=== PATIENT | male | born 1955 | race African-American/Black ===

== ENCOUNTER 2016-07-28 14:04 | Inpatient (IN) | payer OTHER ==
[~2016-07-28] VITALS: Ht 188 cm; Wt 94.0 kg
[~2016-07-28 14:04] MED LIST: APIX5TAB PO; ASPI325T4 PO; ATOR20TA38 PO; ISOS10TA2 PO; LISI10TA2 PO; METO25TA7 PO; MIRT15TA PO; MIRT45TA PO; Nicotine (14 Mg/24 Hr) TRANSDERM; TADA2.5T PO; THO50 PO; TYL650R PR
[2016-07-28 20:00] VITALS: Ht 188 cm; Wt 94.0 kg
[2016-07-28 20:04] VITALS: PULSE 85
[2016-07-28 20:10] VITALS: BP 158/82; RESP 21
[2016-07-28] MEDS ORDERED: METHYLPREDNISOLONE 40 MG INJ IV ONE (23:00)
[2016-07-28] MEDS ORDERED: ONDANSETRON 4 MG INJ IV PRN (23:00)
[2016-07-28] MEDS ORDERED: ACETAMINOPHEN 325 MG TAB PO PRN (23:00)
[2016-07-28] MEDS ORDERED: ALBUTEROL/IPRATROPIUM (NEB) 3 ML AMP HHN PRN (23:00)
[2016-07-28] MEDS: APIXABAN 5 MG TABLET PO SCH (23:39)
[2016-07-29] VITALS (10 sets, daily range): BP systolic 110–140; BP diastolic 59–87; PULSE 65–85; RESP 16–20
[2016-07-29 01:15] LABS: ADD SCAN DIFF NO
[2016-07-29 01:23] LABS: BASOPHILS % 0.3 % (0.0-2.0); EOSINOPHILS % 0.3 % (0.0-7.0); HEMATOCRIT 47.1 % (42.0-52.0); HEMOGLOBIN 16.1 g/dl (14.0-18.0); LYMPHOCYTES # 1.2 10^3/ul (0.8-2.9); LYMPHOCYTES % 10.2 % (15.0-51.0); MEAN CORPUSCULAR HEMOGLOBIN 31.1 pg (29.0-33.0); MEAN CORPUSCULAR HGB CONC 34.2 g/dl (32.0-37.0); MEAN CORPUSCULAR VOLUME 91.1 fl (82.0-101.0); MONOCYTE # 0.5 10^3/ul (0.3-0.9); MONOCYTES % 4.4 % (0.0-11.0); NEUTROPHILS % 84.5 % (39.0-77.0); PLATELET COUNT 216 10^3/UL (140-415); RED BLOOD COUNT 5.17 10^6/ul (4.70-6.10); RED CELL DISTRIBUTION WIDTH 13.8 % (11.5-14.5); WHITE BLOOD COUNT 11.8 10^3/ul (4.8-10.8)
[2016-07-29 01:33] LABS: ALBUMIN 3.9 g/dl (3.3-4.9); ALBUMIN/GLOBULIN RATIO 1.18; BILIRUBIN,INDIRECT 1.1 mg/dl (0-1.1); BILIRUBIN,TOTAL 1.1 mg/dl (0.2-1.3); CALCIUM 9.3 mg/dl (8.4-10.2); CREATININE 1.15 mg/dl (0.61-1.24); MAGNESIUM 1.8 mg/dl (1.7-2.5); POTASSIUM 4.2 mmol/L (3.5-5.1); TOTAL PROTEIN 7.2 g/dl (6.1-8.1)
[2016-07-29 03:24] LABS: INR 1.12; PARTIAL THROMBOPLASTIN TIME 27.2 Sec (25.0-35.0); PROTIME 14.4 Sec (12.2-14.2); PT RATIO 1.1
[2016-07-29] MEDS ORDERED: FUROSEMIDE 20 MG INJ IV SCH (06:00)
[2016-07-29] MEDS: ISOSORBIDE DINITRATE 10 MG TAB PO SCH ×2 (08:20→12:35)
[2016-07-29] MEDS: APIXABAN 5 MG TABLET PO SCH (08:21)
--- NOTE | 2016-07-29 08:48 | HP ---
Date/Time of Note Date/Time of Note DATE: 07/29/16 TIME: 08:25 Assessment/Plan VTE Prophylaxis VTE Prophylaxis Intervention: other (Eliquis) Lines/Catheters IV [facility]from [facility] Saline Lock Urinary Cath still in place: No Assessment/Plan Assessment/Plan IMPRESSION: 1. SOB, likely 2/2 COPD and CHF exacerbation 2. Probable new onset CHF 3. COPD/Asthma Exacerbation 4. History of CAD and myocardial infarction. 5. History of hypertension. 6. History of Dyslipidemia. 7. Hx of Systolic Dysfunction with EF of 40-45% 8. R LE DVT on Eliquis PLAN - Will treat for both COPD and CHF exacerbation. Pt's symptom of SOB has already resolved. Pt had a 2D-echo in 12/2015 which showed EF of 40-45%. No need to repeat during this hospitalization. - Lasix, Duonebs, steroid and continue home meds including Eliquis - Likely discharge in the afternoon. 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 He used his inhalers, but symptom persisted. At outside hospital, CXR showed pulmonary vascular congestion. He was given breathing treatment, lasix and here he received steroid and now his symptoms have resolved and he is feeling really well. Denied chest pain, N/V, f/c. He did however c/o pain in left side of his tongue after he accidentally bit it. . PMH/Family/Social Social History Smoking Status: Former smoker Exam/Review of Systems Vital Signs Vitals Vital Signs Date Time Temp Pulse Resp B/P Pulse Ox O2 Delivery O2 Flow Rate FiO2 07/29/16 08:17 65 07/29/16 07:48 Nasal Cannula 2.0 07/29/16 07:06 97.8 18 140/78 98 Intake and Output 07/28/16 07/28/16 07/29/16 14:59 22:59 06:59 Intake Total 320 ml Output Total 850 ml Balance -530 ml Exam Constitutional: alert, oriented, well developed Psych: nl mood/affect, no complaints Head: atraumatic, normocephalic Eyes: EOMI, PERRL Respiratory: clear to auscultation, normal air movement Cardiovascular: regular rate and rhythm Gastrointestinal: non-tender, soft Extremities: normal pulses Labs Result Diagram: 07/29/164907/29/1649 Medications Medications Current Medications Atorvastatin Calcium (Lipitor) 20 mg HS PO ; Start 07/29/16 at 21:00 Isosorbide Dinitrate (Isordil) 20 mg TID PO Last administered on 07/29/16 08: 20; Admin Dose 20 MG; Start 07/29/16 at 09:00 Lisinopril (Zestril) 10 mg DAILY PO Last administered on 07/29/16 08:20; Admin Dose 10 MG; Start 07/29/16 at 09:00 Metoprolol Succinate (Toprol Xl) 25 mg DAILY PO Last administered on 07/29/16 08:21; Admin Dose 25 MG; Start 07/29/16 at 09:00 Mirtazapine (Remeron) 45 mg HS PO ; Start 07/29/16 at 21:00 Aspirin (Aspirin) 162 mg DAILY PO Last administered on 07/29/16 08:19; Admin Dose 162 MG; Start 07/29/16 at 09:00 Furosemide (Lasix) 20 mg DAILY@06 IV Last administered on 07/29/16 05:44; Admin Dose 20 MG; Start 07/29/16 at 06:00 Ondansetron HCl (Zofran Inj) 4 mg Q6H PRN IV NAUSEA AND/OR VOMITING; Start at 23:00 Acetaminophen (Tylenol Tab) 650 mg Q6H PRN PO PAIN AND OR ELEVATED TEMP; Start 07/28/16 at 23:00 Apixaban (Eliquis) 5 mg BID PO Last administered on 07/29/16 08:21; Admin Dose 5 MG; Start 07/28/16 at 23:30 NERISSA DEMARCO MD Jul 29, 2016 08:37
[2016-07-29] MEDS ORDERED: ASPIRIN 81 MG TAB PO SCH (09:00)
[2016-07-29] MEDS ORDERED: HEPARIN 5,000 UNIT/0.5 ML VIAL SC SCH (09:00)
[2016-07-29] MEDS ORDERED: LISINOPRIL 10 MG TAB PO SCH (09:00)
[2016-07-29] MEDS ORDERED: METOPROLOL (XL) 25 MG TAB PO SCH (09:00)
--- NOTE | 2016-07-29 09:25 | RADRPT ---
PROCEDURE: XR Chest. CLINICAL INDICATION: Shortness of breath. TECHNIQUE: Single frontal view. COMPARISON: 01/20/2016. FINDINGS: The right internal jugular vein catheter has been removed. There is atelectasis at the lung bases, worse than seen previously. The lungs are otherwise clear. Surgical clips overlie the right mid asia g zone. The heart size is normal. There is no pleural effusion. There is no pneumothorax. IMPRESSION: 1. Worse appearance of the lung bases. 2. Right IJ catheter removed. RPTAT: QQ .Sam Henry MD, MD Date Time Electronically viewed and signed by .Sam Henry MD, MD on 07/29/2016 09:25 .R/
[2016-07-29] MEDS ORDERED: LAS20 PO (15:44)
[2016-07-29] MEDS ORDERED: MED4DP PO (15:44)
--- NOTE | 2016-07-29 15:45 | PDOCDIS ---
Discharge Instructions CONDITION Patient Condition: Good HOME CARE INSTRUCTIONS: Special Diet: CARDIAC ACTIVITY: Activity Restrictions: No Restrictions FOLLOW UP/APPOINTMENTS Appointments F/U WITH YOUR PCP IN 1-2 WEEKS BRITTANY LEBLANC Jul 29, 2016 15:45
--- NOTE | 2016-07-29 18:25 | DS ---
DATE OF ADMISSION: 07/28/2016 DATE OF DISCHARGE: 07/29/2016 DISCHARGE DIAGNOSES: 1. Acute respiratory distress likely secondary to congestive heart failure exacerbation. Patient d ischarged with Lasix. 2. Chronic obstructive pulmonary disease, stable. The patient given a Medrol Dosepak and possible chronic obstructive pulmonary disease exacerbation. 3. History of heart failure with an EF of 44 to 45%, acutely decompensated during this hospitalizat ion, now improved with Lasix. 4. History of right lower extremity deep venous thrombosis on Eliquis. 5. History of hypertension, stable. HOSPITAL COURSE: The patient is a 60-year-old male with history of heart failure, hypertension, ast hma, COPD, smoking history. The patient's baseline EF is 45%. The patient does have a history of p eripheral vascular disease as well as a DVT in the past for the right lower extremity. The patient presents with shortness of breath. The patient was given Lasix as well as breathing treatments. X- ray did show a worse appearance of the right lung base and his BNP was elevated. It was felt that h is shortness of breath was more from heart failure exacerbation. He does not have any Lasix at home . The patient did improve after receiving Lasix IV. Although once again he did also receive steroi ds but it is unlikely that this helped him so quickly, hence his presentation of rapid improvement i s more consistent with CHF exacerbation. On the day of discharge, the patient was doing well. He h ad no acute complaints, no longer complaining of shortness of breath. He denied any chest pain. His vitals and labs were stable. His physical exam was stable. His questions were answered. The patie nt was told that he would be given Lasix upon discharge and take it as needed for shortness of breat h. On the day of discharge there was no other acute issues. CONDITION ON DISCHARGE: Stable. DISPOSITION: Home. MEDICATIONS: Patient was given a prescription for Lasix 20 mg daily as needed for shortness of rob th as well as a Medrol Dosepak. The patient is to continue his other home medications. FOLLOWUP: The patient is to follow up with his PCP in 1 to 2 weeks. Greater than 30 minutes was spent coordinating discharge of this patient. Dictated By: BRITTANY GUEVARA/KIM Conf#: [id number] [facility]#: [id number]
[2016-07-29] MEDS ORDERED: MIRTAZAPINE 15 MG TAB PO SCH (21:00)
[2016-07-29] MEDS ORDERED: ATORVASTATIN 20 MG TAB PO SCH (21:00)
== END 2016-07-29 17:35 | disposition home or self-care (01) | DRG 292 ==
LOC: TEL 18:41
PROVIDERS: ADMIT Family Medicine; ATTEND Family Medicine
DX: I11.0 Hypertensive heart disease with heart failure (principal); J44.1 Chronic obstructive pulmonary disease with (acute) exacerbation; I73.9 Peripheral vascular disease, unspecified; Z79.01 Long term (current) use of anticoagulants; J45.909 Unspecified asthma, uncomplicated; I25.10 Atherosclerotic heart disease of native coronary artery without angina pectoris; I25.2 Old myocardial infarction; E78.5 Hyperlipidemia, unspecified; I50.9 Heart failure, unspecified; Z86.718 Personal history of other venous thrombosis and embolism; Z87.891 Personal history of nicotine dependence
CPT/HCPCS: 71010; 80053; 83735; 83880; 84100; 84484; 85025; 85610; 85730; J1940; J2920

== ENCOUNTER 2017-06-27 16:04 | Inpatient (IN) | END 2017-07-14 19:48 | DRG 240 ==

== ENCOUNTER 2018-01-06 13:36 | Inpatient (IN) | END 2018-01-12 15:13 | disposition home health service (06) | DRG 282 ==

== ENCOUNTER 2018-01-23 15:28 | Inpatient (IN) | END 2018-01-29 20:16 | disposition home or self-care (01) | DRG 871 ==

== ENCOUNTER 2018-02-03 04:46 | Inpatient (IN) | END 2018-02-05 14:00 | disposition home or self-care (01) | DRG 291 ==

== ENCOUNTER 2018-03-28 13:35 | Inpatient (IN) | payer OTHER ==
[~2018-03-28] VITALS: Ht 127 cm; Wt 74.0 kg
[~2018-03-28 13:35] MED LIST changes: -APIX5TAB PO; +ASCO500C7 PO; -ASPI325T4 PO; +ATOR-2 PO; -ATOR20TA38 PO; +BUDE0.5A HHN; +CARV12.579 PO; +FERGON PO; +FURO40TA4 PO; +IPRA3AMP29 HHN; -ISOS10TA2 PO; +LEVO500T48 PO; -LISI10TA2 PO; +LISI2.5T59 PO; -METO25TA7 PO; -MIRT15TA PO; -Nicotine (14 Mg/24 Hr) TRANSDERM; +PANT40TA4 PO; +SPIR25TA PO; -TADA2.5T PO; +TAMS-14 PO; +TIOT18CA INH; -TYL650R PR; +Vancomycin Iv Per Pharmacy XX
--- NOTE | 2018-03-28 13:38 | ERD ---
ER Documentation Chief Complaint Chief Complaint rt leg pain, sob HPI The patient is a 62-year-old male, presenting to the ER because of acute bilateral lower extremity stump pain for 5 days, worse on the right than the left. He had right lower extremity above knee amputation last year, left lower extremity above-knee amputation 9 months ago. He denies fever, chills, complains of intermittent cough for 2 weeks, denies neck pain, chest pain with vomiting/radiation/exertion/diaphoresis, complains of dyspnea, worse with urination. He denies diarrhea, constipation. He smokes and drinks and does cocaine and marijuana Medical history: Dyslipidemia, COPD, pulmonary hypertension, CAD, history of CHF, depression, bipolar Past surgical history: Bilateral above-knee amputation, infected vascular graft was removed, detail is uncleared ROS All systems reviewed and are negative except as per history of present illness. Medications Home Meds Active Scripts Spironolactone* (Aldactone*) 25 Mg Tablet, 25 MG PO DAILY for 90 Days, #90 TAB Prov:NIKI MCCARTHY MD 02/04/18 Furosemide* (Furosemide*) 40 Mg Tablet, 40 MG PO BID for 60 Days, #120 TAB 5 Re fills Prov:NIKI MCCARTHY MD 02/04/18 Pantoprazole* (Pantoprazole*) 40 Mg Tablet.dr, 40 MG PO DAILY@06 for 30 Days, #30 TAB 2 Refills Prov:MASTER HOWARD 01/29/18 Budesonide* (Budesonide*) 0.5 Mg/2 Ml Ampul.neb, 0.5 MG HHN BID RESP THERAPY for 30 Days, #30 AMP 2 Refills Prov:MASTER HOWARD 01/29/18 Tiotropium Jber* (Spiriva*) 18 Mcg Cap.w.dev, 1 INH INH DAILY for 30 Days, #30 DOSE 2 Refills Prov:MASTER HOWARD 01/29/18 Tamsulosin Hcl* (Flomax*) 0.4 Mg Cap.er.24h, 0.4 MG PO HS for 30 Days, #30 CAP 2 Refills Prov:MASTER HOWARD 01/29/18 Ipratropium-Albuterol (Ipratropium-Albuterol) 0.5-3 Mg/3 Ml Ampul.neb, 3 ML HHN Q6HWA RESP THERAPY for 30 Days, #30 DOSE Prov:MASTER HOWARD. 01/29/18 Ferrous Gluconate* (Fergon*) 325 Mg Tab, 325 MG PO BID, #60 TAB 2 Refills Prov:MASTER HOWARD. 01/29/18 Reported Medications Metoprolol Succinate* (Toprol XL*) 25 Mg Tab.sr.24h, 12.5 MG PO DAILY, #30 TAB 03/28/18 Montelukast Sodium* (Montelukast Sodium*) 10 Mg Tablet, 10 MG PO QHS, #30 TAB 03/28/18 Apixaban* (Eliquis*) 5 Mg Tablet, 5 MG PO BID, TAB 03/28/18 Cholecalciferol (Vitamin D3) (Vitamin D-3) 2,000 Unit Tablet, 2000 UNIT PO BID, TAB 03/28/18 Atorvastatin* (Atorvastatin*) 80 Mg Tablet, 80 MG PO QHS, #30 TAB 06/27/17 Discontinued Reported Medications Carvedilol* (Carvedilol*) 12.5 Mg Tablet, 12.5 MG PO BID, #60 TAB HOLD FOR SBP LESS THAN <110 OR HR<60 06/27/17 Ascorbic Acid* (Vitamin C*) 500 Mg Capsule.sa, 500 MG PO DAILY, CAP 06/27/17 Discontinued Scripts Lisinopril* (Lisinopril*) 2.5 Mg Tablet, 2.5 MG PO DAILY, #30 TAB Prov:NIKI MCCARTHY MD 02/04/18 Levofloxacin* (Levaquin*) 500 Mg Tablet, 500 MG PO DAILY for 4 Days, #4 TAB Prov:MASTER HOWARDDolores 01/29/18 [Vancomycin Iv Per Pharmacy] 1 EA EACH No Conflict Check, 0 EA XX .PER PROTOCOL per previous orders Prov:MASTER HOWARDDolores 01/29/18 Allergies Allergies: Coded Allergies: tetracycline (Verified Allergy, Intermediate, RASH, 03/28/18) PMhx/Soc History of Surgery: Yes (b/l AKA, heart graft) Anesthesia Reaction: No Hx Neurological Disorder: No Hx Respiratory Disorders: Yes (COPD; Pulmonary HTN) Hx Cardiac Disorders: Yes (CAD, CHF, HTN, s/p heart graft) Hx Psychiatric Problems: Yes (bipolar, depression) Hx Miscellaneous Medical Probl: No Hx Alcohol Use: No Hx Substance Use: Yes (cocaine, marijuana, & ?meth) Hx Tobacco Use: Yes Physical Exam Vitals Vital Signs Date Temp Pulse Resp B/P (MAP) Pulse Ox O2 O2 Flow FiO2 Time Delivery Rate 03/28/18 98.1 79 18 131/79 96 13:42 (96) Physical Exam Const: No acute distress. Head: Atraumatic. Eyes: Normal Conjunctiva. ENT: Normal External Ears, Nose and Mouth. Neck: Full range of motion. No meningismus. Resp: Bibasilar crackle Cardio: Regular rate and rhythm. Abd: Soft, non distended, normal bowel sounds, non tender. Skin: No petechiae or rashes. Back: No midline or flank tenderness. Ext: Bilateral stump edema, no posterior thigh tenderness. Right stump mild edema, not warm to touch. Minimal erythema at the right groin Neur: Awake and alert. No focal deficit Psych: Normal Mood and Affect. Result Diagram: 03/28/18 1409 03/28/18 1409 Results 24 hrs Laboratory Tests Test 03/28/18 14:09 White Blood Count 13.6 10^3/ul Red Blood Count 5.28 10^6/ul Hemoglobin 12.5 g/dl Hematocrit 41.1 % Mean Corpuscular Volume 77.8 fl Mean Corpuscular Hemoglobin 23.7 pg Mean Corpuscular Hemoglobin Concent 30.4 g/dl Red Cell Distribution Width 20.2 % Platelet Count 393 10^3/UL Mean Platelet Volume 11.0 fl Immature Granulocytes % 1.000 % Neutrophils % 79.9 % Lymphocytes % 12.3 % Monocytes % 6.7 % Eosinophils % 0.0 % Basophils % 0.1 % Nucleated Red Blood Cells % 0.0 /100WBC Immature Granulocytes # 0.130 10^3/ul Neutrophils # 10.9 10^3/ul Lymphocytes # 1.7 10^3/ul Monocytes # 0.9 10^3/ul Eosinophils # 0.0 10^3/ul Basophils # 0.0 10^3/ul Nucleated Red Blood Cells # 0.0 10^3/ul Prothrombin Time 20.2 Sec Prothrombin Time Ratio 1.6 INR International Normalized Ratio 1.69 Activated Partial Thromboplast Time 33.4 Sec Sodium Level 133 mmol/L Potassium Level 4.0 mmol/L Chloride Level 90 mmol/L Carbon Dioxide Level 30 mmol/L Anion Gap 13 Blood Urea Nitrogen 25 mg/dl Creatinine 0.95 mg/dl Est Glomerular Filtrat Rate mL/min > 60 mL/min Glucose Level 113 mg/dl Calcium Level 9.4 mg/dl Troponin I 0.015 ng/ml B-Type Natriuretic Peptide 84268 PG/ML Current Medications Medications Dose Sig/Dario Start Time Status Last (Trade) Ordered Route PRN Stop Time Admin Dose Reason Admin Furosemide 40 mg ONCE ONCE 03/28/18 DC (Lasix) IV 15:00 03/28/18 15:01 Ketorolac 30 mg ONCE STAT 03/28/18 DC Tromethamine IV 14:56 (Toradol) 03/28/18 14:57 Procedures/MDM [place] [address] Radiology Main Line: [phone] DIAGNOSTIC IMAGING REPORT Patient: CLINT ZAMORA : 1955 Age: 62 Sex: M MR #: [id number] DOS: 03/28/18 1356 Ordering MD: ESPERANZA HOPPER MD Location: E/R Room/Bed: PROCEDURE: XR Chest. CLINICAL INDICATION: Chest pain TECHNIQUE: Single frontal view of the chest was obtained COMPARISON: CR CHEST 05/25/2017 FINDINGS: The heart is enlarged. The thoracic aorta is calcified. There is right pleural thickening and right lower lobe atelectasis. The left lung base was not completely included. There is no pneumothorax. RPTAT: AA IMPRESSION: Mild cardiomegaly. Calcified aorta consistent with atherosclerotic disease. Right pleural thickening and right lower lobe atelectasis. .Alec Rico MD, Date Time Electronically viewed and signed by .Alec Rico MD, MD on 03/28/2018 14:23 .S/ CC: ESPERANZA HOPPER MD [id number] [place] [address] Radiology Main Line: [phone] DIAGNOSTIC IMAGING REPORT Patient: CLINT ZAMORA : 1955 Age: 62 Sex: M [id number] DOS: 03/28/18 1356 Ordering MD: ESPERANZA HOPPER MD Location: E/R Room/Bed: PROCEDURE: US Lower extremity Venous. CLINICAL INDICATION: Bilateral lower extremity edema TECHNIQUE: Multiple sonographic images of the bilateral lower extremity deep venous system was obtained utilizing grayscale, color-flow, compressive sonography and doppler imaging with augmentation. The images were reviewed on a PACS workstation. COMPARISON: None. FINDINGS: There is normal compressibility and flow within the bilateral common femoral, femoral veins. The patient is status post bilateral AKA. RPTAT: AA IMPRESSION: No sonographic evidence for deep venous thrombosis. .Alec Rico MD, MD Date Time Electronically viewed and signed by .Alec Rico MD, MD on 03/28/2018 14:55 .S/ CC: ESPERANZA HOPPER MD [phone] EKG: Read by emergency physician Rate/Rhythm: Sinus tachycardia 102 beats/min QRS, ST, T-waves: No ST elevation, no T inversion. LAE, RVH, inferior , anterolateral Q's Impression: Abnormal EKG MEDICAL MAKING DECISION: The patient is a 62-year-old male, presenting with acute CHF exacerbation, acute bilateral stump pain of unclear etiology. He was treated with Lasix 40 mg IV for acute CHF exacerbation, Toradol 30 mg IV for bilateral stump pain with good response The differential diagnoses considered include but are not limited to asthma, COPD, pneumonia, pulmonary embolus, pleural effusion, congestive heart failure, stump cellulitis, DVT, phantom pain. Departure Diagnosis: Primary Impression: CHF (congestive heart failure) Additional Impressions: Pain of amputation stump of right lower extremity Anemia Condition: Good Comments I discussed the findings with the patient. I discussed the patient with the hospitalist Dr. Carranza at 3:15 PM who was made aware of the lab, the treatment, the patient condition. The patient is admitted to Tel Obs Disclaimer: Inadvertent spelling and grammatical errors are likely due to EHR/dictation software use and do not reflect on the overall quality of patient care. Also, please note that the electronic time recorded on this note does not necessarily reflect the actual time of the patient encounter. ESPERANZA HOPPER MD Mar 28, 2018 13:38
[2018-03-28] MEDS ORDERED: KETOROLAC 30 MG INJ IV STA (14:56)
[2018-03-28] MEDS ORDERED: FUROSEMIDE 40 MG INJ IV ONE (15:00)
[2018-03-28] MEDS ORDERED: CHOL200056 PO (15:17)
[2018-03-28] MEDS ORDERED: APIX5TAB PO (15:18)
[2018-03-28] MEDS ORDERED: MONT10TA24 PO (15:18)
[2018-03-28] MEDS ORDERED: METO-335 PO (15:19)
--- NOTE | 2018-03-28 16:28 | HP ---
Date/Time of Note Date/Time of Note DATE: 03/28/18 TIME: 16:28 Assessment/Plan VTE Prophylaxis SCD applied (from Nsg): Yes Pharmacological prophylaxis: LMWH Lines/Catheters IV Catheter Type (from Nrsg): Saline Lock Assessment/Plan Assessment/Plan 1. Acute pain in right thigh - No acute trauma to area and patient has been trying to self medicate. Planning to see pain management but has not been successful with appointment yet - LE US negative for DVT. Will check arterial studies - Pain control and if not effective, will ask pain management for assistance - PT/OT 2. Acute on chronic systolic heart failure - due to missed Lasix doses - Cardiology consultation placed. Will start back on Lasix and continue Aldactone as well - Echo results noted from prior admission - BNP noted 3. Wounds on elbows and sacrum - will have wound care consultation evaluate need for surgical intervention - does not appear infected but given elevated WBC with neutrophils, will empirically treat with antibiotics 4. CAD - continue all home medications - stable 5. b/l AKA secondary PVD - PT/OT to assist with teaching how to transfer 6. Diet - Cardiac 7. DVT ppx - LMWH 8. Code status - Full 9. Disposition - Admit to telemetry for treatment of right leg pain and CHF exacerbation HPI/ROS Admit Date/Time Admit Date/Time 03/28/18 1500 Hx of Present Illness 62 yo M with PMH systolic CHF, CAD, COPD, and b/l AKA secondary to PVD presents to ED with worsening pain in right thigh. Patient states he has been experiencing pain in the thigh for the past 5 days. He admits to trying cocaine, marijuana, and alcohol for pain relief but no improvement. He last used substances on Monday. Patient denies any trauma to area and unsure why he is experiencing the pain. Patient also admits to misplacing his Lasix bottle and has not taken his medication in 2 days. He admits to shortness of breath but denies any chest pain, palpations, wheezing, dizziness, LOC, abdominal issues, or urinary issues. He is concerned about noted drainage around his groin area as well. He has been using his elbows to readjust himself due to not being able to use his legs which has been causing skin breakdown. Patient states he lives alone but has good family support. Refusing SNF placement as well. ROS All 12 systems reviewed and pertinent positives as per HPI. All others negative. Constitutional: No chills, No fatigue, No nausea Eyes: No discharge ENT: No congestion Respiratory: shortness of breath; No cough, No sputum, No wheezing Cardiovascular: edema; No chest pain, No lightheadedness, No palpitations Gastrointestinal: No pain, No constipation, No diarrhea, No nausea, No vomiting Genitourinary: no complaints Musculoskeletal: other (right thigh pain) Skin: rash (groin), skin lesions (elbows, buttocks) Neurologic: no complaints Endocrine: no complaints Lymphatic: no complaints Psychological: nl mood/affect Immunologic: no complaints PMH/Family/Social Past Medical History Medical History: congestive heart failure, coronary artery disease, deep vein thrombosis, other (PVD s/p b/l AKA, COPD) Coded Allergies: tetracycline (Verified Allergy, Intermediate, RASH, 03/28/18) Past Surgical History Past Surgical Hx: other (b/l AKA, right graft) Family History Significant Family History: no pertinent family hx Social History Alcohol Use: occasionally Smoking Status: Current every day smoker Drug Use: cocaine, marijuana Exam/Review of Systems Vital Signs Vitals Vital Signs Date Temp Pulse Resp B/P (MAP) Pulse Ox O2 O2 Flow FiO2 Time Delivery Rate 03/28/18 100 18 118/75 100 Room Air 16:08 (89) 03/28/18 98.2 15:25 Exam Exam General: Patient is currently sitting in bed, no acute distress. answering questions appropriately HEENT: Atraumatic, normocephalic. The pupils are equal, round and reactive. Extraocular motor are intact Neck: Supple with full range of motion. No rigidity or meningismus Lungs: Diminished breath rounds bilaterally, crackles at the bases, nonlabored breathing. no wheezing Heart: Normal S1-S2, Regular rhythm and rate. Abdomen: Soft , nontender, nondistended , bowel sounds are present. No guarding no rebound tenderness , No masses or organomegaly. No costovertebral temporal angle mass Extremities: Bilateral AKA. tenderness with palpation right thigh with notable swelling. cool to touch Neurologic: Normal mental status, speech normal, cranial nerves II through XII are intact, motor and sensory are intact, Skin: moisture and erythema groin folds b/l, R>L, abrasions on elbows bilaterally without discharge Medications Medications Home medications reviewed Current Medications Atorvastatin Calcium (Lipitor) 80 mg QHS PO ; Start 03/28/18 at 21:00; Status UNV Budesonide (Pulmicort (Neb)) 0.5 mg BID RESP THERAPY HHN ; Start 03/28/18 at 20:00; Status UNV Ferrous Gluconate (Fergon) 325 mg BID PO ; Start 03/28/18 at 21:00; Status UNV Albuterol/ Ipratropium (Duoneb) 3 ml Q6HWA RESP THERAPY HHN ; Start 03/28/18 a t 20:00; Status UNV Metoprolol Succinate (Toprol Xl) 12.5 mg DAILY PO ; Start 03/29/18 at 09:00; Status UNV Montelukast Sodium (Singulair) 10 mg QHS PO ; Start 03/28/18 at 21:00; Status UNV Pantoprazole (Protonix Tab) 40 mg DAILY@06 PO ; Start 03/29/18 at 06:00; Status UNV Spironolactone (Aldactone) 25 mg DAILY PO ; Start 03/29/18 at 09:00; Status UNV Tamsulosin HCl (Flomax) 0.4 mg HS PO ; Start 03/28/18 at 21:00; Status UNV Tiotropium Rochelle (Spiriva) 1 inh DAILY INH ; Start 03/29/18 at 09:00; Status UNV Miscellaneous Information 2,000 unit BID PO ; Start 03/28/18 at 21:00; Status UNV Albuterol (Proventil 0.083% (Neb)) 2.5 mg Q2H RESP THERAPY PRN HHN SHORTNESS OF BREATH; Start 03/28/18 at 16:30; Status UNV Acetaminophen/ Hydrocodone Bitart (Agency (5/325)) 1 tab Q4H PRN PO MODERATE PAIN LEVEL 4-6; Start 03/28/18 at 16:30; Status UNV Acetaminophen/ Hydrocodone Bitart (Agency (10/325)) 1 tab Q4H PRN PO SEVERE PAIN LEVEL 7-10; Start 03/28/18 at 16:30; Status UNV Morphine Sulfate (morphine) 2 mg Q4H PRN IV SEVERE PAIN LEVEL 7-10; Start 03/28/18 at 16:30; Status UNV Results Result Diagram: 03/28/18 1409 03/28/18 1409 Results 24 hrs Laboratory Tests Test 03/28/18 14:09 White Blood Count 13.6 #H Red Blood Count 5.28 # Hemoglobin 12.5 #L Hematocrit 41.1 #L Mean Corpuscular Volume 77.8 L Mean Corpuscular Hemoglobin 23.7 L Mean Corpuscular Hemoglobin Concent 30.4 L Red Cell Distribution Width 20.2 H Platelet Count 393 # Mean Platelet Volume 11.0 H Immature Granulocytes % 1.000 H Neutrophils % 79.9 H Lymphocytes % 12.3 L Monocytes % 6.7 Eosinophils % 0.0 Basophils % 0.1 Nucleated Red Blood Cells % 0.0 Immature Granulocytes # 0.130 H Neutrophils # 10.9 H Lymphocytes # 1.7 Monocytes # 0.9 Eosinophils # 0.0 Basophils # 0.0 Nucleated Red Blood Cells # 0.0 Prothrombin Time 20.2 H Prothrombin Time Ratio 1.6 INR International Normalized Ratio 1.69 Activated Partial Thromboplast Time 33.4 Sodium Level 133 L Potassium Level 4.0 Chloride Level 90 L Carbon Dioxide Level 30 Anion Gap 13 Blood Urea Nitrogen 25 H Creatinine 0.95 Est Glomerular Filtrat Rate mL/min > 60 Glucose Level 113 Calcium Level 9.4 Troponin I 0.015 B-Type Natriuretic Peptide 61342 H Imaging PROCEDURE: XR Chest. CLINICAL INDICATION: Chest pain TECHNIQUE: Single frontal view of the chest was obtained COMPARISON: CR CHEST 05/25/2017 FINDINGS: The heart is enlarged. The thoracic aorta is calcified. There is right pleural thickening and right lower lobe atelectasis. The left lung base was not completely included. There is no pneumothorax. RPTAT: AA IMPRESSION: Mild cardiomegaly. Calcified aorta consistent with atherosclerotic disease. Right pleural thickening and right lower lobe atelectasis. .Alec Rico MD, Date Time Electronically viewed and signed by .Alec Rico MD, on 03/28/2018 14:23 SUSAN FAULKNER MD Mar 28, 2018 16:28
[2018-03-28] MEDS ORDERED: NITROGLYCERIN (SL) 0.4 MG TAB SL PRN (16:30)
[2018-03-28] MEDS ORDERED: NACL 0.9% 3 ML SYG IV SCH (16:30)
[2018-03-28] MEDS ORDERED: HYDROCODONE/APAP (10/325) TAB PO PRN (16:30)
[2018-03-28] MEDS ORDERED: ONDANSETRON 4 MG INJ IV PRN (16:30)
[2018-03-28] MEDS ORDERED: ALBUTEROL 0.083% (NEB) 2.5 MG/3 ML AMP HHN PRN (16:30)
[2018-03-28] MEDS ORDERED: HYDROCODONE/APAP (5/325) TAB PO PRN (16:30)
[2018-03-28 17:46] VITALS: PULSE 97
[2018-03-28] MEDS: FUROSEMIDE 40 MG INJ IV SCH (18:18)
[2018-03-28 18:35] VITALS: BP 124/69; PULSE 52; RESP 16
[2018-03-28] MEDS ORDERED: PENDING SANTYL ORDER FOR WOUND CARE XX PRN (19:00)
[2018-03-28] MEDS: BUDESONIDE (NEB) 0.5MG/2ML AMP HHN SCH (19:32)
[2018-03-28] MEDS: ALBUTEROL/IPRATROPIUM (NEB) 3 ML AMP HHN SCH (19:32)
[2018-03-28 19:57] VITALS: Ht 127 cm; Wt 74.0 kg
[2018-03-28 20:00] VITALS: BP 130/79; PULSE 101; PULSE 99; RESP 17
[2018-03-28] MEDS: morphine 2 MG INJ IV PRN (20:48)
[2018-03-28] MEDS: CHOLECALCIFEROL 2,000 UNIT CAP PO SCH (20:49)
[2018-03-28] MEDS: MONTELUKAST 10 MG TAB PO SCH (20:49)
[2018-03-28] MEDS: NYSTATIN 30 GM POWDER BTL TOP SCH (20:49)
[2018-03-28] MEDS: FERROUS GLUCONATE (EC) 325 MG TAB PO SCH (20:49)
[2018-03-28] MEDS: CEFTRIAXONE 1 GM/50 ML (PMX) 50 ML IVPB SCH (20:49)
[2018-03-28] MEDS: TAMSULOSIN (SR) 0.4 MG CAP PO SCH (20:49)
[2018-03-28] MEDS: ATORVASTATIN 80 MG TAB PO SCH (20:50)
[2018-03-28] MEDS ORDERED: NON-FORMULARY/PATIENT OWN MED (Cholecalciferol (Vitamin D3) (Vitamin D-3) 2,000 UNIT) PO SCH (21:00)
[2018-03-28] MEDS: SACUBITRIL/VALSARTAN (24mg-26mg) TABLET PO SCH (21:39)
--- NOTE | 2018-03-28 22:21 | CONS ---
DATE OF ADMISSION: 03/28/2018 DATE OF CONSULTATION: 03/28/2018 REASON FOR CONSULTATION: Cardiomyopathy, severely depressed left ventricular ejection fraction, abhishek estive heart failure exacerbation. REQUESTING PHYSICIAN: Dr. Carranza from the hospitalist service. HISTORY OF PRESENT ILLNESS: Mr. Solorio is a very pleasant 62-year-old male well known to myself from multiple prior hospital admissions, a primary office patient, with history of systolic congestive hea rt failure with last known left ventricular ejection fraction of approximately 20%, dyslipidemia, hyp ertension, substance abuse, COPD, prior tobacco intake, anemia, bilateral lower extremity amputation, who presents with right lower extremity stump pain and mild shortness of breath. The patient denied associated chest pain. Upon arrival, temperature 98.1, blood pressure 131/79, pulse 79, respiratory rate 18, satting 96%. The patient's labs are notable for white count of 13.6, hemoglobin 12.5, plat elet count 393; sodium 133, potassium 4.0, creatinine 0.9, BUN 25; troponin negative; BNP of 11,500; INR of 1.69. The patient underwent a venous ultrasound revealing no sonographic evidence of DVT and a chest x-ray revealing mild cardiomegaly, calcified aorta consistent with atherosclerotic disease, r ight pleural thickening, and right lower lobe atelectasis. The patient's electrocardiogram revealed sinus tachycardia, rate of 119, with right superior axis deviation and poor R-wave progression across the anterior precordial leads. The patient subsequently has received a dose of Lasix and Toradol fo r pain and is now admitted to the floor. Since admit to floor, patient continued to have leg pain, s tump pain. PAST MEDICAL HISTORY: As above in HPI. MEDICATIONS CURRENTLY IN HOSPITAL: 1. Toprol-XL 12.5 mg daily. 2. Aldactone 25 mg daily. 3. Spiriva. 4. Lovenox 40 mg subQ daily. 5. Protonix. 6. Lipitor. 7. Ferrous gluconate. 8. Flomax. 9. DuoNeb. 10. Lasix 40 mg IV b.i.d. 11. Albuterol. 12. Morphine. 13. PRN sublingual nitroglycerin. 14. PRN Colace. 15. PRN milk of magnesia. MEDICATIONS PRIOR TO ADMIT: 1. Aspirin. 2. Flomax. 3. Eliquis 5 mg p.o. b.i.d. 4. Ferrous gluconate. 5. Atorvastatin. 6. Toprol. 7. Aldactone. 8. Lasix 9. Singulair. 10. Protonix. ALLERGIES: TETRACYCLINE. SOCIAL HISTORY: No current tobacco. History of substance abuse. No EtOH intake currently. FAMILY HISTORY: No history of sudden cardiac or early CAD. REVIEW OF SYSTEMS: As above in HPI. CONSTITUTIONAL: No fevers or chills. PULMONARY: Shortness of breath. CARDIOVASCULAR: Congestive heart failure. GASTROINTESTINAL: No vomiting. GENITOURINARY: No hematuria. MUSCULOSKELETAL: Degenerative joint disease. PSYCHIATRIC: No documented psych history. NEUROLOGIC: No documented history of CVA. ENDOCRINE: No documented history of diabetes mellitus. PHYSICAL EXAMINATION: VITAL SIGNS: Temperature 98.2, blood pressure 118/75, pulse 100, respiratory rate 18, saturating 100 %. GENERAL: The patient is alert, awake, no acute distress. NECK: JVP approximately 8 to 9 cm of water. CHEST: Fair air movement throughout. HEART: Regular rate and rhythm, normal S1 and S2, laterally displaced PMI. ABDOMEN: Positive bowel sounds, soft. EXTREMITIES: Bilateral lower extremity amputation with stump pain, no noted ulcerations. LABORATORIES: As above in HPI with most recent from today: White count 13.6, hemoglobin 12.5, platel et count 393. Sodium 133, potassium 4.0, creatinine 0.9, BUN 25. Troponin negative. BNP of 11,500. INR 1.69. IMAGING STUDIES: As above in HPI. No further imaging studies for my review at this time. ECG: As above in HPI. No further electrocardiograms for my review at this time. IMPRESSION: 1. Congestive heart failure exacerbation, systolic, acute on chronic. 2. Cardiomyopathy with severely depressed left ventricular ejection fraction with last being approxi mately 20%. 3. Hypertension. 4. Dyslipidemia. 5. History of substance abuse. 6. Chronic obstructive pulmonary disease. 7. Bilateral lower extremity amputation and presenting with right stump pain. 8. Questionable history of intracardiac thrombus not seen by most recent echocardiogram dated 2017, but with severely depressed ejection fraction at that time of 20%. 9. Tobacco intake. RECOMMENDATIONS: 1. At this time, we would maintain patient on telemetry monitoring to follow rhythm and rate control closely. 2. We would continue the patient's baseline Toprol and we will reinitiate patient on afterload reduc tion with Entresto that he was taking as an outpatient, low dose. 3. Continue the patient's Lasix diuresis along with Aldactone for neurohormonal modulation in the se tting of systolic heart failure. 4. Continue the patient's statin therapy. 5. Vascular surgery evaluation of the patient's stump pain. 6. Smoking cessation. 7. Complete rule out for myocardial infarction to ensure the patient has not had any recent acute co ronary syndrome lending to recurrent bouts of congestive heart failure. Thank you for allowing me to take part in the care of this patient. I will continue to follow along very closely with you with further recommendations to be made as the patient progresses through his [facility] clinical course. Dictated By: VIVIAN MONTEMAYOR/KIM Conf#: [id number] DID#: [id number] CC: SUSAN CARRANZA MD;*EndCC*
[2018-03-29] VITALS (15 sets, daily range): BP systolic 111–136; BP diastolic 71–88; PULSE 93–196; RESP 16–18
[2018-03-29] MEDS: FUROSEMIDE 40 MG INJ IV SCH ×2 (05:45→18:29)
[2018-03-29] MEDS: PANTOPRAZOLE (EC) 40 MG TAB PO SCH (05:45)
[2018-03-29] MEDS: morphine 2 MG INJ IV PRN (05:53)
[2018-03-29] MEDS ORDERED: MAGNESIUM SULFATE 1 GM/D5W 100 ML IVPB ONE (06:30)
[2018-03-29] MEDS: POTASSIUM CHLORIDE (SR) 20 MEQ TAB PO SCH (06:42)
[2018-03-29] MEDS: ALBUTEROL/IPRATROPIUM (NEB) 3 ML AMP HHN SCH ×3 (07:55→19:37)
[2018-03-29] MEDS: BUDESONIDE (NEB) 0.5MG/2ML AMP HHN SCH ×2 (08:03→19:37)
--- NOTE | 2018-03-29 08:34 | PN ---
Date/Time of Note Date/Time of Note DATE: 03/29/18 TIME: 08:34 Assessment/Plan VTE Prophylaxis Risk score (from Nsg)>0 risk: 7 SCD applied (from Ns): No SCD contraindicated: bilateral amputee Pharmacological prophylaxis: apixaban Lines/Catheters IV Catheter Type (from Nrsg): Saline Lock Assessment/Plan Assessment/Plan 1. Sustained vtach - improving after given am dose of BB and entreso - Cardiology on board and increased BB and given dose of Digoxin - If reoccurs will give Adenosine 6mg x1 and repeat if needed 2. Acute pain in right thigh - Pain management consultation placed and appreciate recommendations - LE US negative for DVT. 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 Discussed with vascular who said it was chronic and will need to follow up with outpatient clinic at [facility]. Patient had a failed left groin graft. - PT/OT 2. Acute on chronic systolic heart failure - Cardiology consultation placed and appreciate recommendations. continue diuresis - Echo results noted from prior admission with EF 20% - BNP noted 3. Wounds on elbows and sacrum - wound consultation appreciated 4. CAD - continue all home medications - stable 5. b/l AKA secondary PVD - PT/OT consultation appreciated 6. Disposition - Continue monitoring on Telemetry given episode of Vtach this am - pain control per pain management Subjective 24 Hr Interval Summary Free Text/Dictation Patient had episode of sustained vtach this am but was asymptomatic. Given entreso and Toprol and HR improved to 108. Patient states pain is well controlled also. Exam/Review of Systems Vital Signs Vitals Vital Signs Date Temp Pulse Resp B/P (MAP) Pulse Ox O2 O2 Flow FiO2 Time Delivery Rate 03/29/18 95 18 97 21 08:02 03/29/18 98.0 117/81 07:11 (93) 03/28/18 Room Air 18:35 Intake and Output 03/28/18 03/28/18 03/29/18 1414:59 22:59 06:59 IntakeIntake Total 600 ml OutputOutput Total 1400 ml BalanceBalance -800 ml Exam General: Patient is currently sitting in bed, no acute distress Neck: Supple Lungs: Diminished breath rounds bilaterally, nonlabored breathing. no wheezing Heart: Normal S1-S2, Regular rhythm and tachycardia Abdomen: Soft , nontender, nondistended , bowel sounds are present. No guarding no rebound tenderness Extremities: Bilateral AKA. nontender to palpation Skin: no new abrasions Medications Medications Current Medications Atorvastatin Calcium (Lipitor) 80 mg QHS PO Last administered on 03/28/18at 20:50; Admin Dose 80 MG; Start 03/28/18 at 21:00 Budesonide (Pulmicort (Neb)) 0.5 mg BID RESP THERAPY HHN Last administered on 03/28/18at 19:32; Admin Dose 0.5 MG; Start 03/28/18 at 20:00 Ferrous Gluconate (Fergon) 325 mg BID PO Last administered on 03/28/18at 20:49; Admin Dose 325 MG; Start 03/28/18 at 21:00 Albuterol/ Ipratropium (Duoneb) 3 ml Q6HWA RESP THERAPY HHN Last administered on 03/29/18at 07:55; Admin Dose 3 ML; Start 03/28/18 at 20:00 Metoprolol Succinate (Toprol Xl) 12.5 mg DAILY PO ; Start 03/29/18 at 09:00 Montelukast Sodium (Singulair) 10 mg QHS PO Last administered on 03/28/18at 20:49; Admin Dose 10 MG; Start 03/28/18 at 21:00 Pantoprazole (Protonix Tab) 40 mg DAILY@06 PO Last administered on 03/29/18at 05:45; Admin Dose 40 MG; Start 03/29/18 at 06:00 Spironolactone (Aldactone) 25 mg DAILY PO ; Start 03/29/18 at 09:00 Tamsulosin HCl (Flomax) 0.4 mg HS PO Last administered on 03/28/18at 20:49; Admin Dose 0.4 MG; Start 03/28/18 at 21:00 Tiotropium [place] (Spiriva) 1 inh DAILY INH ; Start 03/29/18 at 09:00 Albuterol (Proventil 0.083% (Neb)) 2.5 mg Q2H RESP THERAPY PRN HHN SHORTNESS OF BREATH; Start 03/28/18 at 16:30 Acetaminophen/ Hydrocodone Bitart ([place] (5/325)) 1 tab Q4H PRN PO MODERATE PAIN LEVEL 4-6; Start 03/28/18 at 16:30 Acetaminophen/ Hydrocodone Bitart ([place] (10/325)) 1 tab Q4H PRN PO SEVERE PAIN LEVEL 7-10; Start 03/28/18 at 16:30 Morphine Sulfate (morphine) 2 mg Q4H PRN IV SEVERE PAIN LEVEL 7-10 Last administered on 03/29/18at 05:53; Admin Dose 2 MG; Start 03/28/18 at 16:30 IV Flush (NS 3 ml) 3 ml PER PROTOCOL IV ; Start 03/28/18 at 16:30 Ondansetron HCl (Zofran Inj) 4 mg Q6H PRN IV NAUSEA AND/OR VOMITING; Start 03/28/18 at 16:30 Nitroglycerin (Nitroglycerin (Sl Tab) 0.4 Mg) 1 tab Q5M PRN SL CHEST PAIN; Start 03/28/18 at 16:30 Acetaminophen (Tylenol Tab) 650 mg Q6H PRN PO PAIN LEVEL 1-3 OR FEVER; Start 03/28/18 at 16:30 Docusate Sodium (Colace) 100 mg Q12H PRN PO CONSTIPATION; Start 03/28/18 at 16:30 Magnesium Hydroxide (Milk Of Mag) 30 ml DAILY PRN PO CONSTIPATION; Start 03/28/18 at 16:30 Enoxaparin Sodium (Lovenox) 40 mg DAILY SC ; Start 03/29/18 at 09:00 Furosemide (Lasix) 40 mg BID DIURETICS IV Last administered on 03/29/18at 05:45; Admin Dose 40 MG; Start 03/28/18 at 18:00 Sacubitril/ Valsartan (Entresto 24 Mg-26 Mg) 1 tab BID PO Last administered on 03/28/18at 21:39; Admin Dose 1 TAB; Start 03/28/18 at 21:00 Nystatin (Nystatin Powder) 1 applic BID TOP Last administered on 03/28/18at 20:49; Admin Dose 1 APPLIC; Start 03/28/18 at 21:00 Cholecalciferol (Vitamin D) 2,000 unit BID PO Last administered on 03/28/18at 20:49; Admin Dose 2,000 UNIT; Start 03/28/18 at 21:00 Ceftriaxone Sodium 50 ml @ 100 mls/hr Q24H IVPB Last administered on 03/28/18at 20:49; Admin Dose 100 MLS/HR; Start 03/28/18 at 19:30 Miscellaneous Information (Pending Santyl Order For Wound Care) This patient rivera... PRN PRN XX soiled; Start 03/28/18 at 19:00 Influenza Virus Vaccine Quadrival (Fluzone) 0.5 ml ONCE ONCE IM* ; Start 03/17 08/02 at 10:00; Stop 03/30/18 at 10:01 Potassium Chloride (Klor-Con 20) 40 meq DAILY PO Last administered on 03/29/18at 06:42; Admin Dose 40 MEQ; Start 03/29/18 at 06:30 Results Result Diagram: 03/29/18 0452 03/29/18 0452 Results 24 hrs Laboratory Tests Test 03/28/18 14:09 03/28/18 20:20 03/29/18 00:22 03/29/18 04:52 White Blood 13.6 #H 11.1 H Count Red Blood Count 5.28 # 5.08 Hemoglobin 12.5 #L 12.1 L Hematocrit 41.1 #L 37.5 L Mean Corpuscular 77.8 L 73.8 L Volume Mean Corpuscular 23.7 L 23.8 L Hemoglobin Mean Corpuscular 30.4 L 32.3 Hemoglobin Brianna nt Red Cell 20.2 H 19.9 H Distribution Width Platelet Count 393 # 361 Mean Platelet 11.0 H 11.3 H Volume Immature 1.000 H 0.500 H Granulocytes % Neutrophils % 79.9 H 77.9 H Lymphocytes % 12.3 L 14.6 L Monocytes % 6.7 6.6 Eosinophils % 0.0 0.2 Basophils % 0.1 0.2 Nucleated Red 0.0 0.0 Blood Cells % Immature 0.130 H 0.060 H Granulocytes # Neutrophils # 10.9 H 8.6 H Lymphocytes # 1.7 1.6 Monocytes # 0.9 0.7 Eosinophils # 0.0 0.0 Basophils # 0.0 0.0 Nucleated Red 0.0 0.0 Blood Cells # Prothrombin Time 20.2 H Prothrombin Time 1.6 Ratio INR 1.69 International Normalized Ratio Activated 33.4 Partial Thrombop last Time Sodium Level 133 L 136 Potassium Level 4.0 3.2 L Chloride Level 90 L 94 L Carbon Dioxide 30 31 Level Anion Gap 13 11 Blood Urea 25 H 33 H Nitrogen Creatinine 0.95 1.19 Est Glomerular > 60 > 60 Filtrat Rate mL/min Glucose Level 113 153 Calcium Level 9.4 9.0 Troponin I 0.015 0.025 0.022 B-Type 06599 H Natriuretic Peptide Creatine Kinase 207 H 195 Creatine Kinase 1.5 1.5 Index Creatinine 3.04 H 2.96 H Kinase MB (Mass) Magnesium Level 1.9 SUSNA FAULKNER MD Mar 29, 2018 08:34
[2018-03-29] MEDS: SACUBITRIL/VALSARTAN (24mg-26mg) TABLET PO SCH ×2 (08:56→20:12)
[2018-03-29] MEDS: CHOLECALCIFEROL 2,000 UNIT CAP PO SCH ×2 (08:57→20:11)
[2018-03-29] MEDS: TIOTROPIUM 18 MCG CAPSULE INHA DEV INH SCH (08:57)
[2018-03-29] MEDS: FERROUS GLUCONATE (EC) 325 MG TAB PO SCH ×2 (08:58→20:11)
[2018-03-29] MEDS ORDERED: POTASSIUM CHLORIDE (SR) 20 MEQ TAB PO SCH (09:00)
[2018-03-29] MEDS ORDERED: METOPROLOL (XL) 25 MG TAB PO SCH (09:00)
[2018-03-29] MEDS: SPIRONOLACTONE 25 MG TAB PO SCH (09:01)
[2018-03-29] MEDS ORDERED: ADENOSINE 3 MG/ML SYRINGE IV ONE ×2 (09:20→09:30)
[2018-03-29] MEDS: NYSTATIN 30 GM POWDER BTL TOP SCH ×2 (09:29→20:12)
[2018-03-29] MEDS: ENOXAPARIN 40 MG/0.4 ML SYG SC SCH (09:33)
[2018-03-29] MEDS ORDERED: ADENOSINE 6 MG INJ IV PRN (10:30)
[2018-03-29] MEDS ORDERED: HYDROmorphONE 2 MG/ML SYG IV PRN (11:30)
--- NOTE | 2018-03-29 11:53 | CONS ---
Date/Time of Note Date/Time of Note DATE: 03/29/18 TIME: 11:48 Assessment/Plan Assessment/Plan Chief Complaint/Hosp Course IMPRESSION: 1. Congestive heart failure exacerbation, systolic, acute on chronic. 2. Cardiomyopathy with severely depressed left ventricular ejection fraction with last being approximately 20%. 3. Hypertension. 4. Dyslipidemia. 5. History of substance abuse. 6. Chronic obstructive pulmonary disease. 7. Bilateral lower extremity amputation and presenting with right stump pain. 8. Questionable history of intracardiac thrombus not seen by most recent echocardiogram dated 01/06/2018, but with severely depressed ejection fraction at that time of 20%. 9. Tobacco intake. 10. SVT-regular recurrent to 160-180. Broke with PO BB. Also questionable WCT right before Recc: -Tele -serial ecg's -Continue entresto -Increase BB to improve HR/suppress SVT -dose IV digoxin -Continue aldactone/lasix and follow volume status -Continue bronchodilators/abx's and f/u cx data Consultation Date/Type/Reason Admit Date/Time Mar 29, 2018 at 07:48 Initial Consult Date 03/29/18 Type of Consult cardiology Reason for Consultation CHF Requesting Provider: SUSAN FAULKNER MD Exam/Review of Systems Vital Signs Vitals Vital Signs Date Temp Pulse Resp B/P (MAP) Pulse Ox O2 O2 Flow FiO2 Time Delivery Rate 03/29/18 98.1 102 16 111/72 97 11:09 (85) 03/29/18 21 08:02 03/28/18 Room Air 18:35 Intake and Output 03/28/18 03/28/18 03/29/18 1515:00 23:00 07:00 IntakeIntake Total 600 ml OutputOutput Total 1400 ml BalanceBalance -800 ml Exam Review of Systems: CONSTITUTIONAL: No fevers, chills. PULMONARY: No sob CARDIOVASCULAR: No chest pain/palpitations GASTROINTESTINAL: No nausea/vomiting. GENITOURINARY: No hematuria/dysuria. MUSCULOSKELETAL: No myagias/arthalgias. PSYCHIATRIC: The patient denies depression. NEUROLOGIC: No weakness Constitutional: alert Psych: no complaints Head: normocephalic ENMT: mucosa pink and moist Neck: supple, jvd (8 cm water) Respiratory: clear to auscultation Cardiovascular: regular rate and rhythm Gastrointestinal: soft, non-tender Musculoskeletal: muscle tone (normal) Extremities: edema (none) Neurological: other (Bilateral LE amputtaion) Medications Medications Current Medications Atorvastatin Calcium (Lipitor) 80 mg QHS PO Last administered on 03/28/18at 20:50; Admin Dose 80 MG; Start 03/28/18 at 21:00 Budesonide (Pulmicort (Neb)) 0.5 mg BID RESP THERAPY HHN Last administered on 03/28/18 19:32; Admin Dose 0.5 MG; Start 03/28/18 at 20:00 Ferrous Gluconate (Fergon) 325 mg BID PO Last administered on 03/29/18 08:58; Admin Dose 325 MG; Start 03/28/18 at 21:00 Albuterol/ Ipratropium (Duoneb) 3 ml Q6HWA RESP THERAPY HHN Last administered on 03/29/18 07:55; Admin Dose 3 ML; Start 03/28/18 at 20:00 Metoprolol Succinate (Toprol Xl) 12.5 mg DAILY PO Last administered on 03/29/18 at 08:56; Admin Dose 12.5 MG; Start 03/29/18 at 09:00 Montelukast Sodium (Singulair) 10 mg QHS PO Last administered on 03/28/18 20:49; Admin Dose 10 MG; Start 03/28/18 at 21:00 Pantoprazole (Protonix Tab) 40 mg DAILY@06 PO Last administered on 03/29/18at 05:45; Admin Dose 40 MG; Start 03/29/18 at 06:00 Spironolactone (Aldactone) 25 mg DAILY PO Last administered on 03/29/18at 09:01; Admin Dose 25 MG; Start 03/29/18 at 09:00 Tamsulosin HCl (Flomax) 0.4 mg HS PO Last administered on 03/28/18at 20:49; Admin Dose 0.4 MG; Start 03/28/18 at 21:00 Tiotropium [place] (Spiriva) 1 inh DAILY INH Last administered on 03/29/18 08:57; Admin Dose 1 INH; Start 03/29/18 at 09:00 Albuterol (Proventil 0.083% (Neb)) 2.5 mg Q2H RESP THERAPY PRN N SHORTNESS OF BREATH; Start 03/28/18 at 16:30 IV Flush (NS 3 ml) 3 ml PER PROTOCOL IV ; Start 03/28/18 at 16:30 Ondansetron HCl (Zofran Inj) 4 mg Q6H PRN IV NAUSEA AND/OR VOMITING; Start 03/28/18 at 16:30 Nitroglycerin (Nitroglycerin (Sl Tab) 0.4 Mg) 1 tab Q5M PRN SL CHEST PAIN; Start 03/28/18 at 16:30 Acetaminophen (Tylenol Tab) 650 mg Q6H PRN PO PAIN LEVEL 1-3 OR FEVER; Start 03/28/18 at 16:30 Docusate Sodium (Colace) 100 mg Q12H PRN PO CONSTIPATION; Start 03/28/18 at 16:30 Magnesium Hydroxide (Milk Of Mag) 30 ml DAILY PRN PO CONSTIPATION; Start 03/28/18 at 16:30 Enoxaparin Sodium (Lovenox) 40 mg DAILY SC Last administered on 03/29/18at 09:33; Admin Dose 40 MG; Start 03/29/18 at 09:00 Furosemide (Lasix) 40 mg BID DIURETICS IV Last administered on 03/29/18at 05:45; Admin Dose 40 MG; Start 03/28/18 at 18:00 Sacubitril/ Valsartan (Entresto 24 Mg-26 Mg) 1 tab BID PO Last administered on 03/29/18at 08:56; Admin Dose 1 TAB; Start 03/28/18 at 21:00 Nystatin (Nystatin Powder) 1 applic BID TOP Last administered on 03/29/18at 09:29; Admin Dose 1 APPLIC; Start 03/28/18 at 21:00 Cholecalciferol (Vitamin D) 2,000 unit BID PO Last administered on 03/29/18at 08:57; Admin Dose 2,000 UNIT; Start 03/28/18 at 21:00 Ceftriaxone Sodium 50 ml @ 100 mls/hr Q24H IVPB Last administered on 03/28/18at 20:49; Admin Dose 100 MLS/HR; Start 03/28/18 at 19:30 [facility] This patient rivera... PRN PRN XX soiled; Start 03/28/18 at 19:00 Influenza Virus Vaccine Quadrival (Fluzone) 0.5 ml ONCE ONCE IM* ; Start 03/30/18 at 10:00; Stop 03/30/18 at 10:01 Potassium Chloride (Klor-Con 20) 40 meq DAILY PO Last administered on 03/29/18at 06:42; Admin Dose 40 MEQ; Start 03/29/18 at 06:30 Adenosine (Adenosine) 6 mg ONCE PRN IV HR >180; Start 03/29/18 at 10:30; Stop 03/29/18 at 18:00 Oxycodone HCl (Oxycontin) 30 mg Q6 PO ; Start 03/29/18 at 12:00; Status UNV Hydromorphone HCl (Dilaudid) 2 mg Q6H PRN IV SEVERE PAIN LEVEL 7-10; Start 03/29/18 at 11:30 Senna/Docusate Sodium (Senokot-S) 2 tab DAILY PO ; Start 03/30/18 at 09:00 Results Result Diagram: 03/29/18 0452 03/29/18 0452 Results 24 hrs Laboratory Tests Test 03/28/18 14:09 03/28/18 20:20 03/29/18 00:22 03/29/18 04:52 White Blood 13.6 #H 11.1 H Count Red Blood Count 5.28 # 5.08 Hemoglobin 12.5 #L 12.1 L Hematocrit 41.1 #L 37.5 L Mean Corpuscular 77.8 L 73.8 L Volume Mean Corpuscular 23.7 L 23.8 L Hemoglobin Mean Corpuscular 30.4 L 32.3 Hemoglobin Brianna nt Red Cell 20.2 H 19.9 H Distribution Width Platelet Count 393 # 361 Mean Platelet 11.0 H 11.3 H Volume Immature 1.000 H 0.500 H Granulocytes % Neutrophils % 79.9 H 77.9 H Lymphocytes % 12.3 L 14.6 L Monocytes % 6.7 6.6 Eosinophils % 0.0 0.2 Basophils % 0.1 0.2 Nucleated Red 0.0 0.0 Blood Cells % Immature 0.130 H 0.060 H Granulocytes # Neutrophils # 10.9 H 8.6 H Lymphocytes # 1.7 1.6 Monocytes # 0.9 0.7 Eosinophils # 0.0 0.0 Basophils # 0.0 0.0 Nucleated Red 0.0 0.0 Blood Cells # Prothrombin Time 20.2 H Prothrombin Time 1.6 Ratio INR 1.69 International Normalized Ratio Activated 33.4 Partial Thrombop last Time Sodium Level 133 L 136 Potassium Level 4.0 3.2 L Chloride Level 90 L 94 L Carbon Dioxide 30 31 Level Anion Gap 13 11 Blood Urea 25 H 33 H Nitrogen Creatinine 0.95 1.19 Est Glomerular > 60 > 60 Filtrat Rate mL/min Glucose Level 113 153 Calcium Level 9.4 9.0 Troponin I 0.015 0.025 0.022 B-Type 73846 H Natriuretic Peptide Creatine Kinase 207 H 195 Creatine Kinase 1.5 1.5 Index Creatinine 3.04 H 2.96 H Kinase MB (Mass) Magnesium Level 1.9 VIVIAN PRINCE Mar 29, 2018 11:53
[2018-03-29] MEDS ORDERED: METOPROLOL (XL) 25 MG TAB PO ONE (12:00)
[2018-03-29] MEDS ORDERED: oxyCODONE (CR) 15 MG TAB [oxyCONTIN] PO SCH ×2 (12:00→18:00)
[2018-03-29] MEDS ORDERED: DIGOXIN 500 MCG INJ IV ONE (12:00)
[2018-03-29] MEDS ORDERED: VITAMIN A & D 5 GM OINT PACKET TOP ONE (17:12)
[2018-03-29] MEDS: oxyCODONE (CR) 10 MG TAB [oxyCONTIN] PO SCH ×2 (18:37→23:08)
[2018-03-29] MEDS: CEFTRIAXONE 1 GM/50 ML (PMX) 50 ML IVPB SCH (20:11)
[2018-03-29] MEDS: TAMSULOSIN (SR) 0.4 MG CAP PO SCH (20:11)
[2018-03-29] MEDS: ATORVASTATIN 80 MG TAB PO SCH (20:11)
[2018-03-29] MEDS: MONTELUKAST 10 MG TAB PO SCH (20:12)
[2018-03-29] MEDS: ASCORBIC ACID 500 MG TAB PO SCH (20:12)
[2018-03-29] MEDS: HYDROmorphONE 1 MG/ML SYG IV PRN (23:10)
[2018-03-30] VITALS (14 sets, daily range): BP systolic 108–136; BP diastolic 66–76; PULSE 61–206; RESP 18–20
[2018-03-30] MEDS: oxyCODONE (CR) 10 MG TAB [oxyCONTIN] PO SCH (06:00)
[2018-03-30] MEDS: HYDROmorphONE 1 MG/ML SYG IV PRN ×2 (06:28→14:19)
[2018-03-30] MEDS: PANTOPRAZOLE (EC) 40 MG TAB PO SCH (06:28)
[2018-03-30] MEDS: FUROSEMIDE 40 MG INJ IV SCH ×2 (06:28→17:39)
[2018-03-30] MEDS: ALBUTEROL/IPRATROPIUM (NEB) 3 ML AMP HHN SCH ×3 (08:00→19:47)
[2018-03-30] MEDS: BUDESONIDE (NEB) 0.5MG/2ML AMP HHN SCH ×2 (08:15→19:47)
[2018-03-30] MEDS ORDERED: POTASSIUM CHLORIDE (SR) 20 MEQ TAB PO STA (08:33)
--- NOTE | 2018-03-30 08:34 | PN ---
Date/Time of Note Date/Time of Note DATE: 03/30/18 TIME: 08:34 Assessment/Plan VTE Prophylaxis Risk score (from Nsg)>0 risk: 6 SCD applied (from Nsg): No SCD contraindicated: bilateral amputee Pharmacological prophylaxis: apixaban Lines/Catheters IV Catheter Type (from Nrsg): Saline Lock Urinary Cath still in place: No Assessment/Plan Assessment/Plan 1. Acute pain in right thigh - Pain management consultation placed and appreciate recommendations. Adjusted medications since patient was very groggy this am. Oxycodone increased to 30mg since low dose was not effective but will need to monitor for excess sedation - LE US negative for DVT. 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 Discussed with vascular who said it was chronic and will need to follow up with outpatient clinic at [facility]. Patient had a failed left groin graft. - PT/OT 2. Acute on chronic systolic heart failure - Cardiology consultation placed and appreciate recommendations. continue diuresing - Echo results noted from prior admission with EF 20% - BNP noted 3. Wounds on elbows and sacrum - wound consultation appreciated 4. CAD - continue all home medications - stable 5. b/l AKA secondary PVD - PT/OT consultation appreciated 6. Episode of sustained vtach- resolved - Cardiology increased BB for better HR control 7. Disposition - Continue monitoring on Telemetry - Once pain controlled and patient back to dry weight, will d/c home Subjective 24 Hr Interval Summary Free Text/Dictation Patient states he's still in pain. Hes drowsy this am but admit to not sleeping for 4 days prior to admission and usually takes a morning nap. Encouraged to try and avoid napping during the day so can sleep tonight. Shortness of breath is improving. Exam/Review of Systems Vital Signs Vitals Vital Signs Date Temp Pulse Resp B/P (MAP) Pulse Ox O2 O2 Flow FiO2 Time Delivery Rate 03/30/18 111 08:03 03/30/18 98.5 20 108/66 97 Room Air 07:32 (80) 03/29/18 21 13:34 Intake and Output 03/29/18 03/29/18 03/30/18 1515:00 23:00 07:00 IntakeIntake Total 1300 ml 1100 ml OutputOutput Total 2825 ml 2200 ml BalanceBalance -1525 ml -1100 ml Exam General: Patient is currently sitting in bed, no acute distress Neck: Supple Lungs: Diminished breath rounds bilaterally, nonlabored breathing. no wheezing Heart: Normal S1-S2, Regular rhythm, tachycardia. no murmurs appreciated Abdomen: Soft , nontender, nondistended , bowel sounds are present. No guarding no rebound tenderness Extremities: Bilateral AKA. nontender to palpation Skin: no new abrasions Medications Medications Current Medications Atorvastatin Calcium (Lipitor) 80 mg QHS PO Last administered on 03/29/18 20:11; Admin Dose 80 MG; Start 03/28/18 at 21:00 Budesonide (Pulmicort (Neb)) 0.5 mg BID RESP THERAPY HHN Last administered on 03/28/18 19:32; Admin Dose 0.5 MG; Start 03/28/18 at 20:00 Ferrous Gluconate (Fergon) 325 mg BID PO Last administered on 03/29/18 20:11; Admin Dose 325 MG; Start 03/28/18 at 21:00 Albuterol/ Ipratropium (Duoneb) 3 ml Q6HWA RESP THERAPY HHN Last administered on 03/29/18 13:29; Admin Dose 3 ML; Start 03/28/18 at 20:00 Montelukast Sodium (Singulair) 10 mg QHS PO Last administered on 03/29/18 20:12; Admin Dose 10 MG; Start 03/28/18 at 21:00 Pantoprazole (Protonix Tab) 40 mg DAILY@06 PO Last administered on 03/30/18 06:28; Admin Dose 40 MG; Start 03/29/18 at 06:00 Spironolactone (Aldactone) 25 mg DAILY PO Last administered on 03/29/18 09:01; Admin Dose 25 MG; Start 03/29/18 at 09:00 Tamsulosin HCl (Flomax) 0.4 mg HS PO Last administered on 03/29/18 20:11; Admin Dose 0.4 MG; Start 03/28/18 at 21:00 Tiotropium [place] (Spiriva) 1 inh DAILY INH Last administered on 03/29/18 08:57; Admin Dose 1 INH; Start 03/29/18 at 09:00 Albuterol (Proventil 0.083% (Neb)) 2.5 mg Q2H RESP THERAPY PRN HHN SHORTNESS OF BREATH; Start 03/28/18 at 16:30 IV Flush (NS 3 ml) 3 ml PER PROTOCOL IV ; Start 03/28/18 at 16:30 Ondansetron HCl (Zofran Inj) 4 mg Q6H PRN IV NAUSEA AND/OR VOMITING; Start 03/28/18 at 16:30 Nitroglycerin (Nitroglycerin (Sl Tab) 0.4 Mg) 1 tab Q5M PRN SL CHEST PAIN; Start 03/28/18 at 16:30 Acetaminophen (Tylenol Tab) 650 mg Q6H PRN PO PAIN LEVEL 1-3 OR FEVER; Start 03/28/18 at 16:30 Docusate Sodium (Colace) 100 mg Q12H PRN PO CONSTIPATION; Start 03/28/18 at 16:30 Magnesium Hydroxide (Milk Of Mag) 30 ml DAILY PRN PO CONSTIPATION; Start 03/28/18 at 16:30 Enoxaparin Sodium (Lovenox) 40 mg DAILY SC Last administered on 03/29/18at 09:33; Admin Dose 40 MG; Start 03/29/18 at 09:00 Furosemide (Lasix) 40 mg BID DIURETICS IV Last administered on 03/30/18at 06:28; Admin Dose 40 MG; Start 03/28/18 at 18:00 Sacubitril/ Valsartan (Entresto 24 Mg-26 Mg) 1 tab BID PO Last administered on 03/29/18at 20:12; Admin Dose 1 TAB; Start 03/28/18 at 21:00 Nystatin (Nystatin Powder) 1 applic BID TOP Last administered on 03/29/18at 20:12; Admin Dose 1 APPLIC; Start 03/28/18 at 21:00 Cholecalciferol (Vitamin D) 2,000 unit BID PO Last administered on 03/29/18at 20:11; Admin Dose 2,000 UNIT; Start 03/28/18 at 21:00 Ceftriaxone Sodium 50 ml @ 100 mls/hr Q24H IVPB Last administered on 03/29/18at 20:11; Admin Dose 100 MLS/HR; Start 03/28/18 at 19:30 Miscellaneous Information (Pending [facility] Order For Wound Care) This patient rivera... PRN PRN XX soiled; Start 03/28/18 at 19:00 Influenza Virus Vaccine Quadrival (Fluzone) 0.5 ml ONCE ONCE IM* ; Start 03/30/18 at 10:00; Stop 03/30/18 at 10:01 Potassium Chloride (Klor-Con 20) 40 meq DAILY PO Last administered on 03/29/18at 06:42; Admin Dose 40 MEQ; Start 03/29/18 at 06:30 Senna/Docusate Sodium (Senokot-S) 2 tab DAILY PO ; Start 03/30/18 at 09:00 Metoprolol Succinate (Toprol Xl) 25 mg DAILY PO ; Start 03/30/18 at 09:00 Hydromorphone HCl (Dilaudid) 1 mg Q6H PRN IV SEVERE PAIN LEVEL 7-10 Last administered on 03/30/18at 06:28; Admin Dose 1 MG; Start 03/29/18 at 17:30 Oxycodone HCl (Oxycontin) 10 mg Q6 PO Last administered on 03/29/18at 23:08; Admin Dose 10 MG; Start 03/29/18 at 18:00 Ascorbic Acid (Vitamin C) 500 mg BID PO ; Start 03/29/18 at 21:00; Stop 04/12/18 at 20:59 Zinc Sulfate (Zinc Sulfate) 220 mg DAILY PO ; Start 03/30/18 at 09:00; Stop 04/13/18 at 08:59 Multivitamins Therapeutic (Theragran) 1 tab DAILY PO ; Start 03/30/18 at 09:00 Results Result Diagram: 03/30/18 0504 03/30/18 0504 Results 24 hrs Laboratory Tests Test 03/30/18 05:04 White Blood Count 13.8 #H Red Blood Count 5.19 Hemoglobin 12.2 L Hematocrit 39.2 L Mean Corpuscular Volume 75.5 L Mean Corpuscular Hemoglobin 23.5 L Mean Corpuscular Hemoglobin Concent 31.1 L Red Cell Distribution Width 20.4 H Platelet Count 329 Mean Platelet Volume 11.6 H Immature Granulocytes % 0.600 H Neutrophils % 84.5 H Lymphocytes % 7.9 L Monocytes % 6.8 Eosinophils % 0.1 Basophils % 0.1 Nucleated Red Blood Cells % 0.0 Immature Granulocytes # 0.080 H Neutrophils # 11.7 H Lymphocytes # 1.1 Monocytes # 0.9 Eosinophils # 0.0 Basophils # 0.0 Nucleated Red Blood Cells # 0.0 Sodium Level 137 Potassium Level 3.6 Chloride Level 96 L Carbon Dioxide Level 33 H Anion Gap 8 Blood Urea Nitrogen 21 #H Creatinine 0.89 Glucose Level 119 Calcium Level 8.7 Phosphorus Level 2.5 Magnesium Level 1.9 Albumin 3.2 L SUSAN FAULKNER MD Mar 30, 2018 08:34
[2018-03-30] MEDS: TIOTROPIUM 18 MCG CAPSULE INHA DEV INH SCH (08:39)
[2018-03-30] MEDS: SPIRONOLACTONE 25 MG TAB PO SCH (08:39)
[2018-03-30] MEDS: SACUBITRIL/VALSARTAN (24mg-26mg) TABLET PO SCH ×2 (08:40→20:10)
[2018-03-30] MEDS: FERROUS GLUCONATE (EC) 325 MG TAB PO SCH ×2 (08:40→20:13)
[2018-03-30] MEDS: SENNA/DOCUSATE NA (8.6MG/50MG) TAB PO SCH (08:42)
[2018-03-30] MEDS: ASCORBIC ACID 500 MG TAB PO SCH ×2 (08:42→20:13)
[2018-03-30] MEDS: ZINC SULFATE 220 MG CAP PO SCH (08:42)
[2018-03-30] MEDS: BALSAM PERU/CASTOR OIL 60 GM TUBE TOP SCH (08:43)
[2018-03-30] MEDS: NYSTATIN 30 GM POWDER BTL TOP SCH ×2 (08:43→20:15)
[2018-03-30] MEDS: MULTIVITAMINS THERAPEUTIC TAB PO SCH (08:49)
[2018-03-30] MEDS: CHOLECALCIFEROL 2,000 UNIT CAP PO SCH ×2 (08:49→20:12)
[2018-03-30] MEDS: POTASSIUM CHLORIDE (SR) 20 MEQ TAB PO SCH (08:49)
[2018-03-30] MEDS: ENOXAPARIN 40 MG/0.4 ML SYG SC SCH (08:53)
[2018-03-30] MEDS ORDERED: METOPROLOL (XL) 25 MG TAB PO SCH (09:00)
--- NOTE | 2018-03-30 09:30 | CONS ---
Date/Time of Note Date/Time of Note DATE: 03/30/18 TIME: 09:28 Assessment/Plan Assessment/Plan Additional Assessment/Plan Bilateral lower extremity lancinating neuropathic pain We will begin patient on gabapentin, will try and withhold the use of opioids but patient has been treated with OxyContin as an outpatient will have to re- start his pain control medications as prior written by his primary care physician. Patient is to be followed by a pain management physician at the time of discharge. Acute chronic systolic heart failure Ejection fraction is 20% being followed by cardiology Sacral wounds Wound management following We will follow patient during his hospitalization we will add Neurontin onto his current regimen. At this time is no indication to add on a second neuropathic antiseizure medication for pain management. Consultation Date/Type/Reason Admit Date/Time Mar 29, 2018 at 07:48 Hx of Present Illness This is a very pleasant 62-year-old gentleman who looks older than his stated age. Who has severe peripheral vascular disease. Status post bilateral AKA. Other comorbid medical problems including history of coronary heart disease congestive heart failure I am asked to see for pain management consultation. Reason is a patient ran out of his pain control medications for which she was taking just OxyContin 30 mg every 6 hours and pain was controlled. His primary care physician refused to refill his medications today and he needs to be seen by pain management physician. Patient did not have an opportunity to schedule an appointment and presented to emergency room in pain. He admits as an outpatient he has been drinking using cocaine smoking marijuana to try and alleviate his discomfort in the interim. Reviewing medical records he has 2 sacral decubiti in addition also patient states that he has discontinued taking his Lasix prior to hospitalization. Patient's pain is primarily in his bilateral lower extremities radicular type pains lancinating rated 7/10 alleviated with his outpatient medication. Denies nausea vomiting itching globally disorientation constipation. Patient's home situation is such that he lives by himself he is able to do all of his activities of daily living if his pain is controlled. Other comorbid medical problems include history of chronic congestive heart failure, sacral decubiti, coronary heart disease Constitutional: No no complaints, No improved, No chills, No diaphoresis, No disoriented, No febrile, No poor po, No requiring IVF, No requiring O2, No other Eyes: No no complaints, No pain, No discharge, No redness, No visual change, No other ENT: No no complaints, No bleeding, No pain, No congestion, No discharge, No dysphagia, No sore throat, No other Respiratory: no complaints; No pain, No cough, No pleuritic pain, No shortness of breath, No sputum, No wheezing, No other Cardiovascular: no complaints; No chest pain, No edema, No lightheadedness, No orthopenea, No palpitations, No paroxysmal nocturnal dyspnea, No other Gastrointestinal: no complaints; No pain, No blood, No constipation, No decreased appetite, No diarrhea, No flatus, No nausea, No passing stool, No vomiting, No other Genitourinary: no complaints; No bleeding, No dysuria, No discharge, No flank pain, No hematuria, No other Musculoskeletal: other (As per history of present illness) Skin: other (As per history of present illness bilateral sacral decubiti) Neurologic: no complaints; No confusion, No dizziness, No focal-weakness, No headache, No syncope, No seizure, No other Psychological: no complaints, nl mood/affect; No anxiety, No confusion, No depression, No suicidal, No other Past Medical History Medical History: congestive heart failure, coronary artery disease, deep vein thrombosis, other (PVD s/p b/l AKA, COPD) Past Surgical History Past Surgical Hx: no surgical history (Bilateral AKA amputation), other (b/l AKA, right graft) Family History Significant Family History: heart disease, COPD, hypertension Social History Alcohol Use: heavy Smoking Status: Current every day smoker Drug Use: cocaine, marijuana Exam/Review of Systems Vital Signs Vitals Vital Signs Date Temp Pulse Resp B/P (MAP) Pulse Ox O2 O2 Flow FiO2 Time Delivery Rate 03/30/18 111 08:03 03/30/18 98.5 20 108/66 97 Room Air 07:32 (80) 03/29/18 21 13:34 Intake and Output 03/29/18 03/29/18 03/30/18 1515:00 23:00 07:00 IntakeIntake Total 1300 ml 1100 ml OutputOutput Total 2825 ml 2200 ml BalanceBalance -1525 ml -1100 ml Medications Medications Current Medications Atorvastatin Calcium (Lipitor) 80 mg QHS PO Last administered on 03/29/18at 20:11; Admin Dose 80 MG; Start 03/28/18 at 21:00 Budesonide (Pulmicort (Neb)) 0.5 mg BID RESP THERAPY HHN Last administered on 03/28/18at 19:32; Admin Dose 0.5 MG; Start 03/28/18 at 20:00 Ferrous Gluconate (Fergon) 325 mg BID PO Last administered on 03/30/18at 08:40; Admin Dose 325 MG; Start 03/28/18 at 21:00 Albuterol/ Ipratropium (Duoneb) 3 ml Q6HWA RESP THERAPY HHN Last administered on 03/29/18 13:29; Admin Dose 3 ML; Start 03/28/18 at 20:00 Montelukast Sodium (Singulair) 10 mg QHS PO Last administered on 03/29/18 20:12; Admin Dose 10 MG; Start 03/28/18 at 21:00 Pantoprazole (Protonix Tab) 40 mg DAILY@06 PO Last administered on 03/30/18 06:28; Admin Dose 40 MG; Start 03/29/18 at 06:00 Spironolactone (Aldactone) 25 mg DAILY PO Last administered on 03/30/18 08:39; Admin Dose 25 MG; Start 03/29/18 at 09:00 Tamsulosin HCl (Flomax) 0.4 mg HS PO Last administered on 03/29/18at 20:11; Admin Dose 0.4 MG; Start 03/28/18 at 21:00 Tiotropium [place] (Spiriva) 1 inh DAILY INH Last administered on 03/30/18at 08:39; Admin Dose 1 INH; Start 03/29/18 at 09:00 Albuterol (Proventil 0.083% (Neb)) 2.5 mg Q2H RESP THERAPY PRN HHN SHORTNESS OF BREATH; Start 03/28/18 at 16:30 IV Flush (NS 3 ml) 3 ml PER PROTOCOL IV ; Start 03/28/18 at 16:30 Ondansetron HCl (Zofran Inj) 4 mg Q6H PRN IV NAUSEA AND/OR VOMITING; Start 03/28/18 at 16:30 Nitroglycerin (Nitroglycerin (Sl Tab) 0.4 Mg) 1 tab Q5M PRN SL CHEST PAIN; Start 03/28/18 at 16:30 Acetaminophen (Tylenol Tab) 650 mg Q6H PRN PO PAIN LEVEL 1-3 OR FEVER; Start 03/28/18 at 16:30 Docusate Sodium (Colace) 100 mg Q12H PRN PO CONSTIPATION; Start 03/28/18 at 16:30 Magnesium Hydroxide (Milk Of Mag) 30 ml DAILY PRN PO CONSTIPATION; Start 03/28/18 at 16:30 Enoxaparin Sodium (Lovenox) 40 mg DAILY SC Last administered on 03/30/18 08:53; Admin Dose 40 MG; Start 03/29/18 at 09:00 Furosemide (Lasix) 40 mg BID DIURETICS IV Last administered on 03/30/18 06:28; Admin Dose 40 MG; Start 03/28/18 at 18:00 Sacubitril/ Valsartan (Entresto 24 Mg-26 Mg) 1 tab BID PO Last administered on 03/30/18 08:40; Admin Dose 1 TAB; Start 03/28/18 at 21:00 Nystatin (Nystatin Powder) 1 applic BID TOP Last administered on 03/30/18 08:43; Admin Dose 1 APPLIC; Start 03/28/18 at 21:00 Cholecalciferol (Vitamin D) 2,000 unit BID PO Last administered on 03/30/18 08:49; Admin Dose 2,000 UNIT; Start 03/28/18 at 21:00 Ceftriaxone Sodium 50 ml @ 100 mls/hr Q24H IVPB Last administered on 03/29/18at 20:11; Admin Dose 100 MLS/HR; Start 03/28/18 at 19:30 Miscellaneous Information (Pending [facility] Order For Wound Care) This patient rivera... PRN PRN XX soiled; Start 03/28/18 at 19:00 Influenza Virus Vaccine Quadrival (Fluzone) 0.5 ml ONCE ONCE IM* ; Start 03/30/18 at 10:00; Stop 03/30/18 at 10:01 Potassium Chloride (Klor-Con 20) 40 meq DAILY PO Last administered on 08:49; Admin Dose 40 MEQ; Start 03/29/18 at 06:30 Senna/Docusate Sodium (Senokot-S) 2 tab DAILY PO Last administered on 03/30/18 08:42; Admin Dose 2 TAB; Start 03/30/18 at 09:00 Metoprolol Succinate (Toprol Xl) 25 mg DAILY PO Last administered on 03/30/18at 08:42; Admin Dose 25 MG; Start 03/30/18 at 09:00 Hydromorphone HCl (Dilaudid) 1 mg Q6H PRN IV SEVERE PAIN LEVEL 7-10 Last admi nistered on 03/30/18at 06:28; Admin Dose 1 MG; Start 03/29/18 at 17:30 Ascorbic Acid (Vitamin C) 500 mg BID PO Last administered on 03/30/18at 08:42; Admin Dose 500 MG; Start 03/29/18 at 21:00; Stop 04/12/18 at 20:59 Zinc Sulfate (Zinc Sulfate) 220 mg DAILY PO Last administered on 03/30/18at 08 :42; Admin Dose 220 MG; Start 03/30/18 at 09:00; Stop 04/13/18 at 08:59 Multivitamins Therapeutic (Theragran) 1 tab DAILY PO Last administered on 03/30/18at 08:49; Admin Dose 1 TAB; Start 03/30/18 at 09:00 Oxycodone HCl (Oxycontin) 20 mg Q6 PO ; Start 03/30/18 at 12:00 Results Result Diagram: 03/30/18 0504 03/30/18 0504 Results 24 hrs Laboratory Tests Test 03/30/18 05:00 03/30/18 05:04 Iron Level 39 Total Iron Binding Capacity 336 Percent Iron Saturation 12 L White Blood Count 13.8 #H Red Blood Count 5.19 Hemoglobin 12.2 L Hematocrit 39.2 L Mean Corpuscular Volume 75.5 L Mean Corpuscular Hemoglobin 23.5 L Mean Corpuscular Hemoglobin Concent 31.1 L Red Cell Distribution Width 20.4 H Platelet Count 329 Mean Platelet Volume 11.6 H Immature Granulocytes % 0.600 H Neutrophils % 84.5 H Lymphocytes % 7.9 L Monocytes % 6.8 Eosinophils % 0.1 Basophils % 0.1 Nucleated Red Blood Cells % 0.0 Immature Granulocytes # 0.080 H Neutrophils # 11.7 H Lymphocytes # 1.1 Monocytes # 0.9 Eosinophils # 0.0 Basophils # 0.0 Nucleated Red Blood Cells # 0.0 Sodium Level 137 Potassium Level 3.6 Chloride Level 96 L Carbon Dioxide Level 33 H Anion Gap 8 Blood Urea Nitrogen 21 #H Creatinine 0.89 Glucose Level 119 Calcium Level 8.7 Phosphorus Level 2.5 Magnesium Level 1.9 Albumin 3.2 L LENIN CADENA Mar 30, 2018 09:30
--- NOTE | 2018-03-30 11:41 | CONS ---
Date/Time of Note Date/Time of Note DATE: 03/30/18 TIME: 11:39 Assessment/Plan Assessment/Plan Chief Complaint/Hosp Course IMPRESSION: 1. Congestive heart failure exacerbation, systolic, acute on chronic. 2. Cardiomyopathy with severely depressed left ventricular ejection fraction with last being approximately 20%. 3. Hypertension. 4. Dyslipidemia. 5. History of substance abuse. 6. Chronic obstructive pulmonary disease. 7. Bilateral lower extremity amputation and presenting with right stump pain. 8. Questionable history of intracardiac thrombus not seen by most recent echocardiogram dated 01/06/2018, but with severely depressed ejection fraction at that time of 20%. 9. Tobacco intake. 10. SVT-regular recurrent to 160-180. Broke with PO BB. Also questionable WCT right before Recc: -Tele -serial ecg's -Continue entresto -Increase BB further to improve HR/suppress SVT -additional dose IVP digoxin to aide in contracitility and improve HR -Continue aldactone/lasix and follow volume status -Continue bronchodilators/abx's and f/u cx data Consultation Date/Type/Reason Admit Date/Time Mar 29, 2018 at 07:48 Initial Consult Date 03/29/18 Type of Consult cardiology Reason for Consultation CHF Requesting Provider: SUSAN FAULKNER MD Exam/Review of Systems Vital Signs Vitals Vital Signs Date Temp Pulse Resp B/P (MAP) Pulse Ox O2 O2 Flow FiO2 Time Delivery Rate 03/30/18 97.6 105 20 117/76 97 Room Air 11:20 (90) 03/29/18 21 13:34 Intake and Output 03/29/18 03/29/18 03/30/18 1515:00 23:00 07:00 IntakeIntake Total 1300 ml 1100 ml OutputOutput Total 2825 ml 2200 ml BalanceBalance -1525 ml -1100 ml Exam Review of Systems: CONSTITUTIONAL: No fevers, chills. PULMONARY: No sob CARDIOVASCULAR: No chest pain/palpitations GASTROINTESTINAL: No nausea/vomiting. GENITOURINARY: No hematuria/dysuria. MUSCULOSKELETAL: mild pain in leg PSYCHIATRIC: The patient denies depression. NEUROLOGIC: No weakness Constitutional: alert, oriented Psych: no complaints Head: normocephalic ENMT: mucosa pink and moist Neck: supple, jvd (9 cm water) Respiratory: diminished breath sounds (at bases/B) Cardiovascular: regular rate and rhythm Gastrointestinal: soft, non-tender Musculoskeletal: muscle tone (normal) Extremities: other (bilateral LE amputation) Neurological: other (No focal deficits) Medications Medications Current Medications Atorvastatin Calcium (Lipitor) 80 mg QHS PO Last administered on 03/29/18 20:11; Admin Dose 80 MG; Start 03/28/18 at 21:00 Budesonide (Pulmicort (Neb)) 0.5 mg BID RESP THERAPY HHN Last administered on 03/28/18 19:32; Admin Dose 0.5 MG; Start 03/28/18 at 20:00 Ferrous Gluconate (Fergon) 325 mg BID PO Last administered on 03/30/18 08:40; Admin Dose 325 MG; Start 03/28/18 at 21:00 Albuterol/ Ipratropium (Duoneb) 3 ml Q6HWA RESP THERAPY HHN Last administered on 03/29/18 13:29; Admin Dose 3 ML; Start 03/28/18 at 20:00 Montelukast Sodium (Singulair) 10 mg QHS PO Last administered on 03/29/18 20:12; Admin Dose 10 MG; Start 03/28/18 at 21:00 Pantoprazole (Protonix Tab) 40 mg DAILY@06 PO Last administered on 03/30/18 06:28; Admin Dose 40 MG; Start 03/29/18 at 06:00 Spironolactone (Aldactone) 25 mg DAILY PO Last administered on 03/30/18 08:39; Admin Dose 25 MG; Start 03/29/18 at 09:00 Tamsulosin HCl (Flomax) 0.4 mg HS PO Last administered on 03/29/18at 20:11; Admin Dose 0.4 MG; Start 03/28/18 at 21:00 Tiotropium [place] (Spiriva) 1 inh DAILY INH Last administered on 03/30/18 08:39; Admin Dose 1 INH; Start 03/29/18 at 09:00 Albuterol (Proventil 0.083% (Neb)) 2.5 mg Q2H RESP THERAPY PRN HHN SHORTNESS OF BREATH; Start 03/28/18 at 16:30 IV Flush (NS 3 ml) 3 ml PER PROTOCOL IV ; Start 03/28/18 at 16:30 Ondansetron HCl (Zofran Inj) 4 mg Q6H PRN IV NAUSEA AND/OR VOMITING; Start 03/28/18 at 16:30 Nitroglycerin (Nitroglycerin (Sl Tab) 0.4 Mg) 1 tab Q5M PRN SL CHEST PAIN; Start 03/28/18 at 16:30 Acetaminophen (Tylenol Tab) 650 mg Q6H PRN PO PAIN LEVEL 1-3 OR FEVER; Start 03/28/18 at 16:30 Docusate Sodium (Colace) 100 mg Q12H PRN PO CONSTIPATION; Start 03/28/18 at 16:30 Magnesium Hydroxide (Milk Of Mag) 30 ml DAILY PRN PO CONSTIPATION; Start 03/28/18 at 16:30 Enoxaparin Sodium (Lovenox) 40 mg DAILY SC Last administered on 03/30/18 08:53; Admin Dose 40 MG; Start 03/29/18 at 09:00 Furosemide (Lasix) 40 mg BID DIURETICS IV Last administered on 03/30/18 06:28; Admin Dose 40 MG; Start 03/28/18 at 18:00 Sacubitril/ Valsartan (Entresto 24 Mg-26 Mg) 1 tab BID PO Last administered on 03/30/18 08:40; Admin Dose 1 TAB; Start 03/28/18 at 21:00 Nystatin (Nystatin Powder) 1 applic BID TOP Last administered on 03/30/18at 08:43; Admin Dose 1 APPLIC; Start 03/28/18 at 21:00 Cholecalciferol (Vitamin D) 2,000 unit BID PO Last administered on 03/30/18 08:49; Admin Dose 2,000 UNIT; Start 03/28/18 at 21:00 Ceftriaxone Sodium 50 ml @ 100 mls/hr Q24H IVPB Last administered on 03/29/18at 20:11; Admin Dose 100 MLS/HR; Start 03/28/18 at 19:30 Miscellaneous Information (Pending [facility] Order For Wound Care) This patient rivera... PRN PRN XX soiled; Start 03/28/18 at 19:00 Potassium Chloride (Klor-Con 20) 40 meq DAILY PO Last administered on 03/30/18 08:49; Admin Dose 40 MEQ; Start 03/29/18 at 06:30 Senna/Docusate Sodium (Senokot-S) 2 tab DAILY PO Last administered on 03/30/18at 08:42; Admin Dose 2 TAB; Start 03/30/18 at 09:00 Metoprolol Succinate (Toprol Xl) 25 mg DAILY PO Last administered on 03/30/18at 08:42; Admin Dose 25 MG; Start 03/30/18 at 09:00 Hydromorphone HCl (Dilaudid) 1 mg Q6H PRN IV SEVERE PAIN LEVEL 7-10 Last administered on 03/30/18at 06:28; Admin Dose 1 MG; Start 03/29/18 at 17:30 Ascorbic Acid (Vitamin C) 500 mg BID PO Last administered on 03/30/18at 08:42; Admin Dose 500 MG; Start 03/29/18 at 21:00; Stop 04/12/18 at 20:59 Zinc Sulfate (Zinc Sulfate) 220 mg DAILY PO Last administered on 03/30/18at 08:42; Admin Dose 220 MG; Start 03/30/18 at 09:00; Stop 04/13/18 at 08:59 Multivitamins Therapeutic (Theragran) 1 tab DAILY PO Last administered on 03/30/18at 08:49; Admin Dose 1 TAB; Start 03/30/18 at 09:00 Gabapentin (Neurontin) 200 mg TID PO ; Start 03/30/18 at 13:00 Oxycodone HCl (Oxycontin) 30 mg QID PO ; Start 03/30/18 at 13:00 Results Result Diagram: 03/30/18 0504 03/30/18 0504 Results 24 hrs Laboratory Tests Test 03/30/18 05:00 03/30/18 05:04 Iron Level 39 Total Iron Binding Capacity 336 Percent Iron Saturation 12 L White Blood Count 13.8 #H Red Blood Count 5.19 Hemoglobin 12.2 L Hematocrit 39.2 L Mean Corpuscular Volume 75.5 L Mean Corpuscular Hemoglobin 23.5 L Mean Corpuscular Hemoglobin Concent 31.1 L Red Cell Distribution Width 20.4 H Platelet Count 329 Mean Platelet Volume 11.6 H Immature Granulocytes % 0.600 H Neutrophils % 84.5 H Lymphocytes % 7.9 L Monocytes % 6.8 Eosinophils % 0.1 Basophils % 0.1 Nucleated Red Blood Cells % 0.0 Immature Granulocytes # 0.080 H Neutrophils # 11.7 H Lymphocytes # 1.1 Monocytes # 0.9 Eosinophils # 0.0 Basophils # 0.0 Nucleated Red Blood Cells # 0.0 Sodium Level 137 Potassium Level 3.6 Chloride Level 96 L Carbon Dioxide Level 33 H Anion Gap 8 Blood Urea Nitrogen 21 #H Creatinine 0.89 Glucose Level 119 Calcium Level 8.7 Phosphorus Level 2.5 Magnesium Level 1.9 Albumin 3.2 L VIVIAN PRINCE Mar 30, 2018 11:41
[2018-03-30] MEDS ORDERED: oxyCODONE (CR) 10 MG TAB [oxyCONTIN] PO SCH (12:00)
[2018-03-30] MEDS ORDERED: DIGOXIN 500 MCG INJ IV ONE (12:00)
[2018-03-30] MEDS: GABAPENTIN 100 MG CAP PO SCH ×2 (13:05→20:11)
[2018-03-30] MEDS: oxyCODONE (CR) 15 MG TAB [oxyCONTIN] PO SCH ×3 (13:05→20:10)
[2018-03-30] MEDS: CEFTRIAXONE 1 GM/50 ML (PMX) 50 ML IVPB SCH (18:35)
--- NOTE | 2018-03-30 19:54 | RADRPT ---
Vent Rate: 0 bpm RR Interval: 0 msec KS Interval: 0 msec QRS Duration: 0 msec QT Interval: 0 msec QTC Interval: 0 msec P-R-T [place]: 0 - 0 - 0 degrees Electronically Signed By: Andrea Thurman [id number]
[2018-03-30] MEDS: ATORVASTATIN 80 MG TAB PO SCH (20:11)
[2018-03-30] MEDS: TAMSULOSIN (SR) 0.4 MG CAP PO SCH (20:12)
[2018-03-30] MEDS: DOCUSATE SODIUM 100 MG CAP PO PRN (20:12)
[2018-03-30] MEDS: MONTELUKAST 10 MG TAB PO SCH (20:13)
[2018-03-30] MEDS: METOPROLOL (XL) 25 MG TAB PO SCH (20:14)
[2018-03-31] VITALS (13 sets, daily range): BP systolic 107–135; BP diastolic 64–88; PULSE 90–200; RESP 18–20
[2018-03-31] MEDS: FUROSEMIDE 40 MG INJ IV SCH ×2 (05:00→18:33)
[2018-03-31] MEDS: PANTOPRAZOLE (EC) 40 MG TAB PO SCH (05:00)
[2018-03-31] MEDS: BUDESONIDE (NEB) 0.5MG/2ML AMP HHN SCH ×2 (07:56→20:00)
[2018-03-31] MEDS: ALBUTEROL/IPRATROPIUM (NEB) 3 ML AMP HHN SCH ×3 (07:56→20:00)
--- NOTE | 2018-03-31 08:49 | PN ---
Date/Time of Note Date/Time of Note DATE: 03/31/18 TIME: 08:49 Assessment/Plan VTE Prophylaxis Risk score (from Nsg)>0 risk: 7 SCD applied (from Ns): No SCD contraindicated: bilateral amputee Pharmacological prophylaxis: apixaban Lines/Catheters IV Catheter Type (from Nrsg): Saline Lock Urinary Cath still in place: No Assessment/Plan Assessment/Plan 1. Acute pain in right thigh s/p b/l amputations - Pain management on board and appreciate recommendations. Discussed lowering Oxy dosage given patient very lethargic after given medication. - LE US negative for DVT. 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 Discussed with vascular who said it was chronic and will need to follow up with outpatient clinic at [facility]. Patient had a failed left groin graft. - PT/OT on board 2. Acute on chronic systolic heart failure- improving - Diuresing well and shortness of breath has resolved - Cardiology consultation placed and appreciate recommendations. - Echo results noted from prior admission with EF 20% - BNP noted 3. Wounds on elbows and sacrum - wound consultation appreciated 4. CAD - continue all home medications - stable 5. b/l AKA secondary PVD - PT/OT consultation appreciated 6. Episode of sustained vtach- resolved - Cardiology increased BB for better HR control 7. Disposition - Still with tachycardia and will need better rate control and pain control prior to discharge home. Patient refusing SNF placement and has family check on him but lives alone Subjective 24 Hr Interval Summary Free Text/Dictation Patient sleepy this am after given pain medication but denies any issues. Still with tachycardia but no noted episodes of SVT. Exam/Review of Systems Vital Signs Vitals Vital Signs Date Temp Pulse Resp B/P (MAP) Pulse Ox O2 O2 Flow FiO2 Time Delivery Rate 03/31/18 117 08:01 03/31/18 20 96 21 07:57 03/31/18 98.0 135/73 07:29 (93) 03/30/18 Room Air 15:32 Intake and Output 03/30/18 03/30/18 03/31/18 1515:00 23:00 07:00 IntakeIntake Total 1010 ml OutputOutput Total 2250 ml BalanceBalance -1240 ml Exam General: Patient is currently sitting in bed, no acute distress Neck: Supple Lungs: Diminished breath rounds bilaterally, nonlabored breathing. no wheezing Heart: Normal S1-S2, Regular rhythm, tachycardia. no murmurs appreciated Abdomen: Soft , nontender, nondistended , bowel sounds are present. No guarding no rebound tenderness Extremities: Bilateral AKA. nontender to palpation Skin: no new abrasions, discoloration noted on right stump. no erythema or rashes appreciated. Medications Medications Current Medications Atorvastatin Calcium (Lipitor) 80 mg QHS PO Last administered on 03/30/18 20:11; Admin Dose 80 MG; Start 03/28/18 at 21:00 Budesonide (Pulmicort (Neb)) 0.5 mg BID RESP THERAPY HHN Last administered on 03/31/18 07:56; Admin Dose 0.5 MG; Start 03/28/18 at 20:00 Ferrous Gluconate (Fergon) 325 mg BID PO Last administered on 03/30/18 20:13; Admin Dose 325 MG; Start 03/28/18 at 21:00 Albuterol/ Ipratropium (Duoneb) 3 ml Q6HWA RESP THERAPY HHN Last administered on 03/31/18 07:56; Admin Dose 3 ML; Start 03/28/18 at 20:00 Montelukast Sodium (Singulair) 10 mg QHS PO Last administered on 03/30/18 20:13; Admin Dose 10 MG; Start 03/28/18 at 21:00 Pantoprazole (Protonix Tab) 40 mg DAILY@06 PO Last administered on 03/31/18 05:00; Admin Dose 40 MG; Start 03/29/18 at 06:00 Spironolactone (Aldactone) 25 mg DAILY PO Last administered on 03/30/18 08:39; Admin Dose 25 MG; Start 03/29/18 at 09:00 Tamsulosin HCl (Flomax) 0.4 mg HS PO Last administered on 03/30/18 20:12; Admin Dose 0.4 MG; Start 03/28/18 at 21:00 Tiotropium [place] (Spiriva) 1 inh DAILY INH Last administered on 03/30/18 08:39; Admin Dose 1 INH; Start 03/29/18 at 09:00 Albuterol (Proventil 0.083% (Neb)) 2.5 mg Q2H RESP THERAPY PRN HHN SHORTNESS OF BREATH; Start 03/28/18 at 16:30 IV Flush (NS 3 ml) 3 ml PER PROTOCOL IV ; Start 03/28/18 at 16:30 Ondansetron HCl (Zofran Inj) 4 mg Q6H PRN IV NAUSEA AND/OR VOMITING; Start 03/28/18 at 16:30 Nitroglycerin (Nitroglycerin (Sl Tab) 0.4 Mg) 1 tab Q5M PRN SL CHEST PAIN; Start 03/28/18 at 16:30 Acetaminophen (Tylenol Tab) 650 mg Q6H PRN PO PAIN LEVEL 1-3 OR FEVER; Start 03/28/18 at 16:30 Docusate Sodium (Colace) 100 mg Q12H PRN PO CONSTIPATION Last administered on 03/30/18at 20:12; Admin Dose 100 MG; Start 03/28/18 at 16:30 Magnesium Hydroxide (Milk Of Mag) 30 ml DAILY PRN PO CONSTIPATION; Start 03/28/18 at 16:30 Enoxaparin Sodium (Lovenox) 40 mg DAILY SC Last administered on 03/30/18at 08:5 3; Admin Dose 40 MG; Start 03/29/18 at 09:00 Furosemide (Lasix) 40 mg BID DIURETICS IV Last administered on 03/31/18at 05:00; Admin Dose 40 MG; Start 03/28/18 at 18:00 Sacubitril/ Valsartan (Entresto 24 Mg-26 Mg) 1 tab BID PO Last administered on 03/30/18at 20:10; Admin Dose 1 TAB; Start 03/28/18 at 21:00 Nystatin (Nystatin Powder) 1 applic BID TOP Last administered on 03/30/18at 20:15; Admin Dose 1 APPLIC; Start 03/28/18 at 21:00 Cholecalciferol (Vitamin D) 2,000 unit BID PO Last administered on 03/30/18 20:12; Admin Dose 2,000 UNIT; Start 03/28/18 at 21:00 Ceftriaxone Sodium 50 ml @ 100 mls/hr Q24H IVPB Last administered on 03/30/18at 18:35; Admin Dose 100 MLS/HR; Start 03/28/18 at 19:30 Miscellaneous Information (Pending [facility] Order For Wound Care) This patient rivera... PRN PRN XX soiled; Start 03/28/18 at 19:00 Potassium Chloride (Klor-Con 20) 40 meq DAILY PO Last administered on 03/30/18at 08:49; Admin Dose 40 MEQ; Start 03/29/18 at 06:30 Senna/Docusate Sodium (Senokot-S) 2 tab DAILY PO Last administered on 03/30/18at 08:42; Admin Dose 2 TAB; Start 03/30/18 at 09:00 Hydromorphone HCl (Dilaudid) 1 mg Q6H PRN IV SEVERE PAIN LEVEL 7-10 Last administered on 03/30/18 14:19; Admin Dose 1 MG; Start 03/29/18 at 17:30 Ascorbic Acid (Vitamin C) 500 mg BID PO Last administered on 03/30/18 20:13; Admin Dose 500 MG; Start 03/29/18 at 21:00; Stop 04/12/18 at 20:59 Zinc Sulfate (Zinc Sulfate) 220 mg DAILY PO Last administered on 03/30/18at 08:42; Admin Dose 220 MG; Start 03/30/18 at 09:00; Stop 04/13/18 at 08:59 Multivitamins Therapeutic (Theragran) 1 tab DAILY PO Last administered on 03/30/18at 08:49; Admin Dose 1 TAB; Start 03/30/18 at 09:00 Gabapentin (Neurontin) 200 mg TID PO Last administered on 03/30/18at 20:11; Admin Dose 200 MG; Start 03/30/18 at 13:00 Oxycodone HCl (Oxycontin) 30 mg QID PO Last administered on 03/30/18at 20:10; Admin Dose 30 MG; Start 03/30/18 at 13:00 Metoprolol Succinate (Toprol Xl) 25 mg BID PO Last administered on 03/30/18at 20:14; Admin Dose 25 MG; Start 03/30/18 at 21:00 Results Result Diagram: 03/31/1851203/31/18512 Results 24 hrs Laboratory Tests Test 03/31/18 05:13 White Blood Count 13.4 H Red Blood Count 5.32 Hemoglobin 12.5 L Hematocrit 40.4 L Mean Corpuscular Volume 75.9 L Mean Corpuscular Hemoglobin 23.5 L Mean Corpuscular Hemoglobin Concent 30.9 L Red Cell Distribution Width 21.2 H Platelet Count 350 Mean Platelet Volume 11.7 H Immature Granulocytes % 0.700 H Neutrophils % 84.9 H Lymphocytes % 6.0 L Monocytes % 8.3 Eosinophils % 0.0 Basophils % 0.1 Nucleated Red Blood Cells % 0.0 Immature Granulocytes # 0.100 H Neutrophils # 11.4 H Lymphocytes # 0.8 Monocytes # 1.1 H Eosinophils # 0.0 Basophils # 0.0 Nucleated Red Blood Cells # 0.0 Sodium Level 139 Potassium Level 4.1 Chloride Level 98 Carbon Dioxide Level 33 H Anion Gap 8 Blood Urea Nitrogen 15 Creatinine 0.85 Glucose Level 115 Calcium Level 9.2 Phosphorus Level 3.3 Magnesium Level 1.8 Albumin 3.3 SUSAN FAULKNER MD Mar 31, 2018 08:49
[2018-03-31] MEDS: ASCORBIC ACID 500 MG TAB PO SCH ×2 (09:40→21:23)
[2018-03-31] MEDS: ZINC SULFATE 220 MG CAP PO SCH (09:41)
[2018-03-31] MEDS: MULTIVITAMINS THERAPEUTIC TAB PO SCH (09:41)
[2018-03-31] MEDS: GABAPENTIN 100 MG CAP PO SCH ×3 (09:41→21:22)
[2018-03-31] MEDS: SENNA/DOCUSATE NA (8.6MG/50MG) TAB PO SCH (09:41)
[2018-03-31] MEDS: SPIRONOLACTONE 25 MG TAB PO SCH (09:41)
[2018-03-31] MEDS: SACUBITRIL/VALSARTAN (24mg-26mg) TABLET PO SCH ×2 (09:41→21:22)
[2018-03-31] MEDS: TIOTROPIUM 18 MCG CAPSULE INHA DEV INH SCH (09:41)
[2018-03-31] MEDS: POTASSIUM CHLORIDE (SR) 20 MEQ TAB PO SCH (09:42)
[2018-03-31] MEDS: CHOLECALCIFEROL 2,000 UNIT CAP PO SCH ×2 (09:42→21:23)
[2018-03-31] MEDS: NYSTATIN 30 GM POWDER BTL TOP SCH ×2 (09:43→21:35)
[2018-03-31] MEDS: METOPROLOL (XL) 25 MG TAB PO SCH (09:43)
[2018-03-31] MEDS: oxyCODONE (CR) 15 MG TAB [oxyCONTIN] PO SCH (09:43)
[2018-03-31] MEDS: BALSAM PERU/CASTOR OIL 60 GM TUBE TOP SCH (09:44)
[2018-03-31] MEDS: FERROUS GLUCONATE (EC) 325 MG TAB PO SCH ×2 (09:45→21:23)
[2018-03-31] MEDS: ENOXAPARIN 40 MG/0.4 ML SYG SC SCH (10:16)
[2018-03-31] MEDS ORDERED: oxyCODONE (CR) 20 MG TAB [oxyCONTIN] PO SCH (13:00)
--- NOTE | 2018-03-31 13:35 | CONS ---
Date/Time of Note Date/Time of Note DATE: 03/31/18 TIME: 13:33 Assessment/Plan Assessment/Plan Chief Complaint/Hosp Course IMPRESSION: 1. Congestive heart failure exacerbation, systolic, acute on chronic. 2. Cardiomyopathy with severely depressed left ventricular ejection fraction with last being approximately 20%. 3. Hypertension. 4. Dyslipidemia. 5. History of substance abuse. 6. Chronic obstructive pulmonary disease. 7. Bilateral lower extremity amputation and presenting with right stump pain. 8. Questionable history of intracardiac thrombus not seen by most recent echocardiogram dated 01/06/2018, but with severely depressed ejection fraction at that time of 20%. 9. Tobacco intake. 10. SVT-regular recurrent to 160-180. Broke with PO BB. Also questionable WCT right before Recc: -Tele -serial ecg's -Continue entresto -Increase BB further to improve HR/suppress SVT -s/p additional dose IVP digoxin to aide in contracitility and improve HR -Continue aldactone/lasix and follow volume status -Continue bronchodilators/abx's and f/u cx data -pain control Consultation Date/Type/Reason Admit Date/Time Mar 29, 2018 at 07:48 Initial Consult Date 03/29/18 Type of Consult cardiology Reason for Consultation CHF Requesting Provider: SUSAN FAULKNER MD Exam/Review of Systems Vital Signs Vitals Vital Signs Date Temp Pulse Resp B/P (MAP) Pulse Ox O2 O2 Flow FiO2 Time Delivery Rate 03/31/18 101 12:23 03/31/18 97.9 18 128/78 96 11:58 (95) 03/31/18 21 07:57 03/30/18 Room Air 15:32 Intake and Output 03/30/18 03/30/18 03/31/18 1515:00 23:00 07:00 IntakeIntake Total 1010 ml OutputOutput Total 2250 ml BalanceBalance -1240 ml Exam Review of Systems: CONSTITUTIONAL: No fevers, chills. PULMONARY: No sob CARDIOVASCULAR: No chest pain/palpitations GASTROINTESTINAL: No nausea/vomiting. GENITOURINARY: No hematuria/dysuria. MUSCULOSKELETAL: improved stump pain PSYCHIATRIC: The patient denies depression. NEUROLOGIC: No weakness Constitutional: alert Psych: no complaints Head: normocephalic ENMT: mucosa pink and moist Neck: supple, jvd Respiratory: clear to auscultation Cardiovascular: regular rate and rhythm Gastrointestinal: soft, non-tender Musculoskeletal: muscle tone (normal) Extremities: other (LE amputation) Neurological: other (No focal deficits) Medications Medications Current Medications Atorvastatin Calcium (Lipitor) 80 mg QHS PO Last administered on 03/30/18 20:11; Admin Dose 80 MG; Start 03/28/18 at 21:00 Budesonide (Pulmicort (Neb)) 0.5 mg BID RESP THERAPY HHN Last administered on 03/31/18 07:56; Admin Dose 0.5 MG; Start 03/28/18 at 20:00 Ferrous Gluconate (Fergon) 325 mg BID PO Last administered on 03/31/18 09:45; Admin Dose 325 MG; Start 03/28/18 at 21:00 Albuterol/ Ipratropium (Duoneb) 3 ml Q6HWA RESP THERAPY HHN Last administered on 03/31/18 07:56; Admin Dose 3 ML; Start 03/28/18 at 20:00 Montelukast Sodium (Singulair) 10 mg QHS PO Last administered on 03/30/18 20:13; Admin Dose 10 MG; Start 03/28/18 at 21:00 Pantoprazole (Protonix Tab) 40 mg DAILY@06 PO Last administered on 03/31/18 05:00; Admin Dose 40 MG; Start 03/29/18 at 06:00 Spironolactone (Aldactone) 25 mg DAILY PO Last administered on 03/31/18 09:41; Admin Dose 25 MG; Start 03/29/18 at 09:00 Tamsulosin HCl (Flomax) 0.4 mg HS PO Last administered on 03/30/18 20:12; Admin Dose 0.4 MG; Start 03/28/18 at 21:00 Tiotropium [place] (Spiriva) 1 inh DAILY INH Last administered on 03/31/18 09:41; Admin Dose 1 INH; Start 03/29/18 at 09:00 Albuterol (Proventil 0.083% (Neb)) 2.5 mg Q2H RESP THERAPY PRN HHN SHORTNESS OF BREATH; Start 03/28/18 at 16:30 IV Flush (NS 3 ml) 3 ml PER PROTOCOL IV ; Start 03/28/18 at 16:30 Ondansetron HCl (Zofran Inj) 4 mg Q6H PRN IV NAUSEA AND/OR VOMITING; Start 03/28/18 at 16:30 Nitroglycerin (Nitroglycerin (Sl Tab) 0.4 Mg) 1 tab Q5M PRN SL CHEST PAIN; Start 03/28/18 at 16:30 Acetaminophen (Tylenol Tab) 650 mg Q6H PRN PO PAIN LEVEL 1-3 OR FEVER; Start 03/28/18 at 16:30 Docusate Sodium (Colace) 100 mg Q12H PRN PO CONSTIPATION Last administered on 03/30/18 20:12; Admin Dose 100 MG; Start 03/28/18 at 16:30 Magnesium Hydroxide (Milk Of Mag) 30 ml DAILY PRN PO CONSTIPATION; Start 03/28/18 at 16:30 Enoxaparin Sodium (Lovenox) 40 mg DAILY SC Last administered on 03/31/18 10:16; Admin Dose 40 MG; Start 03/29/18 at 09:00 Furosemide (Lasix) 40 mg BID DIURETICS IV Last administered on 03/31/18 05:00; Admin Dose 40 MG; Start 03/28/18 at 18:00 Sacubitril/ Valsartan (Entresto 24 Mg-26 Mg) 1 tab BID PO Last administered on 03/31/18 09:41; Admin Dose 1 TAB; Start 03/28/18 at 21:00 Nystatin (Nystatin Powder) 1 applic BID TOP Last administered on 03/31/18 09:43; Admin Dose 1 APPLIC; Start 03/28/18 at 21:00 Cholecalciferol (Vitamin D) 2,000 unit BID PO Last administered on 03/31/18 09:42; Admin Dose 2,000 UNIT; Start 03/28/18 at 21:00 Ceftriaxone Sodium 50 ml @ 100 mls/hr Q24H IVPB Last administered on 03/30/18 18:35; Admin Dose 100 MLS/HR; Start 03/28/18 at 19:30 [facility] This patient rivera... PRN PRN XX soiled; Start 03/28/18 at 19:00 Potassium Chloride (Klor-Con 20) 40 meq DAILY PO Last administered on 03/31/18 09:42; Admin Dose 40 MEQ; Start 03/29/18 at 06:30 Senna/Docusate Sodium (Senokot-S) 2 tab DAILY PO Last administered on 03/31/18 09:41; Admin Dose 2 TAB; Start 03/30/18 at 09:00 Hydromorphone HCl (Dilaudid) 1 mg Q6H PRN IV SEVERE PAIN LEVEL 7-10 Last administered on 03/30/18 14:19; Admin Dose 1 MG; Start 03/29/18 at 17:30 Ascorbic Acid (Vitamin C) 500 mg BID PO Last administered on 03/31/18 09:40; Admin Dose 500 MG; Start 03/29/18 at 21:00; Stop 04/12/18 at 20:59 Zinc Sulfate (Zinc Sulfate) 220 mg DAILY PO Last administered on 03/31/18 09:41; Admin Dose 220 MG; Start 03/30/18 at 09:00; Stop 04/13/18 at 08:59 Multivitamins Therapeutic (Theragran) 1 tab DAILY PO Last administered on 03/31/18 09:41; Admin Dose 1 TAB; Start 03/30/18 at 09:00 Gabapentin (Neurontin) 200 mg TID PO Last administered on 03/31/18 09:41; Admin Dose 200 MG; Start 03/30/18 at 13:00 Metoprolol Succinate (Toprol Xl) 25 mg BID PO Last administered on 03/31/18 09:43; Admin Dose 25 MG; Start 03/30/18 at 21:00 Oxycodone HCl (Oxycontin) 20 mg QID PO ; Start 03/31/18 at 13:00 Results Result Diagram: 03/31/18 0513 03/31/18 0513 Results 24 hrs Laboratory Tests Test 03/31/18 05:13 White Blood Count 13.4 H Red Blood Count 5.32 Hemoglobin 12.5 L Hematocrit 40.4 L Mean Corpuscular Volume 75.9 L Mean Corpuscular Hemoglobin 23.5 L Mean Corpuscular Hemoglobin Concent 30.9 L Red Cell Distribution Width 21.2 H Platelet Count 350 Mean Platelet Volume 11.7 H Immature Granulocytes % 0.700 H Neutrophils % 84.9 H Lymphocytes % 6.0 L Monocytes % 8.3 Eosinophils % 0.0 Basophils % 0.1 Nucleated Red Blood Cells % 0.0 Immature Granulocytes # 0.100 H Neutrophils # 11.4 H Lymphocytes # 0.8 Monocytes # 1.1 H Eosinophils # 0.0 Basophils # 0.0 Nucleated Red Blood Cells # 0.0 Sodium Level 139 Potassium Level 4.1 Chloride Level 98 Carbon Dioxide Level 33 H Anion Gap 8 Blood Urea Nitrogen 15 Creatinine 0.85 Glucose Level 115 Calcium Level 9.2 Phosphorus Level 3.3 Magnesium Level 1.8 Albumin 3.3 VIVIAN PRINCE Mar 31, 2018 13:35
[2018-03-31] MEDS: CEFTRIAXONE 1 GM/50 ML (PMX) 50 ML IVPB SCH (18:34)
[2018-03-31] MEDS: oxyCODONE (CR) 20 MG TAB [oxyCONTIN] PO PRN (20:02)
[2018-03-31] MEDS: MONTELUKAST 10 MG TAB PO SCH (21:22)
[2018-03-31] MEDS: TAMSULOSIN (SR) 0.4 MG CAP PO SCH (21:22)
[2018-03-31] MEDS: ATORVASTATIN 80 MG TAB PO SCH (21:22)
[2018-03-31] MEDS: METOPROLOL (XL) 50 MG TAB PO SCH (21:27)
[2018-04-01] VITALS (11 sets, daily range): BP systolic 101–118; BP diastolic 56–89; PULSE 82–109; RESP 18–20
[2018-04-01] MEDS: PANTOPRAZOLE (EC) 40 MG TAB PO SCH (05:06)
[2018-04-01] MEDS: FUROSEMIDE 40 MG INJ IV SCH (05:07)
--- NOTE | 2018-04-01 08:28 | PN ---
Date/Time of Note Date/Time of Note DATE: 04/01/18 TIME: 08:28 Assessment/Plan VTE Prophylaxis Risk score (from Nsg)>0 risk: 6 SCD applied (from Nsg): No SCD contraindicated: bilateral amputee Pharmacological prophylaxis: apixaban Lines/Catheters IV Catheter Type (from Nrsg): Saline Lock Urinary Cath still in place: No Assessment/Plan Assessment/Plan 1. Acute pain in right thigh s/p b/l amputations - Pain management adjusted medications to PRN yesterday. Will monitor for excess sedation and decrease dose if needed - LE US negative for DVT. 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 Discussed with vascular, Dr. Rodríguez, who said it was chronic and will need to follow up with outpatient clinic at [facility] since RLE amputation was performed there. - PT/OT on board 2. Acute on chronic systolic heart failure- improving - Diuresing well and shortness of breath has resolved - Cardiology consultation placed and appreciate recommendations. - Echo results noted from prior admission with EF 20% - BNP noted 3. Wounds on elbows and sacrum - wound consultation appreciated 4. CAD - continue all home medications - stable 5. b/l AKA secondary PVD - PT/OT consultation appreciated 6. Episode of sustained vtach- resolved - BB increased to 50mg BID last night since still with tachycardia. Will need better HR control prior to d/c home 7. Disposition - Continue titrating pain medications for better control and less sedation. still with tachycardia and needs better HR control prior to d/c home. Subjective 24 Hr Interval Summary Free Text/Dictation Patient more awake this am since pain medications not given. Patient still complaining of pain in right thigh. Tachycardia appreciated overnight but no noted episodes of SVT Exam/Review of Systems Vital Signs Vitals Vital Signs Date Temp Pulse Resp B/P (MAP) Pulse Ox O2 O2 Flow FiO2 Time Delivery Rate 04/01/18 98.4 99 18 103/67 98 07:18 (79) 03/31/18 21 20:13 03/30/18 Room Air 15:32 Intake and Output 03/31/18 03/31/18 04/01/18 1414:59 22:59 06:59 IntakeIntake Total 850 ml OutputOutput Total 400 ml 800 ml BalanceBalance -400 ml 50 ml Exam General: Patient is currently sitting in bed, no acute distress Neck: Supple Lungs: Diminished breath rounds bilaterally, nonlabored breathing. no wheezing Heart: Normal S1-S2, Regular rhythm, tachycardia. no murmurs appreciated Abdomen: Soft , nontender, nondistended , bowel sounds are present. No guarding no rebound tenderness Extremities: Bilateral AKA. tenderness to palpation R thigh, no pain L Skin: no new abrasions, skin changes noted on right stump. no erythema or rashes appreciated. Medications Medications Current Medications Atorvastatin Calcium (Lipitor) 80 mg QHS PO Last administered on 03/31/18 21 :22; Admin Dose 80 MG; Start 03/28/18 at 21:00 Budesonide (Pulmicort (Neb)) 0.5 mg BID RESP THERAPY HHN Last administered on 03/31/18 07:56; Admin Dose 0.5 MG; Start 03/28/18 at 20:00 Ferrous Gluconate (Fergon) 325 mg BID PO Last administered on 03/31/18 21:23; Admin Dose 325 MG; Start 03/28/18 at 21:00 Albuterol/ Ipratropium (Duoneb) 3 ml Q6HWA RESP THERAPY HHN Last administered on 03/31/18 07:56; Admin Dose 3 ML; Start 03/28/18 at 20:00 Montelukast Sodium (Singulair) 10 mg QHS PO Last administered on 03/31/18 21:22; Admin Dose 10 MG; Start 03/28/18 at 21:00 Pantoprazole (Protonix Tab) 40 mg DAILY@06 PO Last administered on 04/01/18 05:06; Admin Dose 40 MG; Start 03/29/18 at 06:00 Spironolactone (Aldactone) 25 mg DAILY PO Last administered on 03/31/18 09:41; Admin Dose 25 MG; Start 03/29/18 at 09:00 Tamsulosin HCl (Flomax) 0.4 mg HS PO Last administered on 03/31/18 21:22; Admin Dose 0.4 MG; Start 03/28/18 at 21:00 Tiotropium [place] (Spiriva) 1 inh DAILY INH Last administered on 03/31/18 09:41; Admin Dose 1 INH; Start 03/29/18 at 09:00 Albuterol (Proventil 0.083% (Neb)) 2.5 mg Q2H RESP THERAPY PRN HHN SHORTNESS OF BREATH; Start 03/28/18 at 16:30 IV Flush (NS 3 ml) 3 ml PER PROTOCOL IV ; Start 03/28/18 at 16:30 Ondansetron HCl (Zofran Inj) 4 mg Q6H PRN IV NAUSEA AND/OR VOMITING; Start 03/28/18 at 16:30 Nitroglycerin (Nitroglycerin (Sl Tab) 0.4 Mg) 1 tab Q5M PRN SL CHEST PAIN; Start 03/28/18 at 16:30 Acetaminophen (Tylenol Tab) 650 mg Q6H PRN PO PAIN LEVEL 1-3 OR FEVER; Start 03/28/18 at 16:30 Docusate Sodium (Colace) 100 mg Q12H PRN PO CONSTIPATION Last administered on 03/30/18at 20:12; Admin Dose 100 MG; Start 03/28/18 at 16:30 Magnesium Hydroxide (Milk Of Mag) 30 ml DAILY PRN PO CONSTIPATION; Start 03/28/18 at 16:30 Enoxaparin Sodium (Lovenox) 40 mg DAILY SC Last administered on 03/31/18at 10:16; Admin Dose 40 MG; Start 03/29/18 at 09:00 Furosemide (Lasix) 40 mg BID DIURETICS IV Last administered on 04/01/18at 05 :07; Admin Dose 40 MG; Start 03/28/18 at 18:00 Sacubitril/ Valsartan (Entresto 24 Mg-26 Mg) 1 tab BID PO Last administered on 03/31/18at 21:22; Admin Dose 1 TAB; Start 03/28/18 at 21:00 Nystatin (Nystatin Powder) 1 applic BID TOP Last administered on 03/31/18at 21:35; Admin Dose 1 APPLIC; Start 03/28/18 at 21:00 Cholecalciferol (Vitamin D) 2,000 unit BID PO Last administered on 03/31/18 21:23; Admin Dose 2,000 UNIT; Start 03/28/18 at 21:00 Ceftriaxone Sodium 50 ml @ 100 mls/hr Q24H IVPB Last administered on 03/31/18at 18:34; Admin Dose 100 MLS/HR; Start 03/28/18 at 19:30 Miscellaneous Information (Pending [facility] Order For Wound Care) This patient rivera... PRN PRN XX soiled; Start 03/28/18 at 19:00 Potassium Chloride (Klor-Con 20) 40 meq DAILY PO Last administered on 03/31/18at 09:42; Admin Dose 40 MEQ; Start 03/29/18 at 06:30 Senna/Docusate Sodium (Senokot-S) 2 tab DAILY PO Last administered on 03/31/18 09:41; Admin Dose 2 TAB; Start 03/30/18 at 09:00 Ascorbic Acid (Vitamin C) 500 mg BID PO Last administered on 03/31/18 21:23; Admin Dose 500 MG; Start 03/29/18 at 21:00; Stop 04/12/18 at 20:59 Zinc Sulfate (Zinc Sulfate) 220 mg DAILY PO Last administered on 03/31/18 09:41; Admin Dose 220 MG; Start 03/30/18 at 09:00; Stop 04/13/18 at 08:59 Multivitamins Therapeutic (Theragran) 1 tab DAILY PO Last administered on 03/31/18 09:41; Admin Dose 1 TAB; Start 03/30/18 at 09:00 Gabapentin (Neurontin) 200 mg TID PO Last administered on 03/31/18 21:22; Ad min Dose 200 MG; Start 03/30/18 at 13:00 Metoprolol Succinate (Toprol Xl) 50 mg BID PO Last administered on 03/31/18 21:27; Admin Dose 50 MG; Start 03/31/18 at 21:00 Oxycodone HCl (Oxycontin) 20 mg BID PRN PO PAIN LEVEL 6-10 Last administered on 03/31/18at 20:02; Admin Dose 20 MG; Start 03/31/18 at 15:00 Results Result Diagram: 03/31/18 0513 04/01/18 0453 Results 24 hrs Laboratory Tests Test 04/01/18 04:53 Sodium Level 138 Potassium Level 4.4 Chloride Level 96 L Carbon Dioxide Level 32 H Anion Gap 10 Blood Urea Nitrogen 17 Creatinine 0.94 Glucose Level 137 Calcium Level 9.4 Phosphorus Level 3.9 Magnesium Level 1.9 Albumin 3.5 SUSAN FAULKNER MD Apr 01, 2018 08:28
[2018-04-01] MEDS: ALBUTEROL/IPRATROPIUM (NEB) 3 ML AMP HHN SCH ×3 (08:35→20:00)
[2018-04-01] MEDS: BUDESONIDE (NEB) 0.5MG/2ML AMP HHN SCH ×2 (08:45→20:00)
[2018-04-01] MEDS: BALSAM PERU/CASTOR OIL 60 GM TUBE TOP SCH ×2 (09:00→14:28)
[2018-04-01] MEDS: METOPROLOL (XL) 50 MG TAB PO SCH ×3 (09:00→21:30)
[2018-04-01] MEDS: SACUBITRIL/VALSARTAN (24mg-26mg) TABLET PO SCH ×3 (09:00→21:29)
[2018-04-01] MEDS: CHOLECALCIFEROL 2,000 UNIT CAP PO SCH ×2 (09:07→21:29)
[2018-04-01] MEDS: GABAPENTIN 100 MG CAP PO SCH ×3 (09:07→21:29)
[2018-04-01] MEDS: POTASSIUM CHLORIDE (SR) 20 MEQ TAB PO SCH (09:07)
[2018-04-01] MEDS: ASCORBIC ACID 500 MG TAB PO SCH ×2 (09:07→21:28)
[2018-04-01] MEDS: TIOTROPIUM 18 MCG CAPSULE INHA DEV INH SCH (09:07)
[2018-04-01] MEDS: FERROUS GLUCONATE (EC) 325 MG TAB PO SCH ×2 (09:07→21:29)
[2018-04-01] MEDS: ZINC SULFATE 220 MG CAP PO SCH (09:08)
[2018-04-01] MEDS: SENNA/DOCUSATE NA (8.6MG/50MG) TAB PO SCH (09:08)
[2018-04-01] MEDS: MULTIVITAMINS THERAPEUTIC TAB PO SCH (09:08)
[2018-04-01] MEDS: NYSTATIN 30 GM POWDER BTL TOP SCH ×2 (09:09→21:33)
[2018-04-01] MEDS: SPIRONOLACTONE 25 MG TAB PO SCH (09:10)
[2018-04-01] MEDS: ENOXAPARIN 40 MG/0.4 ML SYG SC SCH (09:24)
--- NOTE | 2018-04-01 13:38 | CONS ---
Date/Time of Note Date/Time of Note DATE: 04/01/18 TIME: 13:34 Assessment/Plan Assessment/Plan Chief Complaint/Hosp Course IMPRESSION: 1. Congestive heart failure exacerbation, systolic, acute on chronic. 2. Cardiomyopathy with severely depressed left ventricular ejection fraction with last being approximately 20%. 3. Hypertension. 4. Dyslipidemia. 5. History of substance abuse. 6. Chronic obstructive pulmonary disease. 7. Bilateral lower extremity amputation and presenting with right stump pain. 8. Questionable history of intracardiac thrombus not seen by most recent echocardiogram dated 01/06/2018, but with severely depressed ejection fraction at that time of 20%. 9. Tobacco intake. 10. SVT-regular recurrent to 160-180. Broke with PO BB. Also questionable WCT right before Recc: -Tele -serial ecg's -Continue entresto -Continue BB -Continue aldactone/lasix and follow volume status and will change lasix to po -Continue bronchodilators/abx's and f/u cx data -start PO digoxin -pain control Consultation Date/Type/Reason Admit Date/Time Mar 29, 2018 at 07:48 Initial Consult Date 03/29/18 Type of Consult cardiology Reason for Consultation CHF Requesting Provider: SUSAN FAULKNER MD Exam/Review of Systems Vital Signs Vitals Vital Signs Date Temp Pulse Resp B/P (MAP) Pulse Ox O2 O2 Flow FiO2 Time Delivery Rate 04/01/18 103 12:28 04/01/18 98.9 18 118/67 99 11:24 (84) 04/01/18 21 08:35 03/30/18 Room Air 15:32 Intake and Output 03/31/18 03/31/18 04/01/18 1515:00 23:00 07:00 IntakeIntake Total 850 ml OutputOutput Total 400 ml 800 ml BalanceBalance -400 ml 50 ml Exam Review of Systems: CONSTITUTIONAL: No fevers, chills. PULMONARY: No sob CARDIOVASCULAR: No chest pain/palpitations GASTROINTESTINAL: No nausea/vomiting. GENITOURINARY: No hematuria/dysuria. MUSCULOSKELETAL: No myagias/arthalgias. PSYCHIATRIC: The patient denies depression. NEUROLOGIC: No weakness Constitutional: alert Psych: no complaints Head: normocephalic ENMT: mucosa pink and moist Neck: supple, jvd (9 cm water) Respiratory: diminished breath sounds Cardiovascular: regular rate and rhythm Gastrointestinal: soft, non-tender Musculoskeletal: muscle tone (normal) Extremities: edema (none) Neurological: other (No focal deficits) Medications Medications Current Medications Atorvastatin Calcium (Lipitor) 80 mg QHS PO Last administered on 03/31/18 21:22; Admin Dose 80 MG; Start 03/28/18 at 21:00 Budesonide (Pulmicort (Neb)) 0.5 mg BID RESP THERAPY HHN Last administered on 03/31/18 07:56; Admin Dose 0.5 MG; Start 03/28/18 at 20:00 Ferrous Gluconate (Fergon) 325 mg BID PO Last administered on 04/01/18 09:07; Admin Dose 325 MG; Start 03/28/18 at 21:00 Albuterol/ Ipratropium (Duoneb) 3 ml Q6HWA RESP THERAPY HHN Last administered on 04/01/18 08:35; Admin Dose 3 ML; Start 03/28/18 at 20:00 Montelukast Sodium (Singulair) 10 mg QHS PO Last administered on 03/31/18 21:22; Admin Dose 10 MG; Start 03/28/18 at 21:00 Pantoprazole (Protonix Tab) 40 mg DAILY@06 PO Last administered on 04/01/18 05:06; Admin Dose 40 MG; Start 03/29/18 at 06:00 Spironolactone (Aldactone) 25 mg DAILY PO Last administered on 04/01/18 09:10; Admin Dose 25 MG; Start 03/29/18 at 09:00 Tamsulosin HCl (Flomax) 0.4 mg HS PO Last administered on 03/31/18 21:22; Admin Dose 0.4 MG; Start 03/28/18 at 21:00 Tiotropium [place] (Spiriva) 1 inh DAILY INH Last administered on 04/01/18 09:07; Admin Dose 1 INH; Start 03/29/18 at 09:00 Albuterol (Proventil 0.083% (Neb)) 2.5 mg Q2H RESP THERAPY PRN HHN SHORTNESS OF BREATH; Start 03/28/18 at 16:30 IV Flush (NS 3 ml) 3 ml PER PROTOCOL IV ; Start 03/28/18 at 16:30 Ondansetron HCl (Zofran Inj) 4 mg Q6H PRN IV NAUSEA AND/OR VOMITING; Start 03/28/18 at 16:30 Nitroglycerin (Nitroglycerin (Sl Tab) 0.4 Mg) 1 tab Q5M PRN SL CHEST PAIN; Start 03/28/18 at 16:30 Acetaminophen (Tylenol Tab) 650 mg Q6H PRN PO PAIN LEVEL 1-3 OR FEVER; Start 03/28/18 at 16:30 Docusate Sodium (Colace) 100 mg Q12H PRN PO CONSTIPATION Last administered on 03/30/18at 20:12; Admin Dose 100 MG; Start 03/28/18 at 16:30 Magnesium Hydroxide (Milk Of Mag) 30 ml DAILY PRN PO CONSTIPATION; Start 03/28/18 at 16:30 Enoxaparin Sodium (Lovenox) 40 mg DAILY SC Last administered on 04/01/18 09:24; Admin Dose 40 MG; Start 03/29/18 at 09:00 Furosemide (Lasix) 40 mg BID DIURETICS IV Last administered on 04/01/18at 05:07; Admin Dose 40 MG; Start 03/28/18 at 18:00 Sacubitril/ Valsartan (Entresto 24 Mg-26 Mg) 1 tab BID PO Last administered on 04/01/18 13:05; Admin Dose 1 TAB; Start 03/28/18 at 21:00 Nystatin (Nystatin Powder) 1 applic BID TOP Last administered on 04/01/18at 09:09; Admin Dose 1 APPLIC; Start 03/28/18 at 21:00 Cholecalciferol (Vitamin D) 2,000 unit BID PO Last administered on 04/01/18at 09:07; Admin Dose 2,000 UNIT; Start 03/28/18 at 21:00 Ceftriaxone Sodium 50 ml @ 100 mls/hr Q24H IVPB Last administered on 03/31/18 18:34; Admin Dose 100 MLS/HR; Start 03/28/18 at 19:30 Miscellaneous Information (Pending [facility] Order For Wound Care) This patient rivera... PRN PRN XX soiled; Start 03/28/18 at 19:00 Potassium Chloride (Klor-Con 20) 40 meq DAILY PO Last administered on 04/01/18at 09:07; Admin Dose 40 MEQ; Start 03/29/18 at 06:30 Senna/Docusate Sodium (Senokot-S) 2 tab DAILY PO Last administered on 04/01/18at 09:08; Admin Dose 2 TAB; Start 03/30/18 at 09:00 Ascorbic Acid (Vitamin C) 500 mg BID PO Last administered on 04/01/18at 09:07; Admin Dose 500 MG; Start 03/29/18 at 21:00; Stop 04/12/18 at 20:59 Zinc Sulfate (Zinc Sulfate) 220 mg DAILY PO Last administered on 04/01/18at 09:08; Admin Dose 220 MG; Start 03/30/18 at 09:00; Stop 04/13/18 at 08:59 Multivitamins Therapeutic (Theragran) 1 tab DAILY PO Last administered on 04/01/18at 09:08; Admin Dose 1 TAB; Start 03/30/18 at 09:00 Gabapentin (Neurontin) 200 mg TID PO Last administered on 04/01/18at 13:03; Admin Dose 200 MG; Start 03/30/18 at 13:00 Metoprolol Succinate (Toprol Xl) 50 mg BID PO Last administered on 04/01/18at 13:04; Admin Dose 50 MG; Start 03/31/18 at 21:00 Oxycodone HCl (Oxycontin) 20 mg BID PRN PO PAIN LEVEL 6-10 Last administered on 03/31/18at 20:02; Admin Dose 20 MG; Start 03/31/18 at 15:00 Results Result Diagram: 03/31/18 0513 04/01/18 0453 Results 24 hrs Laboratory Tests Test 04/01/18 04:53 Sodium Level 138 Potassium Level 4.4 Chloride Level 96 L Carbon Dioxide Level 32 H Anion Gap 10 Blood Urea Nitrogen 17 Creatinine 0.94 Glucose Level 137 Calcium Level 9.4 Phosphorus Level 3.9 Magnesium Level 1.9 Albumin 3.5 VIVIAN PRINCE Apr 01, 2018 13:38
[2018-04-01] MEDS: oxyCODONE (CR) 20 MG TAB [oxyCONTIN] PO PRN (14:11)
[2018-04-01] MEDS: CEFTRIAXONE 1 GM/50 ML (PMX) 50 ML IVPB SCH (18:27)
[2018-04-01] MEDS: FUROSEMIDE 40 MG TAB PO SCH (18:27)
[2018-04-01] MEDS: ATORVASTATIN 80 MG TAB PO SCH (21:28)
[2018-04-01] MEDS: TAMSULOSIN (SR) 0.4 MG CAP PO SCH (21:29)
[2018-04-01] MEDS: MONTELUKAST 10 MG TAB PO SCH (21:29)
[2018-04-02] VITALS (11 sets, daily range): BP systolic 100–142; BP diastolic 61–72; PULSE 79–107; RESP 18–20
[2018-04-02] MEDS: oxyCODONE (CR) 20 MG TAB [oxyCONTIN] PO PRN ×3 (01:29→20:44)
[2018-04-02] MEDS: PANTOPRAZOLE (EC) 40 MG TAB PO SCH (06:17)
[2018-04-02] MEDS: FUROSEMIDE 40 MG TAB PO SCH ×2 (06:18→17:55)
[2018-04-02] MEDS: ALBUTEROL/IPRATROPIUM (NEB) 3 ML AMP HHN SCH ×3 (08:00→20:00)
[2018-04-02] MEDS: BUDESONIDE (NEB) 0.5MG/2ML AMP HHN SCH ×2 (08:06→20:00)
[2018-04-02] MEDS: SACUBITRIL/VALSARTAN (24mg-26mg) TABLET PO SCH ×2 (08:39→20:27)
[2018-04-02] MEDS: SENNA/DOCUSATE NA (8.6MG/50MG) TAB PO SCH (08:39)
[2018-04-02] MEDS: FERROUS GLUCONATE (EC) 325 MG TAB PO SCH ×2 (08:39→20:27)
[2018-04-02] MEDS: ZINC SULFATE 220 MG CAP PO SCH (08:39)
[2018-04-02] MEDS: TIOTROPIUM 18 MCG CAPSULE INHA DEV INH SCH (08:40)
[2018-04-02] MEDS: GABAPENTIN 100 MG CAP PO SCH ×3 (08:40→20:27)
[2018-04-02] MEDS: MULTIVITAMINS THERAPEUTIC TAB PO SCH (08:40)
[2018-04-02] MEDS: CHOLECALCIFEROL 2,000 UNIT CAP PO SCH ×2 (08:40→20:26)
[2018-04-02] MEDS: ASCORBIC ACID 500 MG TAB PO SCH ×2 (08:40→21:00)
[2018-04-02] MEDS: METOPROLOL (XL) 50 MG TAB PO SCH ×2 (08:40→20:28)
[2018-04-02] MEDS: POTASSIUM CHLORIDE (SR) 20 MEQ TAB PO SCH (08:40)
[2018-04-02] MEDS: SPIRONOLACTONE 25 MG TAB PO SCH (08:40)
[2018-04-02] MEDS: BALSAM PERU/CASTOR OIL 60 GM TUBE TOP SCH (08:42)
[2018-04-02] MEDS: NYSTATIN 30 GM POWDER BTL TOP SCH ×2 (08:42→22:24)
[2018-04-02] MEDS: ENOXAPARIN 40 MG/0.4 ML SYG SC SCH (09:47)
--- NOTE | 2018-04-02 10:54 | CONS ---
Date/Time of Note Date/Time of Note DATE: 04/02/18 TIME: 10:51 Assessment/Plan Assessment/Plan Chief Complaint/Hosp Course IMPRESSION: 1. Congestive heart failure exacerbation, systolic, acute on chronic. 2. Cardiomyopathy with severely depressed left ventricular ejection fraction with last being approximately 20%. 3. Hypertension. 4. Dyslipidemia. 5. History of substance abuse. 6. Chronic obstructive pulmonary disease. 7. Bilateral lower extremity amputation and presenting with right stump pain. 8. Questionable history of intracardiac thrombus not seen by most recent echocardiogram dated 01/06/2018, but with severely depressed ejection fraction at that time of 20%. 9. Tobacco intake. 10. SVT-regular recurrent to 160-180. Broke with PO BB. Also questionable WCT right before. Had recurrent SVT o/n 04/01 Recc: -Tele -serial ecg's -Continue entresto -Continue BB -Continue aldactone/lasix and follow volume status and will change lasix to po -Continue bronchodilators/abx's and f/u cx data -start PO digoxin and will give additional IVP digoxin dose -pain control Consultation Date/Type/Reason Admit Date/Time Mar 29, 2018 at 07:48 Initial Consult Date 03/29/18 Type of Consult cardiology Reason for Consultation CHF Requesting Provider: SUSAN FAULKNER MD Exam/Review of Systems Vital Signs Vitals Vital Signs Date Temp Pulse Resp B/P (MAP) Pulse Ox O2 O2 Flow FiO2 Time Delivery Rate 04/02/18 107 08:37 04/02/18 98.0 18 130/72 99 07:38 (91) 04/02/18 21 01:26 03/30/18 Room Air 15:32 Intake and Output 04/01/18 04/01/18 04/02/18 1515:00 23:00 07:00 IntakeIntake Total 1250 ml 8 ml OutputOutput Total 1100 ml 800 ml BalanceBalance 150 ml -792 ml Exam Review of Systems: CONSTITUTIONAL: No fevers, chills. PULMONARY: No sob CARDIOVASCULAR: No chest pain/palpitations GASTROINTESTINAL: No nausea/vomiting. GENITOURINARY: No hematuria/dysuria. MUSCULOSKELETAL: No myagias/arthalgias. PSYCHIATRIC: The patient denies depression. NEUROLOGIC: No weakness Constitutional: alert Psych: no complaints Head: normocephalic ENMT: mucosa pink and moist Neck: supple, jvd (9 cm wter) Respiratory: diminished breath sounds (at bases/B) Cardiovascular: regular rate and rhythm Gastrointestinal: soft, non-tender Musculoskeletal: muscle tone (normal) Extremities: other (bilateral LE amputation) Medications Medications Current Medications Atorvastatin Calcium (Lipitor) 80 mg QHS PO Last administered on 04/01/18 21:28; Admin Dose 80 MG; Start 03/28/18 at 21:00 Budesonide (Pulmicort (Neb)) 0.5 mg BID RESP THERAPY HHN Last administered on 03/31/18at 07:56; Admin Dose 0.5 MG; Start 03/28/18 at 20:00 Ferrous Gluconate (Fergon) 325 mg BID PO Last administered on 04/02/18 08:39; Admin Dose 325 MG; Start 03/28/18 at 21:00 Albuterol/ Ipratropium (Duoneb) 3 ml Q6HWA RESP THERAPY HHN Last administered on 04/01/18 08:35; Admin Dose 3 ML; Start 03/28/18 at 20:00 Montelukast Sodium (Singulair) 10 mg QHS PO Last administered on 04/01/18 21:29; Admin Dose 10 MG; Start 03/28/18 at 21:00 Pantoprazole (Protonix Tab) 40 mg DAILY@06 PO Last administered on 04/02/18 06:17; Admin Dose 40 MG; Start 03/29/18 at 06:00 Spironolactone (Aldactone) 25 mg DAILY PO Last administered on 04/02/18at 08:40; Admin Dose 25 MG; Start 03/29/18 at 09:00 Tamsulosin HCl (Flomax) 0.4 mg HS PO Last administered on 04/01/18 21:29; Admin Dose 0.4 MG; Start 03/28/18 at 21:00 Tiotropium [place] (Spiriva) 1 inh DAILY INH Last administered on 04/02/18at 08:40; Admin Dose 1 INH; Start 03/29/18 at 09:00 Albuterol (Proventil 0.083% (Neb)) 2.5 mg Q2H RESP THERAPY PRN HHN SHORTNESS OF BREATH; Start 03/28/18 at 16:30 IV Flush (NS 3 ml) 3 ml PER PROTOCOL IV ; Start 03/28/18 at 16:30 Ondansetron HCl (Zofran Inj) 4 mg Q6H PRN IV NAUSEA AND/OR VOMITING; Start 03/28/18 at 16:30 Nitroglycerin (Nitroglycerin (Sl Tab) 0.4 Mg) 1 tab Q5M PRN SL CHEST PAIN; S tart 03/28/18 at 16:30 Acetaminophen (Tylenol Tab) 650 mg Q6H PRN PO PAIN LEVEL 1-3 OR FEVER; Start 03/28/18 at 16:30 Docusate Sodium (Colace) 100 mg Q12H PRN PO CONSTIPATION Last administered on 1 05/31/17at 20:12; Admin Dose 100 MG; Start 03/28/18 at 16:30 Magnesium Hydroxide (Milk Of Mag) 30 ml DAILY PRN PO CONSTIPATION; Start 03/28/18 at 16:30 Enoxaparin Sodium (Lovenox) 40 mg DAILY SC Last administered on 04/02/18at 09:47; Admin Dose 40 MG; Start 03/29/18 at 09:00 Sacubitril/ Valsartan (Entresto 24 Mg-26 Mg) 1 tab BID PO Last administered on 04/02/18at 08:39; Admin Dose 1 TAB; Start 03/28/18 at 21:00 Nystatin (Nystatin Powder) 1 applic BID TOP Last administered on 04/02/18at 08 :42; Admin Dose 1 APPLIC; Start 03/28/18 at 21:00 Cholecalciferol (Vitamin D) 2,000 unit BID PO Last administered on 04/02/18at 08:40; Admin Dose 2,000 UNIT; Start 03/28/18 at 21:00 Ceftriaxone Sodium 50 ml @ 100 mls/hr Q24H IVPB Last administered on 04/01/18at 18:27; Admin Dose 100 MLS/HR; Start 03/28/18 at 19:30 Miscellaneous Information (Pending [facility] Order For Wound Care) This patient h a... PRN PRN XX soiled; Start 03/28/18 at 19:00 Potassium Chloride (Klor-Con 20) 40 meq DAILY PO Last administered on 04/02/18at 08:40; Admin Dose 40 MEQ; Start 03/29/18 at 06:30 Senna/Docusate Sodium (Senokot-S) 2 tab DAILY PO Last administered on 04/02/18at 08:39; Admin Dose 2 TAB; Start 03/30/18 at 09:00 Ascorbic Acid (Vitamin C) 500 mg BID PO Last administered on 04/02/18at 08:40; Admin Dose 500 MG; Start 03/29/18 at 21:00; Stop 04/12/18 at 20:59 Zinc Sulfate (Zinc Sulfate) 220 mg DAILY PO Last administered on 04/02/18at 08:39; Admin Dose 220 MG; Start 03/30/18 at 09:00; Stop 04/13/18 at 08:59 Multivitamins Therapeutic (Theragran) 1 tab DAILY PO Last administered on 04/02/18at 08:40; Admin Dose 1 TAB; Start 03/30/18 at 09:00 Gabapentin (Neurontin) 200 mg TID PO Last administered on 04/02/18at 08:40; Admin Dose 200 MG; Start 03/30/18 at 13:00 Metoprolol Succinate (Toprol Xl) 50 mg BID PO Last administered on 04/02/18at 08:40; Admin Dose 50 MG; Start 03/31/18 at 21:00 Oxycodone HCl (Oxycontin) 20 mg BID PRN PO PAIN LEVEL 6-10 Last administered on 04/02/18at 01:29; Admin Dose 20 MG; Start 03/31/18 at 15:00 Furosemide (Lasix) 40 mg BID DIURETICS PO Last administered on 04/02/18at 06:18; Admin Dose 40 MG; Start 04/01/18 at 18:00 Digoxin (Digoxin) 0.125 mg DAILY@13 PO ; Start 04/02/18 at 13:00 Results Result Diagram: 04/02/18 0451 04/02/18 0451 Results 24 hrs Laboratory Tests Test 04/01/18 13:08 04/02/18 04:51 Urine Opiates Screen Positive Urine Barbiturates Negative Urine Amphetamines Screen Negative Urine Benzodiazepines Screen Negative Urine Cocaine Screen Positive Urine Cannabinoids Negative White Blood Count 17.8 #H Red Blood Count 5.05 Hemoglobin 12.1 L Hematocrit 37.9 L Mean Corpuscular Volume 75.0 L Mean Corpuscular Hemoglobin 24.0 L Mean Corpuscular Hemoglobin Concent 31.9 L Red Cell Distribution Width 21.2 H Platelet Count 322 Mean Platelet Volume 11.4 H Immature Granulocytes % 0.600 H Neutrophils % 81.7 H Lymphocytes % 7.6 L Monocytes % 9.8 Eosinophils % 0.1 Basophils % 0.2 Nucleated Red Blood Cells % 0.0 Immature Granulocytes # 0.100 H Neutrophils # 14.6 H Lymphocytes # 1.4 Monocytes # 1.7 H Eosinophils # 0.0 Basophils # 0.0 Nucleated Red Blood Cells # 0.0 Sodium Level 132 L Potassium Level 4.2 Chloride Level 95 L Carbon Dioxide Level 28 Anion Gap 9 Blood Urea Nitrogen 22 H Creatinine 1.10 Glucose Level 157 Calcium Level 8.9 Phosphorus Level 3.2 Magnesium Level 1.8 Albumin 3.3 VIVIAN PRINCE Apr 02, 2018 10:54
[2018-04-02] MEDS ORDERED: DIGOXIN 500 MCG INJ IV ONE (11:00)
[2018-04-02] MEDS ORDERED: CEFTRIAXONE 1 GM/50 ML (PMX) 50 ML IVPB SCH (11:30)
[2018-04-02] MEDS: DIGOXIN 0.125 MG TAB PO SCH (13:21)
--- NOTE | 2018-04-02 13:51 | PN ---
Date/Time of Note Date/Time of Note DATE: 04/02/18 TIME: 13:51 Objective Vitals Vital Signs Date Temp Pulse Resp B/P (MAP) Pulse Ox O2 O2 Flow FiO2 Time Delivery Rate 04/02/18 106 12:25 04/02/18 98.5 18 142/62 92 11:11 (88) 04/02/18 21 01:26 03/30/18 Room Air 15:32 Intake and Output 04/01/18 04/01/18 04/02/18 1515:00 23:00 07:00 IntakeIntake Total 1250 ml 8 ml OutputOutput Total 1100 ml 800 ml BalanceBalance 150 ml -792 ml Results Result Diagram: 04/02/18 0451 04/02/18 0451 Medications Medications Current Medications Atorvastatin Calcium (Lipitor) 80 mg QHS PO Last administered on 04/01/18at 21:28; Admin Dose 80 MG; Start 03/28/18 at 21:00 Budesonide (Pulmicort (Neb)) 0.5 mg BID RESP THERAPY HHN Last administered on 03/31/18at 07:56; Admin Dose 0.5 MG; Start 03/28/18 at 20:00 Ferrous Gluconate (Fergon) 325 mg BID PO Last administered on 04/02/18 08:39; Admin Dose 325 MG; Start 03/28/18 at 21:00 Albuterol/ Ipratropium (Duoneb) 3 ml Q6HWA RESP THERAPY HHN Last administered on 04/01/18at 08:35; Admin Dose 3 ML; Start 03/28/18 at 20:00 Montelukast Sodium (Singulair) 10 mg QHS PO Last administered on 04/01/18 21:29; Admin Dose 10 MG; Start 03/28/18 at 21:00 Pantoprazole (Protonix Tab) 40 mg DAILY@06 PO Last administered on 04/02/18 06:17; Admin Dose 40 MG; Start 03/29/18 at 06:00 Spironolactone (Aldactone) 25 mg DAILY PO Last administered on 04/02/18 08:40; Admin Dose 25 MG; Start 03/29/18 at 09:00 Tamsulosin HCl (Flomax) 0.4 mg HS PO Last administered on 04/01/18 21:29; Admin Dose 0.4 MG; Start 03/28/18 at 21:00 Tiotropium [place] (Spiriva) 1 inh DAILY INH Last administered on 04/02/18at 08:40; Admin Dose 1 INH; Start 03/29/18 at 09:00 Albuterol (Proventil 0.083% (Neb)) 2.5 mg Q2H RESP THERAPY PRN HHN SHORTNESS OF BREATH; Start 03/28/18 at 16:30 IV Flush (NS 3 ml) 3 ml PER PROTOCOL IV ; Start 03/28/18 at 16:30 Ondansetron HCl (Zofran Inj) 4 mg Q6H PRN IV NAUSEA AND/OR VOMITING; Start 03/28/18 at 16:30 Nitroglycerin (Nitroglycerin (Sl Tab) 0.4 Mg) 1 tab Q5M PRN SL CHEST PAIN; Start 03/28/18 at 16:30 Acetaminophen (Tylenol Tab) 650 mg Q6H PRN PO PAIN LEVEL 1-3 OR FEVER; Start 03/28/18 at 16:30 Docusate Sodium (Colace) 100 mg Q12H PRN PO CONSTIPATION Last administered on 03/30/18at 20:12; Admin Dose 100 MG; Start 03/28/18 at 16:30 Magnesium Hydroxide (Milk Of Mag) 30 ml DAILY PRN PO CONSTIPATION; Start 03/28/18 at 16:30 Enoxaparin Sodium (Lovenox) 40 mg DAILY SC Last administered on 04/02/18at 09:47; Admin Dose 40 MG; Start 03/29/18 at 09:00 Sacubitril/ Valsartan (Entresto 24 Mg-26 Mg) 1 tab BID PO Last administered on 04/02/18at 08:39; Admin Dose 1 TAB; Start 03/28/18 at 21:00 Nystatin (Nystatin Powder) 1 applic BID TOP Last administered on 04/02/18at 08:42; Admin Dose 1 APPLIC; Start 03/28/18 at 21:00 Cholecalciferol (Vitamin D) 2,000 unit BID PO Last administered on 04/02/18at 08:40; Admin Dose 2,000 UNIT; Start 03/28/18 at 21:00 Ceftriaxone Sodium 50 ml @ 100 mls/hr Q24H IVPB Last administered on 04/01/18at 18:27; Admin Dose 100 MLS/HR; Start 03/28/18 at 19:30 Miscellaneous Information (Pending [facility] Order For Wound Care) This patient rivera... PRN PRN XX soiled; Start 03/28/18 at 19:00 Potassium Chloride (Klor-Con 20) 40 meq DAILY PO Last administered on 04/02at 08:40; Admin Dose 40 MEQ; Start 03/29/18 at 06:30 Senna/Docusate Sodium (Senokot-S) 2 tab DAILY PO Last administered on 04/02/18at 08:39; Admin Dose 2 TAB; Start 03/30/18 at 09:00 Ascorbic Acid (Vitamin C) 500 mg BID PO Last administered on 04/02/18at 08:40; Admin Dose 500 MG; Start 03/29/18 at 21:00; Stop 04/12/18 at 20:59 Zinc Sulfate (Zinc Sulfate) 220 mg DAILY PO Last administered on 04/02/18at 08:39; Admin Dose 220 MG; Start 03/30/18 at 09:00; Stop 04/13/18 at 08:59 Multivitamins Therapeutic (Theragran) 1 tab DAILY PO Last administered on 04/02/18at 08:40; Admin Dose 1 TAB; Start 03/30/18 at 09:00 Gabapentin (Neurontin) 200 mg TID PO Last administered on 04/02/18at 13:21; Admin Dose 200 MG; Start 03/30/18 at 13:00 Metoprolol Succinate (Toprol Xl) 50 mg BID PO Last administered on 04/02/18at 08:40; Admin Dose 50 MG; Start 03/31/18 at 21:00 Oxycodone HCl (Oxycontin) 20 mg BID PRN PO PAIN LEVEL 6-10 Last administered on 04/02/18at 01:29; Admin Dose 20 MG; Start 03/31/18 at 15:00 Furosemide (Lasix) 40 mg BID DIURETICS PO Last administered on 04/02/18at 06:18; Admin Dose 40 MG; Start 04/01/18 at 18:00 Digoxin (Digoxin) 0.125 mg DAILY@13 PO Last administered on 04/02/18at 13:21; Admin Dose 0.125 MG; Start 04/02/18 at 13:00 Oxycodone/ Acetaminophen (Percocet (5/ 325)) 1 tab Q4H PRN PO MODERATE PAIN LEVEL 4-6; Start 04/02/18 at 14:00 VTE Prophylaxis Risk score (from Nsg)>0 risk: 6 SCD applied (from Ns): No SCD contraindication: other Lines/Catheters IV Catheter Type: Delatorre in Place: No Assessment/Plan Hospital Course Subjective No new acute complaints Objective Physical exam General: Patient is laying in bed and answers questions appropriately Mentation: Patient is alert and oriented 4, Head: Normocephalic atraumatic Eyes: EOMI, pupils reactive to light Neck: Supple, nontender, midline Respiratory: Clear to auscultation bilaterally Cardiovascular: regular rate, no obvious murmurs Gastrointestinal: non-tender to palpation, bowel sounds heard. Neurological: Moves all extremities spontaneously Musculoskeletal: Bilateral AKA Assessment/Plan 1. Acute pain in right thigh s/p b/l amputations - Pain management adjusted medications to PRN yesterday. Will monitor for excess sedation and decrease dose if needed - LE US negative for DVT. 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 Discussed with vascular, Dr. Rodríguez, who said it was chronic and will need to follow up with outpatient clinic at [facility] since RLE amputation was performed there. - PT/OT on board leukocytosis -mild elevation, no true signs of infection -initiate abx, but will order UA and cultures. 2. Acute on chronic systolic heart failure- improving - Diuresing well and shortness of breath has resolved - Cardiology consultation placed and appreciate recommendations. - Echo results noted from prior admission with EF 20% - BNP noted 3. Wounds on elbows and sacrum - wound consultation appreciated 4. CAD - continue all home medications - stable 5. b/l AKA secondary PVD - PT/OT consultation appreciated 6. Episode of sustained vtach- resolved - BB continues to be adjusted. still with tachycardia. Will need better HR control prior to d/c home 7. Disposition - Continue titrating pain medications for better control and less sedation. still with tachycardia and needs better HR control prior to d/c home. ZACH SIMON Apr 02, 2018 13:51
[2018-04-02] MEDS: OXYCODONE/ACETAMINOPHEN (5/325) TAB PO PRN (14:01)
[2018-04-02] MEDS: BISACODYL (EC) 5 MG TAB PO PRN (18:58)
[2018-04-02] MEDS: MONTELUKAST 10 MG TAB PO SCH (20:26)
[2018-04-02] MEDS: TAMSULOSIN (SR) 0.4 MG CAP PO SCH (20:26)
[2018-04-02] MEDS: ATORVASTATIN 80 MG TAB PO SCH (20:27)
[2018-04-02] MEDS: CEFTRIAXONE 1 GM/50 ML (PMX) 50 ML IVPB SCH (20:27)
[2018-04-03] VITALS (11 sets, daily range): BP systolic 93–120; BP diastolic 56–65; PULSE 94–110; RESP 18–20
[2018-04-03] MEDS: PANTOPRAZOLE (EC) 40 MG TAB PO SCH (06:46)
[2018-04-03] MEDS: FUROSEMIDE 40 MG TAB PO SCH ×2 (06:46→17:32)
[2018-04-03] MEDS: ALBUTEROL/IPRATROPIUM (NEB) 3 ML AMP HHN SCH ×3 (07:55→19:56)
[2018-04-03] MEDS: BUDESONIDE (NEB) 0.5MG/2ML AMP HHN SCH ×2 (07:55→19:56)
[2018-04-03] MEDS: SACUBITRIL/VALSARTAN (24mg-26mg) TABLET PO SCH ×2 (08:25→20:38)
[2018-04-03] MEDS: METOPROLOL (XL) 50 MG TAB PO SCH ×2 (08:26→20:40)
[2018-04-03] MEDS: SENNA/DOCUSATE NA (8.6MG/50MG) TAB PO SCH (08:26)
[2018-04-03] MEDS: SPIRONOLACTONE 25 MG TAB PO SCH (08:26)
[2018-04-03] MEDS: ASCORBIC ACID 500 MG TAB PO SCH ×2 (08:26→20:38)
[2018-04-03] MEDS: MULTIVITAMINS THERAPEUTIC TAB PO SCH (08:26)
[2018-04-03] MEDS: CHOLECALCIFEROL 2,000 UNIT CAP PO SCH ×2 (08:26→20:39)
[2018-04-03] MEDS: FERROUS GLUCONATE (EC) 325 MG TAB PO SCH ×2 (08:26→20:39)
[2018-04-03] MEDS: ZINC SULFATE 220 MG CAP PO SCH (08:26)
[2018-04-03] MEDS: POTASSIUM CHLORIDE (SR) 20 MEQ TAB PO SCH (08:26)
[2018-04-03] MEDS: TIOTROPIUM 18 MCG CAPSULE INHA DEV INH SCH (08:27)
[2018-04-03] MEDS: GABAPENTIN 100 MG CAP PO SCH ×3 (08:27→20:39)
[2018-04-03] MEDS: NYSTATIN 30 GM POWDER BTL TOP SCH ×2 (08:27→20:41)
[2018-04-03] MEDS: BALSAM PERU/CASTOR OIL 60 GM TUBE TOP SCH (08:28)
[2018-04-03] MEDS: ENOXAPARIN 40 MG/0.4 ML SYG SC SCH (08:51)
[2018-04-03] MEDS: COLLAGENASE 5 GM (UD JAR) TOP SCH (12:02)
[2018-04-03] MEDS: DIGOXIN 0.125 MG TAB PO SCH (12:02)
--- NOTE | 2018-04-03 12:13 | CONS ---
Date/Time of Note Date/Time of Note DATE: 04/03/18 TIME: 12:11 Assessment/Plan Assessment/Plan Additional Assessment/Plan 1. Congestive heart failure exacerbation, systolic, acute on chronic - better fluid satus now. 2. Cardiomyopathy with severely depressed left ventricular ejection fraction with last being approximately 20% - con't fluid optimization. 3. Hypertension- treated now. 4. Dyslipidemia. 5. History of substance abuse - d/c advised. 6. Chronic obstructive pulmonary disease. 7. Bilateral lower extremity amputation and presenting with right stump pain. 8. Questionable history of intracardiac thrombus not seen by most recent echocardiogram dated 01/06/2018, but with severely depressed ejection fraction at that time of 20%. 9. Tobacco intake. 10. SVT-regular recurrent to 160-180. Broke with PO BB. Also questionable WCT right before. Had recurrent SVT o/n 04/01 - in sinus now. Consultation Date/Type/Reason Admit Date/Time Mar 29, 2018 at 07:48 Initial Consult Date Requesting Provider: SUSAN FAULKNER MD 24 HR Interval Summary Free Text/Dictation NO acute events - pt feels better now. ROS: No fever, no chills, no nausea, no vomiting, no diarrhea/constipation No recent weight changes No chest pain, no PND, no orthopnea - chronic SOB. No dizziness, blurred vision No thirst, no heat or cold intolerance Exam/Review of Systems Vital Signs Vitals Vital Signs Date Temp Pulse Resp B/P (MAP) Pulse Ox O2 O2 Flow FiO2 Time Delivery Rate 04/03/18 99 12:08 04/03/18 98.8 18 93/64 (74) 96 11:43 04/02/18 21 21:21 03/30/18 Room Air 15:32 Intake and Output 04/02/18 04/02/18 04/03/18 1515:00 23:00 07:00 IntakeIntake Total 800 ml 450 ml OutputOutput Total 1350 ml 800 ml BalanceBalance -550 ml -350 ml Exam General: WN/WD/NAD, AOx 3 HEENT: Unicetric/atraumatic/EOMI (follow commands) NECK: JVD elevated, no thyromegaly Lymph: no lymphadenopathy HEART: regular with no S3, II/ systolic murmur at apex, PMI L LUNGS: Coarse sounds ABD: soft, NT, ND, +BS : Intact Neuro: non focal SKIN: chronic changes EXT: amputated Medications Medications Current Medications Atorvastatin Calcium (Lipitor) 80 mg QHS PO Last administered on 04/02/18 20:27; Admin Dose 80 MG; Start 03/28/18 at 21:00 Budesonide (Pulmicort (Neb)) 0.5 mg BID RESP THERAPY HHN Last administered on 03/31/18 07:56; Admin Dose 0.5 MG; Start 03/28/18 at 20:00 Ferrous Gluconate (Fergon) 325 mg BID PO Last administered on 04/03/18 08:26; Admin Dose 325 MG; Start 03/28/18 at 21:00 Albuterol/ Ipratropium (Duoneb) 3 ml Q6HWA RESP THERAPY HHN Last administered on 04/02/18 14:16; Admin Dose 3 ML; Start 03/28/18 at 20:00 Montelukast Sodium (Singulair) 10 mg QHS PO Last administered on 04/02/18 20:26; Admin Dose 10 MG; Start 03/28/18 at 21:00 Pantoprazole (Protonix Tab) 40 mg DAILY@06 PO Last administered on 04/03/18at 06:46; Admin Dose 40 MG; Start 03/29/18 at 06:00 Spironolactone (Aldactone) 25 mg DAILY PO Last administered on 04/03/18 08:26; Admin Dose 25 MG; Start 03/29/18 at 09:00 Tamsulosin HCl (Flomax) 0.4 mg HS PO Last administered on 04/02/18 20:26; Admin Dose 0.4 MG; Start 03/28/18 at 21:00 Tiotropium [place] (Spiriva) 1 inh DAILY INH Last administered on 04/03/18 08:27; Admin Dose 1 INH; Start 03/29/18 at 09:00 Albuterol (Proventil 0.083% (Neb)) 2.5 mg Q2H RESP THERAPY PRN HHN SHORTNESS OF BREATH; Start 03/28/18 at 16:30 IV Flush (NS 3 ml) 3 ml PER PROTOCOL IV ; Start 03/28/18 at 16:30 Ondansetron HCl (Zofran Inj) 4 mg Q6H PRN IV NAUSEA AND/OR VOMITING; Start 03/28/18 at 16:30 Nitroglycerin (Nitroglycerin (Sl Tab) 0.4 Mg) 1 tab Q5M PRN SL CHEST PAIN; Start 03/28/18 at 16:30 Acetaminophen (Tylenol Tab) 650 mg Q6H PRN PO PAIN LEVEL 1-3 OR FEVER; Start 03/28/18 at 16:30 Docusate Sodium (Colace) 100 mg Q12H PRN PO CONSTIPATION Last administered on 03/30/18at 20:12; Admin Dose 100 MG; Start 03/28/18 at 16:30 Magnesium Hydroxide (Milk Of Mag) 30 ml DAILY PRN PO CONSTIPATION; Start 03/28/18 at 16:30 Enoxaparin Sodium (Lovenox) 40 mg DAILY SC Last administered on 04/03/18 08:51; Admin Dose 40 MG; Start 03/29/18 at 09:00 Sacubitril/ Valsartan (Entresto 24 Mg-26 Mg) 1 tab BID PO Last administered on 04/03/18 08:25; Admin Dose 1 TAB; Start 03/28/18 at 21:00 Nystatin (Nystatin Powder) 1 applic BID TOP Last administered on 04/03/18 08:27; Admin Dose 1 APPLIC; Start 03/28/18 at 21:00 Cholecalciferol (Vitamin D) 2,000 unit BID PO Last administered on 04/03/18 08:26; Admin Dose 2,000 UNIT; Start 03/28/18 at 21:00 Ceftriaxone Sodium 50 ml @ 100 mls/hr Q24H IVPB Last administered on 04/02/18at 20:27; Admin Dose 100 MLS/HR; Start 03/28/18 at 19:30 Miscellaneous Information [facility] This patient rivera... PRN PRN XX soiled; Start 03/28/18 at 19:00 Potassium Chloride (Klor-Con 20) 40 meq DAILY PO Last administered on 04/03/18 08:26; Admin Dose 40 MEQ; Start 03/29/18 at 06:30 Senna/Docusate Sodium (Senokot-S) 2 tab DAILY PO Last administered on 1 06/04/17 08:26; Admin Dose 2 TAB; Start 03/30/18 at 09:00 Ascorbic Acid (Vitamin C) 500 mg BID PO Last administered on 04/03/18 08:26; Admin Dose 500 MG; Start 03/29/18 at 21:00; Stop 04/12/18 at 20:59 Zinc Sulfate (Zinc Sulfate) 220 mg DAILY PO Last administered on 04/03/18 08:26; Admin Dose 220 MG; Start 03/30/18 at 09:00; Stop 04/13/18 at 08:59 Multivitamins Therapeutic (Theragran) 1 tab DAILY PO Last administered on 04/03/18 08:26; Admin Dose 1 TAB; Start 03/30/18 at 09:00 Gabapentin (Neurontin) 200 mg TID PO Last administered on 04/03/18 12:02; Admin Dose 200 MG; Start 03/30/18 at 13:00 Metoprolol Succinate (Toprol Xl) 50 mg BID PO Last administered on 04/03/18 08:26; Admin Dose 50 MG; Start 03/31/18 at 21:00 Oxycodone HCl (Oxycontin) 20 mg BID PRN PO PAIN LEVEL 6-10 Last administered on 04/02/18at 20:44; Admin Dose 20 MG; Start 03/31/18 at 15:00 Furosemide (Lasix) 40 mg BID DIURETICS PO Last administered on 04/03/18at 06:46; Admin Dose 40 MG; Start 04/01/18 at 18:00 Digoxin (Digoxin) 0.125 mg DAILY@13 PO Last administered on 04/03/18at 12:02; Admin Dose 0.125 MG; Start 04/02/18 at 13:00 Oxycodone/ Acetaminophen (Percocet (5/ 325)) 1 tab Q4H PRN PO MODERATE PAIN LEVEL 4-6 Last administered on 04/02/18at 14:01; Admin Dose 1 TAB; Start 04/02/18 at 14:00 Bisacodyl (Dulcolax) 5 mg DAILY PRN PO CONSTIPATION Last administered on 04/02/18at 18:58; Admin Dose 5 MG; Start 04/02/18 at 18:30 Collagenase (Santyl) 1 applic DAILY TOP Last administered on 04/03/18at 12:02; Admin Dose 1 APPLIC; Start 04/03/18 at 11:00 Results Result Diagram: 04/03/18 0451 04/03/18 0451 Results 24 hrs Laboratory Tests Test 04/02/18 12:40 04/03/18 04:51 Urine Color YELLOW Urine Clarity CLEAR Urine pH 7.0 Urine Specific [place] 1.009 Urine Ketones NEGATIVE Urine Nitrite NEGATIVE Urine Bilirubin NEGATIVE Urine Urobilinogen 2+ H Urine Leukocyte Esterase NEGATIVE Urine Hemoglobin NEGATIVE Urine Glucose NEGATIVE Urine Total Protein NEGATIVE White Blood Count 16.7 H Red Blood Count 5.12 Hemoglobin 12.1 L Hematocrit 38.5 L Mean Corpuscular Volume 75.2 L Mean Corpuscular Hemoglobin 23.6 L Mean Corpuscular Hemoglobin Concent 31.4 L Red Cell Distribution Width 21.2 H Platelet Count 299 Mean Platelet Volume 11.4 H Immature Granulocytes % 0.500 H Neutrophils % 81.5 H Lymphocytes % 7.1 L Monocytes % 10.6 Eosinophils % 0.1 Basophils % 0.2 Nucleated Red Blood Cells % 0.0 Immature Granulocytes # 0.090 H Neutrophils # 13.6 H Lymphocytes # 1.2 Monocytes # 1.8 H Eosinophils # 0.0 Basophils # 0.0 Nucleated Red Blood Cells # 0.0 Sodium Level 132 L Potassium Level 4.3 Chloride Level 93 L Carbon Dioxide Level 28 Anion Gap 11 Blood Urea Nitrogen 23 H Creatinine 0.94 Est Glomerular Filtrat Rate mL/min > 60 Glucose Level 124 Calcium Level 9.0 Phosphorus Level 3.5 Magnesium Level 1.9 PASTORA CUEVAS MD Apr 03, 2018 12:13
--- NOTE | 2018-04-03 13:20 | PN ---
Date/Time of Note Date/Time of Note DATE: 04/03/18 TIME: :18 Objective Vitals Vital Signs Date Temp Pulse Resp B/P (MAP) Pulse Ox O2 O2 Flow FiO2 Time Delivery Rate 04/03/18 99 12:08 04/03/18 98.8 18 93/64 (74) 96 11:43 04/02/18 21 21:21 03/30/18 Room Air 15:32 Intake and Output 04/02/18 04/02/18 04/03/18 1515:00 23:00 07:00 IntakeIntake Total 800 ml 450 ml OutputOutput Total 1350 ml 800 ml BalanceBalance -550 ml -350 ml Results Result Diagram: 04/03/18 0451 04/03/18 0451 Medications Medications Current Medications Atorvastatin Calcium (Lipitor) 80 mg QHS PO Last administered on 04/02/18at 20:27; Admin Dose 80 MG; Start 03/28/18 at 21:00 Budesonide (Pulmicort (Neb)) 0.5 mg BID RESP THERAPY HHN Last administered on 03/31/18at 07:56; Admin Dose 0.5 MG; Start 03/28/18 at 20:00 Ferrous Gluconate (Fergon) 325 mg BID PO Last administered on 04/03/18 08:26; Admin Dose 325 MG; Start 03/28/18 at 21:00 Albuterol/ Ipratropium (Duoneb) 3 ml Q6HWA RESP THERAPY HHN Last administered on 04/02/18at 14:16; Admin Dose 3 ML; Start 03/28/18 at 20:00 Montelukast Sodium (Singulair) 10 mg QHS PO Last administered on 04/02/18at 20:26; Admin Dose 10 MG; Start 03/28/18 at 21:00 Pantoprazole (Protonix Tab) 40 mg DAILY@06 PO Last administered on 04/03/18at 06:46; Admin Dose 40 MG; Start 03/29/18 at 06:00 Spironolactone (Aldactone) 25 mg DAILY PO Last administered on 04/03/18 08:26; Admin Dose 25 MG; Start 03/29/18 at 09:00 Tamsulosin HCl (Flomax) 0.4 mg HS PO Last administered on 04/02/18 20:26; Admin Dose 0.4 MG; Start 03/28/18 at 21:00 Tiotropium [place] (Spiriva) 1 inh DAILY INH Last administered on 04/03/18 08:27; Admin Dose 1 INH; Start 03/29/18 at 09:00 Albuterol (Proventil 0.083% (Neb)) 2.5 mg Q2H RESP THERAPY PRN HHN SHORTNESS OF BREATH; Start 03/28/18 at 16:30 IV Flush (NS 3 ml) 3 ml PER PROTOCOL IV ; Start 03/28/18 at 16:30 Ondansetron HCl (Zofran Inj) 4 mg Q6H PRN IV NAUSEA AND/OR VOMITING; Start 03/28/18 at 16:30 Nitroglycerin (Nitroglycerin (Sl Tab) 0.4 Mg) 1 tab Q5M PRN SL CHEST PAIN; Start 03/28/18 at 16:30 Acetaminophen (Tylenol Tab) 650 mg Q6H PRN PO PAIN LEVEL 1-3 OR FEVER; Start 03/28/18 at 16:30 Docusate Sodium (Colace) 100 mg Q12H PRN PO CONSTIPATION Last administered on 03/30/18at 20:12; Admin Dose 100 MG; Start 03/28/18 at 16:30 Magnesium Hydroxide (Milk Of Mag) 30 ml DAILY PRN PO CONSTIPATION; Start 03/28/18 at 16:30 Enoxaparin Sodium (Lovenox) 40 mg DAILY SC Last administered on 04/03/18at 08:51; Admin Dose 40 MG; Start 03/29/18 at 09:00 Sacubitril/ Valsartan (Entresto 24 Mg-26 Mg) 1 tab BID PO Last administered on 04/03/18 08:25; Admin Dose 1 TAB; Start 03/28/18 at 21:00 Nystatin (Nystatin Powder) 1 applic BID TOP Last administered on 04/03/18 08:27; Admin Dose 1 APPLIC; Start 03/28/18 at 21:00 Cholecalciferol (Vitamin D) 2,000 unit BID PO Last administered on 04/03/18 08:26; Admin Dose 2,000 UNIT; Start 03/28/18 at 21:00 Ceftriaxone Sodium 50 ml @ 100 mls/hr Q24H IVPB Last administered on 04/02/18 20:27; Admin Dose 100 MLS/HR; Start 03/28/18 at 19:30 Miscellaneous Information (Pending [facility] Order For Wound Care) This patient rivera... PRN PRN XX soiled; Start 03/28/18 at 19:00 Potassium Chloride (Klor-Con 20) 40 meq DAILY PO Last administered on 04/03 08:26; Admin Dose 40 MEQ; Start 03/29/18 at 06:30 Senna/Docusate Sodium (Senokot-S) 2 tab DAILY PO Last administered on 04/03/18 08:26; Admin Dose 2 TAB; Start 03/30/18 at 09:00 Ascorbic Acid (Vitamin C) 500 mg BID PO Last administered on 04/03/18 08:26; Admin Dose 500 MG; Start 03/29/18 at 21:00; Stop 04/12/18 at 20:59 Zinc Sulfate (Zinc Sulfate) 220 mg DAILY PO Last administered on 04/03/18 08:26; Admin Dose 220 MG; Start 03/30/18 at 09:00; Stop 04/13/18 at 08:59 Multivitamins Therapeutic (Theragran) 1 tab DAILY PO Last administered on 04/03/18 08:26; Admin Dose 1 TAB; Start 03/30/18 at 09:00 Gabapentin (Neurontin) 200 mg TID PO Last administered on 04/03/18 12:02; Admin Dose 200 MG; Start 03/30/18 at 13:00 Metoprolol Succinate (Toprol Xl) 50 mg BID PO Last administered on 04/03/18 08:26; Admin Dose 50 MG; Start 03/31/18 at 21:00 Oxycodone HCl (Oxycontin) 20 mg BID PRN PO PAIN LEVEL 6-10 Last administered on 04/02/18at 20:44; Admin Dose 20 MG; Start 03/31/18 at 15:00 Furosemide (Lasix) 40 mg BID DIURETICS PO Last administered on 04/03/18 06:46; Admin Dose 40 MG; Start 04/01/18 at 18:00 Digoxin (Digoxin) 0.125 mg DAILY@13 PO Last administered on 04/03/18 12:02; Admin Dose 0.125 MG; Start 04/02/18 at 13:00 Oxycodone/ Acetaminophen (Percocet (5/ 325)) 1 tab Q4H PRN PO MODERATE PAIN LEVEL 4-6 Last administered on 04/02/18at 14:01; Admin Dose 1 TAB; Start 04/02/18 at 14:00 Bisacodyl (Dulcolax) 5 mg DAILY PRN PO CONSTIPATION Last administered on 04/02/18at 18:58; Admin Dose 5 MG; Start 04/02/18 at 18:30 Collagenase (Santyl) 1 applic DAILY TOP Last administered on 04/03/18at 12:02; Admin Dose 1 APPLIC; Start 04/03/18 at 11:00 VTE Prophylaxis Risk score (from Ns)>0 risk: 6 SCD applied (from [facility]): No SCD contraindication: other Lines/Catheters IV Catheter Type: Delatorre in Place: No Assessment/Plan Hospital Course Subjective No new acute complaints Objective Physical exam General: Patient is laying in bed and answers questions appropriately Mentation: Patient is alert and oriented 4, Head: Normocephalic atraumatic Eyes: EOMI, pupils reactive to light Neck: Supple, nontender, midline Respiratory: Clear to auscultation bilaterally Cardiovascular: regular rate, no obvious murmurs Gastrointestinal: non-tender to palpation, bowel sounds heard. Neurological: Moves all extremities spontaneously Musculoskeletal: Bilateral AKA Assessment/Plan 1. Acute pain in right thigh s/p b/l amputations - Pain management adjusted medications to PRN yesterday. Will monitor for excess sedation and decrease dose if needed - LE US negative for DVT. 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 Discussed with vascular, Dr. Rodríguez, who said it was chronic and will need to follow up with outpatient clinic at [facility] since RLE amputation was performed there. - PT/OT on board leukocytosis -mild elevation, no true signs of infection -abx already on for multiple days, but will order repeat UA and cultures. -ID consulted 2. Acute on chronic systolic heart failure- improving - Diuresing well and shortness of breath has resolved - Cardiology consultation placed and appreciate recommendations. - Echo results noted from prior admission with EF 20% - BNP noted 3. Wounds on elbows and sacrum - wound consultation appreciated 4. CAD - continue all home medications - stable 5. b/l AKA secondary PVD - PT/OT consultation appreciated 6. Episode of sustained vtach- resolved - BB continues to be adjusted. still with tachycardia. Will need better HR control prior to d/c home 7. Disposition - Continue titrating pain medications for better control and less sedation. still with tachycardia and needs better HR control prior to d/c home. -wbc needs to come down ZACH SIMON Apr 03, 2018 13:20
--- NOTE | 2018-04-03 14:13 | CONS ---
DATE OF ADMISSION: 03/29/2018 DATE OF CONSULTATION: 04/03/2018 TYPE OF CONSULTATION: Infectious disease. REASON FOR CONSULTATION: Antibiotic management. HISTORY OF PRESENT ILLNESS: Tyrone Solorio is a 62-year-old male with numerous problems who comes in wi th worsening right thigh pain and is being seen for antibiotic management. Past problems include: 1. Systolic congestive heart failure with coronary artery disease. 2. Chronic obstructive pulmonary disease. 3. Status post bilateral AKAs secondary to peripheral vascular disease. He presents to the Emergenc y Room with worsening pain in the right thigh and has been experiencing pain for 5 days prior to admi ssion on the . He admits to trying cocaine, marijuana and alcohol for pain relief, but no improv ement. He denies trauma to the area, also admits to misplacing his Lasix bottle and not taking his m edication for 2 days. He is short of breath but does not have chest pain, palpitations, wheezing or dizziness. He is concerned about noted damage around his groin as well. He lives alone but has good family support. On admission, his white count was 13.6, H and H of 12.5 and 41.1, platelet count 39 3,000. BUN and creatinine 25/0.95, glucose of 113. PAST MEDICAL HISTORY: Operations as outlined. History of deep vein thrombophlebitis. FAMILY HISTORY: Noncontributory. SOCIAL HISTORY: He uses cocaine and marijuana. He is an everyday smoker. He has occasional alcohol . ALLERGIES: TETRACYCLINE. He develops a rash. MEDICATIONS: Per chart. REVIEW OF SYSTEMS: Noncontributory. HOSPITAL COURSE: The patient had sustained V-tach on the , given an a.m. dose of DB and Entresto . The patient was also given digoxin. His acute thigh pain, pain management consultation was made. Patient has a failed had a failed left groin graft. He has acute on chronic systolic heart failure, wounds on his elbows and sacrum. On the , he was seen by Dr. Haines. The patient has a white coun t of 17.8, H and H of 12.1 and 37.9, platelet count of 322,000. BUN and creatinine 22/1.10. IMPRESSION AND PLAN: Currently the patient is on ceftriaxone. We should repeat a chest x-ray which showed right pleural effusion, right lower lobe atelectasis and continue him on current therapy. I w ill dictate my findings to the hospitalist. Dictated By: JUDAH LOJA MD, JD/KIM Conf#: [id number] DID#: [id number] CC: SUSAN FAULKNER MD;*EndCC*
[2018-04-03] MEDS: oxyCODONE (CR) 20 MG TAB [oxyCONTIN] PO PRN (16:10)
[2018-04-03] MEDS: BISACODYL (EC) 5 MG TAB PO PRN (17:31)
[2018-04-03] MEDS: TAMSULOSIN (SR) 0.4 MG CAP PO SCH (20:38)
[2018-04-03] MEDS: ATORVASTATIN 80 MG TAB PO SCH (20:39)
[2018-04-03] MEDS: MONTELUKAST 10 MG TAB PO SCH (20:39)
[2018-04-03] MEDS: CEFTRIAXONE 1 GM/50 ML (PMX) 50 ML IVPB SCH (20:41)
[2018-04-04] VITALS (11 sets, daily range): BP systolic 96–133; BP diastolic 53–62; PULSE 91–119; RESP 18–20
[2018-04-04] MEDS: FUROSEMIDE 40 MG TAB PO SCH ×2 (05:55→17:03)
[2018-04-04] MEDS: PANTOPRAZOLE (EC) 40 MG TAB PO SCH (05:55)
[2018-04-04] MEDS: ALBUTEROL/IPRATROPIUM (NEB) 3 ML AMP HHN SCH ×3 (07:41→20:00)
[2018-04-04] MEDS: BUDESONIDE (NEB) 0.5MG/2ML AMP HHN SCH ×2 (08:06→20:00)
[2018-04-04] MEDS: oxyCODONE (CR) 20 MG TAB [oxyCONTIN] PO PRN (08:26)
[2018-04-04] MEDS: POTASSIUM CHLORIDE (SR) 20 MEQ TAB PO SCH (08:26)
[2018-04-04] MEDS: MULTIVITAMINS THERAPEUTIC TAB PO SCH (08:26)
[2018-04-04] MEDS: GABAPENTIN 100 MG CAP PO SCH ×3 (08:26→21:57)
[2018-04-04] MEDS: SENNA/DOCUSATE NA (8.6MG/50MG) TAB PO SCH (08:26)
[2018-04-04] MEDS: TIOTROPIUM 18 MCG CAPSULE INHA DEV INH SCH (08:27)
[2018-04-04] MEDS: ZINC SULFATE 220 MG CAP PO SCH (08:27)
[2018-04-04] MEDS: CHOLECALCIFEROL 2,000 UNIT CAP PO SCH ×2 (08:27→21:58)
[2018-04-04] MEDS: ASCORBIC ACID 500 MG TAB PO SCH ×2 (08:27→21:58)
[2018-04-04] MEDS: SACUBITRIL/VALSARTAN (24mg-26mg) TABLET PO SCH ×2 (08:32→21:00)
[2018-04-04] MEDS: SPIRONOLACTONE 25 MG TAB PO SCH (08:32)
[2018-04-04] MEDS: NYSTATIN 30 GM POWDER BTL TOP SCH ×2 (08:33→22:08)
[2018-04-04] MEDS: METOPROLOL (XL) 50 MG TAB PO SCH ×2 (08:33→21:00)
[2018-04-04] MEDS: FERROUS GLUCONATE (EC) 325 MG TAB PO SCH ×2 (08:33→21:57)
[2018-04-04] MEDS: COLLAGENASE 5 GM (UD JAR) TOP SCH (08:33)
[2018-04-04] MEDS: ENOXAPARIN 40 MG/0.4 ML SYG SC SCH (08:41)
--- NOTE | 2018-04-04 12:12 | CONS ---
Date/Time of Note Date/Time of Note DATE: 04/04/18 TIME: 12:10 Assessment/Plan Assessment/Plan Chief Complaint/Hosp Course IMPRESSION: 1. Congestive heart failure exacerbation, systolic, acute on chronic. 2. Cardiomyopathy with severely depressed left ventricular ejection fraction with last being approximately 20%. 3. Hypertension. 4. Dyslipidemia. 5. History of substance abuse. 6. Chronic obstructive pulmonary disease. 7. Bilateral lower extremity amputation and presenting with right stump pain. 8. Questionable history of intracardiac thrombus not seen by most recent echocardiogram dated 01/06/2018, but with severely depressed ejection fraction at that time of 20%. 9. Tobacco intake. 10. SVT-regular recurrent to 160-180. Broke with PO BB. Also questionable WCT right before. Had recurrent SVT o/n 04/01 Recc: -Tele -serial ecg's -Continue entresto -Continue BB -Continue aldactone -decrease lasix to 40 po daily -Continue bronchodilators/abx's and f/u cx data -Continue po digoxin and given additional IVP dose -pain control Consultation Date/Type/Reason Admit Date/Time Mar 29, 2018 at 07:48 Initial Consult Date 03/29/18 Type of Consult cardiology Reason for Consultation CHF Requesting Provider: SUSAN FAULKNER MD Exam/Review of Systems Vital Signs Vitals Vital Signs Date Temp Pulse Resp B/P (MAP) Pulse Ox O2 O2 Flow FiO2 Time Delivery Rate 04/04/18 Room Air 12:06 04/04/18 98.3 110 133/62 99 11:00 (85) 04/04/18 18 21 07:51 Intake and Output 04/03/18 04/03/18 04/04/18 1414:59 22:59 06:59 IntakeIntake Total 640 ml 450 ml OutputOutput Total 1000 ml 1200 ml BalanceBalance -360 ml -750 ml Exam Review of Systems: CONSTITUTIONAL: No fevers, chills. PULMONARY: No sob CARDIOVASCULAR: No chest pain/palpitations GASTROINTESTINAL: No nausea/vomiting. GENITOURINARY: No hematuria/dysuria. MUSCULOSKELETAL: No myagias/arthalgias. PSYCHIATRIC: The patient denies depression. NEUROLOGIC: No weakness Constitutional: alert Psych: no complaints Head: normocephalic ENMT: mucosa pink and moist Neck: supple, jvd (9 cm water) Respiratory: diminished breath sounds (at bases/B) Cardiovascular: other (tachycardic, regular rhythm) Gastrointestinal: soft, non-tender Musculoskeletal: muscle tone (normal) Extremities: edema (none) Neurological: other (No focal deficits) VIVIAN PRINCE Apr 04, 2018 12:12
[2018-04-04] MEDS ORDERED: DIGOXIN 500 MCG INJ IV ONE (12:30)
[2018-04-04] MEDS: DIGOXIN 0.125 MG TAB PO SCH (12:41)
[2018-04-04] MEDS: OXYCODONE/ACETAMINOPHEN (5/325) TAB PO PRN ×3 (12:41→22:00)
--- NOTE | 2018-04-04 14:42 | PN ---
Date/Time of Note Date/Time of Note DATE: 04/04/18 TIME: 14:39 Objective Vitals Vital Signs Date Temp Pulse Resp B/P (MAP) Pulse Ox O2 O2 Flow FiO2 Time Delivery Rate 04/04/18 73 18 98 21 13:48 04/04/18 Room Air 12:06 04/04/18 98.3 133/62 11:00 (85) Intake and Output 04/03/18 04/03/18 04/04/18 1515:00 23:00 07:00 IntakeIntake Total 640 ml 450 ml OutputOutput Total 1000 ml 1200 ml BalanceBalance -360 ml -750 ml Results Result Diagram: 04/04/18 0505 04/04/18 0505 Medications Medications Current Medications Atorvastatin Calcium (Lipitor) 80 mg QHS PO Last administered on 04/03/18at 20:39; Admin Dose 80 MG; Start 03/28/18 at 21:00 Budesonide (Pulmicort (Neb)) 0.5 mg BID RESP THERAPY HHN Last administered on 04/03/18at 19:56; Admin Dose 0.5 MG; Start 03/28/18 at 20:00 Ferrous Gluconate (Fergon) 325 mg BID PO Last administered on 04/04/18at 08:33; Admin Dose 325 MG; Start 03/28/18 at 21:00 Albuterol/ Ipratropium (Duoneb) 3 ml Q6HWA RESP THERAPY HHN Last administered on 04/04/18at 13:39; Admin Dose 3 ML; Start 03/28/18 at 20:00 Montelukast Sodium (Singulair) 10 mg QHS PO Last administered on 04/03/18at 20:39; Admin Dose 10 MG; Start 03/28/18 at 21:00 Pantoprazole (Protonix Tab) 40 mg DAILY@06 PO Last administered on 04/04/18at 05:55; Admin Dose 40 MG; Start 03/29/18 at 06:00 Spironolactone (Aldactone) 25 mg DAILY PO Last administered on 04/04/18at 08 :32; Admin Dose 25 MG; Start 03/29/18 at 09:00 Tamsulosin HCl (Flomax) 0.4 mg HS PO Last administered on 04/03/18at 20:38; Admin Dose 0.4 MG; Start 03/28/18 at 21:00 Tiotropium [place] (Spiriva) 1 inh DAILY INH Last administered on 04/04/18at 08:27; Admin Dose 1 INH; Start 03/29/18 at 09:00 Albuterol (Proventil 0.083% (Neb)) 2.5 mg Q2H RESP THERAPY PRN HHN SHORTNESS OF BREATH; Start 03/28/18 at 16:30 IV Flush (NS 3 ml) 3 ml PER PROTOCOL IV ; Start 03/28/18 at 16:30 Ondansetron HCl (Zofran Inj) 4 mg Q6H PRN IV NAUSEA AND/OR VOMITING; Start 03/28/18 at 16:30 Nitroglycerin (Nitroglycerin (Sl Tab) 0.4 Mg) 1 tab Q5M PRN SL CHEST PAIN; Start 03/28/18 at 16:30 Acetaminophen (Tylenol Tab) 650 mg Q6H PRN PO PAIN LEVEL 1-3 OR FEVER; Start 03/28/18 at 16:30 Docusate Sodium (Colace) 100 mg Q12H PRN PO CONSTIPATION Last administered on 03/30/18at 20:12; Admin Dose 100 MG; Start 03/28/18 at 16:30 Magnesium Hydroxide (Milk Of Mag) 30 ml DAILY PRN PO CONSTIPATION; Start 03/28/18 at 16:30 Enoxaparin Sodium (Lovenox) 40 mg DAILY SC Last administered on 04/04/18at 08:41; Admin Dose 40 MG; Start 03/29/18 at 09:00 Sacubitril/ Valsartan (Entresto 24 Mg-26 Mg) 1 tab BID PO Last administered on 04/04/18at 08:32; Admin Dose 1 TAB; Start 03/28/18 at 21:00 Nystatin (Nystatin Powder) 1 applic BID TOP Last administered on 04/04/18at 08:33; Admin Dose 1 APPLIC; Start 03/28/18 at 21:00 Cholecalciferol (Vitamin D) 2,000 unit BID PO Last administered on 04/04/18at 08:27; Admin Dose 2,000 UNIT; Start 03/28/18 at 21:00 Miscellaneous Information (Pending [facility] Order For Wound Care) This patient rivera... PRN PRN XX soiled; Start 03/28/18 at 19:00 Potassium Chloride (Klor-Con 20) 40 meq DAILY PO Last administered on 04/04/18 08:26; Admin Dose 40 MEQ; Start 03/29/18 at 06:30 Senna/Docusate Sodium (Senokot-S) 2 tab DAILY PO Last administered on 04/04/18 08:26; Admin Dose 2 TAB; Start 03/30/18 at 09:00 Ascorbic Acid (Vitamin C) 500 mg BID PO Last administered on 04/04/18 08:27; Admin Dose 500 MG; Start 03/29/18 at 21:00; Stop 04/12/18 at 20:59 Zinc Sulfate (Zinc Sulfate) 220 mg DAILY PO Last administered on 04/04/18 08:27; Admin Dose 220 MG; Start 03/30/18 at 09:00; Stop 04/13/18 at 08:59 Multivitamins Therapeutic (Theragran) 1 tab DAILY PO Last administered on 04/04/18 08:26; Admin Dose 1 TAB; Start 03/30/18 at 09:00 Gabapentin (Neurontin) 200 mg TID PO Last administered on 04/04/18 12:39; Admin Dose 200 MG; Start 03/30/18 at 13:00 Metoprolol Succinate (Toprol Xl) 50 mg BID PO Last administered on 04/04/18 08:33; Admin Dose 50 MG; Start 03/31/18 at 21:00 Oxycodone HCl (Oxycontin) 20 mg BID PRN PO PAIN LEVEL 6-10 Last administered on 04/04/18 08:26; Admin Dose 20 MG; Start 03/31/18 at 15:00 Furosemide (Lasix) 40 mg BID DIURETICS PO Last administered on 04/04/18 05:55; Admin Dose 40 MG; Start 04/01/18 at 18:00 Digoxin (Digoxin) 0.125 mg DAILY@13 PO Last administered on 04/04/18 12:41; Admin Dose 0.125 MG; Start 04/02/18 at 13:00 Oxycodone/ Acetaminophen (Percocet (5/ 325)) 1 tab Q4H PRN PO MODERATE PAIN LEVEL 4-6 Last administered on 04/04/18 12:41; Admin Dose 1 TAB; Start 04/02/18 at 14:00 Bisacodyl (Dulcolax) 5 mg DAILY PRN PO CONSTIPATION Last administered on 04/03/18at 17:31; Admin Dose 5 MG; Start 04/02/18 at 18:30 Collagenase (Santyl) 1 applic DAILY TOP Last administered on 04/03/18at 12:02; Admin Dose 1 APPLIC; Start 04/03/18 at 11:00 Ceftriaxone Sodium 50 ml @ 100 mls/hr Q24H IVPB ; Start 04/04/18 at 20:00 VTE Prophylaxis Risk score (from Ns)>0 risk: 6 SCD applied (from [facility]): No SCD contraindication: other Lines/Catheters IV Catheter Type: Delatorre in Place: No Assessment/Plan Hospital Course Subjective No new acute complaints, continued arm fatigue Objective Physical exam General: Patient is laying in bed and answers questions appropriately Mentation: Patient is alert and oriented 4, Head: Normocephalic atraumatic Eyes: EOMI, pupils reactive to light Neck: Supple, nontender, midline Respiratory: Clear to auscultation bilaterally Cardiovascular: regular rate, no obvious murmurs Gastrointestinal: non-tender to palpation, bowel sounds heard. Neurological: Moves all extremities spontaneously Musculoskeletal: Bilateral AKA Assessment/Plan 1. Acute pain in right thigh s/p b/l amputations - Pain management adjusted medications to PRN yesterday. Will monitor for excess sedation and decrease dose if needed - LE US negative for DVT. 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 Discussed with vascular, Dr. Rodríguez, who said it was chronic and will need to follow up with outpatient clinic at [facility] since RLE amputation was performed there. - PT/OT on board leukocytosis -mild elevation, no true signs of infection -abx already on for multiple days, but will order repeat UA and cultures. -ID consulted 2. Acute on chronic systolic heart failure- improving - Diuresing well and shortness of breath has resolved - Cardiology consultation placed and appreciate recommendations. - Echo results noted from prior admission with EF 20% - BNP noted 3. Wounds on elbows and sacrum - wound consultation appreciated 4. CAD - continue all home medications - stable 5. b/l AKA secondary PVD - PT/OT consultation appreciated 6. Episode of sustained vtach- resolved - BB continues to be adjusted. still with tachycardia. Will need better HR control prior to d/c home 7. Disposition - Continue titrating pain medications for better control and less sedation. still with tachycardia and needs better HR control prior to d/c home. - wbc is slowly discharging -patient more fatigued, will attempt to look for snf ZACH SIMON Apr 04, 2018 14:42
[2018-04-04] MEDS: DOCUSATE SODIUM 100 MG CAP PO PRN (17:07)
[2018-04-04] MEDS: BISACODYL (EC) 5 MG TAB PO PRN (17:07)
--- NOTE | 2018-04-04 17:16 | CONS ---
Date/Time of Note Date/Time of Note DATE: 04/04/18 TIME: 17:16 Assessment/Plan Assessment/Plan Chief Complaint/Hosp Course Patient is sleeping status post pain medication he is in no distress afebrile. WBC today 16 H&H 12 and 37.5 platelets 289 neutrophils 79.1 BUN 27 creatinine 0.96 Microbiology: Blood culture since admission negative Chest x-ray this morning revealed resolved right lower lobe infiltrate Antimicrobials: Rocephin Physical examination: Well-nourished well-developed elderly -[place] man who is in no distress. Head atraumatic normocephalic neck is supple chest rise symmetrical breath sounds diminished bases. Heart: S1-S2. Abdomen soft bowel sounds present. Extremities without cyanosis patient has bilateral above-knee amputation. Skin: Patient has multiple pressure sores Assessment: 1. Persistent leukocytosis 2. Recurrent CHF 3. COPD 4. Substance abuse 5. Multiple wounds and pressure sores 6. History of methicillin-resistant Staphylococcus aureus infected graft, status post debridement back in 06/2017, per patient, the rest of the graft was removed at [facility], he completed IV vancomycin back in January 7. History of CABG 8. Diabetes 9. History of PA Plan: Patient is clinically stable we will add vancomycin to the regimen, check urine culture, swab nares for MRSA, check pro-calcitonin level Consultation Date/Type/Reason Admit Date/Time Mar 29, 2018 at 07:48 Initial Consult Date Type of Consult ID Requesting Provider: SUSAN FAULKNER MD Exam/Review of Systems Vital Signs Vitals Vital Signs Date Temp Pulse Resp B/P (MAP) Pulse Ox O2 O2 Flow FiO2 Time Delivery Rate 04/04/18 Room Air 16:24 04/04/18 102 16:01 04/04/18 98.3 18 107/56 96 15:25 (73) 04/04/18 21 13:48 Intake and Output 04/03/18 04/03/18 04/04/18 1515:00 23:00 07:00 IntakeIntake Total 640 ml 450 ml OutputOutput Total 1000 ml 1200 ml BalanceBalance -360 ml -750 ml NAYELI MADERA NP Apr 04, 2018 17:16
[2018-04-04] MEDS ORDERED: VANCOMYCIN IV PER PHARMACY XX SCH (17:30)
[2018-04-04] MEDS ORDERED: VANCOMYCIN 1.5 GM in SOD CHLORIDE 0.9% 250 ML IVPB SCH ×2 (18:30→20:00)
[2018-04-04] MEDS: CEFTRIAXONE 1 GM/50 ML (PMX) 50 ML IVPB SCH (21:56)
[2018-04-04] MEDS: TAMSULOSIN (SR) 0.4 MG CAP PO SCH (21:57)
[2018-04-04] MEDS: MONTELUKAST 10 MG TAB PO SCH (21:57)
[2018-04-04] MEDS: ATORVASTATIN 80 MG TAB PO SCH (21:57)
[2018-04-05] VITALS (11 sets, daily range): BP systolic 99–110; BP diastolic 58–69; PULSE 64–115; RESP 19–20
[2018-04-05] MEDS: PANTOPRAZOLE (EC) 40 MG TAB PO SCH (05:04)
[2018-04-05] MEDS: OXYCODONE/ACETAMINOPHEN (5/325) TAB PO PRN ×3 (05:05→14:37)
[2018-04-05] MEDS: MAGNESIUM HYDROXIDE 30ML CUP PO PRN (05:05)
[2018-04-05] MEDS: FUROSEMIDE 40 MG TAB PO SCH (05:05)
[2018-04-05] MEDS: MULTIVITAMINS THERAPEUTIC TAB PO SCH (08:21)
[2018-04-05] MEDS: COLLAGENASE 5 GM (UD JAR) TOP SCH (08:21)
[2018-04-05] MEDS: POTASSIUM CHLORIDE (SR) 20 MEQ TAB PO SCH (08:21)
[2018-04-05] MEDS: ZINC SULFATE 220 MG CAP PO SCH (08:22)
[2018-04-05] MEDS: ASCORBIC ACID 500 MG TAB PO SCH ×2 (08:22→20:25)
[2018-04-05] MEDS: FERROUS GLUCONATE (EC) 325 MG TAB PO SCH ×2 (08:23→20:24)
[2018-04-05] MEDS: SPIRONOLACTONE 25 MG TAB PO SCH (08:23)
[2018-04-05] MEDS: GABAPENTIN 100 MG CAP PO SCH ×3 (08:23→20:24)
[2018-04-05] MEDS: CHOLECALCIFEROL 2,000 UNIT CAP PO SCH ×2 (08:23→20:24)
[2018-04-05] MEDS: METOPROLOL (XL) 50 MG TAB PO SCH ×2 (08:24→20:25)
[2018-04-05] MEDS: TIOTROPIUM 18 MCG CAPSULE INHA DEV INH SCH (08:24)
[2018-04-05] MEDS: SACUBITRIL/VALSARTAN (24mg-26mg) TABLET PO SCH ×2 (08:24→20:24)
[2018-04-05] MEDS: ENOXAPARIN 40 MG/0.4 ML SYG SC SCH (08:31)
[2018-04-05] MEDS: SENNA/DOCUSATE NA (8.6MG/50MG) TAB PO SCH (08:38)
[2018-04-05] MEDS: oxyCODONE (CR) 20 MG TAB [oxyCONTIN] PO PRN ×2 (08:40→20:35)
[2018-04-05] MEDS: NYSTATIN 30 GM POWDER BTL TOP SCH ×2 (08:41→20:26)
[2018-04-05] MEDS: BUDESONIDE (NEB) 0.5MG/2ML AMP HHN SCH ×2 (08:43→19:48)
[2018-04-05] MEDS: ALBUTEROL/IPRATROPIUM (NEB) 3 ML AMP HHN SCH ×3 (08:43→19:48)
--- NOTE | 2018-04-05 12:54 | CONS ---
Date/Time of Note Date/Time of Note DATE: 04/05/18 TIME: 12:51 Assessment/Plan Assessment/Plan Chief Complaint/Hosp Course IMPRESSION: 1. Congestive heart failure exacerbation, systolic, acute on chronic. 2. Cardiomyopathy with severely depressed left ventricular ejection fraction with last being approximately 20%. 3. Hypertension. 4. Dyslipidemia. 5. History of substance abuse. 6. Chronic obstructive pulmonary disease. 7. Bilateral lower extremity amputation and presenting with right stump pain. 8. Questionable history of intracardiac thrombus not seen by most recent echocardiogram dated 01/06/2018, but with severely depressed ejection fraction at that time of 20%. 9. Tobacco intake. 10. SVT-regular recurrent to 160-180. Broke with PO BB. Also questionable WCT right before. Had recurrent SVT o/n 04/01 Recc: -Tele -serial ecg's -Continue entresto -Continue BB -Continue aldactone -decrease lasix to 40 po daily -Continue bronchodilators/abx's and f/u cx data -Continue po digoxin -pain control Consultation Date/Type/Reason Admit Date/Time Mar 29, 2018 at 07:48 Initial Consult Date 03/29/18 Type of Consult cardiology Reason for Consultation CHF Requesting Provider: SUSAN FAULKNER MD Exam/Review of Systems Vital Signs Vitals Vital Signs Date Temp Pulse Resp B/P (MAP) Pulse Ox O2 O2 Flow FiO2 Time Delivery Rate 04/05/18 112 12:02 04/05/18 98.0 19 106/68 100 Room Air 10:56 (81) 04/05/18 21 08:40 Intake and Output 04/04/18 04/04/18 04/05/18 1515:00 23:00 07:00 IntakeIntake Total 600 ml 500 ml OutputOutput Total 1500 ml 1400 ml BalanceBalance -900 ml -900 ml Exam Review of Systems: CONSTITUTIONAL: No fevers, chills. PULMONARY: No sob CARDIOVASCULAR: No chest pain/palpitations GASTROINTESTINAL: No nausea/vomiting. GENITOURINARY: No hematuria/dysuria. MUSCULOSKELETAL: No myagias/arthalgias. PSYCHIATRIC: The patient denies depression. NEUROLOGIC: No weakness Constitutional: alert Psych: no complaints Head: normocephalic ENMT: mucosa pink and moist Neck: supple, jvd (9 cm water) Respiratory: diminished breath sounds Cardiovascular: regular rate and rhythm Gastrointestinal: soft, non-tender Musculoskeletal: muscle tone (normal) Extremities: edema (trace/B) Neurological: other (No focal deficits) VIVIAN PRINCE Apr 05, 2018 12:54
[2018-04-05] MEDS: DIGOXIN 0.125 MG TAB PO SCH (14:41)
--- NOTE | 2018-04-05 16:11 | PN ---
Date/Time of Note Date/Time of Note DATE: 04/05/18 TIME: 16:10 Objective Vitals Vital Signs Date Temp Pulse Resp B/P (MAP) Pulse Ox O2 O2 Flow FiO2 Time Delivery Rate 04/05/18 96 16:05 04/05/18 98.0 20 102/58 97 Room Air 15:35 (73) 04/05/18 21 08:40 Intake and Output 04/04/18 04/04/18 04/05/18 1515:00 23:00 07:00 IntakeIntake Total 600 ml 500 ml OutputOutput Total 1500 ml 1400 ml BalanceBalance -900 ml -900 ml Results Result Diagram: 04/05/18 0455 04/05/18 1102 Medications Medications Current Medications Atorvastatin Calcium (Lipitor) 80 mg QHS PO Last administered on 04/04/18 21:57; Admin Dose 80 MG; Start 03/28/18 at 21:00 Budesonide (Pulmicort (Neb)) 0.5 mg BID RESP THERAPY HHN Last administered on 04/05/18 08:43; Admin Dose 0.5 MG; Start 03/28/18 at 20:00 Ferrous Gluconate (Fergon) 325 mg BID PO Last administered on 04/05/18 08:23; Admin Dose 325 MG; Start 03/28/18 at 21:00 Albuterol/ Ipratropium (Duoneb) 3 ml Q6HWA RESP THERAPY HHN Last administered on 04/05/18 08:43; Admin Dose 3 ML; Start 03/28/18 at 20:00 Montelukast Sodium (Singulair) 10 mg QHS PO Last administered on 04/04/18 21:57; Admin Dose 10 MG; Start 03/28/18 at 21:00 Pantoprazole (Protonix Tab) 40 mg DAILY@06 PO Last administered on 04/05/18 05:04; Admin Dose 40 MG; Start 03/29/18 at 06:00 Spironolactone (Aldactone) 25 mg DAILY PO Last administered on 04/05/18 08 :23; Admin Dose 25 MG; Start 03/29/18 at 09:00 Tamsulosin HCl (Flomax) 0.4 mg HS PO Last administered on 04/04/18 21:57; Admin Dose 0.4 MG; Start 03/28/18 at 21:00 Tiotropium [place] (Spiriva) 1 inh DAILY INH Last administered on 04/05/18at 08:24; Admin Dose 1 INH; Start 03/29/18 at 09:00 Albuterol (Proventil 0.083% (Neb)) 2.5 mg Q2H RESP THERAPY PRN HHN SHORTNESS OF BREATH; Start 03/28/18 at 16:30 IV Flush (NS 3 ml) 3 ml PER PROTOCOL IV ; Start 03/28/18 at 16:30 Ondansetron HCl (Zofran Inj) 4 mg Q6H PRN IV NAUSEA AND/OR VOMITING; Start 03/28/18 at 16:30 Nitroglycerin (Nitroglycerin (Sl Tab) 0.4 Mg) 1 tab Q5M PRN SL CHEST PAIN; Start 03/28/18 at 16:30 Acetaminophen (Tylenol Tab) 650 mg Q6H PRN PO PAIN LEVEL 1-3 OR FEVER; Start 03/28/18 at 16:30 Docusate Sodium (Colace) 100 mg Q12H PRN PO CONSTIPATION Last administered on 04/04/18at 17:07; Admin Dose 100 MG; Start 03/28/18 at 16:30 Magnesium Hydroxide (Milk Of Mag) 30 ml DAILY PRN PO CONSTIPATION Last administered on 04/05/18at 05:05; Admin Dose 30 ML; Start 03/28/18 at 16:30 Enoxaparin Sodium (Lovenox) 40 mg DAILY SC Last administered on 04/05/18at 08:31; Admin Dose 40 MG; Start 03/29/18 at 09:00 Sacubitril/ Valsartan (Entresto 24 Mg-26 Mg) 1 tab BID PO Last administered on 04/05/18at 08:24; Admin Dose 1 TAB; Start 03/28/18 at 21:00 Nystatin (Nystatin Powder) 1 applic BID TOP Last administered on 04/05/18at 08:41; Admin Dose 1 APPLIC; Start 03/28/18 at 21:00 Cholecalciferol (Vitamin D) 2,000 unit BID PO Last administered on 04/05/18at 08:23; Admin Dose 2,000 UNIT; Start 03/28/18 at 21:00 Miscellaneous Information (Pending Santyl Order For Wound Care) This patient rivera... PRN PRN XX soiled; Start 03/28/18 at 19:00 Potassium Chloride (Klor-Con 20) 40 meq DAILY PO Last administered on 04/05/18 t 08:21; Admin Dose 40 MEQ; Start 03/29/18 at 06:30 Senna/Docusate Sodium (Senokot-S) 2 tab DAILY PO Last administered on 04/05/18 08:38; Admin Dose 2 TAB; Start 03/30/18 at 09:00 Ascorbic Acid (Vitamin C) 500 mg BID PO Last administered on 04/05/18 08:22; Admin Dose 500 MG; Start 03/29/18 at 21:00; Stop 04/12/18 at 20:59 Zinc Sulfate (Zinc Sulfate) 220 mg DAILY PO Last administered on 04/05/18 08:22; Admin Dose 220 MG; Start 03/30/18 at 09:00; Stop 04/13/18 at 08:59 Multivitamins Therapeutic (Theragran) 1 tab DAILY PO Last administered on 04/05/18 08:21; Admin Dose 1 TAB; Start 03/30/18 at 09:00 Gabapentin (Neurontin) 200 mg TID PO Last administered on 04/05/18 14:41; Admin Dose 200 MG; Start 03/30/18 at 13:00 Metoprolol Succinate (Toprol Xl) 50 mg BID PO Last administered on 04/05/18 08:24; Admin Dose 50 MG; Start 03/31/18 at 21:00 Oxycodone HCl (Oxycontin) 20 mg BID PRN PO PAIN LEVEL 6-10 Last administered on 04/05/18 08:40; Admin Dose 20 MG; Start 03/31/18 at 15:00 Digoxin (Digoxin) 0.125 mg DAILY@13 PO Last administered on 04/05/18 14:41; Admin Dose 0.125 MG; Start 04/02/18 at 13:00 Oxycodone/ Acetaminophen (Percocet (5/ 325)) 1 tab Q4H PRN PO MODERATE PAIN LEVEL 4-6 Last administered on 04/05/18 14:37; Admin Dose 1 TAB; Start 04/02/18 at 14:00 Bisacodyl (Dulcolax) 5 mg DAILY PRN PO CONSTIPATION Last administered on 12/19/18at 17:07; Admin Dose 5 MG; Start 04/02/18 at 18:30 Collagenase (Santyl) 1 applic DAILY TOP Last administered on 04/05/18at 08:21; Admin Dose 1 APPLIC; Start 04/03/18 at 11:00 Ceftriaxone Sodium 50 ml @ 100 mls/hr Q24H IVPB Last administered on 04/04/18at 21:56; Admin Dose 100 MLS/HR; Start 04/04/18 at 20:00 Vancomycin HCl (Vanco Iv Per Pharmacy) VANCOMYCIN PER PHARMACY PER PROTOCOL XX ; Start 04/04/18 at 17:30 Furosemide (Lasix) 40 mg DAILY PO ; Start 04/06/18 at 09:00 Vancomycin HCl 750 mg/Sodium Chloride 150 ml @ 75 mls/hr Q24H IVPB ; Start 04/05/18 at 23:00 VTE Prophylaxis Risk score (from [facility])>0 risk: 4 SCD applied (from [facility]): No SCD contraindication: other Lines/Catheters IV Catheter Type: Delatorre in Place: No Assessment/Plan Hospital Course Subjective No new acute complaints, continued arm fatigue Objective Physical exam General: Patient is laying in bed and answers questions appropriately Mentation: Patient is alert and oriented 4, Head: Normocephalic atraumatic Eyes: EOMI, pupils reactive to light Neck: Supple, nontender, midline Respiratory: Clear to auscultation bilaterally Cardiovascular: regular rate, no obvious murmurs Gastrointestinal: non-tender to palpation, bowel sounds heard. Neurological: Moves all extremities spontaneously Musculoskeletal: Bilateral AKA Assessment/Plan 1. Acute pain in right thigh s/p b/l amputations - Pain management adjusted medications to PRN yesterday. Will monitor for excess sedation and decrease dose if needed - LE US negative for DVT. 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 Discussed with vascular, Dr. Rodríguez, who said it was chronic and will need to follow up with outpatient clinic at [facility] since RLE amputation was performed there. - PT/OT on board leukocytosis -mild elevation, no true signs of infection -abx already on for multiple days, but will order repeat UA and cultures. -ID consulted, changed abx 2. Acute on chronic systolic heart failure- improving - Diuresing well and shortness of breath has resolved - Cardiology consultation placed and appreciate recommendations. - Echo results noted from prior admission with EF 20% - BNP noted 3. Wounds on elbows and sacrum - wound consultation appreciated 4. CAD - continue all home medications - stable 5. b/l AKA secondary PVD - PT/OT consultation appreciated 6. Episode of sustained vtach- resolved - BB continues to be adjusted. still with tachycardia. Will need better HR control prior to d/c home 7. Disposition - Continue titrating pain medications for better control and less sedation. still with tachycardia and needs better HR control prior to d/c home. - wbc is slowly lowering -patient more fatigued, will attempt to look for snf ZACH SIMON Apr 05, 2018 16:11
[2018-04-05] MEDS ORDERED: VANCOMYCIN 750 MG in SOD CHLORIDE 0.9% 150 ML IVPB SCH (20:00)
[2018-04-05] MEDS ORDERED: VITAMIN A & D 5 GM OINT PACKET TOP ONE (20:22)
[2018-04-05] MEDS: CEFTRIAXONE 1 GM/50 ML (PMX) 50 ML IVPB SCH (20:23)
[2018-04-05] MEDS: MONTELUKAST 10 MG TAB PO SCH (20:24)
[2018-04-05] MEDS: ATORVASTATIN 80 MG TAB PO SCH (20:24)
[2018-04-05] MEDS: TAMSULOSIN (SR) 0.4 MG CAP PO SCH (20:24)
[2018-04-05] MEDS: BISACODYL (EC) 5 MG TAB PO PRN (20:24)
[2018-04-05] MEDS: VANCOMYCIN 750 MG in SOD CHLORIDE 0.9% 150 ML IVPB SCH (23:13)
[2018-04-06] VITALS (14 sets, daily range): BP systolic 88–120; BP diastolic 55–70; PULSE 76–183; RESP 18–20
[2018-04-06] MEDS: OXYCODONE/ACETAMINOPHEN (5/325) TAB PO PRN ×3 (01:14→22:59)
[2018-04-06] MEDS: PANTOPRAZOLE (EC) 40 MG TAB PO SCH (05:52)
[2018-04-06] MEDS: oxyCODONE (CR) 20 MG TAB [oxyCONTIN] PO PRN ×2 (05:52→20:08)
[2018-04-06] MEDS: ALBUTEROL/IPRATROPIUM (NEB) 3 ML AMP HHN SCH ×3 (07:44→19:46)
[2018-04-06] MEDS: NYSTATIN 30 GM POWDER BTL TOP SCH ×2 (09:00→20:07)
[2018-04-06] MEDS: BUDESONIDE (NEB) 0.5MG/2ML AMP HHN SCH ×2 (09:00→19:39)
[2018-04-06] MEDS: ASCORBIC ACID 500 MG TAB PO SCH ×2 (09:26→20:07)
[2018-04-06] MEDS: FERROUS GLUCONATE (EC) 325 MG TAB PO SCH ×2 (09:26→20:07)
[2018-04-06] MEDS: SENNA/DOCUSATE NA (8.6MG/50MG) TAB PO SCH (09:26)
[2018-04-06] MEDS: SPIRONOLACTONE 25 MG TAB PO SCH (09:26)
[2018-04-06] MEDS: POTASSIUM CHLORIDE (SR) 20 MEQ TAB PO SCH (09:27)
[2018-04-06] MEDS: ZINC SULFATE 220 MG CAP PO SCH (09:27)
[2018-04-06] MEDS: SACUBITRIL/VALSARTAN (24mg-26mg) TABLET PO SCH ×2 (09:27→20:08)
[2018-04-06] MEDS: MULTIVITAMINS THERAPEUTIC TAB PO SCH (09:27)
[2018-04-06] MEDS: CHOLECALCIFEROL 2,000 UNIT CAP PO SCH ×2 (09:27→20:07)
[2018-04-06] MEDS: FUROSEMIDE 40 MG TAB PO SCH (09:28)
[2018-04-06] MEDS: METOPROLOL (XL) 50 MG TAB PO SCH ×2 (09:28→20:20)
[2018-04-06] MEDS: GABAPENTIN 100 MG CAP PO SCH ×3 (09:28→20:08)
[2018-04-06] MEDS: TIOTROPIUM 18 MCG CAPSULE INHA DEV INH SCH (09:33)
[2018-04-06] MEDS: COLLAGENASE 5 GM (UD JAR) TOP SCH (09:43)
[2018-04-06] MEDS: ENOXAPARIN 40 MG/0.4 ML SYG SC SCH (09:50)
[2018-04-06] MEDS: MAGNESIUM HYDROXIDE 30ML CUP PO PRN ×2 (10:33→22:50)
[2018-04-06] MEDS: DIGOXIN 0.125 MG TAB PO SCH (12:16)
--- NOTE | 2018-04-06 12:38 | CONS ---
Date/Time of Note Date/Time of Note DATE: 04/06/18 TIME: 12:36 Assessment/Plan Assessment/Plan Chief Complaint/Hosp Course IMPRESSION: 1. Congestive heart failure exacerbation, systolic, acute on chronic. 2. Cardiomyopathy with severely depressed left ventricular ejection fraction with last being approximately 20%. 3. Hypertension. 4. Dyslipidemia. 5. History of substance abuse. 6. Chronic obstructive pulmonary disease. 7. Bilateral lower extremity amputation and presenting with right stump pain. 8. Questionable history of intracardiac thrombus not seen by most recent echocardiogram dated 01/06/2018, but with severely depressed ejection fraction at that time of 20%. 9. Tobacco intake. 10. SVT-regular recurrent to 160-180. Broke with PO BB. Also questionable WCT right before. Had recurrent SVT o/n 04/01 Recc: -Tele -serial ecg's -Continue entresto -Continue BB -Continue aldactone -Continue lasix daily -Continue bronchodilators/abx's and f/u cx data -Continue po digoxin -pain control Consultation Date/Type/Reason Admit Date/Time Mar 29, 2018 at 07:48 Initial Consult Date 03/29/18 Type of Consult cardiology Reason for Consultation tachycardia Requesting Provider: SUSAN FAULKNER MD Exam/Review of Systems Vital Signs Vitals Vital Signs Date Temp Pulse Resp B/P (MAP) Pulse Ox O2 O2 Flow FiO2 Time Delivery Rate 04/06/18 101 12:00 04/06/18 98.0 19 100/60 95 Room Air 11:36 (73) 04/05/18 21 19:48 Intake and Output 04/05/18 04/05/18 04/06/18 1414:59 22:59 06:59 IntakeIntake Total 360 ml 590 ml 800 ml OutputOutput Total 1200 ml 1000 ml BalanceBalance 360 ml -610 ml -200 ml Exam Review of Systems: CONSTITUTIONAL: No fevers, chills. PULMONARY: No sob CARDIOVASCULAR: No chest pain/palpitations GASTROINTESTINAL: No nausea/vomiting. GENITOURINARY: No hematuria/dysuria. MUSCULOSKELETAL: No myagias/arthalgias. PSYCHIATRIC: The patient denies depression. NEUROLOGIC: No weakness Constitutional: alert Psych: no complaints Head: normocephalic ENMT: mucosa pink and moist Neck: supple, jvd (9 cm water) Respiratory: diminished breath sounds Cardiovascular: regular rate and rhythm Gastrointestinal: soft, non-tender Musculoskeletal: muscle tone (normal) Extremities: edema (none) Neurological: other (NO focal deficits) VIVIAN PRINCE Apr 06, 2018 12:38
--- NOTE | 2018-04-06 15:22 | PN ---
Date/Time of Note Date/Time of Note DATE: 04/06/18 TIME: 15:22 Objective Vitals Vital Signs Date Temp Pulse Resp B/P (MAP) Pulse Ox O2 O2 Flow FiO2 Time Delivery Rate 04/06/18 98.0 98 20 88/56 (67) 100 Room Air 15:04 04/06/18 21 13:19 Intake and Output 04/05/18 04/05/18 04/06/18 1515:00 23:00 07:00 IntakeIntake Total 360 ml 590 ml 800 ml OutputOutput Total 1200 ml 1000 ml BalanceBalance 360 ml -610 ml -200 ml Results Result Diagram: 04/06/18 0450 04/06/18 0450 Medications Medications Current Medications Atorvastatin Calcium (Lipitor) 80 mg QHS PO Last administered on 04/05/18at 20:24; Admin Dose 80 MG; Start 03/28/18 at 21:00 Budesonide (Pulmicort (Neb)) 0.5 mg BID RESP THERAPY HHN Last administered on 04/05/18at 19:48; Admin Dose 0.5 MG; Start 03/28/18 at 20:00 Ferrous Gluconate (Fergon) 325 mg BID PO Last administered on 04/06/18 09:26; Admin Dose 325 MG; Start 03/28/18 at 21:00 Albuterol/ Ipratropium (Duoneb) 3 ml Q6HWA RESP THERAPY HHN Last administered on 04/06/18 13:11; Admin Dose 3 ML; Start 03/28/18 at 20:00 Montelukast Sodium (Singulair) 10 mg QHS PO Last administered on 04/05/18 20:24; Admin Dose 10 MG; Start 03/28/18 at 21:00 Pantoprazole (Protonix Tab) 40 mg DAILY@06 PO Last administered on 04/06/18 05:52; Admin Dose 40 MG; Start 03/29/18 at 06:00 Spironolactone (Aldactone) 25 mg DAILY PO Last administered on 04/06/18 09:26; Admin Dose 25 MG; Start 03/29/18 at 09:00 Tamsulosin HCl (Flomax) 0.4 mg HS PO Last administered on 04/05/18at 20:24; Admin Dose 0.4 MG; Start 03/28/18 at 21:00 Tiotropium [place] (Spiriva) 1 inh DAILY INH Last administered on 04/06/18at 09:33; Admin Dose 1 INH; Start 03/29/18 at 09:00 Albuterol (Proventil 0.083% (Neb)) 2.5 mg Q2H RESP THERAPY PRN HHN SHORTNESS OF BREATH; Start 03/28/18 at 16:30 IV Flush (NS 3 ml) 3 ml PER PROTOCOL IV ; Start 03/28/18 at 16:30 Ondansetron HCl (Zofran Inj) 4 mg Q6H PRN IV NAUSEA AND/OR VOMITING; Start 03/28/18 at 16:30 Nitroglycerin (Nitroglycerin (Sl Tab) 0.4 Mg) 1 tab Q5M PRN SL CHEST PAIN; Start 03/28/18 at 16:30 Acetaminophen (Tylenol Tab) 650 mg Q6H PRN PO PAIN LEVEL 1-3 OR FEVER; Start 03/28/18 at 16:30 Docusate Sodium (Colace) 100 mg Q12H PRN PO CONSTIPATION Last administered on 04/04/18at 17:07; Admin Dose 100 MG; Start 03/28/18 at 16:30 Magnesium Hydroxide (Milk Of Mag) 30 ml DAILY PRN PO CONSTIPATION Last administered on 04/06/18at 10:33; Admin Dose 30 ML; Start 03/28/18 at 16:30 Enoxaparin Sodium (Lovenox) 40 mg DAILY SC Last administered on 04/06/18at 09:50; Admin Dose 40 MG; Start 03/29/18 at 09:00 Sacubitril/ Valsartan (Entresto 24 Mg-26 Mg) 1 tab BID PO Last administered on 04/06/18at 09:27; Admin Dose 1 TAB; Start 03/28/18 at 21:00 Nystatin (Nystatin Powder) 1 applic BID TOP Last administered on 04/06/18at 09:00; Admin Dose 1 APPLIC; Start 03/28/18 at 21:00 Cholecalciferol (Vitamin D) 2,000 unit BID PO Last administered on 04/06/18 09:27; Admin Dose 2,000 UNIT; Start 03/28/18 at 21:00 Miscellaneous Information (Pending [facility] Order For Wound Care) This patient rivera... PRN PRN XX soiled; Start 03/28/18 at 19:00 Potassium Chloride (Klor-Con 20) 40 meq DAILY PO Last administered on 04/06/18 09:27; Admin Dose 40 MEQ; Start 03/29/18 at 06:30 Senna/Docusate Sodium (Senokot-S) 2 tab DAILY PO Last administered on 04/06/18 09:26; Admin Dose 2 TAB; Start 03/30/18 at 09:00 Ascorbic Acid (Vitamin C) 500 mg BID PO Last administered on 04/06/18 09:26; Admin Dose 500 MG; Start 03/29/18 at 21:00; Stop 04/12/18 at 20:59 Zinc Sulfate (Zinc Sulfate) 220 mg DAILY PO Last administered on 04/06/18 09 :27; Admin Dose 220 MG; Start 03/30/18 at 09:00; Stop 04/13/18 at 08:59 Multivitamins Therapeutic (Theragran) 1 tab DAILY PO Last administered on 04/06/18 09:27; Admin Dose 1 TAB; Start 03/30/18 at 09:00 Gabapentin (Neurontin) 200 mg TID PO Last administered on 04/06/18 12:15; Admin Dose 200 MG; Start 03/30/18 at 13:00 Metoprolol Succinate (Toprol Xl) 50 mg BID PO Last administered on 04/06/18 09:28; Admin Dose 50 MG; Start 03/31/18 at 21:00 Oxycodone HCl (Oxycontin) 20 mg BID PRN PO PAIN LEVEL 6-10 Last administered on 04/06/18 05:52; Admin Dose 20 MG; Start 03/31/18 at 15:00 Digoxin (Digoxin) 0.125 mg DAILY@13 PO Last administered on 04/06/18 12:16; Admin Dose 0.125 MG; Start 04/02/18 at 13:00 Oxycodone/ Acetaminophen (Percocet (5/ 325)) 1 tab Q4H PRN PO MODERATE PAIN LEVEL 4-6 Last administered on 04/06/18 09:41; Admin Dose 1 TAB; Start 04/02/18 at 14:00 Bisacodyl (Dulcolax) 5 mg DAILY PRN PO CONSTIPATION Last administered on 04/05/18 20:24; Admin Dose 5 MG; Start 04/02/18 at 18:30 Collagenase (Santyl) 1 applic DAILY TOP Last administered on 04/06/18at 09:43; Admin Dose 1 APPLIC; Start 04/03/18 at 11:00 Ceftriaxone Sodium 50 ml @ 100 mls/hr Q24H IVPB Last administered on 04/05/18at 20:23; Admin Dose 100 MLS/HR; Start 04/04/18 at 20:00 Vancomycin HCl (Vanco Iv Per Pharmacy) VANCOMYCIN PER PHARMACY PER PROTOCOL XX ; Start 04/04/18 at 17:30 Furosemide (Lasix) 40 mg DAILY PO Last administered on 04/06/18at 09:28; Admin Dose 40 MG; Start 04/06/18 at 09:00 Vancomycin HCl 750 mg/Sodium Chloride 150 ml @ 75 mls/hr Q24H IVPB Last administered on 04/05/18at 23:13; Admin Dose 75 MLS/HR; Start 04/05/18 at 23:00 VTE Prophylaxis Risk score ([place] [facility] [place] risk: 7 SCD applied (from [facility] [place] No SCD contraindication: other Lines/Catheters IV Catheter Type: Delatorre in Place: No Assessment/Plan Hospital Course Subjective No new acute complaints, continued arm fatigue Objective Physical exam General: Patient is laying in bed and answers questions appropriately Mentation: Patient is alert and oriented 4, Head: Normocephalic atraumatic Eyes: EOMI, pupils reactive to light Neck: Supple, nontender, midline Respiratory: Clear to auscultation bilaterally Cardiovascular: regular rate, no obvious murmurs Gastrointestinal: non-tender to palpation, bowel sounds heard. Neurological: Moves all extremities spontaneously Musculoskeletal: Bilateral AKA Assessment/Plan 1. Acute pain in right thigh s/p b/l amputations - Pain management adjusted medications to PRN yesterday. Will monitor for excess sedation and decrease dose if needed - LE US negative for DVT. 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 Discussed with vascular, Dr. Rodríguez, who said it was chronic and will need to follow up with outpatient clinic at [facility] since RLE amputation was performed there. - PT/OT on board leukocytosis -mild elevation, no true signs of infection -abx already on for multiple days, -ID consulted, changed abx -WBC scan ordered 2. Acute on chronic systolic heart failure- improving - Diuresing well and shortness of breath has resolved - Cardiology consultation placed and appreciate recommendations. - Echo results noted from prior admission with EF 20% - BNP noted 3. Wounds on elbows and sacrum - wound consultation appreciated 4. CAD - continue all home medications - stable 5. b/l AKA secondary PVD - PT/OT consultation appreciated 6. Episode of sustained vtach- resolved - BB continues to be adjusted. still with tachycardia. Will need better HR control prior to d/c home 7. Disposition - Continue titrating pain medications for better control and less sedation. still with tachycardia and needs better HR control prior to d/c home. - wbc is slowly lowering -patient more fatigued, will attempt to look for snf ZACH SIMON Apr 06, 2018 15:22
--- NOTE | 2018-04-06 17:08 | CONS ---
Date/Time of Note Date/Time of Note DATE: 04/06/18 TIME: 17:06 Assessment/Plan Assessment/Plan Chief Complaint/Hosp Course No acute events overnight no fevers patient is awake looks comfortable WBC 16.3 platelets 333 neutrophils 78.1 BUN 26 creatinine 0.87 Microbiology: All cultures negative, MRSA swab positive Allergy: Tetracycline Antimicrobials: Vancomycin Rocephin Physical examination: Well-nourished well-developed elderly -[place]hut[place] man who is in no distress. Head atraumatic normocephalic neck is supple chest rise symmetrical breath sounds diminished bases. Heart: S1-S2. Abdomen soft bowel sounds present. Extremities without cyanosis patient has bilateral above-knee amputation. Skin: Patient has multiple pressure sores Assessment: 1. Persistent leukocytosis of unknown etiology 2. Status post recurrent CHF 3. COPD 4. Substance abuse 5. Multiple wounds and pressure sores 6. History of methicillin-resistant Staphylococcus aureus infected graft, status post debridement back in 06/2017, per patient, the rest of the graft was removed at [facility], he completed IV vancomycin back in January 7. History of CABG and MD 8. Diabetes 9. MRSA nares colonization Plan: Patient is clinically stable were going to discontinue Rocephin, add Bactroban to nares and consider WBC labeled nuclear scan. Await for pro calcitonin level. Discussed with Dr. Haines Consultation Date/Type/Reason Admit Date/Time Mar 29, 2018 at 07:48 Initial Consult Date Type of Consult ID Requesting Provider: SUSAN FAULKNER MD Exam/Review of Systems Vital Signs Vitals Vital Signs Date Temp Pulse Resp B/P (MAP) Pulse Ox O2 O2 Flow FiO2 Time Delivery Rate 04/06/18 99 16:00 04/06/18 96/56 (69) 15:34 04/06/18 98.0 20 100 Room Air 15:04 04/06/18 21 13:19 Intake and Output 04/05/18 04/05/18 04/06/18 1515:00 23:00 07:00 IntakeIntake Total 360 ml 590 ml 800 ml OutputOutput Total 1200 ml 1000 ml BalanceBalance 360 ml -610 ml -200 ml NAYELI MADERA NP Apr 06, 2018 17:08
[2018-04-06] MEDS: ATORVASTATIN 80 MG TAB PO SCH (20:07)
[2018-04-06] MEDS: MUPIROCIN 2% 22 GM OINT TOP SCH (20:07)
[2018-04-06] MEDS: MONTELUKAST 10 MG TAB PO SCH (20:07)
[2018-04-06] MEDS: TAMSULOSIN (SR) 0.4 MG CAP PO SCH (20:08)
[2018-04-06] MEDS: VANCOMYCIN 750 MG in SOD CHLORIDE 0.9% 150 ML IVPB SCH (22:50)
[2018-04-06] MEDS: DOCUSATE SODIUM 100 MG CAP PO PRN (22:50)
[2018-04-07] VITALS (11 sets, daily range): BP systolic 99–118; BP diastolic 55–73; PULSE 48–106; RESP 18–20
[2018-04-07] MEDS: PANTOPRAZOLE (EC) 40 MG TAB PO SCH (05:20)
[2018-04-07] MEDS: ALBUTEROL/IPRATROPIUM (NEB) 3 ML AMP HHN SCH ×3 (08:00→19:39)
[2018-04-07] MEDS: GABAPENTIN 100 MG CAP PO SCH ×3 (08:27→21:02)
[2018-04-07] MEDS: MUPIROCIN 2% 22 GM OINT TOP SCH ×2 (08:27→21:03)
[2018-04-07] MEDS: COLLAGENASE 5 GM (UD JAR) TOP SCH (08:27)
[2018-04-07] MEDS: TIOTROPIUM 18 MCG CAPSULE INHA DEV INH SCH (08:28)
[2018-04-07] MEDS: CHOLECALCIFEROL 2,000 UNIT CAP PO SCH ×2 (08:28→21:02)
[2018-04-07] MEDS: SACUBITRIL/VALSARTAN (24mg-26mg) TABLET PO SCH ×2 (08:28→21:02)
[2018-04-07] MEDS: ZINC SULFATE 220 MG CAP PO SCH (08:28)
[2018-04-07] MEDS: METOPROLOL (XL) 50 MG TAB PO SCH ×2 (08:29→21:02)
[2018-04-07] MEDS: MULTIVITAMINS THERAPEUTIC TAB PO SCH (08:29)
[2018-04-07] MEDS: SPIRONOLACTONE 25 MG TAB PO SCH (08:30)
[2018-04-07] MEDS: FERROUS GLUCONATE (EC) 325 MG TAB PO SCH ×2 (08:30→21:02)
[2018-04-07] MEDS: NYSTATIN 30 GM POWDER BTL TOP SCH ×2 (08:30→21:03)
[2018-04-07] MEDS: FUROSEMIDE 40 MG TAB PO SCH (08:30)
[2018-04-07] MEDS: SENNA/DOCUSATE NA (8.6MG/50MG) TAB PO SCH (08:30)
[2018-04-07] MEDS: ASCORBIC ACID 500 MG TAB PO SCH ×2 (08:31→21:02)
[2018-04-07] MEDS: ENOXAPARIN 40 MG/0.4 ML SYG SC SCH (08:57)
[2018-04-07] MEDS: BUDESONIDE (NEB) 0.5MG/2ML AMP HHN SCH ×2 (09:19→19:39)
--- NOTE | 2018-04-07 12:46 | PN ---
Date/Time of Note Date/Time of Note DATE: 04/07/18 TIME: 12:45 Objective Vitals Vital Signs Date Temp Pulse Resp B/P (MAP) Pulse Ox O2 O2 Flow FiO2 Time Delivery Rate 04/07/18 103 12:00 04/07/18 98.0 20 107/70 100 Room Air 11:13 (82) 04/07/18 21 09:19 04/06/18 2.0 19:34 Intake and Output 04/06/18 04/06/18 04/07/18 1515:00 23:00 07:00 IntakeIntake Total 900 ml 750 ml OutputOutput Total 1200 ml 1100 ml BalanceBalance -300 ml -350 ml Results Result Diagram: 04/07/18 0500 04/07/18 0500 Medications Medications Current Medications Atorvastatin Calcium (Lipitor) 80 mg QHS PO Last administered on 04/06/18at 20:07; Admin Dose 80 MG; Start 03/28/18 at 21:00 Budesonide (Pulmicort (Neb)) 0.5 mg BID RESP THERAPY HHN Last administered on 04/07/18at 09:19; Admin Dose 0.5 MG; Start 03/28/18 at 20:00 Ferrous Gluconate (Fergon) 325 mg BID PO Last administered on 04/07/18 08:30; Admin Dose 325 MG; Start 03/28/18 at 21:00 Albuterol/ Ipratropium (Duoneb) 3 ml Q6HWA RESP THERAPY HHN Last administered on 04/06/18at 13:11; Admin Dose 3 ML; Start 03/28/18 at 20:00 Montelukast Sodium (Singulair) 10 mg QHS PO Last administered on 04/06/18at 20:07; Admin Dose 10 MG; Start 03/28/18 at 21:00 Pantoprazole (Protonix Tab) 40 mg DAILY@06 PO Last administered on 04/07/18 05:20; Admin Dose 40 MG; Start 03/29/18 at 06:00 Spironolactone (Aldactone) 25 mg DAILY PO Last administered on 04/07/18 08:30; Admin Dose 25 MG; Start 03/29/18 at 09:00 Tamsulosin HCl (Flomax) 0.4 mg HS PO Last administered on 12/21/18at 20:08; Admin Dose 0.4 MG; Start 03/28/18 at 21:00 Tiotropium [place] (Spiriva) 1 inh DAILY INH Last administered on 04/07/18at 08:28; Admin Dose 1 INH; Start 03/29/18 at 09:00 Albuterol (Proventil 0.083% (Neb)) 2.5 mg Q2H RESP THERAPY PRN HHN SHORTNESS OF BREATH Last administered on 04/06/18at 19:39; Admin Dose 2.5 MG; Start 03/28/18 at 16:30 IV Flush (NS 3 ml) 3 ml PER PROTOCOL IV ; Start 03/28/18 at 16:30 Ondansetron HCl (Zofran Inj) 4 mg Q6H PRN IV NAUSEA AND/OR VOMITING; Start 03/28/18 at 16:30 Nitroglycerin (Nitroglycerin (Sl Tab) 0.4 Mg) 1 tab Q5M PRN SL CHEST PAIN; Start 03/28/18 at 16:30 Acetaminophen (Tylenol Tab) 650 mg Q6H PRN PO PAIN LEVEL 1-3 OR FEVER; Start 03/28/18 at 16:30 Docusate Sodium (Colace) 100 mg Q12H PRN PO CONSTIPATION Last administered on 04/06/18at 22:50; Admin Dose 100 MG; Start 03/28/18 at 16:30 Magnesium Hydroxide (Milk Of Mag) 30 ml DAILY PRN PO CONSTIPATION Last administered on 04/06/18at 22:50; Admin Dose 30 ML; Start 03/28/18 at 16:30 Enoxaparin Sodium (Lovenox) 40 mg DAILY SC Last administered on 04/07/18at 08:57; Admin Dose 40 MG; Start 03/29/18 at 09:00 Sacubitril/ Valsartan (Entresto 24 Mg-26 Mg) 1 tab BID PO Last administered on 04/06/18at 20:08; Admin Dose 1 TAB; Start 03/28/18 at 21:00 Nystatin (Nystatin Powder) 1 applic BID TOP Last administered on 04/07/18at 08:30; Admin Dose 1 APPLIC; Start 03/28/18 at 21:00 Cholecalciferol (Vitamin D) 2,000 unit BID PO Last administered on 04/07/18at 08:28; Admin Dose 2,000 UNIT; Start 03/28/18 at 21:00 Miscellaneous Information (Pending Santyl Order For Wound Care) This patient rivera... PRN PRN XX soiled; Start 03/28/18 at 19:00 Senna/Docusate Sodium (Senokot-S) 2 tab DAILY PO Last administered on 04/07/18 08:30; Admin Dose 2 TAB; Start 03/30/18 at 09:00 Ascorbic Acid (Vitamin C) 500 mg BID PO Last administered on 04/07/18 08:31; Admin Dose 500 MG; Start 03/29/18 at 21:00; Stop 04/12/18 at 20:59 Zinc Sulfate (Zinc Sulfate) 220 mg DAILY PO Last administered on 04/07/18 08:28; Admin Dose 220 MG; Start 03/30/18 at 09:00; Stop 04/13/18 at 08:59 Multivitamins Therapeutic (Theragran) 1 tab DAILY PO Last administered on 04/07/18 08:29; Admin Dose 1 TAB; Start 03/30/18 at 09:00 Gabapentin (Neurontin) 200 mg TID PO Last administered on 04/07/18 08:27; Admin Dose 200 MG; Start 03/30/18 at 13:00 Metoprolol Succinate (Toprol Xl) 50 mg BID PO Last administered on 04/06/18 20:20; Admin Dose 50 MG; Start 03/31/18 at 21:00 Oxycodone HCl (Oxycontin) 20 mg BID PRN PO PAIN LEVEL 6-10 Last administered on 04/06/18at 20:08; Admin Dose 20 MG; Start 03/31/18 at 15:00 Digoxin (Digoxin) 0.125 mg DAILY@13 PO Last administered on 04/06/18 12:16; Admin Dose 0.125 MG; Start 04/02/18 at 13:00 Oxycodone/ Acetaminophen (Percocet (5/ 325)) 1 tab Q4H PRN PO MODERATE PAIN LEVEL 4-6 Last administered on 04/06/18at 22:59; Admin Dose 1 TAB; Start 04/02/18 at 14:00 Bisacodyl (Dulcolax) 5 mg DAILY PRN PO CONSTIPATION Last administered on 04/05/18 20:24; Admin Dose 5 MG; Start 04/02/18 at 18:30 Collagenase (Santyl) 1 applic DAILY TOP Last administered on 04/07/18at 08:27; Admin Dose 1 APPLIC; Start 04/03/18 at 11:00 Vancomycin HCl (Vanco Iv Per Pharmacy) VANCOMYCIN PER PHARMACY PER PROTOCOL XX ; Start 04/04/18 at 17:30 Furosemide (Lasix) 40 mg DAILY PO Last administered on 04/07/18at 08:30; Admin Dose 40 MG; Start 04/06/18 at 09:00 Vancomycin HCl 750 mg/Sodium Chloride 150 ml @ 75 mls/hr Q24H IVPB Last administered on 04/06/18at 22:50; Admin Dose 75 MLS/HR; Start 04/05/18 at 23:00 Mupirocin (Bactroban) 1 applic BID TOP Last administered on 04/07/18at 08:27; Admin Dose 1 APPLIC; Start 04/06/18 at 21:00 VTE Prophylaxis Risk score (from [facility] [place])>[place] risk: 8 SCD applied (from [facility] [place]): No SCD contraindication: other Lines/Catheters IV Catheter Type: Delatorre in Place: No Assessment/Plan Hospital Course Subjective No new acute complaints, continued arm fatigue and LE stump pain Objective Physical exam General: Patient is laying in bed and answers questions appropriately Mentation: Patient is alert and oriented 4, Head: Normocephalic atraumatic Eyes: EOMI, pupils reactive to light Neck: Supple, nontender, midline Respiratory: Clear to auscultation bilaterally Cardiovascular: regular rate, no obvious murmurs Gastrointestinal: non-tender to palpation, bowel sounds heard. Neurological: Moves all extremities spontaneously Musculoskeletal: Bilateral AKA Assessment/Plan Acute pain in right thigh s/p b/l amputations - Pain management adjusted medications to PRN yesterday. Will monitor for excess sedation and decrease dose if needed - LE US negative for DVT. 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 Discussed with vascular, Dr. Rodríguez, who said it was chronic and will need to follow up with outpatient clinic at [facility] since RLE amputation was performed there. - PT/OT on board leukocytosis -mild elevation, no true signs of infection -abx already on for multiple days, -ID consulted, changed abx -WBC scan ordered as well as MRI of LE to r/o infection/abscess Acute on chronic systolic heart failure- improving - Diuresing well and shortness of breath has resolved - Cardiology consultation placed and appreciate recommendations. - Echo results noted from prior admission with EF 20% - BNP noted Wounds on elbows and sacrum - wound consultation appreciated CAD - continue all home medications - stable b/l AKA secondary PVD - PT/OT consultation appreciated Episode of sustained vtach- resolved - BB continues to be adjusted. still with tachycardia. Will need better HR control prior to d/c home Disposition - Continue titrating pain medications for better control and less sedation. still with tachycardia and needs better HR control prior to d/c home. - wbc is slowly lowering, wbc scan and mri pending -patient more fatigued, will attempt to look for snf ZACH SIMON Apr 07, 2018 12:46
[2018-04-07] MEDS: DIGOXIN 0.125 MG TAB PO SCH (13:07)
[2018-04-07] MEDS: oxyCODONE (CR) 20 MG TAB [oxyCONTIN] PO PRN (13:12)
--- NOTE | 2018-04-07 14:02 | CONS ---
Date/Time of Note Date/Time of Note DATE: 04/07/18 TIME: 14:00 Assessment/Plan Assessment/Plan Additional Assessment/Plan 1. Congestive heart failure exacerbation, systolic, acute on chronic- con't diuresis, better now 2. Cardiomyopathy with severely depressed left ventricular ejection fraction with last being approximately 20%- recent drug use, ICD eval if drug free 6 months 3. Hypertension. 4. Dyslipidemia. 5. History of substance abuse- d/c advised. 6. Chronic obstructive pulmonary disease. 7. Bilateral lower extremity amputation and presenting with right stump pain. 8. Questionable history of intracardiac thrombus not seen by most recent echocardiogram dated 01/06/2018, but with severely depressed ejection fraction at that time of 20%- con't diuresis as tolerated 9. Tobacco intake. 10. SVT-regular recurrent to 160-180. Broke with PO BB. Also questionable WCT right before. Had recurrent SVT o/n 04/01 - in sinus now. Consultation Date/Type/Reason Admit Date/Time Mar 29, 2018 at 07:48 Initial Consult Date Requesting Provider: SUSAN FAULKNER MD 24 HR Interval Summary Free Text/Dictation No acute events - reasonable fluid status - no new WCT noted ROS: No fever, no chills, no nausea, no vomiting, no diarrhea/constipation No recent weight changes No chest pain, no PND, no orthopnea - improved son No dizziness, blurred vision No thirst, no heat or cold intolerance Exam/Review of Systems Vital Signs Vitals Vital Signs Date Temp Pulse Resp B/P (MAP) Pulse Ox O2 O2 Flow FiO2 Time Delivery Rate 04/07/18 103 12:00 04/07/18 98.0 20 107/70 100 Room Air 11:13 (82) 04/07/18 21 09:19 04/06/18 2.0 19:34 Intake and Output 04/06/18 04/06/18 04/07/18 1515:00 23:00 07:00 IntakeIntake Total 900 ml 750 ml OutputOutput Total 1200 ml 1100 ml BalanceBalance -300 ml -350 ml Exam General: WN/WD/NAD, AOx 3 HEENT: Unicetric/atraumatic/EOMI ( follow commands) NECK: JVD elevated, no thyromegaly Lymph: no lymphadenopathy HEART: regular with no S3, II/ systolic murmur at apex, PMI L LUNGS: Coarse sounds ABD: soft, NT, ND, +BS : Intact Neuro: non focal SKIN: chronic changes EXT: amputated PASTORA CUEVAS MD Apr 07, 2018 14:02
--- NOTE | 2018-04-07 14:59 | CONS ---
Date/Time of Note Date/Time of Note DATE: 04/07/18 TIME: 14:56 Consultation Date/Type/Reason Admit Date/Time Mar 29, 2018 at 07:48 Initial Consult Date No acute events overnight no fevers patient is awake looks comfortable WBC 16.3 platelets 333 neutrophils 78.1 BUN 26 creatinine 0.87 Microbiology: All cultures negative, MRSA swab positive Allergy: Tetracycline Antimicrobials: Vancomycin Physical examination: GEN: Well-nourished well-developed elderly -[place] man who is in no distress. HEAD: atraumatic normocephalic Neck: supple CHEST: rise symmetrical breath sounds diminished bases. HEART: S1-S2. ABDOMEN: soft bowel sounds present. EXTREM: patient has bilateral above-knee amputation. Rt stump with edema and fluctuance and mild erythema. Skin: Patient has multiple pressure sores Assessment: 1. Persistent leukocytosis of unknown etiology 2. Status post recurrent CHF 3. COPD 4. Substance abuse 5. Multiple wounds and pressure sores 6. History of methicillin-resistant Staphylococcus aureus infected graft, status post debridement back in 06/2017, per patient, the rest of the graft was removed at [facility], he completed IV vancomycin back in January 7. History of CABG and CT 8. Diabetes 9. MRSA nares colonization Plan: Patient is clinically stable. Continue Bactroban to nares and consider WBC labeled nuclear scan. Continue IV Vanco. Await for pro calcitonin level. MRI of Rt stump ordered. Requesting Provider: SUSAN FAULKNER MD Exam/Review of Systems Vital Signs Vitals Vital Signs Date Temp Pulse Resp B/P (MAP) Pulse Ox O2 O2 Flow FiO2 Time Delivery Rate 04/07/18 103 12:00 04/07/18 98.0 20 107/70 100 Room Air 11:13 (82) 04/07/18 21 09:19 04/06/18 2.0 19:34 Intake and Output 04/06/18 04/06/18 04/07/18 1515:00 23:00 07:00 IntakeIntake Total 900 ml 750 ml OutputOutput Total 1200 ml 1100 ml BalanceBalance -300 ml -350 ml SANTIAGO HENNESSY Apr 07, 2018 14:59
[2018-04-07] MEDS: MONTELUKAST 10 MG TAB PO SCH (21:02)
[2018-04-07] MEDS: OXYCODONE/ACETAMINOPHEN (5/325) TAB PO PRN (21:02)
[2018-04-07] MEDS: TAMSULOSIN (SR) 0.4 MG CAP PO SCH (21:02)
[2018-04-07] MEDS: ATORVASTATIN 80 MG TAB PO SCH (21:02)
[2018-04-07] MEDS: VANCOMYCIN 750 MG in SOD CHLORIDE 0.9% 150 ML IVPB SCH (23:53)
[2018-04-08] VITALS (11 sets, daily range): BP systolic 101–123; BP diastolic 59–70; PULSE 78–113; RESP 18–20
[2018-04-08] MEDS: oxyCODONE (CR) 20 MG TAB [oxyCONTIN] PO PRN ×3 (00:01→23:44)
[2018-04-08] MEDS: OXYCODONE/ACETAMINOPHEN (5/325) TAB PO PRN (05:56)
[2018-04-08] MEDS: PANTOPRAZOLE (EC) 40 MG TAB PO SCH (05:57)
[2018-04-08] MEDS: BUDESONIDE (NEB) 0.5MG/2ML AMP HHN SCH ×2 (08:37→20:08)
[2018-04-08] MEDS: ALBUTEROL/IPRATROPIUM (NEB) 3 ML AMP HHN SCH ×3 (08:37→20:08)
[2018-04-08] MEDS: SENNA/DOCUSATE NA (8.6MG/50MG) TAB PO SCH (08:48)
[2018-04-08] MEDS: COLLAGENASE 5 GM (UD JAR) TOP SCH (08:48)
[2018-04-08] MEDS: MULTIVITAMINS THERAPEUTIC TAB PO SCH (08:48)
[2018-04-08] MEDS: GABAPENTIN 100 MG CAP PO SCH ×3 (08:49→21:42)
[2018-04-08] MEDS: ASCORBIC ACID 500 MG TAB PO SCH ×2 (08:49→21:42)
[2018-04-08] MEDS: CHOLECALCIFEROL 2,000 UNIT CAP PO SCH ×2 (08:49→21:42)
[2018-04-08] MEDS: ZINC SULFATE 220 MG CAP PO SCH (08:49)
[2018-04-08] MEDS: FERROUS GLUCONATE (EC) 325 MG TAB PO SCH ×2 (08:49→21:42)
[2018-04-08] MEDS: METOPROLOL (XL) 50 MG TAB PO SCH ×2 (08:50→21:42)
[2018-04-08] MEDS: SPIRONOLACTONE 25 MG TAB PO SCH (08:50)
[2018-04-08] MEDS: FUROSEMIDE 40 MG TAB PO SCH (08:50)
[2018-04-08] MEDS: NYSTATIN 30 GM POWDER BTL TOP SCH ×2 (08:50→21:42)
[2018-04-08] MEDS: MUPIROCIN 2% 22 GM OINT TOP SCH ×2 (08:51→21:42)
[2018-04-08] MEDS: SACUBITRIL/VALSARTAN (24mg-26mg) TABLET PO SCH ×2 (08:53→21:41)
[2018-04-08] MEDS: ENOXAPARIN 40 MG/0.4 ML SYG SC SCH (08:58)
[2018-04-08] MEDS: TIOTROPIUM 18 MCG CAPSULE INHA DEV INH SCH (09:27)
[2018-04-08] MEDS ORDERED: HYDROmorphONE 0.5 MG/0.5 ML SYG IV PRN (09:30)
[2018-04-08] MEDS: HYDROmorphONE 0.5 MG/0.5 ML SYG IV PRN ×2 (11:07→14:13)
--- NOTE | 2018-04-08 11:33 | PN ---
Date/Time of Note Date/Time of Note DATE: 04/08/18 TIME: 11:33 Objective Vitals Vital Signs Date Temp Pulse Resp B/P (MAP) Pulse Ox O2 O2 Flow FiO2 Time Delivery Rate 04/08/18 98 08:00 04/08/18 98.5 18 101/65 99 07:31 (77) 04/08/18 Room Air 03:50 04/07/18 21 19:39 04/06/18 2.0 19:34 Intake and Output 04/07/18 04/07/18 04/08/18 1515:00 23:00 07:00 IntakeIntake Total 900 ml 850 ml OutputOutput Total 1200 ml 1000 ml BalanceBalance -300 ml -150 ml Results Result Diagram: 04/08/18 0439 04/08/18 0439 Medications Medications Current Medications Atorvastatin Calcium (Lipitor) 80 mg QHS PO Last administered on 04/07/18 21:02; Admin Dose 80 MG; Start 03/28/18 at 21:00 Budesonide (Pulmicort (Neb)) 0.5 mg BID RESP THERAPY HHN Last administered on 04/08/18 08:37; Admin Dose 0.5 MG; Start 03/28/18 at 20:00 Ferrous Gluconate (Fergon) 325 mg BID PO Last administered on 04/08/18 08:49; Admin Dose 325 MG; Start 03/28/18 at 21:00 Albuterol/ Ipratropium (Duoneb) 3 ml Q6HWA RESP THERAPY HHN Last administered on 04/08/18 08:37; Admin Dose 3 ML; Start 03/28/18 at 20:00 Montelukast Sodium (Singulair) 10 mg QHS PO Last administered on 04/07/18 21: 02; Admin Dose 10 MG; Start 03/28/18 at 21:00 Pantoprazole (Protonix Tab) 40 mg DAILY@06 PO Last administered on 04/08/18 05:57; Admin Dose 40 MG; Start 03/29/18 at 06:00 Spironolactone (Aldactone) 25 mg DAILY PO Last administered on 04/08/18 08:50; Admin Dose 25 MG; Start 03/29/18 at 09:00 Tamsulosin HCl (Flomax) 0.4 mg HS PO Last administered on 04/07/18 21:02; Admin Dose 0.4 MG; Start 03/28/18 at 21:00 Tiotropium [place] (Spiriva) 1 inh DAILY INH Last administered on 04/08/18 09:27; Admin Dose 1 INH; Start 03/29/18 at 09:00 Albuterol (Proventil 0.083% (Neb)) 2.5 mg Q2H RESP THERAPY PRN HHN SHORTNESS OF BREATH Last administered on 04/06/18 19:39; Admin Dose 2.5 MG; Start 03/28/18 at 16:30 IV Flush (NS 3 ml) 3 ml PER PROTOCOL IV ; Start 03/28/18 at 16:30 Ondansetron HCl (Zofran Inj) 4 mg Q6H PRN IV NAUSEA AND/OR VOMITING; Start 03/28/18 at 16:30 Nitroglycerin (Nitroglycerin (Sl Tab) 0.4 Mg) 1 tab Q5M PRN SL CHEST PAIN; Start 03/28/18 at 16:30 Acetaminophen (Tylenol Tab) 650 mg Q6H PRN PO PAIN LEVEL 1-3 OR FEVER; Start 03/28/18 at 16:30 Docusate Sodium (Colace) 100 mg Q12H PRN PO CONSTIPATION Last administered on 04/06/18 22:50; Admin Dose 100 MG; Start 03/28/18 at 16:30 Magnesium Hydroxide (Milk Of Mag) 30 ml DAILY PRN PO CONSTIPATION Last admini stered on 04/06/18 22:50; Admin Dose 30 ML; Start 03/28/18 at 16:30 Enoxaparin Sodium (Lovenox) 40 mg DAILY SC Last administered on 04/08/18 08:58; Admin Dose 40 MG; Start 03/29/18 at 09:00 Sacubitril/ Valsartan (Entresto 24 Mg-26 Mg) 1 tab BID PO Last administered on 04/07/18 21:02; Admin Dose 1 TAB; Start 03/28/18 at 21:00 Nystatin (Nystatin Powder) 1 applic BID TOP Last administered on 04/08/18 08:50; Admin Dose 1 APPLIC; Start 03/28/18 at 21:00 Cholecalciferol (Vitamin D) 2,000 unit BID PO Last administered on 04/08/18 08:49; Admin Dose 2,000 UNIT; Start 03/28/18 at 21:00 Miscellaneous Information (Pending Santyl Order For Wound Care) This patient rivera... PRN PRN XX soiled; Start 03/28/18 at 19:00 Senna/Docusate Sodium (Senokot-S) 2 tab DAILY PO Last administered on 04/08/18 08:48; Admin Dose 2 TAB; Start 03/30/18 at 09:00 Ascorbic Acid (Vitamin C) 500 mg BID PO Last administered on 04/08/18 08:49; Admin Dose 500 MG; Start 03/29/18 at 21:00; Stop 04/12/18 at 20:59 Zinc Sulfate (Zinc Sulfate) 220 mg DAILY PO Last administered on 04/08/18 08:49; Admin Dose 220 MG; Start 03/30/18 at 09:00; Stop 04/13/18 at 08:59 Multivitamins Therapeutic (Theragran) 1 tab DAILY PO Last administered on 04/08/18 08:48; Admin Dose 1 TAB; Start 03/30/18 at 09:00 Gabapentin (Neurontin) 200 mg TID PO Last administered on 04/08/18 08:49; Admin Dose 200 MG; Start 03/30/18 at 13:00 Metoprolol Succinate (Toprol Xl) 50 mg BID PO Last administered on 04/07/18 21:02; Admin Dose 50 MG; Start 03/31/18 at 21:00 Oxycodone HCl (Oxycontin) 20 mg BID PRN PO PAIN LEVEL 6-10 Last administered on 04/08/18 09:27; Admin Dose 20 MG; Start 03/31/18 at 15:00 Digoxin (Digoxin) 0.125 mg DAILY@13 PO Last administered on 04/07/18 13:07; Admin Dose 0.125 MG; Start 04/02/18 at 13:00 Oxycodone/ Acetaminophen (Percocet (5/ 325)) 1 tab Q4H PRN PO MODERATE PAIN LEVEL 4-6 Last administered on 04/08/18 05:56; Admin Dose 1 TAB; Start 04/02/18 at 14:00 Bisacodyl (Dulcolax) 5 mg DAILY PRN PO CONSTIPATION Last administered on 12/20/18at 20:24; Admin Dose 5 MG; Start 04/02/18 at 18:30 Collagenase (Santyl) 1 applic DAILY TOP Last administered on 04/08/18at 08:48; Admin Dose 1 APPLIC; Start 04/03/18 at 11:00 Vancomycin HCl (Vanco Iv Per Pharmacy) VANCOMYCIN PER PHARMACY PER PROTOCOL XX ; Start 04/04/18 at 17:30 Furosemide (Lasix) 40 mg DAILY PO Last administered on 04/08/18at 08:50; Admin Dose 40 MG; Start 04/06/18 at 09:00 Vancomycin HCl 750 mg/Sodium Chloride 150 ml @ 75 mls/hr Q24H IVPB Last administered on 04/07/18at 23:53; Admin Dose 75 MLS/HR; Start 04/05/18 at 23:00 Mupirocin (Bactroban) 1 applic BID TOP Last administered on 04/08/18at 08:51; Admin Dose 1 APPLIC; Start 04/06/18 at 21:00 Hydromorphone HCl (Dilaudid) 0.5 mg PRN PRN IV pain when pt going for scan Last administered on 04/08/18at 11:07; Admin Dose 0.5 MG; Start 04/08/18 at 11:00 VTE Prophylaxis Risk score (from Nsg)>0 risk: 6 SCD applied (from Nsg): No SCD contraindication: other Lines/Catheters IV Catheter Type: Delatorre in Place: No Assessment/Plan Hospital Course Subjective No new acute complaints, continued arm fatigue and LE stump pain Objective Physical exam General: Patient is laying in bed and answers questions appropriately Mentation: Patient is alert and oriented 4, Head: Normocephalic atraumatic Eyes: EOMI, pupils reactive to light Neck: Supple, nontender, midline Respiratory: Clear to auscultation bilaterally Cardiovascular: regular rate, no obvious murmurs Gastrointestinal: non-tender to palpation, bowel sounds heard. Neurological: Moves all extremities spontaneously Musculoskeletal: Bilateral AKA Assessment/Plan Acute pain in right thigh s/p b/l amputations - Pain management adjusted medications to PRN yesterday. Will monitor for excess sedation and decrease dose if needed - LE US negative for DVT. 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 Discussed with vascular, Dr. Rodríguez, who said it was chronic and will need to follow up with outpatient clinic at [facility] since RLE amputation was performed there. - PT/OT on board leukocytosis -mild elevation, no true signs of infection -abx already on for multiple days, -ID consulted, changed abx -WBC scan ordered as well as MRI of LE to r/o infection/abscess Acute on chronic systolic heart failure- improving - Diuresing well and shortness of breath has resolved - Cardiology consultation placed and appreciate recommendations. - Echo results noted from prior admission with EF 20% - BNP noted Wounds on elbows and sacrum - wound consultation appreciated CAD - continue all home medications - stable b/l AKA secondary PVD - PT/OT consultation appreciated Episode of sustained vtach- resolved - BB continues to be adjusted. still with tachycardia. Will need better HR control prior to d/c home Disposition - Continue titrating pain medications for better control and less sedation. still with tachycardia and needs better HR control prior to d/c home. - wbc is slowly lowering, wbc scan and mri pending -patient more fatigued, will attempt to look for snf ZACH SIMON Apr 08, 2018 11:33
--- NOTE | 2018-04-08 11:54 | CONS ---
Date/Time of Note Date/Time of Note DATE: 04/08/18 TIME: 11:52 Assessment/Plan Assessment/Plan Additional Assessment/Plan 1. Congestive heart failure exacerbation, systolic, acute on chronic- con't diuresis, better now - better now, con;t to keep euvolemic. 2. Cardiomyopathy with severely depressed left ventricular ejection fraction with last being approximately 20%- recent drug use, ICD eval if drug free 6 months 3. Hypertension- well maintained now. 4. Dyslipidemia. 5. History of substance abuse- d/c advised - JENNI. 6. Chronic obstructive pulmonary disease. 7. Bilateral lower extremity amputation and presenting with right stump pain. 8. Questionable history of intracardiac thrombus not seen by most recent echocardiogram dated 01/06/2018, but with severely depressed ejection fraction at that time of 20%- con't diuresis as tolerated 9. Tobacco intake. 10. SVT-regular recurrent to 160-180. Broke with PO BB. Also questionable WCT right before. Had recurrent SVT o/n 04/01 - in sinus now. Consultation Date/Type/Reason Admit Date/Time Mar 29, 2018 at 07:48 Initial Consult Date Requesting Provider: SUSAN FAULKNER MD 24 HR Interval Summary Free Text/Dictation NO acute events - better fluid status - no CP now. NO new episodes of SVT. ROS: No fever, no chills, no nausea, no vomiting, no diarrhea/constipation No recent weight changes No chest pain, no PND, no orthopnea - mild SOB No dizziness, blurred vision No thirst, no heat or cold intolerance Exam/Review of Systems Vital Signs Vitals Vital Signs Date Temp Pulse Resp B/P (MAP) Pulse Ox O2 O2 Flow FiO2 Time Delivery Rate 04/08/18 98 08:00 04/08/18 98.5 18 101/65 99 07:31 (77) 04/08/18 Room Air 03:50 04/07/18 21 19:39 04/06/18 2.0 19:34 Intake and Output 04/07/18 04/07/18 04/08/18 1515:00 23:00 07:00 IntakeIntake Total 900 ml 850 ml OutputOutput Total 1200 ml 1000 ml BalanceBalance -300 ml -150 ml Exam General: WN/WD/NAD, AOx 3 HEENT: Unicetric/atraumatic/EOMI (follow commands) NECK: JVD elevated, no thyromegaly Lymph: no lymphadenopathy HEART: regular with no S3, II/ systolic murmur at apex, PMI L LUNGS: Coarse sounds ABD: soft, NT, ND, +BS : Intact Neuro: non focal SKIN: chronic changes EXT: amputated PASTORA CUEVAS MD Apr 08, 2018 11:54
--- NOTE | 2018-04-08 13:50 | CONS ---
Date/Time of Note Date/Time of Note DATE: 04/08/18 TIME: 13:48 Assessment/Plan Assessment/Plan Chief Complaint/Hosp Course Alert feels better looks comfortable no fevers overnight. WBC 17.2 platelets 398 neutrophils 77.5 BUN 21 creatinine 0.76, Vanco trough yesterday 14.3 Antimicrobials: Vancomycin, topical Bactroban Microbiology: All cultures negative, MRSA swab positive Allergy: Tetracycline Physical examination: Well-nourished well-developed elderly -[place] man who is in no distress. Head atraumatic normocephalic neck is supple chest rise symmetrical breath sounds diminished bases. Heart: S1-S2. Abdomen soft bowel sounds present. Extremities without cyanosis patient has bilateral above-knee amputation, right stump painful to touch with some fluctuance and swelling. Skin: Patient has multiple pressure sores Assessment: 1. Persistent leukocytosis, possible infected right lower extremity stump 2. Status post recurrent CHF 3. COPD 4. Substance abuse 5. Multiple wounds and pressure sores 6. History of methicillin-resistant Staphylococcus aureus infected graft, status post debridement back in 06/2017, per patient, the rest of the graft was removed at [facility], he completed IV vancomycin back in January 7. History of CABG and RI 8. Diabetes 9. MRSA nares colonization Plan: Patient is clinically stable, pending MRI of right lower extremity, continue antibiotics Consultation Date/Type/Reason Admit Date/Time Mar 29, 2018 at 07:48 Initial Consult Date Type of Consult ID Requesting Provider: SUSAN FAULKNER MD Exam/Review of Systems Vital Signs Vitals Vital Signs Date Temp Pulse Resp B/P (MAP) Pulse Ox O2 O2 Flow FiO2 Time Delivery Rate 04/08/18 103 12:00 04/08/18 97.9 20 121/68 100 11:57 (85) 04/08/18 Room Air 03:50 04/07/18 21 19:39 04/06/18 2.0 19:34 Intake and Output 04/07/18 04/07/18 04/08/18 1515:00 23:00 07:00 IntakeIntake Total 900 ml 850 ml OutputOutput Total 1200 ml 1000 ml BalanceBalance -300 ml -150 ml NAYELI MADERA NP Apr 08, 2018 13:50
[2018-04-08] MEDS: DIGOXIN 0.125 MG TAB PO SCH (14:12)
[2018-04-08] MEDS: MONTELUKAST 10 MG TAB PO SCH (21:41)
[2018-04-08] MEDS: ATORVASTATIN 80 MG TAB PO SCH (21:42)
[2018-04-08] MEDS: TAMSULOSIN (SR) 0.4 MG CAP PO SCH (21:42)
[2018-04-08] MEDS: VANCOMYCIN 750 MG in SOD CHLORIDE 0.9% 150 ML IVPB SCH (23:44)
[2018-04-09] VITALS (12 sets, daily range): BP systolic 97–152; BP diastolic 55–73; PULSE 61–107; RESP 17–20
[2018-04-09] MEDS: PANTOPRAZOLE (EC) 40 MG TAB PO SCH (05:34)
[2018-04-09] MEDS: ALBUTEROL/IPRATROPIUM (NEB) 3 ML AMP HHN SCH ×3 (07:31→19:28)
[2018-04-09] MEDS: BUDESONIDE (NEB) 0.5MG/2ML AMP HHN SCH ×2 (07:41→19:28)
--- NOTE | 2018-04-09 08:42 | PN ---
Date/Time of Note Date/Time of Note DATE: 04/09/18 TIME: 08:42 Assessment/Plan VTE Prophylaxis Risk score (from Nsg)>0 risk: 7 SCD applied (from Nsg): No SCD contraindicated: bilateral amputee Pharmacological prophylaxis: apixaban Lines/Catheters IV Catheter Type (from Nrsg): Saline Lock Urinary Cath still in place: No Assessment/Plan Assessment/Plan 1. Acute infection in right thigh s/p b/l amputations - WBC scan shows infectious process in right stump. Awaiting MRI to assess for abscess as patient has not been able to tolerate keeping leg flat/still. Will give pain medication prior to imaging study - ID on board and added cefepime to regime. Will await MRI results for further recommendations - Pain management on board and appreciate consultation. Will monitor for excess sedation and decrease dose if needed - LE US negative for DVT. 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 Discussed with vascular, Dr. Rodríguez, who said it was chronic and will need to follow up with outpatient clinic at [facility] since RLE amputation was performed there. - PT/OT on board 2. leukocytosis - ID on board and appreciate recommendations - WBC scan results noted and MRI pending 3. Acute on chronic systolic heart failure- resolving - Diuresing well and shortness of breath has resolved - Cardiology consultation appreciated. - Echo results noted from prior admission with EF 20% - BNP at time of admission noted 4. Wounds on elbows and sacrum - wound consultation appreciated 5. CAD - continue all home medications - stable 6. b/l AKA secondary to PVD - PT/OT consultation appreciated 7. Episode of sustained vtach- resolved - Cardiology on board and continues to adjust medications as needed 8. Disposition - MRI ordered to assess right stump for abscess/source of infection - SNF placement when stable Subjective 24 Hr Interval Summary Free Text/Dictation Patient states he feels like there is "pus" in the anterior aspect of his right stump. Unable to keep leg flat during MRI due to pain. Denies any new issues or acute overnight events. Exam/Review of Systems Vital Signs Vitals Vital Signs Date Temp Pulse Resp B/P (MAP) Pulse Ox O2 O2 Flow FiO2 Time Delivery Rate 04/09/18 104 08:08 04/09/18 97.9 18 152/73 97 07:51 (99) 12/24/18 Room Air 03:53 04/08/18 3.0 20:09 04/07/18 21 19:39 Intake and Output 04/08/18 04/08/18 04/09/18 1515:00 23:00 07:00 IntakeIntake Total 500 ml 500 ml OutputOutput Total 700 ml 800 ml BalanceBalance -200 ml -300 ml Exam General: Patient is laying in bed and answers questions appropriately Neck: Supple, nontender, midline Respiratory: Clear to auscultation bilaterally. no wheezing or rhonchi Cardiovascular: regular rate and rhythm, no obvious murmurs Gastrointestinal: soft, non-tender to palpation, nondistended. bowel sounds heard. Neurological: Moves all extremities spontaneously Musculoskeletal: Bilateral AKA Skin: small fluctuant area with erythema anteromedial aspect of right thigh/stump SUSAN FAULKNER MD Apr 09, 2018 08:42
[2018-04-09] MEDS: CHOLECALCIFEROL 2,000 UNIT CAP PO SCH ×2 (08:55→20:47)
[2018-04-09] MEDS: FERROUS GLUCONATE (EC) 325 MG TAB PO SCH ×2 (08:55→20:47)
[2018-04-09] MEDS: SPIRONOLACTONE 25 MG TAB PO SCH (08:55)
[2018-04-09] MEDS: COLLAGENASE 5 GM (UD JAR) TOP SCH (08:56)
[2018-04-09] MEDS: GABAPENTIN 100 MG CAP PO SCH ×3 (08:56→20:48)
[2018-04-09] MEDS: MULTIVITAMINS THERAPEUTIC TAB PO SCH (08:56)
[2018-04-09] MEDS: ASCORBIC ACID 500 MG TAB PO SCH ×2 (08:56→20:47)
[2018-04-09] MEDS: SENNA/DOCUSATE NA (8.6MG/50MG) TAB PO SCH (08:57)
[2018-04-09] MEDS: ZINC SULFATE 220 MG CAP PO SCH (08:57)
[2018-04-09] MEDS: NYSTATIN 30 GM POWDER BTL TOP SCH ×2 (08:57→21:01)
[2018-04-09] MEDS: MUPIROCIN 2% 22 GM OINT TOP SCH ×2 (08:57→21:01)
[2018-04-09] MEDS: FUROSEMIDE 40 MG TAB PO SCH (08:58)
[2018-04-09] MEDS: METOPROLOL (XL) 50 MG TAB PO SCH ×2 (08:59→20:44)
[2018-04-09] MEDS: SACUBITRIL/VALSARTAN (24mg-26mg) TABLET PO SCH ×2 (08:59→20:47)
[2018-04-09] MEDS: TIOTROPIUM 18 MCG CAPSULE INHA DEV INH SCH (08:59)
[2018-04-09] MEDS: ENOXAPARIN 40 MG/0.4 ML SYG SC SCH (10:02)
[2018-04-09] MEDS: OXYCODONE/ACETAMINOPHEN (5/325) TAB PO PRN ×2 (10:12→16:03)
[2018-04-09] MEDS ORDERED: HYDROmorphONE 2 MG/ML SYG IV PRN (11:30)
--- NOTE | 2018-04-09 11:44 | CONS ---
Date/Time of Note Date/Time of Note DATE: 04/09/18 TIME: 11:42 Assessment/Plan Assessment/Plan Additional Assessment/Plan 1. Congestive heart failure exacerbation, systolic, acute on chronic- con't diuresis, better now - better now, con;t to keep euvolemic. Better fluid status now. 2. Cardiomyopathy with severely depressed left ventricular ejection fraction with last being approximately 20%- recent drug use, ICD eval if drug free 6 months - no VT/VF noted. 3. Hypertension- well maintained now. 4. Dyslipidemia. 5. History of substance abuse- d/c advised. 6. Chronic obstructive pulmonary disease. 7. Bilateral lower extremity amputation and presenting with right stump pain. 8. Questionable history of intracardiac thrombus not seen by most recent echocardiogram dated 01/06/2018, but with severely depressed ejection fraction at that time of 20%- con't diuresis as tolerated 9. Tobacco intake. 10. SVT-regular recurrent to 160-180. Broke with PO BB. Also questionable WCT right before. Had recurrent SVT o/n 04/01 - in sinus now. Now in sinus - no new ectopy on tele. Consultation Date/Type/Reason Admit Date/Time Mar 29, 2018 at 07:48 Initial Consult Date Requesting Provider: SUSAN FAULKNER MD 24 HR Interval Summary Free Text/Dictation No acute events - BP stable - no CP now. ROS: No fever, no chills, no nausea, no vomiting, no diarrhea/constipation No recent weight changes No chest pain, no PND, no orthopnea - no SOB. No dizziness, blurred vision No thirst, no heat or cold intolerance Exam/Review of Systems Vital Signs Vitals Vital Signs Date Temp Pulse Resp B/P (MAP) Pulse Ox O2 O2 Flow FiO2 Time Delivery Rate 04/09/18 104 08:08 04/09/18 97.9 18 152/73 97 07:51 (99) 04/09/18 21 07:31 04/09/18 Room Air 03:53 04/08/18 3.0 20:09 Intake and Output 04/08/18 04/08/18 04/09/18 1414:59 22:59 06:59 IntakeIntake Total 500 ml 500 ml OutputOutput Total 700 ml 800 ml BalanceBalance -200 ml -300 ml Exam General: WN/WD/NAD, AOx 3 HEENT: Unicetric/atraumatic/EOMI ( follows commands) NECK: JVD elevated, no thyromegaly Lymph: no lymphadenopathy HEART: regular with no S3, II/ systolic murmur at apex, PMI L LUNGS: Coarse sounds ABD: soft, NT, ND, +BS : Intact Neuro: non focal SKIN: chronic changes EXT: amputated. PASTORA CUEVAS MD Apr 09, 2018 11:44
[2018-04-09] MEDS: oxyCODONE (CR) 20 MG TAB [oxyCONTIN] PO PRN ×2 (11:54→20:51)
[2018-04-09] MEDS: DIGOXIN 0.125 MG TAB PO SCH (12:36)
--- NOTE | 2018-04-09 15:25 | CONS ---
Date/Time of Note Date/Time of Note DATE: 04/09/18 TIME: 15:24 Assessment/Plan Assessment/Plan Chief Complaint/Hosp Course Alert feels better good, looks comfortable Antimicrobials: Vancomycin, topical Bactroban Microbiology: All cultures negative, MRSA swab positive Allergy: Tetracycline Physical examination: Well-nourished well-developed elderly -[place] man who is in no distress. Head atraumatic normocephalic neck is supple chest rise symmetrical breath sounds diminished bases. Heart: S1-S2. Abdomen soft bowel sounds present. Extremities without cyanosis patient has bilateral above-knee amputation, right stump painful to touch with some fluctuance and swelling. Skin: Patient has multiple pressure sores Assessment: 1. Persistent leukocytosis secondary to infected right lower extremity stump 2. Status post recurrent CHF 3. COPD 4. Substance abuse 5. Multiple wounds and pressure sores 6. History of methicillin-resistant Staphylococcus aureus infected graft, status post debridement back in 06/2017, per patient, the rest of the graft was removed at [facility], he completed IV vancomycin back in January 7. History of CABG and CT 8. Diabetes 9. MRSA nares colonization Plan: Patient is clinically stable, WBC labeled nuclear scan confirmed infectious process in his right stump, we will add cefepime to the regimen and await for MRI of right lower extremity Consultation Date/Type/Reason Admit Date/Time Mar 29, 2018 at 07:48 Initial Consult Date Type of Consult ID Requesting Provider: SUSAN FAULKNER MD Exam/Review of Systems Vital Signs Vitals Vital Signs Date Temp Pulse Resp B/P (MAP) Pulse Ox O2 O2 Flow FiO2 Time Delivery Rate 04/09/18 92 20 99 21 13:20 04/09/18 98.9 119/62 11:47 (81) 04/09/18 Room Air 03:53 04/08/18 3.0 20:09 Intake and Output 04/08/18 04/08/18 04/09/18 1515:00 23:00 07:00 IntakeIntake Total 500 ml 500 ml OutputOutput Total 700 ml 800 ml BalanceBalance -200 ml -300 ml Medications Medications Current Medications Atorvastatin Calcium (Lipitor) 80 mg QHS PO Last administered on 04/08/18at 21:42; Admin Dose 80 MG; Start 03/28/18 at 21:00 Budesonide (Pulmicort (Neb)) 0.5 mg BID RESP THERAPY HHN Last administered on 04/08/18 20:08; Admin Dose 0.5 MG; Start 03/28/18 at 20:00 Ferrous Gluconate (Fergon) 325 mg BID PO Last administered on 04/09/18 08:55; Admin Dose 325 MG; Start 03/28/18 at 21:00 Albuterol/ Ipratropium (Duoneb) 3 ml Q6HWA RESP THERAPY HHN Last administered on 04/09/18 13:20; Admin Dose 3 ML; Start 03/28/18 at 20:00 Montelukast Sodium (Singulair) 10 mg QHS PO Last administered on 04/08/18 21:41; Admin Dose 10 MG; Start 03/28/18 at 21:00 Pantoprazole (Protonix Tab) 40 mg DAILY@06 PO Last administered on 04/09/18 05:34; Admin Dose 40 MG; Start 03/29/18 at 06:00 Spironolactone (Aldactone) 25 mg DAILY PO Last administered on 04/09/18 08:55; Admin Dose 25 MG; Start 03/29/18 at 09:00 Tamsulosin HCl (Flomax) 0.4 mg HS PO Last administered on 04/08/18 21:42; Admin Dose 0.4 MG; Start 03/28/18 at 21:00 Tiotropium [place] (Spiriva) 1 inh DAILY INH Last administered on 04/09/18 08:59; Admin Dose 1 INH; Start 03/29/18 at 09:00 Albuterol (Proventil 0.083% (Neb)) 2.5 mg Q2H RESP THERAPY PRN HHN SHORTNESS OF BREATH Last administered on 04/06/18at 19:39; Admin Dose 2.5 MG; Start 03/28/18 at 16:30 IV Flush (NS 3 ml) 3 ml PER PROTOCOL IV ; Start 03/28/18 at 16:30 Ondansetron HCl (Zofran Inj) 4 mg Q6H PRN IV NAUSEA AND/OR VOMITING; Start 03/28/18 at 16:30 Nitroglycerin (Nitroglycerin (Sl Tab) 0.4 Mg) 1 tab Q5M PRN SL CHEST PAIN; Start 03/28/18 at 16:30 Acetaminophen (Tylenol Tab) 650 mg Q6H PRN PO PAIN LEVEL 1-3 OR FEVER; Start 03/28/18 at 16:30 Docusate Sodium (Colace) 100 mg Q12H PRN PO CONSTIPATION Last administered on 04/06/18 22:50; Admin Dose 100 MG; Start 03/28/18 at 16:30 Magnesium Hydroxide (Milk Of Mag) 30 ml DAILY PRN PO CONSTIPATION Last administered on 04/06/18 22:50; Admin Dose 30 ML; Start 03/28/18 at 16:30 Enoxaparin Sodium (Lovenox) 40 mg DAILY SC Last administered on 04/09/18 10:02; Admin Dose 40 MG; Start 03/29/18 at 09:00 Sacubitril/ Valsartan (Entresto 24 Mg-26 Mg) 1 tab BID PO Last administered on 04/09/18 08:59; Admin Dose 1 TAB; Start 03/28/18 at 21:00 Nystatin (Nystatin Powder) 1 applic BID TOP Last administered on 04/09/18 08:57; Admin Dose 1 APPLIC; Start 03/28/18 at 21:00 Cholecalciferol (Vitamin D) 2,000 unit BID PO Last administered on 04/09/18 08:55; Admin Dose 2,000 UNIT; Start 03/28/18 at 21:00 Miscellaneous Information (Pending [facility] Order For Wound Care) This patient rivera... PRN PRN XX soiled; Start 03/28/18 at 19:00 Senna/Docusate Sodium (Senokot-S) 2 tab DAILY PO Last administered on 04/09/18 08:57; Admin Dose 2 TAB; Start 03/30/18 at 09:00 Ascorbic Acid (Vitamin C) 500 mg BID PO Last administered on 04/09/18 08:56; Admin Dose 500 MG; Start 03/29/18 at 21:00; Stop 04/12/18 at 20:59 Zinc Sulfate (Zinc Sulfate) 220 mg DAILY PO Last administered on 04/09/18 08:57; Admin Dose 220 MG; Start 03/30/18 at 09:00; Stop 04/13/18 at 08:59 Multivitamins Therapeutic (Theragran) 1 tab DAILY PO Last administered on 08:56; Admin Dose 1 TAB; Start 03/30/18 at 09:00 Gabapentin (Neurontin) 200 mg TID PO Last administered on 04/09/18 12:35; Admin Dose 200 MG; Start 03/30/18 at 13:00 Metoprolol Succinate (Toprol Xl) 50 mg BID PO Last administered on 04/09/18 08:59; Admin Dose 50 MG; Start 03/31/18 at 21:00 Oxycodone HCl (Oxycontin) 20 mg BID PRN PO PAIN LEVEL 6-10 Last administered on 04/09/18 11:54; Admin Dose 20 MG; Start 03/31/18 at 15:00 Digoxin (Digoxin) 0.125 mg DAILY@13 PO Last administered on 04/09/18 12:36; Admin Dose 0.125 MG; Start 04/02/18 at 13:00 Oxycodone/ Acetaminophen (Percocet (5/ 325)) 1 tab Q4H PRN PO MODERATE PAIN LEVEL 4-6 Last administered on 04/09/18 10:12; Admin Dose 1 TAB; Start 04/02/18 at 14:00 Bisacodyl (Dulcolax) 5 mg DAILY PRN PO CONSTIPATION Last administered on 04/05/18 20:24; Admin Dose 5 MG; Start 04/02/18 at 18:30 Collagenase (Santyl) 1 applic DAILY TOP Last administered on 04/09/18 08:56; Admin Dose 1 APPLIC; Start 04/03/18 at 11:00 Vancomycin HCl (Vanco Iv Per Pharmacy) VANCOMYCIN PER PHARMACY PER PROTOCOL XX ; Start 04/04/18 at 17:30 Furosemide (Lasix) 40 mg DAILY PO Last administered on 04/09/18 08:58; Admin Dose 40 MG; Start 04/06/18 at 09:00 Vancomycin HCl 750 mg/Sodium Chloride 150 ml @ 75 mls/hr Q24H IVPB Last administered on 04/08/18 23:44; Admin Dose 75 MLS/HR; Start 04/05/18 at 23:00 Mupirocin (Bactroban) 1 applic BID TOP Last administered on 04/09/18 08:57; Admin Dose 1 APPLIC; Start 04/06/18 at 21:00 Hydromorphone HCl (Dilaudid) 2 mg PRN PRN IV pain when pt going for scan; Start 04/09/18 at 11:30; Stop 04/09/18 at 19:00 NAYELI MADERA NP Apr 09, 2018 15:25
[2018-04-09] MEDS: CEFEPIME 1GM/50 ML (PMX) 50 ML IVPB SCH ×2 (16:23→20:48)
[2018-04-09] MEDS: TAMSULOSIN (SR) 0.4 MG CAP PO SCH (20:47)
[2018-04-09] MEDS: MONTELUKAST 10 MG TAB PO SCH (20:47)
[2018-04-09] MEDS: ATORVASTATIN 80 MG TAB PO SCH (20:47)
[2018-04-09] MEDS: VANCOMYCIN 750 MG in SOD CHLORIDE 0.9% 150 ML IVPB SCH (22:11)
[2018-04-10] VITALS (11 sets, daily range): BP systolic 101–109; BP diastolic 52–60; PULSE 59–110; RESP 18–20
[2018-04-10] MEDS: OXYCODONE/ACETAMINOPHEN (5/325) TAB PO PRN ×4 (02:55→20:51)
[2018-04-10] MEDS: PANTOPRAZOLE (EC) 40 MG TAB PO SCH (06:14)
[2018-04-10] MEDS: ALBUTEROL/IPRATROPIUM (NEB) 3 ML AMP HHN SCH ×3 (08:00→21:37)
[2018-04-10] MEDS ORDERED: INSULIN REGULAR, HUMAN 100 UNIT/1 ML 3ML VIAL IVP STA (08:04)
[2018-04-10] MEDS: BUDESONIDE (NEB) 0.5MG/2ML AMP HHN SCH ×2 (08:06→21:37)
--- NOTE | 2018-04-10 08:27 | PN ---
Date/Time of Note Date/Time of Note DATE: 04/10/18 TIME: 08:26 Assessment/Plan VTE Prophylaxis Risk score (from Nsg)>0 risk: 6 SCD applied (from Nsg): No SCD contraindicated: bilateral amputee Pharmacological prophylaxis: apixaban Lines/Catheters IV Catheter Type (from Nrsg): Saline Lock Urinary Cath still in place: No Assessment/Plan Assessment/Plan 1. Acute infection in right thigh s/p b/l amputations - WBC scan WBC scan shows infectious process in right stump. MRI results soft tissue infection with concern for seroma vs abscess. Will consult ortho for evaluation - ID on board and added cefepime to regime - Pain management on board and appreciate consultation. Will monitor for excess sedation and decrease dose if needed - LE US negative for DVT. 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 Discussed with vascular, Dr. Rodríguez, who said it was chronic and will need to follow up with outpatient clinic at [facility] since RLE amputation was performed there. - PT/OT on board 2. leukocytosis - ID on board and appreciate recommendations - Will consult ortho to evaluate need for surgical intervention for abscess vs seroma 3. Acute on chronic systolic heart failure- resolved - Diuresing well and shortness of breath has resolved - Cardiology consultation appreciated. - Echo results noted from prior admission with EF 20% - BNP at time of admission noted 4. Wounds on elbows and sacrum - wound consultation appreciated 5. CAD - continue all home medications - stable 6. b/l AKA secondary to PVD - PT/OT consultation appreciated 7. Episode of sustained vtach- resolved - Cardiology on board and continues to adjust medications as needed 8. Disposition - Will consult ortho for evaluation of abscess vs seroma - SNF placement when stable Result Diagram: 04/10/18 0505 04/10/18 0505 Results 24hrs Laboratory Tests Test 04/10/18 05:05 White Blood Count 19.8 H Red Blood Count 4.80 Hemoglobin 11.3 L Hematocrit 35.8 L Mean Corpuscular Volume 74.6 L Mean Corpuscular Hemoglobin 23.5 L Mean Corpuscular Hemoglobin Concent 31.6 L Red Cell Distribution Width 21.1 H Platelet Count 430 H Mean Platelet Volume 10.8 H Immature Granulocytes % 0.800 H Neutrophils % 82.4 H Lymphocytes % 6.7 L Monocytes % 9.5 Eosinophils % 0.3 Basophils % 0.3 Nucleated Red Blood Cells % 0.0 Immature Granulocytes # 0.160 H Neutrophils # 16.3 H Lymphocytes # 1.3 Monocytes # 1.9 H Eosinophils # 0.1 Basophils # 0.1 Nucleated Red Blood Cells # 0.0 Sodium Level 133 L Potassium Level 5.2 H Chloride Level 97 Carbon Dioxide Level 26 Anion Gap 10 Blood Urea Nitrogen 23 H Creatinine 0.86 Glucose Level 130 # Calcium Level 9.1 Phosphorus Level 4.3 Magnesium Level 1.8 Albumin 3.0 L Subjective 24 Hr Interval Summary Free Text/Dictation Patient states he's still experiencing pain in right stump as well as buttocks area. No acute overnight events. Exam/Review of Systems Vital Signs Vitals Vital Signs Date Temp Pulse Resp B/P (MAP) Pulse Ox O2 O2 Flow FiO2 Time Delivery Rate 04/10/18 2.0 08:08 04/10/18 82 18 94 Nasal 08:06 Cannula 04/10/18 97.1 103/60 07:46 (74) 04/09/18 21 19:28 Intake and Output 04/09/18 04/09/18 04/10/18 1515:00 23:00 07:00 IntakeIntake Total 750 ml 1000 ml OutputOutput Total 400 ml 400 ml 1450 ml BalanceBalance -400 ml 350 ml -450 ml Exam General: Patient is laying in bed and answers questions appropriately Neck: Supple Respiratory: Clear to auscultation bilaterally. no wheezing or rhonchi Cardiovascular: regular rate and rhythm, no obvious murmurs Gastrointestinal: soft, non-tender to palpation, nondistended. bowel sounds heard. Neurological: Moves all extremities spontaneously Musculoskeletal: Bilateral AKA Skin: small fluctuant area with erythema anteromedial aspect of right thigh/stump Medications Medications Current Medications Atorvastatin Calcium (Lipitor) 80 mg QHS PO Last administered on 04/09/18at 20:47; Admin Dose 80 MG; Start 03/28/18 at 21:00 Budesonide (Pulmicort (Neb)) 0.5 mg BID RESP THERAPY HHN Last administered on 04/09/18at 19:28; Admin Dose 0.5 MG; Start 03/28/18 at 20:00 Ferrous Gluconate (Fergon) 325 mg BID PO Last administered on 04/09/18at 20:47; Admin Dose 325 MG; Start 03/28/18 at 21:00 Albuterol/ Ipratropium (Duoneb) 3 ml Q6HWA RESP THERAPY HHN Last administered on 04/09/18 19:28; Admin Dose 3 ML; Start 03/28/18 at 20:00 Montelukast Sodium (Singulair) 10 mg QHS PO Last administered on 04/09/18 20:47; Admin Dose 10 MG; Start 03/28/18 at 21:00 Pantoprazole (Protonix Tab) 40 mg DAILY@06 PO Last administered on 04/10/18 06:14; Admin Dose 40 MG; Start 03/29/18 at 06:00 Spironolactone (Aldactone) 25 mg DAILY PO Last administered on 04/09/18 08:55; Admin Dose 25 MG; Start 03/29/18 at 09:00 Tamsulosin HCl (Flomax) 0.4 mg HS PO Last administered on 04/09/18 20:47; Admin Dose 0.4 MG; Start 03/28/18 at 21:00 Tiotropium [place] (Spiriva) 1 inh DAILY INH Last administered on 04/09/18 08:59; Admin Dose 1 INH; Start 03/29/18 at 09:00 Albuterol (Proventil 0.083% (Neb)) 2.5 mg Q2H RESP THERAPY PRN HHN SHORTNESS OF BREATH Last administered on 04/06/18at 19:39; Admin Dose 2.5 MG; Start 03/28/18 at 16:30 IV Flush (NS 3 ml) 3 ml PER PROTOCOL IV ; Start 03/28/18 at 16:30 Ondansetron HCl (Zofran Inj) 4 mg Q6H PRN IV NAUSEA AND/OR VOMITING; Start 03/28/18 at 16:30 Nitroglycerin (Nitroglycerin (Sl Tab) 0.4 Mg) 1 tab Q5M PRN SL CHEST PAIN; Start 03/28/18 at 16:30 Acetaminophen (Tylenol Tab) 650 mg Q6H PRN PO PAIN LEVEL 1-3 OR FEVER; Start 03/28/18 at 16:30 Docusate Sodium (Colace) 100 mg Q12H PRN PO CONSTIPATION Last administered on 04/06/18 22:50; Admin Dose 100 MG; Start 03/28/18 at 16:30 Magnesium Hydroxide (Milk Of Mag) 30 ml DAILY PRN PO CONSTIPATION Last ad ministered on 04/06/18at 22:50; Admin Dose 30 ML; Start 03/28/18 at 16:30 Enoxaparin Sodium (Lovenox) 40 mg DAILY SC Last administered on 04/09/18 10:02; Admin Dose 40 MG; Start 03/29/18 at 09:00 Sacubitril/ Valsartan (Entresto 24 Mg-26 Mg) 1 tab BID PO Last administered on 04/09/18 20:47; Admin Dose 1 TAB; Start 03/28/18 at 21:00 Nystatin (Nystatin Powder) 1 applic BID TOP Last administered on 04/09/18 21:01; Admin Dose 1 APPLIC; Start 03/28/18 at 21:00 Cholecalciferol (Vitamin D) 2,000 unit BID PO Last administered on 04/09/18 20:47; Admin Dose 2,000 UNIT; Start 03/28/18 at 21:00 Miscellaneous Information (Pending [facility] Order For Wound Care) This patient rivera... PRN PRN XX soiled; Start 03/28/18 at 19:00 Senna/Docusate Sodium (Senokot-S) 2 tab DAILY PO Last administered on 04/09/18 08:57; Admin Dose 2 TAB; Start 03/30/18 at 09:00 Ascorbic Acid (Vitamin C) 500 mg BID PO Last administered on 04/09/18 20:47; Admin Dose 500 MG; Start 03/29/18 at 21:00; Stop 04/12/18 at 20:59 Zinc Sulfate (Zinc Sulfate) 220 mg DAILY PO Last administered on 04/09/18 08:57; Admin Dose 220 MG; Start 03/30/18 at 09:00; Stop 04/13/18 at 08:59 Multivitamins Therapeutic (Theragran) 1 tab DAILY PO Last administered on 04/09/18 08:56; Admin Dose 1 TAB; Start 03/30/18 at 09:00 Gabapentin (Neurontin) 200 mg TID PO Last administered on 04/09/18 20:48; Admin Dose 200 MG; Start 03/30/18 at 13:00 Metoprolol Succinate (Toprol Xl) 50 mg BID PO Last administered on 04/09/18 20:44; Admin Dose 50 MG; Start 03/31/18 at 21:00 Oxycodone HCl (Oxycontin) 20 mg BID PRN PO PAIN LEVEL 6-10 Last administered on 04/09/18 20:51; Admin Dose 20 MG; Start 03/31/18 at 15:00 Digoxin (Digoxin) 0.125 mg DAILY@13 PO Last administered on 04/09/18 12:36; Admin Dose 0.125 MG; Start 04/02/18 at 13:00 Oxycodone/ Acetaminophen (Percocet (5/ 325)) 1 tab Q4H PRN PO MODERATE PAIN LE LEONARD 4-6 Last administered on 04/10/18 02:55; Admin Dose 1 TAB; Start 04/02/18 at 14:00 Bisacodyl (Dulcolax) 5 mg DAILY PRN PO CONSTIPATION Last administered on 04/05/18 20:24; Admin Dose 5 MG; Start 04/02/18 at 18:30 Collagenase (Santyl) 1 applic DAILY TOP Last administered on 04/09/18 08:56; Admin Dose 1 APPLIC; Start 04/03/18 at 11:00 Vancomycin HCl (Vanco Iv Per Pharmacy) VANCOMYCIN PER PHARMACY PER PROTOCOL XX ; Start 04/04/18 at 17:30 Furosemide (Lasix) 40 mg DAILY PO Last administered on 04/09/18 08:58; Admin Dose 40 MG; Start 04/06/18 at 09:00 Vancomycin HCl 750 mg/Sodium Chloride 150 ml @ 75 mls/hr Q24H IVPB Last administered on 04/09/18 22:11; Admin Dose 75 MLS/HR; Start 04/05/18 at 23:00 Mupirocin (Bactroban) 1 applic BID TOP Last administered on 04/09/18 21:01; Admin Dose 1 APPLIC; Start 04/06/18 at 21:00 Cefepime HCl 50 ml @ 100 mls/hr Q12 IVPB Last administered on 04/09/18 20:48; Admin Dose 100 MLS/HR; Start 04/09/18 at 15:30 Dextrose (D50w Syringe) ONCE PRN IV DECREASED GLUCOSE; Start 04/10/18 at 08:30; Stop 04/10/18 at 23:00 SUSAN FAULKNER MD Apr 10, 2018 08:26
[2018-04-10] MEDS ORDERED: DEXTROSE 50% 50 ML SYRINGE IV PRN (08:30)
[2018-04-10] MEDS: TIOTROPIUM 18 MCG CAPSULE INHA DEV INH SCH (09:00)
[2018-04-10] MEDS: ENOXAPARIN 40 MG/0.4 ML SYG SC SCH (09:24)
[2018-04-10] MEDS: METOPROLOL (XL) 50 MG TAB PO SCH ×2 (09:27→21:08)
[2018-04-10] MEDS: CHOLECALCIFEROL 2,000 UNIT CAP PO SCH ×2 (09:28→21:07)
[2018-04-10] MEDS: SACUBITRIL/VALSARTAN (24mg-26mg) TABLET PO SCH ×2 (09:28→20:49)
[2018-04-10] MEDS: COLLAGENASE 5 GM (UD JAR) TOP SCH (09:28)
[2018-04-10] MEDS: GABAPENTIN 100 MG CAP PO SCH ×3 (09:28→20:48)
[2018-04-10] MEDS: FERROUS GLUCONATE (EC) 325 MG TAB PO SCH ×2 (09:28→21:07)
[2018-04-10] MEDS: ZINC SULFATE 220 MG CAP PO SCH (09:28)
[2018-04-10] MEDS: SPIRONOLACTONE 25 MG TAB PO SCH (09:29)
[2018-04-10] MEDS: MUPIROCIN 2% 22 GM OINT TOP SCH ×2 (09:29→21:09)
[2018-04-10] MEDS: MULTIVITAMINS THERAPEUTIC TAB PO SCH (09:29)
[2018-04-10] MEDS: SENNA/DOCUSATE NA (8.6MG/50MG) TAB PO SCH (09:29)
[2018-04-10] MEDS: NYSTATIN 30 GM POWDER BTL TOP SCH ×2 (09:29→21:09)
[2018-04-10] MEDS: CEFEPIME 1GM/50 ML (PMX) 50 ML IVPB SCH ×2 (09:29→21:10)
[2018-04-10] MEDS: ASCORBIC ACID 500 MG TAB PO SCH ×2 (09:29→20:49)
[2018-04-10] MEDS: FUROSEMIDE 40 MG TAB PO SCH (09:30)
--- NOTE | 2018-04-10 11:10 | CONS ---
Date/Time of Note Date/Time of Note DATE: 04/10/18 TIME: 11:08 Assessment/Plan Assessment/Plan Chief Complaint/Hosp Course All noted, no fevers, looks comfortable Antimicrobials: Cefepime, Vancomycin, topical Bactroban Microbiology: All cultures negative, MRSA swab positive Allergy: Tetracycline Physical examination: Well-nourished well-developed elderly -[place] Citizen man who is in no distress. Head atraumatic normocephalic neck is supple chest rise symmetrical breath sounds diminished bases. Heart: S1-S2. Abdomen soft bowel sounds present. Extremities without cyanosis patient has bilateral above-knee amputation, right stump painful to touch with some fluctuance and swelling. Skin: Patient has multiple pressure sores Assessment: 1. Persistent leukocytosis secondary to infected right lower extremity stump, possible abscess 2. Status post recurrent CHF 3. COPD 4. Substance abuse 5. Multiple wounds and pressure sores 6. History of methicillin-resistant Staphylococcus aureus infected graft, status post debridement back in 06/2017, per patient, the rest of the graft was removed at [facility], he completed IV vancomycin back in January 7. History of CABG and FL 8. Diabetes 9. MRSA nares colonization Plan: MRI noted, consider CT with IV contrast and surgical evaluation, continue abx Consultation Date/Type/Reason Admit Date/Time Mar 29, 2018 at 07:48 Initial Consult Date Type of Consult ID Requesting Provider: SUSAN FAULKNER MD Exam/Review of Systems Vital Signs Vitals Vital Signs Date Temp Pulse Resp B/P (MAP) Pulse Ox O2 O2 Flow FiO2 Time Delivery Rate 04/10/18 2.0 08:08 04/10/18 82 18 94 Nasal 08:06 Cannula 04/10/18 97.1 103/60 07:46 (74) 04/09/18 21 19:28 Intake and Output 04/09/18 04/09/18 04/10/18 1515:00 23:00 07:00 IntakeIntake Total 750 ml 1000 ml OutputOutput Total 400 ml 400 ml 1450 ml BalanceBalance -400 ml 350 ml -450 ml Medications Medications Current Medications Atorvastatin Calcium (Lipitor) 80 mg QHS PO Last administered on 04/09/18at 20:47; Admin Dose 80 MG; Start 03/28/18 at 21:00 Budesonide (Pulmicort (Neb)) 0.5 mg BID RESP THERAPY HHN Last administered on 04/09/18 19:28; Admin Dose 0.5 MG; Start 03/28/18 at 20:00 Ferrous Gluconate (Fergon) 325 mg BID PO Last administered on 04/10/18 09:28; Admin Dose 325 MG; Start 03/28/18 at 21:00 Albuterol/ Ipratropium (Duoneb) 3 ml Q6HWA RESP THERAPY HHN Last administered on 04/09/18 19:28; Admin Dose 3 ML; Start 03/28/18 at 20:00 Montelukast Sodium (Singulair) 10 mg QHS PO Last administered on 04/09/18 20:47; Admin Dose 10 MG; Start 03/28/18 at 21:00 Pantoprazole (Protonix Tab) 40 mg DAILY@06 PO Last administered on 04/10/18 06:14; Admin Dose 40 MG; Start 03/29/18 at 06:00 Spironolactone (Aldactone) 25 mg DAILY PO Last administered on 04/10/18 09:29; Admin Dose 25 MG; Start 03/29/18 at 09:00 Tamsulosin HCl (Flomax) 0.4 mg HS PO Last administered on 04/09/18 20:47; Admin Dose 0.4 MG; Start 03/28/18 at 21:00 Tiotropium [place] (Spiriva) 1 inh DAILY INH Last administered on 04/09/18 08:59; Admin Dose 1 INH; Start 03/29/18 at 09:00 Albuterol (Proventil 0.083% (Neb)) 2.5 mg Q2H RESP THERAPY PRN HHN SHORTNESS OF BREATH Last administered on 04/06/18at 19:39; Admin Dose 2.5 MG; Start 03/28/18 at 16:30 IV Flush (NS 3 ml) 3 ml PER PROTOCOL IV ; Start 03/28/18 at 16:30 Ondansetron HCl (Zofran Inj) 4 mg Q6H PRN IV NAUSEA AND/OR VOMITING; Start 03/28/18 at 16:30 Nitroglycerin (Nitroglycerin (Sl Tab) 0.4 Mg) 1 tab Q5M PRN SL CHEST PAIN; Start 03/28/18 at 16:30 Acetaminophen (Tylenol Tab) 650 mg Q6H PRN PO PAIN LEVEL 1-3 OR FEVER; Start 03/28/18 at 16:30 Docusate Sodium (Colace) 100 mg Q12H PRN PO CONSTIPATION Last administered on 04/06/18 22:50; Admin Dose 100 MG; Start 03/28/18 at 16:30 Magnesium Hydroxide (Milk Of Mag) 30 ml DAILY PRN PO CONSTIPATION Last administ ered on 04/06/18 22:50; Admin Dose 30 ML; Start 03/28/18 at 16:30 Enoxaparin Sodium (Lovenox) 40 mg DAILY SC Last administered on 04/10/18 09:24; Admin Dose 40 MG; Start 03/29/18 at 09:00 Sacubitril/ Valsartan (Entresto 24 Mg-26 Mg) 1 tab BID PO Last administered on 04/10/18 09:28; Admin Dose 1 TAB; Start 03/28/18 at 21:00 Nystatin (Nystatin Powder) 1 applic BID TOP Last administered on 04/10/18 09:29; Admin Dose 1 APPLIC; Start 03/28/18 at 21:00 Cholecalciferol (Vitamin D) 2,000 unit BID PO Last administered on 04/10/18 09:28; Admin Dose 2,000 UNIT; Start 03/28/18 at 21:00 Miscellaneous Information (Pending [facility] Order For Wound Care) This patient rivera... PRN PRN XX soiled; Start 03/28/18 at 19:00 Senna/Docusate Sodium (Senokot-S) 2 tab DAILY PO Last administered on 04/10/18 09:29; Admin Dose 2 TAB; Start 03/30/18 at 09:00 Ascorbic Acid (Vitamin C) 500 mg BID PO Last administered on 04/10/18 09:29; Admin Dose 500 MG; Start 03/29/18 at 21:00; Stop 04/12/18 at 20:59 Zinc Sulfate (Zinc Sulfate) 220 mg DAILY PO Last administered on 04/10/18 09:28; Admin Dose 220 MG; Start 03/30/18 at 09:00; Stop 04/13/18 at 08:59 Multivitamins Therapeutic (Theragran) 1 tab DAILY PO Last administered on 04/10/18 09:29; Admin Dose 1 TAB; Start 03/30/18 at 09:00 Gabapentin (Neurontin) 200 mg TID PO Last administered on 04/10/18 09:28; Admin Dose 200 MG; Start 03/30/18 at 13:00 Metoprolol Succinate (Toprol Xl) 50 mg BID PO Last administered on 04/10/18 09:27; Admin Dose 50 MG; Start 03/31/18 at 21:00 Oxycodone HCl (Oxycontin) 20 mg BID PRN PO PAIN LEVEL 6-10 Last administered on 04/09/18 20:51; Admin Dose 20 MG; Start 03/31/18 at 15:00 Digoxin (Digoxin) 0.125 mg DAILY@13 PO Last administered on 04/09/18 12:36; Admin Dose 0.125 MG; Start 04/02/18 at 13:00 Oxycodone/ Acetaminophen (Percocet (5/ 325)) 1 tab Q4H PRN PO MODERATE PAIN LEVEL 4-6 Last administered on 04/10/18 09:26; Admin Dose 1 TAB; Start 04/02/18 at 14:00 Bisacodyl (Dulcolax) 5 mg DAILY PRN PO CONSTIPATION Last administered on 04/05/18 20:24; Admin Dose 5 MG; Start 04/02/18 at 18:30 Collagenase (Santyl) 1 applic DAILY TOP Last administered on 04/10/18 09:28; Admin Dose 1 APPLIC; Start 04/03/18 at 11:00 Vancomycin HCl (Vanco Iv Per Pharmacy) VANCOMYCIN PER PHARMACY PER PROTOCOL XX ; Start 04/04/18 at 17:30 Furosemide (Lasix) 40 mg DAILY PO Last administered on 04/10/18 09:30; Admin Dose 40 MG; Start 04/06/18 at 09:00 Vancomycin HCl 750 mg/Sodium Chloride 150 ml @ 75 mls/hr Q24H IVPB Last administered on 04/09/18 22:11; Admin Dose 75 MLS/HR; Start 04/05/18 at 23:00 Mupirocin (Bactroban) 1 applic BID TOP Last administered on 04/10/18 09:29; Admin Dose 1 APPLIC; Start 04/06/18 at 21:00 Cefepime HCl 50 ml @ 100 mls/hr Q12 IVPB Last administered on 12/25/18at 09:29; Admin Dose 100 MLS/HR; Start 04/09/18 at 15:30 Dextrose (D50w Syringe) ONCE PRN IV DECREASED GLUCOSE; Start 04/10/18 at 08:30; Stop 04/10/18 at 23:00 NAYELI MADERA NP Apr 10, 2018 11:10
[2018-04-10] MEDS ORDERED: HYDROmorphONE 0.5 MG/0.5 ML SYG IV PRN (11:30)
[2018-04-10] MEDS: oxyCODONE (CR) 20 MG TAB [oxyCONTIN] PO PRN (12:03)
[2018-04-10] MEDS: DIGOXIN 0.125 MG TAB PO SCH (12:06)
--- NOTE | 2018-04-10 12:38 | CONS ---
Date/Time of Note Date/Time of Note DATE: 04/10/18 TIME: 12:37 Assessment/Plan Assessment/Plan Additional Assessment/Plan 1. Congestive heart failure exacerbation, systolic, acute on chronic- con't diuresis, better now - better now, con;t to keep euvolemic. Better fluid status now. Will keep euvolemic. 2. Cardiomyopathy with severely depressed left ventricular ejection fraction with last being approximately 20%- recent drug use, ICD eval if drug free 6 months - no VT/VF noted. 3. Hypertension- well maintained now. Treated. 4. Dyslipidemia. 5. History of substance abuse- d/c advised. 6. Chronic obstructive pulmonary disease. 7. Bilateral lower extremity amputation and presenting with right stump pain. 8. Questionable history of intracardiac thrombus not seen by most recent echocardiogram dated 01/06/2018, but with severely depressed ejection fraction at that time of 20%- con't diuresis as tolerated - better now. 9. Tobacco intake. 10. SVT-regular recurrent to 160-180. Broke with PO BB. NO recurrence now. Consultation Date/Type/Reason Admit Date/Time Mar 29, 2018 at 07:48 Initial Consult Date Requesting Provider: SUSAN FAULKNER MD 24 HR Interval Summary Free Text/Dictation NO acute events - pt stable - BP in good range - will monitor clinically. ROS: No fever, no chills, no nausea, no vomiting, no diarrhea/constipation No recent weight changes No chest pain, no PND, no orthopnea - improved SOB No dizziness, blurred vision No thirst, no heat or cold intolerance Exam/Review of Systems Vital Signs Vitals Vital Signs Date Temp Pulse Resp B/P (MAP) Pulse Ox O2 O2 Flow FiO2 Time Delivery Rate 04/10/18 103 12:00 04/10/18 97.1 20 101/58 94 Room Air 11:07 (72) 04/10/18 2.0 08:08 04/09/18 21 19:28 Intake and Output 04/09/18 04/09/18 04/10/18 1515:00 23:00 07:00 IntakeIntake Total 750 ml 1000 ml OutputOutput Total 400 ml 400 ml 1450 ml BalanceBalance -400 ml 350 ml -450 ml Exam General: WN/WD/NAD, AOx 2-3 HEENT: Unicetric/atraumatic/EOMI (follow commands) NECK: JVD elevated, no thyromegaly Lymph: no lymphadenopathy HEART: regular with no S3, II/ systolic murmur at apex, PMI L LUNGS: Coarse sounds ABD: soft, NT, ND, +BS : Intact Neuro: non focal SKIN: chronic changes EXT: high amputations Medications Medications Current Medications Atorvastatin Calcium (Lipitor) 80 mg QHS PO Last administered on 04/09/18 20:47; Admin Dose 80 MG; Start 03/28/18 at 21:00 Budesonide (Pulmicort (Neb)) 0.5 mg BID RESP THERAPY HHN Last administered on 04/09/18 19:28; Admin Dose 0.5 MG; Start 03/28/18 at 20:00 Ferrous Gluconate (Fergon) 325 mg BID PO Last administered on 04/10/18 09:28; Admin Dose 325 MG; Start 03/28/18 at 21:00 Albuterol/ Ipratropium (Duoneb) 3 ml Q6HWA RESP THERAPY HHN Last administered on 04/09/18 19:28; Admin Dose 3 ML; Start 03/28/18 at 20:00 Montelukast Sodium (Singulair) 10 mg QHS PO Last administered on 04/09/18 20 :47; Admin Dose 10 MG; Start 03/28/18 at 21:00 Pantoprazole (Protonix Tab) 40 mg DAILY@06 PO Last administered on 04/10/18 0 6:14; Admin Dose 40 MG; Start 03/29/18 at 06:00 Spironolactone (Aldactone) 25 mg DAILY PO Last administered on 04/10/18 09:2 9; Admin Dose 25 MG; Start 03/29/18 at 09:00 Tamsulosin HCl (Flomax) 0.4 mg HS PO Last administered on 04/09/18 20:47; Admin Dose 0.4 MG; Start 03/28/18 at 21:00 Tiotropium [place] (Spiriva) 1 inh DAILY INH Last administered on 04/09/18 08:59; Admin Dose 1 INH; Start 03/29/18 at 09:00 Albuterol (Proventil 0.083% (Neb)) 2.5 mg Q2H RESP THERAPY PRN HHN SHORTNESS OF BREATH Last administered on 04/06/18 19:39; Admin Dose 2.5 MG; Start 03/28/18 at 16:30 IV Flush (NS 3 ml) 3 ml PER PROTOCOL IV ; Start 03/28/18 at 16:30 Ondansetron HCl (Zofran Inj) 4 mg Q6H PRN IV NAUSEA AND/OR VOMITING; Start 03/28/18 at 16:30 Nitroglycerin (Nitroglycerin (Sl Tab) 0.4 Mg) 1 tab Q5M PRN SL CHEST PAIN; Start 03/28/18 at 16:30 Acetaminophen (Tylenol Tab) 650 mg Q6H PRN PO PAIN LEVEL 1-3 OR FEVER; Start 03/28/18 at 16:30 Docusate Sodium (Colace) 100 mg Q12H PRN PO CONSTIPATION Last administered on 04/06/18 22:50; Admin Dose 100 MG; Start 03/28/18 at 16:30 Magnesium Hydroxide (Milk Of Mag) 30 ml DAILY PRN PO CONSTIPATION Last administered on 04/06/18 22:50; Admin Dose 30 ML; Start 03/28/18 at 16:30 Enoxaparin Sodium (Lovenox) 40 mg DAILY SC Last administered on 04/10/18 09:24; Admin Dose 40 MG; Start 03/29/18 at 09:00 Sacubitril/ Valsartan (Entresto 24 Mg-26 Mg) 1 tab BID PO Last administered on 04/10/18 09:28; Admin Dose 1 TAB; Start 03/28/18 at 21:00 Nystatin (Nystatin Powder) 1 applic BID TOP Last administered on 04/10/18 09:29; Admin Dose 1 APPLIC; Start 03/28/18 at 21:00 Cholecalciferol (Vitamin D) 2,000 unit BID PO Last administered on 04/10/18 09:28; Admin Dose 2,000 UNIT; Start 03/28/18 at 21:00 Miscellaneous Information (Pending [facility] Order For Wound Care) This patient rivera... PRN PRN XX soiled; Start 03/28/18 at 19:00 Senna/Docusate Sodium (Senokot-S) 2 tab DAILY PO Last administered on 04/10/18 09:29; Admin Dose 2 TAB; Start 03/30/18 at 09:00 Ascorbic Acid (Vitamin C) 500 mg BID PO Last administered on 04/10/18 09:29; Admin Dose 500 MG; Start 03/29/18 at 21:00; Stop 04/12/18 at 20:59 Zinc Sulfate (Zinc Sulfate) 220 mg DAILY PO Last administered on 04/10/18 09:28; Admin Dose 220 MG; Start 03/30/18 at 09:00; Stop 04/13/18 at 08:59 Multivitamins Therapeutic (Theragran) 1 tab DAILY PO Last administered on 04/10/18 09:29; Admin Dose 1 TAB; Start 03/30/18 at 09:00 Gabapentin (Neurontin) 200 mg TID PO Last administered on 04/10/18 12:06; Admin Dose 200 MG; Start 03/30/18 at 13:00 Metoprolol Succinate (Toprol Xl) 50 mg BID PO Last administered on 04/10/18 09:27; Admin Dose 50 MG; Start 03/31/18 at 21:00 Oxycodone HCl (Oxycontin) 20 mg BID PRN PO PAIN LEVEL 6-10 Last administered on 04/10/18 12:03; Admin Dose 20 MG; Start 03/31/18 at 15:00 Digoxin (Digoxin) 0.125 mg DAILY@13 PO Last administered on 04/10/18 12:06; Admin Dose 0.125 MG; Start 04/02/18 at 13:00 Oxycodone/ Acetaminophen (Percocet (5/ 325)) 1 tab Q4H PRN PO MODERATE PAIN LEVEL 4-6 Last administered on 04/10/18 09:26; Admin Dose 1 TAB; Start 04/02/18 at 14:00 Bisacodyl (Dulcolax) 5 mg DAILY PRN PO CONSTIPATION Last administered on 04/05/18 20:24; Admin Dose 5 MG; Start 04/02/18 at 18:30 Collagenase (Santyl) 1 applic DAILY TOP Last administered on 04/10/18 09:28; Admin Dose 1 APPLIC; Start 04/03/18 at 11:00 Vancomycin HCl (Vanco Iv Per Pharmacy) VANCOMYCIN PER PHARMACY PER PROTOCOL XX ; Start 04/04/18 at 17:30 Furosemide (Lasix) 40 mg DAILY PO Last administered on 04/10/18 09:30; Admin Dose 40 MG; Start 04/06/18 at 09:00 Vancomycin HCl 750 mg/Sodium Chloride 150 ml @ 75 mls/hr Q24H IVPB Last administered on 04/09/18at 22:11; Admin Dose 75 MLS/HR; Start 04/05/18 at 23:00 Mupirocin (Bactroban) 1 applic BID TOP Last administered on 04/10/18at 09:29; Admin Dose 1 APPLIC; Start 04/06/18 at 21:00 Cefepime HCl 50 ml @ 100 mls/hr Q12 IVPB Last administered on 04/10/18at 09:29; Admin Dose 100 MLS/HR; Start 04/09/18 at 15:30 Dextrose (D50w Syringe) ONCE PRN IV DECREASED GLUCOSE; Start 04/10/18 at 08:30; Stop 04/10/18 at 23:00 Hydromorphone HCl (Dilaudid) 0.5 mg ONCE PRN IV prior to CT scan; Start 04/10/18 at 11:30; Stop 04/10/18 at 23:59 PASTORA CUEVAS MD Apr 10, 2018 12:38
[2018-04-10] MEDS: ATORVASTATIN 80 MG TAB PO SCH (20:48)
[2018-04-10] MEDS: TAMSULOSIN (SR) 0.4 MG CAP PO SCH (20:48)
[2018-04-10] MEDS: MONTELUKAST 10 MG TAB PO SCH (20:49)
[2018-04-10] MEDS: VANCOMYCIN 750 MG in SOD CHLORIDE 0.9% 150 ML IVPB SCH (23:26)
[2018-04-11] VITALS (14 sets, daily range): BP systolic 102–117; BP diastolic 55–64; PULSE 66–110; RESP 16–20
[2018-04-11] MEDS: oxyCODONE (CR) 20 MG TAB [oxyCONTIN] PO PRN ×2 (02:59→19:20)
[2018-04-11] MEDS: OXYCODONE/ACETAMINOPHEN (5/325) TAB PO PRN ×3 (05:21→21:14)
[2018-04-11] MEDS: PANTOPRAZOLE (EC) 40 MG TAB PO SCH (05:21)
[2018-04-11] MEDS: BUDESONIDE (NEB) 0.5MG/2ML AMP HHN SCH ×2 (08:15→21:42)
[2018-04-11] MEDS: ALBUTEROL/IPRATROPIUM (NEB) 3 ML AMP HHN SCH ×3 (08:15→21:42)
--- NOTE | 2018-04-11 08:22 | PN ---
Date/Time of Note Date/Time of Note DATE: 04/11/18 TIME: 08:22 Assessment/Plan VTE Prophylaxis Risk score (from Nsg)>0 risk: 8 SCD applied (from Ns): No SCD contraindicated: bilateral amputee Pharmacological prophylaxis: apixaban Lines/Catheters IV Catheter Type (from [facility]): [place] Urinary Cath still in place: No Assessment/Plan Assessment/Plan 1. Acute infection in right thigh s/p b/l amputations - CT scan more suspicious of abscess. Will need drainage and will ask General surgery to assess. - ID on board and appreciate recommendations - Pain management on board and appreciate consultation. - LE US negative for DVT. 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 Discussed with vascular, Dr. Rodríguez, who said it was chronic and will need to follow up with outpatient clinic at [facility] since RLE amputation was performed there. - PT/OT on board 2. leukocytosis - ID on board and appreciate recommendations 3. Acute on chronic systolic heart failure- resolved - Diuresing well and shortness of breath has resolved - Cardiology consultation appreciated. - Echo results noted from prior admission with EF 20% - BNP at time of admission noted 4. Wounds on elbows and sacrum - wound consultation appreciated 5. CAD - continue all home medications - stable 6. b/l AKA secondary to PVD - PT/OT consultation appreciated 7. Episode of sustained vtach- resolved - Cardiology on board and continues to adjust medications as needed 8. Disposition - Will consult gen surgery for evaluation of right abscess Result Diagram: 04/11/18 0525 04/11/18 0525 Results 24hrs Laboratory Tests Test 04/10/18 09:25 04/10/18 10:01 04/11/18 05:25 Bedside Glucose 160 148 White Blood Count 18.5 H Red Blood Count 4.75 Hemoglobin 11.1 L Hematocrit 34.7 L Mean Corpuscular Volume 73.1 L Mean Corpuscular Hemoglobin 23.4 L Mean Corpuscular 32.0 Hemoglobin Concent Red Cell Distribution Width 21.0 H Platelet Count 443 H Mean Platelet Volume 10.8 H Immature Granulocytes % 0.700 H Neutrophils % 84.6 H Lymphocytes % 6.3 L Monocytes % 7.9 Eosinophils % 0.2 Basophils % 0.3 Nucleated Red Blood Cells % 0.0 Immature Granulocytes # 0.130 H Neutrophils # 15.7 H Lymphocytes # 1.2 Monocytes # 1.5 H Eosinophils # 0.0 Basophils # 0.1 Nucleated Red Blood Cells # 0.0 Sodium Level 135 Potassium Level 4.9 Chloride Level 97 Carbon Dioxide Level 25 Anion Gap 13 Blood Urea Nitrogen 20 Creatinine 0.76 Glucose Level 118 Calcium Level 9.2 Phosphorus Level 4.0 Magnesium Level 1.9 Albumin 3.1 L Subjective 24 Hr Interval Summary Free Text/Dictation Patient still with same pain as yesterday. Requesting Dilaudid but discussed only given due to procedures needed yesterday. Exam/Review of Systems Vital Signs Vitals Vital Signs Date Temp Pulse Resp B/P (MAP) Pulse Ox O2 O2 Flow FiO2 Time Delivery Rate 04/11/18 98.5 98 16 102/57 96 Room Air 07:57 (72) 04/10/18 2.0 14:15 04/09/18 21 19:28 Intake and Output 04/10/18 04/10/18 04/11/18 1515:00 23:00 07:00 IntakeIntake Total 50 ml 750 ml OutputOutput Total 150 ml 1375 ml BalanceBalance -100 ml -625 ml Exam General: Patient is laying in bed and answers questions appropriately Neck: Supple Respiratory: Clear to auscultation bilaterally. no wheezing or rhonchi Cardiovascular: regular rate and rhythm, no obvious murmurs Gastrointestinal: soft, non-tender to palpation, nondistended. bowel sounds heard. Neurological: Moves all extremities spontaneously Musculoskeletal: Bilateral AKA Skin: small fluctuant area with erythema anteromedial aspect of right thigh/stump Medications Medications Current Medications Atorvastatin Calcium (Lipitor) 80 mg QHS PO Last administered on 04/10/18at 20:48; Admin Dose 80 MG; Start 03/28/18 at 21:00 Budesonide (Pulmicort (Neb)) 0.5 mg BID RESP THERAPY HHN Last administered on 04/11/18 08:15; Admin Dose 0.5 MG; Start 03/28/18 at 20:00 Ferrous Gluconate (Fergon) 325 mg BID PO Last administered on 04/10/18 21:07; Admin Dose 325 MG; Start 03/28/18 at 21:00 Albuterol/ Ipratropium (Duoneb) 3 ml Q6HWA RESP THERAPY HHN Last administered on 12/26/18at 08:15; Admin Dose 3 ML; Start 03/28/18 at 20:00 Montelukast Sodium (Singulair) 10 mg QHS PO Last administered on 04/10/18at 20:49; Admin Dose 10 MG; Start 03/28/18 at 21:00 Pantoprazole (Protonix Tab) 40 mg DAILY@06 PO Last administered on 04/11/18at 05:21; Admin Dose 40 MG; Start 03/29/18 at 06:00 Spironolactone (Aldactone) 25 mg DAILY PO Last administered on 04/10/18at 09:29; Admin Dose 25 MG; Start 03/29/18 at 09:00 Tamsulosin HCl (Flomax) 0.4 mg HS PO Last administered on 04/10/18at 20:48; Admin Dose 0.4 MG; Start 03/28/18 at 21:00 Tiotropium [place] (Spiriva) 1 inh DAILY INH Last administered on 04/09/18at 08:59; Admin Dose 1 INH; Start 03/29/18 at 09:00 Albuterol (Proventil 0.083% (Neb)) 2.5 mg Q2H RESP THERAPY PRN HHN SHORTNESS OF BREATH Last administered on 04/06/18at 19:39; Admin Dose 2.5 MG; Start 03/28/18 at 16:30 IV Flush (NS 3 ml) 3 ml PER PROTOCOL IV ; Start 03/28/18 at 16:30 Ondansetron HCl (Zofran Inj) 4 mg Q6H PRN IV NAUSEA AND/OR VOMITING; Start 03/28/18 at 16:30 Nitroglycerin (Nitroglycerin (Sl Tab) 0.4 Mg) 1 tab Q5M PRN SL CHEST PAIN; Start 03/28/18 at 16:30 Acetaminophen (Tylenol Tab) 650 mg Q6H PRN PO PAIN LEVEL 1-3 OR FEVER; Start 03/28/18 at 16:30 Docusate Sodium (Colace) 100 mg Q12H PRN PO CONSTIPATION Last administered on 04/06/18at 22:50; Admin Dose 100 MG; Start 03/28/18 at 16:30 Magnesium Hydroxide (Milk Of Mag) 30 ml DAILY PRN PO CONSTIPATION Last administered on 04/06/18at 22:50; Admin Dose 30 ML; Start 03/28/18 at 16:30 Enoxaparin Sodium (Lovenox) 40 mg DAILY SC Last administered on 04/10/18 09:24; Admin Dose 40 MG; Start 03/29/18 at 09:00 Sacubitril/ Valsartan (Entresto 24 Mg-26 Mg) 1 tab BID PO Last administered on 04/10/18 20:49; Admin Dose 1 TAB; Start 03/28/18 at 21:00 Nystatin (Nystatin Powder) 1 applic BID TOP Last administered on 04/10/18 21:09; Admin Dose 1 APPLIC; Start 03/28/18 at 21:00 Cholecalciferol (Vitamin D) 2,000 unit BID PO Last administered on 04/10/18 21:07; Admin Dose 2,000 UNIT; Start 03/28/18 at 21:00 [facility] This patient rivera... PRN PRN XX soiled; Start 03/28/18 at 19:00 Senna/Docusate Sodium (Senokot-S) 2 tab DAILY PO Last administered on 04/10/18 09:29; Admin Dose 2 TAB; Start 03/30/18 at 09:00 Ascorbic Acid (Vitamin C) 500 mg BID PO Last administered on 04/10/18 20:49; Admin Dose 500 MG; Start 03/29/18 at 21:00; Stop 04/12/18 at 20:59 Zinc Sulfate (Zinc Sulfate) 220 mg DAILY PO Last administered on 04/10/18 09:28; Admin Dose 220 MG; Start 03/30/18 at 09:00; Stop 04/13/18 at 08:59 Multivitamins Therapeutic (Theragran) 1 tab DAILY PO Last administered on 04/10/18 09:29; Admin Dose 1 TAB; Start 03/30/18 at 09:00 Gabapentin (Neurontin) 200 mg TID PO Last administered on 04/10/18 20:48; Admin Dose 200 MG; Start 03/30/18 at 13:00 Metoprolol Succinate (Toprol Xl) 50 mg BID PO Last administered on 04/10/18 21:08; Admin Dose 50 MG; Start 03/31/18 at 21:00 Oxycodone HCl (Oxycontin) 20 mg BID PRN PO PAIN LEVEL 6-10 Last administered on 04/11/18 02:59; Admin Dose 20 MG; Start 03/31/18 at 15:00 Digoxin (Digoxin) 0.125 mg DAILY@13 PO Last administered on 04/10/18 12:06; Admin Dose 0.125 MG; Start 04/02/18 at 13:00 Oxycodone/ Acetaminophen (Percocet (5/ 325)) 1 tab Q4H PRN PO MODERATE PAIN LEVEL 4-6 Last administered on 04/11/18 05:21; Admin Dose 1 TAB; Start 04/02/18 at 14:00 Bisacodyl (Dulcolax) 5 mg DAILY PRN PO CONSTIPATION Last administered on 04/05/18 20:24; Admin Dose 5 MG; Start 04/02/18 at 18:30 Collagenase (Santyl) 1 applic DAILY TOP Last administered on 04/10/18 09:28; Admin Dose 1 APPLIC; Start 04/03/18 at 11:00 Vancomycin HCl (Vanco Iv Per Pharmacy) VANCOMYCIN PER PHARMACY PER PROTOCOL XX ; Start 04/04/18 at 17:30 Furosemide (Lasix) 40 mg DAILY PO Last administered on 04/10/18 09:30; Admin Dose 40 MG; Start 04/06/18 at 09:00 Vancomycin HCl 750 mg/Sodium Chloride 150 ml @ 75 mls/hr Q24H IVPB Last administered on 04/10/18 23:26; Admin Dose 75 MLS/HR; Start 04/05/18 at 23:00 Mupirocin (Bactroban) 1 applic BID TOP Last administered on 04/10/18 21:09; Admin Dose 1 APPLIC; Start 04/06/18 at 21:00 Cefepime HCl 50 ml @ 100 mls/hr Q12 IVPB Last administered on 04/10/18 21:10; Admin Dose 100 MLS/HR; Start 04/09/18 at 15:30 SUSAN FAULKNER MD Apr 11, 2018 08:22
[2018-04-11] MEDS: CEFEPIME 1GM/50 ML (PMX) 50 ML IVPB SCH ×2 (08:46→21:15)
[2018-04-11] MEDS: TIOTROPIUM 18 MCG CAPSULE INHA DEV INH SCH (08:47)
[2018-04-11] MEDS: FERROUS GLUCONATE (EC) 325 MG TAB PO SCH ×2 (08:47→21:15)
[2018-04-11] MEDS: SACUBITRIL/VALSARTAN (24mg-26mg) TABLET PO SCH ×2 (08:47→21:15)
[2018-04-11] MEDS: FUROSEMIDE 40 MG TAB PO SCH (08:47)
[2018-04-11] MEDS: ZINC SULFATE 220 MG CAP PO SCH (08:47)
[2018-04-11] MEDS: METOPROLOL (XL) 50 MG TAB PO SCH ×2 (08:47→21:17)
[2018-04-11] MEDS: CHOLECALCIFEROL 2,000 UNIT CAP PO SCH ×2 (08:47→21:15)
[2018-04-11] MEDS: GABAPENTIN 100 MG CAP PO SCH ×3 (08:47→21:14)
[2018-04-11] MEDS: ASCORBIC ACID 500 MG TAB PO SCH ×2 (08:47→21:16)
[2018-04-11] MEDS: SPIRONOLACTONE 25 MG TAB PO SCH (08:47)
[2018-04-11] MEDS: NYSTATIN 30 GM POWDER BTL TOP SCH ×2 (08:48→21:18)
[2018-04-11] MEDS: MULTIVITAMINS THERAPEUTIC TAB PO SCH (08:48)
[2018-04-11] MEDS: SENNA/DOCUSATE NA (8.6MG/50MG) TAB PO SCH (08:48)
[2018-04-11] MEDS: MUPIROCIN 2% 22 GM OINT TOP SCH ×2 (08:48→21:18)
[2018-04-11] MEDS: COLLAGENASE 5 GM (UD JAR) TOP SCH (08:49)
[2018-04-11] MEDS: ENOXAPARIN 40 MG/0.4 ML SYG SC SCH (08:59)
--- NOTE | 2018-04-11 11:46 | CONS ---
Date/Time of Note Date/Time of Note DATE: 04/11/18 TIME: 11:45 Assessment/Plan Assessment/Plan Assessment/Plan 1. Congestive heart failure exacerbation, systolic, acute on chronic- con't diuresis, better now - better now, con;t to keep euvolemic. Better fluid status now. Will keep euvolemic. 2. Cardiomyopathy with severely depressed left ventricular ejection fraction with last being approximately 20%- recent drug use, ICD eval if drug free 6 months - no VT/VF noted. Few PVCs noted - rate controlled. 3. Hypertension- well maintained now. Treated. 4. Dyslipidemia. 5. History of substance abuse- d/c advised. 6. Chronic obstructive pulmonary disease - improved SOB. 7. Bilateral lower extremity amputation and presenting with right stump pain. 8. Questionable history of intracardiac thrombus not seen by most recent echocardiogram dated 01/06/2018, but with severely depressed ejection fraction at that time of 20%- con't diuresis as tolerated - better now. 9. Tobacco intake. 10. SVT-regular recurrent to 160-180. Broke with PO BB. NO recurrence now. Result Diagram: 04/11/18 0525 04/11/18 0525 Results 24hrs Laboratory Tests Test 04/11/18 05:25 White Blood Count 18.5 H Red Blood Count 4.75 Hemoglobin 11.1 L Hematocrit 34.7 L Mean Corpuscular Volume 73.1 L Mean Corpuscular Hemoglobin 23.4 L Mean Corpuscular Hemoglobin Concent 32.0 Red Cell Distribution Width 21.0 H Platelet Count 443 H Mean Platelet Volume 10.8 H Immature Granulocytes % 0.700 H Neutrophils % 84.6 H Lymphocytes % 6.3 L Monocytes % 7.9 Eosinophils % 0.2 Basophils % 0.3 Nucleated Red Blood Cells % 0.0 Immature Granulocytes # 0.130 H Neutrophils # 15.7 H Lymphocytes # 1.2 Monocytes # 1.5 H Eosinophils # 0.0 Basophils # 0.1 Nucleated Red Blood Cells # 0.0 Sodium Level 135 Potassium Level 4.9 Chloride Level 97 Carbon Dioxide Level 25 Anion Gap 13 Blood Urea Nitrogen 20 Creatinine 0.76 Glucose Level 118 Calcium Level 9.2 Phosphorus Level 4.0 Magnesium Level 1.9 Albumin 3.1 L Consultation Date/Type/Reason Admit Date/Time Mar 29, 2018 at 07:48 Initial Consult Date Requesting Provider: SUSAN FAULKNER MD 24 HR Interval Summary Free Text/Dictation NO acute events - pt better overall - stale fluid status - some PVCs noted. ROS: No fever, no chills, no nausea, no vomiting, no diarrhea/constipation No recent weight changes No chest pain, no PND, no orthopnea - improved SOB. No dizziness, blurred vision No thirst, no heat or cold intolerance Exam/Review of Systems Vital Signs Vitals Vital Signs Date Temp Pulse Resp B/P (MAP) Pulse Ox O2 O2 Flow FiO2 Time Delivery Rate 04/11/18 102 08:25 04/11/18 17 96 21 08:17 04/11/18 98.5 102/57 Room Air 07:57 (72) 04/10/18 2.0 14:15 Intake and Output 04/10/18 04/10/18 04/11/18 1515:00 23:00 07:00 IntakeIntake Total 50 ml 750 ml OutputOutput Total 150 ml 1375 ml BalanceBalance -100 ml -625 ml Exam General: WN/WD/NAD, AOx 3 HEENT: Unicetric/atraumatic/EOMI (follow commands) NECK: JVD elevated, no thyromegaly Lymph: no lymphadenopathy HEART: regular with no S3, II/ systolic murmur at apex, PMI L LUNGS: Coarse sounds ABD: soft, NT, ND, +BS : Intact Neuro: non focal SKIN: chronic changes EXT: amputated Medications Medications Current Medications Atorvastatin Calcium (Lipitor) 80 mg QHS PO Last administered on 04/10/18at 20:48; Admin Dose 80 MG; Start 03/28/18 at 21:00 Budesonide (Pulmicort (Neb)) 0.5 mg BID RESP THERAPY HHN Last administered on 04/11/18at 08:15; Admin Dose 0.5 MG; Start 03/28/18 at 20:00 Ferrous Gluconate (Fergon) 325 mg BID PO Last administered on 04/11/18at 08:47; Admin Dose 325 MG; Start 03/28/18 at 21:00 Albuterol/ Ipratropium (Duoneb) 3 ml Q6HWA RESP THERAPY HHN Last administered on 04/11/18at 08:15; Admin Dose 3 ML; Start 03/28/18 at 20:00 Montelukast Sodium (Singulair) 10 mg QHS PO Last administered on 04/10/18at 20:49; Admin Dose 10 MG; Start 03/28/18 at 21:00 Pantoprazole (Protonix Tab) 40 mg DAILY@06 PO Last administered on 04/11/18 05:21; Admin Dose 40 MG; Start 03/29/18 at 06:00 Spironolactone (Aldactone) 25 mg DAILY PO Last administered on 04/11/18at 08:47; Admin Dose 25 MG; Start 03/29/18 at 09:00 Tamsulosin HCl (Flomax) 0.4 mg HS PO Last administered on 04/10/18 20:48; Admin Dose 0.4 MG; Start 03/28/18 at 21:00 Tiotropium [place] (Spiriva) 1 inh DAILY INH Last administered on 04/11/18 08:47; Admin Dose 1 INH; Start 03/29/18 at 09:00 Albuterol (Proventil 0.083% (Neb)) 2.5 mg Q2H RESP THERAPY PRN HHN SHORTNESS OF BREATH Last administered on 04/06/18at 19:39; Admin Dose 2.5 MG; Start 03/28/18 at 16:30 IV Flush (NS 3 ml) 3 ml PER PROTOCOL IV ; Start 03/28/18 at 16:30 Ondansetron HCl (Zofran Inj) 4 mg Q6H PRN IV NAUSEA AND/OR VOMITING; Start 03/28/18 at 16:30 Nitroglycerin (Nitroglycerin (Sl Tab) 0.4 Mg) 1 tab Q5M PRN SL CHEST PAIN; Start 03/28/18 at 16:30 Acetaminophen (Tylenol Tab) 650 mg Q6H PRN PO PAIN LEVEL 1-3 OR FEVER; Start 03/28/18 at 16:30 Docusate Sodium (Colace) 100 mg Q12H PRN PO CONSTIPATION Last administered on 04/06/18at 22:50; Admin Dose 100 MG; Start 03/28/18 at 16:30 Magnesium Hydroxide (Milk Of Mag) 30 ml DAILY PRN PO CONSTIPATION Last administered on 04/06/18at 22:50; Admin Dose 30 ML; Start 03/28/18 at 16:30 Enoxaparin Sodium (Lovenox) 40 mg DAILY SC Last administered on 04/11/18 08:59; Admin Dose 40 MG; Start 03/29/18 at 09:00 Sacubitril/ Valsartan (Entresto 24 Mg-26 Mg) 1 tab BID PO Last administered on 04/11/18 08:47; Admin Dose 1 TAB; Start 03/28/18 at 21:00 Nystatin (Nystatin Powder) 1 applic BID TOP Last administered on 04/11/18 08:48; Admin Dose 1 APPLIC; Start 03/28/18 at 21:00 Cholecalciferol (Vitamin D) 2,000 unit BID PO Last administered on 04/11/18 08:47; Admin Dose 2,000 UNIT; Start 03/28/18 at 21:00 Miscellaneous Information (Pending Santyl Order For Wound Care) This patient rivera... PRN PRN XX soiled; Start 03/28/18 at 19:00 Senna/Docusate Sodium (Senokot-S) 2 tab DAILY PO Last administered on 04/11/18 08:48; Admin Dose 2 TAB; Start 03/30/18 at 09:00 Ascorbic Acid (Vitamin C) 500 mg BID PO Last administered on 04/11/18 08:47; Admin Dose 500 MG; Start 03/29/18 at 21:00; Stop 04/12/18 at 20:59 Zinc Sulfate (Zinc Sulfate) 220 mg DAILY PO Last administered on 04/11/18 08:47; Admin Dose 220 MG; Start 03/30/18 at 09:00; Stop 04/13/18 at 08:59 Multivitamins Therapeutic (Theragran) 1 tab DAILY PO Last administered on 04/11/18 08:48; Admin Dose 1 TAB; Start 03/30/18 at 09:00 Gabapentin (Neurontin) 200 mg TID PO Last administered on 04/11/18 08:47; Admin Dose 200 MG; Start 03/30/18 at 13:00 Metoprolol Succinate (Toprol Xl) 50 mg BID PO Last administered on 04/10/18 21:08; Admin Dose 50 MG; Start 03/31/18 at 21:00 Oxycodone HCl (Oxycontin) 20 mg BID PRN PO PAIN LEVEL 6-10 Last administered on 04/11/18 02:59; Admin Dose 20 MG; Start 03/31/18 at 15:00 Digoxin (Digoxin) 0.125 mg DAILY@13 PO Last administered on 04/10/18 12:06; A dmin Dose 0.125 MG; Start 04/02/18 at 13:00 Oxycodone/ Acetaminophen (Percocet (5/ 325)) 1 tab Q4H PRN PO MODERATE PAIN LEVEL 4-6 Last administered on 04/11/18 05:21; Admin Dose 1 TAB; Start 03/17 11/01 at 14:00 Bisacodyl (Dulcolax) 5 mg DAILY PRN PO CONSTIPATION Last administered on 04/05/18 20:24; Admin Dose 5 MG; Start 04/02/18 at 18:30 Collagenase (Santyl) 1 applic DAILY TOP Last administered on 04/11/18 08:49; Admin Dose 1 APPLIC; Start 04/03/18 at 11:00 Vancomycin HCl (Vanco Iv Per Pharmacy) VANCOMYCIN PER PHARMACY PER PROTOCOL XX ; Start 04/04/18 at 17:30 Furosemide (Lasix) 40 mg DAILY PO Last administered on 04/11/18 08:47; Admin Dose 40 MG; Start 04/06/18 at 09:00 Vancomycin HCl 750 mg/Sodium Chloride 150 ml @ 75 mls/hr Q24H IVPB Last administered on 04/10/18 23:26; Admin Dose 75 MLS/HR; Start 04/05/18 at 23:00 Mupirocin (Bactroban) 1 applic BID TOP Last administered on 04/11/18 08:48; Admin Dose 1 APPLIC; Start 04/06/18 at 21:00 Cefepime HCl 50 ml @ 100 mls/hr Q12 IVPB Last administered on 04/11/18 08:46; Admin Dose 100 MLS/HR; Start 04/09/18 at 15:30 PASTORA CUEVAS MD Apr 11, 2018 11:46
[2018-04-11] MEDS: DIGOXIN 0.125 MG TAB PO SCH (12:05)
--- NOTE | 2018-04-11 13:14 | CONS ---
Date/Time of Note Date/Time of Note DATE: 04/11/18 TIME: 13:13 Assessment/Plan Assessment/Plan Hospital Course Alert, looks comfortable, no fevers Antimicrobials: Cefepime, Vancomycin, topical Bactroban Microbiology: All cultures negative, MRSA swab positive Allergy: Tetracycline Physical examination: Well-nourished well-developed elderly -[place] man who is in no distress. Head atraumatic normocephalic neck is supple chest rise symmetrical breath sounds diminished bases. Heart: S1-S2. Abdomen soft bowel sounds present. Extremities without cyanosis patient has bilateral above-knee amputation, right stump painful to touch with some fluctuance and swelling. Skin: Patient has multiple pressure sores Assessment: 1. Persistent leukocytosis secondary to right lower extremity stump abscess 2. Status post recurrent CHF 3. COPD 4. Substance abuse 5. Multiple wounds and pressure sores 6. History of methicillin-resistant Staphylococcus aureus infected graft, status post debridement back in 06/2017, per patient, the rest of the graft was removed at [facility], he completed IV vancomycin back in January 7. History of CABG and FL 8. Diabetes 9. MRSA nares colonization Plan: Stable, consider IR guided abscess drainage vs surgically, continue abx DW pt Result Diagram: 04/11/18 0525 04/11/18 0525 Results 24hrs Laboratory Tests Test 04/11/18 05:25 White Blood Count 18.5 H Red Blood Count 4.75 Hemoglobin 11.1 L Hematocrit 34.7 L Mean Corpuscular Volume 73.1 L Mean Corpuscular Hemoglobin 23.4 L Mean Corpuscular Hemoglobin Concent 32.0 Red Cell Distribution Width 21.0 H Platelet Count 443 H Mean Platelet Volume 10.8 H Immature Granulocytes % 0.700 H Neutrophils % 84.6 H Lymphocytes % 6.3 L Monocytes % 7.9 Eosinophils % 0.2 Basophils % 0.3 Nucleated Red Blood Cells % 0.0 Immature Granulocytes # 0.130 H Neutrophils # 15.7 H Lymphocytes # 1.2 Monocytes # 1.5 H Eosinophils # 0.0 Basophils # 0.1 Nucleated Red Blood Cells # 0.0 Sodium Level 135 Potassium Level 4.9 Chloride Level 97 Carbon Dioxide Level 25 Anion Gap 13 Blood Urea Nitrogen 20 Creatinine 0.76 Glucose Level 118 Calcium Level 9.2 Phosphorus Level 4.0 Magnesium Level 1.9 Albumin 3.1 L Consultation Date/Type/Reason Admit Date/Time Mar 29, 2018 at 07:48 Initial Consult Date Type of Consult ID Requesting Provider: SUSAN FAULKNER MD Exam/Review of Systems Vital Signs Vitals Vital Signs Date Temp Pulse Resp B/P (MAP) Pulse Ox O2 O2 Flow FiO2 Time Delivery Rate 04/11/18 108 12:01 04/11/18 98.6 114/59 100 Room Air 11:53 (77) 04/11/18 17 21 08:17 04/10/18 2.0 14:15 Intake and Output 04/10/18 04/10/18 04/11/18 1515:00 23:00 07:00 IntakeIntake Total 50 ml 750 ml OutputOutput Total 150 ml 1375 ml BalanceBalance -100 ml -625 ml Medications Medications Current Medications Atorvastatin Calcium (Lipitor) 80 mg QHS PO Last administered on 04/10/18 20:48; Admin Dose 80 MG; Start 03/28/18 at 21:00 Budesonide (Pulmicort (Neb)) 0.5 mg BID RESP THERAPY HHN Last administered on 04/11/18 08:15; Admin Dose 0.5 MG; Start 03/28/18 at 20:00 Ferrous Gluconate (Fergon) 325 mg BID PO Last administered on 04/11/18 08:47; Admin Dose 325 MG; Start 03/28/18 at 21:00 Albuterol/ Ipratropium (Duoneb) 3 ml Q6HWA RESP THERAPY HHN Last administered on 04/11/18 08:15; Admin Dose 3 ML; Start 03/28/18 at 20:00 Montelukast Sodium (Singulair) 10 mg QHS PO Last administered on 04/10/18 20:49; Admin Dose 10 MG; Start 03/28/18 at 21:00 Pantoprazole (Protonix Tab) 40 mg DAILY@06 PO Last administered on 04/11/18 05:21; Admin Dose 40 MG; Start 03/29/18 at 06:00 Spironolactone (Aldactone) 25 mg DAILY PO Last administered on 04/11/18 08:47; Admin Dose 25 MG; Start 03/29/18 at 09:00 Tamsulosin HCl (Flomax) 0.4 mg HS PO Last administered on 04/10/18 20:48; Admin Dose 0.4 MG; Start 03/28/18 at 21:00 Tiotropium [place] (Spiriva) 1 inh DAILY INH Last administered on 04/11/18at 08:47; Admin Dose 1 INH; Start 03/29/18 at 09:00 Albuterol (Proventil 0.083% (Neb)) 2.5 mg Q2H RESP THERAPY PRN HHN SHORTNESS OF BREATH Last administered on 04/06/18at 19:39; Admin Dose 2.5 MG; Start 03/28/18 at 16:30 IV Flush (NS 3 ml) 3 ml PER PROTOCOL IV ; Start 03/28/18 at 16:30 Ondansetron HCl (Zofran Inj) 4 mg Q6H PRN IV NAUSEA AND/OR VOMITING; Start 03/28/18 at 16:30 Nitroglycerin (Nitroglycerin (Sl Tab) 0.4 Mg) 1 tab Q5M PRN SL CHEST PAIN; Start 03/28/18 at 16:30 Acetaminophen (Tylenol Tab) 650 mg Q6H PRN PO PAIN LEVEL 1-3 OR FEVER; Start 03/28/18 at 16:30 Docusate Sodium (Colace) 100 mg Q12H PRN PO CONSTIPATION Last administered on 04/06/18at 22:50; Admin Dose 100 MG; Start 03/28/18 at 16:30 Magnesium Hydroxide (Milk Of Mag) 30 ml DAILY PRN PO CONSTIPATION Last administered on 04/06/18at 22:50; Admin Dose 30 ML; Start 03/28/18 at 16:30 Enoxaparin Sodium (Lovenox) 40 mg DAILY SC Last administered on 04/11/18at 0 8:59; Admin Dose 40 MG; Start 03/29/18 at 09:00 Sacubitril/ Valsartan (Entresto 24 Mg-26 Mg) 1 tab BID PO Last administered on 04/11/18 08:47; Admin Dose 1 TAB; Start 03/28/18 at 21:00 Nystatin (Nystatin Powder) 1 applic BID TOP Last administered on 04/11/18at 08:48; Admin Dose 1 APPLIC; Start 03/28/18 at 21:00 Cholecalciferol (Vitamin D) 2,000 unit BID PO Last administered on 04/11/18at 0 8:47; Admin Dose 2,000 UNIT; Start 03/28/18 at 21:00 Miscellaneous Information (Pending Santyl Order For Wound Care) This patient rivera... PRN PRN XX soiled; Start 03/28/18 at 19:00 Senna/Docusate Sodium (Senokot-S) 2 tab DAILY PO Last administered on 04/11/18 08:48; Admin Dose 2 TAB; Start 03/30/18 at 09:00 Ascorbic Acid (Vitamin C) 500 mg BID PO Last administered on 04/11/18 08:47; Admin Dose 500 MG; Start 03/29/18 at 21:00; Stop 04/12/18 at 20:59 Zinc Sulfate (Zinc Sulfate) 220 mg DAILY PO Last administered on 04/11/18 08:47; Admin Dose 220 MG; Start 03/30/18 at 09:00; Stop 04/13/18 at 08:59 Multivitamins Therapeutic (Theragran) 1 tab DAILY PO Last administered on 04/11/18 08:48; Admin Dose 1 TAB; Start 03/30/18 at 09:00 Gabapentin (Neurontin) 200 mg TID PO Last administered on 04/11/18 12:05; Admin Dose 200 MG; Start 03/30/18 at 13:00 Metoprolol Succinate (Toprol Xl) 50 mg BID PO Last administered on 04/10/18 21:08; Admin Dose 50 MG; Start 03/31/18 at 21:00 Oxycodone HCl (Oxycontin) 20 mg BID PRN PO PAIN LEVEL 6-10 Last administered on 04/11/18at 02:59; Admin Dose 20 MG; Start 03/31/18 at 15:00 Digoxin (Digoxin) 0.125 mg DAILY@13 PO Last administered on 04/11/18 12:05; Admin Dose 0.125 MG; Start 04/02/18 at 13:00 Oxycodone/ Acetaminophen (Percocet (5/ 325)) 1 tab Q4H PRN PO MODERATE PAIN LEVEL 4-6 Last administered on 04/11/18 12:05; Admin Dose 1 TAB; Start 04/02/18 at 14:00 Bisacodyl (Dulcolax) 5 mg DAILY PRN PO CONSTIPATION Last administered on 04/05/18at 20:24; Admin Dose 5 MG; Start 04/02/18 at 18:30 Collagenase (Santyl) 1 applic DAILY TOP Last administered on 04/11/18at 08:49; Admin Dose 1 APPLIC; Start 04/03/18 at 11:00 Vancomycin HCl (Vanco Iv Per Pharmacy) VANCOMYCIN PER PHARMACY PER PROTOCOL XX ; Start 04/04/18 at 17:30 Furosemide (Lasix) 40 mg DAILY PO Last administered on 04/11/18at 08:47; Admin Dose 40 MG; Start 04/06/18 at 09:00 Vancomycin HCl 750 mg/Sodium Chloride 150 ml @ 75 mls/hr Q24H IVPB Last admin istered on 04/10/18at 23:26; Admin Dose 75 MLS/HR; Start 04/05/18 at 23:00 Mupirocin (Bactroban) 1 applic BID TOP Last administered on 04/11/18at 08:48; Admin Dose 1 APPLIC; Start 04/06/18 at 21:00 Cefepime HCl 50 ml @ 100 mls/hr Q12 IVPB Last administered on 04/11/18at 08:46; Admin Dose 100 MLS/HR; Start 04/09/18 at 15:30 NAYELI MADERA NP Apr 11, 2018 13:14
[2018-04-11] MEDS: MONTELUKAST 10 MG TAB PO SCH (21:15)
[2018-04-11] MEDS: ATORVASTATIN 80 MG TAB PO SCH (21:16)
[2018-04-11] MEDS: TAMSULOSIN (SR) 0.4 MG CAP PO SCH (21:16)
[2018-04-11] MEDS ORDERED: morphine 4 MG/ML VIAL IV ONE (23:24)
[2018-04-11] MEDS: VANCOMYCIN 750 MG in SOD CHLORIDE 0.9% 150 ML IVPB SCH (23:50)
[2018-04-12] VITALS (11 sets, daily range): BP systolic 100–133; BP diastolic 56–67; PULSE 59–112; RESP 18–22
[2018-04-12] MEDS ORDERED: VITAMIN A & D 5 GM OINT PACKET TOP ONE (02:07)
[2018-04-12] MEDS: OXYCODONE/ACETAMINOPHEN (5/325) TAB PO PRN ×4 (02:10→19:26)
[2018-04-12] MEDS: PANTOPRAZOLE (EC) 40 MG TAB PO SCH (07:02)
[2018-04-12] MEDS: ALBUTEROL/IPRATROPIUM (NEB) 3 ML AMP HHN SCH ×3 (08:00→20:40)
[2018-04-12] MEDS: FERROUS GLUCONATE (EC) 325 MG TAB PO SCH ×2 (08:17→21:54)
[2018-04-12] MEDS: GABAPENTIN 100 MG CAP PO SCH ×3 (08:17→21:52)
[2018-04-12] MEDS: SPIRONOLACTONE 25 MG TAB PO SCH (08:18)
[2018-04-12] MEDS: MULTIVITAMINS THERAPEUTIC TAB PO SCH (08:18)
[2018-04-12] MEDS: ZINC SULFATE 220 MG CAP PO SCH (08:18)
[2018-04-12] MEDS: SACUBITRIL/VALSARTAN (24mg-26mg) TABLET PO SCH ×2 (08:18→21:54)
[2018-04-12] MEDS: TIOTROPIUM 18 MCG CAPSULE INHA DEV INH SCH (08:18)
[2018-04-12] MEDS: METOPROLOL (XL) 50 MG TAB PO SCH (08:18)
[2018-04-12] MEDS: FUROSEMIDE 40 MG TAB PO SCH (08:18)
[2018-04-12] MEDS: CHOLECALCIFEROL 2,000 UNIT CAP PO SCH ×2 (08:18→21:54)
[2018-04-12] MEDS: SENNA/DOCUSATE NA (8.6MG/50MG) TAB PO SCH (08:18)
[2018-04-12] MEDS: COLLAGENASE 5 GM (UD JAR) TOP SCH (08:19)
[2018-04-12] MEDS: CEFEPIME 1GM/50 ML (PMX) 50 ML IVPB SCH ×2 (08:19→21:54)
[2018-04-12] MEDS: MUPIROCIN 2% 22 GM OINT TOP SCH ×2 (08:20→21:54)
[2018-04-12] MEDS: NYSTATIN 30 GM POWDER BTL TOP SCH ×2 (08:20→21:54)
[2018-04-12] MEDS: ENOXAPARIN 40 MG/0.4 ML SYG SC SCH (08:29)
--- NOTE | 2018-04-12 08:29 | PN ---
Date/Time of Note Date/Time of Note DATE: 04/12/18 TIME: 08:29 Assessment/Plan VTE Prophylaxis Risk score (from Ns)>0 risk: 7 SCD applied (from Ns): No SCD contraindicated: bilateral amputee Pharmacological prophylaxis: apixaban Lines/Catheters IV Catheter Type (from [facility]): Saline Lock Urinary Cath still in place: No Assessment/Plan Assessment/Plan 1. Acute infection in right thigh s/p b/l amputations - Discussed with IR and will do a diagnostic drainage of fluid collection to determine if abscess vs seroma. Recommending surgical intervention if in fact is an abscess. - ID on board and appreciate recommendations - Pain management on board and appreciate consultation. - LE US negative for DVT. 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 Discussed with vascular, Dr. Rodríguez, who said it was chronic and will need to follow up with outpatient clinic at [facility] since RLE amputation was performed there. - PT/OT on board 2. leukocytosis - ID on board and appreciate recommendations 3. Acute on chronic systolic heart failure- resolved - Cardiology consultation appreciated. - Echo results noted from prior admission with EF 20% 4. Wounds on elbows and sacrum - wound consultation appreciated 5. CAD - continue all home medications - stable 6. b/l AKA secondary to PVD 7. Episode of sustained vtach- resolved - Cardiology on board and continues to adjust medications as needed 8. Disposition - Plans for IR drainage of collection in right stump. Will send for culture to determine if infectious vs seroma Result Diagram: 04/12/18 0450 04/12/18 0450 Results 24hrs Laboratory Tests Test 04/12/18 04:50 White Blood Count 17.8 H Red Blood Count 4.72 Hemoglobin 11.1 L Hematocrit 34.8 L Mean Corpuscular Volume 73.7 L Mean Corpuscular Hemoglobin 23.5 L Mean Corpuscular Hemoglobin Concent 31.9 L Red Cell Distribution Width 20.6 H Platelet Count 496 H Mean Platelet Volume 10.5 H Immature Granulocytes % 1.000 H Neutrophils % 83.9 H Lymphocytes % 6.6 L Monocytes % 8.0 Eosinophils % 0.2 Basophils % 0.3 Nucleated Red Blood Cells % 0.0 Immature Granulocytes # 0.170 H Neutrophils # 15.0 H Lymphocytes # 1.2 Monocytes # 1.4 H Eosinophils # 0.0 Basophils # 0.1 Nucleated Red Blood Cells # 0.0 Sodium Level 134 L Potassium Level 4.9 Chloride Level 98 Carbon Dioxide Level 26 Anion Gap 10 Blood Urea Nitrogen 15 Creatinine 0.67 Glucose Level 120 Calcium Level 9.3 Phosphorus Level 3.9 Albumin 3.1 L Subjective 24 Hr Interval Summary Free Text/Dictation Patient still with same pain in right leg and buttock area. Denies any new complaints. No acute overnight events. Exam/Review of Systems Vital Signs Vitals Vital Signs Date Temp Pulse Resp B/P (MAP) Pulse Ox O2 O2 Flow FiO2 Time Delivery Rate 04/12/18 111 08:03 04/12/18 98.5 22 126/60 96 Room Air 07:21 (82) 04/11/18 21 21:43 04/10/18 2.0 14:15 Intake and Output 04/11/18 04/11/18 04/12/18 1515:00 23:00 07:00 IntakeIntake Total 1460 ml 600 ml OutputOutput Total 2400 ml 700 ml BalanceBalance -940 ml -100 ml Exam General: Patient is laying in bed and answers questions appropriately Neck: Supple Respiratory: Clear to auscultation bilaterally. no wheezing or rhonchi Cardiovascular: regular rate and rhythm, no obvious murmurs Gastrointestinal: soft, non-tender to palpation, nondistended. bowel sounds heard. Neurological: Moves all extremities spontaneously Musculoskeletal: Bilateral AKA Skin: small fluctuant area with erythema anteromedial aspect of right thigh/stump. no discharge appreciated. Medications Medications Current Medications Atorvastatin Calcium (Lipitor) 80 mg QHS PO Last administered on 04/11/18 21:16; Admin Dose 80 MG; Start 03/28/18 at 21:00 Budesonide (Pulmicort (Neb)) 0.5 mg BID RESP THERAPY HHN Last administered on 04/11/18 21:42; Admin Dose 0.5 MG; Start 03/28/18 at 20:00 Ferrous Gluconate (Fergon) 325 mg BID PO Last administered on 04/11/18 21:15; Admin Dose 325 MG; Start 03/28/18 at 21:00 Albuterol/ Ipratropium (Duoneb) 3 ml Q6HWA RESP THERAPY HHN Last administered on 04/11/18 21:42; Admin Dose 3 ML; Start 03/28/18 at 20:00 Montelukast Sodium (Singulair) 10 mg QHS PO Last administered on 04/11/18at 21:15; Admin Dose 10 MG; Start 03/28/18 at 21:00 Pantoprazole (Protonix Tab) 40 mg DAILY@06 PO Last administered on 04/12/18 07:02; Admin Dose 40 MG; Start 03/29/18 at 06:00 Spironolactone (Aldactone) 25 mg DAILY PO Last administered on 04/11/18at 08:47; Admin Dose 25 MG; Start 03/29/18 at 09:00 Tamsulosin HCl (Flomax) 0.4 mg HS PO Last administered on 04/11/18 21:16; Admin Dose 0.4 MG; Start 03/28/18 at 21:00 Tiotropium [place] (Spiriva) 1 inh DAILY INH Last administered on 04/11/18 08:47; Admin Dose 1 INH; Start 03/29/18 at 09:00 Albuterol (Proventil 0.083% (Neb)) 2.5 mg Q2H RESP THERAPY PRN HHN SHORTNESS OF BREATH Last administered on 04/06/18at 19:39; Admin Dose 2.5 MG; Start 03/28/18 at 16:30 IV Flush (NS 3 ml) 3 ml PER PROTOCOL IV ; Start 03/28/18 at 16:30 Ondansetron HCl (Zofran Inj) 4 mg Q6H PRN IV NAUSEA AND/OR VOMITING; Start 03/28/18 at 16:30 Nitroglycerin (Nitroglycerin (Sl Tab) 0.4 Mg) 1 tab Q5M PRN SL CHEST PAIN; Start 03/28/18 at 16:30 Acetaminophen (Tylenol Tab) 650 mg Q6H PRN PO PAIN LEVEL 1-3 OR FEVER; Start 03/28/18 at 16:30 Docusate Sodium (Colace) 100 mg Q12H PRN PO CONSTIPATION Last administered on 04/06/18at 22:50; Admin Dose 100 MG; Start 03/28/18 at 16:30 Magnesium Hydroxide (Milk Of Mag) 30 ml DAILY PRN PO CONSTIPATION Last administered on 04/06/18at 22:50; Admin Dose 30 ML; Start 03/28/18 at 16:30 Enoxaparin Sodium (Lovenox) 40 mg DAILY SC Last administered on 04/11/18 08:59; Admin Dose 40 MG; Start 03/29/18 at 09:00 Sacubitril/ Valsartan (Entresto 24 Mg-26 Mg) 1 tab BID PO Last administered on 04/11/18 21:15; Admin Dose 1 TAB; Start 03/28/18 at 21:00 Nystatin (Nystatin Powder) 1 applic BID TOP Last administered on 04/11/18 21:18; Admin Dose 1 APPLIC; Start 03/28/18 at 21:00 Cholecalciferol (Vitamin D) 2,000 unit BID PO Last administered on 04/11/18 21:15; Admin Dose 2,000 UNIT; Start 03/28/18 at 21:00 Miscellaneous Information (Pending [facility] Order For Wound Care) This patient rivera... PRN PRN XX soiled; Start 03/28/18 at 19:00 Senna/Docusate Sodium (Senokot-S) 2 tab DAILY PO Last administered on 04/11/18 08:48; Admin Dose 2 TAB; Start 03/30/18 at 09:00 Ascorbic Acid (Vitamin C) 500 mg BID PO Last administered on 04/11/18 21:16; Admin Dose 500 MG; Start 03/29/18 at 21:00; Stop 04/12/18 at 20:59 Zinc Sulfate (Zinc Sulfate) 220 mg DAILY PO Last administered on 04/11/18 08:47; Admin Dose 220 MG; Start 03/30/18 at 09:00; Stop 04/13/18 at 08:59 Multivitamins Therapeutic (Theragran) 1 tab DAILY PO Last administered on 1 06/12/17 08:48; Admin Dose 1 TAB; Start 03/30/18 at 09:00 Gabapentin (Neurontin) 200 mg TID PO Last administered on 04/11/18 21:14; Admin Dose 200 MG; Start 03/30/18 at 13:00 Metoprolol Succinate (Toprol Xl) 50 mg BID PO Last administered on 04/11/18 21:17; Admin Dose 50 MG; Start 03/31/18 at 21:00 Oxycodone HCl (Oxycontin) 20 mg BID PRN PO PAIN LEVEL 6-10 Last administered on 04/11/18 19:20; Admin Dose 20 MG; Start 03/31/18 at 15:00 Digoxin (Digoxin) 0.125 mg DAILY@13 PO Last administered on 04/11/18 12:05; Admin Dose 0.125 MG; Start 04/02/18 at 13:00 Oxycodone/ Acetaminophen (Percocet (5/ 325)) 1 tab Q4H PRN PO MODERATE PAIN LEVEL 4-6 Last administered on 04/12/18 02:10; Admin Dose 1 TAB; Start 04/02/18 at 14:00 Bisacodyl (Dulcolax) 5 mg DAILY PRN PO CONSTIPATION Last administered on 04/05/18 20:24; Admin Dose 5 MG; Start 04/02/18 at 18:30 Collagenase (Santyl) 1 applic DAILY TOP Last administered on 04/11/18 08:49; Admin Dose 1 APPLIC; Start 04/03/18 at 11:00 Vancomycin HCl (Vanco Iv Per Pharmacy) VANCOMYCIN PER PHARMACY PER PROTOCOL XX ; Start 04/04/18 at 17:30 Furosemide (Lasix) 40 mg DAILY PO Last administered on 04/11/18 08:47; Admin Dose 40 MG; Start 04/06/18 at 09:00 Vancomycin HCl 750 mg/Sodium Chloride 150 ml @ 75 mls/hr Q24H IVPB Last administered on 04/11/18 23:50; Admin Dose 75 MLS/HR; Start 04/05/18 at 23:00 Mupirocin (Bactroban) 1 applic BID TOP Last administered on 04/11/18 21:18; Admin Dose 1 APPLIC; Start 04/06/18 at 21:00 Cefepime HCl 50 ml @ 100 mls/hr Q12 IVPB Last administered on 04/11/18 21:15; Admin Dose 100 MLS/HR; Start 04/09/18 at 15:30 SUSAN FAULKNER MD Apr 12, 2018 08:29
[2018-04-12] MEDS: ASCORBIC ACID 500 MG TAB PO SCH (08:33)
[2018-04-12] MEDS: oxyCODONE (CR) 20 MG TAB [oxyCONTIN] PO PRN ×2 (08:33→21:55)
[2018-04-12] MEDS: BUDESONIDE (NEB) 0.5MG/2ML AMP HHN SCH ×2 (09:00→20:40)
--- NOTE | 2018-04-12 11:49 | CONS ---
Date/Time of Note Date/Time of Note DATE: 04/12/18 TIME: 11:45 Assessment/Plan Assessment/Plan Hospital Course IMPRESSION: 1. Congestive heart failure exacerbation, systolic, acute on chronic. 2. Cardiomyopathy with severely depressed left ventricular ejection fraction with last being approximately 20%. 3. Hypertension. 4. Dyslipidemia. 5. History of substance abuse. 6. Chronic obstructive pulmonary disease. 7. Bilateral lower extremity amputation and presenting with right stump pain. 8. Questionable history of intracardiac thrombus not seen by most recent echocardiogram dated 01/06/2018, but with severely depressed ejection fraction at that time of 20%. 9. Tobacco intake. 10. SVT-regular recurrent to 160-180. Broke with PO BB. Also questionable WCT right before. Had recurrent SVT o/n 04/01. has ongoiong tachycardia Recc: -Tele -serial ecg's -Continue entresto -Continue BB with slight increase and give additional IVP dose of digoxin to improve HR control -Continue aldactone -Continue lasix daily -Continue bronchodilators/abx's and f/u cx data -Continue po digoxin -pain control Result Diagram: 04/12/18 0450 04/12/18 0450 Results 24hrs Laboratory Tests Test 04/12/18 04:50 White Blood Count 17.8 H Red Blood Count 4.72 Hemoglobin 11.1 L Hematocrit 34.8 L Mean Corpuscular Volume 73.7 L Mean Corpuscular Hemoglobin 23.5 L Mean Corpuscular Hemoglobin Concent 31.9 L Red Cell Distribution Width 20.6 H Platelet Count 496 H Mean Platelet Volume 10.5 H Immature Granulocytes % 1.000 H Neutrophils % 83.9 H Lymphocytes % 6.6 L Monocytes % 8.0 Eosinophils % 0.2 Basophils % 0.3 Nucleated Red Blood Cells % 0.0 Immature Granulocytes # 0.170 H Neutrophils # 15.0 H Lymphocytes # 1.2 Monocytes # 1.4 H Eosinophils # 0.0 Basophils # 0.1 Nucleated Red Blood Cells # 0.0 Sodium Level 134 L Potassium Level 4.9 Chloride Level 98 Carbon Dioxide Level 26 Anion Gap 10 Blood Urea Nitrogen 15 Creatinine 0.67 Glucose Level 120 Calcium Level 9.3 Phosphorus Level 3.9 Albumin 3.1 L Consultation Date/Type/Reason Admit Date/Time Mar 29, 2018 at 07:48 Initial Consult Date 03/29/18 Type of Consult cardiology Reason for Consultation CHF Requesting Provider: SUSAN FAULKNER MD Exam/Review of Systems Vital Signs Vitals Vital Signs Date Temp Pulse Resp B/P (MAP) Pulse Ox O2 O2 Flow FiO2 Time Delivery Rate 04/12/18 97.8 108 22 133/62 96 Room Air 11:24 (85) 04/11/18 21 21:43 04/10/18 2.0 14:15 Intake and Output 04/11/18 04/11/18 04/12/18 1515:00 23:00 07:00 IntakeIntake Total 1460 ml 600 ml OutputOutput Total 2400 ml 700 ml BalanceBalance -940 ml -100 ml Exam Review of Systems: CONSTITUTIONAL: No fevers, chills. PULMONARY: No sob CARDIOVASCULAR: No chest pain/palpitations GASTROINTESTINAL: No nausea/vomiting. GENITOURINARY: No hematuria/dysuria. MUSCULOSKELETAL: No myagias/arthalgias. PSYCHIATRIC: The patient denies depression. NEUROLOGIC: No weakness Psych: no complaints Head: normocephalic ENMT: mucosa pink and moist Neck: supple, jvd Respiratory: diminished breath sounds Cardiovascular: regular rate and rhythm Gastrointestinal: soft, non-tender Musculoskeletal: muscle tone (normal) Extremities: other (BIlateral LE amputation) Neurological: other (No focal deficits) Medications Medications Current Medications Atorvastatin Calcium (Lipitor) 80 mg QHS PO Last administered on 04/11/18at 21:16; Admin Dose 80 MG; Start 03/28/18 at 21:00 Budesonide (Pulmicort (Neb)) 0.5 mg BID RESP THERAPY HHN Last administered on 04/11/18at 21:42; Admin Dose 0.5 MG; Start 03/28/18 at 20:00 Ferrous Gluconate (Fergon) 325 mg BID PO Last administered on 04/12/18at 08:17; Admin Dose 325 MG; Start 03/28/18 at 21:00 Albuterol/ Ipratropium (Duoneb) 3 ml Q6HWA RESP THERAPY HHN Last administered on 04/11/18at 21:42; Admin Dose 3 ML; Start 03/28/18 at 20:00 Montelukast Sodium (Singulair) 10 mg QHS PO Last administered on 04/11/18at 21:15; Admin Dose 10 MG; Start 03/28/18 at 21:00 Pantoprazole (Protonix Tab) 40 mg DAILY@06 PO Last administered on 04/12/18at 07:02; Admin Dose 40 MG; Start 03/29/18 at 06:00 Spironolactone (Aldactone) 25 mg DAILY PO Last administered on 04/12/18at 08:18; Admin Dose 25 MG; Start 03/29/18 at 09:00 Tamsulosin HCl (Flomax) 0.4 mg HS PO Last administered on 04/11/18at 21:16; Admin Dose 0.4 MG; Start 03/28/18 at 21:00 Tiotropium [place] (Spiriva) 1 inh DAILY INH Last administered on 04/12/18at 08:18; Admin Dose 1 INH; Start 03/29/18 at 09:00 Albuterol (Proventil 0.083% (Neb)) 2.5 mg Q2H RESP THERAPY PRN HHN SHORTNESS OF BREATH Last administered on 04/06/18at 19:39; Admin Dose 2.5 MG; Start 03/28/18 at 16:30 IV Flush (NS 3 ml) 3 ml PER PROTOCOL IV ; Start 03/28/18 at 16:30 Ondansetron HCl (Zofran Inj) 4 mg Q6H PRN IV NAUSEA AND/OR VOMITING; Start 03/28/18 at 16:30 Nitroglycerin (Nitroglycerin (Sl Tab) 0.4 Mg) 1 tab Q5M PRN SL CHEST PAIN; Start 03/28/18 at 16:30 Acetaminophen (Tylenol Tab) 650 mg Q6H PRN PO PAIN LEVEL 1-3 OR FEVER; Start 03/28/18 at 16:30 Docusate Sodium (Colace) 100 mg Q12H PRN PO CONSTIPATION Last administered on 04/06/18at 22:50; Admin Dose 100 MG; Start 03/28/18 at 16:30 Magnesium Hydroxide (Milk Of Mag) 30 ml DAILY PRN PO CONSTIPATION Last administered on 04/06/18at 22:50; Admin Dose 30 ML; Start 03/28/18 at 16:30 Enoxaparin Sodium (Lovenox) 40 mg DAILY SC Last administered on 04/12/18at 08: 29; Admin Dose 40 MG; Start 03/29/18 at 09:00 Sacubitril/ Valsartan (Entresto 24 Mg-26 Mg) 1 tab BID PO Last administered on 04/12/18 08:18; Admin Dose 1 TAB; Start 03/28/18 at 21:00 Nystatin (Nystatin Powder) 1 applic BID TOP Last administered on 04/12/18 08:20; Admin Dose 1 APPLIC; Start 03/28/18 at 21:00 Cholecalciferol (Vitamin D) 2,000 unit BID PO Last administered on 04/12/18 08:18; Admin Dose 2,000 UNIT; Start 03/28/18 at 21:00 Miscellaneous Information (Pending Santyl Order For Wound Care) This patient rivera... PRN PRN XX soiled; Start 03/28/18 at 19:00 Senna/Docusate Sodium (Senokot-S) 2 tab DAILY PO Last administered on 04/12/18 08:18; Admin Dose 2 TAB; Start 03/30/18 at 09:00 Ascorbic Acid (Vitamin C) 500 mg BID PO Last administered on 04/12/18 08:33; Admin Dose 500 MG; Start 03/29/18 at 21:00; Stop 04/12/18 at 20:59 Zinc Sulfate (Zinc Sulfate) 220 mg DAILY PO Last administered on 04/12/18 08:18; Admin Dose 220 MG; Start 03/30/18 at 09:00; Stop 04/13/18 at 08:59 Multivitamins Therapeutic (Theragran) 1 tab DAILY PO Last administered on 04/12/18 08:18; Admin Dose 1 TAB; Start 03/30/18 at 09:00 Gabapentin (Neurontin) 200 mg TID PO Last administered on 04/12/18 08:17; Admin Dose 200 MG; Start 03/30/18 at 13:00 Metoprolol Succinate (Toprol Xl) 50 mg BID PO Last administered on 04/12/18 08:18; Admin Dose 50 MG; Start 03/31/18 at 21:00 Oxycodone HCl (Oxycontin) 20 mg BID PRN PO PAIN LEVEL 6-10 Last administered on 04/12/18 08:33; Admin Dose 20 MG; Start 03/31/18 at 15:00 Digoxin (Digoxin) 0.125 mg DAILY@13 PO Last administered on 04/11/18at 12:05; Admin Dose 0.125 MG; Start 04/02/18 at 13:00 Oxycodone/ Acetaminophen (Percocet (5/ 325)) 1 tab Q4H PRN PO MODERATE PAIN LEVEL 4-6 Last administered on 04/12/18 02:10; Admin Dose 1 TAB; Start 04/02/18 at 14:00 Bisacodyl (Dulcolax) 5 mg DAILY PRN PO CONSTIPATION Last administered on 04/05/18 20:24; Admin Dose 5 MG; Start 04/02/18 at 18:30 Collagenase (Santyl) 1 applic DAILY TOP Last administered on 04/12/18 08:19; Admin Dose 1 APPLIC; Start 04/03/18 at 11:00 Vancomycin HCl (Vanco Iv Per Pharmacy) VANCOMYCIN PER PHARMACY PER PROTOCOL XX ; Start 04/04/18 at 17:30 Furosemide (Lasix) 40 mg DAILY PO Last administered on 04/12/18 08:18; Admin Dose 40 MG; Start 04/06/18 at 09:00 Vancomycin HCl 750 mg/Sodium Chloride 150 ml @ 75 mls/hr Q24H IVPB Last administered on 04/11/18 23:50; Admin Dose 75 MLS/HR; Start 04/05/18 at 23:00 Mupirocin (Bactroban) 1 applic BID TOP Last administered on 04/12/18 08:20; Admin Dose 1 APPLIC; Start 04/06/18 at 21:00 Cefepime HCl 50 ml @ 100 mls/hr Q12 IVPB Last administered on 04/12/18 08:19; Admin Dose 100 MLS/HR; Start 04/09/18 at 15:30 VIVIAN PRINCE Apr 12, 2018 11:48
[2018-04-12] MEDS ORDERED: DIGOXIN 500 MCG INJ IV ONE (12:00)
[2018-04-12] MEDS: DIGOXIN 0.125 MG TAB PO SCH (12:43)
[2018-04-12] MEDS ORDERED: LIDOCAINE 1% (MPF) 5 ML VIAL ONE (14:12)
--- NOTE | 2018-04-12 14:24 | CONS ---
Date/Time of Note Date/Time of Note DATE: 04/12/18 TIME: 14:23 Assessment/Plan Assessment/Plan Hospital Course Alert, looks comfortable, no fevers Antimicrobials: Cefepime, Vancomycin, topical Bactroban Microbiology: All cultures negative, MRSA swab positive Allergy: Tetracycline Physical examination: Well-nourished well-developed elderly -[place]izen [place] man who is in no distress. Head atraumatic normocephalic neck is supple chest rise symmetrical breath sounds diminished bases. Heart: S1-S2. Abdomen soft bowel sounds present. Extremities without cyanosis patient has bilateral above-knee amputation, right stump painful to touch with some fluctuance and swelling. Skin: Patient has multiple pressure sores Assessment: 1. Persistent leukocytosis secondary to right lower extremity stump abscess 2. Status post recurrent CHF 3. COPD 4. Substance abuse 5. Multiple wounds and pressure sores 6. History of methicillin-resistant Staphylococcus aureus infected graft, status post debridement back in 06/2017, per patient, the rest of the graft was removed at [facility], he completed IV vancomycin back in January 7. History of CABG and [place] 8. Diabetes 9. MRSA nares colonization Plan: Stable, pending IR guided abscess drainage, continue abx DW pt Result Diagram: 04/12/18 0450 04/12/18 0450 Results 24hrs Laboratory Tests Test 04/12/18 04:50 White Blood Count 17.8 H Red Blood Count 4.72 Hemoglobin 11.1 L Hematocrit 34.8 L Mean Corpuscular Volume 73.7 L Mean Corpuscular Hemoglobin 23.5 L Mean Corpuscular Hemoglobin Concent 31.9 L Red Cell Distribution Width 20.6 H Platelet Count 496 H Mean Platelet Volume 10.5 H Immature Granulocytes % 1.000 H Neutrophils % 83.9 H Lymphocytes % 6.6 L Monocytes % 8.0 Eosinophils % 0.2 Basophils % 0.3 Nucleated Red Blood Cells % 0.0 Immature Granulocytes # 0.170 H Neutrophils # 15.0 H Lymphocytes # 1.2 Monocytes # 1.4 H Eosinophils # 0.0 Basophils # 0.1 Nucleated Red Blood Cells # 0.0 Sodium Level 134 L Potassium Level 4.9 Chloride Level 98 Carbon Dioxide Level 26 Anion Gap 10 Blood Urea Nitrogen 15 Creatinine 0.67 Glucose Level 120 Calcium Level 9.3 Phosphorus Level 3.9 Albumin 3.1 L Consultation Date/Type/Reason Admit Date/Time Mar 29, 2018 at 07:48 Initial Consult Date Type of Consult ID Requesting Provider: SUSAN FAULKNER MD Exam/Review of Systems Vital Signs Vitals Vital Signs Date Temp Pulse Resp B/P (MAP) Pulse Ox O2 O2 Flow FiO2 Time Delivery Rate 04/12/18 98 22 95 21 13:02 04/12/18 97.8 133/62 Room Air 11:24 (85) 04/10/18 2.0 14:15 Intake and Output 04/11/18 04/11/18 04/12/18 1515:00 23:00 07:00 IntakeIntake Total 1460 ml 600 ml OutputOutput Total 2400 ml 700 ml BalanceBalance -940 ml -100 ml Medications Medications Current Medications Atorvastatin Calcium (Lipitor) 80 mg QHS PO Last administered on 04/11/18 21:16; Admin Dose 80 MG; Start 03/28/18 at 21:00 Budesonide (Pulmicort (Neb)) 0.5 mg BID RESP THERAPY HHN Last administered on 04/11/18at 21:42; Admin Dose 0.5 MG; Start 03/28/18 at 20:00 Ferrous Gluconate (Fergon) 325 mg BID PO Last administered on 04/12/18 08:17; Admin Dose 325 MG; Start 03/28/18 at 21:00 Albuterol/ Ipratropium (Duoneb) 3 ml Q6HWA RESP THERAPY HHN Last administered on 04/12/18 13:02; Admin Dose 3 ML; Start 03/28/18 at 20:00 Montelukast Sodium (Singulair) 10 mg QHS PO Last administered on 04/11/18 21:15; Admin Dose 10 MG; Start 03/28/18 at 21:00 Pantoprazole (Protonix Tab) 40 mg DAILY@06 PO Last administered on 04/12/18 07:02; Admin Dose 40 MG; Start 03/29/18 at 06:00 Spironolactone (Aldactone) 25 mg DAILY PO Last administered on 04/12/18 08:18; Admin Dose 25 MG; Start 03/29/18 at 09:00 Tamsulosin HCl (Flomax) 0.4 mg HS PO Last administered on 04/11/18 21:16; Admin Dose 0.4 MG; Start 03/28/18 at 21:00 Tiotropium [place] (Spiriva) 1 inh DAILY INH Last administered on 04/12/18at 08:18; Admin Dose 1 INH; Start 03/29/18 at 09:00 Albuterol (Proventil 0.083% (Neb)) 2.5 mg Q2H RESP THERAPY PRN HHN SHORTNESS OF BREATH Last administered on 04/06/18at 19:39; Admin Dose 2.5 MG; Start 03/28/18 at 16:30 IV Flush (NS 3 ml) 3 ml PER PROTOCOL IV ; Start 03/28/18 at 16:30 Ondansetron HCl (Zofran Inj) 4 mg Q6H PRN IV NAUSEA AND/OR VOMITING; Start 03/28/18 at 16:30 Nitroglycerin (Nitroglycerin (Sl Tab) 0.4 Mg) 1 tab Q5M PRN SL CHEST PAIN; Start 03/28/18 at 16:30 Acetaminophen (Tylenol Tab) 650 mg Q6H PRN PO PAIN LEVEL 1-3 OR FEVER; Start 03/28/18 at 16:30 Docusate Sodium (Colace) 100 mg Q12H PRN PO CONSTIPATION Last administered on 04/06/18at 22:50; Admin Dose 100 MG; Start 03/28/18 at 16:30 Magnesium Hydroxide (Milk Of Mag) 30 ml DAILY PRN PO CONSTIPATION Last administered on 04/06/18at 22:50; Admin Dose 30 ML; Start 03/28/18 at 16:30 Enoxaparin Sodium (Lovenox) 40 mg DAILY SC Last administered on 04/12/18at 08:29; Admin Dose 40 MG; Start 03/29/18 at 09:00 Sacubitril/ Valsartan (Entresto 24 Mg-26 Mg) 1 tab BID PO Last administered on 04/12/18at 08:18; Admin Dose 1 TAB; Start 03/28/18 at 21:00 Nystatin (Nystatin Powder) 1 applic BID TOP Last administered on 04/12/18at 08:20; Admin Dose 1 APPLIC; Start 03/28/18 at 21:00 Cholecalciferol (Vitamin D) 2,000 unit BID PO Last administered on 04/12/18at 08:18; Admin Dose 2,000 UNIT; Start 03/28/18 at 21:00 Miscellaneous Information (Pending Santyl Order For Wound Care) This patient rivera... PRN PRN XX soiled; Start 03/28/18 at 19:00 Senna/Docusate Sodium (Senokot-S) 2 tab DAILY PO Last administered on 04/12/18a t 08:18; Admin Dose 2 TAB; Start 03/30/18 at 09:00 Ascorbic Acid (Vitamin C) 500 mg BID PO Last administered on 04/12/18 08:33; Admin Dose 500 MG; Start 03/29/18 at 21:00; Stop 04/12/18 at 20:59 Zinc Sulfate (Zinc Sulfate) 220 mg DAILY PO Last administered on 04/12/18 08:18; Admin Dose 220 MG; Start 03/30/18 at 09:00; Stop 04/13/18 at 08:59 Multivitamins Therapeutic (Theragran) 1 tab DAILY PO Last administered on 04/12/18 08:18; Admin Dose 1 TAB; Start 03/30/18 at 09:00 Gabapentin (Neurontin) 200 mg TID PO Last administered on 04/12/18 12:43; Admin Dose 200 MG; Start 03/30/18 at 13:00 Oxycodone HCl (Oxycontin) 20 mg BID PRN PO PAIN LEVEL 6-10 Last administered on 04/12/18 08:33; Admin Dose 20 MG; Start 03/31/18 at 15:00 Digoxin (Digoxin) 0.125 mg DAILY@13 PO Last administered on 04/12/18 12:43; Admin Dose 0.125 MG; Start 04/02/18 at 13:00 Oxycodone/ Acetaminophen (Percocet (5/ 325)) 1 tab Q4H PRN PO MODERATE PAIN LEVEL 4-6 Last administered on 04/12/18 12:45; Admin Dose 1 TAB; Start 04/02/18 at 14:00 Bisacodyl (Dulcolax) 5 mg DAILY PRN PO CONSTIPATION Last administered on 04/05/18at 20:24; Admin Dose 5 MG; Start 04/02/18 at 18:30 Collagenase (Santyl) 1 applic DAILY TOP Last administered on 04/12/18 08:19; Admin Dose 1 APPLIC; Start 04/03/18 at 11:00 Vancomycin HCl (Vanco Iv Per Pharmacy) VANCOMYCIN PER PHARMACY PER PROTOCOL XX ; Start 04/04/18 at 17:30 Furosemide (Lasix) 40 mg DAILY PO Last administered on 04/12/18at 08:18; Admin Dose 40 MG; Start 04/06/18 at 09:00 Vancomycin HCl 750 mg/Sodium Chloride 150 ml @ 75 mls/hr Q24H IVPB Last administered on 04/11/18at 23:50; Admin Dose 75 MLS/HR; Start 04/05/18 at 23:00 Mupirocin (Bactroban) 1 applic BID TOP Last administered on 04/12/18at 08:20; Admin Dose 1 APPLIC; Start 04/06/18 at 21:00 Cefepime HCl 50 ml @ 100 mls/hr Q12 IVPB Last administered on 04/12/18at 08:19; Admin Dose 100 MLS/HR; Start 04/09/18 at 15:30 Metoprolol Succinate (Toprol Xl) 75 mg BID PO ; Start 04/12/18 at 21:00 Miscellaneous Information (*Rx Drug Level Order Reminder*) JUSTINE TR AT 2,200 ONCE ONCE XX ; Start 04/12/18 at 22:00; Stop 04/12/18 at 22:01 NAYELI MADERA NP Apr 12, 2018 14:24
[2018-04-12] MEDS: MONTELUKAST 10 MG TAB PO SCH (21:52)
[2018-04-12] MEDS: ATORVASTATIN 80 MG TAB PO SCH (21:52)
[2018-04-12] MEDS: ACETAMINOPHEN 325 MG TAB PO PRN (21:52)
[2018-04-12] MEDS: METOPROLOL (XL) 25 MG TAB PO SCH (21:53)
[2018-04-12] MEDS: TAMSULOSIN (SR) 0.4 MG CAP PO SCH (21:54)
[2018-04-12] MEDS: VANCOMYCIN 750 MG in SOD CHLORIDE 0.9% 150 ML IVPB SCH (23:00)
[2018-04-13] VITALS (12 sets, daily range): BP systolic 97–116; BP diastolic 57–61; PULSE 95–106; RESP 17–20
[2018-04-13] MEDS: PANTOPRAZOLE (EC) 40 MG TAB PO SCH (06:30)
[2018-04-13] MEDS: ALBUTEROL/IPRATROPIUM (NEB) 3 ML AMP HHN SCH ×3 (08:07→20:07)
[2018-04-13] MEDS: BUDESONIDE (NEB) 0.5MG/2ML AMP HHN SCH ×2 (08:07→20:08)
[2018-04-13] MEDS: SPIRONOLACTONE 25 MG TAB PO SCH (08:19)
[2018-04-13] MEDS: CHOLECALCIFEROL 2,000 UNIT CAP PO SCH ×2 (08:19→21:11)
[2018-04-13] MEDS: COLLAGENASE 5 GM (UD JAR) TOP SCH (08:19)
[2018-04-13] MEDS: GABAPENTIN 100 MG CAP PO SCH ×3 (08:19→21:10)
[2018-04-13] MEDS: CEFEPIME 1GM/50 ML (PMX) 50 ML IVPB SCH ×2 (08:19→21:12)
[2018-04-13] MEDS: MULTIVITAMINS THERAPEUTIC TAB PO SCH (08:19)
[2018-04-13] MEDS: FERROUS GLUCONATE (EC) 325 MG TAB PO SCH ×2 (08:20→21:11)
[2018-04-13] MEDS: SENNA/DOCUSATE NA (8.6MG/50MG) TAB PO SCH (08:20)
[2018-04-13] MEDS: SACUBITRIL/VALSARTAN (24mg-26mg) TABLET PO SCH ×2 (08:20→21:11)
[2018-04-13] MEDS: METOPROLOL (XL) 25 MG TAB PO SCH (08:21)
[2018-04-13] MEDS: MUPIROCIN 2% 22 GM OINT TOP SCH ×2 (08:21→21:12)
[2018-04-13] MEDS: NYSTATIN 30 GM POWDER BTL TOP SCH ×2 (08:21→21:12)
[2018-04-13] MEDS: ENOXAPARIN 40 MG/0.4 ML SYG SC SCH (08:36)
[2018-04-13] MEDS: FUROSEMIDE 40 MG TAB PO SCH (08:37)
--- NOTE | 2018-04-13 08:54 | PN ---
Date/Time of Note Date/Time of Note DATE: 04/13/18 TIME: 08:54 Assessment/Plan VTE Prophylaxis Risk score (from Nsg)>0 risk: 5 SCD applied (from Ns): No SCD contraindicated: bilateral amputee Pharmacological prophylaxis: apixaban Lines/Catheters IV Catheter Type (from Nrs): Saline Lock Urinary Cath still in place: No Assessment/Plan Assessment/Plan 1. Acute infection in right thigh s/p amputation at [facility] - IR drained large amount of pus from right stump and sent for cultures. Due to location, ortho, vascular, and surgery not comfortable with performing any intervention at this time. Will ask general surgery for official evaluation and recommendations - ID on board and appreciate recommendations. Will continue current antibiotics and await cultures from abscess - Pain management on board and appreciate consultation. Discussed with patient will increase to Oxy to 30 mg but if experiencing increase in grogginess, will go back to 20mg - LE US negative for DVT. 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 Discussed with vascular, Dr. Rodríguez, who said it was chronic and will need to follow up with outpatient clinic at [facility] since RLE amputation was performed there. - PT/OT on board 2. leukocytosis - ID on board and appreciate recommendations 3. Acute on chronic systolic heart failure- resolved - Cardiology consultation appreciated. - Echo results noted from prior admission with EF 20% 4. Wounds on elbows and sacrum - wound consultation appreciated 5. CAD - continue all home medications - stable 6. b/l AKA secondary to PVD 7. Episode of sustained vtach- resolved - Cardiology on board and continues to adjust medications as needed 8. Disposition - Continue current antibiotics and await culture results. Will ask gen surgery to evaluate for possible I&D Result Diagram: 04/13/18 0509 04/12/18 0450 Results 24hrs Laboratory Tests Test 04/12/18 22:12 04/13/18 05:09 Vancomycin Level Trough 13.7 White Blood Count 18.1 H Red Blood Count 4.86 Hemoglobin 11.5 L Hematocrit 36.2 L Mean Corpuscular Volume 74.5 L Mean Corpuscular Hemoglobin 23.7 L Mean Corpuscular Hemoglobin Concent 31.8 L Red Cell Distribution Width 20.6 H Platelet Count 532 H Mean Platelet Volume 11.1 H Immature Granulocytes % 0.800 H Neutrophils % 81.7 H Lymphocytes % 8.3 L Monocytes % 8.8 Eosinophils % 0.2 Basophils % 0.2 Nucleated Red Blood Cells % 0.0 Immature Granulocytes # 0.140 H Neutrophils # 14.8 H Lymphocytes # 1.5 Monocytes # 1.6 H Eosinophils # 0.0 Basophils # 0.0 Nucleated Red Blood Cells # 0.0 Subjective 24 Hr Interval Summary Free Text/Dictation Patient states he's experiencing a new type of pain following IR drainage of abscess. Denies any chest pain or shortness of breath. Exam/Review of Systems Vital Signs Vitals Vital Signs Date Temp Pulse Resp B/P (MAP) Pulse Ox O2 O2 Flow FiO2 Time Delivery Rate 04/13/18 102 22 95 21 08:07 04/13/18 98.0 99/59 (72) Nasal 07:32 Cannula 04/10/18 2.0 14:15 Intake and Output 04/12/18 04/12/18 04/13/18 1515:00 23:00 07:00 IntakeIntake Total 200 ml 620 ml 500 ml OutputOutput Total 300 ml 1200 ml 450 ml BalanceBalance -100 ml -580 ml 50 ml Exam General: Patient is laying in bed and answers questions appropriately Neck: Supple Respiratory: Clear to auscultation bilaterally. no wheezing or rhonchi Cardiovascular: regular rate and rhythm, no obvious murmurs Gastrointestinal: soft, non-tender to palpation, nondistended. bowel sounds heard. Neurological: Moves all extremities spontaneously Musculoskeletal: Bilateral AKA Skin: small fluctuant area posterior aspect right stump, no warmth or discharge appreciated. Medications Medications Current Medications Atorvastatin Calcium (Lipitor) 80 mg QHS PO Last administered on 04/12/18at 21:52; Admin Dose 80 MG; Start 03/28/18 at 21:00 Budesonide (Pulmicort (Neb)) 0.5 mg BID RESP THERAPY HHN Last administered on 04/13/18 08:07; Admin Dose 0.5 MG; Start 03/28/18 at 20:00 Ferrous Gluconate (Fergon) 325 mg BID PO Last administered on 04/13/18 08:20; Admin Dose 325 MG; Start 03/28/18 at 21:00 Albuterol/ Ipratropium (Duoneb) 3 ml Q6HWA RESP THERAPY HHN Last administered on 12/28/18at 08:07; Admin Dose 3 ML; Start 03/28/18 at 20:00 Montelukast Sodium (Singulair) 10 mg QHS PO Last administered on 04/12/18 21:52; Admin Dose 10 MG; Start 03/28/18 at 21:00 Pantoprazole (Protonix Tab) 40 mg DAILY@06 PO Last administered on 04/13/18 06:30; Admin Dose 40 MG; Start 03/29/18 at 06:00 Spironolactone (Aldactone) 25 mg DAILY PO Last administered on 04/13/18 08:19; Admin Dose 25 MG; Start 03/29/18 at 09:00 Tamsulosin HCl (Flomax) 0.4 mg HS PO Last administered on 04/12/18 21:54; Admin Dose 0.4 MG; Start 03/28/18 at 21:00 Tiotropium [place] (Spiriva) 1 inh DAILY INH Last administered on 04/12/18 08:18; Admin Dose 1 INH; Start 03/29/18 at 09:00 Albuterol (Proventil 0.083% (Neb)) 2.5 mg Q2H RESP THERAPY PRN HHN SHORTNESS OF BREATH Last administered on 04/06/18at 19:39; Admin Dose 2.5 MG; Start 03/28/18 at 16:30 IV Flush (NS 3 ml) 3 ml PER PROTOCOL IV ; Start 03/28/18 at 16:30 Ondansetron HCl (Zofran Inj) 4 mg Q6H PRN IV NAUSEA AND/OR VOMITING; Start 03/28/18 at 16:30 Nitroglycerin (Nitroglycerin (Sl Tab) 0.4 Mg) 1 tab Q5M PRN SL CHEST PAIN; Start 03/28/18 at 16:30 Acetaminophen (Tylenol Tab) 650 mg Q6H PRN PO PAIN LEVEL 1-3 OR FEVER Last administered on 04/12/18 21:52; Admin Dose 650 MG; Start 03/28/18 at 16:30 Docusate Sodium (Colace) 100 mg Q12H PRN PO CONSTIPATION Last administered on 04/06/18 22:50; Admin Dose 100 MG; Start 03/28/18 at 16:30 Magnesium Hydroxide (Milk Of Mag) 30 ml DAILY PRN PO CONSTIPATION Last administered on 04/06/18at 22:50; Admin Dose 30 ML; Start 03/28/18 at 16:30 Enoxaparin Sodium (Lovenox) 40 mg DAILY SC Last administered on 04/13/18 08:36; Admin Dose 40 MG; Start 03/29/18 at 09:00 Sacubitril/ Valsartan (Entresto 24 Mg-26 Mg) 1 tab BID PO Last administered on 04/12/18 21:54; Admin Dose 1 TAB; Start 03/28/18 at 21:00 Nystatin (Nystatin Powder) 1 applic BID TOP Last administered on 04/13/18 08:21; Admin Dose 1 APPLIC; Start 03/28/18 at 21:00 Cholecalciferol (Vitamin D) 2,000 unit BID PO Last administered on 04/13/18 08:19; Admin Dose 2,000 UNIT; Start 03/28/18 at 21:00 Miscellaneous Information (Pending [facility] Order For Wound Care) This patient rivera... PRN PRN XX soiled; Start 03/28/18 at 19:00 Senna/Docusate Sodium (Senokot-S) 2 tab DAILY PO Last administered on 04/13/18 08:20; Admin Dose 2 TAB; Start 03/30/18 at 09:00 Zinc Sulfate (Zinc Sulfate) 220 mg DAILY PO Last administered on 04/12/18 08:18; Admin Dose 220 MG; Start 03/30/18 at 09:00; Stop 04/13/18 at 08:59 Multivitamins Therapeutic (Theragran) 1 tab DAILY PO Last administered on 04/13/18 08:19; Admin Dose 1 TAB; Start 03/30/18 at 09:00 Gabapentin (Neurontin) 200 mg TID PO Last administered on 04/13/18 08:19; Admin Dose 200 MG; Start 03/30/18 at 13:00 Oxycodone HCl (Oxycontin) 20 mg BID PRN PO PAIN LEVEL 6-10 Last administered on 04/12/18 21:55; Admin Dose 20 MG; Start 03/31/18 at 15:00 Digoxin (Digoxin) 0.125 mg DAILY@13 PO Last administered on 04/12/18 12:43; Admin Dose 0.125 MG; Start 04/02/18 at 13:00 Oxycodone/ Acetaminophen (Percocet (5/ 325)) 1 tab Q4H PRN PO MODERATE PAIN LEVEL 4-6 Last administered on 04/12/18 19:26; Admin Dose 1 TAB; Start 04/02/18 at 14:00 Bisacodyl (Dulcolax) 5 mg DAILY PRN PO CONSTIPATION Last administered on 20:24; Admin Dose 5 MG; Start 04/02/18 at 18:30 Collagenase (Santyl) 1 applic DAILY TOP Last administered on 04/13/18 08:19; Admin Dose 1 APPLIC; Start 04/03/18 at 11:00 Vancomycin HCl (Vanco Iv Per Pharmacy) VANCOMYCIN PER PHARMACY PER PROTOCOL XX ; Start 04/04/18 at 17:30 Furosemide (Lasix) 40 mg DAILY PO Last administered on 04/13/18 08:37; Admin Dose 40 MG; Start 04/06/18 at 09:00 Vancomycin HCl 750 mg/Sodium Chloride 150 ml @ 75 mls/hr Q24H IVPB Last administered on 04/12/18 23:00; Admin Dose 75 MLS/HR; Start 04/05/18 at 23:00 Mupirocin (Bactroban) 1 applic BID TOP Last administered on 04/13/18 08:21; Admin Dose 1 APPLIC; Start 04/06/18 at 21:00 Cefepime HCl 50 ml @ 100 mls/hr Q12 IVPB Last administered on 04/13/18 08:19; Admin Dose 100 MLS/HR; Start 04/09/18 at 15:30 Metoprolol Succinate (Toprol Xl) 75 mg BID PO Last administered on 04/12/18 21:53; Admin Dose 75 MG; Start 04/12/18 at 21:00 SUSAN FAULKNER MD Apr 13, 2018 08:54
[2018-04-13] MEDS: TIOTROPIUM 18 MCG CAPSULE INHA DEV INH SCH (09:46)
[2018-04-13] MEDS: oxyCODONE (CR) 20 MG TAB [oxyCONTIN] PO PRN (10:35)
--- NOTE | 2018-04-13 11:25 | CONS ---
Date/Time of Note Date/Time of Note DATE: 04/13/18 TIME: 11:24 Assessment/Plan Assessment/Plan Hospital Course Alert, looks comfortable, no fevers Antimicrobials: Cefepime, Vancomycin, topical Bactroban Microbiology: Blood cultures negative, MRSA swab positive Allergy: Tetracycline Physical examination: Well-nourished well-developed elderly -[place]ese man who is in no distress. Head atraumatic normocephalic neck is supple chest rise symmetrical breath sounds diminished bases. Heart: S1-S2. Abdomen soft bowel sounds present. Extremities without cyanosis patient has bilateral above-knee amputation, right stump painful to touch with some fluctuance and swelling. Skin: Patient has multiple pressure sores Assessment: 1. Persistent leukocytosis secondary to right lower extremity stump abscess 2. Status post recurrent CHF 3. COPD 4. Substance abuse 5. Multiple wounds and pressure sores 6. History of methicillin-resistant Staphylococcus aureus infected graft, status post debridement back in 06/2017, per patient, the rest of the graft was removed at [facility], he completed IV vancomycin back in January 7. History of CABG and TN 8. Diabetes 9. MRSA nares colonization Plan: Stable, status post ultrasoundguided fluid drainage, continue abx, follow fluid culture, surgical eval Result Diagram: 04/13/18 0509 04/12/18 0450 Results 24hrs Laboratory Tests Test 04/12/18 22:12 04/13/18 05:09 Vancomycin Level Trough 13.7 White Blood Count 18.1 H Red Blood Count 4.86 Hemoglobin 11.5 L Hematocrit 36.2 L Mean Corpuscular Volume 74.5 L Mean Corpuscular Hemoglobin 23.7 L Mean Corpuscular Hemoglobin Concent 31.8 L Red Cell Distribution Width 20.6 H Platelet Count 532 H Mean Platelet Volume 11.1 H Immature Granulocytes % 0.800 H Neutrophils % 81.7 H Lymphocytes % 8.3 L Monocytes % 8.8 Eosinophils % 0.2 Basophils % 0.2 Nucleated Red Blood Cells % 0.0 Immature Granulocytes # 0.140 H Neutrophils # 14.8 H Lymphocytes # 1.5 Monocytes # 1.6 H Eosinophils # 0.0 Basophils # 0.0 Nucleated Red Blood Cells # 0.0 Consultation Date/Type/Reason Admit Date/Time Mar 29, 2018 at 07:48 Initial Consult Date Type of Consult ID Requesting Provider: SUSAN FAULKNER MD Exam/Review of Systems Vital Signs Vitals Vital Signs Date Temp Pulse Resp B/P (MAP) Pulse Ox O2 O2 Flow FiO2 Time Delivery Rate 04/13/18 102 22 95 21 08:07 04/13/18 98.0 99/59 (72) Nasal 07:32 Cannula 04/10/18 2.0 14:15 Intake and Output 04/12/18 04/12/18 04/13/18 1515:00 23:00 07:00 IntakeIntake Total 200 ml 620 ml 500 ml OutputOutput Total 300 ml 1200 ml 450 ml BalanceBalance -100 ml -580 ml 50 ml Medications Medications Current Medications Atorvastatin Calcium (Lipitor) 80 mg QHS PO Last administered on 04/12/18 21:52; Admin Dose 80 MG; Start 03/28/18 at 21:00 Budesonide (Pulmicort (Neb)) 0.5 mg BID RESP THERAPY HHN Last administered on 04/13/18 08:07; Admin Dose 0.5 MG; Start 03/28/18 at 20:00 Ferrous Gluconate (Fergon) 325 mg BID PO Last administered on 04/13/18 08:20; Admin Dose 325 MG; Start 03/28/18 at 21:00 Albuterol/ Ipratropium (Duoneb) 3 ml Q6HWA RESP THERAPY HHN Last administered on 04/13/18 08:07; Admin Dose 3 ML; Start 03/28/18 at 20:00 Montelukast Sodium (Singulair) 10 mg QHS PO Last administered on 04/12/18 21:52; Admin Dose 10 MG; Start 03/28/18 at 21:00 Pantoprazole (Protonix Tab) 40 mg DAILY@06 PO Last administered on 04/13/18 06:30; Admin Dose 40 MG; Start 03/29/18 at 06:00 Spironolactone (Aldactone) 25 mg DAILY PO Last administered on 04/13/18 08:19; Admin Dose 25 MG; Start 03/29/18 at 09:00 Tamsulosin HCl (Flomax) 0.4 mg HS PO Last administered on 04/12/18 21:54; Admin Dose 0.4 MG; Start 03/28/18 at 21:00 Tiotropium [place] (Spiriva) 1 inh DAILY INH Last administered on 04/13/18 09:46; Admin Dose 1 INH; Start 03/29/18 at 09:00 Albuterol (Proventil 0.083% (Neb)) 2.5 mg Q2H RESP THERAPY PRN HHN SHORTNESS OF BREATH Last administered on 04/06/18 19:39; Admin Dose 2.5 MG; Start 03/28/18 at 16:30 IV Flush (NS 3 ml) 3 ml PER PROTOCOL IV ; Start 03/28/18 at 16:30 Ondansetron HCl (Zofran Inj) 4 mg Q6H PRN IV NAUSEA AND/OR VOMITING; Start 03/28/18 at 16:30 Nitroglycerin (Nitroglycerin (Sl Tab) 0.4 Mg) 1 tab Q5M PRN SL CHEST PAIN; Start 03/28/18 at 16:30 Acetaminophen (Tylenol Tab) 650 mg Q6H PRN PO PAIN LEVEL 1-3 OR FEVER Last administered on 04/12/18 21:52; Admin Dose 650 MG; Start 03/28/18 at 16:30 Docusate Sodium (Colace) 100 mg Q12H PRN PO CONSTIPATION Last administered on 04/06/18 22:50; Admin Dose 100 MG; Start 03/28/18 at 16:30 Magnesium Hydroxide (Milk Of Mag) 30 ml DAILY PRN PO CONSTIPATION Last administered on 04/06/18 22:50; Admin Dose 30 ML; Start 03/28/18 at 16:30 Enoxaparin Sodium (Lovenox) 40 mg DAILY SC Last administered on 04/13/18 08:36; Admin Dose 40 MG; Start 03/29/18 at 09:00 Sacubitril/ Valsartan (Entresto 24 Mg-26 Mg) 1 tab BID PO Last administered on 04/12/18 21:54; Admin Dose 1 TAB; Start 03/28/18 at 21:00 Nystatin (Nystatin Powder) 1 applic BID TOP Last administered on 04/13/18 08:21; Admin Dose 1 APPLIC; Start 03/28/18 at 21:00 Cholecalciferol (Vitamin D) 2,000 unit BID PO Last administered on 04/13/18 08:19; Admin Dose 2,000 UNIT; Start 03/28/18 at 21:00 Miscellaneous Information (Pending Santyl Order For Wound Care) This patient rivera... PRN PRN XX soiled; Start 03/28/18 at 19:00 Senna/Docusate Sodium (Senokot-S) 2 tab DAILY PO Last administered on 04/13/18 08:20; Admin Dose 2 TAB; Start 03/30/18 at 09:00 Multivitamins Therapeutic (Theragran) 1 tab DAILY PO Last administered on 04/13/18 08:19; Admin Dose 1 TAB; Start 03/30/18 at 09:00 Gabapentin (Neurontin) 200 mg TID PO Last administered on 04/13/18 08:19; Admin Dose 200 MG; Start 03/30/18 at 13:00 Oxycodone HCl (Oxycontin) 20 mg BID PRN PO PAIN LEVEL 6-10 Last administered on 04/13/18 10:35; Admin Dose 20 MG; Start 03/31/18 at 15:00 Digoxin (Digoxin) 0.125 mg DAILY@13 PO Last administered on 04/12/18 12:43; Admin Dose 0.125 MG; Start 04/02/18 at 13:00 Oxycodone/ Acetaminophen (Percocet (5/ 325)) 1 tab Q4H PRN PO MODERATE PAIN LEVEL 4-6 Last administered on 04/12/18 19:26; Admin Dose 1 TAB; Start 04/02/18 at 14:00 Bisacodyl (Dulcolax) 5 mg DAILY PRN PO CONSTIPATION Last administered on 04/05/18 20:24; Admin Dose 5 MG; Start 04/02/18 at 18:30 Collagenase (Santyl) 1 applic DAILY TOP Last administered on 04/13/18 08:19; Admin Dose 1 APPLIC; Start 04/03/18 at 11:00 Vancomycin HCl (Vanco Iv Per Pharmacy) VANCOMYCIN PER PHARMACY PER PROTOCOL XX ; Start 04/04/18 at 17:30 Furosemide (Lasix) 40 mg DAILY PO Last administered on 04/13/18 08:37; Admin Dose 40 MG; Start 04/06/18 at 09:00 Vancomycin HCl 750 mg/Sodium Chloride 150 ml @ 75 mls/hr Q24H IVPB Last administered on 04/12/18 23:00; Admin Dose 75 MLS/HR; Start 04/05/18 at 23:00 Mupirocin (Bactroban) 1 applic BID TOP Last administered on 04/13/18at 08:21; Admin Dose 1 APPLIC; Start 04/06/18 at 21:00 Cefepime HCl 50 ml @ 100 mls/hr Q12 IVPB Last administered on 04/13/18at 08:19; Admin Dose 100 MLS/HR; Start 04/09/18 at 15:30 Metoprolol Succinate (Toprol Xl) 75 mg BID PO Last administered on 04/12/18at 21:53; Admin Dose 75 MG; Start 04/12/18 at 21:00 NAYELI MADERA NP Apr 13, 2018 11:25
[2018-04-13] MEDS: DIGOXIN 0.125 MG TAB PO SCH (12:23)
[2018-04-13] MEDS ORDERED: oxyCODONE 5 MG TAB PO ONE (13:00)
[2018-04-13] MEDS ORDERED: oxyCODONE 15 MG TAB PO PRN (13:00)
--- NOTE | 2018-04-13 13:19 | CONS ---
Date/Time of Note Date/Time of Note DATE: 04/13/18 TIME: 13:16 Assessment/Plan Assessment/Plan Hospital Course IMPRESSION: 1. Congestive heart failure exacerbation, systolic, acute on chronic. 2. Cardiomyopathy with severely depressed left ventricular ejection fraction with last being approximately 20%. 3. Hypertension. 4. Dyslipidemia. 5. History of substance abuse. 6. Chronic obstructive pulmonary disease. 7. Bilateral lower extremity amputation and presenting with right stump pain. 8. Questionable history of intracardiac thrombus not seen by most recent echocardiogram dated 01/06/2018, but with severely depressed ejection fraction at that time of 20%. 9. Tobacco intake. 10. SVT-regular recurrent to 160-180. Broke with PO BB. Also questionable WCT right before. Had recurrent SVT o/n 04/01. has ongoiong S tachycardia Recc: -Tele -serial ecg's -Continue entresto -Continue BB as tolerated -Continue aldactone -Continue lasix daily -Continue bronchodilators/abx's and f/u cx data -Continue po digoxin -pain control -possible need for surgical intervention on stump? Result Diagram: 04/13/18 0509 04/12/18 0450 Results 24hrs Laboratory Tests Test 04/12/18 22:12 04/13/18 05:09 Vancomycin Level Trough 13.7 White Blood Count 18.1 H Red Blood Count 4.86 Hemoglobin 11.5 L Hematocrit 36.2 L Mean Corpuscular Volume 74.5 L Mean Corpuscular Hemoglobin 23.7 L Mean Corpuscular Hemoglobin Concent 31.8 L Red Cell Distribution Width 20.6 H Platelet Count 532 H Mean Platelet Volume 11.1 H Immature Granulocytes % 0.800 H Neutrophils % 81.7 H Lymphocytes % 8.3 L Monocytes % 8.8 Eosinophils % 0.2 Basophils % 0.2 Nucleated Red Blood Cells % 0.0 Immature Granulocytes # 0.140 H Neutrophils # 14.8 H Lymphocytes # 1.5 Monocytes # 1.6 H Eosinophils # 0.0 Basophils # 0.0 Nucleated Red Blood Cells # 0.0 Consultation Date/Type/Reason Admit Date/Time Mar 29, 2018 at 07:48 Initial Consult Date 03/29/18 Type of Consult cardiology Reason for Consultation CHF Requesting Provider: SUSAN FAULKNER MD Exam/Review of Systems Vital Signs Vitals Vital Signs Date Temp Pulse Resp B/P (MAP) Pulse Ox O2 O2 Flow FiO2 Time Delivery Rate 04/13/18 101 12:00 04/13/18 98.1 19 100/61 98 11:29 (74) 04/13/18 21 08:07 04/13/18 Nasal 07:32 Cannula 04/10/18 2.0 14:15 Intake and Output 04/12/18 04/12/18 04/13/18 1515:00 23:00 07:00 IntakeIntake Total 200 ml 620 ml 500 ml OutputOutput Total 300 ml 1200 ml 450 ml BalanceBalance -100 ml -580 ml 50 ml Exam Review of Systems: CONSTITUTIONAL: No fevers, chills. PULMONARY: No sob CARDIOVASCULAR: No chest pain/palpitations GASTROINTESTINAL: No nausea/vomiting. GENITOURINARY: No hematuria/dysuria. MUSCULOSKELETAL: pain in leg PSYCHIATRIC: The patient denies depression. NEUROLOGIC: No weakness Constitutional: alert Psych: no complaints Head: normocephalic ENMT: mucosa pink and moist Neck: supple, jvd (9 cm water) Respiratory: diminished breath sounds Cardiovascular: regular rate and rhythm Gastrointestinal: soft, non-tender Musculoskeletal: muscle tone (normal) Extremities: edema (none) Neurological: other (No focal deficits) Medications Medications Current Medications Atorvastatin Calcium (Lipitor) 80 mg QHS PO Last administered on 04/12/18at 21:52; Admin Dose 80 MG; Start 03/28/18 at 21:00 Budesonide (Pulmicort (Neb)) 0.5 mg BID RESP THERAPY HHN Last administered on 04/13/18 08:07; Admin Dose 0.5 MG; Start 03/28/18 at 20:00 Ferrous Gluconate (Fergon) 325 mg BID PO Last administered on 04/13/18 08:20; Admin Dose 325 MG; Start 03/28/18 at 21:00 Albuterol/ Ipratropium (Duoneb) 3 ml Q6HWA RESP THERAPY HHN Last administered on 04/13/18 08:07; Admin Dose 3 ML; Start 03/28/18 at 20:00 Montelukast Sodium (Singulair) 10 mg QHS PO Last administered on 04/12/18 21:52; Admin Dose 10 MG; Start 03/28/18 at 21:00 Pantoprazole (Protonix Tab) 40 mg DAILY@06 PO Last administered on 04/13/18 06:30; Admin Dose 40 MG; Start 03/29/18 at 06:00 Spironolactone (Aldactone) 25 mg DAILY PO Last administered on 04/13/18 08:19; Admin Dose 25 MG; Start 03/29/18 at 09:00 Tamsulosin HCl (Flomax) 0.4 mg HS PO Last administered on 04/12/18 21:54; Admin Dose 0.4 MG; Start 03/28/18 at 21:00 Tiotropium [place] (Spiriva) 1 inh DAILY INH Last administered on 04/13/18 09:46; Admin Dose 1 INH; Start 03/29/18 at 09:00 Albuterol (Proventil 0.083% (Neb)) 2.5 mg Q2H RESP THERAPY PRN HHN SHORTNESS OF BREATH Last administered on 04/06/18 19:39; Admin Dose 2.5 MG; Start 03/28/18 at 16:30 IV Flush (NS 3 ml) 3 ml PER PROTOCOL IV ; Start 03/28/18 at 16:30 Ondansetron HCl (Zofran Inj) 4 mg Q6H PRN IV NAUSEA AND/OR VOMITING; Start 03/28/18 at 16:30 Nitroglycerin (Nitroglycerin (Sl Tab) 0.4 Mg) 1 tab Q5M PRN SL CHEST PAIN; Start 03/28/18 at 16:30 Acetaminophen (Tylenol Tab) 650 mg Q6H PRN PO PAIN LEVEL 1-3 OR FEVER Last administered on 04/12/18 21:52; Admin Dose 650 MG; Start 03/28/18 at 16:30 Docusate Sodium (Colace) 100 mg Q12H PRN PO CONSTIPATION Last administered on 04/06/18 22:50; Admin Dose 100 MG; Start 03/28/18 at 16:30 Magnesium Hydroxide (Milk Of Mag) 30 ml DAILY PRN PO CONSTIPATION Last administered on 04/06/18 22:50; Admin Dose 30 ML; Start 03/28/18 at 16:30 Enoxaparin Sodium (Lovenox) 40 mg DAILY SC Last administered on 04/13/18 08:36; Admin Dose 40 MG; Start 03/29/18 at 09:00 Sacubitril/ Valsartan (Entresto 24 Mg-26 Mg) 1 tab BID PO Last administered on 04/12/18 21:54; Admin Dose 1 TAB; Start 03/28/18 at 21:00 Nystatin (Nystatin Powder) 1 applic BID TOP Last administered on 04/13/18 08:21; Admin Dose 1 APPLIC; Start 03/28/18 at 21:00 Cholecalciferol (Vitamin D) 2,000 unit BID PO Last administered on 04/13/18 08:19; Admin Dose 2,000 UNIT; Start 03/28/18 at 21:00 Miscellaneous Information (Pending Santyl Order For Wound Care) This patient rivera... PRN PRN XX soiled; Start 03/28/18 at 19:00 Senna/Docusate Sodium (Senokot-S) 2 tab DAILY PO Last administered on 04/13/18 08:20; Admin Dose 2 TAB; Start 03/30/18 at 09:00 Multivitamins Therapeutic (Theragran) 1 tab DAILY PO Last administered on 04/13/18 08:19; Admin Dose 1 TAB; Start 03/30/18 at 09:00 Gabapentin (Neurontin) 200 mg TID PO Last administered on 04/13/18 12:23; Admin Dose 200 MG; Start 03/30/18 at 13:00 Digoxin (Digoxin) 0.125 mg DAILY@13 PO Last administered on 04/13/18 12:23; Admin Dose 0.125 MG; Start 04/02/18 at 13:00 Oxycodone/ Acetaminophen (Percocet (5/ 325)) 1 tab Q4H PRN PO MODERATE PAIN LEVEL 4-6 Last administered on 04/12/18 19:26; Admin Dose 1 TAB; Start 04/02/18 at 14:00 Bisacodyl (Dulcolax) 5 mg DAILY PRN PO CONSTIPATION Last administered on 04/05/18 20:24; Admin Dose 5 MG; Start 04/02/18 at 18:30 Collagenase (Santyl) 1 applic DAILY TOP Last administered on 04/13/18 08:19; Admin Dose 1 APPLIC; Start 04/03/18 at 11:00 Vancomycin HCl (Vanco Iv Per Pharmacy) VANCOMYCIN PER PHARMACY PER PROTOCOL XX ; Start 04/04/18 at 17:30 Furosemide (Lasix) 40 mg DAILY PO Last administered on 04/13/18at 08:37; Admin Dose 40 MG; Start 04/06/18 at 09:00 Vancomycin HCl 750 mg/Sodium Chloride 150 ml @ 75 mls/hr Q24H IVPB Last administered on 04/12/18at 23:00; Admin Dose 75 MLS/HR; Start 04/05/18 at 23:00 Mupirocin (Bactroban) 1 applic BID TOP Last administered on 04/13/18at 08:21; Admin Dose 1 APPLIC; Start 04/06/18 at 21:00 Cefepime HCl 50 ml @ 100 mls/hr Q12 IVPB Last administered on 04/13/18 08:19; Admin Dose 100 MLS/HR; Start 04/09/18 at 15:30 Metoprolol Succinate (Toprol Xl) 75 mg BID PO Last administered on 04/12/18at 21:53; Admin Dose 75 MG; Start 04/12/18 at 21:00 Oxycodone HCl (Oxycontin) 30 mg BID PRN PO PAIN LEVEL 6-10; Start 04/13/18 at 13:00; Status VIVIAN SWANSON Apr 13, 2018 13:19
[2018-04-13] MEDS: OXYCODONE/ACETAMINOPHEN (5/325) TAB PO PRN ×2 (15:34→23:45)
--- NOTE | 2018-04-13 19:06 | CONS ---
DATE OF ADMISSION: 03/29/2018 DATE OF CONSULTATION: 04/13/2018 TYPE OF CONSULTATION: General surgical. REQUESTING PHYSICIAN: Nurse practitioner, Nayeli Franklin. REASON FOR CONSULTATION: To evaluate this patient in regard to his stump of the right above-knee amputation and possible fluid collection over there, possible abscess and recommend any recommendation. Thank you Ms. Ortiz. I reviewed the patient's chart as much as possible, including from the admission on 06/28/2017 and also I examined the patient. HISTORY OF PRESENT ILLNESS: Basically, this is a gentleman, 62-year-old male, who has had many admissions in this hospital for cardiac problems including congestive heart failure and also peripheral vascular disease, which the last one probably for the peripheral vascular disease was on 06/28/2017. At that time, the patient underwent above-knee amputation of the left lower extremity. The patient also has had an above-knee amputation of the right lower extremity before that in [facility]. PAST MEDICAL HISTORY/REVIEW OF SYSTEM: Please refer to the dictated review of systems and past medical history dictated by the medical service. PHYSICAL EXAMINATION: From a general surgical point of view, I did a mostly focused examination of bilateral lower extremities, but anyway: GENERAL: The patient is alert, awake, oriented, does not look in acute distress, except that complaining of some pain, mainly in the right above-knee amputation stump. Lips are cyanotic. The patient prefers to be in sitting position. HEART: Tachycardia. I cannot hear a murmur. LUNGS: Appears to be clear, except harsh breathing sound bilaterally, lower part. Chest symmetrical expansion. ABDOMEN: Not distended. Bowel sounds present. There are multiple scars of previous multiple operations including the above below the left side on the umbilicus for placement of some grafts according to the patient and also in the groins, multiple scars from previous operation for bypassing different parts of the vascular system peripherally. EXTREMITIES: Lower extremity only: Bilateral above-knee amputation is present. There is no obvious ulcer. Appears that the volume of the muscle and subcutaneous tissue on the right thigh is more than the left side. The skin on both sides is warm. Left side above-knee amputation stump is healed. The patient does not have any specific complaint from that side. On the right side, the patient states that he has been experiencing too much pain on this side, especially since a couple of months before admission and that is actually the reason that he thinks he was admitted. While on admission, he has mentioned above about the congestive heart failure. In any case, as was mentioned, the skin is warm. The patient can move the stump of those remaining lower extremities from the hips voluntarily. There is fluctuation under the skin on the right amputation stump area, especially posteriorly and medially. Apparently in radiology, they have aspirated fluid, but the site of the needle puncture is actually anterior aspect of the thigh and apparently, they have sent it for culture and many other tests, but in the computer I cannot find any report of any culture, stain or any other tests done on that fluid. In the images, a copious amount of fluid has been aspirated. The patient states that the color of the stuff that they aspirated was brownish. IMPRESSION: This is a 62-year-old gentleman, who is currently a smoker at least 40 years' pack cigarette with severe peripheral vascular disease for which eventually he has undergone bilateral amputation above-knee. 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 There are multiple areas of superficial femoral artery occlusion on the right side, probably the profunda femoral artery is open, but it is reconstructed and gets perfusion from the collaterals mainly from the inferior epigastric on the right side. Also, on the left side, it is getting perfusion from the inferior epigastrics on the left side. At that time, Dr. Gil, the vascular surgeon, has seen this patient for the problem of vascular and according to the patient, he did the above-knee amputation on the left side. At that time, noteworthy is that there is a statement about the fluid accumulation in the distal part of the stump on the right thigh, which apparently at that time also was present. It states thickening with fluid about the distal femoral stump, which could represent adventitial bursitis. Therefore, this patient actually has had fluid collection for several months at least and appears at night has increased in amount and this is the color of((recent fluid aspiration)),what they have reported to me was brownish or maybe reddish and this could be due to oozing of blood and MYOGLUBIN from ischemic musculature. Therefore, the patient can have an ischemic myositis of the thigh muscles, which has caused pain and tenderness and also oozing of some fluid with hemoglobin and myoglubin causing reddish discoloration of the fluid. What I recommend is to kindly get another consultation from vascular surgeon, probably Dr. Gil, who is familiar with this patient's situation and condition and also get a consultation from orthopedic surgeon, maybe Dr. Mccoy or any other orthopedic surgeon to evaluate the patient. From a general surgical point of view, we do not have that much to offer for this patient. Draining the fluid is not that difficult, but we have to find out why he is accumulating the fluid, especially reddish-colored fluid and if that is ischemic myositis, then, may be the patient needs to have the level of amputation advanced more proximally. This can be assessed, judged and evaluated by vascular surgeons and orthopedic surgeon. Dictated By: ROC PEREZ MD PS/NTS Conf#: [id number] DID#: [id number] CC: NAYELI FRANKLIN NP; SUSAN FAULKNER MD;*EndCC* MTDD
[2018-04-13] MEDS: oxyCODONE 15 MG TAB PO PRN (19:10)
[2018-04-13] MEDS ORDERED: VITAMIN A & D 5 GM OINT PACKET TOP ONE (19:19)
[2018-04-13] MEDS: METOPROLOL (XL) 50 MG TAB PO SCH (21:11)
[2018-04-13] MEDS: MONTELUKAST 10 MG TAB PO SCH (21:11)
[2018-04-13] MEDS: ACETAMINOPHEN 325 MG TAB PO PRN (21:11)
[2018-04-13] MEDS: TAMSULOSIN (SR) 0.4 MG CAP PO SCH (21:12)
[2018-04-13] MEDS: ATORVASTATIN 80 MG TAB PO SCH (21:12)
[2018-04-13] MEDS: VANCOMYCIN 750 MG in SOD CHLORIDE 0.9% 150 ML IVPB SCH (23:44)
[2018-04-14] VITALS (14 sets, daily range): BP systolic 106–124; BP diastolic 56–77; PULSE 72–222; RESP 17–20
[2018-04-14] MEDS: oxyCODONE 15 MG TAB PO PRN ×3 (06:24→20:20)
[2018-04-14] MEDS: PANTOPRAZOLE (EC) 40 MG TAB PO SCH ×2 (06:24→08:29)
--- NOTE | 2018-04-14 07:45 | PN ---
Date/Time of Note Date/Time of Note DATE: 04/14/18 TIME: 07:45 Assessment/Plan VTE Prophylaxis Risk score (from Nsg)>0 risk: 5 SCD applied (from Ns): No SCD contraindicated: bilateral amputee Pharmacological prophylaxis: apixaban Lines/Catheters IV [facility]from [facility] [place] Urinary Cath still in place: No Assessment/Plan Assessment/Plan 1. Acute infection in right thigh s/p amputation at [facility] - IR drained large amount of pus from right stump and sent for cultures. - Discussed case with vascular who is recommending patient return to [facility] for intervention on right stump given operation was performed there. - Spoke with Ortho about drainage of abscess and stated if not in bone or joint, would defer to General surgery. - General surgery consulted and requesting CTA. Would like to assess cause of abscess prior to any intervention - ID on board and appreciate recommendations. Will continue current antibiotics and await cultures from abscess - Pain management on board and appreciate consultation. - LE US negative for DVT. 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 Discussed with vascular, Dr. Rodríguez, who said it was chronic and will need to follow up with outpatient clinic at [facility] since RLE amputation was performed there. - PT/OT on board 2. leukocytosis- trending down - ID on board and appreciate recommendations 3. Acute on chronic systolic heart failure- resolved - Cardiology consultation appreciated. - Echo results noted from prior admission with EF 20% 4. Wounds on elbows and sacrum - wound consultation appreciated 5. CAD - continue all home medications - stable 6. b/l AKA secondary to PVD 7. Episode of sustained vtach- resolved - Cardiology on board and continues to adjust medications as needed 8. Disposition - Awaiting culture results from right stump abscess and CTA performed today Result Diagram: 04/14/18 0459 04/14/18 0459 Results 24hrs Laboratory Tests Test 04/14/18 04:59 White Blood Count 16.7 H Red Blood Count 4.70 Hemoglobin 11.1 L Hematocrit 34.0 L Mean Corpuscular Volume 72.3 L Mean Corpuscular Hemoglobin 23.6 L Mean Corpuscular Hemoglobin Concent 32.6 Red Cell Distribution Width 20.5 H Platelet Count 544 H Mean Platelet Volume 10.4 Immature Granulocytes % 1.000 H Neutrophils % 80.7 H Lymphocytes % 10.2 L Monocytes % 7.6 Eosinophils % 0.2 Basophils % 0.3 Nucleated Red Blood Cells % 0.0 Immature Granulocytes # 0.170 H Neutrophils # 13.4 H Lymphocytes # 1.7 Monocytes # 1.3 H Eosinophils # 0.0 Basophils # 0.1 Nucleated Red Blood Cells # 0.0 Sodium Level 137 Potassium Level 4.7 Chloride Level 98 Carbon Dioxide Level 27 Anion Gap 12 Blood Urea Nitrogen 18 Creatinine 0.81 Glucose Level 113 Calcium Level 9.5 Phosphorus Level 4.3 Magnesium Level 1.9 Albumin 3.5 Subjective 24 Hr Interval Summary Free Text/Dictation Patient states he's feeling better and pain more controlled on new dose of pain medication. Discussed need to await CT results to proceed with further plan of care. Exam/Review of Systems Vital Signs Vitals Vital Signs Date Temp Pulse Resp B/P (MAP) Pulse Ox O2 O2 Flow FiO2 Time Delivery Rate 04/14/18 105 04:00 04/14/18 98.9 17 107/59 97 03:25 (75) 04/13/18 21 20:08 04/13/18 Nasal 07:32 Cannula 04/10/18 2.0 14:15 Intake and Output 04/13/18 04/13/18 04/14/18 1515:00 23:00 07:00 IntakeIntake Total 50 ml 850 ml 700 ml OutputOutput Total 650 ml 2000 ml BalanceBalance 50 ml 200 ml -1300 ml Exam General: Patient is laying in bed and answers questions appropriately Neck: Supple Respiratory: Clear to auscultation bilaterally. no wheezing or rhonchi Cardiovascular: regular rate and rhythm, no obvious murmurs Gastrointestinal: soft, non-tender to palpation, nondistended. bowel sounds hear d. Neurological: Moves all extremities spontaneously Musculoskeletal: Bilateral AKA. nontender right stump with area of erythema posterior aspect, no discharge, drainage, or warmth appreciated. Medications Medications Current Medications Atorvastatin Calcium (Lipitor) 80 mg QHS PO Last administered on 04/13/18at 21:12; Admin Dose 80 MG; Start 03/28/18 at 21:00 Budesonide (Pulmicort (Neb)) 0.5 mg BID RESP THERAPY HHN Last administered on 04/13/18at 20:08; Admin Dose 0.5 MG; Start 03/28/18 at 20:00 Ferrous Gluconate (Fergon) 325 mg BID PO Last administered on 04/13/18 21:11; Admin Dose 325 MG; Start 03/28/18 at 21:00 Albuterol/ Ipratropium (Duoneb) 3 ml Q6HWA RESP THERAPY HHN Last administered on 04/13/18 20:07; Admin Dose 3 ML; Start 03/28/18 at 20:00 Montelukast Sodium (Singulair) 10 mg QHS PO Last administered on 04/13/18 21:11; Admin Dose 10 MG; Start 03/28/18 at 21:00 Pantoprazole (Protonix Tab) 40 mg DAILY@06 PO Last administered on 04/14/18 06:24; Admin Dose 40 MG; Start 03/29/18 at 06:00 Spironolactone (Aldactone) 25 mg DAILY PO Last administered on 04/13/18 08:19; Admin Dose 25 MG; Start 03/29/18 at 09:00 Tamsulosin HCl (Flomax) 0.4 mg HS PO Last administered on 04/13/18 21:12; Admin Dose 0.4 MG; Start 03/28/18 at 21:00 Tiotropium [place]ma (Spiriva) 1 inh DAILY INH Last administered on 04/13/18 09:46; Admin Dose 1 INH; Start 03/29/18 at 09:00 Albuterol (Proventil 0.083% (Neb)) 2.5 mg Q2H RESP THERAPY PRN HHN SHORTNESS OF BREATH Last administered on 04/06/18 19:39; Admin Dose 2.5 MG; Start 03/28/18 at 16:30 IV Flush (NS 3 ml) 3 ml PER PROTOCOL IV ; Start 03/28/18 at 16:30 Ondansetron HCl (Zofran Inj) 4 mg Q6H PRN IV NAUSEA AND/OR VOMITING; Start 03/28/18 at 16:30 Nitroglycerin (Nitroglycerin (Sl Tab) 0.4 Mg) 1 tab Q5M PRN SL CHEST PAIN; Start 03/28/18 at 16:30 Acetaminophen (Tylenol Tab) 650 mg Q6H PRN PO PAIN LEVEL 1-3 OR FEVER Last administered on 04/13/18 21:11; Admin Dose 650 MG; Start 03/28/18 at 16:30 Docusate Sodium (Colace) 100 mg Q12H PRN PO CONSTIPATION Last administered on 04/06/18 22:50; Admin Dose 100 MG; Start 03/28/18 at 16:30 Magnesium Hydroxide (Milk Of Mag) 30 ml DAILY PRN PO CONSTIPATION Last administered on 04/06/18 22:50; Admin Dose 30 ML; Start 03/28/18 at 16:30 Enoxaparin Sodium (Lovenox) 40 mg DAILY SC Last administered on 04/13/18 08:36; Admin Dose 40 MG; Start 03/29/18 at 09:00 Sacubitril/ Valsartan (Entresto 24 Mg-26 Mg) 1 tab BID PO Last administered on 04/13/18 21:11; Admin Dose 1 TAB; Start 03/28/18 at 21:00 Nystatin (Nystatin Powder) 1 applic BID TOP Last administered on 04/13/18 21:12; Admin Dose 1 APPLIC; Start 03/28/18 at 21:00 Cholecalciferol (Vitamin D) 2,000 unit BID PO Last administered on 04/13/18 21:11; Admin Dose 2,000 UNIT; Start 03/28/18 at 21:00 Miscellaneous Information (Pending [facility] Order For Wound Care) This patient rivera... PRN PRN XX soiled; Start 03/28/18 at 19:00 Senna/Docusate Sodium (Senokot-S) 2 tab DAILY PO Last administered on 04/13/18 08:20; Admin Dose 2 TAB; Start 03/30/18 at 09:00 Multivitamins Therapeutic (Theragran) 1 tab DAILY PO Last administered on 04/13/18 08:19; Admin Dose 1 TAB; Start 03/30/18 at 09:00 Gabapentin (Neurontin) 200 mg TID PO Last administered on 04/13/18 21:10; Admin Dose 200 MG; Start 03/30/18 at 13:00 Digoxin (Digoxin) 0.125 mg DAILY@13 PO Last administered on 04/13/18 12:23; Admin Dose 0.125 MG; Start 04/02/18 at 13:00 Oxycodone/ Acetaminophen (Percocet (5/ 325)) 1 tab Q4H PRN PO MODERATE PAIN LEVEL 4-6 Last administered on 04/13/18 23:45; Admin Dose 1 TAB; Start 04/02/18 at 14:00 Bisacodyl (Dulcolax) 5 mg DAILY PRN PO CONSTIPATION Last administered on 04/05/18 20:24; Admin Dose 5 MG; Start 04/02/18 at 18:30 Collagenase (Santyl) 1 applic DAILY TOP Last administered on 04/13/18 08:19; Admin Dose 1 APPLIC; Start 04/03/18 at 11:00 Vancomycin HCl (Vanco Iv Per Pharmacy) VANCOMYCIN PER PHARMACY PER PROTOCOL XX ; Start 04/04/18 at 17:30 Furosemide (Lasix) 40 mg DAILY PO Last administered on 04/13/18 08:37; Admin Dose 40 MG; Start 04/06/18 at 09:00 Vancomycin HCl 750 mg/Sodium Chloride 150 ml @ 75 mls/hr Q24H IVPB Last administered on 04/13/18 23:44; Admin Dose 75 MLS/HR; Start 04/05/18 at 23:00 Mupirocin (Bactroban) 1 applic BID TOP Last administered on 04/13/18 21:12; Admin Dose 1 APPLIC; Start 04/06/18 at 21:00 Cefepime HCl 50 ml @ 100 mls/hr Q12 IVPB Last administered on 04/13/18 21:12; Admin Dose 100 MLS/HR; Start 04/09/18 at 15:30 Metoprolol Succinate (Toprol Xl) 50 mg BID PO Last administered on 04/13/18 21:11; Admin Dose 50 MG; Start 04/13/18 at 21:00 Oxycodone HCl (Roxicodone) 30 mg Q6H PRN PO PAIN LEVEL 6-10 Last administered on 04/14/18 06:24; Admin Dose 30 MG; Start 04/13/18 at 16:00 SUSAN FAULKNER MD Apr 14, 2018 07:45
[2018-04-14] MEDS: BUDESONIDE (NEB) 0.5MG/2ML AMP HHN SCH ×2 (08:00→19:22)
[2018-04-14] MEDS ORDERED: MAGNESIUM SULFATE 2 GM/50 ML 50 ML IVPB ONE (08:00)
[2018-04-14] MEDS: ALBUTEROL/IPRATROPIUM (NEB) 3 ML AMP HHN SCH ×3 (08:00→19:22)
[2018-04-14] MEDS: SENNA/DOCUSATE NA (8.6MG/50MG) TAB PO SCH (08:28)
[2018-04-14] MEDS: CEFEPIME 1GM/50 ML (PMX) 50 ML IVPB SCH ×2 (08:28→20:28)
[2018-04-14] MEDS: COLLAGENASE 5 GM (UD JAR) TOP SCH (08:28)
[2018-04-14] MEDS: METOPROLOL (XL) 50 MG TAB PO SCH ×2 (08:29→20:30)
[2018-04-14] MEDS: TIOTROPIUM 18 MCG CAPSULE INHA DEV INH SCH (08:30)
[2018-04-14] MEDS: GABAPENTIN 100 MG CAP PO SCH ×3 (08:30→20:29)
[2018-04-14] MEDS: CHOLECALCIFEROL 2,000 UNIT CAP PO SCH ×2 (08:30→20:28)
[2018-04-14] MEDS: MULTIVITAMINS THERAPEUTIC TAB PO SCH (08:30)
[2018-04-14] MEDS: FUROSEMIDE 40 MG TAB PO SCH (08:30)
[2018-04-14] MEDS: SACUBITRIL/VALSARTAN (24mg-26mg) TABLET PO SCH ×2 (08:31→20:29)
[2018-04-14] MEDS: SPIRONOLACTONE 25 MG TAB PO SCH (08:31)
[2018-04-14] MEDS: FERROUS GLUCONATE (EC) 325 MG TAB PO SCH ×2 (08:31→20:28)
[2018-04-14] MEDS: NYSTATIN 30 GM POWDER BTL TOP SCH ×2 (08:34→20:31)
[2018-04-14] MEDS: MUPIROCIN 2% 22 GM OINT TOP SCH ×2 (08:34→20:30)
[2018-04-14] MEDS: ENOXAPARIN 40 MG/0.4 ML SYG SC SCH (08:36)
[2018-04-14] MEDS ORDERED: IOHEXOL 100 ML ONE (09:43)
[2018-04-14] MEDS ORDERED: SOD CHLORIDE 0.9% 100 ML ONE (09:43)
[2018-04-14] MEDS: OXYCODONE/ACETAMINOPHEN (5/325) TAB PO PRN ×2 (09:58→22:45)
--- NOTE | 2018-04-14 11:17 | CONS ---
Date/Time of Note Date/Time of Note DATE: 04/14/18 TIME: 11:16 Assessment/Plan Assessment/Plan Hospital Course ID PROGRESS NOTE CURRENT ABX: DAY # => Vanco IV + Cefepime 04/14/1845804/14/18458 24H INTERVAL SUMMARY * a/a/o VSS, NAD, no complaints * POD #1 --> s/p Satisfactory ultrasound-guided aspiration of right lower extremity fluid collection (STUMP). * 04/10/18 MRI RIGHT STUMP: Allowing for these limitations there appears to be soft tissue edema surrounding the femur from the mid thigh to the amputation site concerning for soft tissue infection.Question more focal appearing fluid collection at the amputation site which could represent an abscess versus seroma. MICRO * (+)MRSA * Urine Cx (+)CoNS * 04/12/18 Right Stump Needle Aspiration --> not received by [facility] I called them they are looking for the specimen? PHYSICAL EXAMINATION: GENERAL: Afebrile, VSS, HEENT: AT, NC, anicteric NECK: Supple, trach CHEST: Equal chest rise bilaterally, without dyspnea on observation HEART: Pulse RRR ABDOMEN: Soft / NT EXTREMITIES: BLEXT AKA Stumps -- see photos SKIN: No rash, no diaphoresis ID ASSESSMENT 62 yo M admit with: 1. s/p Sepsis on admission w/Fevers, tachycardia, leukocytosis due to #2 2. Persistent leukocytosis secondary to right lower extremity stump abscess 3. COPD 4. Substance abuse=> Urine tox (+)Opioids/(+)Cocaine 5. Multiple wounds and pressure sores 6. 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 CV DX: CAD, H/O CABG, H/O ME, s/p acute CHF decompensation 8. Diabetes w/ complication of peripheral neuropathy (+)MRSA Nares -> Bactroban ABX ALLERGIES: NKDA INVASIVES: PI CURRENT ABX: DAY ==Vanco IV + Cefepime s/p ID RECOMMENDATIONS/PLAN: Continue current ABX 04/12/18 Right Stump Needle Aspiration --> not received by [facility] I called them they are looking for the specimen? . . Result Diagram: 04/14/1845804/14/189 Results 24hrs Laboratory Tests Test 04/14/18 04:59 White Blood Count 16.7 H Red Blood Count 4.70 Hemoglobin 11.1 L Hematocrit 34.0 L Mean Corpuscular Volume 72.3 L Mean Corpuscular Hemoglobin 23.6 L Mean Corpuscular Hemoglobin Concent 32.6 Red Cell Distribution Width 20.5 H Platelet Count 544 H Mean Platelet Volume 10.4 Immature Granulocytes % 1.000 H Neutrophils % 80.7 H Lymphocytes % 10.2 L Monocytes % 7.6 Eosinophils % 0.2 Basophils % 0.3 Nucleated Red Blood Cells % 0.0 Immature Granulocytes # 0.170 H Neutrophils # 13.4 H Lymphocytes # 1.7 Monocytes # 1.3 H Eosinophils # 0.0 Basophils # 0.1 Nucleated Red Blood Cells # 0.0 Sodium Level 137 Potassium Level 4.7 Chloride Level 98 Carbon Dioxide Level 27 Anion Gap 12 Blood Urea Nitrogen 18 Creatinine 0.81 Glucose Level 113 Calcium Level 9.5 Phosphorus Level 4.3 Magnesium Level 1.9 Albumin 3.5 Consultation Date/Type/Reason Admit Date/Time Mar 29, 2018 at 07:48 Initial Consult Date Requesting Provider: SUSAN FAULKNER MD Exam/Review of Systems Vital Signs Vitals Vital Signs Date Temp Pulse Resp B/P (MAP) Pulse Ox O2 O2 Flow FiO2 Time Delivery Rate 04/14/18 105 08:52 04/14/18 20 98 21 08:10 04/14/18 98.0 122/61 Room Air 07:48 (81) 04/10/18 2.0 14:15 Intake and Output 04/13/18 04/13/18 04/14/18 1515:00 23:00 07:00 IntakeIntake Total 50 ml 850 ml 700 ml OutputOutput Total 650 ml 2000 ml BalanceBalance 50 ml 200 ml -1300 ml Medications Medications Current Medications Atorvastatin Calcium (Lipitor) 80 mg QHS PO Last administered on 04/13/18at 21:12; Admin Dose 80 MG; Start 03/28/18 at 21:00 Budesonide (Pulmicort (Neb)) 0.5 mg BID RESP THERAPY HHN Last administered on 04/14/18at 08:00; Admin Dose 0.5 MG; Start 03/28/18 at 20:00 Ferrous Gluconate (Fergon) 325 mg BID PO Last administered on 04/14/18 08:31; Admin Dose 325 MG; Start 03/28/18 at 21:00 Albuterol/ Ipratropium (Duoneb) 3 ml Q6HWA RESP THERAPY HHN Last administered on 04/14/18 08:00; Admin Dose 3 ML; Start 03/28/18 at 20:00 Montelukast Sodium (Singulair) 10 mg QHS PO Last administered on 04/13/18 21:11; Admin Dose 10 MG; Start 03/28/18 at 21:00 Pantoprazole (Protonix Tab) 40 mg DAILY@06 PO Last administered on 04/14/18 08:29; Admin Dose 40 MG; Start 03/29/18 at 06:00 Spironolactone (Aldactone) 25 mg DAILY PO Last administered on 04/14/18 08:31; Admin Dose 25 MG; Start 03/29/18 at 09:00 Tamsulosin HCl (Flomax) 0.4 mg HS PO Last administered on 04/13/18 21:12; Admin Dose 0.4 MG; Start 03/28/18 at 21:00 Tiotropium [place] (Spiriva) 1 inh DAILY INH Last administered on 04/14/18 08:30; Admin Dose 1 INH; Start 03/29/18 at 09:00 Albuterol (Proventil 0.083% (Neb)) 2.5 mg Q2H RESP THERAPY PRN HHN SHORTNESS OF BREATH Last administered on 04/06/18at 19:39; Admin Dose 2.5 MG; Start 03/28/18 at 16:30 IV Flush (NS 3 ml) 3 ml PER PROTOCOL IV ; Start 03/28/18 at 16:30 Ondansetron HCl (Zofran Inj) 4 mg Q6H PRN IV NAUSEA AND/OR VOMITING; Start 03/28/18 at 16:30 Nitroglycerin (Nitroglycerin (Sl Tab) 0.4 Mg) 1 tab Q5M PRN SL CHEST PAIN; Start 03/28/18 at 16:30 Acetaminophen (Tylenol Tab) 650 mg Q6H PRN PO PAIN LEVEL 1-3 OR FEVER Last administered on 04/13/18 21:11; Admin Dose 650 MG; Start 03/28/18 at 16:30 Docusate Sodium (Colace) 100 mg Q12H PRN PO CONSTIPATION Last administered on 04/06/18 22:50; Admin Dose 100 MG; Start 03/28/18 at 16:30 Magnesium Hydroxide (Milk Of Mag) 30 ml DAILY PRN PO CONSTIPATION Last administered on 04/06/18 22:50; Admin Dose 30 ML; Start 03/28/18 at 16:30 Enoxaparin Sodium (Lovenox) 40 mg DAILY SC Last administered on 04/14/18 08:36; Admin Dose 40 MG; Start 03/29/18 at 09:00 Sacubitril/ Valsartan (Entresto 24 Mg-26 Mg) 1 tab BID PO Last administered on 04/14/18 08:31; Admin Dose 1 TAB; Start 03/28/18 at 21:00 Nystatin (Nystatin Powder) 1 applic BID TOP Last administered on 04/14/18 08:34; Admin Dose 1 APPLIC; Start 03/28/18 at 21:00 Cholecalciferol (Vitamin D) 2,000 unit BID PO Last administered on 04/14/18 08:30; Admin Dose 2,000 UNIT; Start 03/28/18 at 21:00 Miscellaneous Information (Pending [facility] Order For Wound Care) This patient rivera... PRN PRN XX soiled; Start 03/28/18 at 19:00 Senna/Docusate Sodium (Senokot-S) 2 tab DAILY PO Last administered on 04/14/18 08:28; Admin Dose 2 TAB; Start 03/30/18 at 09:00 Multivitamins Therapeutic (Theragran) 1 tab DAILY PO Last administered on 04/14/18 08:30; Admin Dose 1 TAB; Start 03/30/18 at 09:00 Gabapentin (Neurontin) 200 mg TID PO Last administered on 04/14/18 08:30; Admin Dose 200 MG; Start 03/30/18 at 13:00 Digoxin (Digoxin) 0.125 mg DAILY@13 PO Last administered on 04/13/18 12:23; Admin Dose 0.125 MG; Start 04/02/18 at 13:00 Oxycodone/ Acetaminophen (Percocet (5/ 325)) 1 tab Q4H PRN PO MODERATE PAIN LEVEL 4-6 Last administered on 04/14/18 09:58; Admin Dose 1 TAB; Start 04/02/18 at 14:00 Bisacodyl (Dulcolax) 5 mg DAILY PRN PO CONSTIPATION Last administered on 04/05/18 20:24; Admin Dose 5 MG; Start 04/02/18 at 18:30 Collagenase (Santyl) 1 applic DAILY TOP Last administered on 04/14/18 08:28; Admin Dose 1 APPLIC; Start 04/03/18 at 11:00 Vancomycin HCl (Vanco Iv Per Pharmacy) VANCOMYCIN PER PHARMACY PER PROTOCOL XX ; Start 04/04/18 at 17:30 Furosemide (Lasix) 40 mg DAILY PO Last administered on 04/14/18 08:30; Admin Dose 40 MG; Start 04/06/18 at 09:00 Vancomycin HCl 750 mg/Sodium Chloride 150 ml @ 75 mls/hr Q24H IVPB Last administered on 04/13/18 23:44; Admin Dose 75 MLS/HR; Start 04/05/18 at 23:00 Mupirocin (Bactroban) 1 applic BID TOP Last administered on 04/14/18 08:34; Admin Dose 1 APPLIC; Start 04/06/18 at 21:00 Cefepime HCl 50 ml @ 100 mls/hr Q12 IVPB Last administered on 04/14/18 08:28 ; Admin Dose 100 MLS/HR; Start 04/09/18 at 15:30 Metoprolol Succinate (Toprol Xl) 50 mg BID PO Last administered on 04/14/18 08:29; Admin Dose 50 MG; Start 04/13/18 at 21:00 Oxycodone HCl (Roxicodone) 30 mg Q6H PRN PO PAIN LEVEL 6-10 Last administered on 04/14/18 06:24; Admin Dose 30 MG; Start 04/13/18 at 16:00 MERCEDES KEARNEY NP Apr 14, 2018 11:17
[2018-04-14] MEDS: DIGOXIN 0.125 MG TAB PO SCH (13:35)
--- NOTE | 2018-04-14 14:52 | CONS ---
Date/Time of Note Date/Time of Note DATE: 04/14/18 TIME: 14:49 Assessment/Plan Assessment/Plan Hospital Course IMPRESSION: 1. Congestive heart failure exacerbation, systolic, acute on chronic. 2. Cardiomyopathy with severely depressed left ventricular ejection fraction with last being approximately 20%. 3. Hypertension. 4. Dyslipidemia. 5. History of substance abuse. 6. Chronic obstructive pulmonary disease. 7. Bilateral lower extremity amputation and presenting with right stump pain.- s/p IR guidede drainage of collection seen by LE CT 8. Questionable history of intracardiac thrombus not seen by most recent echocardiogram dated 01/06/2018, but with severely depressed ejection fraction at that time of 20%. 9. Tobacco intake. 10. SVT-regular recurrent to 160-180. Broke with PO BB. Also questionable WCT right before. Had recurrent SVT o/n 04/01.Slowly improving S tach Recc: -Tele -Continue entresto/BB -Continue aldactone -Continue lasix daily -Continue bronchodilators/abx's and f/u cx data -Continue po digoxin -pain control Result Diagram: 04/14/18 0459 04/14/18 0459 Results 24hrs Laboratory Tests Test 04/14/18 04:59 White Blood Count 16.7 H Red Blood Count 4.70 Hemoglobin 11.1 L Hematocrit 34.0 L Mean Corpuscular Volume 72.3 L Mean Corpuscular Hemoglobin 23.6 L Mean Corpuscular Hemoglobin Concent 32.6 Red Cell Distribution Width 20.5 H Platelet Count 544 H Mean Platelet Volume 10.4 Immature Granulocytes % 1.000 H Neutrophils % 80.7 H Lymphocytes % 10.2 L Monocytes % 7.6 Eosinophils % 0.2 Basophils % 0.3 Nucleated Red Blood Cells % 0.0 Immature Granulocytes # 0.170 H Neutrophils # 13.4 H Lymphocytes # 1.7 Monocytes # 1.3 H Eosinophils # 0.0 Basophils # 0.1 Nucleated Red Blood Cells # 0.0 Sodium Level 137 Potassium Level 4.7 Chloride Level 98 Carbon Dioxide Level 27 Anion Gap 12 Blood Urea Nitrogen 18 Creatinine 0.81 Glucose Level 113 Calcium Level 9.5 Phosphorus Level 4.3 Magnesium Level 1.9 Albumin 3.5 Consultation Date/Type/Reason Admit Date/Time Mar 29, 2018 at 07:48 Initial Consult Date 03/29/18 Type of Consult cardiology Reason for Consultation CHF Requesting Provider: SUSAN FAULKNER MD Exam/Review of Systems Vital Signs Vitals Vital Signs Date Temp Pulse Resp B/P (MAP) Pulse Ox O2 O2 Flow FiO2 Time Delivery Rate 04/14/18 94 12:51 04/14/18 98.0 20 124/77 93 Room Air 11:39 (93) 04/14/18 21 08:10 04/10/18 2.0 14:15 Intake and Output 04/13/18 04/13/18 04/14/18 1515:00 23:00 07:00 IntakeIntake Total 50 ml 850 ml 700 ml OutputOutput Total 650 ml 2000 ml BalanceBalance 50 ml 200 ml -1300 ml Exam Review of Systems: CONSTITUTIONAL: No fevers, chills. PULMONARY: No sob CARDIOVASCULAR: No chest pain/palpitations GASTROINTESTINAL: No nausea/vomiting. GENITOURINARY: No hematuria/dysuria. MUSCULOSKELETAL: No myagias/arthalgias. PSYCHIATRIC: The patient denies depression. NEUROLOGIC: No weakness Constitutional: alert Psych: no complaints Head: normocephalic ENMT: mucosa pink and moist Neck: supple, jvd (9 cm water) Respiratory: diminished breath sounds (at bases/B) Cardiovascular: regular rate and rhythm Gastrointestinal: soft, non-tender Musculoskeletal: muscle tone (normal) Extremities: other (bilateral LE amputtaion) Neurological: other (No focal deficits) Medications Medications Current Medications Atorvastatin Calcium (Lipitor) 80 mg QHS PO Last administered on 04/13/18at 21:12; Admin Dose 80 MG; Start 03/28/18 at 21:00 Budesonide (Pulmicort (Neb)) 0.5 mg BID RESP THERAPY HHN Last administered on 04/14/18at 08:00; Admin Dose 0.5 MG; Start 03/28/18 at 20:00 Ferrous Gluconate (Fergon) 325 mg BID PO Last administered on 04/14/18at 08:31; Admin Dose 325 MG; Start 03/28/18 at 21:00 Albuterol/ Ipratropium (Duoneb) 3 ml Q6HWA RESP THERAPY HHN Last administered on 04/14/18at 08:00; Admin Dose 3 ML; Start 03/28/18 at 20:00 Montelukast Sodium (Singulair) 10 mg QHS PO Last administered on 04/13/18 21:11; Admin Dose 10 MG; Start 03/28/18 at 21:00 Pantoprazole (Protonix Tab) 40 mg DAILY@06 PO Last administered on 04/14/18 08:29; Admin Dose 40 MG; Start 03/29/18 at 06:00 Spironolactone (Aldactone) 25 mg DAILY PO Last administered on 04/14/18 08:31; Admin Dose 25 MG; Start 03/29/18 at 09:00 Tamsulosin HCl (Flomax) 0.4 mg HS PO Last administered on 04/13/18 21:12; Admin Dose 0.4 MG; Start 03/28/18 at 21:00 Tiotropium [place] (Spiriva) 1 inh DAILY INH Last administered on 04/14/18 08:30; Admin Dose 1 INH; Start 03/29/18 at 09:00 Albuterol (Proventil 0.083% (Neb)) 2.5 mg Q2H RESP THERAPY PRN HHN SHORTNESS OF BREATH Last administered on 04/06/18at 19:39; Admin Dose 2.5 MG; Start 03/28/18 at 16:30 IV Flush (NS 3 ml) 3 ml PER PROTOCOL IV ; Start 03/28/18 at 16:30 Ondansetron HCl (Zofran Inj) 4 mg Q6H PRN IV NAUSEA AND/OR VOMITING; Start 03/28/18 at 16:30 Nitroglycerin (Nitroglycerin (Sl Tab) 0.4 Mg) 1 tab Q5M PRN SL CHEST PAIN; Start 03/28/18 at 16:30 Acetaminophen (Tylenol Tab) 650 mg Q6H PRN PO PAIN LEVEL 1-3 OR FEVER Last administered on 04/13/18 21:11; Admin Dose 650 MG; Start 03/28/18 at 16:30 Docusate Sodium (Colace) 100 mg Q12H PRN PO CONSTIPATION Last administered on 04/06/18 22:50; Admin Dose 100 MG; Start 03/28/18 at 16:30 Magnesium Hydroxide (Milk Of Mag) 30 ml DAILY PRN PO CONSTIPATION Last administered on 04/06/18 22:50; Admin Dose 30 ML; Start 03/28/18 at 16:30 Enoxaparin Sodium (Lovenox) 40 mg DAILY SC Last administered on 04/14/18 08:36; Admin Dose 40 MG; Start 03/29/18 at 09:00 Sacubitril/ Valsartan (Entresto 24 Mg-26 Mg) 1 tab BID PO Last administered on 04/14/18 08:31; Admin Dose 1 TAB; Start 03/28/18 at 21:00 Nystatin (Nystatin Powder) 1 applic BID TOP Last administered on 04/14/18 08:34; Admin Dose 1 APPLIC; Start 03/28/18 at 21:00 Cholecalciferol (Vitamin D) 2,000 unit BID PO Last administered on 04/14/18 08:30; Admin Dose 2,000 UNIT; Start 03/28/18 at 21:00 Miscellaneous Information (Pending Santyl Order For Wound Care) This patient rivera... PRN PRN XX soiled; Start 03/28/18 at 19:00 Senna/Docusate Sodium (Senokot-S) 2 tab DAILY PO Last administered on 04/14/18 08:28; Admin Dose 2 TAB; Start 03/30/18 at 09:00 Multivitamins Therapeutic (Theragran) 1 tab DAILY PO Last administered on 04/14/18 08:30; Admin Dose 1 TAB; Start 03/30/18 at 09:00 Gabapentin (Neurontin) 200 mg TID PO Last administered on 04/14/18 13:33; Admin Dose 200 MG; Start 03/30/18 at 13:00 Digoxin (Digoxin) 0.125 mg DAILY@13 PO Last administered on 04/14/18 13:35; Admin Dose 0.125 MG; Start 04/02/18 at 13:00 Oxycodone/ Acetaminophen (Percocet (5/ 325)) 1 tab Q4H PRN PO MODERATE PAIN LEVEL 4-6 Last administered on 04/14/18 09:58; Admin Dose 1 TAB; Start 04/02/18 at 14:00 Bisacodyl (Dulcolax) 5 mg DAILY PRN PO CONSTIPATION Last administered on 04/05/18 20:24; Admin Dose 5 MG; Start 04/02/18 at 18:30 Collagenase (Santyl) 1 applic DAILY TOP Last administered on 04/14/18 08:28; Admin Dose 1 APPLIC; Start 04/03/18 at 11:00 Vancomycin HCl (Vanco Iv Per Pharmacy) VANCOMYCIN PER PHARMACY PER PROTOCOL XX ; Start 04/04/18 at 17:30 Furosemide (Lasix) 40 mg DAILY PO Last administered on 04/14/18 08:30; Admin Dose 40 MG; Start 04/06/18 at 09:00 Vancomycin HCl 750 mg/Sodium Chloride 150 ml @ 75 mls/hr Q24H IVPB Last administered on 04/13/18at 23:44; Admin Dose 75 MLS/HR; Start 04/05/18 at 23:00 Mupirocin (Bactroban) 1 applic BID TOP Last administered on 04/14/18 08:34; Admin Dose 1 APPLIC; Start 04/06/18 at 21:00 Cefepime HCl 50 ml @ 100 mls/hr Q12 IVPB Last administered on 04/14/18 08:28; Admin Dose 100 MLS/HR; Start 04/09/18 at 15:30 Metoprolol Succinate (Toprol Xl) 50 mg BID PO Last administered on 04/14/18 08:29; Admin Dose 50 MG; Start 04/13/18 at 21:00 Oxycodone HCl (Roxicodone) 30 mg Q6H PRN PO PAIN LEVEL 6-10 Last administered on 04/14/18 13:34; Admin Dose 30 MG; Start 04/13/18 at 16:00 VIVIAN PRINCE Apr 14, 2018 14:52
[2018-04-14] MEDS: ATORVASTATIN 80 MG TAB PO SCH (20:28)
[2018-04-14] MEDS: MONTELUKAST 10 MG TAB PO SCH (20:28)
[2018-04-14] MEDS: TAMSULOSIN (SR) 0.4 MG CAP PO SCH (20:29)
[2018-04-14] MEDS: VANCOMYCIN 750 MG in SOD CHLORIDE 0.9% 150 ML IVPB SCH (22:46)
[2018-04-15] VITALS (15 sets, daily range): BP systolic 104–193; BP diastolic 55–80; PULSE 71–192; RESP 16–19
[2018-04-15] MEDS: oxyCODONE 15 MG TAB PO PRN ×2 (07:28→15:26)
[2018-04-15] MEDS: ALBUTEROL/IPRATROPIUM (NEB) 3 ML AMP HHN SCH ×3 (08:04→19:45)
[2018-04-15] MEDS: BUDESONIDE (NEB) 0.5MG/2ML AMP HHN SCH ×2 (08:04→19:45)
--- NOTE | 2018-04-15 08:23 | PN ---
Date/Time of Note Date/Time of Note DATE: 04/15/18 TIME: 08:23 Assessment/Plan VTE Prophylaxis Risk score (from Nsg)>0 risk: 9 SCD applied (from Ns): No SCD contraindicated: bilateral amputee Pharmacological prophylaxis: apixaban Lines/Catheters IV Catheter Type (from [facility] Saline Lock Urinary Cath still in place: No Assessment/Plan Assessment/Plan 1. Acute infection in right thigh s/p amputation at [facility] - IR drained large amount of pus from right stump and sent for cultures. Awaiting results - Discussed case with vascular who is recommending patient return to [facility] for intervention on right stump given operation was performed there. - Spoke with Ortho about drainage of abscess and stated if not in bone or joint, would defer to General surgery. - General surgery consulted and requested CTA. CTA resulted with no findings that differ from previous imaging studies - ID on board and appreciate recommendations. Will continue current antibiotics and await cultures from abscess - Pain management on board and appreciate consultation. - LE US negative for DVT. 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 Discussed with vascular, Dr. Rodríguez, who said it was chronic and will need to follow up with outpatient clinic at [facility] since RLE amputation was performed there. - PT/OT on board 2. leukocytosis- trending down - ID on board and appreciate recommendations 3. Acute on chronic systolic heart failure- resolved - Cardiology consultation appreciated. - Echo results noted from prior admission with EF 20% 4. Wounds on elbows and sacrum - wound consultation appreciated 5. CAD - continue all home medications - stable 6. b/l AKA secondary to PVD 7. Episode of sustained vtach - patient has recurrence this am of vtach for 4 and 7 sec. - Cardiology on board and continues to adjust medications as needed 8. Disposition - Awaiting cultures from right stump aspiration - Cardiology on board for management of patients recurrence of Vtach - No SNF accepting and will need HHPT when ready for d/c Result Diagram: 04/15/18 0456 04/15/18 0456 Results 24hrs Laboratory Tests Test 04/15/18 04:56 White Blood Count 16.7 H Red Blood Count 4.82 Hemoglobin 11.3 L Hematocrit 35.4 L Mean Corpuscular Volume 73.4 L Mean Corpuscular Hemoglobin 23.4 L Mean Corpuscular Hemoglobin Concent 31.9 L Red Cell Distribution Width 20.9 H Platelet Count 527 H Mean Platelet Volume 10.4 Immature Granulocytes % 0.900 H Neutrophils % 79.1 H Lymphocytes % 10.1 L Monocytes % 9.1 Eosinophils % 0.5 Basophils % 0.3 Nucleated Red Blood Cells % 0.0 Immature Granulocytes # 0.150 H Neutrophils # 13.2 H Lymphocytes # 1.7 Monocytes # 1.5 H Eosinophils # 0.1 Basophils # 0.1 Nucleated Red Blood Cells # 0.0 Sodium Level 136 Potassium Level 4.9 Chloride Level 99 Carbon Dioxide Level 31 Anion Gap 6 Blood Urea Nitrogen 19 Creatinine 0.85 Glucose Level 102 Calcium Level 9.4 Phosphorus Level 4.4 Magnesium Level 2.2 Albumin 3.5 Subjective 24 Hr Interval Summary Free Text/Dictation Patient states he's feeling better and pain is better controlled. Patient had episode of Vtach this am, 7 sec and 4 sec. Patient was asymptomatic. Exam/Review of Systems Vital Signs Vitals Vital Signs Date Temp Pulse Resp B/P (MAP) Pulse Ox O2 O2 Flow FiO2 Time Delivery Rate 04/15/18 98.2 74 16 104/58 93 07:59 (73) 04/15/18 21 07:56 04/14/18 Room Air 16:02 Intake and Output 04/14/18 04/14/18 04/15/18 1515:00 23:00 07:00 IntakeIntake Total 750 ml 650 ml OutputOutput Total 1100 ml 1200 ml BalanceBalance -350 ml -550 ml Exam General: Patient is laying in bed and answers questions appropriately Neck: Supple Respiratory: Clear to auscultation bilaterally. no wheezing or rhonchi Cardiovascular: regular rate and rhythm, no obvious murmurs Gastrointestinal: soft, non-tender to palpation, nondistended. bowel sounds heard. Neurological: Moves all extremities spontaneously Musculoskeletal: Bilateral AKA. nontender right stump. no discharge, drainage, or warmth appreciated. Medications Medications Current Medications Atorvastatin Calcium (Lipitor) 80 mg QHS PO Last administered on 04/14/18at 20:28; Admin Dose 80 MG; Start 03/28/18 at 21:00 Budesonide (Pulmicort (Neb)) 0.5 mg BID RESP THERAPY HHN Last administered on 04/15/18at 08:04; Admin Dose 0.5 MG; Start 03/28/18 at 20:00 Ferrous Gluconate (Fergon) 325 mg BID PO Last administered on 04/14/18 20:28; Admin Dose 325 MG; Start 03/28/18 at 21:00 Albuterol/ Ipratropium (Duoneb) 3 ml Q6HWA RESP THERAPY HHN Last administered on 04/15/18 08:04; Admin Dose 3 ML; Start 03/28/18 at 20:00 Montelukast Sodium (Singulair) 10 mg QHS PO Last administered on 04/14/18 20:28; Admin Dose 10 MG; Start 03/28/18 at 21:00 Pantoprazole (Protonix Tab) 40 mg DAILY@06 PO Last administered on 04/14/18 08:29; Admin Dose 40 MG; Start 03/29/18 at 06:00 Spironolactone (Aldactone) 25 mg DAILY PO Last administered on 04/14/18 08:31; Admin Dose 25 MG; Start 03/29/18 at 09:00 Tamsulosin HCl (Flomax) 0.4 mg HS PO Last administered on 04/14/18 20:29; Admin Dose 0.4 MG; Start 03/28/18 at 21:00 Tiotropium [place] (Spiriva) 1 inh DAILY INH Last administered on 04/14/18 08:30; Admin Dose 1 INH; Start 03/29/18 at 09:00 Albuterol (Proventil 0.083% (Neb)) 2.5 mg Q2H RESP THERAPY PRN HHN SHORTNESS OF BREATH Last administered on 04/06/18 19:39; Admin Dose 2.5 MG; Start 03/28/18 at 16:30 IV Flush (NS 3 ml) 3 ml PER PROTOCOL IV ; Start 03/28/18 at 16:30 Ondansetron HCl (Zofran Inj) 4 mg Q6H PRN IV NAUSEA AND/OR VOMITING; Start 03/28/18 at 16:30 Nitroglycerin (Nitroglycerin (Sl Tab) 0.4 Mg) 1 tab Q5M PRN SL CHEST PAIN; Start 03/28/18 at 16:30 Acetaminophen (Tylenol Tab) 650 mg Q6H PRN PO PAIN LEVEL 1-3 OR FEVER Last administered on 04/13/18 21:11; Admin Dose 650 MG; Start 03/28/18 at 16:30 Docusate Sodium (Colace) 100 mg Q12H PRN PO CONSTIPATION Last administered on 04/06/18 22:50; Admin Dose 100 MG; Start 03/28/18 at 16:30 Magnesium Hydroxide (Milk Of Mag) 30 ml DAILY PRN PO CONSTIPATION Last administered on 04/06/18 22:50; Admin Dose 30 ML; Start 03/28/18 at 16:30 Enoxaparin Sodium (Lovenox) 40 mg DAILY SC Last administered on 04/14/18 08:36; Admin Dose 40 MG; Start 03/29/18 at 09:00 Sacubitril/ Valsartan (Entresto 24 Mg-26 Mg) 1 tab BID PO Last administered on 04/14/18 20:29; Admin Dose 1 TAB; Start 03/28/18 at 21:00 Nystatin (Nystatin Powder) 1 applic BID TOP Last administered on 04/14/18 20:31; Admin Dose 1 APPLIC; Start 03/28/18 at 21:00 Cholecalciferol (Vitamin D) 2,000 unit BID PO Last administered on 04/14/18 20:28; Admin Dose 2,000 UNIT; Start 03/28/18 at 21:00 Miscellaneous Information (Pending [facility] Order For Wound Care) This patient rivera... PRN PRN XX soiled; Start 03/28/18 at 19:00 Senna/Docusate Sodium (Senokot-S) 2 tab DAILY PO Last administered on 04/14/18 08:28; Admin Dose 2 TAB; Start 03/30/18 at 09:00 Multivitamins Therapeutic (Theragran) 1 tab DAILY PO Last administered on 04/14/18 08:30; Admin Dose 1 TAB; Start 03/30/18 at 09:00 Gabapentin (Neurontin) 200 mg TID PO Last administered on 04/14/18 20:29; Admin Dose 200 MG; Start 03/30/18 at 13:00 Digoxin (Digoxin) 0.125 mg DAILY@13 PO Last administered on 04/14/18 13:35; Admin Dose 0.125 MG; Start 04/02/18 at 13:00 Oxycodone/ Acetaminophen (Percocet (5/ 325)) 1 tab Q4H PRN PO MODERATE PAIN LEVEL 4-6 Last administered on 04/14/18 22:45; Admin Dose 1 TAB; Start 04/02/18 at 14:00 Bisacodyl (Dulcolax) 5 mg DAILY PRN PO CONSTIPATION Last administered on 04/05/18 20:24; Admin Dose 5 MG; Start 04/02/18 at 18:30 Collagenase (Santyl) 1 applic DAILY TOP Last administered on 04/14/18 08:28; Admin Dose 1 APPLIC; Start 04/03/18 at 11:00 Vancomycin HCl (Vanco Iv Per Pharmacy) VANCOMYCIN PER PHARMACY PER PROTOCOL XX ; Start 04/04/18 at 17:30 Furosemide (Lasix) 40 mg DAILY PO Last administered on 04/14/18 08:30; Admin Dose 40 MG; Start 04/06/18 at 09:00 Vancomycin HCl 750 mg/Sodium Chloride 150 ml @ 75 mls/hr Q24H IVPB Last administered on 04/14/18 22:46; Admin Dose 75 MLS/HR; Start 04/05/18 at 23:00 Mupirocin (Bactroban) 1 applic BID TOP Last administered on 04/14/18 20:30; Admin Dose 1 APPLIC; Start 04/06/18 at 21:00 Cefepime HCl 50 ml @ 100 mls/hr Q12 IVPB Last administered on 04/14/18 20:28; Admin Dose 100 MLS/HR; Start 04/09/18 at 15:30 Metoprolol Succinate (Toprol Xl) 50 mg BID PO Last administered on 04/14/18 20:30; Admin Dose 50 MG; Start 04/13/18 at 21:00 Oxycodone HCl (Roxicodone) 30 mg Q6H PRN PO PAIN LEVEL 6-10 Last administered on 04/15/18 07:28; Admin Dose 30 MG; Start 04/13/18 at 16:00 SUSAN FAULKNER MD Apr 15, 2018 08:23
[2018-04-15] MEDS: CHOLECALCIFEROL 2,000 UNIT CAP PO SCH ×2 (08:48→21:37)
[2018-04-15] MEDS: SACUBITRIL/VALSARTAN (24mg-26mg) TABLET PO SCH ×2 (08:49→21:37)
[2018-04-15] MEDS: SENNA/DOCUSATE NA (8.6MG/50MG) TAB PO SCH (08:49)
[2018-04-15] MEDS: SPIRONOLACTONE 25 MG TAB PO SCH (08:50)
[2018-04-15] MEDS: FERROUS GLUCONATE (EC) 325 MG TAB PO SCH ×2 (08:51→21:35)
[2018-04-15] MEDS: FUROSEMIDE 40 MG TAB PO SCH (08:52)
[2018-04-15] MEDS: TIOTROPIUM 18 MCG CAPSULE INHA DEV INH SCH (08:52)
[2018-04-15] MEDS: COLLAGENASE 5 GM (UD JAR) TOP SCH (08:53)
[2018-04-15] MEDS: MUPIROCIN 2% 22 GM OINT TOP SCH ×2 (08:53→21:38)
[2018-04-15] MEDS: NYSTATIN 30 GM POWDER BTL TOP SCH ×2 (08:53→21:38)
[2018-04-15] MEDS: ENOXAPARIN 40 MG/0.4 ML SYG SC SCH (09:00)
[2018-04-15] MEDS: GABAPENTIN 100 MG CAP PO SCH ×3 (09:04→21:34)
[2018-04-15] MEDS: MULTIVITAMINS THERAPEUTIC TAB PO SCH (09:04)
[2018-04-15] MEDS: CEFEPIME 1GM/50 ML (PMX) 50 ML IVPB SCH ×2 (10:46→21:34)
[2018-04-15] MEDS: OXYCODONE/ACETAMINOPHEN (5/325) TAB PO PRN (10:49)
[2018-04-15] MEDS: METOPROLOL (XL) 50 MG TAB PO SCH ×2 (11:55→21:37)
--- NOTE | 2018-04-15 13:20 | CONS ---
Date/Time of Note Date/Time of Note DATE: 04/15/18 TIME: :18 Assessment/Plan Assessment/Plan Hospital Course IMPRESSION: 1. Congestive heart failure exacerbation, systolic, acute on chronic. 2. Cardiomyopathy with severely depressed left ventricular ejection fraction with last being approximately 20%. 3. Hypertension. 4. Dyslipidemia. 5. History of substance abuse. 6. Chronic obstructive pulmonary disease. 7. Bilateral lower extremity amputation and presenting with right stump pain.- s/p IR guidede drainage of collection seen by LE CT 8. Questionable history of intracardiac thrombus not seen by most recent echocardiogram dated 01/06/2018, but with severely depressed ejection fraction at that time of 20%. 9. Tobacco intake. 10. SVT-regular recurrent to 160-180. Broke with PO BB. Also questionable WCT right before. Had recurrent SVT o/n 04/01.Slowly improving S tach Recc: -Tele -Continue entresto/BB -Continue aldactone -Continue lasix daily -Continue bronchodilators/abx's and f/u cx data -Continue po digoxin -pain control Result Diagram: 04/15/18 0456 04/15/18 0456 Results 24hrs Laboratory Tests Test 04/15/18 04:56 White Blood Count 16.7 H Red Blood Count 4.82 Hemoglobin 11.3 L Hematocrit 35.4 L Mean Corpuscular Volume 73.4 L Mean Corpuscular Hemoglobin 23.4 L Mean Corpuscular Hemoglobin Concent 31.9 L Red Cell Distribution Width 20.9 H Platelet Count 527 H Mean Platelet Volume 10.4 Immature Granulocytes % 0.900 H Neutrophils % 79.1 H Lymphocytes % 10.1 L Monocytes % 9.1 Eosinophils % 0.5 Basophils % 0.3 Nucleated Red Blood Cells % 0.0 Immature Granulocytes # 0.150 H Neutrophils # 13.2 H Lymphocytes # 1.7 Monocytes # 1.5 H Eosinophils # 0.1 Basophils # 0.1 Nucleated Red Blood Cells # 0.0 Sodium Level 136 Potassium Level 4.9 Chloride Level 99 Carbon Dioxide Level 31 Anion Gap 6 Blood Urea Nitrogen 19 Creatinine 0.85 Glucose Level 102 Calcium Level 9.4 Phosphorus Level 4.4 Magnesium Level 2.2 Albumin 3.5 Consultation Date/Type/Reason Admit Date/Time Mar 29, 2018 at 07:48 Initial Consult Date 03/29/18 Type of Consult cardiology Reason for Consultation CHF Requesting Provider: SUSAN FAULKNER MD Exam/Review of Systems Vital Signs Vitals Vital Signs Date Temp Pulse Resp B/P (MAP) Pulse Ox O2 O2 Flow FiO2 Time Delivery Rate 04/15/18 94 16 97 21 13:14 04/15/18 98.9 111/79 11:03 (90) 04/14/18 Room Air 16:02 Intake and Output 04/14/18 04/14/18 04/15/18 1515:00 23:00 07:00 IntakeIntake Total 750 ml 650 ml OutputOutput Total 1100 ml 1200 ml BalanceBalance -350 ml -550 ml Exam Review of Systems: CONSTITUTIONAL: No fevers, chills. PULMONARY: No sob CARDIOVASCULAR: No chest pain/palpitations GASTROINTESTINAL: No nausea/vomiting. GENITOURINARY: No hematuria/dysuria. MUSCULOSKELETAL: No myagias/arthalgias. PSYCHIATRIC: The patient denies depression. NEUROLOGIC: No weakness Constitutional: alert Head: normocephalic ENMT: mucosa pink and moist Neck: supple, jvd (9 cm water) Respiratory: diminished breath sounds Cardiovascular: regular rate and rhythm Gastrointestinal: soft, non-tender Musculoskeletal: muscle tone (normal) Extremities: other (bilateral LE amputtaion) Neurological: other (No focal deficits) Medications Medications Current Medications Atorvastatin Calcium (Lipitor) 80 mg QHS PO Last administered on 04/14/18at 20:28; Admin Dose 80 MG; Start 03/28/18 at 21:00 Budesonide (Pulmicort (Neb)) 0.5 mg BID RESP THERAPY HHN Last administered on 04/15/18at 08:04; Admin Dose 0.5 MG; Start 03/28/18 at 20:00 Ferrous Gluconate (Fergon) 325 mg BID PO Last administered on 04/15/18at 08:51; Admin Dose 325 MG; Start 03/28/18 at 21:00 Albuterol/ Ipratropium (Duoneb) 3 ml Q6HWA RESP THERAPY HHN Last administered on 04/15/18at 13:14; Admin Dose 3 ML; Start 03/28/18 at 20:00 Montelukast Sodium (Singulair) 10 mg QHS PO Last administered on 04/14/18at 20:28; Admin Dose 10 MG; Start 03/28/18 at 21:00 Pantoprazole (Protonix Tab) 40 mg DAILY@06 PO Last administered on 04/14/18 08:29; Admin Dose 40 MG; Start 03/29/18 at 06:00 Spironolactone (Aldactone) 25 mg DAILY PO Last administered on 04/15/18 08:50; Admin Dose 25 MG; Start 03/29/18 at 09:00 Tamsulosin HCl (Flomax) 0.4 mg HS PO Last administered on 04/14/18 20:29; Admin Dose 0.4 MG; Start 03/28/18 at 21:00 Tiotropium [place] (Spiriva) 1 inh DAILY INH Last administered on 04/15/18 08:52; Admin Dose 1 INH; Start 03/29/18 at 09:00 Albuterol (Proventil 0.083% (Neb)) 2.5 mg Q2H RESP THERAPY PRN HHN SHORTNESS OF BREATH Last administered on 04/06/18at 19:39; Admin Dose 2.5 MG; Start 03/28/18 at 16:30 IV Flush (NS 3 ml) 3 ml PER PROTOCOL IV ; Start 03/28/18 at 16:30 Ondansetron HCl (Zofran Inj) 4 mg Q6H PRN IV NAUSEA AND/OR VOMITING; Start 03/28/18 at 16:30 Nitroglycerin (Nitroglycerin (Sl Tab) 0.4 Mg) 1 tab Q5M PRN SL CHEST PAIN; Start 03/28/18 at 16:30 Acetaminophen (Tylenol Tab) 650 mg Q6H PRN PO PAIN LEVEL 1-3 OR FEVER Last administered on 04/13/18at 21:11; Admin Dose 650 MG; Start 03/28/18 at 16:30 Docusate Sodium (Colace) 100 mg Q12H PRN PO CONSTIPATION Last administered on 04/06/18 22:50; Admin Dose 100 MG; Start 03/28/18 at 16:30 Magnesium Hydroxide (Milk Of Mag) 30 ml DAILY PRN PO CONSTIPATION Last administered on 04/06/18 22:50; Admin Dose 30 ML; Start 03/28/18 at 16:30 Enoxaparin Sodium (Lovenox) 40 mg DAILY SC Last administered on 04/15/18 09:00; Admin Dose 40 MG; Start 03/29/18 at 09:00 Sacubitril/ Valsartan (Entresto 24 Mg-26 Mg) 1 tab BID PO Last administered on 04/15/18 08:49; Admin Dose 1 TAB; Start 03/28/18 at 21:00 Nystatin (Nystatin Powder) 1 applic BID TOP Last administered on 04/15/18 08:53; Admin Dose 1 APPLIC; Start 03/28/18 at 21:00 Cholecalciferol (Vitamin D) 2,000 unit BID PO Last administered on 04/15/18 08:48; Admin Dose 2,000 UNIT; Start 03/28/18 at 21:00 Miscellaneous Information (Pending Santyl Order For Wound Care) This patient rivera... PRN PRN XX soiled; Start 03/28/18 at 19:00 Senna/Docusate Sodium (Senokot-S) 2 tab DAILY PO Last administered on 04/15/18 08:49; Admin Dose 2 TAB; Start 03/30/18 at 09:00 Multivitamins Therapeutic (Theragran) 1 tab DAILY PO Last administered on 04/15/18 09:04; Admin Dose 1 TAB; Start 03/30/18 at 09:00 Gabapentin (Neurontin) 200 mg TID PO Last administered on 04/15/18 09:04; Admin Dose 200 MG; Start 03/30/18 at 13:00 Digoxin (Digoxin) 0.125 mg DAILY@13 PO Last administered on 04/14/18 13:35; Admin Dose 0.125 MG; Start 04/02/18 at 13:00 Oxycodone/ Acetaminophen (Percocet (5/ 325)) 1 tab Q4H PRN PO MODERATE PAIN LEVEL 4-6 Last administered on 04/15/18 10:49; Admin Dose 1 TAB; Start 04/02/18 at 14:00 Bisacodyl (Dulcolax) 5 mg DAILY PRN PO CONSTIPATION Last administered on 04/05/18 20:24; Admin Dose 5 MG; Start 04/02/18 at 18:30 Collagenase (Santyl) 1 applic DAILY TOP Last administered on 04/15/18 08:53; Admin Dose 1 APPLIC; Start 04/03/18 at 11:00 Vancomycin HCl (Vanco Iv Per Pharmacy) VANCOMYCIN PER PHARMACY PER PROTOCOL XX ; Start 04/04/18 at 17:30 Furosemide (Lasix) 40 mg DAILY PO Last administered on 04/15/18 08:52; Admin Dose 40 MG; Start 04/06/18 at 09:00 Vancomycin HCl 750 mg/Sodium Chloride 150 ml @ 75 mls/hr Q24H IVPB Last administered on 04/14/18 22:46; Admin Dose 75 MLS/HR; Start 04/05/18 at 23:00 Mupirocin (Bactroban) 1 applic BID TOP Last administered on 04/15/18 08:53; Admin Dose 1 APPLIC; Start 04/06/18 at 21:00 Cefepime HCl 50 ml @ 100 mls/hr Q12 IVPB Last administered on 04/15/18at 10:46; Admin Dose 100 MLS/HR; Start 04/09/18 at 15:30 Metoprolol Succinate (Toprol Xl) 50 mg BID PO Last administered on 04/15/18at 11:55; Admin Dose 50 MG; Start 04/13/18 at 21:00 Oxycodone HCl (Roxicodone) 30 mg Q6H PRN PO PAIN LEVEL 6-10 Last administered on 04/15/18 07:28; Admin Dose 30 MG; Start 04/13/18 at 16:00 VIVIAN PRINCE Apr 15, 2018 13:20
[2018-04-15] MEDS: DIGOXIN 0.125 MG TAB PO SCH (13:46)
--- NOTE | 2018-04-15 20:04 | CONS ---
Date/Time of Note Date/Time of Note DATE: 04/15/18 TIME: 20:01 Assessment/Plan Assessment/Plan Hospital Course ID PROGRESS NOTE CURRENT ABX: DAY # => Vanco IV + Cefepime 24H INTERVAL SUMMARY * No new issues, resting in bed watching TV, a/a/o VSS, NAD, no complaints * POD #3 --> s/p Satisfactory ultrasound-guided aspiration of right lower e xtremity fluid collection (STUMP). * 04/12/18 GRAM STAIN Final POLYMORPH. LEUKOCYTE NONE SEEN GRAM POS COCCI IN PAIRS RARE WOUND CULTURE Preliminary Culture too young to evaluate * 04/10/18 MRI RIGHT STUMP: Allowing for these limitations there appears to be soft tissue edema surrounding the femur from the mid thigh to the amputation site concerning for soft tissue infection.Question more focal appearing fluid collection at the amputation site which could represent an abscess versus seroma. MICRO * (+)MRSA * Urine Cx (+)CoNS * 04/12/18 GRAM STAIN Final POLYMORPH. LEUKOCYTE NONE SEEN GRAM POS COCCI IN PAIRS RARE WOUND CULTURE Preliminary Culture too young to evaluate PHYSICAL EXAMINATION: GENERAL: Afebrile, VSS, HEENT: AT, NC, anicteric NECK: Supple, trach CHEST: Equal chest rise bilaterally, without dyspnea on observation HEART: Pulse RRR ABDOMEN: Soft / NT EXTREMITIES: BLEXT AKA Stumps -- see photos SKIN: No rash, no diaphoresis ID ASSESSMENT 62 yo M admit with: 1. s/p Sepsis on admission w/Fevers, tachycardia, leukocytosis due to #2 2. Persistent leukocytosis secondary to right lower extremity stump abscess * 04/12/18 GRAM STAIN Final POLYMORPH. LEUKOCYTE NONE SEEN GRAM POS COCCI IN PAIRS RARE WOUND CULTURE Preliminary Culture too young to evaluate 3. COPD 4. Substance abuse=> Urine tox (+)Opioids/(+)Cocaine 5. Multiple wounds and pressure sores 6. 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 CV DX: CAD, H/O CABG, H/O GA, s/p acute CHF decompensation 8. Diabetes w/ complication of peripheral neuropathy (+)MRSA Nares -> Bactroban ABX ALLERGIES: NKDA INVASIVES: PI CURRENT ABX: DAY ==Vanco IV + Cefepime s/p ID RECOMMENDATIONS/PLAN: Continue current ABX Awaiting final micro pending . . Result Diagram: 04/15/18 0456 04/15/18 0456 Results 24hrs Laboratory Tests Test 04/15/18 04:56 White Blood Count 16.7 H Red Blood Count 4.82 Hemoglobin 11.3 L Hematocrit 35.4 L Mean Corpuscular Volume 73.4 L Mean Corpuscular Hemoglobin 23.4 L Mean Corpuscular Hemoglobin Concent 31.9 L Red Cell Distribution Width 20.9 H Platelet Count 527 H Mean Platelet Volume 10.4 Immature Granulocytes % 0.900 H Neutrophils % 79.1 H Lymphocytes % 10.1 L Monocytes % 9.1 Eosinophils % 0.5 Basophils % 0.3 Nucleated Red Blood Cells % 0.0 Immature Granulocytes # 0.150 H Neutrophils # 13.2 H Lymphocytes # 1.7 Monocytes # 1.5 H Eosinophils # 0.1 Basophils # 0.1 Nucleated Red Blood Cells # 0.0 Sodium Level 136 Potassium Level 4.9 Chloride Level 99 Carbon Dioxide Level 31 Anion Gap 6 Blood Urea Nitrogen 19 Creatinine 0.85 Glucose Level 102 Calcium Level 9.4 Phosphorus Level 4.4 Magnesium Level 2.2 Albumin 3.5 Consultation Date/Type/Reason Admit Date/Time Mar 29, 2018 at 07:48 Initial Consult Date Requesting Provider: SUSAN FAULKNER MD Exam/Review of Systems Vital Signs Vitals Vital Signs Date Temp Pulse Resp B/P (MAP) Pulse Ox O2 O2 Flow FiO2 Time Delivery Rate 04/15/18 109 20 99 21 19:45 04/15/18 98.2 113/60 15:57 (77) 04/14/18 Room Air 16:02 Intake and Output 04/14/18 04/14/18 04/15/18 1414:59 22:59 06:59 IntakeIntake Total 750 ml 650 ml OutputOutput Total 1100 ml 1200 ml BalanceBalance -350 ml -550 ml Medications Medications Current Medications Atorvastatin Calcium (Lipitor) 80 mg QHS PO Last administered on 04/14/18at 20:28; Admin Dose 80 MG; Start 03/28/18 at 21:00 Budesonide (Pulmicort (Neb)) 0.5 mg BID RESP THERAPY HHN Last administered on 04/15/18at 19:45; Admin Dose 0.5 MG; Start 03/28/18 at 20:00 Ferrous Gluconate (Fergon) 325 mg BID PO Last administered on 04/15/18 08:51; Admin Dose 325 MG; Start 03/28/18 at 21:00 Albuterol/ Ipratropium (Duoneb) 3 ml Q6HWA RESP THERAPY HHN Last administered on 04/15/18 19:45; Admin Dose 3 ML; Start 03/28/18 at 20:00 Montelukast Sodium (Singulair) 10 mg QHS PO Last administered on 04/14/18 20:28; Admin Dose 10 MG; Start 03/28/18 at 21:00 Pantoprazole (Protonix Tab) 40 mg DAILY@06 PO Last administered on 04/14/18 08:29; Admin Dose 40 MG; Start 03/29/18 at 06:00 Spironolactone (Aldactone) 25 mg DAILY PO Last administered on 04/15/18 08:50; Admin Dose 25 MG; Start 03/29/18 at 09:00 Tamsulosin HCl (Flomax) 0.4 mg HS PO Last administered on 04/14/18 20:29; Admin Dose 0.4 MG; Start 03/28/18 at 21:00 Tiotropium [place] (Spiriva) 1 inh DAILY INH Last administered on 04/15/18 08:52; Admin Dose 1 INH; Start 03/29/18 at 09:00 Albuterol (Proventil 0.083% (Neb)) 2.5 mg Q2H RESP THERAPY PRN HHN SHORTNESS OF BREATH Last administered on 04/06/18 19:39; Admin Dose 2.5 MG; Start 03/28/18 at 16:30 IV Flush (NS 3 ml) 3 ml PER PROTOCOL IV ; Start 03/28/18 at 16:30 Ondansetron HCl (Zofran Inj) 4 mg Q6H PRN IV NAUSEA AND/OR VOMITING; Start 03/28/18 at 16:30 Nitroglycerin (Nitroglycerin (Sl Tab) 0.4 Mg) 1 tab Q5M PRN SL CHEST PAIN; Start 03/28/18 at 16:30 Acetaminophen (Tylenol Tab) 650 mg Q6H PRN PO PAIN LEVEL 1-3 OR FEVER Last administered on 04/13/18 21:11; Admin Dose 650 MG; Start 03/28/18 at 16:30 Docusate Sodium (Colace) 100 mg Q12H PRN PO CONSTIPATION Last administered on 04/06/18 22:50; Admin Dose 100 MG; Start 03/28/18 at 16:30 Magnesium Hydroxide (Milk Of Mag) 30 ml DAILY PRN PO CONSTIPATION Last admini stered on 04/06/18 22:50; Admin Dose 30 ML; Start 03/28/18 at 16:30 Enoxaparin Sodium (Lovenox) 40 mg DAILY SC Last administered on 04/15/18 09:00; Admin Dose 40 MG; Start 03/29/18 at 09:00 Sacubitril/ Valsartan (Entresto 24 Mg-26 Mg) 1 tab BID PO Last administered on 04/15/18 08:49; Admin Dose 1 TAB; Start 03/28/18 at 21:00 Nystatin (Nystatin Powder) 1 applic BID TOP Last administered on 04/15/18 08:53; Admin Dose 1 APPLIC; Start 03/28/18 at 21:00 Cholecalciferol (Vitamin D) 2,000 unit BID PO Last administered on 04/15/18 08:48; Admin Dose 2,000 UNIT; Start 03/28/18 at 21:00 Miscellaneous Information (Pending [facility] Order For Wound Care) This patient rivera... PRN PRN XX soiled; Start 03/28/18 at 19:00 Senna/Docusate Sodium (Senokot-S) 2 tab DAILY PO Last administered on 04/15/18 08:49; Admin Dose 2 TAB; Start 03/30/18 at 09:00 Multivitamins Therapeutic (Theragran) 1 tab DAILY PO Last administered on 04/15/18 09:04; Admin Dose 1 TAB; Start 03/30/18 at 09:00 Gabapentin (Neurontin) 200 mg TID PO Last administered on 04/15/18 13:46; Admin Dose 200 MG; Start 03/30/18 at 13:00 Digoxin (Digoxin) 0.125 mg DAILY@13 PO Last administered on 04/15/18 13:46; Admin Dose 0.125 MG; Start 04/02/18 at 13:00 Oxycodone/ Acetaminophen (Percocet (5/ 325)) 1 tab Q4H PRN PO MODERATE PAIN LEVEL 4-6 Last administered on 04/15/18 10:49; Admin Dose 1 TAB; Start 04/02 at 14:00 Bisacodyl (Dulcolax) 5 mg DAILY PRN PO CONSTIPATION Last administered on 04/05/18 20:24; Admin Dose 5 MG; Start 04/02/18 at 18:30 Collagenase (Santyl) 1 applic DAILY TOP Last administered on 04/15/18 08:53; Admin Dose 1 APPLIC; Start 04/03/18 at 11:00 Vancomycin HCl (Vanco Iv Per Pharmacy) VANCOMYCIN PER PHARMACY PER PROTOCOL XX ; Start 04/04/18 at 17:30 Furosemide (Lasix) 40 mg DAILY PO Last administered on 04/15/18 08:52; Admin Dose 40 MG; Start 04/06/18 at 09:00 Vancomycin HCl 750 mg/Sodium Chloride 150 ml @ 75 mls/hr Q24H IVPB Last administered on 04/14/18 22:46; Admin Dose 75 MLS/HR; Start 04/05/18 at 23:00 Mupirocin (Bactroban) 1 applic BID TOP Last administered on 04/15/18 08:53; Admin Dose 1 APPLIC; Start 04/06/18 at 21:00 Cefepime HCl 50 ml @ 100 mls/hr Q12 IVPB Last administered on 04/15/18 10:46; Admin Dose 100 MLS/HR; Start 04/09/18 at 15:30 Metoprolol Succinate (Toprol Xl) 50 mg BID PO Last administered on 04/15/18 11:55; Admin Dose 50 MG; Start 04/13/18 at 21:00 Oxycodone HCl (Roxicodone) 30 mg Q6H PRN PO PAIN LEVEL 6-10 Last administered on 04/15/18 15:26; Admin Dose 30 MG; Start 04/13/18 at 16:00 MERCEDES KEARNEY NP Apr 15, 2018 20:04
[2018-04-15] MEDS: MONTELUKAST 10 MG TAB PO SCH (21:36)
[2018-04-15] MEDS: TAMSULOSIN (SR) 0.4 MG CAP PO SCH (21:36)
[2018-04-15] MEDS: ATORVASTATIN 80 MG TAB PO SCH (21:36)
[2018-04-15] MEDS ORDERED: morphine SULFATE/PF (2 MG/2 ML) SYG IV SCH (21:52)
[2018-04-15] MEDS: VANCOMYCIN 750 MG in SOD CHLORIDE 0.9% 150 ML IVPB SCH (23:43)
[2018-04-16] VITALS (12 sets, daily range): BP systolic 92–122; BP diastolic 55–62; PULSE 79–163; RESP 16–18
[2018-04-16] MEDS: oxyCODONE 15 MG TAB PO PRN ×3 (00:38→12:44)
[2018-04-16] MEDS: PANTOPRAZOLE (EC) 40 MG TAB PO SCH (06:30)
[2018-04-16] MEDS: ALBUTEROL/IPRATROPIUM (NEB) 3 ML AMP HHN SCH ×3 (08:35→20:07)
[2018-04-16] MEDS: BUDESONIDE (NEB) 0.5MG/2ML AMP HHN SCH ×2 (08:35→20:07)
[2018-04-16] MEDS: FERROUS GLUCONATE (EC) 325 MG TAB PO SCH ×2 (09:00→21:18)
[2018-04-16] MEDS: MULTIVITAMINS THERAPEUTIC TAB PO SCH (09:00)
[2018-04-16] MEDS: METOPROLOL (XL) 50 MG TAB PO SCH ×2 (09:00→21:19)
[2018-04-16] MEDS: SACUBITRIL/VALSARTAN (24mg-26mg) TABLET PO SCH ×2 (09:00→21:18)
[2018-04-16] MEDS: CHOLECALCIFEROL 2,000 UNIT CAP PO SCH ×2 (09:12→21:19)
[2018-04-16] MEDS: FUROSEMIDE 40 MG TAB PO SCH (09:12)
[2018-04-16] MEDS: SPIRONOLACTONE 25 MG TAB PO SCH (09:12)
[2018-04-16] MEDS: GABAPENTIN 100 MG CAP PO SCH ×3 (09:12→21:18)
[2018-04-16] MEDS: SENNA/DOCUSATE NA (8.6MG/50MG) TAB PO SCH (09:13)
[2018-04-16] MEDS: MUPIROCIN 2% 22 GM OINT TOP SCH ×2 (09:13→21:19)
[2018-04-16] MEDS: NYSTATIN 30 GM POWDER BTL TOP SCH ×2 (09:14→21:19)
[2018-04-16] MEDS: COLLAGENASE 5 GM (UD JAR) TOP SCH (09:14)
[2018-04-16] MEDS: CEFEPIME 1GM/50 ML (PMX) 50 ML IVPB SCH (09:15)
[2018-04-16] MEDS: ENOXAPARIN 40 MG/0.4 ML SYG SC SCH (09:36)
--- NOTE | 2018-04-16 11:10 | CONS ---
Date/Time of Note Date/Time of Note DATE: 04/16/18 TIME: 11:07 Assessment/Plan Assessment/Plan Hospital Course ID PROGRESS NOTE CURRENT ABX: DAY # => Vanco IV + Cefepime 24H INTERVAL SUMMARY * No new issues, resting in bed watching TV, a/a/o VSS, NAD, no complaints * POD #4--> s/p Satisfactory ultrasound-guided aspiration of right lower ex tremity fluid collection (STUMP). * 04/12/18 WOUND CULTURE Preliminary Organism 1 STAPHYLOCOCCUS AUREUS QUANTITY 1+ * 04/10/18 MRI RIGHT STUMP: Allowing for these limitations there appears to be soft tissue edema surrounding the femur from the mid thigh to the amputation site concerning for soft tissue infection.Question more focal appearing fluid collection at the amputation site which could represent an abscess versus seroma. MICRO * (+)MRSA * Urine Cx (+)CoNS * 04/12/18 WOUND CULTURE Preliminary Organism 1 STAPHYLOCOCCUS AUREUS QUANTITY 1+ PHYSICAL EXAMINATION: GENERAL: Afebrile, VSS, HEENT: AT, NC, anicteric NECK: Supple, trach CHEST: Equal chest rise bilaterally, without dyspnea on observation HEART: Pulse RRR ABDOMEN: Soft / NT EXTREMITIES: BLEXT AKA Stumps -- see photos SKIN: No rash, no diaphoresis ID ASSESSMENT 62 yo M admit with: 1. s/p Sepsis on admission w/Fevers, tachycardia, leukocytosis due to #2 2. Persistent leukocytosis secondary to right lower extremity stump abscess * 04/12/18 WOUND CULTURE Preliminary Organism 1 STAPHYLOCOCCUS AUREUS QUANTITY 1+ 3. COPD 4. Substance abuse=> Urine tox (+)Opioids/(+)Cocaine 5. Multiple wounds and pressure sores 6. 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 CV DX: CAD, H/O CABG, H/O [place], s/p acute CHF decompensation 8. Diabetes w/ complication of peripheral neuropathy (+)MRSA Nares -> Bactroban ABX ALLERGIES: NKDA INVASIVES: PI CURRENT ABX: DAY ==Vanco IV + Cefepime s/p ID RECOMMENDATIONS/PLAN: Continue Vanco IV -- DC Cefepime Awaiting final micro pending The patient needs another 6-8 week course of Vanco IV followed by lifelong ABX suppressive Tx w/Doxycycline PO BID . . Result Diagram: 04/16/187 04/16/187 Results 24hrs Laboratory Tests Test 04/16/18 04:37 White Blood Count 17.5 H Red Blood Count 4.67 L Hemoglobin 10.9 L Hematocrit 33.9 L Mean Corpuscular Volume 72.6 L Mean Corpuscular Hemoglobin 23.3 L Mean Corpuscular Hemoglobin Concent 32.2 Red Cell Distribution Width 20.6 H Platelet Count 498 H Mean Platelet Volume 10.9 H Immature Granulocytes % 0.800 H Neutrophils % 78.4 H Lymphocytes % 11.3 L Monocytes % 9.0 Eosinophils % 0.2 Basophils % 0.3 Nucleated Red Blood Cells % 0.0 Immature Granulocytes # 0.140 H Neutrophils # 13.7 H Lymphocytes # 2.0 Monocytes # 1.6 H Eosinophils # 0.0 Basophils # 0.1 Nucleated Red Blood Cells # 0.0 Sodium Level 134 L Potassium Level 4.9 Chloride Level 99 Carbon Dioxide Level 27 Anion Gap 8 Blood Urea Nitrogen 20 Creatinine 0.78 Glucose Level 96 Calcium Level 9.5 Phosphorus Level 4.1 Magnesium Level 2.1 Albumin 3.6 Consultation Date/Type/Reason Admit Date/Time Mar 29, 2018 at 07:48 Initial Consult Date Requesting Provider: SUSAN FAULKNER MD Exam/Review of Systems Vital Signs Vitals Vital Signs Date Temp Pulse Resp B/P (MAP) Pulse Ox O2 O2 Flow FiO2 Time Delivery Rate 04/16/18 106 16 96 21 08:35 04/16/18 98.7 92/55 (67) 07:23 04/14/18 Room Air 16:02 Intake and Output 04/15/18 04/15/18 04/16/18 1515:00 23:00 07:00 IntakeIntake Total 50 ml 1050 ml 750 ml OutputOutput Total 1400 ml 975 ml BalanceBalance 50 ml -350 ml -225 ml Medications Medications Current Medications Atorvastatin Calcium (Lipitor) 80 mg QHS PO Last administered on 04/15/18at 21:36; Admin Dose 80 MG; Start 03/28/18 at 21:00 Budesonide (Pulmicort (Neb)) 0.5 mg BID RESP THERAPY HHN Last administered on 04/16/18at 08:35; Admin Dose 0.5 MG; Start 03/28/18 at 20:00 Ferrous Gluconate (Fergon) 325 mg BID PO Last administered on 04/15/18 21:35; Admin Dose 325 MG; Start 03/28/18 at 21:00 Albuterol/ Ipratropium (Duoneb) 3 ml Q6HWA RESP THERAPY HHN Last administered on 04/16/18 08:35; Admin Dose 3 ML; Start 03/28/18 at 20:00 Montelukast Sodium (Singulair) 10 mg QHS PO Last administered on 04/15/18 21:36; Admin Dose 10 MG; Start 03/28/18 at 21:00 Pantoprazole (Protonix Tab) 40 mg DAILY@06 PO Last administered on 04/16/18 06:30; Admin Dose 40 MG; Start 03/29/18 at 06:00 Spironolactone (Aldactone) 25 mg DAILY PO Last administered on 04/16/18 09: 12; Admin Dose 25 MG; Start 03/29/18 at 09:00 Tamsulosin HCl (Flomax) 0.4 mg HS PO Last administered on 04/15/18 21:36; Admin Dose 0.4 MG; Start 03/28/18 at 21:00 Tiotropium [place] (Spiriva) 1 inh DAILY INH Last administered on 04/15/18 08:52; Admin Dose 1 INH; Start 03/29/18 at 09:00 Albuterol (Proventil 0.083% (Neb)) 2.5 mg Q2H RESP THERAPY PRN HHN SHORTNESS OF BREATH Last administered on 04/06/18 19:39; Admin Dose 2.5 MG; Start 03/28/18 at 16:30 IV Flush (NS 3 ml) 3 ml PER PROTOCOL IV ; Start 03/28/18 at 16:30 Ondansetron HCl (Zofran Inj) 4 mg Q6H PRN IV NAUSEA AND/OR VOMITING; Start 03/28/18 at 16:30 Nitroglycerin (Nitroglycerin (Sl Tab) 0.4 Mg) 1 tab Q5M PRN SL CHEST PAIN; Start 03/28/18 at 16:30 Acetaminophen (Tylenol Tab) 650 mg Q6H PRN PO PAIN LEVEL 1-3 OR FEVER Last administered on 04/13/18 21:11; Admin Dose 650 MG; Start 03/28/18 at 16:30 Docusate Sodium (Colace) 100 mg Q12H PRN PO CONSTIPATION Last administered on 04/06/18 22:50; Admin Dose 100 MG; Start 03/28/18 at 16:30 Magnesium Hydroxide (Milk Of Mag) 30 ml DAILY PRN PO CONSTIPATION Last adm inistered on 04/06/18 22:50; Admin Dose 30 ML; Start 03/28/18 at 16:30 Enoxaparin Sodium (Lovenox) 40 mg DAILY SC Last administered on 04/16/18 09:36; Admin Dose 40 MG; Start 03/29/18 at 09:00 Sacubitril/ Valsartan (Entresto 24 Mg-26 Mg) 1 tab BID PO Last administered on 04/15/18 21:37; Admin Dose 1 TAB; Start 03/28/18 at 21:00 Nystatin (Nystatin Powder) 1 applic BID TOP Last administered on 04/16/18 09:14; Admin Dose 1 APPLIC; Start 03/28/18 at 21:00 Cholecalciferol (Vitamin D) 2,000 unit BID PO Last administered on 04/16/18 09:12; Admin Dose 2,000 UNIT; Start 03/28/18 at 21:00 Miscellaneous Information (Pending [facility] Order For Wound Care) This patient rivera... PRN PRN XX soiled; Start 03/28/18 at 19:00 Senna/Docusate Sodium (Senokot-S) 2 tab DAILY PO Last administered on 04/16/18 09:13; Admin Dose 2 TAB; Start 03/30/18 at 09:00 Multivitamins Therapeutic (Theragran) 1 tab DAILY PO Last administered on 04/15/18 09:04; Admin Dose 1 TAB; Start 03/30/18 at 09:00 Gabapentin (Neurontin) 200 mg TID PO Last administered on 04/16/18 09:12; Admin Dose 200 MG; Start 03/30/18 at 13:00 Digoxin (Digoxin) 0.125 mg DAILY@13 PO Last administered on 04/15/18 13:46; Admin Dose 0.125 MG; Start 04/02/18 at 13:00 Oxycodone/ Acetaminophen (Percocet (5/ 325)) 1 tab Q4H PRN PO MODERATE PAIN LEVEL 4-6 Last administered on 04/15/18 10:49; Admin Dose 1 TAB; Start at 14:00 Bisacodyl (Dulcolax) 5 mg DAILY PRN PO CONSTIPATION Last administered on 04/05/18 20:24; Admin Dose 5 MG; Start 04/02/18 at 18:30 Collagenase (Santyl) 1 applic DAILY TOP Last administered on 04/16/18 09:14; Admin Dose 1 APPLIC; Start 04/03/18 at 11:00 Vancomycin HCl (Vanco Iv Per Pharmacy) VANCOMYCIN PER PHARMACY PER PROTOCOL XX ; Start 04/04/18 at 17:30 Furosemide (Lasix) 40 mg DAILY PO Last administered on 04/16/18 09:12; Admin Dose 40 MG; Start 04/06/18 at 09:00 Vancomycin HCl 750 mg/Sodium Chloride 150 ml @ 75 mls/hr Q24H IVPB Last administered on 04/15/18 23:43; Admin Dose 75 MLS/HR; Start 04/05/18 at 23:00 Mupirocin (Bactroban) 1 applic BID TOP Last administered on 04/16/18 09:13; Admin Dose 1 APPLIC; Start 04/06/18 at 21:00 Cefepime HCl 50 ml @ 100 mls/hr Q12 IVPB Last administered on 04/16/18 09:15; Admin Dose 100 MLS/HR; Start 04/09/18 at 15:30 Metoprolol Succinate (Toprol Xl) 50 mg BID PO Last administered on 04/15/18 21:37; Admin Dose 50 MG; Start 04/13/18 at 21:00 Oxycodone HCl (Roxicodone) 30 mg Q6H PRN PO PAIN LEVEL 6-10 Last administered on 04/16/18 06:30; Admin Dose 30 MG; Start 04/13/18 at 16:00 MERCEDES KEARNEY NP Apr 16, 2018 11:10
[2018-04-16] MEDS: TIOTROPIUM 18 MCG CAPSULE INHA DEV INH SCH (11:28)
[2018-04-16] MEDS: DIGOXIN 0.125 MG TAB PO SCH (12:44)
--- NOTE | 2018-04-16 13:53 | CONS ---
Date/Time of Note Date/Time of Note DATE: 04/16/18 TIME: 13:52 Assessment/Plan Assessment/Plan Hospital Course IMPRESSION: 1. Congestive heart failure exacerbation, systolic, acute on chronic. 2. Cardiomyopathy with severely depressed left ventricular ejection fraction with last being approximately 20%. 3. Hypertension. 4. Dyslipidemia. 5. History of substance abuse. 6. Chronic obstructive pulmonary disease. 7. Bilateral lower extremity amputation and presenting with right stump pain.- s/p IR guidede drainage of collection seen by LE CT 8. Questionable history of intracardiac thrombus not seen by most recent echocardiogram dated 01/06/2018, but with severely depressed ejection fraction at that time of 20%. 9. Tobacco intake. 10. SVT-regular recurrent to 160-180. Broke with PO BB. Also questionable WCT right before. Had recurrent SVT o/n 04/01.Slowly improving S tach Recc: -Tele -Continue entresto/BB as tolerated -Continue aldactone -Continue lasix daily -Continue bronchodilators/abx's and f/u cx data -Continue po digoxin -pain control Result Diagram: 04/16/18 0437 04/16/18 0437 Results 24hrs Laboratory Tests Test 04/16/18 04:37 White Blood Count 17.5 H Red Blood Count 4.67 L Hemoglobin 10.9 L Hematocrit 33.9 L Mean Corpuscular Volume 72.6 L Mean Corpuscular Hemoglobin 23.3 L Mean Corpuscular Hemoglobin Concent 32.2 Red Cell Distribution Width 20.6 H Platelet Count 498 H Mean Platelet Volume 10.9 H Immature Granulocytes % 0.800 H Neutrophils % 78.4 H Lymphocytes % 11.3 L Monocytes % 9.0 Eosinophils % 0.2 Basophils % 0.3 Nucleated Red Blood Cells % 0.0 Immature Granulocytes # 0.140 H Neutrophils # 13.7 H Lymphocytes # 2.0 Monocytes # 1.6 H Eosinophils # 0.0 Basophils # 0.1 Nucleated Red Blood Cells # 0.0 Sodium Level 134 L Potassium Level 4.9 Chloride Level 99 Carbon Dioxide Level 27 Anion Gap 8 Blood Urea Nitrogen 20 Creatinine 0.78 Glucose Level 96 Calcium Level 9.5 Phosphorus Level 4.1 Magnesium Level 2.1 Albumin 3.6 Consultation Date/Type/Reason Admit Date/Time Mar 29, 2018 at 07:48 Initial Consult Date 03/29/18 Type of Consult cardiology Reason for Consultation CHF Requesting Provider: SUSAN FAULKNER MD Exam/Review of Systems Vital Signs Vitals Vital Signs Date Temp Pulse Resp B/P (MAP) Pulse Ox O2 O2 Flow FiO2 Time Delivery Rate 04/16/18 92 12:00 04/16/18 97.6 16 109/62 100 11:31 (78) 04/16/18 21 08:35 04/14/18 Room Air 16:02 Intake and Output 04/15/18 04/15/18 04/16/18 1515:00 23:00 07:00 IntakeIntake Total 50 ml 1050 ml 750 ml OutputOutput Total 1400 ml 975 ml BalanceBalance 50 ml -350 ml -225 ml Exam Review of Systems: CONSTITUTIONAL: No fevers, chills. PULMONARY: No sob CARDIOVASCULAR: No chest pain/palpitations GASTROINTESTINAL: No nausea/vomiting. GENITOURINARY: No hematuria/dysuria. MUSCULOSKELETAL: No myagias/arthalgias. PSYCHIATRIC: The patient denies depression. NEUROLOGIC: No weakness Constitutional: alert Psych: no complaints Head: normocephalic ENMT: mucosa pink and moist Neck: supple, jvd (9 cm water) Respiratory: clear to auscultation Cardiovascular: regular rate and rhythm Gastrointestinal: soft, non-tender Musculoskeletal: muscle tone (normal) Extremities: edema (none) Neurological: other (No focal deficits) Medications Medications Current Medications Atorvastatin Calcium (Lipitor) 80 mg QHS PO Last administered on 04/15/18at 21:36; Admin Dose 80 MG; Start 03/28/18 at 21:00 Budesonide (Pulmicort (Neb)) 0.5 mg BID RESP THERAPY HHN Last administered on 04/16/18at 08:35; Admin Dose 0.5 MG; Start 03/28/18 at 20:00 Ferrous Gluconate (Fergon) 325 mg BID PO Last administered on 04/15/18 21:35; Admin Dose 325 MG; Start 03/28/18 at 21:00 Albuterol/ Ipratropium (Duoneb) 3 ml Q6HWA RESP THERAPY HHN Last administered on 04/16/18at 08:35; Admin Dose 3 ML; Start 03/28/18 at 20:00 Montelukast Sodium (Singulair) 10 mg QHS PO Last administered on 04/15/18 21:36; Admin Dose 10 MG; Start 03/28/18 at 21:00 Pantoprazole (Protonix Tab) 40 mg DAILY@06 PO Last administered on 04/16/18 06:30; Admin Dose 40 MG; Start 03/29/18 at 06:00 Spironolactone (Aldactone) 25 mg DAILY PO Last administered on 04/16/18 09:12; Admin Dose 25 MG; Start 03/29/18 at 09:00 Tamsulosin HCl (Flomax) 0.4 mg HS PO Last administered on 04/15/18 21:36; Admin Dose 0.4 MG; Start 03/28/18 at 21:00 Tiotropium [place] (Spiriva) 1 inh DAILY INH Last administered on 04/16/18 11:28; Admin Dose 1 INH; Start 03/29/18 at 09:00 Albuterol (Proventil 0.083% (Neb)) 2.5 mg Q2H RESP THERAPY PRN HHN SHORTNESS OF BREATH Last administered on 04/06/18 19:39; Admin Dose 2.5 MG; Start 03/28/18 at 16:30 IV Flush (NS 3 ml) 3 ml PER PROTOCOL IV ; Start 03/28/18 at 16:30 Ondansetron HCl (Zofran Inj) 4 mg Q6H PRN IV NAUSEA AND/OR VOMITING; Start 03/28/18 at 16:30 Nitroglycerin (Nitroglycerin (Sl Tab) 0.4 Mg) 1 tab Q5M PRN SL CHEST PAIN; Start 03/28/18 at 16:30 Acetaminophen (Tylenol Tab) 650 mg Q6H PRN PO PAIN LEVEL 1-3 OR FEVER Last administered on 04/13/18 21:11; Admin Dose 650 MG; Start 03/28/18 at 16:30 Docusate Sodium (Colace) 100 mg Q12H PRN PO CONSTIPATION Last administered on 04/06/18 22:50; Admin Dose 100 MG; Start 03/28/18 at 16:30 Magnesium Hydroxide (Milk Of Mag) 30 ml DAILY PRN PO CONSTIPATION Last administered on 04/06/18 22:50; Admin Dose 30 ML; Start 03/28/18 at 16:30 Enoxaparin Sodium (Lovenox) 40 mg DAILY SC Last administered on 04/16/18 0 9:36; Admin Dose 40 MG; Start 03/29/18 at 09:00 Sacubitril/ Valsartan (Entresto 24 Mg-26 Mg) 1 tab BID PO Last administered on 04/15/18 21:37; Admin Dose 1 TAB; Start 03/28/18 at 21:00 Nystatin (Nystatin Powder) 1 applic BID TOP Last administered on 04/16/18 09:14; Admin Dose 1 APPLIC; Start 03/28/18 at 21:00 Cholecalciferol (Vitamin D) 2,000 unit BID PO Last administered on 04/16/18 0 9:12; Admin Dose 2,000 UNIT; Start 03/28/18 at 21:00 Miscellaneous Information (Pending Santyl Order For Wound Care) This patient rivera... PRN PRN XX soiled; Start 03/28/18 at 19:00 Senna/Docusate Sodium (Senokot-S) 2 tab DAILY PO Last administered on 04/16/18 09:13; Admin Dose 2 TAB; Start 03/30/18 at 09:00 Multivitamins Therapeutic (Theragran) 1 tab DAILY PO Last administered on 04/15/18 09:04; Admin Dose 1 TAB; Start 03/30/18 at 09:00 Gabapentin (Neurontin) 200 mg TID PO Last administered on 04/16/18 12:43; Admin Dose 200 MG; Start 03/30/18 at 13:00 Digoxin (Digoxin) 0.125 mg DAILY@13 PO Last administered on 04/16/18 12:44; Admin Dose 0.125 MG; Start 04/02/18 at 13:00 Oxycodone/ Acetaminophen (Percocet (5/ 325)) 1 tab Q4H PRN PO MODERATE PAIN LEVEL 4-6 Last administered on 04/15/18 10:49; Admin Dose 1 TAB; Start 04/02/18 at 14:00 Bisacodyl (Dulcolax) 5 mg DAILY PRN PO CONSTIPATION Last administered on 04/05/18 20:24; Admin Dose 5 MG; Start 04/02/18 at 18:30 Collagenase (Santyl) 1 applic DAILY TOP Last administered on 04/16/18 09:14; Admin Dose 1 APPLIC; Start 04/03/18 at 11:00 Vancomycin HCl (Vanco Iv Per Pharmacy) VANCOMYCIN PER PHARMACY PER PROTOCOL XX ; Start 04/04/18 at 17:30 Furosemide (Lasix) 40 mg DAILY PO Last administered on 04/16/18at 09:12; Admin Dose 40 MG; Start 04/06/18 at 09:00 Vancomycin HCl 750 mg/Sodium Chloride 150 ml @ 75 mls/hr Q24H IVPB Last administered on 04/15/18at 23:43; Admin Dose 75 MLS/HR; Start 04/05/18 at 23:00 Mupirocin (Bactroban) 1 applic BID TOP Last administered on 04/16/18at 09:13; Admin Dose 1 APPLIC; Start 04/06/18 at 21:00 Metoprolol Succinate (Toprol Xl) 50 mg BID PO Last administered on 04/15/18at 21:37; Admin Dose 50 MG; Start 04/13/18 at 21:00 Oxycodone HCl (Roxicodone) 30 mg Q6H PRN PO PAIN LEVEL 6-10 Last administered on 04/16/18at 12:44; Admin Dose 30 MG; Start 04/13/18 at 16:00 VIVIAN PRINCE Apr 16, 2018 13:53
--- NOTE | 2018-04-16 14:07 | PN ---
Date/Time of Note Date/Time of Note DATE: 04/16/18 TIME: 13:59 Objective Vitals Vital Signs Date Temp Pulse Resp B/P (MAP) Pulse Ox O2 O2 Flow FiO2 Time Delivery Rate 04/16/18 92 12:00 04/16/18 97.6 16 109/62 100 11:31 (78) 04/16/18 21 08:35 04/14/18 Room Air 16:02 Intake and Output 04/15/18 04/15/18 04/16/18 1515:00 23:00 07:00 IntakeIntake Total 50 ml 1050 ml 750 ml OutputOutput Total 1400 ml 975 ml BalanceBalance 50 ml -350 ml -225 ml Results Result Diagram: 04/16/18 0437 04/16/18 0437 Medications Medications Current Medications Atorvastatin Calcium (Lipitor) 80 mg QHS PO Last administered on 04/15/18 21:36; Admin Dose 80 MG; Start 03/28/18 at 21:00 Budesonide (Pulmicort (Neb)) 0.5 mg BID RESP THERAPY HHN Last administered on 04/16/18 08:35; Admin Dose 0.5 MG; Start 03/28/18 at 20:00 Ferrous Gluconate (Fergon) 325 mg BID PO Last administered on 04/15/18 21:35; Admin Dose 325 MG; Start 03/28/18 at 21:00 Albuterol/ Ipratropium (Duoneb) 3 ml Q6HWA RESP THERAPY HHN Last administered on 04/16/18 13:56; Admin Dose 3 ML; Start 03/28/18 at 20:00 Montelukast Sodium (Singulair) 10 mg QHS PO Last administered on 04/15/18 21:36; Admin Dose 10 MG; Start 03/28/18 at 21:00 Pantoprazole (Protonix Tab) 40 mg DAILY@06 PO Last administered on 04/16/18 06:30; Admin Dose 40 MG; Start 03/29/18 at 06:00 Spironolactone (Aldactone) 25 mg DAILY PO Last administered on 04/16/18 09:12; Admin Dose 25 MG; Start 03/29/18 at 09:00 Tamsulosin HCl (Flomax) 0.4 mg HS PO Last administered on 04/15/18 21:36; Admin Dose 0.4 MG; Start 03/28/18 at 21:00 Tiotropium [place] (Spiriva) 1 inh DAILY INH Last administered on 04/16/18 11:28; Admin Dose 1 INH; Start 03/29/18 at 09:00 Albuterol (Proventil 0.083% (Neb)) 2.5 mg Q2H RESP THERAPY PRN HHN SHORTNESS OF BREATH Last administered on 04/06/18 19:39; Admin Dose 2.5 MG; Start 03/28/18 at 16:30 IV Flush (NS 3 ml) 3 ml PER PROTOCOL IV ; Start 03/28/18 at 16:30 Ondansetron HCl (Zofran Inj) 4 mg Q6H PRN IV NAUSEA AND/OR VOMITING; Start 03/28/18 at 16:30 Nitroglycerin (Nitroglycerin (Sl Tab) 0.4 Mg) 1 tab Q5M PRN SL CHEST PAIN; Start 03/28/18 at 16:30 Acetaminophen (Tylenol Tab) 650 mg Q6H PRN PO PAIN LEVEL 1-3 OR FEVER Last administered on 04/13/18 21:11; Admin Dose 650 MG; Start 03/28/18 at 16:30 Docusate Sodium (Colace) 100 mg Q12H PRN PO CONSTIPATION Last administered on 04/06/18 22:50; Admin Dose 100 MG; Start 03/28/18 at 16:30 Magnesium Hydroxide (Milk Of Mag) 30 ml DAILY PRN PO CONSTIPATION Last administered on 04/06/18 22:50; Admin Dose 30 ML; Start 03/28/18 at 16:30 Enoxaparin Sodium (Lovenox) 40 mg DAILY SC Last administered on 04/16/18 09:36; Admin Dose 40 MG; Start 03/29/18 at 09:00 Sacubitril/ Valsartan (Entresto 24 Mg-26 Mg) 1 tab BID PO Last administered on 04/15/18 21:37; Admin Dose 1 TAB; Start 03/28/18 at 21:00 Nystatin (Nystatin Powder) 1 applic BID TOP Last administered on 04/16/18 09:14; Admin Dose 1 APPLIC; Start 03/28/18 at 21:00 Cholecalciferol (Vitamin D) 2,000 unit BID PO Last administered on 04/16/18 09:12; Admin Dose 2,000 UNIT; Start 03/28/18 at 21:00 Miscellaneous Information (Pending Santyl Order For Wound Care) This patient rivera... PRN PRN XX soiled; Start 03/28/18 at 19:00 Senna/Docusate Sodium (Senokot-S) 2 tab DAILY PO Last administered on 04/16/18 09:13; Admin Dose 2 TAB; Start 03/30/18 at 09:00 Multivitamins Therapeutic (Theragran) 1 tab DAILY PO Last administered on 04/15/18 09:04; Admin Dose 1 TAB; Start 03/30/18 at 09:00 Gabapentin (Neurontin) 200 mg TID PO Last administered on 04/16/18 12:43; Admin Dose 200 MG; Start 03/30/18 at 13:00 Digoxin (Digoxin) 0.125 mg DAILY@13 PO Last administered on 04/16/18 12:44; Admin Dose 0.125 MG; Start 04/02/18 at 13:00 Oxycodone/ Acetaminophen (Percocet (5/ 325)) 1 tab Q4H PRN PO MODERATE PAIN LEVEL 4-6 Last administered on 04/15/18 10:49; Admin Dose 1 TAB; Start 04/02/18 at 14:00 Bisacodyl (Dulcolax) 5 mg DAILY PRN PO CONSTIPATION Last administered on 04/05/18 20:24; Admin Dose 5 MG; Start 04/02/18 at 18:30 Collagenase (Santyl) 1 applic DAILY TOP Last administered on 04/16/18 09:14; Admin Dose 1 APPLIC; Start 04/03/18 at 11:00 Vancomycin HCl (Vanco Iv Per Pharmacy) VANCOMYCIN PER PHARMACY PER PROTOCOL XX ; Start 04/04/18 at 17:30 Furosemide (Lasix) 40 mg DAILY PO Last administered on 04/16/18 09:12; Admin Dose 40 MG; Start 04/06/18 at 09:00 Vancomycin HCl 750 mg/Sodium Chloride 150 ml @ 75 mls/hr Q24H IVPB Last administered on 04/15/18 23:43; Admin Dose 75 MLS/HR; Start 04/05/18 at 23:00 Mupirocin (Bactroban) 1 applic BID TOP Last administered on 04/16/18at 09:13; Admin Dose 1 APPLIC; Start 04/06/18 at 21:00 Metoprolol Succinate (Toprol Xl) 50 mg BID PO Last administered on 04/15/18at 21:37; Admin Dose 50 MG; Start 04/13/18 at 21:00 Oxycodone HCl (Roxicodone) 30 mg Q6H PRN PO PAIN LEVEL 6-10 Last administered on 04/16/18at 12:44; Admin Dose 30 MG; Start 04/13/18 at 16:00 VTE Prophylaxis Risk score (from Ns)>0 risk: 6 [place]CD applied [place]from [facility] [place] SCD contraindication: other Lines/Catheters IV Catheter Type: Delatorre in Place: No Assessment/Plan Hospital Course Subjective No new acute complaints, leg pain has improved since last week, more pus came out yesterday Objective Physical exam General: Patient is laying in bed and answers questions appropriately Mentation: Patient is alert and oriented 4, Head: Normocephalic atraumatic Eyes: EOMI, pupils reactive to light Neck: Supple, nontender, midline Respiratory: Clear to auscultation bilaterally Cardiovascular: regular rate, no obvious murmurs Gastrointestinal: non-tender to palpation, bowel sounds heard. Neurological: Moves all extremities spontaneously Musculoskeletal: Bilateral AKA Assessment/Plan 1. Acute infection in right thigh s/p amputation at [facility] - IR drained large amount of pus from right stump and sent for cultures. Awaiting results - Discussed case with vascular who is recommending patient return to [facility] for intervention on right stump given operation was performed there. - Spoke with Ortho about drainage of abscess and stated if not in bone or joint, would defer to General surgery. - General surgery consulted and requested CTA. CTA resulted with no findings that differ from previous imaging studies - ID on board and appreciate recommendations. Will continue current antibiotics and await cultures from abscess - Pain management on board and appreciate consultation. - LE US negative for DVT. 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 Discussed with vascular, Dr. Rodríguez, who said it was chronic and will need to follow up with outpatient clinic at [facility] since RL E amputation was performed there. - PT/OT on board 2. leukocytosis- trending down - ID on board and appreciate recommendations 3. Acute on chronic systolic heart failure- resolved - Cardiology consultation appreciated. - Echo results noted from prior admission with EF 20% 4. Wounds on elbows and sacrum - wound consultation appreciated 5. CAD - continue all home medications - stable 6. b/l AKA secondary to PVD 7. Episode of sustained vtach - patient has recurrence this am of vtach for 4 and 7 sec. - Cardiology on board and continues to adjust medications as needed 8. Disposition - Awaiting cultures from right stump aspiration - Cardiology on board for management of patients recurrence of Vtach - No SNF accepting and will need HHPT when ready for d/c ZACH SIMON Apr 16, 2018 14:07
[2018-04-16] MEDS: MONTELUKAST 10 MG TAB PO SCH (21:18)
[2018-04-16] MEDS: ATORVASTATIN 80 MG TAB PO SCH (21:18)
[2018-04-16] MEDS: TAMSULOSIN (SR) 0.4 MG CAP PO SCH (21:18)
[2018-04-16] MEDS: VANCOMYCIN 750 MG in SOD CHLORIDE 0.9% 150 ML IVPB SCH (21:20)
[2018-04-17] VITALS (12 sets, daily range): BP systolic 94–125; BP diastolic 51–63; PULSE 87–104; RESP 18–20
[2018-04-17] MEDS: PANTOPRAZOLE (EC) 40 MG TAB PO SCH (06:22)
[2018-04-17] MEDS: ALBUTEROL/IPRATROPIUM (NEB) 3 ML AMP HHN SCH ×3 (08:00→19:31)
[2018-04-17] MEDS: MUPIROCIN 2% 22 GM OINT TOP SCH ×2 (08:05→21:08)
[2018-04-17] MEDS: NYSTATIN 30 GM POWDER BTL TOP SCH ×2 (08:05→21:08)
[2018-04-17] MEDS: FERROUS GLUCONATE (EC) 325 MG TAB PO SCH ×2 (08:06→21:04)
[2018-04-17] MEDS: GABAPENTIN 100 MG CAP PO SCH ×3 (08:06→21:05)
[2018-04-17] MEDS: SPIRONOLACTONE 25 MG TAB PO SCH (08:06)
[2018-04-17] MEDS: MULTIVITAMINS THERAPEUTIC TAB PO SCH (08:06)
[2018-04-17] MEDS: METOPROLOL (XL) 50 MG TAB PO SCH ×2 (08:06→21:05)
[2018-04-17] MEDS: TIOTROPIUM 18 MCG CAPSULE INHA DEV INH SCH (08:06)
[2018-04-17] MEDS: COLLAGENASE 5 GM (UD JAR) TOP SCH (08:07)
[2018-04-17] MEDS: oxyCODONE 15 MG TAB PO PRN ×2 (08:07→21:06)
[2018-04-17] MEDS: FUROSEMIDE 40 MG TAB PO SCH (08:07)
[2018-04-17] MEDS: SACUBITRIL/VALSARTAN (24mg-26mg) TABLET PO SCH ×2 (08:07→21:04)
[2018-04-17] MEDS: SENNA/DOCUSATE NA (8.6MG/50MG) TAB PO SCH (08:07)
[2018-04-17] MEDS: CHOLECALCIFEROL 2,000 UNIT CAP PO SCH ×2 (08:08→21:00)
[2018-04-17] MEDS: ENOXAPARIN 40 MG/0.4 ML SYG SC SCH (08:14)
[2018-04-17] MEDS: BUDESONIDE (NEB) 0.5MG/2ML AMP HHN SCH ×2 (08:58→19:31)
[2018-04-17] MEDS: DIGOXIN 0.125 MG TAB PO SCH (12:21)
[2018-04-17] MEDS ORDERED: VITAMIN A & D 5 GM OINT PACKET TOP ONE (12:23)
--- NOTE | 2018-04-17 13:15 | CONS ---
Date/Time of Note Date/Time of Note DATE: 04/17/18 TIME: 13:14 Assessment/Plan Assessment/Plan Hospital Course IMPRESSION: 1. Congestive heart failure exacerbation, systolic, acute on chronic. 2. Cardiomyopathy with severely depressed left ventricular ejection fraction with last being approximately 20%. 3. Hypertension. 4. Dyslipidemia. 5. History of substance abuse. 6. Chronic obstructive pulmonary disease. 7. Bilateral lower extremity amputation and presenting with right stump pain.- s/p IR guidede drainage of collection seen by LE CT 8. Questionable history of intracardiac thrombus not seen by most recent echocardiogram dated 01/06/2018, but with severely depressed ejection fraction at that time of 20%. 9. Tobacco intake. 10. SVT-regular recurrent to 160-180. Broke with PO BB. Also questionable WCT right before. Had recurrent SVT o/n 04/01.Slowly improving S tach 11.Fluid collection at stump site by CTA Recc: -Tele -Continue entresto/BB as tolerated -Continue aldactone -Continue lasix daily -Continue bronchodilators/abx's and f/u cx data -Continue po digoxin -pain control -ongoing surgical eval of limb paini/fluid collection Result Diagram: 04/17/18 0426 04/17/18 0426 Results 24hrs Laboratory Tests Test 04/17/18 04:26 White Blood Count 12.2 #H Red Blood Count 4.34 L Hemoglobin 10.1 L Hematocrit 31.8 L Mean Corpuscular Volume 73.3 L Mean Corpuscular Hemoglobin 23.3 L Mean Corpuscular Hemoglobin Concent 31.8 L Red Cell Distribution Width 20.5 H Platelet Count 516 H Mean Platelet Volume 10.9 H Immature Granulocytes % 0.700 H Neutrophils % 75.6 Lymphocytes % 13.7 L Monocytes % 9.1 Eosinophils % 0.7 Basophils % 0.2 Nucleated Red Blood Cells % 0.0 Immature Granulocytes # 0.090 H Neutrophils # 9.2 H Lymphocytes # 1.7 Monocytes # 1.1 H Eosinophils # 0.1 Basophils # 0.0 Nucleated Red Blood Cells # 0.0 Sodium Level 134 L Potassium Level 4.4 Chloride Level 100 Carbon Dioxide Level 26 Anion Gap 8 Blood Urea Nitrogen 22 H Creatinine 0.71 Est Glomerular Filtrat Rate mL/min > 60 Glucose Level 152 Calcium Level 9.1 Phosphorus Level 4.2 Magnesium Level 2.0 Consultation Date/Type/Reason Admit Date/Time Mar 29, 2018 at 07:48 Initial Consult Date 03/29/18 Type of Consult cardiology Reason for Consultation CHF Requesting Provider: SUSAN FAULKNER MD Exam/Review of Systems Vital Signs Vitals Vital Signs Date Temp Pulse Resp B/P (MAP) Pulse Ox O2 O2 Flow FiO2 Time Delivery Rate 04/17/18 102 12:00 04/17/18 98.3 20 94/51 (65) 96 11:02 04/16/18 21 20:08 04/14/18 Room Air 16:02 Intake and Output 04/16/18 04/16/18 04/17/18 1515:00 23:00 07:00 IntakeIntake Total 50 ml 900 ml 550 ml OutputOutput Total 1400 ml BalanceBalance 50 ml -500 ml 550 ml Exam Review of Systems: CONSTITUTIONAL: No fevers, chills. PULMONARY: No sob CARDIOVASCULAR: No chest pain/palpitations GASTROINTESTINAL: No nausea/vomiting. GENITOURINARY: No hematuria/dysuria. MUSCULOSKELETAL: No myagias/arthalgias. PSYCHIATRIC: The patient denies depression. NEUROLOGIC: No weakness Constitutional: alert, oriented Psych: no complaints Head: normocephalic ENMT: mucosa pink and moist Neck: supple, jvd (9 cm water) Respiratory: clear to auscultation Cardiovascular: regular rate and rhythm Gastrointestinal: soft, non-tender Musculoskeletal: muscle weakness (generalized) Extremities: other (bilateral LE amputation) Medications Medications Current Medications Atorvastatin Calcium (Lipitor) 80 mg QHS PO Last administered on 04/16/18at 21:18; Admin Dose 80 MG; Start 03/28/18 at 21:00 Budesonide (Pulmicort (Neb)) 0.5 mg BID RESP THERAPY HHN Last administered on 04/16/18at 20:07; Admin Dose 0.5 MG; Start 03/28/18 at 20:00 Ferrous Gluconate (Fergon) 325 mg BID PO Last administered on 04/17/18at 08:06; Admin Dose 325 MG; Start 03/28/18 at 21:00 Albuterol/ Ipratropium (Duoneb) 3 ml Q6HWA RESP THERAPY HHN Last administered on 04/16/18at 20:07; Admin Dose 3 ML; Start 03/28/18 at 20:00 Montelukast Sodium (Singulair) 10 mg QHS PO Last administered on 04/16/18 21:18; Admin Dose 10 MG; Start 03/28/18 at 21:00 Pantoprazole (Protonix Tab) 40 mg DAILY@06 PO Last administered on 04/17/18 06: 22; Admin Dose 40 MG; Start 03/29/18 at 06:00 Spironolactone (Aldactone) 25 mg DAILY PO Last administered on 04/17/18 08:06; Admin Dose 25 MG; Start 03/29/18 at 09:00 Tamsulosin HCl (Flomax) 0.4 mg HS PO Last administered on 04/16/18 21:18; Admin Dose 0.4 MG; Start 03/28/18 at 21:00 Tiotropium [place] (Spiriva) 1 inh DAILY INH Last administered on 04/17/18 08:06; Admin Dose 1 INH; Start 03/29/18 at 09:00 Albuterol (Proventil 0.083% (Neb)) 2.5 mg Q2H RESP THERAPY PRN HHN SHORTNESS OF BREATH Last administered on 04/06/18at 19:39; Admin Dose 2.5 MG; Start 03/28/18 at 16:30 IV Flush (NS 3 ml) 3 ml PER PROTOCOL IV ; Start 03/28/18 at 16:30 Ondansetron HCl (Zofran Inj) 4 mg Q6H PRN IV NAUSEA AND/OR VOMITING; Start 03/28/18 at 16:30 Nitroglycerin (Nitroglycerin (Sl Tab) 0.4 Mg) 1 tab Q5M PRN SL CHEST PAIN; Start 03/28/18 at 16:30 Acetaminophen (Tylenol Tab) 650 mg Q6H PRN PO PAIN LEVEL 1-3 OR FEVER Last administered on 04/13/18at 21:11; Admin Dose 650 MG; Start 03/28/18 at 16:30 Docusate Sodium (Colace) 100 mg Q12H PRN PO CONSTIPATION Last administered on 04/06/18at 22:50; Admin Dose 100 MG; Start 03/28/18 at 16:30 Magnesium Hydroxide (Milk Of Mag) 30 ml DAILY PRN PO CONSTIPATION Last administered on 04/06/18at 22:50; Admin Dose 30 ML; Start 03/28/18 at 16:30 Enoxaparin Sodium (Lovenox) 40 mg DAILY SC Last administered on 04/17/18 08:14; Admin Dose 40 MG; Start 03/29/18 at 09:00 Sacubitril/ Valsartan (Entresto 24 Mg-26 Mg) 1 tab BID PO Last administered on 04/17/18 08:07; Admin Dose 1 TAB; Start 03/28/18 at 21:00 Nystatin (Nystatin Powder) 1 applic BID TOP Last administered on 04/17/18 08:05; Admin Dose 1 APPLIC; Start 03/28/18 at 21:00 Cholecalciferol (Vitamin D) 2,000 unit BID PO Last administered on 04/17/18 08:08; Admin Dose 2,000 UNIT; Start 03/28/18 at 21:00 Miscellaneous Information (Pending Santyl Order For Wound Care) This patient rivera... PRN PRN XX soiled; Start 03/28/18 at 19:00 Senna/Docusate Sodium (Senokot-S) 2 tab DAILY PO Last administered on 04/17/18 08:07; Admin Dose 2 TAB; Start 03/30/18 at 09:00 Multivitamins Therapeutic (Theragran) 1 tab DAILY PO Last administered on 04/17/18 08:06; Admin Dose 1 TAB; Start 03/30/18 at 09:00 Gabapentin (Neurontin) 200 mg TID PO Last administered on 04/17/18 12:20; Admin Dose 200 MG; Start 03/30/18 at 13:00 Digoxin (Digoxin) 0.125 mg DAILY@13 PO Last administered on 04/17/18 12:21; Admin Dose 0.125 MG; Start 04/02/18 at 13:00 Oxycodone/ Acetaminophen (Percocet (5/ 325)) 1 tab Q4H PRN PO MODERATE PAIN LEVEL 4-6 Last administered on 04/15/18 10:49; Admin Dose 1 TAB; Start 04/02/18 at 14:00 Bisacodyl (Dulcolax) 5 mg DAILY PRN PO CONSTIPATION Last administered on 04/05at 20:24; Admin Dose 5 MG; Start 04/02/18 at 18:30 Collagenase (Santyl) 1 applic DAILY TOP Last administered on 04/17/18 08:07; Admin Dose 1 APPLIC; Start 04/03/18 at 11:00 Vancomycin HCl (Vanco Iv Per Pharmacy) VANCOMYCIN PER PHARMACY PER PROTOCOL XX ; Start 04/04/18 at 17:30 Furosemide (Lasix) 40 mg DAILY PO Last administered on 04/17/18 08:07; Admin Dose 40 MG; Start 04/06/18 at 09:00 Vancomycin HCl 750 mg/Sodium Chloride 150 ml @ 75 mls/hr Q24H IVPB Last administered on 04/16/18at 21:20; Admin Dose 75 MLS/HR; Start 04/05/18 at 23:00 Mupirocin (Bactroban) 1 applic BID TOP Last administered on 04/17/18 08:05; Admin Dose 1 APPLIC; Start 04/06/18 at 21:00 Metoprolol Succinate (Toprol Xl) 50 mg BID PO Last administered on 04/17/18 08:06; Admin Dose 50 MG; Start 04/13/18 at 21:00 Oxycodone HCl (Roxicodone) 30 mg Q6H PRN PO PAIN LEVEL 6-10 Last administered on 04/17/18 08:07; Admin Dose 30 MG; Start 04/13/18 at 16:00 Miscellaneous Information (*Rx Drug Level Order Reminder*) VANCOMYCIN TROUGH 04/17 AT 2200 ONCE ONCE XX ; Start 04/17/18 at 22:00; Stop 04/17/18 at 22:01 VIVIAN PRINCE Apr 17, 2018 13:15
--- NOTE | 2018-04-17 13:24 | PN ---
Date/Time of Note Date/Time of Note DATE: 04/17/18 TIME: 13:23 Objective Vitals Vital Signs Date Temp Pulse Resp B/P (MAP) Pulse Ox O2 O2 Flow FiO2 Time Delivery Rate 04/17/18 102 12:00 04/17/18 98.3 20 94/51 (65) 96 11:02 04/16/18 21 20:08 04/14/18 Room Air 16:02 Intake and Output 04/16/18 04/16/18 04/17/18 1515:00 23:00 07:00 IntakeIntake Total 50 ml 900 ml 550 ml OutputOutput Total 1400 ml BalanceBalance 50 ml -500 ml 550 ml Results Result Diagram: 04/17/18 0426 04/17/18 0426 Medications Medications Current Medications Atorvastatin Calcium (Lipitor) 80 mg QHS PO Last administered on 04/16/18at 21:18; Admin Dose 80 MG; Start 03/28/18 at 21:00 Budesonide (Pulmicort (Neb)) 0.5 mg BID RESP THERAPY HHN Last administered on 04/16/18at 20:07; Admin Dose 0.5 MG; Start 03/28/18 at 20:00 Ferrous Gluconate (Fergon) 325 mg BID PO Last administered on 04/17/18 08:06; Admin Dose 325 MG; Start 03/28/18 at 21:00 Albuterol/ Ipratropium (Duoneb) 3 ml Q6HWA RESP THERAPY HHN Last administered on 04/16/18 20:07; Admin Dose 3 ML; Start 03/28/18 at 20:00 Montelukast Sodium (Singulair) 10 mg QHS PO Last administered on 04/16/18 21:18; Admin Dose 10 MG; Start 03/28/18 at 21:00 Pantoprazole (Protonix Tab) 40 mg DAILY@06 PO Last administered on 04/17/18 06:22; Admin Dose 40 MG; Start 03/29/18 at 06:00 Spironolactone (Aldactone) 25 mg DAILY PO Last administered on 04/17/18 08:06; Admin Dose 25 MG; Start 03/29/18 at 09:00 Tamsulosin HCl (Flomax) 0.4 mg HS PO Last administered on 04/16/18 21:18; Admin Dose 0.4 MG; Start 03/28/18 at 21:00 Tiotropium [place] (Spiriva) 1 inh DAILY INH Last administered on 04/17/18 08:06; Admin Dose 1 INH; Start 03/29/18 at 09:00 Albuterol (Proventil 0.083% (Neb)) 2.5 mg Q2H RESP THERAPY PRN HHN SHORTNESS OF BREATH Last administered on 04/06/18at 19:39; Admin Dose 2.5 MG; Start 03/28/18 at 16:30 IV Flush (NS 3 ml) 3 ml PER PROTOCOL IV ; Start 03/28/18 at 16:30 Ondansetron HCl (Zofran Inj) 4 mg Q6H PRN IV NAUSEA AND/OR VOMITING; Start 03/28/18 at 16:30 Nitroglycerin (Nitroglycerin (Sl Tab) 0.4 Mg) 1 tab Q5M PRN SL CHEST PAIN; Start 03/28/18 at 16:30 Acetaminophen (Tylenol Tab) 650 mg Q6H PRN PO PAIN LEVEL 1-3 OR FEVER Last administered on 04/13/18at 21:11; Admin Dose 650 MG; Start 03/28/18 at 16:30 Docusate Sodium (Colace) 100 mg Q12H PRN PO CONSTIPATION Last administered on 04/06/18at 22:50; Admin Dose 100 MG; Start 03/28/18 at 16:30 Magnesium Hydroxide (Milk Of Mag) 30 ml DAILY PRN PO CONSTIPATION Last administered on 04/06/18at 22:50; Admin Dose 30 ML; Start 03/28/18 at 16:30 Enoxaparin Sodium (Lovenox) 40 mg DAILY SC Last administered on 04/17/18 08:14; Admin Dose 40 MG; Start 03/29/18 at 09:00 Sacubitril/ Valsartan (Entresto 24 Mg-26 Mg) 1 tab BID PO Last administered on 04/17/18 08:07; Admin Dose 1 TAB; Start 03/28/18 at 21:00 Nystatin (Nystatin Powder) 1 applic BID TOP Last administered on 04/17/18 08:05; Admin Dose 1 APPLIC; Start 03/28/18 at 21:00 Cholecalciferol (Vitamin D) 2,000 unit BID PO Last administered on 04/17/18 08:08; Admin Dose 2,000 UNIT; Start 03/28/18 at 21:00 Miscellaneous Information (Pending Santyl Order For Wound Care) This patient rivera... PRN PRN XX soiled; Start 03/28/18 at 19:00 Senna/Docusate Sodium (Senokot-S) 2 tab DAILY PO Last administered on 04/17/18 08:07; Admin Dose 2 TAB; Start 03/30/18 at 09:00 Multivitamins Therapeutic (Theragran) 1 tab DAILY PO Last administered on 04/17/18 08:06; Admin Dose 1 TAB; Start 03/30/18 at 09:00 Gabapentin (Neurontin) 200 mg TID PO Last administered on 04/17/18 12:20; Admin Dose 200 MG; Start 03/30/18 at 13:00 Digoxin (Digoxin) 0.125 mg DAILY@13 PO Last administered on 04/17/18 12:21; Admin Dose 0.125 MG; Start 04/02/18 at 13:00 Oxycodone/ Acetaminophen (Percocet (5/ 325)) 1 tab Q4H PRN PO MODERATE PAIN LEVEL 4-6 Last administered on 04/15/18 10:49; Admin Dose 1 TAB; Start 04/02/18 at 14:00 Bisacodyl (Dulcolax) 5 mg DAILY PRN PO CONSTIPATION Last administered on 04/05/18 20:24; Admin Dose 5 MG; Start 04/02/18 at 18:30 Collagenase (Santyl) 1 applic DAILY TOP Last administered on 04/17/18 08:07; Admin Dose 1 APPLIC; Start 04/03/18 at 11:00 Vancomycin HCl (Vanco Iv Per Pharmacy) VANCOMYCIN PER PHARMACY PER PROTOCOL XX ; Start 04/04/18 at 17:30 Furosemide (Lasix) 40 mg DAILY PO Last administered on 04/17/18 08:07; Admin Dose 40 MG; Start 04/06/18 at 09:00 Vancomycin HCl 750 mg/Sodium Chloride 150 ml @ 75 mls/hr Q24H IVPB Last administered on 04/16/18 21:20; Admin Dose 75 MLS/HR; Start 04/05/18 at 23:00 Mupirocin (Bactroban) 1 applic BID TOP Last administered on 1/1/19at 08:05; Admin Dose 1 APPLIC; Start 04/06/18 at 21:00 Metoprolol Succinate (Toprol Xl) 50 mg BID PO Last administered on 04/17/18at 08:06; Admin Dose 50 MG; Start 04/13/18 at 21:00 Oxycodone HCl (Roxicodone) 30 mg Q6H PRN PO PAIN LEVEL 6-10 Last administered on 04/17/18at 08:07; Admin Dose 30 MG; Start 04/13/18 at 16:00 Miscellaneous Information (*Rx Drug Level Order Reminder*) VANCOMYCIN TROUGH 04/17 AT 2200 ONCE ONCE XX ; Start 04/17/18 at 22:00; Stop 04/17/18 at 22:01 VTE Prophylaxis Risk score (from Ns)>0 risk: 9 SCD applied (from [facility] [place]): No SCD contraindication: bilateral amputee, other Lines/Catheters IV Catheter Type: Delatorre in Place: No Assessment/Plan Hospital Course Subjective No new acute complaints, wound continues to drain Objective Physical exam General: Patient is laying in bed and answers questions appropriately Mentation: Patient is alert and oriented 4, Head: Normocephalic atraumatic Eyes: EOMI, pupils reactive to light Neck: Supple, nontender, midline Respiratory: Clear to auscultation bilaterally Cardiovascular: regular rate, no obvious murmurs Gastrointestinal: non-tender to palpation, bowel sounds heard. Neurological: Moves all extremities spontaneously Musculoskeletal: Bilateral AKA Assessment/Plan 1. Acute infection in right thigh s/p amputation at [facility] - IR drained large amount of pus from right stump and sent for cultures. Awaiting results - Discussed case with vascular who is recommending patient return to [facility] for intervention on right stump given operation was performed there. - Spoke with Ortho about drainage of abscess and stated if not in bone or joint, would defer to General surgery. - General surgery consulted and requested CTA. CTA resulted with no findings that differ from previous imaging studies - ID on board and appreciate recommendations. Will continue current antibiotics and await cultures from abscess - Pain management on board and appreciate consultation. - LE US negative for DVT. 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 Discussed with vascular, Dr. Rodríguez, who said it was chronic and will need to follow up with outpatient clinic at [facility] since RLE amputation was performed there. - Dr. Sloan, CT surgery asked to eval patient's need for acute inpatient intervention at tertiary care center vs outpatient follow up, pending consult. - PT/OT on board 2. leukocytosis- trending down - ID on board and appreciate recommendations 3. Acute on chronic systolic heart failure- resolved - Cardiology consultation appreciated. - Echo results noted from prior admission with EF 20% 4. Wounds on elbows and sacrum - wound consultation appreciated 5. CAD - continue all home medications - stable 6. b/l AKA secondary to PVD 7. Episode of sustained vtach - monitor - Cardiology on board and continues to adjust medications as needed 8. Disposition - Awaiting cultures from right stump aspiration - Dr. Sloan, CT surgery asked to eval patient's need for acute inpatient intervention at tertiary care center vs outpatient follow up, pending consult. ZACH SIMON Apr 17, 2018 13:24
--- NOTE | 2018-04-17 16:20 | CONS ---
Date/Time of Note Date/Time of Note DATE: 04/17/18 TIME: 16:16 Assessment/Plan Assessment/Plan Hospital Course ID PROGRESS NOTE CURRENT ABX: DAY # => Vanco IV s/p Cefepime 04/17/18 0426 04/17/18 0426 24H INTERVAL SUMMARY * Sleeping today -- no new issues, VSS, NAD, no complaints * POD #5-> s/p Satisfactory ultrasound-guided aspiration of right lower extremity fluid collection (STUMP). * 04/12/18 Organism 1 METHICILLIN RESISTANT S.AUREUS QUANTITY 1+ . MULTI DRUG RESISTANT ORGANISM MRSA M.I.C. RX --------- --- CEFAZOLIN R CIPROFLOXACIN >=8 R CLINDAMYCIN <=0.25 S DOXYCYCLINE S ERYTHROMYCIN >=8 R LEVOFLOXACIN >=8 R OXACILLIN >=4 R PENICILLIN-G >=0.5 R RIFAMPIN <=0.5 S VANCOMYCIN <=0.5 S TRIMETHOPRIM/SULFAMETHOXAZOLE <=10 S * 04/10/18 MRI RIGHT STUMP: Allowing for these limitations there appears to be soft tissue edema surrounding the femur from the mid thigh to the amputation site concerning for soft tissue infection.Question more focal appearing fluid collection at the amputation site which could represent an abscess versus seroma. MICRO * (+)MRSA * Urine Cx (+)CoNS * 04/12/18 WOUND CULTURE Preliminary Organism 1 STAPHYLOCOCCUS AUREUS QUANTITY 1+ PHYSICAL EXAMINATION: GENERAL: Afebrile, VSS, HEENT: AT, NC, anicteric NECK: Supple, trach CHEST: Equal chest rise bilaterally, without dyspnea on observation HEART: Pulse RRR ABDOMEN: Soft / NT EXTREMITIES: BLEXT AKA Stumps -- see photos SKIN: No rash, no diaphoresis ID ASSESSMENT 62 yo M admit with: 1. s/p Sepsis on admission w/Fevers, tachycardia, leukocytosis due to #2 2. Persistent leukocytosis secondary to right lower extremity stump abscess * 04/12/18 Organism 1 METHICILLIN RESISTANT S.AUREUS QUANTITY 1+ 3. COPD 4. Substance abuse=> Urine tox (+)Opioids/(+)Cocaine 5. Multiple wounds and pressure sores 6. 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 CV DX: CAD, H/O CABG, H/O FL, s/p acute CHF decompensation 8. Diabetes w/ complication of peripheral neuropathy (+)MRSA Nares -> Bactroban ABX ALLERGIES: NKDA INVASIVES: PI CURRENT ABX: DAY ==Vanco IV s/p + Cefepime ID RECOMMENDATIONS/PLAN: Continue Vanco IV x 8 weeks followed by lifelong ABX suppressive Tx with Doxycycline 50-100mg po BID Is he a candidate for STUMP REVISION? . . Result Diagram: 04/17/1842504/17/186 Results 24hrs Laboratory Tests Test 04/17/18 04:26 White Blood Count 12.2 #H Red Blood Count 4.34 L Hemoglobin 10.1 L Hematocrit 31.8 L Mean Corpuscular Volume 73.3 L Mean Corpuscular Hemoglobin 23.3 L Mean Corpuscular Hemoglobin Concent 31.8 L Red Cell Distribution Width 20.5 H Platelet Count 516 H Mean Platelet Volume 10.9 H Immature Granulocytes % 0.700 H Neutrophils % 75.6 Lymphocytes % 13.7 L Monocytes % 9.1 Eosinophils % 0.7 Basophils % 0.2 Nucleated Red Blood Cells % 0.0 Immature Granulocytes # 0.090 H Neutrophils # 9.2 H Lymphocytes # 1.7 Monocytes # 1.1 H Eosinophils # 0.1 Basophils # 0.0 Nucleated Red Blood Cells # 0.0 Sodium Level 134 L Potassium Level 4.4 Chloride Level 100 Carbon Dioxide Level 26 Anion Gap 8 Blood Urea Nitrogen 22 H Creatinine 0.71 Est Glomerular Filtrat Rate mL/min > 60 Glucose Level 152 Calcium Level 9.1 Phosphorus Level 4.2 Magnesium Level 2.0 Consultation Date/Type/Reason Admit Date/Time Mar 29, 2018 at 07:48 Initial Consult Date Requesting Provider: SUSAN FAULKNER MD Exam/Review of Systems Vital Signs Vitals Vital Signs Date Temp Pulse Resp B/P (MAP) Pulse Ox O2 O2 Flow FiO2 Time Delivery Rate 04/17/18 95 16:00 04/17/18 98.3 20 96/63 (74) 99 15:10 04/16/18 21 20:08 04/14/18 Room Air 16:02 Intake and Output 04/16/18 04/16/18 04/17/18 1515:00 23:00 07:00 IntakeIntake Total 50 ml 900 ml 550 ml OutputOutput Total 1400 ml BalanceBalance 50 ml -500 ml 550 ml Medications Medications Current Medications Atorvastatin Calcium (Lipitor) 80 mg QHS PO Last administered on 04/16/18 21:18; Admin Dose 80 MG; Start 03/28/18 at 21:00 Budesonide (Pulmicort (Neb)) 0.5 mg BID RESP THERAPY HHN Last administered on 04/16/18 20:07; Admin Dose 0.5 MG; Start 03/28/18 at 20:00 Ferrous Gluconate (Fergon) 325 mg BID PO Last administered on 04/17/18 08:06; Admin Dose 325 MG; Start 03/28/18 at 21:00 Albuterol/ Ipratropium (Duoneb) 3 ml Q6HWA RESP THERAPY HHN Last administered on 04/16/18 20:07; Admin Dose 3 ML; Start 03/28/18 at 20:00 Montelukast Sodium (Singulair) 10 mg QHS PO Last administered on 04/16/18 21:18; Admin Dose 10 MG; Start 03/28/18 at 21:00 Pantoprazole (Protonix Tab) 40 mg DAILY@06 PO Last administered on 04/17/18 06:22; Admin Dose 40 MG; Start 03/29/18 at 06:00 Spironolactone (Aldactone) 25 mg DAILY PO Last administered on 04/17/18 08:06; Admin Dose 25 MG; Start 03/29/18 at 09:00 Tamsulosin HCl (Flomax) 0.4 mg HS PO Last administered on 04/16/18 21:18; Admin Dose 0.4 MG; Start 03/28/18 at 21:00 Tiotropium [place] (Spiriva) 1 inh DAILY INH Last administered on 04/17/18 08:06; Admin Dose 1 INH; Start 03/29/18 at 09:00 Albuterol (Proventil 0.083% (Neb)) 2.5 mg Q2H RESP THERAPY PRN HHN SHORTNESS OF BREATH Last administered on 04/06/18at 19:39; Admin Dose 2.5 MG; Start 03/28/18 at 16:30 IV Flush (NS 3 ml) 3 ml PER PROTOCOL IV ; Start 03/28/18 at 16:30 Ondansetron HCl (Zofran Inj) 4 mg Q6H PRN IV NAUSEA AND/OR VOMITING; Start 03/28/18 at 16:30 Nitroglycerin (Nitroglycerin (Sl Tab) 0.4 Mg) 1 tab Q5M PRN SL CHEST PAIN; Start 03/28/18 at 16:30 Acetaminophen (Tylenol Tab) 650 mg Q6H PRN PO PAIN LEVEL 1-3 OR FEVER Last administered on 04/13/18at 21:11; Admin Dose 650 MG; Start 03/28/18 at 16:30 Docusate Sodium (Colace) 100 mg Q12H PRN PO CONSTIPATION Last administered on 04/06/18at 22:50; Admin Dose 100 MG; Start 03/28/18 at 16:30 Magnesium Hydroxide (Milk Of Mag) 30 ml DAILY PRN PO CONSTIPATION Last administered on 04/06/18at 22:50; Admin Dose 30 ML; Start 03/28/18 at 16:30 Enoxaparin Sodium (Lovenox) 40 mg DAILY SC Last administered on 04/17/18 08:14; Admin Dose 40 MG; Start 03/29/18 at 09:00 Sacubitril/ Valsartan (Entresto 24 Mg-26 Mg) 1 tab BID PO Last administered on 04/17/18 08:07; Admin Dose 1 TAB; Start 03/28/18 at 21:00 Nystatin (Nystatin Powder) 1 applic BID TOP Last administered on 04/17/18 08:05; Admin Dose 1 APPLIC; Start 03/28/18 at 21:00 Cholecalciferol (Vitamin D) 2,000 unit BID PO Last administered on 04/17/18 08:08; Admin Dose 2,000 UNIT; Start 03/28/18 at 21:00 [facility] This patient rivera... PRN PRN XX soiled; Start 03/28/18 at 19:00 Senna/Docusate Sodium (Senokot-S) 2 tab DAILY PO Last administered on 04/17/18 08:07; Admin Dose 2 TAB; Start 03/30/18 at 09:00 Multivitamins Therapeutic (Theragran) 1 tab DAILY PO Last administered on 04/17/18 08:06; Admin Dose 1 TAB; Start 03/30/18 at 09:00 Gabapentin (Neurontin) 200 mg TID PO Last administered on 04/17/18 12:20; Admin Dose 200 MG; Start 03/30/18 at 13:00 Digoxin (Digoxin) 0.125 mg DAILY@13 PO Last administered on 04/17/18 12:21; Admin Dose 0.125 MG; Start 04/02/18 at 13:00 Oxycodone/ Acetaminophen (Percocet (5/ 325)) 1 tab Q4H PRN PO MODERATE PAIN LEVEL 4-6 Last administered on 04/15/18 10:49; Admin Dose 1 TAB; Start 04/02/18 at 14:00 Bisacodyl (Dulcolax) 5 mg DAILY PRN PO CONSTIPATION Last administered on 04/05/18at 20:24; Admin Dose 5 MG; Start 04/02/18 at 18:30 Collagenase (Santyl) 1 applic DAILY TOP Last administered on 04/17/18 08:07; Admin Dose 1 APPLIC; Start 04/03/18 at 11:00 Vancomycin HCl (Vanco Iv Per Pharmacy) VANCOMYCIN PER PHARMACY PER PROTOCOL XX ; Start 04/04/18 at 17:30 Furosemide (Lasix) 40 mg DAILY PO Last administered on 04/17/18 08:07; Admin Dose 40 MG; Start 04/06/18 at 09:00 Mupirocin (Bactroban) 1 applic BID TOP Last administered on 04/17/18 08:05; Admin Dose 1 APPLIC; Start 04/06/18 at 21:00 Metoprolol Succinate (Toprol Xl) 50 mg BID PO Last administered on 04/17/18 08:06; Admin Dose 50 MG; Start 04/13/18 at 21:00 Oxycodone HCl (Roxicodone) 30 mg Q6H PRN PO PAIN LEVEL 6-10 Last administered on 04/17/18 08:07; Admin Dose 30 MG; Start 04/13/18 at 16:00 Miscellaneous Information (*Rx Drug Level Order Reminder*) VANCOMYCIN TROUGH 04/17 AT 2200 ONCE ONCE XX ; Start 04/17/18 at 22:00; Stop 04/17/18 at 22:01 Vancomycin/Sodium Chloride 250 ml @ 125 mls/hr Q24H IVPB ; Start 04/17/18 at 23:00 MERCEDES KEARNEY NP Apr 17, 2018 16:20
[2018-04-17] MEDS: TAMSULOSIN (SR) 0.4 MG CAP PO SCH (21:04)
[2018-04-17] MEDS: ATORVASTATIN 80 MG TAB PO SCH (21:05)
[2018-04-17] MEDS: MONTELUKAST 10 MG TAB PO SCH (21:06)
[2018-04-17] MEDS: VANCOMYCIN 750 MG (PMX) 250 ML IVPB SCH (22:14)
[2018-04-18] VITALS (15 sets, daily range): BP systolic 91–126; BP diastolic 52–66; PULSE 86–99; RESP 18–20
[2018-04-18] MEDS: OXYCODONE/ACETAMINOPHEN (5/325) TAB PO PRN (00:52)
[2018-04-18] MEDS: PANTOPRAZOLE (EC) 40 MG TAB PO SCH (06:57)
[2018-04-18] MEDS: ALBUTEROL/IPRATROPIUM (NEB) 3 ML AMP HHN SCH ×3 (07:24→22:04)
[2018-04-18] MEDS: BUDESONIDE (NEB) 0.5MG/2ML AMP HHN SCH ×2 (07:25→22:04)
--- NOTE | 2018-04-18 08:27 | CONS ---
Date/Time of Note Date/Time of Note DATE: 04/18/18 TIME: 08:24 Assessment/Plan Assessment/Plan Hospital Course This is a very pleasant 62-year-old gentleman who looks older than his stated age. Who has severe peripheral vascular disease. Status post bilateral AKA. Other comorbid medical problems including history of coronary heart disease congestive heart failure I am asked to see for pain management consultation. Reason is a patient ran out of his pain control medications for which she was taking just OxyContin 30 mg every 6 hours and pain was controlled. His primary care physician refused to refill his medications today and he needs to be seen by pain management physician. Patient did not have an opportunity to schedule an appointment and presented to emergency room in pain. He admits as an outpatient he has been drinking using cocaine smoking marijuana to try and alleviate his discomfort in the interim. Reviewing medical records he has 2 sacral decubiti in addition also patient states that he has discontinued taking his Lasix prior to hospitalization. Patient's pain is primarily in his bila teral lower extremities radicular type pains lancinating rated 7/10 alleviated with his outpatient medication. Denies nausea vomiting itching globally disorientation constipation. Patient's home situation is such that he lives by himself he is able to do all of his activities of daily living if his pain is controlled. Other comorbid medical problems include history of chronic congestive heart failure, sacral decubiti, coronary heart disease Assessment/Plan Bilateral lower extremity lancinating neuropathic pain We will begin patient on gabapentin, will try and withhold the use of opioids but patient has been treated with OxyContin as an outpatient will have to re-sta rt his pain control medications as prior written by his primary care physician. Patient is to be followed by a pain management physician at the time of discharge. Acute chronic systolic heart failure Ejection fraction is 20% being followed by cardiology Sacral wounds Wound management following We will follow patient during his hospitalization we will add Neurontin onto his current regimen. At this time is no indication to add on a second neuropathic antiseizure medication for pain management. Continues to complain of bilateral pain both stumps right greater than left. High risk of opioid side effects including sedation. Patient became very somnolent on the Contin during the initial first week of hospitalization. We will continue to be as conservative as possible in spite of the fact that this patient has GingiMed acute pain Result Diagram: 04/18/18 0439 04/18/18 0439 Results 24hrs Laboratory Tests Test 04/17/18 22:10 04/18/18 04:39 Vancomycin Level Trough 15.0 White Blood Count 12.4 H Red Blood Count 4.51 L Hemoglobin 10.7 L Hematocrit 33.1 L Mean Corpuscular Volume 73.4 L Mean Corpuscular Hemoglobin 23.7 L Mean Corpuscular Hemoglobin Concent 32.3 Red Cell Distribution Width 20.8 H Platelet Count 502 H Mean Platelet Volume 10.3 Immature Granulocytes % 0.900 H Neutrophils % 69.2 Lymphocytes % 17.2 Monocytes % 11.6 H Eosinophils % 0.7 Basophils % 0.4 Nucleated Red Blood Cells % 0.0 Immature Granulocytes # 0.110 H Neutrophils # 8.6 H Lymphocytes # 2.1 Monocytes # 1.4 H Eosinophils # 0.1 Basophils # 0.1 Nucleated Red Blood Cells # 0.0 Sodium Level 138 Potassium Level 4.8 Chloride Level 97 Carbon Dioxide Level 31 Anion Gap 10 Blood Urea Nitrogen 24 H Creatinine 0.86 Est Glomerular Filtrat Rate mL/min > 60 Glucose Level 107 # Calcium Level 9.3 Phosphorus Level 4.5 Magnesium Level 2.0 Consultation Date/Type/Reason Admit Date/Time Mar 29, 2018 at 07:48 Hx of Present Illness Postdated note for visit 04/16/2018 Pain is still rated 5/10 with current opioid administration. Low-dose Dilaudid orally and OxyIR. Awaiting final decision so far is ongoing treatment for his right stump abscess. Past Medical History Medical History: congestive heart failure, coronary artery disease, deep vein thrombosis, other (PVD s/p b/l AKA, COPD) Medications Current Medications Atorvastatin Calcium (Lipitor) 80 mg QHS PO Last administered on 04/17/18at 21:05; Admin Dose 80 MG; Start 03/28/18 at 21:00 Budesonide (Pulmicort (Neb)) 0.5 mg BID RESP THERAPY HHN Last administered on 04/18/18 07:25; Admin Dose 0.5 MG; Start 03/28/18 at 20:00 Ferrous Gluconate (Fergon) 325 mg BID PO Last administered on 04/17/18at 21:04; Admin Dose 325 MG; Start 03/28/18 at 21:00 Albuterol/ Ipratropium (Duoneb) 3 ml Q6HWA RESP THERAPY HHN Last administered on 04/18/18 07:24; Admin Dose 3 ML; Start 03/28/18 at 20:00 Montelukast Sodium (Singulair) 10 mg QHS PO Last administered on 04/17/18 21:06; Admin Dose 10 MG; Start 03/28/18 at 21:00 Pantoprazole (Protonix Tab) 40 mg DAILY@06 PO Last administered on 04/18/18 06:57; Admin Dose 40 MG; Start 03/29/18 at 06:00 Spironolactone (Aldactone) 25 mg DAILY PO Last administered on 04/17/18 08:06; Admin Dose 25 MG; Start 03/29/18 at 09:00 Tamsulosin HCl (Flomax) 0.4 mg HS PO Last administered on 04/17/18 21:04; Admin Dose 0.4 MG; Start 03/28/18 at 21:00 Tiotropium [place] (Spiriva) 1 inh DAILY INH Last administered on 04/17/18 08:06; Admin Dose 1 INH; Start 03/29/18 at 09:00 Albuterol (Proventil 0.083% (Neb)) 2.5 mg Q2H RESP THERAPY PRN HHN SHORTNESS OF BREATH Last administered on 04/06/18at 19:39; Admin Dose 2.5 MG; Start 03/28/18 at 16:30 IV Flush (NS 3 ml) 3 ml PER PROTOCOL IV ; Start 03/28/18 at 16:30 Ondansetron HCl (Zofran Inj) 4 mg Q6H PRN IV NAUSEA AND/OR VOMITING; Start 03/28/18 at 16:30 Nitroglycerin (Nitroglycerin (Sl Tab) 0.4 Mg) 1 tab Q5M PRN SL CHEST PAIN; Start 03/28/18 at 16:30 Acetaminophen (Tylenol Tab) 650 mg Q6H PRN PO PAIN LEVEL 1-3 OR FEVER Last administered on 04/13/18at 21:11; Admin Dose 650 MG; Start 03/28/18 at 16:30 Docusate Sodium (Colace) 100 mg Q12H PRN PO CONSTIPATION Last administered on 04/06/18at 22:50; Admin Dose 100 MG; Start 12/12/18 at 16:30 Magnesium Hydroxide (Milk Of Mag) 30 ml DAILY PRN PO CONSTIPATION Last ad ministered on 04/06/18at 22:50; Admin Dose 30 ML; Start 03/28/18 at 16:30 Enoxaparin Sodium (Lovenox) 40 mg DAILY SC Last administered on 04/17/18 08:14; Admin Dose 40 MG; Start 03/29/18 at 09:00 Sacubitril/ Valsartan (Entresto 24 Mg-26 Mg) 1 tab BID PO Last administered on 04/17/18 21:04; Admin Dose 1 TAB; Start 03/28/18 at 21:00 Nystatin (Nystatin Powder) 1 applic BID TOP Last administered on 04/17/18 21:08; Admin Dose 1 APPLIC; Start 03/28/18 at 21:00 Cholecalciferol (Vitamin D) 2,000 unit BID PO Last administered on 04/17/18 21:00; Admin Dose 2,000 UNIT; Start 03/28/18 at 21:00 Miscellaneous Information (Pending [facility] Order For Wound Care) This patient rivera... PRN PRN XX soiled; Start 03/28/18 at 19:00 Senna/Docusate Sodium (Senokot-S) 2 tab DAILY PO Last administered on 04/17/18 08:07; Admin Dose 2 TAB; Start 03/30/18 at 09:00 Multivitamins Therapeutic (Theragran) 1 tab DAILY PO Last administered on 04/17/18 08:06; Admin Dose 1 TAB; Start 03/30/18 at 09:00 Gabapentin (Neurontin) 200 mg TID PO Last administered on 04/17/18 21:05; Admin Dose 200 MG; Start 03/30/18 at 13:00 Digoxin (Digoxin) 0.125 mg DAILY@13 PO Last administered on 04/17/18 12:21; Admin Dose 0.125 MG; Start 04/02/18 at 13:00 Oxycodone/ Acetaminophen (Percocet (5/ 325)) 1 tab Q4H PRN PO MODERATE PAIN LEVEL 4-6 Last administered on 04/18/18 00:52; Admin Dose 1 TAB; Start 04/02/18 at 14:00 Bisacodyl (Dulcolax) 5 mg DAILY PRN PO CONSTIPATION Last administered on 04/05/18at 20:24; Admin Dose 5 MG; Start 04/02/18 at 18:30 Collagenase (Santyl) 1 applic DAILY TOP Last administered on 04/17/18at 08:07; Admin Dose 1 APPLIC; Start 04/03/18 at 11:00 Vancomycin HCl (Vanco Iv Per Pharmacy) VANCOMYCIN PER PHARMACY PER PROTOCOL XX ; Start 04/04/18 at 17:30 Furosemide (Lasix) 40 mg DAILY PO Last administered on 04/17/18at 08:07; Admin Dose 40 MG; Start 04/06/18 at 09:00 Mupirocin (Bactroban) 1 applic BID TOP Last administered on 04/17/18 21:08; Admin Dose 1 APPLIC; Start 04/06/18 at 21:00 Metoprolol Succinate (Toprol Xl) 50 mg BID PO Last administered on 04/17/18 21:05; Admin Dose 50 MG; Start 04/13/18 at 21:00 Oxycodone HCl (Roxicodone) 30 mg Q6H PRN PO PAIN LEVEL 6-10 Last administered on 04/17/18 21:06; Admin Dose 30 MG; Start 04/13/18 at 16:00 Vancomycin/Sodium Chloride 250 ml @ 125 mls/hr Q24H IVPB Last administered on 04/17/18 22:14; Admin Dose 125 MLS/HR; Start 04/17/18 at 23:00 Allergies: Coded Allergies: tetracycline (Verified Allergy, Intermediate, RASH, 03/28/18) Past Surgical History Past Surgical Hx: no surgical history (Bilateral AKA amputation), other (b/l AKA, right graft) Social History Alcohol Use: heavy Smoking Status: Current every day smoker Drug Use: cocaine, marijuana Exam/Review of Systems Vital Signs Vitals Vital Signs Date Temp Pulse Resp B/P (MAP) Pulse Ox O2 O2 Flow FiO2 Time Delivery Rate 04/18/18 99 08:00 04/18/18 18 99 21 07:25 04/18/18 98.4 126/65 Nasal 07:22 (85) Cannula Intake and Output 04/17/18 04/17/18 04/18/18 1515:00 23:00 07:00 IntakeIntake Total 750 ml OutputOutput Total 2900 ml BalanceBalance -2150 ml Exam Psych: anxiety Respiratory: clear to auscultation, normal air movement Gastrointestinal: soft, nl liver, spleen, non-tender Medications Medications Current Medications Atorvastatin Calcium (Lipitor) 80 mg QHS PO Last administered on 04/17/18 21:05; Admin Dose 80 MG; Start 03/28/18 at 21:00 Budesonide (Pulmicort (Neb)) 0.5 mg BID RESP THERAPY HHN Last administered on 04/18/18 07:25; Admin Dose 0.5 MG; Start 03/28/18 at 20:00 Ferrous Gluconate (Fergon) 325 mg BID PO Last administered on 04/17/18 21:04; Admin Dose 325 MG; Start 03/28/18 at 21:00 Albuterol/ Ipratropium (Duoneb) 3 ml Q6HWA RESP THERAPY HHN Last administered on 04/18/18 07:24; Admin Dose 3 ML; Start 03/28/18 at 20:00 Montelukast Sodium (Singulair) 10 mg QHS PO Last administered on 04/17/18 21:06; Admin Dose 10 MG; Start 03/28/18 at 21:00 Pantoprazole (Protonix Tab) 40 mg DAILY@06 PO Last administered on 04/18/18 06:57; Admin Dose 40 MG; Start 03/29/18 at 06:00 Spironolactone (Aldactone) 25 mg DAILY PO Last administered on 04/17/18 08:06; Admin Dose 25 MG; Start 03/29/18 at 09:00 Tamsulosin HCl (Flomax) 0.4 mg HS PO Last administered on 04/17/18 21:04; Admin Dose 0.4 MG; Start 03/28/18 at 21:00 Tiotropium [place] (Spiriva) 1 inh DAILY INH Last administered on 04/17/18 08:06; Admin Dose 1 INH; Start 03/29/18 at 09:00 Albuterol (Proventil 0.083% (Neb)) 2.5 mg Q2H RESP THERAPY PRN HHN SHORTNESS OF BREATH Last administered on 04/06/18at 19:39; Admin Dose 2.5 MG; Start 03/28/18 at 16:30 IV Flush (NS 3 ml) 3 ml PER PROTOCOL IV ; Start 03/28/18 at 16:30 Ondansetron HCl (Zofran Inj) 4 mg Q6H PRN IV NAUSEA AND/OR VOMITING; Start 03/28/18 at 16:30 Nitroglycerin (Nitroglycerin (Sl Tab) 0.4 Mg) 1 tab Q5M PRN SL CHEST PAIN; Start 03/28/18 at 16:30 Acetaminophen (Tylenol Tab) 650 mg Q6H PRN PO PAIN LEVEL 1-3 OR FEVER Last administered on 04/13/18at 21:11; Admin Dose 650 MG; Start 03/28/18 at 16:30 Docusate Sodium (Colace) 100 mg Q12H PRN PO CONSTIPATION Last administered on 04/06/18 22:50; Admin Dose 100 MG; Start 03/28/18 at 16:30 Magnesium Hydroxide (Milk Of Mag) 30 ml DAILY PRN PO CONSTIPATION Last adm inistered on 04/06/18at 22:50; Admin Dose 30 ML; Start 03/28/18 at 16:30 Enoxaparin Sodium (Lovenox) 40 mg DAILY SC Last administered on 04/17/18 08:14; Admin Dose 40 MG; Start 03/29/18 at 09:00 Sacubitril/ Valsartan (Entresto 24 Mg-26 Mg) 1 tab BID PO Last administered on 04/17/18 21:04; Admin Dose 1 TAB; Start 03/28/18 at 21:00 Nystatin (Nystatin Powder) 1 applic BID TOP Last administered on 04/17/18 21:08; Admin Dose 1 APPLIC; Start 03/28/18 at 21:00 Cholecalciferol (Vitamin D) 2,000 unit BID PO Last administered on 04/17/18 21:00; Admin Dose 2,000 UNIT; Start 03/28/18 at 21:00 Miscellaneous Information (Pending Santyl Order For Wound Care) This patient rivera... PRN PRN XX soiled; Start 03/28/18 at 19:00 Senna/Docusate Sodium (Senokot-S) 2 tab DAILY PO Last administered on 04/17/18 08:07; Admin Dose 2 TAB; Start 03/30/18 at 09:00 Multivitamins Therapeutic (Theragran) 1 tab DAILY PO Last administered on 04/17/18 08:06; Admin Dose 1 TAB; Start 03/30/18 at 09:00 Gabapentin (Neurontin) 200 mg TID PO Last administered on 04/17/18 21:05; Admin Dose 200 MG; Start 03/30/18 at 13:00 Digoxin (Digoxin) 0.125 mg DAILY@13 PO Last administered on 04/17/18 12:21; Admin Dose 0.125 MG; Start 04/02/18 at 13:00 Oxycodone/ Acetaminophen (Percocet (5/ 325)) 1 tab Q4H PRN PO MODERATE PAIN LEVEL 4-6 Last administered on 04/18/18 00:52; Admin Dose 1 TAB; Start 04/02/18 at 14:00 Bisacodyl (Dulcolax) 5 mg DAILY PRN PO CONSTIPATION Last administered on 04/05/18 20:24; Admin Dose 5 MG; Start 04/02/18 at 18:30 Collagenase (Santyl) 1 applic DAILY TOP Last administered on 04/17/18 08:07; Admin Dose 1 APPLIC; Start 04/03/18 at 11:00 Vancomycin HCl (Vanco Iv Per Pharmacy) VANCOMYCIN PER PHARMACY PER PROTOCOL XX ; Start 04/04/18 at 17:30 Furosemide (Lasix) 40 mg DAILY PO Last administered on 04/17/18 08:07; Admin Dose 40 MG; Start 04/06/18 at 09:00 Mupirocin (Bactroban) 1 applic BID TOP Last administered on 04/17/18 21:08; Admin Dose 1 APPLIC; Start 04/06/18 at 21:00 Metoprolol Succinate (Toprol Xl) 50 mg BID PO Last administered on 04/17/18 21:05; Admin Dose 50 MG; Start 04/13/18 at 21:00 Oxycodone HCl (Roxicodone) 30 mg Q6H PRN PO PAIN LEVEL 6-10 Last administered on 04/17/18 21:06; Admin Dose 30 MG; Start 04/13/18 at 16:00 Vancomycin/Sodium Chloride 250 ml @ 125 mls/hr Q24H IVPB Last administered on 04/17/18 22:14; Admin Dose 125 MLS/HR; Start 04/17/18 at 23:00 LENIN CADENA Apr 18, 2018 08:27
[2018-04-18] MEDS: NYSTATIN 30 GM POWDER BTL TOP SCH ×2 (08:33→21:09)
[2018-04-18] MEDS: GABAPENTIN 100 MG CAP PO SCH ×3 (08:33→21:05)
[2018-04-18] MEDS: SPIRONOLACTONE 25 MG TAB PO SCH (08:33)
[2018-04-18] MEDS: FUROSEMIDE 40 MG TAB PO SCH (08:34)
[2018-04-18] MEDS: MULTIVITAMINS THERAPEUTIC TAB PO SCH (08:34)
[2018-04-18] MEDS: CHOLECALCIFEROL 2,000 UNIT CAP PO SCH ×2 (08:34→21:04)
[2018-04-18] MEDS: SACUBITRIL/VALSARTAN (24mg-26mg) TABLET PO SCH ×2 (08:34→21:04)
[2018-04-18] MEDS: FERROUS GLUCONATE (EC) 325 MG TAB PO SCH ×2 (08:34→21:04)
[2018-04-18] MEDS: SENNA/DOCUSATE NA (8.6MG/50MG) TAB PO SCH (08:34)
[2018-04-18] MEDS: METOPROLOL (XL) 50 MG TAB PO SCH ×2 (08:35→21:06)
[2018-04-18] MEDS: MUPIROCIN 2% 22 GM OINT TOP SCH ×2 (08:36→21:08)
[2018-04-18] MEDS: COLLAGENASE 5 GM (UD JAR) TOP SCH (08:36)
[2018-04-18] MEDS: TIOTROPIUM 18 MCG CAPSULE INHA DEV INH SCH (08:36)
[2018-04-18] MEDS: ENOXAPARIN 40 MG/0.4 ML SYG SC SCH (08:44)
[2018-04-18] MEDS: oxyCODONE 15 MG TAB PO PRN ×3 (08:51→21:08)
--- NOTE | 2018-04-18 11:04 | CONS ---
Date/Time of Note Date/Time of Note DATE: 04/18/18 TIME: 11:02 Assessment/Plan Assessment/Plan Hospital Course IMPRESSION: 1. Congestive heart failure exacerbation, systolic, acute on chronic. 2. Cardiomyopathy with severely depressed left ventricular ejection fraction with last being approximately 20%. 3. Hypertension. 4. Dyslipidemia. 5. History of substance abuse. 6. Chronic obstructive pulmonary disease. 7. Bilateral lower extremity amputation and presenting with right stump pain.- s/p IR guidede drainage of collection seen by LE CT 8. Questionable history of intracardiac thrombus not seen by most recent echocardiogram dated 01/06/2018, but with severely depressed ejection fraction at that time of 20%. 9. Tobacco intake. 10. SVT-regular recurrent to 160-180. Broke with PO BB. Also questionable WCT right before. Had recurrent SVT o/n 04/01.Slowly improving S tach 11.Fluid collection at stump site by CTA Recc: -Tele -Continue entresto/BB as tolerated -Continue aldactone -Continue lasix daily -Continue bronchodilators/abx's and f/u cx data -Continue po digoxin -pain control -ongoing surgical eval of limb paini/fluid collection Result Diagram: 04/18/18 0439 04/18/18 0439 Results 24hrs Laboratory Tests Test 04/17/18 22:10 04/18/18 04:39 Vancomycin Level Trough 15.0 White Blood Count 12.4 H Red Blood Count 4.51 L Hemoglobin 10.7 L Hematocrit 33.1 L Mean Corpuscular Volume 73.4 L Mean Corpuscular Hemoglobin 23.7 L Mean Corpuscular Hemoglobin Concent 32.3 Red Cell Distribution Width 20.8 H Platelet Count 502 H Mean Platelet Volume 10.3 Immature Granulocytes % 0.900 H Neutrophils % 69.2 Lymphocytes % 17.2 Monocytes % 11.6 H Eosinophils % 0.7 Basophils % 0.4 Nucleated Red Blood Cells % 0.0 Immature Granulocytes # 0.110 H Neutrophils # 8.6 H Lymphocytes # 2.1 Monocytes # 1.4 H Eosinophils # 0.1 Basophils # 0.1 Nucleated Red Blood Cells # 0.0 Sodium Level 138 Potassium Level 4.8 Chloride Level 97 Carbon Dioxide Level 31 Anion Gap 10 Blood Urea Nitrogen 24 H Creatinine 0.86 Est Glomerular Filtrat Rate mL/min > 60 Glucose Level 107 # Calcium Level 9.3 Phosphorus Level 4.5 Magnesium Level 2.0 Consultation Date/Type/Reason Admit Date/Time Mar 29, 2018 at 07:48 Initial Consult Date 03/29/18 Type of Consult cardiology Reason for Consultation CHF Requesting Provider: SUSAN FAULKNER MD Exam/Review of Systems Vital Signs Vitals Vital Signs Date Temp Pulse Resp B/P (MAP) Pulse Ox O2 O2 Flow FiO2 Time Delivery Rate 04/18/18 95 09:35 04/18/18 18 99 21 07:25 04/18/18 98.4 126/65 Nasal 07:22 (85) Cannula Intake and Output 04/17/18 04/17/18 04/18/18 1515:00 23:00 07:00 IntakeIntake Total 750 ml OutputOutput Total 2900 ml BalanceBalance -2150 ml Exam Review of Systems: CONSTITUTIONAL: No fevers, chills. PULMONARY: No sob CARDIOVASCULAR: No chest pain/palpitations GASTROINTESTINAL: No nausea/vomiting. GENITOURINARY: No hematuria/dysuria. MUSCULOSKELETAL: No myagias/arthalgias. PSYCHIATRIC: The patient denies depression. NEUROLOGIC: No weakness Constitutional: alert, oriented Psych: no complaints Head: normocephalic ENMT: mucosa pink and moist Neck: supple, jvd (9 cm water) Respiratory: diminished breath sounds Cardiovascular: regular rate and rhythm Gastrointestinal: soft, non-tender Musculoskeletal: muscle tone Extremities: edema (none) Neurological: other (No focal deficits) Medications Medications Current Medications Atorvastatin Calcium (Lipitor) 80 mg QHS PO Last administered on 04/17/18 21: 05; Admin Dose 80 MG; Start 03/28/18 at 21:00 Budesonide (Pulmicort (Neb)) 0.5 mg BID RESP THERAPY HHN Last administered on 04/18/18 07:25; Admin Dose 0.5 MG; Start 03/28/18 at 20:00 Ferrous Gluconate (Fergon) 325 mg BID PO Last administered on 04/18/18 08:34; Admin Dose 325 MG; Start 03/28/18 at 21:00 Albuterol/ Ipratropium (Duoneb) 3 ml Q6HWA RESP THERAPY HHN Last administered on 04/18/18 07:24; Admin Dose 3 ML; Start 03/28/18 at 20:00 Montelukast Sodium (Singulair) 10 mg QHS PO Last administered on 04/17/18 21:06; Admin Dose 10 MG; Start 03/28/18 at 21:00 Pantoprazole (Protonix Tab) 40 mg DAILY@06 PO Last administered on 04/18/18 06:57; Admin Dose 40 MG; Start 03/29/18 at 06:00 Spironolactone (Aldactone) 25 mg DAILY PO Last administered on 04/18/18 08:33; Admin Dose 25 MG; Start 03/29/18 at 09:00 Tamsulosin HCl (Flomax) 0.4 mg HS PO Last administered on 04/17/18 21:04; Admin Dose 0.4 MG; Start 03/28/18 at 21:00 Tiotropium [place] (Spiriva) 1 inh DAILY INH Last administered on 04/18/18 08:36; Admin Dose 1 INH; Start 03/29/18 at 09:00 Albuterol (Proventil 0.083% (Neb)) 2.5 mg Q2H RESP THERAPY PRN HHN SHORTNESS OF BREATH Last administered on 04/06/18at 19:39; Admin Dose 2.5 MG; Start 03/28/18 at 16:30 IV Flush (NS 3 ml) 3 ml PER PROTOCOL IV ; Start 03/28/18 at 16:30 Ondansetron HCl (Zofran Inj) 4 mg Q6H PRN IV NAUSEA AND/OR VOMITING; Start 03/28/18 at 16:30 Nitroglycerin (Nitroglycerin (Sl Tab) 0.4 Mg) 1 tab Q5M PRN SL CHEST PAIN; Start 03/28/18 at 16:30 Acetaminophen (Tylenol Tab) 650 mg Q6H PRN PO PAIN LEVEL 1-3 OR FEVER Last administered on 04/13/18at 21:11; Admin Dose 650 MG; Start 03/28/18 at 16:30 Docusate Sodium (Colace) 100 mg Q12H PRN PO CONSTIPATION Last administered on 04/06/18 22:50; Admin Dose 100 MG; Start 03/28/18 at 16:30 Magnesium Hydroxide (Milk Of Mag) 30 ml DAILY PRN PO CONSTIPATION Last administered on 04/06/18 22:50; Admin Dose 30 ML; Start 03/28/18 at 16:30 Enoxaparin Sodium (Lovenox) 40 mg DAILY SC Last administered on 04/18/18 08:44; Admin Dose 40 MG; Start 03/29/18 at 09:00 Sacubitril/ Valsartan (Entresto 24 Mg-26 Mg) 1 tab BID PO Last administered on 04/18/18 08:34; Admin Dose 1 TAB; Start 03/28/18 at 21:00 Nystatin (Nystatin Powder) 1 applic BID TOP Last administered on 04/18/18 08:33; Admin Dose 1 APPLIC; Start 03/28/18 at 21:00 Cholecalciferol (Vitamin D) 2,000 unit BID PO Last administered on 04/18/18 08:34; Admin Dose 2,000 UNIT; Start 03/28/18 at 21:00 Miscellaneous Information (Pending Santyl Order For Wound Care) This patient rivera... PRN PRN XX soiled; Start 03/28/18 at 19:00 Senna/Docusate Sodium (Senokot-S) 2 tab DAILY PO Last administered on 04/18/18 08:34; Admin Dose 2 TAB; Start 03/30/18 at 09:00 Multivitamins Therapeutic (Theragran) 1 tab DAILY PO Last administered on 04/18/18 08:34; Admin Dose 1 TAB; Start 03/30/18 at 09:00 Gabapentin (Neurontin) 200 mg TID PO Last administered on 04/18/18 08:33; Admin Dose 200 MG; Start 03/30/18 at 13:00 Digoxin (Digoxin) 0.125 mg DAILY@13 PO Last administered on 04/17/18 12:21; Admin Dose 0.125 MG; Start 04/02/18 at 13:00 Bisacodyl (Dulcolax) 5 mg DAILY PRN PO CONSTIPATION Last administered on 04/05/18at 20:24; Admin Dose 5 MG; Start 04/02/18 at 18:30 Collagenase (Santyl) 1 applic DAILY TOP Last administered on 04/18/18 08:36; Admin Dose 1 APPLIC; Start 04/03/18 at 11:00 Vancomycin HCl (Vanco Iv Per Pharmacy) VANCOMYCIN PER PHARMACY PER PROTOCOL XX ; Start 04/04/18 at 17:30 Furosemide (Lasix) 40 mg DAILY PO Last administered on 04/18/18 08:34; Admin Dose 40 MG; Start 04/06/18 at 09:00 Mupirocin (Bactroban) 1 applic BID TOP Last administered on 04/18/18 08:36; Admin Dose 1 APPLIC; Start 04/06/18 at 21:00 Metoprolol Succinate (Toprol Xl) 50 mg BID PO Last administered on 04/18/18 08:35; Admin Dose 50 MG; Start 04/13/18 at 21:00 Oxycodone HCl (Roxicodone) 30 mg Q6H PRN PO PAIN LEVEL 6-10 Last administered on 04/18/18 08:51; Admin Dose 30 MG; Start 04/13/18 at 16:00 Vancomycin/Sodium Chloride 250 ml @ 125 mls/hr Q24H IVPB Last administered on 04/17/18 22:14; Admin Dose 125 MLS/HR; Start 04/17/18 at 23:00 VIVIAN PRINCE Apr 18, 2018 11:04
[2018-04-18] MEDS: DIGOXIN 0.125 MG TAB PO SCH (13:08)
--- NOTE | 2018-04-18 14:06 | PN ---
Date/Time of Note Date/Time of Note DATE: 04/18/18 TIME: 14:04 Objective Vitals Vital Signs Date Temp Pulse Resp B/P (MAP) Pulse Ox O2 O2 Flow FiO2 Time Delivery Rate 04/18/18 82 18 99 21 13:21 04/18/18 98.3 109/64 Room Air 12:01 (79) Intake and Output 04/17/18 04/17/18 04/18/18 1515:00 23:00 07:00 IntakeIntake Total 750 ml OutputOutput Total 2900 ml BalanceBalance -2150 ml Results Result Diagram: 04/18/189 04/18/189 Medications Medications Current Medications Atorvastatin Calcium (Lipitor) 80 mg QHS PO Last administered on 04/17/18 21:05; Admin Dose 80 MG; Start 03/28/18 at 21:00 Budesonide (Pulmicort (Neb)) 0.5 mg BID RESP THERAPY HHN Last administered on 04/18/18 07:25; Admin Dose 0.5 MG; Start 03/28/18 at 20:00 Ferrous Gluconate (Fergon) 325 mg BID PO Last administered on 04/18/18 08:34; Admin Dose 325 MG; Start 03/28/18 at 21:00 Albuterol/ Ipratropium (Duoneb) 3 ml Q6HWA RESP THERAPY HHN Last administered on 04/18/18 13:21; Admin Dose 3 ML; Start 03/28/18 at 20:00 Montelukast Sodium (Singulair) 10 mg QHS PO Last administered on 04/17/18 21:06; Admin Dose 10 MG; Start 03/28/18 at 21:00 Pantoprazole (Protonix Tab) 40 mg DAILY@06 PO Last administered on 04/18/18 06:57; Admin Dose 40 MG; Start 03/29/18 at 06:00 Spironolactone (Aldactone) 25 mg DAILY PO Last administered on 04/18/18 08:33; Admin Dose 25 MG; Start 03/29/18 at 09:00 Tamsulosin HCl (Flomax) 0.4 mg HS PO Last administered on 04/17/18 21:04; Admin Dose 0.4 MG; Start 03/28/18 at 21:00 Tiotropium [place] (Spiriva) 1 inh DAILY INH Last administered on 04/18/18 08:36; Admin Dose 1 INH; Start 03/29/18 at 09:00 Albuterol (Proventil 0.083% (Neb)) 2.5 mg Q2H RESP THERAPY PRN HHN SHORTNESS OF BREATH Last administered on 04/06/18 19:39; Admin Dose 2.5 MG; Start 03/28/18 at 16:30 IV Flush (NS 3 ml) 3 ml PER PROTOCOL IV ; Start 03/28/18 at 16:30 Ondansetron HCl (Zofran Inj) 4 mg Q6H PRN IV NAUSEA AND/OR VOMITING; Start 03/28/18 at 16:30 Nitroglycerin (Nitroglycerin (Sl Tab) 0.4 Mg) 1 tab Q5M PRN SL CHEST PAIN; Start 03/28/18 at 16:30 Acetaminophen (Tylenol Tab) 650 mg Q6H PRN PO PAIN LEVEL 1-3 OR FEVER Last administered on 04/13/18at 21:11; Admin Dose 650 MG; Start 03/28/18 at 16:30 Docusate Sodium (Colace) 100 mg Q12H PRN PO CONSTIPATION Last administered on 04/06/18 22:50; Admin Dose 100 MG; Start 03/28/18 at 16:30 Magnesium Hydroxide (Milk Of Mag) 30 ml DAILY PRN PO CONSTIPATION Last administered on 04/06/18 22:50; Admin Dose 30 ML; Start 03/28/18 at 16:30 Enoxaparin Sodium (Lovenox) 40 mg DAILY SC Last administered on 04/18/18 08:44; Admin Dose 40 MG; Start 03/29/18 at 09:00 Sacubitril/ Valsartan (Entresto 24 Mg-26 Mg) 1 tab BID PO Last administered on 04/18/18 08:34; Admin Dose 1 TAB; Start 03/28/18 at 21:00 Nystatin (Nystatin Powder) 1 applic BID TOP Last administered on 04/18/18 08:33; Admin Dose 1 APPLIC; Start 03/28/18 at 21:00 Cholecalciferol (Vitamin D) 2,000 unit BID PO Last administered on 04/18/18 08:34; Admin Dose 2,000 UNIT; Start 03/28/18 at 21:00 Miscellaneous Information (Pending Santyl Order For Wound Care) This patient rivera. .. PRN PRN XX soiled; Start 03/28/18 at 19:00 Senna/Docusate Sodium (Senokot-S) 2 tab DAILY PO Last administered on 04/18/18 08:34; Admin Dose 2 TAB; Start 03/30/18 at 09:00 Multivitamins Therapeutic (Theragran) 1 tab DAILY PO Last administered on 04/18/18 08:34; Admin Dose 1 TAB; Start 03/30/18 at 09:00 Gabapentin (Neurontin) 200 mg TID PO Last administered on 04/18/18 13:08; Admin Dose 200 MG; Start 03/30/18 at 13:00 Digoxin (Digoxin) 0.125 mg DAILY@13 PO Last administered on 04/18/18 13:08; Admin Dose 0.125 MG; Start 04/02/18 at 13:00 Bisacodyl (Dulcolax) 5 mg DAILY PRN PO CONSTIPATION Last administered on 04/05/18at 20:24; Admin Dose 5 MG; Start 04/02/18 at 18:30 Collagenase (Santyl) 1 applic DAILY TOP Last administered on 04/18/18 08:36; Admin Dose 1 APPLIC; Start 04/03/18 at 11:00 Vancomycin HCl (Vanco Iv Per Pharmacy) VANCOMYCIN PER PHARMACY PER PROTOCOL XX ; Start 04/04/18 at 17:30 Furosemide (Lasix) 40 mg DAILY PO Last administered on 04/18/18 08:34; Admin Dose 40 MG; Start 04/06/18 at 09:00 Mupirocin (Bactroban) 1 applic BID TOP Last administered on 04/18/18 08:36; Admin Dose 1 APPLIC; Start 04/06/18 at 21:00 Metoprolol Succinate (Toprol Xl) 50 mg BID PO Last administered on 04/18/18 08:35; Admin Dose 50 MG; Start 04/13/18 at 21:00 Oxycodone HCl (Roxicodone) 30 mg Q6H PRN PO PAIN LEVEL 6-10 Last administered on 04/18/18 08:51; Admin Dose 30 MG; Start 04/13/18 at 16:00 Vancomycin/Sodium Chloride 250 ml @ 125 mls/hr Q24H IVPB Last administered on 04/17/18at 22:14; Admin Dose 125 MLS/HR; Start 04/17/18 at 23:00 VTE Prophylaxis Risk score (from Ns)>0 risk: 5 SCD applied (from Ns): No SCD contraindication: other Lines/Catheters IV Catheter Type: Delatorre in Place: No Assessment/Plan Hospital Course Subjective No new acute complaints, Objective Physical exam General: Patient is laying in bed and answers questions appropriately Mentation: Patient is alert and oriented 4, Head: Normocephalic atraumatic Eyes: EOMI, pupils reactive to light Neck: Supple, nontender, midline Respiratory: Clear to auscultation bilaterally Cardiovascular: regular rate, no obvious murmurs Gastrointestinal: non-tender to palpation, bowel sounds heard. Neurological: Moves all extremities spontaneously Musculoskeletal: Bilateral AKA Assessment/Plan 1. Acute infection in right thigh s/p amputation at [facility] - IR drained large amount of pus from right stump and sent for cultures. Rubina iting results - Discussed case with vascular who is recommending patient return to [facility] for intervention on right stump given operation was performed there. - Spoke with Ortho about drainage of abscess and stated if not in bone or joint, would defer to General surgery. - General surgery consulted and requested CTA. CTA resulted with no findings that differ from previous imaging studies - ID on board and appreciate recommendations. Will continue current antibiotics and await cultures from abscess - Pain management on board and appreciate consultation. - LE US negative for DVT. 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 Discussed with vascular, Dr. Rodríguez, who said it was chronic and will need to follow up with outpatient clinic at [facility] since RLE amputation was performed there. - Dr. Sloan, CT surgery asked to eval patient's need for acute inpatient intervention at tertiary care center vs outpatient follow up, pending consult. - PT/OT on board 2. leukocytosis- trending down - ID on board and appreciate recommendations 3. Acute on chronic systolic heart failure- resolved - Cardiology consultation appreciated. - Echo results noted from prior admission with EF 20% 4. Wounds on elbows and sacrum - wound consultation appreciated 5. CAD - continue all home medications - stable 6. b/l AKA secondary to PVD 7. Episode of sustained vtach - monitor - Cardiology on board and continues to adjust medications as needed 8. Disposition - Awaiting cultures from right stump aspiration - Dr. Sloan, CT surgery asked to eval patient's need for acute inpatient intervention at tertiary care center vs outpatient follow up, pending consult. -Dr. Rodriguez, general surgery believes this is muscle necrosis and the only treatment for patient may be a higher up amputation. will await Dr. Sloan eval before making a decision ZACH SIMON Apr 18, 2018 14:06
--- NOTE | 2018-04-18 14:15 | CONS ---
Date/Time of Note Date/Time of Note DATE: 04/18/18 TIME: 14:13 Assessment/Plan Assessment/Plan Hospital Course Clinically unchanged, alert looks comfortable no fevers overnight WBC 12.4 H&H 10.7 and 33.1 platelets 502 BUN 24 creatinine 0.86 Microbiology: Right thigh aspirated fluid culture grew MRSA Antimicrobials: Patient is on IV vancomycin he is also getting topical Bactroban to nares Allergy: Tetracycline Physical examination: Well-nourished well-developed elderly -[place] man who is in no distress. Head atraumatic normocephalic neck is supple chest rise symmetrical breath sounds diminished bases. Heart: S1-S2. Abdomen soft bowel sounds present. Extremities without cyanosis patient has bilateral above-knee amputation, right stump painful to touch with some fluctuance and swelling. Skin: Patient has multiple pressure sores Assessment: 1. Persistent leukocytosis secondary to right lower extremity stump abscess 2. Status post recurrent CHF/COPD exacerbation 3. Severe PAD 4. Substance abuse 5. Multiple wounds and pressure sores 6. History of methicillin-resistant Staphylococcus aureus infected graft, status post debridement back in 06/2017, per patient, the rest of the graft was removed at [facility], he completed IV vancomycin back in January 7. History of CABG and NC 8. Diabetes 9. MRSA nares colonization 10. Medical noncompliance with chronic tobacco use Plan: Clinically unchanged, stable, surgical recommendations noted, pending vascular evaluation, continue antibiotics, anticipate treating with oral doxycycline lifelong DW pt Result Diagram: 04/18/18 0439 04/18/18 0439 Results 24hrs Laboratory Tests Test 04/17/18 22:10 04/18/18 04:39 04/18/18 12:50 Vancomycin Level Trough 15.0 White Blood Count 12.4 H Red Blood Count 4.51 L Hemoglobin 10.7 L Hematocrit 33.1 L Mean Corpuscular Volume 73.4 L Mean Corpuscular Hemoglobin 23.7 L Mean Corpuscular Hemoglobin Concent 32.3 Red Cell Distribution Width 20.8 H Platelet Count 502 H Mean Platelet Volume 10.3 Immature Granulocytes % 0.900 H Neutrophils % 69.2 Lymphocytes % 17.2 Monocytes % 11.6 H Eosinophils % 0.7 Basophils % 0.4 Nucleated Red Blood Cells % 0.0 Immature Granulocytes # 0.110 H Neutrophils # 8.6 H Lymphocytes # 2.1 Monocytes # 1.4 H Eosinophils # 0.1 Basophils # 0.1 Nucleated Red Blood Cells # 0.0 Sodium Level 138 Potassium Level 4.8 Chloride Level 97 Carbon Dioxide Level 31 Anion Gap 10 Blood Urea Nitrogen 24 H Creatinine 0.86 Est Glomerular Filtrat Rate mL/min > 60 Glucose Level 107 # Calcium Level 9.3 Phosphorus Level 4.5 Magnesium Level 2.0 Urine Color YELLOW Urine Clarity CLEAR Urine pH 6.0 Urine Specific [place] 1.013 Urine Ketones NEGATIVE Urine Nitrite NEGATIVE Urine Bilirubin NEGATIVE Urine Urobilinogen 2+ H Urine Leukocyte Esterase NEGATIVE Urine Hemoglobin NEGATIVE Urine Glucose NEGATIVE Urine Total Protein NEGATIVE Consultation Date/Type/Reason Admit Date/Time Mar 29, 2018 at 07:48 Initial Consult Date Type of Consult ID Requesting Provider: SUSAN FAULKNER MD Exam/Review of Systems Vital Signs Vitals Vital Signs Date Temp Pulse Resp B/P (MAP) Pulse Ox O2 O2 Flow FiO2 Time Delivery Rate 04/18/18 82 18 99 21 13:21 04/18/18 98.3 109/64 Room Air 12:01 (79) Intake and Output 04/17/18 04/17/18 04/18/18 1515:00 23:00 07:00 IntakeIntake Total 750 ml OutputOutput Total 2900 ml BalanceBalance -2150 ml Medications Medications Current Medications Atorvastatin Calcium (Lipitor) 80 mg QHS PO Last administered on 04/17/18 21:05; Admin Dose 80 MG; Start 03/28/18 at 21:00 Budesonide (Pulmicort (Neb)) 0.5 mg BID RESP THERAPY HHN Last administered on 04/18/18 07:25; Admin Dose 0.5 MG; Start 03/28/18 at 20:00 Ferrous Gluconate (Fergon) 325 mg BID PO Last administered on 04/18/18 08:34; Admin Dose 325 MG; Start 03/28/18 at 21:00 Albuterol/ Ipratropium (Duoneb) 3 ml Q6HWA RESP THERAPY HHN Last administered on 04/18/18 13:21; Admin Dose 3 ML; Start 03/28/18 at 20:00 Montelukast Sodium (Singulair) 10 mg QHS PO Last administered on 04/17/18 21:06; Admin Dose 10 MG; Start 03/28/18 at 21:00 Pantoprazole (Protonix Tab) 40 mg DAILY@06 PO Last administered on 04/18/18 06:57; Admin Dose 40 MG; Start 03/29/18 at 06:00 Spironolactone (Aldactone) 25 mg DAILY PO Last administered on 04/18/18 08:33; Admin Dose 25 MG; Start 03/29/18 at 09:00 Tamsulosin HCl (Flomax) 0.4 mg HS PO Last administered on 04/17/18 21:04; Admin Dose 0.4 MG; Start 03/28/18 at 21:00 Tiotropium [place] (Spiriva) 1 inh DAILY INH Last administered on 04/18/18 08:36; Admin Dose 1 INH; Start 03/29/18 at 09:00 Albuterol (Proventil 0.083% (Neb)) 2.5 mg Q2H RESP THERAPY PRN HHN SHORTNESS OF BREATH Last administered on 04/06/18at 19:39; Admin Dose 2.5 MG; Start 03/28/18 at 16:30 IV Flush (NS 3 ml) 3 ml PER PROTOCOL IV ; Start 03/28/18 at 16:30 Ondansetron HCl (Zofran Inj) 4 mg Q6H PRN IV NAUSEA AND/OR VOMITING; Start 03/28/18 at 16:30 Nitroglycerin (Nitroglycerin (Sl Tab) 0.4 Mg) 1 tab Q5M PRN SL CHEST PAIN; Start 03/28/18 at 16:30 Acetaminophen (Tylenol Tab) 650 mg Q6H PRN PO PAIN LEVEL 1-3 OR FEVER Last administered on 04/13/18at 21:11; Admin Dose 650 MG; Start 03/28/18 at 16:30 Docusate Sodium (Colace) 100 mg Q12H PRN PO CONSTIPATION Last administered on 04/06/18at 22:50; Admin Dose 100 MG; Start 03/28/18 at 16:30 Magnesium Hydroxide (Milk Of Mag) 30 ml DAILY PRN PO CONSTIPATION Last administered on 04/06/18at 22:50; Admin Dose 30 ML; Start 03/28/18 at 16:30 Enoxaparin Sodium (Lovenox) 40 mg DAILY SC Last administered on 04/18/18 08:44; Admin Dose 40 MG; Start 03/29/18 at 09:00 Sacubitril/ Valsartan (Entresto 24 Mg-26 Mg) 1 tab BID PO Last administered on 04/18/18 08:34; Admin Dose 1 TAB; Start 03/28/18 at 21:00 Nystatin (Nystatin Powder) 1 applic BID TOP Last administered on 04/18/18 08:33; Admin Dose 1 APPLIC; Start 03/28/18 at 21:00 Cholecalciferol (Vitamin D) 2,000 unit BID PO Last administered on 04/18/18 08:34; Admin Dose 2,000 UNIT; Start 03/28/18 at 21:00 Miscellaneous Information (Pending Santyl Order For Wound Care) This patient rivera ... PRN PRN XX soiled; Start 03/28/18 at 19:00 Senna/Docusate Sodium (Senokot-S) 2 tab DAILY PO Last administered on 04/18/18 08:34; Admin Dose 2 TAB; Start 03/30/18 at 09:00 Multivitamins Therapeutic (Theragran) 1 tab DAILY PO Last administered on 04/18/18 08:34; Admin Dose 1 TAB; Start 03/30/18 at 09:00 Gabapentin (Neurontin) 200 mg TID PO Last administered on 04/18/18 13:08; Admin Dose 200 MG; Start 03/30/18 at 13:00 Digoxin (Digoxin) 0.125 mg DAILY@13 PO Last administered on 04/18/18 13:08; Admin Dose 0.125 MG; Start 04/02/18 at 13:00 Bisacodyl (Dulcolax) 5 mg DAILY PRN PO CONSTIPATION Last administered on 04/05/18at 20:24; Admin Dose 5 MG; Start 04/02/18 at 18:30 Collagenase (Santyl) 1 applic DAILY TOP Last administered on 04/18/18 08:36; Admin Dose 1 APPLIC; Start 04/03/18 at 11:00 Vancomycin HCl (Vanco Iv Per Pharmacy) VANCOMYCIN PER PHARMACY PER PROTOCOL XX ; Start 04/04/18 at 17:30 Furosemide (Lasix) 40 mg DAILY PO Last administered on 04/18/18 08:34; Admin Dose 40 MG; Start 04/06/18 at 09:00 Mupirocin (Bactroban) 1 applic BID TOP Last administered on 04/18/18 08:36; Admin Dose 1 APPLIC; Start 04/06/18 at 21:00 Metoprolol Succinate (Toprol Xl) 50 mg BID PO Last administered on 04/18/18 08:35; Admin Dose 50 MG; Start 04/13/18 at 21:00 Oxycodone HCl (Roxicodone) 30 mg Q6H PRN PO PAIN LEVEL 6-10 Last administered on 04/18/18 08:51; Admin Dose 30 MG; Start 04/13/18 at 16:00 Vancomycin/Sodium Chloride 250 ml @ 125 mls/hr Q24H IVPB Last administered on 04/17/18 22:14; Admin Dose 125 MLS/HR; Start 04/17/18 at 23:00 NAYELI MADERA NP Apr 18, 2018 14:15
--- NOTE | 2018-04-18 15:30 | CONS ---
Date/Time of Note Date/Time of Note DATE: 04/18/18 TIME: 14:39 Consult Date/Type/Reason Admit Date/Time Mar 29, 2018 at 07:48 Initial Consult Date Requesting Provider: SUSAN FAULKNER MD Subjective No new complaint. No new clinical event. culture of aspirate from fluid collection at level of AKA stump, that was performed by Dr. Henry in Radiology on 04/12/18, has grown MRSA. pt, under tr. with antibiotics per I.D. Objective Vital Signs Date Temp Pulse Resp B/P (MAP) Pulse Ox O2 O2 Flow FiO2 Time Delivery Rate 04/18/18 82 18 99 21 13:21 04/18/18 98.3 109/64 Room Air 12:01 (79) Intake and Output 04/17/18 04/17/18 04/18/18 1515:00 23:00 07:00 IntakeIntake Total 750 ml OutputOutput Total 2900 ml BalanceBalance -2150 ml Exam Pt. is A.A. Oriented, no acute distress VS. stable,today Afebrile, H.R. fluctuating 80--100 Results/Medications Result Diagram: 04/18/18 0439 04/18/18 0439 Results 24 hrs Laboratory Tests Test 04/17/18 22:10 04/18/18 04:39 04/18/18 12:50 Vancomycin Level Trough 15.0 White Blood Count 12.4 H Red Blood Count 4.51 L Hemoglobin 10.7 L Hematocrit 33.1 L Mean Corpuscular Volume 73.4 L Mean Corpuscular Hemoglobin 23.7 L Mean Corpuscular Hemoglobin Concent 32.3 Red Cell Distribution Width 20.8 H Platelet Count 502 H Mean Platelet Volume 10.3 Immature Granulocytes % 0.900 H Neutrophils % 69.2 Lymphocytes % 17.2 Monocytes % 11.6 H Eosinophils % 0.7 Basophils % 0.4 Nucleated Red Blood Cells % 0.0 Immature Granulocytes # 0.110 H Neutrophils # 8.6 H Lymphocytes # 2.1 Monocytes # 1.4 H Eosinophils # 0.1 Basophils # 0.1 Nucleated Red Blood Cells # 0.0 Sodium Level 138 Potassium Level 4.8 Chloride Level 97 Carbon Dioxide Level 31 Anion Gap 10 Blood Urea Nitrogen 24 H Creatinine 0.86 Est Glomerular Filtrat Rate mL/min > 60 Glucose Level 107 # Calcium Level 9.3 Phosphorus Level 4.5 Magnesium Level 2.0 Urine Color YELLOW Urine Clarity CLEAR Urine pH 6.0 Urine Specific [place] 1.013 Urine Ketones NEGATIVE Urine Nitrite NEGATIVE Urine Bilirubin NEGATIVE Urine Urobilinogen 2+ H Urine Leukocyte Esterase NEGATIVE Urine Hemoglobin NEGATIVE Urine Glucose NEGATIVE Urine Total Protein NEGATIVE Medications Current Medications Atorvastatin Calcium (Lipitor) 80 mg QHS PO Last administered on 04/17/18 21:05; Admin Dose 80 MG; Start 03/28/18 at 21:00 Budesonide (Pulmicort (Neb)) 0.5 mg BID RESP THERAPY HHN Last administered on 04/18/18 07:25; Admin Dose 0.5 MG; Start 03/28/18 at 20:00 Ferrous Gluconate (Fergon) 325 mg BID PO Last administered on 04/18/18 08:34; Admin Dose 325 MG; Start 03/28/18 at 21:00 Albuterol/ Ipratropium (Duoneb) 3 ml Q6HWA RESP THERAPY HHN Last administered on 04/18/18 13:21; Admin Dose 3 ML; Start 03/28/18 at 20:00 Montelukast Sodium (Singulair) 10 mg QHS PO Last administered on 04/17/18 21:06; Admin Dose 10 MG; Start 03/28/18 at 21:00 Pantoprazole (Protonix Tab) 40 mg DAILY@06 PO Last administered on 04/18/18 06:57; Admin Dose 40 MG; Start 03/29/18 at 06:00 Spironolactone (Aldactone) 25 mg DAILY PO Last administered on 04/18/18 08:33; Admin Dose 25 MG; Start 03/29/18 at 09:00 Tamsulosin HCl (Flomax) 0.4 mg HS PO Last administered on 04/17/18 21:04; Admin Dose 0.4 MG; Start 03/28/18 at 21:00 Tiotropium [place] (Spiriva) 1 inh DAILY INH Last administered on 04/18/18 08:36; Admin Dose 1 INH; Start 03/29/18 at 09:00 Albuterol (Proventil 0.083% (Neb)) 2.5 mg Q2H RESP THERAPY PRN HHN SHORTNESS OF BREATH Last administered on 04/06/18at 19:39; Admin Dose 2.5 MG; Start 03/28/18 at 16:30 IV Flush (NS 3 ml) 3 ml PER PROTOCOL IV ; Start 03/28/18 at 16:30 Ondansetron HCl (Zofran Inj) 4 mg Q6H PRN IV NAUSEA AND/OR VOMITING; Start 03/28/18 at 16:30 Nitroglycerin (Nitroglycerin (Sl Tab) 0.4 Mg) 1 tab Q5M PRN SL CHEST PAIN; Start 03/28/18 at 16:30 Acetaminophen (Tylenol Tab) 650 mg Q6H PRN PO PAIN LEVEL 1-3 OR FEVER Last administered on 04/13/18at 21:11; Admin Dose 650 MG; Start 03/28/18 at 16:30 Docusate Sodium (Colace) 100 mg Q12H PRN PO CONSTIPATION Last administered on 04/06/18at 22:50; Admin Dose 100 MG; Start 03/28/18 at 16:30 Magnesium Hydroxide (Milk Of Mag) 30 ml DAILY PRN PO CONSTIPATION Last administered on 04/06/18at 22:50; Admin Dose 30 ML; Start 03/28/18 at 16:30 Enoxaparin Sodium (Lovenox) 40 mg DAILY SC Last administered on 04/18/18 08:44; Admin Dose 40 MG; Start 03/29/18 at 09:00 Sacubitril/ Valsartan (Entresto 24 Mg-26 Mg) 1 tab BID PO Last administered on 04/18/18 08:34; Admin Dose 1 TAB; Start 03/28/18 at 21:00 Nystatin (Nystatin Powder) 1 applic BID TOP Last administered on 04/18/18 08:33; Admin Dose 1 APPLIC; Start 03/28/18 at 21:00 Cholecalciferol (Vitamin D) 2,000 unit BID PO Last administered on 04/18/18 08:34; Admin Dose 2,000 UNIT; Start 03/28/18 at 21:00 Miscellaneous Information (Pending Santyl Order For Wound Care) This patient rivera... PRN PRN XX soiled; Start 03/28/18 at 19:00 Senna/Docusate Sodium (Senokot-S) 2 tab DAILY PO Last administered on 04/18/18 08:34; Admin Dose 2 TAB; Start 03/30/18 at 09:00 Multivitamins Therapeutic (Theragran) 1 tab DAILY PO Last administered on 04/18/18 08:34; Admin Dose 1 TAB; Start 03/30/18 at 09:00 Gabapentin (Neurontin) 200 mg TID PO Last administered on 04/18/18 13:08; Admin Dose 200 MG; Start 03/30/18 at 13:00 Digoxin (Digoxin) 0.125 mg DAILY@13 PO Last administered on 04/18/18 13:08; Admin Dose 0.125 MG; Start 04/02/18 at 13:00 Bisacodyl (Dulcolax) 5 mg DAILY PRN PO CONSTIPATION Last administered on 04/05/18at 20:24; Admin Dose 5 MG; Start 04/02/18 at 18:30 Collagenase (Santyl) 1 applic DAILY TOP Last administered on 04/18/18 08:36; Admin Dose 1 APPLIC; Start 04/03/18 at 11:00 Vancomycin HCl (Vanco Iv Per Pharmacy) VANCOMYCIN PER PHARMACY PER PROTOCOL XX ; Start 04/04/18 at 17:30 Furosemide (Lasix) 40 mg DAILY PO Last administered on 04/18/18 08:34; Admin Dose 40 MG; Start 04/06/18 at 09:00 Mupirocin (Bactroban) 1 applic BID TOP Last administered on 04/18/18 08:36; Admin Dose 1 APPLIC; Start 04/06/18 at 21:00 Metoprolol Succinate (Toprol Xl) 50 mg BID PO Last administered on 04/18/18 08:35; Admin Dose 50 MG; Start 04/13/18 at 21:00 Oxycodone HCl (Roxicodone) 30 mg Q6H PRN PO PAIN LEVEL 6-10 Last administered on 04/18/18 08:51; Admin Dose 30 MG; Start 04/13/18 at 16:00 Vancomycin/Sodium Chloride 250 ml @ 125 mls/hr Q24H IVPB Last administered on 04/17/18 22:14; Admin Dose 125 MLS/HR; Start 04/17/18 at 23:00 Assessment/Plan Chief Complaint/Hosp Course I saw this pt. in consultation on 04/13/2018, for evaluation of (fluid) collection in distal part of rt. AKAmputation area and stump and leukocytosis. apparantly this amputation was done at [facility] more than One year ago, most probably for Arterial vascular problems.on last admision here in June 2017, the ct or MRI, of right AKA stump has showed some fluid collection though not a lot. On 04/10/18 theMRI of Rt. thigh has showed:Soft tissue edema surrounding the Femurefrom the mid thigh to the amputation site concerning for soft tissue infection. on 04/12/18 DR Henry radiologist under [place] aspirated fluid from the stump area which was reported Brownish in color and culture from this grew MRSA CTA: on this admission has showed occlusion of common Iliac and common femoral down to bifurcation,only opacification of Rt. prof.femoris with severe calcific plaque .Also there is occlusion of vessel in distal thigh ( this means ischemia of distal tissues at amputation level?) Therefore here is a gentleman with bilat AKA, for arterial circulation insufficiency, and also he continues to smoke and has a deep soft tissue infection with fluid accumulation at RT. stump site,that per MRI has soft tissue edema surrounding the femur from MID THIGH to the amputation site. this could mean that muscles around distal part of RT. femur also are part of MRSA infection . I belive simple I.&D is not going to solve his problem BUT there is need fore extensive debridment of infected muscles, whereby distal part of bone will be exposed uncovered. Therefore to my opinion, orthopedic intervention for changing the level of Amputation to more proximal healthy tissues may be indicated. ROC PEREZ MD Apr 18, 2018 14:49
[2018-04-18] MEDS: TAMSULOSIN (SR) 0.4 MG CAP PO SCH (21:03)
[2018-04-18] MEDS: MONTELUKAST 10 MG TAB PO SCH (21:03)
[2018-04-18] MEDS: ATORVASTATIN 80 MG TAB PO SCH (21:07)
--- NOTE | 2018-04-18 22:21 | CONS ---
DATE OF ADMISSION: 03/29/2018 DATE OF CONSULTATION: REASON FOR CONSULTATION: Right amputation dehiscence. HISTORY OF PRESENT ILLNESS: This is a 62-year-old male who has bilateral above knee amputations. Th e patient is being admitted because of a small wound in the right above amputation site. PAST MEDICAL HISTORY: Hypertension, hyperlipidemia, peripheral vascular disease, diabetes. PAST SURGICAL HISTORY: Bilateral above knee amputations. ALLERGIES: NONE. SOCIAL HISTORY: No smoking, drinking or drug use. MEDICATIONS: List reviewed. PHYSICAL EXAMINATION: VITAL SIGNS: Blood pressure is 110/60, pulse is 80, respirations 18. CARDIOVASCULAR: Regular rate and rhythm. LUNGS: Clear. ABDOMEN: Soft. EXTREMITIES: Warm. Left above amputation. He has healed well. Right above knee amputation inspect ed, 1 x 1 cm incision dehiscence has been noted. No drainage, no signs of infection. There are palp able femoral pulses bilaterally. LABORATORY VALUES: Significant for hemoglobin of 10.7, white count 12.4, platelet count 502. IMPRESSION: Right above knee amputation wound. RECOMMENDATIONS: There is no evidence of any infection. Would continue local wound care, dressing c hanges. Follow up in my office in 1 month. Dictated By: BRI TROY MD FM/NTS Conf#: [id number] DID#: [id number] CC: SUSAN FAULKNER MD;*EndCC*
[2018-04-19] VITALS (11 sets, daily range): BP systolic 102–122; BP diastolic 58–69; PULSE 65–101; RESP 18–20
[2018-04-19] MEDS: VANCOMYCIN 750 MG (PMX) 250 ML IVPB SCH (00:33)
[2018-04-19] MEDS: oxyCODONE 15 MG TAB PO PRN ×2 (03:51→21:58)
[2018-04-19] MEDS: PANTOPRAZOLE (EC) 40 MG TAB PO SCH (05:29)
[2018-04-19] MEDS: ALBUTEROL/IPRATROPIUM (NEB) 3 ML AMP HHN SCH ×3 (07:40→19:37)
[2018-04-19] MEDS: BUDESONIDE (NEB) 0.5MG/2ML AMP HHN SCH ×3 (08:00→19:45)
[2018-04-19] MEDS: GABAPENTIN 100 MG CAP PO SCH ×3 (09:05→21:59)
[2018-04-19] MEDS: SENNA/DOCUSATE NA (8.6MG/50MG) TAB PO SCH (09:05)
[2018-04-19] MEDS: TIOTROPIUM 18 MCG CAPSULE INHA DEV INH SCH (09:06)
[2018-04-19] MEDS: FUROSEMIDE 40 MG TAB PO SCH (09:06)
[2018-04-19] MEDS: SPIRONOLACTONE 25 MG TAB PO SCH (09:06)
[2018-04-19] MEDS: MULTIVITAMINS THERAPEUTIC TAB PO SCH (09:06)
[2018-04-19] MEDS: CHOLECALCIFEROL 2,000 UNIT CAP PO SCH ×2 (09:06→21:58)
[2018-04-19] MEDS: FERROUS GLUCONATE (EC) 325 MG TAB PO SCH ×2 (09:06→21:58)
[2018-04-19] MEDS: SACUBITRIL/VALSARTAN (24mg-26mg) TABLET PO SCH ×2 (09:06→21:00)
[2018-04-19] MEDS: COLLAGENASE 5 GM (UD JAR) TOP SCH (09:07)
[2018-04-19] MEDS: METOPROLOL (XL) 50 MG TAB PO SCH ×2 (09:07→21:00)
[2018-04-19] MEDS: MUPIROCIN 2% 22 GM OINT TOP SCH ×2 (09:07→21:00)
[2018-04-19] MEDS: NYSTATIN 30 GM POWDER BTL TOP SCH ×2 (09:07→21:00)
[2018-04-19] MEDS: ENOXAPARIN 40 MG/0.4 ML SYG SC SCH (09:18)
--- NOTE | 2018-04-19 12:15 | CONS ---
Date/Time of Note Date/Time of Note DATE: 04/19/18 TIME: 12:11 Assessment/Plan Assessment/Plan Hospital Course IMPRESSION: 1. Congestive heart failure exacerbation, systolic, acute on chronic. 2. Cardiomyopathy with severely depressed left ventricular ejection fraction with last being approximately 20%. 3. Hypertension. 4. Dyslipidemia. 5. History of substance abuse. 6. Chronic obstructive pulmonary disease. 7. Bilateral lower extremity amputation and presenting with right stump pain.- s/p IR guidede drainage of collection seen by LE CT 8. Questionable history of intracardiac thrombus not seen by most recent echocardiogram dated 01/06/2018, but with severely depressed ejection fraction at that time of 20%. 9. Tobacco intake. 10. SVT-regular recurrent to 160-180. Broke with PO BB. Also questionable WCT right before. Had recurrent SVT o/n 04/01.Slowly improving S tach 11.Fluid collection at stump site by CTA Recc: -Tele -Continue entresto/BB as tolerated -Continue aldactone -Continue lasix daily -Continue bronchodilators/abx's and f/u cx data -Continue po digoxin -pain control -ongoing surgical eval of limb paini/fluid collection Result Diagram: 04/18/18 0439 04/18/18 0439 Results 24hrs Laboratory Tests Test 04/18/18 12:50 Urine Color YELLOW Urine Clarity CLEAR Urine pH 6.0 Urine Specific [place] 1.013 Urine Ketones NEGATIVE Urine Nitrite NEGATIVE Urine Bilirubin NEGATIVE Urine Urobilinogen 2+ H Urine Leukocyte Esterase NEGATIVE Urine Hemoglobin NEGATIVE Urine Glucose NEGATIVE Urine Total Protein NEGATIVE Consultation Date/Type/Reason Admit Date/Time Mar 29, 2018 at 07:48 Initial Consult Date 03/29/18 Type of Consult cardiology Reason for Consultation CHF Requesting Provider: SUSAN FAULKNER MD Exam/Review of Systems Vital Signs Vitals Vital Signs Date Temp Pulse Resp B/P (MAP) Pulse Ox O2 O2 Flow FiO2 Time Delivery Rate 04/19/18 97 12:01 04/19/18 98.2 20 105/62 100 Room Air 11:50 (76) 04/19/18 21 07:40 Intake and Output 04/18/18 04/18/18 04/19/18 1515:00 23:00 07:00 IntakeIntake Total 750 ml 1600 ml OutputOutput Total 500 ml 1200 ml BalanceBalance 250 ml 400 ml Exam Review of Systems: CONSTITUTIONAL: No fevers, chills. PULMONARY: No sob CARDIOVASCULAR: No chest pain/palpitations GASTROINTESTINAL: No nausea/vomiting. GENITOURINARY: No hematuria/dysuria. MUSCULOSKELETAL: No myagias/arthalgias. PSYCHIATRIC: The patient denies depression. NEUROLOGIC: No weakness Constitutional: alert Psych: no complaints Head: normocephalic ENMT: mucosa pink and moist Neck: supple, jvd (9 cm water) Respiratory: diminished breath sounds Cardiovascular: regular rate and rhythm Gastrointestinal: soft, non-tender Musculoskeletal: muscle tone (normal) Extremities: other (bilateral LE amputation) Neurological: other (No focal deficits) Medications Medications Current Medications Atorvastatin Calcium (Lipitor) 80 mg QHS PO Last administered on 04/18/18 21:07; Admin Dose 80 MG; Start 03/28/18 at 21:00 Budesonide (Pulmicort (Neb)) 0.5 mg BID RESP THERAPY HHN Last administered on 04/19/18 08:00; Admin Dose 0.5 MG; Start 03/28/18 at 20:00 Ferrous Gluconate (Fergon) 325 mg BID PO Last administered on 04/19/18 09:06; Admin Dose 325 MG; Start 03/28/18 at 21:00 Albuterol/ Ipratropium (Duoneb) 3 ml Q6HWA RESP THERAPY HHN Last administered on 04/19/18 07:40; Admin Dose 3 ML; Start 03/28/18 at 20:00 Montelukast Sodium (Singulair) 10 mg QHS PO Last administered on 04/18/18 21:03; Admin Dose 10 MG; Start 03/28/18 at 21:00 Pantoprazole (Protonix Tab) 40 mg DAILY@06 PO Last administered on 04/19/18 05:29; Admin Dose 40 MG; Start 03/29/18 at 06:00 Spironolactone (Aldactone) 25 mg DAILY PO Last administered on 04/19/18 09:06; Admin Dose 25 MG; Start 03/29/18 at 09:00 Tamsulosin HCl (Flomax) 0.4 mg HS PO Last administered on 04/18/18 21:03; Admin Dose 0.4 MG; Start 03/28/18 at 21:00 Tiotropium [place] (Spiriva) 1 inh DAILY INH Last administered on 04/19/18 09:06; Admin Dose 1 INH; Start 03/29/18 at 09:00 Albuterol (Proventil 0.083% (Neb)) 2.5 mg Q2H RESP THERAPY PRN HHN SHORTNESS OF BREATH Last administered on 04/06/18 19:39; Admin Dose 2.5 MG; Start 03/28/18 at 16:30 IV Flush (NS 3 ml) 3 ml PER PROTOCOL IV ; Start 03/28/18 at 16:30 Ondansetron HCl (Zofran Inj) 4 mg Q6H PRN IV NAUSEA AND/OR VOMITING; Start 03/28/18 at 16:30 Nitroglycerin (Nitroglycerin (Sl Tab) 0.4 Mg) 1 tab Q5M PRN SL CHEST PAIN; Sta rt 03/28/18 at 16:30 Acetaminophen (Tylenol Tab) 650 mg Q6H PRN PO PAIN LEVEL 1-3 OR FEVER Last adm inistered on 04/13/18at 21:11; Admin Dose 650 MG; Start 03/28/18 at 16:30 Docusate Sodium (Colace) 100 mg Q12H PRN PO CONSTIPATION Last administered on 04/06/18 22:50; Admin Dose 100 MG; Start 03/28/18 at 16:30 Magnesium Hydroxide (Milk Of Mag) 30 ml DAILY PRN PO CONSTIPATION Last administered on 04/06/18at 22:50; Admin Dose 30 ML; Start 03/28/18 at 16:30 Enoxaparin Sodium (Lovenox) 40 mg DAILY SC Last administered on 04/19/18 09:18; Admin Dose 40 MG; Start 03/29/18 at 09:00 Sacubitril/ Valsartan (Entresto 24 Mg-26 Mg) 1 tab BID PO Last administered on 04/19/18 09:06; Admin Dose 1 TAB; Start 03/28/18 at 21:00 Nystatin (Nystatin Powder) 1 applic BID TOP Last administered on 04/19/18 09:07; Admin Dose 1 APPLIC; Start 03/28/18 at 21:00 Cholecalciferol (Vitamin D) 2,000 unit BID PO Last administered on 04/19/18 09:06; Admin Dose 2,000 UNIT; Start 03/28/18 at 21:00 Miscellaneous Information (Pending Santyl Order For Wound Care) This patient rivera... PRN PRN XX soiled; Start 03/28/18 at 19:00 Senna/Docusate Sodium (Senokot-S) 2 tab DAILY PO Last administered on 04/19/18 09:05; Admin Dose 2 TAB; Start 03/30/18 at 09:00 Multivitamins Therapeutic (Theragran) 1 tab DAILY PO Last administered on 04/19/18 09:06; Admin Dose 1 TAB; Start 03/30/18 at 09:00 Gabapentin (Neurontin) 200 mg TID PO Last administered on 04/19/18 09:05; Admin Dose 200 MG; Start 03/30/18 at 13:00 Digoxin (Digoxin) 0.125 mg DAILY@13 PO Last administered on 04/18/18 13:08; Admin Dose 0.125 MG; Start 04/02/18 at 13:00 Bisacodyl (Dulcolax) 5 mg DAILY PRN PO CONSTIPATION Last administered on 03/18 20:24; Admin Dose 5 MG; Start 04/02/18 at 18:30 Collagenase (Santyl) 1 applic DAILY TOP Last administered on 04/19/18 09:07; Admin Dose 1 APPLIC; Start 04/03/18 at 11:00 Vancomycin HCl (Vanco Iv Per Pharmacy) VANCOMYCIN PER PHARMACY PER PROTOCOL XX ; Start 04/04/18 at 17:30 Furosemide (Lasix) 40 mg DAILY PO Last administered on 04/19/18 09:06; Admin Dose 40 MG; Start 04/06/18 at 09:00 Mupirocin (Bactroban) 1 applic BID TOP Last administered on 04/19/18 09:07; Admin Dose 1 APPLIC; Start 04/06/18 at 21:00 Metoprolol Succinate (Toprol Xl) 50 mg BID PO Last administered on 04/19/18 09:07; Admin Dose 50 MG; Start 04/13/18 at 21:00 Oxycodone HCl (Roxicodone) 30 mg Q6H PRN PO PAIN LEVEL 6-10 Last administered on 04/19/18 03:51; Admin Dose 30 MG; Start 04/13/18 at 16:00 Vancomycin/Sodium Chloride 250 ml @ 125 mls/hr Q24H IVPB Last administered on 04/19/18at 00:33; Admin Dose 125 MLS/HR; Start 04/17/18 at 23:00 VIVIAN PRINCE Apr 19, 2018 12:15
[2018-04-19] MEDS: DIGOXIN 0.125 MG TAB PO SCH (12:45)
--- NOTE | 2018-04-19 16:16 | CONS ---
Date/Time of Note Date/Time of Note DATE: 04/19/18 TIME: 16:14 Assessment/Plan Assessment/Plan Hospital Course Patient is in no distress looks comfortable no fevers. Microbiology: Aspirated fluid culture from right lower extremity growing MRSA X-ray of right lower extremity revealed possible osteomyelitis of the distal femur. Antimicrobials: Vancomycin Allergy: Tetracycline Physical examination: Well-nourished well-developed elderly -[place] man who is in no distress. Head atraumatic normocephalic neck is supple chest rise symmetrical breath sounds diminished bases. Heart: S1-S2. Abdomen soft bowel sounds present. Extremities without cyanosis patient has bilateral above-knee amputation, right stump painful to touch Assessment: 1. Leukocytosis secondary to right lower extremity stump MRSA abscess that was drained and probable osteomyelitis 2. Status post recurrent CHF/COPD exacerbation 3. Severe PAD 4. Substance abuse 5. Multiple wounds and pressure sores 6. History of methicillin-resistant Staphylococcus aureus infected graft, status post debridement back in 06/2017, per patient, the rest of the graft was removed at [facility], he completed IV vancomycin back in January 7. History of CABG and MA 8. Diabetes 9. MRSA nares colonization 10. Medical noncompliance with chronic tobacco use Plan: Clinically unchanged, continue IV vancomycin and consider PICC line placement for long-term IV antibiotics. Pending Ortho evaluation. Vascular recommendations noted==> ok to f/u outpatient DW staff Result Diagram: 04/18/18 0439 04/18/18 0439 Consultation Date/Type/Reason Admit Date/Time Mar 29, 2018 at 07:48 Initial Consult Date Type of Consult ID Requesting Provider: SUSAN FAULKNER MD Exam/Review of Systems Vital Signs Vitals Vital Signs Date Temp Pulse Resp B/P (MAP) Pulse Ox O2 O2 Flow FiO2 Time Delivery Rate 04/19/18 89 16:01 04/19/18 98.3 20 106/60 98 Room Air 15:28 (75) 04/19/18 21 13:05 Intake and Output 04/18/18 04/18/18 04/19/18 1515:00 23:00 07:00 IntakeIntake Total 750 ml 1600 ml OutputOutput Total 500 ml 1200 ml BalanceBalance 250 ml 400 ml Medications Medications Current Medications Atorvastatin Calcium (Lipitor) 80 mg QHS PO Last administered on 04/18/18at 21:07; Admin Dose 80 MG; Start 03/28/18 at 21:00 Budesonide (Pulmicort (Neb)) 0.5 mg BID RESP THERAPY HHN Last administered on 04/19/18 08:00; Admin Dose 0.5 MG; Start 03/28/18 at 20:00 Ferrous Gluconate (Fergon) 325 mg BID PO Last administered on 04/19/18 09:06; Admin Dose 325 MG; Start 03/28/18 at 21:00 Albuterol/ Ipratropium (Duoneb) 3 ml Q6HWA RESP THERAPY HHN Last administered on 04/19/18 13:05; Admin Dose 3 ML; Start 03/28/18 at 20:00 Montelukast Sodium (Singulair) 10 mg QHS PO Last administered on 04/18/18 21:03; Admin Dose 10 MG; Start 03/28/18 at 21:00 Pantoprazole (Protonix Tab) 40 mg DAILY@06 PO Last administered on 04/19/18 05:29; Admin Dose 40 MG; Start 03/29/18 at 06:00 Spironolactone (Aldactone) 25 mg DAILY PO Last administered on 04/19/18 09:06; Admin Dose 25 MG; Start 03/29/18 at 09:00 Tamsulosin HCl (Flomax) 0.4 mg HS PO Last administered on 04/18/18 21:03; Admin Dose 0.4 MG; Start 03/28/18 at 21:00 Tiotropium [place] (Spiriva) 1 inh DAILY INH Last administered on 04/19/18 09:06; Admin Dose 1 INH; Start 03/29/18 at 09:00 Albuterol (Proventil 0.083% (Neb)) 2.5 mg Q2H RESP THERAPY PRN HHN SHORTNESS OF BREATH Last administered on 04/06/18at 19:39; Admin Dose 2.5 MG; Start 03/28/18 at 16:30 IV Flush (NS 3 ml) 3 ml PER PROTOCOL IV ; Start 03/28/18 at 16:30 Ondansetron HCl (Zofran Inj) 4 mg Q6H PRN IV NAUSEA AND/OR VOMITING; Start 03/28/18 at 16:30 Nitroglycerin (Nitroglycerin (Sl Tab) 0.4 Mg) 1 tab Q5M PRN SL CHEST PAIN; Start 03/28/18 at 16:30 Acetaminophen (Tylenol Tab) 650 mg Q6H PRN PO PAIN LEVEL 1-3 OR FEVER Last administered on 04/13/18at 21:11; Admin Dose 650 MG; Start 03/28/18 at 16:30 Docusate Sodium (Colace) 100 mg Q12H PRN PO CONSTIPATION Last administered on 04/06/18at 22:50; Admin Dose 100 MG; Start 03/28/18 at 16:30 Magnesium Hydroxide (Milk Of Mag) 30 ml DAILY PRN PO CONSTIPATION Last administered on 04/06/18at 22:50; Admin Dose 30 ML; Start 03/28/18 at 16:30 Enoxaparin Sodium (Lovenox) 40 mg DAILY SC Last administered on 04/19/18 09:18; Admin Dose 40 MG; Start 03/29/18 at 09:00 Sacubitril/ Valsartan (Entresto 24 Mg-26 Mg) 1 tab BID PO Last administered on 04/19/18 09:06; Admin Dose 1 TAB; Start 03/28/18 at 21:00 Nystatin (Nystatin Powder) 1 applic BID TOP Last administered on 04/19/18 09:07; Admin Dose 1 APPLIC; Start 03/28/18 at 21:00 Cholecalciferol (Vitamin D) 2,000 unit BID PO Last administered on 04/19/18 09:06; Admin Dose 2,000 UNIT; Start 03/28/18 at 21:00 Miscellaneous Information (Pending [facility] Order For Wound Care) This patient rivera... PRN PRN XX soiled; Start 03/28/18 at 19:00 Senna/Docusate Sodium (Senokot-S) 2 tab DAILY PO Last administered on 04/19/18 09:05; Admin Dose 2 TAB; Start 03/30/18 at 09:00 Multivitamins Therapeutic (Theragran) 1 tab DAILY PO Last administered on 04/19/18 09:06; Admin Dose 1 TAB; Start 03/30/18 at 09:00 Gabapentin (Neurontin) 200 mg TID PO Last administered on 04/19/18 12:45; Admin Dose 200 MG; Start 03/30/18 at 13:00 Digoxin (Digoxin) 0.125 mg DAILY@13 PO Last administered on 04/19/18 12:45; Admin Dose 0.125 MG; Start 04/02/18 at 13:00 Bisacodyl (Dulcolax) 5 mg DAILY PRN PO CONSTIPATION Last administered on 04/05/18at 20:24; Admin Dose 5 MG; Start 04/02/18 at 18:30 Collagenase (Santyl) 1 applic DAILY TOP Last administered on 04/19/18 09:07; Admin Dose 1 APPLIC; Start 04/03/18 at 11:00 Vancomycin HCl (Vanco Iv Per Pharmacy) VANCOMYCIN PER PHARMACY PER PROTOCOL XX ; Start 04/04/18 at 17:30 Furosemide (Lasix) 40 mg DAILY PO Last administered on 04/19/18 09:06; Admin Dose 40 MG; Start 04/06/18 at 09:00 Mupirocin (Bactroban) 1 applic BID TOP Last administered on 04/19/18 09:07; Admin Dose 1 APPLIC; Start 04/06/18 at 21:00 Metoprolol Succinate (Toprol Xl) 50 mg BID PO Last administered on 04/19/18 09:07; Admin Dose 50 MG; Start 04/13/18 at 21:00 Oxycodone HCl (Roxicodone) 30 mg Q6H PRN PO PAIN LEVEL 6-10 Last administered on 04/19/18 03:51; Admin Dose 30 MG; Start 04/13/18 at 16:00 Vancomycin/Sodium Chloride 250 ml @ 125 mls/hr Q24H IVPB Last administered on 04/19/18 00:33; Admin Dose 125 MLS/HR; Start 04/17/18 at 23:00 NAYELI MADERA NP Apr 19, 2018 16:16
--- NOTE | 2018-04-19 17:02 | PN ---
Date/Time of Note Date/Time of Note DATE: 04/19/18 TIME: 16:59 Objective Vitals Vital Signs Date Temp Pulse Resp B/P (MAP) Pulse Ox O2 O2 Flow FiO2 Time Delivery Rate 04/19/18 89 16:01 04/19/18 98.3 20 106/60 98 Room Air 15:28 (75) 04/19/18 21 13:05 Intake and Output 04/18/18 04/18/18 04/19/18 1515:00 23:00 07:00 IntakeIntake Total 750 ml 1600 ml OutputOutput Total 500 ml 1200 ml BalanceBalance 250 ml 400 ml Results Result Diagram: 04/18/18 0439 04/18/18 0439 Medications Medications Current Medications Atorvastatin Calcium (Lipitor) 80 mg QHS PO Last administered on 04/18/18 21:07; Admin Dose 80 MG; Start 03/28/18 at 21:00 Budesonide (Pulmicort (Neb)) 0.5 mg BID RESP THERAPY HHN Last administered on 04/19/18 08:00; Admin Dose 0.5 MG; Start 03/28/18 at 20:00 Ferrous Gluconate (Fergon) 325 mg BID PO Last administered on 04/19/18 09:06; Admin Dose 325 MG; Start 03/28/18 at 21:00 Albuterol/ Ipratropium (Duoneb) 3 ml Q6HWA RESP THERAPY HHN Last administered on 04/19/18 13:05; Admin Dose 3 ML; Start 03/28/18 at 20:00 Montelukast Sodium (Singulair) 10 mg QHS PO Last administered on 04/18/18 21:03; Admin Dose 10 MG; Start 03/28/18 at 21:00 Pantoprazole (Protonix Tab) 40 mg DAILY@06 PO Last administered on 04/19/18 05:29; Admin Dose 40 MG; Start 03/29/18 at 06:00 Spironolactone (Aldactone) 25 mg DAILY PO Last administered on 04/19/18 09:06; Admin Dose 25 MG; Start 03/29/18 at 09:00 Tamsulosin HCl (Flomax) 0.4 mg HS PO Last administered on 04/18/18 21:03; Admin Dose 0.4 MG; Start 03/28/18 at 21:00 Tiotropium [place] (Spiriva) 1 inh DAILY INH Last administered on 04/19/18 09:06; Admin Dose 1 INH; Start 03/29/18 at 09:00 Albuterol (Proventil 0.083% (Neb)) 2.5 mg Q2H RESP THERAPY PRN HHN SHORTNESS OF BREATH Last administered on 04/06/18at 19:39; Admin Dose 2.5 MG; Start 03/28/18 at 16:30 IV Flush (NS 3 ml) 3 ml PER PROTOCOL IV ; Start 03/28/18 at 16:30 Ondansetron HCl (Zofran Inj) 4 mg Q6H PRN IV NAUSEA AND/OR VOMITING; Start 03/28/18 at 16:30 Nitroglycerin (Nitroglycerin (Sl Tab) 0.4 Mg) 1 tab Q5M PRN SL CHEST PAIN; Start 03/28/18 at 16:30 Acetaminophen (Tylenol Tab) 650 mg Q6H PRN PO PAIN LEVEL 1-3 OR FEVER Last administered on 04/13/18at 21:11; Admin Dose 650 MG; Start 03/28/18 at 16:30 Docusate Sodium (Colace) 100 mg Q12H PRN PO CONSTIPATION Last administered on 04/06/18at 22:50; Admin Dose 100 MG; Start 03/28/18 at 16:30 Magnesium Hydroxide (Milk Of Mag) 30 ml DAILY PRN PO CONSTIPATION Last administered on 04/06/18at 22:50; Admin Dose 30 ML; Start 03/28/18 at 16:30 Enoxaparin Sodium (Lovenox) 40 mg DAILY SC Last administered on 04/19/18 09:18; Admin Dose 40 MG; Start 03/29/18 at 09:00 Sacubitril/ Valsartan (Entresto 24 Mg-26 Mg) 1 tab BID PO Last administered on 04/19/18 09:06; Admin Dose 1 TAB; Start 03/28/18 at 21:00 Nystatin (Nystatin Powder) 1 applic BID TOP Last administered on 04/19/18 09:07; Admin Dose 1 APPLIC; Start 03/28/18 at 21:00 Cholecalciferol (Vitamin D) 2,000 unit BID PO Last administered on 04/19/18 09:06; Admin Dose 2,000 UNIT; Start 03/28/18 at 21:00 Miscellaneous Information (Pending Santyl Order For Wound Care) This patient rivera... PRN PRN XX soiled; Start 03/28/18 at 19:00 Senna/Docusate Sodium (Senokot-S) 2 tab DAILY PO Last administered on 04/19/18 09:05; Admin Dose 2 TAB; Start 03/30/18 at 09:00 Multivitamins Therapeutic (Theragran) 1 tab DAILY PO Last administered on 04/19/18 09:06; Admin Dose 1 TAB; Start 03/30/18 at 09:00 Gabapentin (Neurontin) 200 mg TID PO Last administered on 04/19/18 12:45; Admin Dose 200 MG; Start 03/30/18 at 13:00 Digoxin (Digoxin) 0.125 mg DAILY@13 PO Last administered on 04/19/18 12:45; Admin Dose 0.125 MG; Start 04/02/18 at 13:00 Bisacodyl (Dulcolax) 5 mg DAILY PRN PO CONSTIPATION Last administered on 04/05/18at 20:24; Admin Dose 5 MG; Start 04/02/18 at 18:30 Collagenase (Santyl) 1 applic DAILY TOP Last administered on 04/19/18 09:07; Admin Dose 1 APPLIC; Start 04/03/18 at 11:00 Vancomycin HCl (Vanco Iv Per Pharmacy) VANCOMYCIN PER PHARMACY PER PROTOCOL XX ; Start 04/04/18 at 17:30 Furosemide (Lasix) 40 mg DAILY PO Last administered on 04/19/18 09:06; Admin Dose 40 MG; Start 04/06/18 at 09:00 Mupirocin (Bactroban) 1 applic BID TOP Last administered on 04/19/18 09:07; Admin Dose 1 APPLIC; Start 04/06/18 at 21:00 Metoprolol Succinate (Toprol Xl) 50 mg BID PO Last administered on 04/19/18 09:07; Admin Dose 50 MG; Start 04/13/18 at 21:00 Oxycodone HCl (Roxicodone) 30 mg Q6H PRN PO PAIN LEVEL 6-10 Last administered on 04/19/18 03:51; Admin Dose 30 MG; Start 04/13/18 at 16:00 Vancomycin/Sodium Chloride 250 ml @ 125 mls/hr Q24H IVPB Last administered on 04/19/18at 00:33; Admin Dose 125 MLS/HR; Start 04/17/18 at 23:00 VTE Prophylaxis Risk score (from Ns)>0 risk: 7 SCD applied (from Ns): No SCD contraindication: other Lines/Catheters IV Catheter Type: Delatorre in Place: No Assessment/Plan Hospital Course Subjective No new acute complaints, Objective Physical exam General: Patient is laying in bed and answers questions appropriately Mentation: Patient is alert and oriented 4, Head: Normocephalic atraumatic Eyes: EOMI, pupils reactive to light Neck: Supple, nontender, midline Respiratory: Clear to auscultation bilaterally Cardiovascular: regular rate, no obvious murmurs Gastrointestinal: non-tender to palpation, bowel sounds heard. Neurological: Moves all extremities spontaneously Musculoskeletal: Bilateral AKA Assessment/Plan 1. Acute infection in right thigh s/p amputation at [facility] - IR drained large amount of pus from right stump and sent for cultures. Awaiting results - Discussed case with vascular who is recommending patient return to [facility] for intervention on right stump given operation was performed there. - Spoke with Ortho about drainage of abscess and stated if not in bone or joint, would defer to General surgery. - General surgery consulted and requested CTA. CTA resulted with no findings that differ from previous imaging studies - ID on board and appreciate recommendations. Will continue current antibiotics and await cultures from abscess - Pain management on board and appreciate consultation. - LE US negative for DVT. 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 Discussed with vascular, Dr. Rodríguez, who said it was chronic and will need to follow up with outpatient clinic at [facility] since RLE amputation was performed there. - Dr. Sloan, CT surgery asked to eval patient's need for acute inpatient intervention at tertiary care center vs outpatient follow up, states can follow up outpatient - PT/OT on board R LE stump wound -MRSA -gen surg believes this will cause continued necrosis and needs amputation further up, Vascular/CT surgery believes this will heal well on its own -MRI was unclear due to movement 2/2 patient having pain when on MRI machine -xray femur can not rule out osteo -may need jail antibiotics 2. leukocytosis- trending down - ID on board and appreciate recommendations 3. Acute on chronic systolic heart failure- resolved - Cardiology consultation appreciated. - Echo results noted from prior admission with EF 20% 4. Wounds on elbows and sacrum - wound consultation appreciated 5. CAD - continue all home medications - stable 6. b/l AKA secondary to PVD 7. Episode of sustained vtach - monitor - Cardiology on board and continues to adjust medications as needed 8. Disposition -Dr. Rodriguez, general surgery believes this is muscle necrosis and the only treatment for patient may be a higher up amputation. Dr. Sloan, CT/Vascular surgery believes this wound will heal well on its own and outpatient followup can be made. Will now await call back from orthopedic surgeon regarding if f urther above knee amputation in a possibility ZACH SIMON Apr 19, 2018 17:02
[2018-04-19] MEDS: TAMSULOSIN (SR) 0.4 MG CAP PO SCH (21:58)
[2018-04-19] MEDS: MONTELUKAST 10 MG TAB PO SCH (21:58)
[2018-04-19] MEDS: ATORVASTATIN 80 MG TAB PO SCH (21:59)
[2018-04-20] VITALS (13 sets, daily range): BP systolic 100–120; BP diastolic 58–69; PULSE 96–158; RESP 18–20
[2018-04-20] MEDS: VANCOMYCIN 750 MG (PMX) 250 ML IVPB SCH (02:34)
[2018-04-20] MEDS: PANTOPRAZOLE (EC) 40 MG TAB PO SCH (06:22)
[2018-04-20] MEDS: ALBUTEROL/IPRATROPIUM (NEB) 3 ML AMP HHN SCH ×3 (07:48→20:38)
[2018-04-20] MEDS: BUDESONIDE (NEB) 0.5MG/2ML AMP HHN SCH ×2 (07:48→20:38)
[2018-04-20] MEDS: SENNA/DOCUSATE NA (8.6MG/50MG) TAB PO SCH (09:00)
[2018-04-20] MEDS: SACUBITRIL/VALSARTAN (24mg-26mg) TABLET PO SCH ×2 (09:29→20:17)
[2018-04-20] MEDS: MULTIVITAMINS THERAPEUTIC TAB PO SCH (09:29)
[2018-04-20] MEDS: SPIRONOLACTONE 25 MG TAB PO SCH (09:30)
[2018-04-20] MEDS: FUROSEMIDE 40 MG TAB PO SCH (09:31)
[2018-04-20] MEDS: METOPROLOL (XL) 50 MG TAB PO SCH ×2 (09:31→20:13)
[2018-04-20] MEDS: GABAPENTIN 100 MG CAP PO SCH ×3 (09:31→20:12)
[2018-04-20] MEDS: NYSTATIN 30 GM POWDER BTL TOP SCH ×2 (09:32→20:14)
[2018-04-20] MEDS: MUPIROCIN 2% 22 GM OINT TOP SCH ×2 (09:32→20:13)
[2018-04-20] MEDS: COLLAGENASE 5 GM (UD JAR) TOP SCH (09:32)
[2018-04-20] MEDS: TIOTROPIUM 18 MCG CAPSULE INHA DEV INH SCH (09:32)
[2018-04-20] MEDS: ENOXAPARIN 40 MG/0.4 ML SYG SC SCH (09:38)
[2018-04-20] MEDS: oxyCODONE 15 MG TAB PO PRN ×2 (09:42→18:56)
[2018-04-20] MEDS: FERROUS GLUCONATE (EC) 325 MG TAB PO SCH ×2 (09:43→20:13)
[2018-04-20] MEDS: DIGOXIN 0.125 MG TAB PO SCH (12:24)
[2018-04-20] MEDS: CHOLECALCIFEROL 2,000 UNIT CAP PO SCH ×2 (12:24→20:12)
--- NOTE | 2018-04-20 15:22 | CONS ---
Date/Time of Note Date/Time of Note DATE: 04/20/18 TIME: 15:21 Assessment/Plan Assessment/Plan Hospital Course Patient is alert, in no distress, looks comfortable no fevers. Microbiology: Aspirated fluid culture from right lower extremity growing MRSA X-ray of right lower extremity revealed possible osteomyelitis of the distal femur. Antimicrobials: Vancomycin Allergy: Tetracycline Physical examination: Well-nourished well-developed elderly -[place] man who is in no distress. Head atraumatic normocephalic neck is supple chest rise symmetrical breath sounds diminished bases. Heart: S1-S2. Abdomen soft bowel sounds present. Extremities without cyanosis patient has bilateral above-knee amputation, right stump painful to touch Assessment: 1. Leukocytosis secondary to right lower extremity stump MRSA abscess that was drained and probable osteomyelitis 2. Status post recurrent CHF/COPD exacerbation 3. Severe PAD 4. Substance abuse 5. Multiple wounds and pressure sores 6. History of methicillin-resistant Staphylococcus aureus infected graft, status post debridement back in 06/2017, per patient, the rest of the graft was removed at [facility], he completed IV vancomycin back in January 7. History of CABG and [place] 8. Diabetes 9. MRSA nares colonization 10. Medical noncompliance with chronic tobacco use Plan: Clinically unchanged, continue IV vancomycin and consider PICC line placement for long-term IV antibiotics. Consider pain management. DW staff Result Diagram: 04/20/18 0535 04/20/18 0535 Results 24hrs Laboratory Tests Test 04/20/18 05:35 White Blood Count 11.9 H Red Blood Count 4.49 L Hemoglobin 10.6 L Hematocrit 32.7 L Mean Corpuscular Volume 72.8 L Mean Corpuscular Hemoglobin 23.6 L Mean Corpuscular Hemoglobin Concent 32.4 Red Cell Distribution Width 20.5 H Platelet Count 475 H Mean Platelet Volume 10.5 H Immature Granulocytes % 0.700 H Neutrophils % 71.5 Lymphocytes % 15.0 Monocytes % 11.7 H Eosinophils % 0.6 Basophils % 0.5 Nucleated Red Blood Cells % 0.0 Immature Granulocytes # 0.080 H Neutrophils # 8.5 H Lymphocytes # 1.8 Monocytes # 1.4 H Eosinophils # 0.1 Basophils # 0.1 Nucleated Red Blood Cells # 0.0 Erythrocyte Sedimentation Rate 103 H Sodium Level 137 Potassium Level 4.7 Chloride Level 99 Carbon Dioxide Level 28 Anion Gap 10 Blood Urea Nitrogen 24 H Creatinine 1.00 Est Glomerular Filtrat Rate mL/min > 60 Glucose Level 116 Calcium Level 9.5 Phosphorus Level 4.3 Magnesium Level 2.0 C-Reactive Protein 0.9 Consultation Date/Type/Reason Admit Date/Time Mar 29, 2018 at 07:48 Initial Consult Date Type of Consult ID Requesting Provider: SUSAN FAULKNER MD Exam/Review of Systems Vital Signs Vitals Vital Signs Date Temp Pulse Resp B/P (MAP) Pulse Ox O2 O2 Flow FiO2 Time Delivery Rate 04/20/18 98.3 96 20 120/64 100 Room Air 15:08 (82) 04/20/18 21 14:44 Intake and Output 04/19/18 04/19/18 04/20/18 1515:00 23:00 07:00 IntakeIntake Total 320 ml 920 ml 345 ml OutputOutput Total 1350 ml 1800 ml 900 ml BalanceBalance -1030 ml -880 ml -555 ml Medications Medications Current Medications Atorvastatin Calcium (Lipitor) 80 mg QHS PO Last administered on 04/19/18 21:59; Admin Dose 80 MG; Start 03/28/18 at 21:00 Budesonide (Pulmicort (Neb)) 0.5 mg BID RESP THERAPY HHN Last administered on 04/20/18 07:48; Admin Dose 0.5 MG; Start 03/28/18 at 20:00 Ferrous Gluconate (Fergon) 325 mg BID PO Last administered on 04/20/18 09:43; Admin Dose 325 MG; Start 03/28/18 at 21:00 Albuterol/ Ipratropium (Duoneb) 3 ml Q6HWA RESP THERAPY HHN Last administered on 04/20/18 14:44; Admin Dose 3 ML; Start 03/28/18 at 20:00 Montelukast Sodium (Singulair) 10 mg QHS PO Last administered on 04/19/18 21:58; Admin Dose 10 MG; Start 03/28/18 at 21:00 Pantoprazole (Protonix Tab) 40 mg DAILY@06 PO Last administered on 04/20/18 06:22; Admin Dose 40 MG; Start 03/29/18 at 06:00 Spironolactone (Aldactone) 25 mg DAILY PO Last administered on 04/20/18 09:30; Admin Dose 25 MG; Start 03/29/18 at 09:00 Tamsulosin HCl (Flomax) 0.4 mg HS PO Last administered on 04/19/18 21:58; Admin Dose 0.4 MG; Start 03/28/18 at 21:00 Tiotropium [place] (Spiriva) 1 inh DAILY INH Last administered on 04/20/18 09:32; Admin Dose 1 INH; Start 03/29/18 at 09:00 Albuterol (Proventil 0.083% (Neb)) 2.5 mg Q2H RESP THERAPY PRN HHN SHORTNESS OF BREATH Last administered on 04/06/18 19:39; Admin Dose 2.5 MG; Start 03/28/18 at 16:30 IV Flush (NS 3 ml) 3 ml PER PROTOCOL IV ; Start 03/28/18 at 16:30 Ondansetron HCl (Zofran Inj) 4 mg Q6H PRN IV NAUSEA AND/OR VOMITING; Start 04/03 at 16:30 Nitroglycerin (Nitroglycerin (Sl Tab) 0.4 Mg) 1 tab Q5M PRN SL CHEST PAIN; Start 03/28/18 at 16:30 Acetaminophen (Tylenol Tab) 650 mg Q6H PRN PO PAIN LEVEL 1-3 OR FEVER Last administered on 04/13/18 21:11; Admin Dose 650 MG; Start 03/28/18 at 16:30 Docusate Sodium (Colace) 100 mg Q12H PRN PO CONSTIPATION Last administered on 04/06/18 22:50; Admin Dose 100 MG; Start 03/28/18 at 16:30 Magnesium Hydroxide (Milk Of Mag) 30 ml DAILY PRN PO CONSTIPATION Last administered on 04/06/18 22:50; Admin Dose 30 ML; Start 03/28/18 at 16:30 Enoxaparin Sodium (Lovenox) 40 mg DAILY SC Last administered on 04/20/18 09:38; Admin Dose 40 MG; Start 03/29/18 at 09:00 Sacubitril/ Valsartan (Entresto 24 Mg-26 Mg) 1 tab BID PO Last administered on 04/20/18 09:29; Admin Dose 1 TAB; Start 03/28/18 at 21:00 Nystatin (Nystatin Powder) 1 applic BID TOP Last administered on 04/20/18 09 :32; Admin Dose 1 APPLIC; Start 03/28/18 at 21:00 Cholecalciferol (Vitamin D) 2,000 unit BID PO Last administered on 04/20/18 12:24; Admin Dose 2,000 UNIT; Start 03/28/18 at 21:00 Miscellaneous Information (Pending Santyl Order For Wound Care) This patient rivera... PRN PRN XX soiled; Start 03/28/18 at 19:00 Senna/Docusate Sodium (Senokot-S) 2 tab DAILY PO Last administered on 04/19/18 09:05; Admin Dose 2 TAB; Start 03/30/18 at 09:00 Multivitamins Therapeutic (Theragran) 1 tab DAILY PO Last administered on 04/20/18 09:29; Admin Dose 1 TAB; Start 03/30/18 at 09:00 Gabapentin (Neurontin) 200 mg TID PO Last administered on 04/20/18 12:37; Admin Dose 200 MG; Start 03/30/18 at 13:00 Digoxin (Digoxin) 0.125 mg DAILY@13 PO Last administered on 04/20/18 12:24; Admin Dose 0.125 MG; Start 04/02/18 at 13:00 Bisacodyl (Dulcolax) 5 mg DAILY PRN PO CONSTIPATION Last administered on 04/05/18 20:24; Admin Dose 5 MG; Start 04/02/18 at 18:30 Collagenase (Santyl) 1 applic DAILY TOP Last administered on 04/20/18 09:32; Admin Dose 1 APPLIC; Start 04/03/18 at 11:00 Vancomycin HCl (Vanco Iv Per Pharmacy) VANCOMYCIN PER PHARMACY PER PROTOCOL XX ; Start 04/04/18 at 17:30 Furosemide (Lasix) 40 mg DAILY PO Last administered on 04/20/18 09:31; Admin Dose 40 MG; Start 04/06/18 at 09:00 Mupirocin (Bactroban) 1 applic BID TOP Last administered on 04/20/18 09:32; Admin Dose 1 APPLIC; Start 04/06/18 at 21:00 Metoprolol Succinate (Toprol Xl) 50 mg BID PO Last administered on 04/20/18 09:31; Admin Dose 50 MG; Start 04/13/18 at 21:00 Oxycodone HCl (Roxicodone) 30 mg Q6H PRN PO PAIN LEVEL 6-10 Last administered on 04/20/18at 09:42; Admin Dose 30 MG; Start 04/13/18 at 16:00 Vancomycin/Sodium Chloride 250 ml @ 125 mls/hr Q24H IVPB Last administered on 04/20/18at 02:34; Admin Dose 125 MLS/HR; Start 04/17/18 at 23:00 Miscellaneous Information (*Rx Drug Level Order Reminder*) VANCO TR 04/20 AT 2200 ONCE ONCE XX ; Start 04/20/18 at 22:00; Stop 04/20/18 at 22:01 NAYELI MADERA NP Apr 20, 2018 15:22
--- NOTE | 2018-04-20 16:18 | PN ---
Date/Time of Note Date/Time of Note DATE: 04/20/18 TIME: 16:10 Objective Vitals Vital Signs Date Temp Pulse Resp B/P (MAP) Pulse Ox O2 O2 Flow FiO2 Time Delivery Rate 04/20/18 99 16:02 04/20/18 98.3 20 120/64 100 Room Air 15:08 (82) 04/20/18 21 14:44 Intake and Output 04/19/18 04/19/18 04/20/18 1515:00 23:00 07:00 IntakeIntake Total 320 ml 920 ml 345 ml OutputOutput Total 1350 ml 1800 ml 900 ml BalanceBalance -1030 ml -880 ml -555 ml Results Result Diagram: 04/20/18 0535 04/20/18 0535 Medications Medications Current Medications Atorvastatin Calcium (Lipitor) 80 mg QHS PO Last administered on 04/19/18 21:59; Admin Dose 80 MG; Start 03/28/18 at 21:00 Budesonide (Pulmicort (Neb)) 0.5 mg BID RESP THERAPY HHN Last administered on 04/20/18 07:48; Admin Dose 0.5 MG; Start 03/28/18 at 20:00 Ferrous Gluconate (Fergon) 325 mg BID PO Last administered on 04/20/18 09:43; Admin Dose 325 MG; Start 03/28/18 at 21:00 Albuterol/ Ipratropium (Duoneb) 3 ml Q6HWA RESP THERAPY HHN Last administered on 04/20/18 14:44; Admin Dose 3 ML; Start 03/28/18 at 20:00 Montelukast Sodium (Singulair) 10 mg QHS PO Last administered on 04/19/18 21:58; Admin Dose 10 MG; Start 03/28/18 at 21:00 Pantoprazole (Protonix Tab) 40 mg DAILY@06 PO Last administered on 04/20/18 06:22; Admin Dose 40 MG; Start 03/29/18 at 06:00 Spironolactone (Aldactone) 25 mg DAILY PO Last administered on 04/20/18 09:30; Admin Dose 25 MG; Start 03/29/18 at 09:00 Tamsulosin HCl (Flomax) 0.4 mg HS PO Last administered on 1/3/19at 21:58; Admin Dose 0.4 MG; Start 03/28/18 at 21:00 Tiotropium [place] (Spiriva) 1 inh DAILY INH Last administered on 04/20/18 09:32; Admin Dose 1 INH; Start 03/29/18 at 09:00 Albuterol (Proventil 0.083% (Neb)) 2.5 mg Q2H RESP THERAPY PRN HHN SHORTNESS OF BREATH Last administered on 04/06/18 19:39; Admin Dose 2.5 MG; Start 03/28/18 at 16:30 IV Flush (NS 3 ml) 3 ml PER PROTOCOL IV ; Start 03/28/18 at 16:30 Ondansetron HCl (Zofran Inj) 4 mg Q6H PRN IV NAUSEA AND/OR VOMITING; Start 04/03 at 16:30 Nitroglycerin (Nitroglycerin (Sl Tab) 0.4 Mg) 1 tab Q5M PRN SL CHEST PAIN; Start 03/28/18 at 16:30 Acetaminophen (Tylenol Tab) 650 mg Q6H PRN PO PAIN LEVEL 1-3 OR FEVER Last administered on 04/13/18at 21:11; Admin Dose 650 MG; Start 03/28/18 at 16:30 Docusate Sodium (Colace) 100 mg Q12H PRN PO CONSTIPATION Last administered on 04/06/18 22:50; Admin Dose 100 MG; Start 03/28/18 at 16:30 Magnesium Hydroxide (Milk Of Mag) 30 ml DAILY PRN PO CONSTIPATION Last administered on 04/06/18at 22:50; Admin Dose 30 ML; Start 03/28/18 at 16:30 Enoxaparin Sodium (Lovenox) 40 mg DAILY SC Last administered on 04/20/18 09:38; Admin Dose 40 MG; Start 03/29/18 at 09:00 Sacubitril/ Valsartan (Entresto 24 Mg-26 Mg) 1 tab BID PO Last administered on 04/20/18 09:29; Admin Dose 1 TAB; Start 03/28/18 at 21:00 Nystatin (Nystatin Powder) 1 applic BID TOP Last administered on 04/20/18 09 :32; Admin Dose 1 APPLIC; Start 03/28/18 at 21:00 Cholecalciferol (Vitamin D) 2,000 unit BID PO Last administered on 04/20/18 12:24; Admin Dose 2,000 UNIT; Start 03/28/18 at 21:00 Miscellaneous Information (Pending Santyl Order For Wound Care) This patient rivera... PRN PRN XX soiled; Start 03/28/18 at 19:00 Senna/Docusate Sodium (Senokot-S) 2 tab DAILY PO Last administered on 04/19/18 09:05; Admin Dose 2 TAB; Start 03/30/18 at 09:00 Multivitamins Therapeutic (Theragran) 1 tab DAILY PO Last administered on 04/20/18 09:29; Admin Dose 1 TAB; Start 03/30/18 at 09:00 Gabapentin (Neurontin) 200 mg TID PO Last administered on 04/20/18 12:37; Admin Dose 200 MG; Start 03/30/18 at 13:00 Digoxin (Digoxin) 0.125 mg DAILY@13 PO Last administered on 04/20/18 12:24; Admin Dose 0.125 MG; Start 04/02/18 at 13:00 Bisacodyl (Dulcolax) 5 mg DAILY PRN PO CONSTIPATION Last administered on 04/05/18at 20:24; Admin Dose 5 MG; Start 04/02/18 at 18:30 Collagenase (Santyl) 1 applic DAILY TOP Last administered on 04/20/18 09:32; Admin Dose 1 APPLIC; Start 04/03/18 at 11:00 Vancomycin HCl (Vanco Iv Per Pharmacy) VANCOMYCIN PER PHARMACY PER PROTOCOL XX ; Start 04/04/18 at 17:30 Furosemide (Lasix) 40 mg DAILY PO Last administered on 04/20/18 09:31; Admin Dose 40 MG; Start 04/06/18 at 09:00 Mupirocin (Bactroban) 1 applic BID TOP Last administered on 04/20/18 09:32; Admin Dose 1 APPLIC; Start 04/06/18 at 21:00 Metoprolol Succinate (Toprol Xl) 50 mg BID PO Last administered on 04/20/18 09:31; Admin Dose 50 MG; Start 04/13/18 at 21:00 Oxycodone HCl (Roxicodone) 30 mg Q6H PRN PO PAIN LEVEL 6-10 Last administered on 04/20/18 09:42; Admin Dose 30 MG; Start 04/13/18 at 16:00 Vancomycin/Sodium Chloride 250 ml @ 125 mls/hr Q24H IVPB Last administered on 04/20/18at 02:34; Admin Dose 125 MLS/HR; Start 04/17/18 at 23:00 Miscellaneous Information (*Rx Drug Level Order Reminder*) VANCO TR 04/20 AT 2200 ONCE ONCE XX ; Start 04/20/18 at 22:00; Stop 04/20/18 at 22:01 VTE Prophylaxis Risk score (from Ns)>0 risk: 5 SCD applied (from [facility]): No SCD contraindication: other Lines/Catheters IV Catheter Type: Delatorre in Place: No Assessment/Plan Hospital Course Subjective No new acute complaints, Objective Physical exam General: Patient is laying in bed and answers questions appropriately Mentation: Patient is alert and oriented 4, Head: Normocephalic atraumatic Eyes: EOMI, pupils reactive to light Neck: Supple, nontender, midline Respiratory: Clear to auscultation bilaterally Cardiovascular: regular rate, no obvious murmurs Gastrointestinal: non-tender to palpation, bowel sounds heard. Neurological: Moves all extremities spontaneously Musculoskeletal: Bilateral AKA Assessment/Plan 1. Acute infection in right thigh s/p amputation at [facility] - IR drained large amount of pus from right stump and sent for cultures. Awaiting results - Discussed case with vascular who is recommending patient return to [facility] for intervention on right stump given operation was performed there. - ID on board and appreciate recommendations. Will continue current antibiotics - Pain management on board and appreciate consultation. - LE US negative for DVT. 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 Discussed with vascular, Dr. Rodríguez, who said it was chronic and will need to follow up with outpatient clinic at [facility] since RLE amputation was performed there. - Dr. 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 Spoke with orthopedic surgeon who states that due to the severity of patient's vascular issues impeding healing, as well as possible extent of debridement and possibility of hindquarter amputation, he is recommending transfer to a tertiary care center where they could accommodate such complicated issues. -PT/OT on board -MRSA -MRI was unclear due to movement 2/2 patient having pain when on MRI machine -xray femur can not rule out osteo -may need custodial antibiotics leukocytosis- trending down - ID on board and appreciate recommendations Acute on chronic systolic heart failure- resolved - Cardiology consultation appreciated. - Echo results noted from prior admission with EF 20% Wounds on elbows and sacrum - wound consultation appreciated CAD - continue all home medications - stable b/l AKA secondary to PVD Episodes of sustained vtach-stable - monitor - Cardiology on board and continues to adjust medications as needed Disposition -Informed patient of the intent to transfer to tertiary care center for possible extensive debridement and possible amputation including possible hindquarter amputation and patient vehemently refused any further surgical amputation or surgeries that may lead to amputation at all on his right lower extremity, patient states that his quality of life is already so poor with this level of amputation that he would have no life at all if there was additional amputation. At this time patient was introduced to the the possibility of hospice and patient will think about it and patient will inform me tomorrow if hospice is an appropriate choice versus outpatient management with antibiotics which we informed and will only be a Band-Aid as once antibiotics are stopped the infection will continue to rapidly grow. ZACH SIMON Apr 20, 2018 16:18
--- NOTE | 2018-04-20 17:57 | CONS ---
Date/Time of Note Date/Time of Note DATE: 04/20/18 TIME: 17:53 Assessment/Plan Assessment/Plan Hospital Course IMPRESSION: 1. Congestive heart failure exacerbation, systolic, acute on chronic. 2. Cardiomyopathy with severely depressed left ventricular ejection fraction with last being approximately 20%. 3. Hypertension. 4. Dyslipidemia. 5. History of substance abuse. 6. Chronic obstructive pulmonary disease. 7. Bilateral lower extremity amputation and presenting with right stump pain.- s/p IR guidede drainage of collection seen by LE CT 8. Questionable history of intracardiac thrombus not seen by most recent echocardiogram dated 01/06/2018, but with severely depressed ejection fraction at that time of 20%. 9. Tobacco intake. 10. SVT-regular recurrent to 160-180. Broke with PO BB. Also questionable WCT right before. Had recurrent SVT o/n 04/01.Slowly improving S tach 11. Fluid collection at stump site by CTA Recc: -Tele -Continue entresto/BB as tolerated -Continue aldactone -Continue lasix daily -Continue bronchodilators/abx's and f/u cx data -Continue po digoxin -pain control -ongoing surgical eval of limb pain/fluid collection with imaging study today Result Diagram: 04/20/18 0535 04/20/18 0535 Results 24hrs Laboratory Tests Test 04/20/18 05:35 White Blood Count 11.9 H Red Blood Count 4.49 L Hemoglobin 10.6 L Hematocrit 32.7 L Mean Corpuscular Volume 72.8 L Mean Corpuscular Hemoglobin 23.6 L Mean Corpuscular Hemoglobin Concent 32.4 Red Cell Distribution Width 20.5 H Platelet Count 475 H Mean Platelet Volume 10.5 H Immature Granulocytes % 0.700 H Neutrophils % 71.5 Lymphocytes % 15.0 Monocytes % 11.7 H Eosinophils % 0.6 Basophils % 0.5 Nucleated Red Blood Cells % 0.0 Immature Granulocytes # 0.080 H Neutrophils # 8.5 H Lymphocytes # 1.8 Monocytes # 1.4 H Eosinophils # 0.1 Basophils # 0.1 Nucleated Red Blood Cells # 0.0 Erythrocyte Sedimentation Rate 103 H Sodium Level 137 Potassium Level 4.7 Chloride Level 99 Carbon Dioxide Level 28 Anion Gap 10 Blood Urea Nitrogen 24 H Creatinine 1.00 Est Glomerular Filtrat Rate mL/min > 60 Glucose Level 116 Calcium Level 9.5 Phosphorus Level 4.3 Magnesium Level 2.0 C-Reactive Protein 0.9 Consultation Date/Type/Reason Admit Date/Time Mar 29, 2018 at 07:48 Initial Consult Date 03/29/18 Type of Consult cardiology Reason for Consultation CHF Requesting Provider: SUSAN FAULKNER MD Exam/Review of Systems Vital Signs Vitals Vital Signs Date Temp Pulse Resp B/P (MAP) Pulse Ox O2 O2 Flow FiO2 Time Delivery Rate 04/20/18 99 16:02 04/20/18 98.3 20 120/64 100 Room Air 15:08 (82) 04/20/18 21 14:44 Intake and Output 04/19/18 04/19/18 04/20/18 1515:00 23:00 07:00 IntakeIntake Total 320 ml 920 ml 345 ml OutputOutput Total 1350 ml 1800 ml 900 ml BalanceBalance -1030 ml -880 ml -555 ml Exam Review of Systems: CONSTITUTIONAL: No fevers, chills. PULMONARY: No sob CARDIOVASCULAR: No chest pain/palpitations GASTROINTESTINAL: No nausea/vomiting. GENITOURINARY: No hematuria/dysuria. MUSCULOSKELETAL: pain in stump PSYCHIATRIC: The patient denies depression. NEUROLOGIC: No weakness Constitutional: alert Psych: no complaints Head: normocephalic ENMT: mucosa pink and moist Neck: supple, jvd Respiratory: diminished breath sounds (at bases/B) Cardiovascular: regular rate and rhythm Gastrointestinal: soft, non-tender Musculoskeletal: muscle weakness (mild generalized) Extremities: other (bilateral LE amputation) Neurological: other (No focal deficits) Medications Medications Current Medications Atorvastatin Calcium (Lipitor) 80 mg QHS PO Last administered on 04/19/18 21:59; Admin Dose 80 MG; Start 03/28/18 at 21:00 Budesonide (Pulmicort (Neb)) 0.5 mg BID RESP THERAPY HHN Last administered on 04/20/18 07:48; Admin Dose 0.5 MG; Start 03/28/18 at 20:00 Ferrous Gluconate (Fergon) 325 mg BID PO Last administered on 04/20/18 09:43; Admin Dose 325 MG; Start 03/28/18 at 21:00 Albuterol/ Ipratropium (Duoneb) 3 ml Q6HWA RESP THERAPY HHN Last administered on 04/20/18 14:44; Admin Dose 3 ML; Start 03/28/18 at 20:00 Montelukast Sodium (Singulair) 10 mg QHS PO Last administered on 04/19/18 21:58; Admin Dose 10 MG; Start 03/28/18 at 21:00 Pantoprazole (Protonix Tab) 40 mg DAILY@06 PO Last administered on 04/20/18 06:22; Admin Dose 40 MG; Start 03/29/18 at 06:00 Spironolactone (Aldactone) 25 mg DAILY PO Last administered on 04/20/18 09:30; Admin Dose 25 MG; Start 03/29/18 at 09:00 Tamsulosin HCl (Flomax) 0.4 mg HS PO Last administered on 04/19/18 21:58; Admin Dose 0.4 MG; Start 03/28/18 at 21:00 Tiotropium [place] (Spiriva) 1 inh DAILY INH Last administered on 04/20/18 09:32; Admin Dose 1 INH; Start 03/29/18 at 09:00 Albuterol (Proventil 0.083% (Neb)) 2.5 mg Q2H RESP THERAPY PRN HHN SHORTNESS OF BREATH Last administered on 04/06/18at 19:39; Admin Dose 2.5 MG; Start 03/28/18 at 16:30 IV Flush (NS 3 ml) 3 ml PER PROTOCOL IV ; Start 03/28/18 at 16:30 Ondansetron HCl (Zofran Inj) 4 mg Q6H PRN IV NAUSEA AND/OR VOMITING; Start 03/28/18 at 16:30 Nitroglycerin (Nitroglycerin (Sl Tab) 0.4 Mg) 1 tab Q5M PRN SL CHEST PAIN; Start 03/28/18 at 16:30 Acetaminophen (Tylenol Tab) 650 mg Q6H PRN PO PAIN LEVEL 1-3 OR FEVER Last administered on 04/13/18 21:11; Admin Dose 650 MG; Start 03/28/18 at 16:30 Docusate Sodium (Colace) 100 mg Q12H PRN PO CONSTIPATION Last administered on 04/06/18 22:50; Admin Dose 100 MG; Start 03/28/18 at 16:30 Magnesium Hydroxide (Milk Of Mag) 30 ml DAILY PRN PO CONSTIPATION Last administered on 12/21/18at 22:50; Admin Dose 30 ML; Start 03/28/18 at 16:30 Enoxaparin Sodium (Lovenox) 40 mg DAILY SC Last administered on 04/20/18 09:38; Admin Dose 40 MG; Start 03/29/18 at 09:00 Sacubitril/ Valsartan (Entresto 24 Mg-26 Mg) 1 tab BID PO Last administered on 04/20/18 09:29; Admin Dose 1 TAB; Start 03/28/18 at 21:00 Nystatin (Nystatin Powder) 1 applic BID TOP Last administered on 04/20/18 09:32; Admin Dose 1 APPLIC; Start 03/28/18 at 21:00 Cholecalciferol (Vitamin D) 2,000 unit BID PO Last administered on 04/20/18 12:24; Admin Dose 2,000 UNIT; Start 03/28/18 at 21:00 Miscellaneous Information (Pending Santyl Order For Wound Care) This patient rivera... PRN PRN XX soiled; Start 03/28/18 at 19:00 Senna/Docusate Sodium (Senokot-S) 2 tab DAILY PO Last administered on 04/19/18 09:05; Admin Dose 2 TAB; Start 03/30/18 at 09:00 Multivitamins Therapeutic (Theragran) 1 tab DAILY PO Last administered on 04/20/18 09:29; Admin Dose 1 TAB; Start 03/30/18 at 09:00 Gabapentin (Neurontin) 200 mg TID PO Last administered on 04/20/18 12:37; Admin Dose 200 MG; Start 03/30/18 at 13:00 Digoxin (Digoxin) 0.125 mg DAILY@13 PO Last administered on 04/20/18 12:24; Admin Dose 0.125 MG; Start 04/02/18 at 13:00 Bisacodyl (Dulcolax) 5 mg DAILY PRN PO CONSTIPATION Last administered on 04/05/18 20:24; Admin Dose 5 MG; Start 04/02/18 at 18:30 Collagenase (Santyl) 1 applic DAILY TOP Last administered on 04/20/18 09:32; Admin Dose 1 APPLIC; Start 04/03/18 at 11:00 Vancomycin HCl (Vanco Iv Per Pharmacy) VANCOMYCIN PER PHARMACY PER PROTOCOL XX ; Start 04/04/18 at 17:30 Furosemide (Lasix) 40 mg DAILY PO Last administered on 04/20/18 09:31; Admin Dose 40 MG; Start 04/06/18 at 09:00 Mupirocin (Bactroban) 1 applic BID TOP Last administered on 04/20/18 09:32; Admin Dose 1 APPLIC; Start 04/06/18 at 21:00 Metoprolol Succinate (Toprol Xl) 50 mg BID PO Last administered on 04/20/18 09:31; Admin Dose 50 MG; Start 04/13/18 at 21:00 Oxycodone HCl (Roxicodone) 30 mg Q6H PRN PO PAIN LEVEL 6-10 Last administered on 04/20/18 09:42; Admin Dose 30 MG; Start 04/13/18 at 16:00 Vancomycin/Sodium Chloride 250 ml @ 125 mls/hr Q24H IVPB Last administered on 04/20/18 02:34; Admin Dose 125 MLS/HR; Start 04/17/18 at 23:00 Miscellaneous Information (*Rx Drug Level Order Reminder*) JUSTINE TR 04/20 AT 2200 ONCE ONCE XX ; Start 04/20/18 at 22:00; Stop 04/20/18 at 22:01 VIVIAN PRINCE Apr 20, 2018 17:57
[2018-04-20] MEDS: ATORVASTATIN 80 MG TAB PO SCH (20:12)
[2018-04-20] MEDS: TAMSULOSIN (SR) 0.4 MG CAP PO SCH (20:12)
[2018-04-20] MEDS: MONTELUKAST 10 MG TAB PO SCH (20:13)
[2018-04-21] VITALS (10 sets, daily range): BP systolic 11–125; BP diastolic 59–73; PULSE 86–103; RESP 18–22
[2018-04-21] MEDS: VANCOMYCIN 750 MG (PMX) 250 ML IVPB SCH (00:37)
[2018-04-21] MEDS: PANTOPRAZOLE (EC) 40 MG TAB PO SCH (06:39)
[2018-04-21] MEDS: oxyCODONE 15 MG TAB PO PRN ×2 (06:44→12:33)
[2018-04-21] MEDS: ALBUTEROL/IPRATROPIUM (NEB) 3 ML AMP HHN SCH ×3 (08:26→20:55)
[2018-04-21] MEDS: MULTIVITAMINS THERAPEUTIC TAB PO SCH (09:00)
[2018-04-21] MEDS: SACUBITRIL/VALSARTAN (24mg-26mg) TABLET PO SCH ×2 (09:00→21:13)
[2018-04-21] MEDS: TIOTROPIUM 18 MCG CAPSULE INHA DEV INH SCH (09:00)
[2018-04-21] MEDS: METOPROLOL (XL) 50 MG TAB PO SCH ×2 (09:00→21:14)
[2018-04-21] MEDS: FERROUS GLUCONATE (EC) 325 MG TAB PO SCH ×2 (09:46→21:13)
[2018-04-21] MEDS: SPIRONOLACTONE 25 MG TAB PO SCH (09:46)
[2018-04-21] MEDS: GABAPENTIN 100 MG CAP PO SCH ×3 (09:47→21:13)
[2018-04-21] MEDS: SENNA/DOCUSATE NA (8.6MG/50MG) TAB PO SCH (09:47)
[2018-04-21] MEDS: FUROSEMIDE 40 MG TAB PO SCH (09:49)
[2018-04-21] MEDS: COLLAGENASE 5 GM (UD JAR) TOP SCH (09:49)
[2018-04-21] MEDS: MUPIROCIN 2% 22 GM OINT TOP SCH ×2 (09:49→21:14)
[2018-04-21] MEDS: NYSTATIN 30 GM POWDER BTL TOP SCH ×2 (09:49→21:14)
[2018-04-21] MEDS: CHOLECALCIFEROL 2,000 UNIT CAP PO SCH ×2 (09:49→21:14)
[2018-04-21] MEDS: BUDESONIDE (NEB) 0.5MG/2ML AMP HHN SCH ×2 (10:09→20:55)
[2018-04-21] MEDS: ENOXAPARIN 40 MG/0.4 ML SYG SC SCH (10:37)
--- NOTE | 2018-04-21 12:43 | CONS ---
Date/Time of Note Date/Time of Note DATE: 04/21/18 TIME: 12:41 Assessment/Plan Assessment/Plan Assessment/Plan 1. Congestive heart failure exacerbation, systolic, acute on chronic.- with low EF, will keep euvolemic. 2. Cardiomyopathy with severely depressed left ventricular ejection fraction with last being approximately 20%- con't CHf Rx. 3. Hypertension - treated - on meds now. 4. Dyslipidemia. 5. History of substance abuse- d/c advised. 6. Chronic obstructive pulmonary disease. 7. Bilateral lower extremity amputation and presenting with right stump pain.- s/p IR guidede drainage of collection seen by LE CT 8. Questionable history of intracardiac thrombus not seen by most recent echocardiogram dated 01/06/2018, but with severely depressed ejection fraction at that time of 20%. 9. Tobacco intake. 10. SVT-regular recurrent to 160-180. Broke with PO BB. Also questionable WCT right before. Had recurrent SVT o/n 04/01.Slowly improving S tach - sinus now. 11. Fluid collection at stump site by CTA Result Diagram: 04/21/18 0446 04/21/18 0446 Results 24hrs Laboratory Tests Test 04/20/18 22:00 04/21/18 04:46 Vancomycin Level Trough 14.0 White Blood Count 11.7 H Red Blood Count 4.56 L Hemoglobin 10.8 L Hematocrit 33.5 L Mean Corpuscular Volume 73.5 L Mean Corpuscular Hemoglobin 23.7 L Mean Corpuscular Hemoglobin Concent 32.2 Red Cell Distribution Width 20.9 H Platelet Count 441 H Mean Platelet Volume 10.6 H Immature Granulocytes % 0.600 H Neutrophils % 68.4 Lymphocytes % 17.2 Monocytes % 12.8 H Eosinophils % 0.6 Basophils % 0.4 Nucleated Red Blood Cells % 0.0 Immature Granulocytes # 0.070 H Neutrophils # 8.0 H Lymphocytes # 2.0 Monocytes # 1.5 H Eosinophils # 0.1 Basophils # 0.1 Nucleated Red Blood Cells # 0.0 Sodium Level 136 Potassium Level 4.3 Chloride Level 99 Carbon Dioxide Level 26 Anion Gap 11 Blood Urea Nitrogen 22 H Creatinine 0.74 Est Glomerular Filtrat Rate mL/min > 60 Glucose Level 138 Calcium Level 9.4 Phosphorus Level 4.5 Magnesium Level 1.8 Consultation Date/Type/Reason Admit Date/Time Mar 29, 2018 at 07:48 Initial Consult Date Requesting Provider: SUSAN FAULKNER MD 24 HR Interval Summary Free Text/Dictation NO acute events - BP satble - awaiting dispo. ROS: No fever, no chills, no nausea, no vomiting, no diarrhea/constipation No recent weight changes No chest pain, no PND, no orthopnea - chronic SOB No dizziness, blurred vision No thirst, no heat or cold intolerance Exam/Review of Systems Vital Signs Vitals Vital Signs Date Temp Pulse Resp B/P (MAP) Pulse Ox O2 O2 Flow FiO2 Time Delivery Rate 04/21/18 97 12:00 04/21/18 97.6 22 105/68 96 Room Air 11:58 (80) 04/21/18 21 10:13 Intake and Output 04/20/18 04/20/18 04/21/18 1414:59 22:59 06:59 IntakeIntake Total 1000 ml 250 ml OutputOutput Total 1200 ml BalanceBalance -200 ml 250 ml Exam General: WN/WD/NAD, AOx 3 HEENT: Unicetric/atraumatic/EOMI ( follow commands) NECK: JVD elevated, no thyromegaly Lymph: no lymphadenopathy HEART: regular with no S3, II/ systolic murmur at apex, PMI L LUNGS: Coarse sounds ABD: soft, NT, ND, +BS : Intact Neuro: non focal SKIN: chronic changes EXT: amputated Medications Medications Current Medications Atorvastatin Calcium (Lipitor) 80 mg QHS PO Last administered on 04/20/18 20:12; Admin Dose 80 MG; Start 03/28/18 at 21:00 Budesonide (Pulmicort (Neb)) 0.5 mg BID RESP THERAPY HHN Last administered on 04/21/18 10:09; Admin Dose 0.5 MG; Start 03/28/18 at 20:00 Ferrous Gluconate (Fergon) 325 mg BID PO Last administered on 04/21/18 09:46; Admin Dose 325 MG; Start 03/28/18 at 21:00 Albuterol/ Ipratropium (Duoneb) 3 ml Q6HWA RESP THERAPY HHN Last administered on 04/21/18 08:26; Admin Dose 3 ML; Start 03/28/18 at 20:00 Montelukast Sodium (Singulair) 10 mg QHS PO Last administered on 04/20/18 20:13; Admin Dose 10 MG; Start 03/28/18 at 21:00 Pantoprazole (Protonix Tab) 40 mg DAILY@06 PO Last administered on 04/21/18 06:39; Admin Dose 40 MG; Start 03/29/18 at 06:00 Spironolactone (Aldactone) 25 mg DAILY PO Last administered on 04/21/18 09:46; Admin Dose 25 MG; Start 03/29/18 at 09:00 Tamsulosin HCl (Flomax) 0.4 mg HS PO Last administered on 04/20/18 20:12; Admin Dose 0.4 MG; Start 03/28/18 at 21:00 Tiotropium [place] (Spiriva) 1 inh DAILY INH Last administered on 04/20/18 09:32; Admin Dose 1 INH; Start 03/29/18 at 09:00 Albuterol (Proventil 0.083% (Neb)) 2.5 mg Q2H RESP THERAPY PRN HHN SHORTNESS OF BREATH Last administered on 04/06/18 19:39; Admin Dose 2.5 MG; Start 03/28/18 at 16:30 IV Flush (NS 3 ml) 3 ml PER PROTOCOL IV ; Start 03/28/18 at 16:30 Ondansetron HCl (Zofran Inj) 4 mg Q6H PRN IV NAUSEA AND/OR VOMITING; Start 03/28/18 at 16:30 Nitroglycerin (Nitroglycerin (Sl Tab) 0.4 Mg) 1 tab Q5M PRN SL CHEST PAIN; Start 03/28/18 at 16:30 Acetaminophen (Tylenol Tab) 650 mg Q6H PRN PO PAIN LEVEL 1-3 OR FEVER Last administered on 04/13/18at 21:11; Admin Dose 650 MG; Start 03/28/18 at 16:30 Docusate Sodium (Colace) 100 mg Q12H PRN PO CONSTIPATION Last administered on 04/06/18 22:50; Admin Dose 100 MG; Start 03/28/18 at 16:30 Magnesium Hydroxide (Milk Of Mag) 30 ml DAILY PRN PO CONSTIPATION Last administered on 04/06/18at 22:50; Admin Dose 30 ML; Start 03/28/18 at 16:30 Enoxaparin Sodium (Lovenox) 40 mg DAILY SC Last administered on 04/21/18 10:37; Admin Dose 40 MG; Start 03/29/18 at 09:00 Sacubitril/ Valsartan (Entresto 24 Mg-26 Mg) 1 tab BID PO Last administered on 04/20/18 20:17; Admin Dose 1 TAB; Start 03/28/18 at 21:00 Nystatin (Nystatin Powder) 1 applic BID TOP Last administered on 04/21/18 09:49; Admin Dose 1 APPLIC; Start 03/28/18 at 21:00 Cholecalciferol (Vitamin D) 2,000 unit BID PO Last administered on 04/21/18 09:49; Admin Dose 2,000 UNIT; Start 03/28/18 at 21:00 Miscellaneous Information (Pending Santyl Order For Wound Care) This patient rivera... PRN PRN XX soiled; Start 03/28/18 at 19:00 Senna/Docusate Sodium (Senokot-S) 2 tab DAILY PO Last administered on 04/21/18 09:47; Admin Dose 2 TAB; Start 03/30/18 at 09:00 Multivitamins Therapeutic (Theragran) 1 tab DAILY PO Last administered on 04/21/18 09:00; Admin Dose 1 TAB; Start 03/30/18 at 09:00 Gabapentin (Neurontin) 200 mg TID PO Last administered on 04/21/18 09:47; Admin Dose 200 MG; Start 03/30/18 at 13:00 Digoxin (Digoxin) 0.125 mg DAILY@13 PO Last administered on 04/20/18 12:24; Admin Dose 0.125 MG; Start 04/02/18 at 13:00 Bisacodyl (Dulcolax) 5 mg DAILY PRN PO CONSTIPATION Last administered on 04/05/18 20:24; Admin Dose 5 MG; Start 04/02/18 at 18:30 Collagenase (Santyl) 1 applic DAILY TOP Last administered on 04/21/18 09:49; Admin Dose 1 APPLIC; Start 04/03/18 at 11:00 Vancomycin HCl (Vanco Iv Per Pharmacy) VANCOMYCIN PER PHARMACY PER PROTOCOL XX ; Start 04/04/18 at 17:30 Furosemide (Lasix) 40 mg DAILY PO Last administered on 04/21/18 09:49; Admin Dose 40 MG; Start 04/06/18 at 09:00 Mupirocin (Bactroban) 1 applic BID TOP Last administered on 04/21/18 09:49; Admin Dose 1 APPLIC; Start 04/06/18 at 21:00 Metoprolol Succinate (Toprol Xl) 50 mg BID PO Last administered on 04/20/18 20:13; Admin Dose 50 MG; Start 04/13/18 at 21:00 Oxycodone HCl (Roxicodone) 30 mg Q6H PRN PO PAIN LEVEL 6-10 Last administered on 04/21/18 12:33; Admin Dose 30 MG; Start 04/13/18 at 16:00 Vancomycin/Sodium Chloride 250 ml @ 125 mls/hr Q24H IVPB Last administered on 04/21/18 00:37; Admin Dose 125 MLS/HR; Start 04/17/18 at 23:00 PASTORA CUEVAS MD Apr 21, 2018 12:43
--- NOTE | 2018-04-21 13:17 | PN ---
Date/Time of Note Date/Time of Note DATE: 04/21/18 TIME: 13:14 Objective Vitals Vital Signs Date Temp Pulse Resp B/P (MAP) Pulse Ox O2 O2 Flow FiO2 Time Delivery Rate 04/21/18 97 12:00 04/21/18 97.6 22 105/68 96 Room Air 11:58 (80) 04/21/18 21 10:13 Intake and Output 04/20/18 04/20/18 04/21/18 1515:00 23:00 07:00 IntakeIntake Total 1000 ml 250 ml OutputOutput Total 1200 ml BalanceBalance -200 ml 250 ml Results Result Diagram: 04/21/18 0446 04/21/18 0446 Medications Medications Current Medications Atorvastatin Calcium (Lipitor) 80 mg QHS PO Last administered on 04/20/18 20:12; Admin Dose 80 MG; Start 03/28/18 at 21:00 Budesonide (Pulmicort (Neb)) 0.5 mg BID RESP THERAPY HHN Last administered on 04/21/18 10:09; Admin Dose 0.5 MG; Start 03/28/18 at 20:00 Ferrous Gluconate (Fergon) 325 mg BID PO Last administered on 04/21/18 09:46; Admin Dose 325 MG; Start 03/28/18 at 21:00 Albuterol/ Ipratropium (Duoneb) 3 ml Q6HWA RESP THERAPY HHN Last administered on 04/21/18 08:26; Admin Dose 3 ML; Start 03/28/18 at 20:00 Montelukast Sodium (Singulair) 10 mg QHS PO Last administered on 04/20/18 20:13; Admin Dose 10 MG; Start 03/28/18 at 21:00 Pantoprazole (Protonix Tab) 40 mg DAILY@06 PO Last administered on 04/21/18 06:39; Admin Dose 40 MG; Start 03/29/18 at 06:00 Spironolactone (Aldactone) 25 mg DAILY PO Last administered on 04/21/18 09:46; Admin Dose 25 MG; Start 03/29/18 at 09:00 Tamsulosin HCl (Flomax) 0.4 mg HS PO Last administered on 04/20/18 20:12; Admin Dose 0.4 MG; Start 03/28/18 at 21:00 Tiotropium [place] (Spiriva) 1 inh DAILY INH Last administered on 04/20/18 09:32; Admin Dose 1 INH; Start 03/29/18 at 09:00 Albuterol (Proventil 0.083% (Neb)) 2.5 mg Q2H RESP THERAPY PRN HHN SHORTNESS OF BREATH Last administered on 04/06/18 19:39; Admin Dose 2.5 MG; Start 03/28/18 at 16:30 IV Flush (NS 3 ml) 3 ml PER PROTOCOL IV ; Start 03/28/18 at 16:30 Ondansetron HCl (Zofran Inj) 4 mg Q6H PRN IV NAUSEA AND/OR VOMITING; Start 03/28/18 at 16:30 Nitroglycerin (Nitroglycerin (Sl Tab) 0.4 Mg) 1 tab Q5M PRN SL CHEST PAIN; Start 03/28/18 at 16:30 Acetaminophen (Tylenol Tab) 650 mg Q6H PRN PO PAIN LEVEL 1-3 OR FEVER Last administered on 04/13/18at 21:11; Admin Dose 650 MG; Start 03/28/18 at 16:30 Docusate Sodium (Colace) 100 mg Q12H PRN PO CONSTIPATION Last administered on 04/06/18 22:50; Admin Dose 100 MG; Start 03/28/18 at 16:30 Magnesium Hydroxide (Milk Of Mag) 30 ml DAILY PRN PO CONSTIPATION Last administered on 04/06/18 22:50; Admin Dose 30 ML; Start 03/28/18 at 16:30 Enoxaparin Sodium (Lovenox) 40 mg DAILY SC Last administered on 04/21/18 10:37; Admin Dose 40 MG; Start 03/29/18 at 09:00 Sacubitril/ Valsartan (Entresto 24 Mg-26 Mg) 1 tab BID PO Last administered on 04/20/18 20:17; Admin Dose 1 TAB; Start 03/28/18 at 21:00 Nystatin (Nystatin Powder) 1 applic BID TOP Last administered on 04/21/18 09:49; Admin Dose 1 APPLIC; Start 03/28/18 at 21:00 Cholecalciferol (Vitamin D) 2,000 unit BID PO Last administered on 04/21/18 09:49; Admin Dose 2,000 UNIT; Start 03/28/18 at 21:00 Miscellaneous Information (Pending Santyl Order For Wound Care) This patient rivera... PRN PRN XX soiled; Start 03/28/18 at 19:00 Senna/Docusate Sodium (Senokot-S) 2 tab DAILY PO Last administered on 04/21/18 09:47; Admin Dose 2 TAB; Start 03/30/18 at 09:00 Multivitamins Therapeutic (Theragran) 1 tab DAILY PO Last administered on 04/21/18 09:00; Admin Dose 1 TAB; Start 03/30/18 at 09:00 Gabapentin (Neurontin) 200 mg TID PO Last administered on 04/21/18 09:47; Admin Dose 200 MG; Start 03/30/18 at 13:00 Digoxin (Digoxin) 0.125 mg DAILY@13 PO Last administered on 04/20/18 12:24; Admin Dose 0.125 MG; Start 04/02/18 at 13:00 Bisacodyl (Dulcolax) 5 mg DAILY PRN PO CONSTIPATION Last administered on 04/05/18 20:24; Admin Dose 5 MG; Start 04/02/18 at 18:30 Collagenase (Santyl) 1 applic DAILY TOP Last administered on 04/21/18 09:49; Admin Dose 1 APPLIC; Start 04/03/18 at 11:00 Vancomycin HCl (Vanco Iv Per Pharmacy) VANCOMYCIN PER PHARMACY PER PROTOCOL XX ; Start 04/04/18 at 17:30 Furosemide (Lasix) 40 mg DAILY PO Last administered on 04/21/18 09:49; Admin Dose 40 MG; Start 04/06/18 at 09:00 Mupirocin (Bactroban) 1 applic BID TOP Last administered on 04/21/18 09:49; Admin Dose 1 APPLIC; Start 04/06/18 at 21:00 Metoprolol Succinate (Toprol Xl) 50 mg BID PO Last administered on 04/20/18 20:13; Admin Dose 50 MG; Start 04/13/18 at 21:00 Oxycodone HCl (Roxicodone) 30 mg Q6H PRN PO PAIN LEVEL 6-10 Last administered on 04/21/18 12:33; Admin Dose 30 MG; Start 04/13/18 at 16:00 Vancomycin/Sodium Chloride 250 ml @ 125 mls/hr Q24H IVPB Last administered on 04/21/18at 00:37; Admin Dose 125 MLS/HR; Start 04/17/18 at 23:00 Hydromorphone HCl (Dilaudid) 1 mg Q4H PRN IV SEVERE PAIN LEVEL 7-10; Start 04/21/18 at 13:30 VTE Prophylaxis Risk score (from Ns)>0 risk: 9 SCD applied (from Ns): No SCD contraindication: other Lines/Catheters IV Catheter Type: Delatorre in Place: No Assessment/Plan Hospital Course Subjective No new acute complaints, Objective Physical exam General: Patient is laying in bed and answers questions appropriately Mentation: Patient is alert and oriented 4, Head: Normocephalic atraumatic Eyes: EOMI, pupils reactive to light Neck: Supple, nontender, midline Respiratory: Clear to auscultation bilaterally Cardiovascular: regular rate, no obvious murmurs Gastrointestinal: non-tender to palpation, bowel sounds heard. Neurological: Moves all extremities spontaneously Musculoskeletal: Bilateral AKA Assessment/Plan 1. Acute infection in right thigh s/p amputation at [facility] - IR drained large amount of pus from right stump and sent for cultures. Awaiting results - Discussed case with vascular who is recommending patient return to [facility] for intervention on right stump given operation was performed there. - ID on board and appreciate recommendations. Will continue current antibiotics - Pain management on board and appreciate consultation. - LE US negative for DVT. 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 Discussed with vascular, Dr. Rodríguez, who said it was chronic and will need to follow up with outpatient clinic at [facility] since RLE amputation was performed there. - Dr. 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 Spoke with orthopedic surgeon who states that due to the severity of patient's vascular issues impeding healing, as well as possible extent of debridement and possibility of hindquarter amputation, he is recommending transfer to a tertiary care center where they could accommodate such complicated issues. Patient however currently is refusing transfer for possible further workup including debridement and possible amputation. Patient states that he does not want any further workup done on his leg and states that he will try just antibiotics as he does not want any debridement surgery or amputation on his leg. The importance of further workup including consequences including and debility were explained to patient and patient states that he chooses to just do antibiotics will follow up with the vascular surgeon in the outpatient setting. The patient is alert and oriented x4 -PT/OT on board -MRSA -MRI was unclear due to movement 2/2 patient having pain when on MRI machine -xray femur can not rule out osteo -may need longterm antibiotics leukocytosis- trending down - ID on board and appreciate recommendations Acute on chronic systolic heart failure- resolved - Cardiology consultation appreciated. - Echo results noted from prior admission with EF 20% Wounds on elbows and sacrum - wound consultation appreciated CAD - continue all home medications - stable b/l AKA secondary to PVD Episodes of sustained vtach-stable - monitor - Cardiology on board and continues to adjust medications as needed Disposition -Informed patient of the intent to transfer to tertiary care [place] for possible extensive debridement and possible amputation including possible hindquarter amputation and patient vehemently refused any further surgical amputation or surgeries that may lead to amputation at all on his right lower extremity, patient states that his quality of life is already so poor with this level of amputation that he would have no life at all if there was additional amputation. Patient stated that he also did not want to do further debridement. Patient at this time did not want to undergo hospice however stated that he would like to try IV antibiotics in the outpatient setting to follow-up with vascular. Given patient's multiple instances of not following up with vascular surgery, will need to ensure vascular appointment before discharge with IV antibiotics. ZACH SIMON Apr 21, 2018 13:17
[2018-04-21] MEDS ORDERED: HYDROmorphONE 1 MG/ML SYG IV PRN (13:30)
[2018-04-21] MEDS: DIGOXIN 0.125 MG TAB PO SCH (14:34)
[2018-04-21] MEDS: HYDROmorphONE 2 MG/ML SYG IV PRN (18:43)
--- NOTE | 2018-04-21 19:30 | CONS ---
Date/Time of Note Date/Time of Note DATE: 04/21/18 TIME: 19:28 Assessment/Plan Assessment/Plan Hospital Course 1315 Patient is alert, in no distress, looks comfortable no fevers. Microbiology: Aspirated fluid culture from right lower extremity growing MRSA X-ray of right lower extremity revealed possible osteomyelitis of the distal femur. Antimicrobials: Vancomycin Allergy: Tetracycline Physical examination: Well-nourished well-developed elderly -[place] man who is in no distress. Head atraumatic normocephalic neck is supple chest rise symmetrical breath sounds diminished bases. Heart: S1-S2. Abdomen soft bowel sounds present. Extremities without cyanosis patient has bilateral above-knee amputation, right stump painful to touch Assessment: 1. Leukocytosis secondary to right lower extremity stump MRSA abscess that was drained and probable osteomyelitis 2. Status post recurrent CHF/COPD exacerbation 3. Severe PAD 4. Substance abuse 5. Multiple wounds and pressure sores 6. History of methicillin-resistant Staphylococcus aureus infected graft, status post debridement back in 06/2017, per patient, the rest of the graft was removed at [facility], he completed IV vancomycin back in January 7. History of CABG and [place] 8. Diabetes 9. MRSA nares colonization 10. Medical noncompliance with chronic tobacco use Plan: Clinically unchanged, continue IV vancomycin and consider PICC line placement for long-term IV antibiotics. Pt refusing another surgical intervention/higher level of amputation. Needs to be on abx life long, PO Doxycycline after 8 wks IV Vanco [facility] staff Result Diagram: 04/21/18 0446 04/21/18 0446 Results 24hrs Laboratory Tests Test 04/20/18 22:00 04/21/18 04:46 Vancomycin Level Trough 14.0 White Blood Count 11.7 H Red Blood Count 4.56 L Hemoglobin 10.8 L Hematocrit 33.5 L Mean Corpuscular Volume 73.5 L Mean Corpuscular Hemoglobin 23.7 L Mean Corpuscular Hemoglobin Concent 32.2 Red Cell Distribution Width 20.9 H Platelet Count 441 H Mean Platelet Volume 10.6 H Immature Granulocytes % 0.600 H Neutrophils % 68.4 Lymphocytes % 17.2 Monocytes % 12.8 H Eosinophils % 0.6 Basophils % 0.4 Nucleated Red Blood Cells % 0.0 Immature Granulocytes # 0.070 H Neutrophils # 8.0 H Lymphocytes # 2.0 Monocytes # 1.5 H Eosinophils # 0.1 Basophils # 0.1 Nucleated Red Blood Cells # 0.0 Sodium Level 136 Potassium Level 4.3 Chloride Level 99 Carbon Dioxide Level 26 Anion Gap 11 Blood Urea Nitrogen 22 H Creatinine 0.74 Est Glomerular Filtrat Rate mL/min > 60 Glucose Level 138 Calcium Level 9.4 Phosphorus Level 4.5 Magnesium Level 1.8 Consultation Date/Type/Reason Admit Date/Time Mar 29, 2018 at 07:48 Initial Consult Date Type of Consult ID Requesting Provider: SUSAN FAULKNER MD Exam/Review of Systems Vital Signs Vitals Vital Signs Date Temp Pulse Resp B/P (MAP) Pulse Ox O2 O2 Flow FiO2 Time Delivery Rate 04/21/18 100 16:00 04/21/18 97.6 22 106/59 96 Room Air 15:19 (75) 04/21/18 21 15:06 Intake and Output 04/20/18 04/20/18 04/21/18 1515:00 23:00 07:00 IntakeIntake Total 1000 ml 250 ml OutputOutput Total 1200 ml BalanceBalance -200 ml 250 ml Medications Medications Current Medications Atorvastatin Calcium (Lipitor) 80 mg QHS PO Last administered on 04/20/18 20:12; Admin Dose 80 MG; Start 03/28/18 at 21:00 Budesonide (Pulmicort (Neb)) 0.5 mg BID RESP THERAPY HHN Last administered on 04/21/18 10:09; Admin Dose 0.5 MG; Start 03/28/18 at 20:00 Ferrous Gluconate (Fergon) 325 mg BID PO Last administered on 04/21/18 09:46; Admin Dose 325 MG; Start 03/28/18 at 21:00 Albuterol/ Ipratropium (Duoneb) 3 ml Q6HWA RESP THERAPY HHN Last administered on 04/21/18 15:05; Admin Dose 3 ML; Start 03/28/18 at 20:00 Montelukast Sodium (Singulair) 10 mg QHS PO Last administered on 04/20/18 20:13; Admin Dose 10 MG; Start 03/28/18 at 21:00 Pantoprazole (Protonix Tab) 40 mg DAILY@06 PO Last administered on 04/21/18 06:39; Admin Dose 40 MG; Start 03/29/18 at 06:00 Spironolactone (Aldactone) 25 mg DAILY PO Last administered on 04/21/18 09:46; Admin Dose 25 MG; Start 03/29/18 at 09:00 Tamsulosin HCl (Flomax) 0.4 mg HS PO Last administered on 04/20/18 20:12; Admin Dose 0.4 MG; Start 03/28/18 at 21:00 Tiotropium [place] (Spiriva) 1 inh DAILY INH Last administered on 04/20/18 09:32; Admin Dose 1 INH; Start 03/29/18 at 09:00 Albuterol (Proventil 0.083% (Neb)) 2.5 mg Q2H RESP THERAPY PRN HHN SHORTNESS OF BREATH Last administered on 04/06/18 19:39; Admin Dose 2.5 MG; Start 03/28/18 at 16:30 IV Flush (NS 3 ml) 3 ml PER PROTOCOL IV ; Start 03/28/18 at 16:30 Ondansetron HCl (Zofran Inj) 4 mg Q6H PRN IV NAUSEA AND/OR VOMITING; Start 03/28/18 at 16:30 Nitroglycerin (Nitroglycerin (Sl Tab) 0.4 Mg) 1 tab Q5M PRN SL CHEST PAIN; Start 03/28/18 at 16:30 Acetaminophen (Tylenol Tab) 650 mg Q6H PRN PO PAIN LEVEL 1-3 OR FEVER Last administered on 04/13/18at 21:11; Admin Dose 650 MG; Start 03/28/18 at 16:30 Docusate Sodium (Colace) 100 mg Q12H PRN PO CONSTIPATION Last administered on 04/06/18at 22:50; Admin Dose 100 MG; Start 03/28/18 at 16:30 Magnesium Hydroxide (Milk Of Mag) 30 ml DAILY PRN PO CONSTIPATION Last administered on 04/06/18 22:50; Admin Dose 30 ML; Start 03/28/18 at 16:30 Enoxaparin Sodium (Lovenox) 40 mg DAILY SC Last administered on 04/21/18 10:37; Admin Dose 40 MG; Start 03/29/18 at 09:00 Sacubitril/ Valsartan (Entresto 24 Mg-26 Mg) 1 tab BID PO Last administered on 04/20/18 20:17; Admin Dose 1 TAB; Start 03/28/18 at 21:00 Nystatin (Nystatin Powder) 1 applic BID TOP Last administered on 04/21/18 09:49; Admin Dose 1 APPLIC; Start 03/28/18 at 21:00 Cholecalciferol (Vitamin D) 2,000 unit BID PO Last administered on 04/21/18 09:49; Admin Dose 2,000 UNIT; Start 03/28/18 at 21:00 Miscellaneous Information (Pending Santyl Order For Wound Care) This patient rivera... PRN PRN XX soiled; Start 03/28/18 at 19:00 Senna/Docusate Sodium (Senokot-S) 2 tab DAILY PO Last administered on 04/21/18 09:47; Admin Dose 2 TAB; Start 03/30/18 at 09:00 Multivitamins Therapeutic (Theragran) 1 tab DAILY PO Last administered on 04/21/18 09:00; Admin Dose 1 TAB; Start 03/30/18 at 09:00 Gabapentin (Neurontin) 200 mg TID PO Last administered on 04/21/18 14:34; Admin Dose 200 MG; Start 03/30/18 at 13:00 Digoxin (Digoxin) 0.125 mg DAILY@13 PO Last administered on 04/21/18 14:34; A dmin Dose 0.125 MG; Start 04/02/18 at 13:00 Bisacodyl (Dulcolax) 5 mg DAILY PRN PO CONSTIPATION Last administered on 04/05/18 20:24; Admin Dose 5 MG; Start 04/02/18 at 18:30 Collagenase (Santyl) 1 applic DAILY TOP Last administered on 04/21/18 09:49; Admin Dose 1 APPLIC; Start 04/03/18 at 11:00 Vancomycin HCl (Vanco Iv Per Pharmacy) VANCOMYCIN PER PHARMACY PER PROTOCOL XX ; Start 04/04/18 at 17:30 Furosemide (Lasix) 40 mg DAILY PO Last administered on 04/21/18 09:49; Admin Dose 40 MG; Start 04/06/18 at 09:00 Mupirocin (Bactroban) 1 applic BID TOP Last administered on 04/21/18 09:49; Admin Dose 1 APPLIC; Start 04/06/18 at 21:00 Metoprolol Succinate (Toprol Xl) 50 mg BID PO Last administered on 04/20/18 20:13; Admin Dose 50 MG; Start 04/13/18 at 21:00 Oxycodone HCl (Roxicodone) 30 mg Q6H PRN PO PAIN LEVEL 6-10 Last administered on 04/21/18 12:33; Admin Dose 30 MG; Start 04/13/18 at 16:00 Vancomycin/Sodium Chloride 250 ml @ 125 mls/hr Q24H IVPB Last administered on 04/21/18 00:37; Admin Dose 125 MLS/HR; Start 04/17/18 at 23:00 Hydromorphone HCl (Dilaudid) 2 mg Q4H PRN IV SEVERE PAIN LEVEL 7-10 Last administered on 04/21/18 18:43; Admin Dose 2 MG; Start 04/21/18 at 16:00 NAYELI MADERA NP Apr 21, 2018 19:30
[2018-04-21] MEDS: ATORVASTATIN 80 MG TAB PO SCH (21:13)
[2018-04-21] MEDS: MONTELUKAST 10 MG TAB PO SCH (21:14)
[2018-04-21] MEDS: TAMSULOSIN (SR) 0.4 MG CAP PO SCH (21:17)
[2018-04-22] VITALS (9 sets, daily range): BP systolic 98–133; BP diastolic 59–71; PULSE 92–104; RESP 18–22
[2018-04-22] MEDS: VANCOMYCIN 750 MG (PMX) 250 ML IVPB SCH (00:03)
[2018-04-22] MEDS: HYDROmorphONE 2 MG/ML SYG IV PRN ×5 (00:12→23:02)
[2018-04-22] MEDS: PANTOPRAZOLE (EC) 40 MG TAB PO SCH (05:24)
[2018-04-22] MEDS: ALBUTEROL/IPRATROPIUM (NEB) 3 ML AMP HHN SCH ×3 (08:37→21:42)
[2018-04-22] MEDS: GABAPENTIN 100 MG CAP PO SCH ×3 (08:49→20:36)
[2018-04-22] MEDS: SPIRONOLACTONE 25 MG TAB PO SCH (08:49)
[2018-04-22] MEDS: COLLAGENASE 5 GM (UD JAR) TOP SCH (08:49)
[2018-04-22] MEDS: MUPIROCIN 2% 22 GM OINT TOP SCH ×2 (08:49→20:37)
[2018-04-22] MEDS: NYSTATIN 30 GM POWDER BTL TOP SCH ×2 (08:49→20:37)
[2018-04-22] MEDS: FUROSEMIDE 40 MG TAB PO SCH (08:50)
[2018-04-22] MEDS: FERROUS GLUCONATE (EC) 325 MG TAB PO SCH ×2 (08:50→20:35)
[2018-04-22] MEDS: SENNA/DOCUSATE NA (8.6MG/50MG) TAB PO SCH (08:50)
[2018-04-22] MEDS: CHOLECALCIFEROL 2,000 UNIT CAP PO SCH ×2 (08:50→20:37)
[2018-04-22] MEDS: MULTIVITAMINS THERAPEUTIC TAB PO SCH (08:51)
[2018-04-22] MEDS: ENOXAPARIN 40 MG/0.4 ML SYG SC SCH (08:57)
[2018-04-22] MEDS: METOPROLOL (XL) 50 MG TAB PO SCH ×2 (09:00→20:36)
[2018-04-22] MEDS: SACUBITRIL/VALSARTAN (24mg-26mg) TABLET PO SCH ×2 (09:00→20:35)
[2018-04-22] MEDS: TIOTROPIUM 18 MCG CAPSULE INHA DEV INH SCH (09:00)
[2018-04-22] MEDS: BUDESONIDE (NEB) 0.5MG/2ML AMP HHN SCH ×2 (10:36→21:42)
[2018-04-22] MEDS ORDERED: LIDOCAINE 1% (MPF) 5 ML VIAL SC ONE (11:30)
[2018-04-22] MEDS: DIGOXIN 0.125 MG TAB PO SCH (12:47)
--- NOTE | 2018-04-22 12:49 | PN ---
Date/Time of Note Date/Time of Note DATE: 04/22/18 TIME: 12:48 Objective Vitals Vital Signs Date Temp Pulse Resp B/P (MAP) Pulse Ox O2 O2 Flow FiO2 Time Delivery Rate 04/22/18 103 12:00 04/22/18 98.6 22 112/71 96 Room Air 11:31 (85) 04/22/18 21 10:38 Intake and Output 04/21/18 04/21/18 04/22/18 1515:00 23:00 07:00 IntakeIntake Total 500 ml 720 ml 600 ml OutputOutput Total 1000 ml 1800 ml 1200 ml BalanceBalance -500 ml -1080 ml -600 ml Results Result Diagram: 04/22/18 0449 04/22/189 Medications Medications Current Medications Atorvastatin Calcium (Lipitor) 80 mg QHS PO Last administered on 04/21/18 21:13; Admin Dose 80 MG; Start 03/28/18 at 21:00 Budesonide (Pulmicort (Neb)) 0.5 mg BID RESP THERAPY HHN Last administered on 04/22/18 10:36; Admin Dose 0.5 MG; Start 03/28/18 at 20:00 Ferrous Gluconate (Fergon) 325 mg BID PO Last administered on 04/22/18 08:50; Admin Dose 325 MG; Start 03/28/18 at 21:00 Albuterol/ Ipratropium (Duoneb) 3 ml Q6HWA RESP THERAPY HHN Last administered on 04/22/18 08:37; Admin Dose 3 ML; Start 03/28/18 at 20:00 Montelukast Sodium (Singulair) 10 mg QHS PO Last administered on 04/21/18 21:14; Admin Dose 10 MG; Start 03/28/18 at 21:00 Pantoprazole (Protonix Tab) 40 mg DAILY@06 PO Last administered on 04/22/18 05:24; Admin Dose 40 MG; Start 03/29/18 at 06:00 Spironolactone (Aldactone) 25 mg DAILY PO Last administered on 04/22/18 08:49; Admin Dose 25 MG; Start 03/29/18 at 09:00 Tamsulosin HCl (Flomax) 0.4 mg HS PO Last administered on 04/21/18 21:17; Admin Dose 0.4 MG; Start 03/28/18 at 21:00 Tiotropium [place] (Spiriva) 1 inh DAILY INH Last administered on 04/22/18 09:00; Admin Dose 1 INH; Start 03/29/18 at 09:00 Albuterol (Proventil 0.083% (Neb)) 2.5 mg Q2H RESP THERAPY PRN HHN SHORTNESS OF BREATH Last administered on 04/06/18 19:39; Admin Dose 2.5 MG; Start 03/28/18 at 16:30 IV Flush (NS 3 ml) 3 ml PER PROTOCOL IV ; Start 03/28/18 at 16:30 Ondansetron HCl (Zofran Inj) 4 mg Q6H PRN IV NAUSEA AND/OR VOMITING; Start at 16:30 Nitroglycerin (Nitroglycerin (Sl Tab) 0.4 Mg) 1 tab Q5M PRN SL CHEST PAIN; Start 03/28/18 at 16:30 Acetaminophen (Tylenol Tab) 650 mg Q6H PRN PO PAIN LEVEL 1-3 OR FEVER Last administered on 04/13/18at 21:11; Admin Dose 650 MG; Start 03/28/18 at 16:30 Docusate Sodium (Colace) 100 mg Q12H PRN PO CONSTIPATION Last administered on 04/06/18 22:50; Admin Dose 100 MG; Start 03/28/18 at 16:30 Magnesium Hydroxide (Milk Of Mag) 30 ml DAILY PRN PO CONSTIPATION Last administered on 04/06/18 22:50; Admin Dose 30 ML; Start 03/28/18 at 16:30 Enoxaparin Sodium (Lovenox) 40 mg DAILY SC Last administered on 04/22/18 08:57; Admin Dose 40 MG; Start 03/29/18 at 09:00 Sacubitril/ Valsartan (Entresto 24 Mg-26 Mg) 1 tab BID PO Last administered on 04/21/18 21:13; Admin Dose 1 TAB; Start 03/28/18 at 21:00 Nystatin (Nystatin Powder) 1 applic BID TOP Last administered on 04/22/18 0 8:49; Admin Dose 1 APPLIC; Start 03/28/18 at 21:00 Cholecalciferol (Vitamin D) 2,000 unit BID PO Last administered on 04/22/18 08:50; Admin Dose 2,000 UNIT; Start 03/28/18 at 21:00 Miscellaneous Information (Pending Santyl Order For Wound Care) This patient rivera... PRN PRN XX soiled; Start 03/28/18 at 19:00 Senna/Docusate Sodium (Senokot-S) 2 tab DAILY PO Last administered on 04/22/18 08:50; Admin Dose 2 TAB; Start 03/30/18 at 09:00 Multivitamins Therapeutic (Theragran) 1 tab DAILY PO Last administered on 04/22/18 08:51; Admin Dose 1 TAB; Start 03/30/18 at 09:00 Gabapentin (Neurontin) 200 mg TID PO Last administered on 04/22/18 12:47; Admin Dose 200 MG; Start 03/30/18 at 13:00 Digoxin (Digoxin) 0.125 mg DAILY@13 PO Last administered on 04/22/18 12:47; Admin Dose 0.125 MG; Start 04/02/18 at 13:00 Bisacodyl (Dulcolax) 5 mg DAILY PRN PO CONSTIPATION Last administered on 04/05/18at 20:24; Admin Dose 5 MG; Start 04/02/18 at 18:30 Collagenase (Santyl) 1 applic DAILY TOP Last administered on 04/22/18 08:49; Admin Dose 1 APPLIC; Start 04/03/18 at 11:00 Vancomycin HCl (Vanco Iv Per Pharmacy) VANCOMYCIN PER PHARMACY PER PROTOCOL XX ; Start 04/04/18 at 17:30 Furosemide (Lasix) 40 mg DAILY PO Last administered on 04/22/18 08:50; Admin Dose 40 MG; Start 04/06/18 at 09:00 Mupirocin (Bactroban) 1 applic BID TOP Last administered on 04/22/18 08:49; Admin Dose 1 APPLIC; Start 04/06/18 at 21:00 Metoprolol Succinate (Toprol Xl) 50 mg BID PO Last administered on 04/21/18 21: 14; Admin Dose 50 MG; Start 04/13/18 at 21:00 Oxycodone HCl (Roxicodone) 30 mg Q6H PRN PO PAIN LEVEL 6-10 Last administered on 04/21/18 12:33; Admin Dose 30 MG; Start 04/13/18 at 16:00 Vancomycin/Sodium Chloride 250 ml @ 125 mls/hr Q24H IVPB Last administered on 04/22/18at 00:03; Admin Dose 125 MLS/HR; Start 04/17/18 at 23:00 Hydromorphone HCl (Dilaudid) 2 mg Q4H PRN IV SEVERE PAIN LEVEL 7-10 Last administered on 04/22/18at 10:51; Admin Dose 2 MG; Start 04/21/18 at 16:00 VTE Prophylaxis Risk score (from Ns)>0 risk: 3 SCD applied (from [facility]): No SCD contraindication: other Lines/Catheters IV Catheter Type: Delatorre in Place: No Assessment/Plan Hospital Course Subjective No new acute complaints, Objective Physical exam General: Patient is laying in bed and answers questions appropriately Mentation: Patient is alert and oriented 4, Head: Normocephalic atraumatic Eyes: EOMI, pupils reactive to light Neck: Supple, nontender, midline Respiratory: Clear to auscultation bilaterally Cardiovascular: regular rate, no obvious murmurs Gastrointestinal: non-tender to palpation, bowel sounds heard. Neurological: Moves all extremities spontaneously Musculoskeletal: Bilateral AKA Assessment/Plan 1. Acute infection in right thigh s/p amputation at [facility] - IR drained large amount of pus from right stump and sent for cultures. Awaiting results - Discussed case with vascular who is recommending patient return to [facility] for intervention on right stump given operation was performed there. - ID on board and appreciate recommendations. Will continue current antibiotics - Pain management on board and appreciate consultation. - LE US negative for DVT. 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 Discussed with vascular, Dr. Rodríguez, who said it was chronic and will need to follow up with outpatient clinic at [facility] since RLE amputation was performed there. - Dr. 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 Spoke with orthopedic surgeon who states that due to the severity of patient's vascular issues impeding healing, as well as possible extent of debridement and possibility of hindquarter amputation, he is recommending transfer to a tertiary care center where they could accommodate such complicated issues. Patient however currently is refusing transfer for possible further workup including debridement and possible amputation. Patient states that he does not want any further workup done on his leg and states that he will try just antibiotics as he does not want any debridement surgery or amputation on his leg. The importance of further workup including consequences including and debility were explained to patient and patient states that he chooses to just do antibiotics will follow up with the vascular surgeon in the outpatient setting. The patient is alert and oriented x4 -PT/OT on board -MRSA -MRI was unclear due to movement 2/2 patient having pain when on MRI machine -xray femur can not rule out osteo -may need [facility]cc antibiotics leukocytosis- trending down - ID on board and appreciate recommendations Acute on chronic systolic heart failure- resolved - Cardiology consultation appreciated. - Echo results noted from prior admission with EF 20% Wounds on elbows and sacrum - wound consultation appreciated CAD - continue all home medications - stable b/l AKA secondary to PVD Episodes of sustained vtach-stable - monitor - Cardiology on board and continues to adjust medications as needed Disposition -Informed patient of the intent to transfer to tertiary care center for possible extensive debridement and possible amputation including possible hindquarter amputation and patient vehemently refused any further surgical amputation or surgeries that may lead to amputation at all on his right lower extremity, patient states that his quality of life is already so poor with this level of amputation that he would have no life at all if there was additional amputation. Patient stated that he also did not want to do further debridement. Patient at this time did not want to undergo hospice however stated that he would like to try IV antibiotics in the outpatient setting to follow-up with sai garcia. Given patient's multiple instances of not following up with vascular surgery, will need to ensure vascular appointment before discharge with IV antibiotics. ZACH SIMON Apr 22, 2018 12:49
--- NOTE | 2018-04-22 13:12 | CONS ---
Date/Time of Note Date/Time of Note DATE: 04/22/18 TIME: 13:11 Assessment/Plan Assessment/Plan Assessment/Plan 1. Congestive heart failure exacerbation, systolic, acute on chronic.- with low EF, will keep euvolemic - reasonable fluid satus. 2. Cardiomyopathy with severely depressed left ventricular ejection fraction with last being approximately 20%- con't CHF Rx. 3. Hypertension - treated - on meds now. 4. Dyslipidemia. 5. History of substance abuse- d/c advised. 6. Chronic obstructive pulmonary disease - no active wheezing now. 7. Bilateral lower extremity amputation and presenting with right stump pain.- s/p IR guidede drainage of collection seen by LE CT - vasculr follows - on anti- bx 8. Questionable history of intracardiac thrombus not seen by most recent echocardiogram dated 01/06/2018, but with severely depressed ejection fraction at that time of 20%. 9. Tobacco intake. 10. SVT-regular recurrent to 160-180. Broke with PO BB. Also questionable WCT right before. Had recurrent SVT o/n 04/01.Slowly improving S tach - sinus now. 11. Fluid collection at stump site by CTA Result Diagram: 04/22/18 0449 04/22/18 0449 Results 24hrs Laboratory Tests Test 04/22/18 04:49 White Blood Count 12.1 H Red Blood Count 4.42 L Hemoglobin 10.4 L Hematocrit 32.3 L Mean Corpuscular Volume 73.1 L Mean Corpuscular Hemoglobin 23.5 L Mean Corpuscular Hemoglobin Concent 32.2 Red Cell Distribution Width 21.1 H Platelet Count 420 H Mean Platelet Volume 10.7 H Immature Granulocytes % 0.700 H Neutrophils % 71.7 Lymphocytes % 14.9 L Monocytes % 11.6 H Eosinophils % 0.6 Basophils % 0.5 Nucleated Red Blood Cells % 0.0 Immature Granulocytes # 0.080 H Neutrophils # 8.7 H Lymphocytes # 1.8 Monocytes # 1.4 H Eosinophils # 0.1 Basophils # 0.1 Nucleated Red Blood Cells # 0.0 Sodium Level 134 L Potassium Level 4.4 Chloride Level 101 Carbon Dioxide Level 25 Anion Gap 8 Blood Urea Nitrogen 20 Creatinine 0.71 Est Glomerular Filtrat Rate mL/min > 60 Glucose Level 118 Calcium Level 9.4 Phosphorus Level 4.6 Magnesium Level 1.9 Consultation Date/Type/Reason Admit Date/Time Mar 29, 2018 at 07:48 Initial Consult Date Requesting Provider: SUSAN FAULKNER MD 24 HR Interval Summary Free Text/Dictation NO acute events - pt on [id number], vascular team follows ROS: No fever, no chills, no nausea, no vomiting, no diarrhea/constipation No recent weight changes No chest pain, no PND, no orthopnea - mild chronic SOB No dizziness, blurred vision No thirst, no heat or cold intolerance Exam/Review of Systems Vital Signs Vitals Vital Signs Date Temp Pulse Resp B/P (MAP) Pulse Ox O2 O2 Flow FiO2 Time Delivery Rate 04/22/18 103 12:00 04/22/18 98.6 22 112/71 96 Room Air 11:31 (85) 04/22/18 21 10:38 Intake and Output 04/21/18 04/21/18 04/22/18 1515:00 23:00 07:00 IntakeIntake Total 500 ml 720 ml 600 ml OutputOutput Total 1000 ml 1800 ml 1200 ml BalanceBalance -500 ml -1080 ml -600 ml Exam General: WN/WD/NAD, AOx 3 HEENT: Unicetric/atraumatic/EOMI (follow commands) NECK: JVD elevated, no thyromegaly Lymph: no lymphadenopathy HEART: regular with no S3, II/ systolic murmur at apex, PMIL LUNGS: Coarse sounds ABD: soft, NT, ND, +BS : Intact Neuro: non focal SKIN: chronic changes EXT: amputee, drainage Medications Medications Current Medications Atorvastatin Calcium (Lipitor) 80 mg QHS PO Last administered on 04/21/18 21:13; Admin Dose 80 MG; Start 03/28/18 at 21:00 Budesonide (Pulmicort (Neb)) 0.5 mg BID RESP THERAPY HHN Last administered on 04/22/18 10:36; Admin Dose 0.5 MG; Start 03/28/18 at 20:00 Ferrous Gluconate (Fergon) 325 mg BID PO Last administered on 04/22/18 08:50; Admin Dose 325 MG; Start 03/28/18 at 21:00 Albuterol/ Ipratropium (Duoneb) 3 ml Q6HWA RESP THERAPY HHN Last administered on 04/22/18 08:37; Admin Dose 3 ML; Start 03/28/18 at 20:00 Montelukast Sodium (Singulair) 10 mg QHS PO Last administered on 04/21/18 21:14; Admin Dose 10 MG; Start 03/28/18 at 21:00 Pantoprazole (Protonix Tab) 40 mg DAILY@06 PO Last administered on 04/22/18 05:24; Admin Dose 40 MG; Start 03/29/18 at 06:00 Spironolactone (Aldactone) 25 mg DAILY PO Last administered on 04/22/18 08:49; Admin Dose 25 MG; Start 03/29/18 at 09:00 Tamsulosin HCl (Flomax) 0.4 mg HS PO Last administered on 04/21/18 21:17; Admin Dose 0.4 MG; Start 03/28/18 at 21:00 Tiotropium [place] (Spiriva) 1 inh DAILY INH Last administered on 04/22/18 09:00; Admin Dose 1 INH; Start 03/29/18 at 09:00 Albuterol (Proventil 0.083% (Neb)) 2.5 mg Q2H RESP THERAPY PRN HHN SHORTNESS OF BREATH Last administered on 04/06/18 19:39; Admin Dose 2.5 MG; Start 03/28/18 at 16:30 IV Flush (NS 3 ml) 3 ml PER PROTOCOL IV ; Start 03/28/18 at 16:30 Ondansetron HCl (Zofran Inj) 4 mg Q6H PRN IV NAUSEA AND/OR VOMITING; Start 03/28/18 at 16:30 Nitroglycerin (Nitroglycerin (Sl Tab) 0.4 Mg) 1 tab Q5M PRN SL CHEST PAIN; Start 03/28/18 at 16:30 Acetaminophen (Tylenol Tab) 650 mg Q6H PRN PO PAIN LEVEL 1-3 OR FEVER Last admi nistered on 04/13/18 21:11; Admin Dose 650 MG; Start 03/28/18 at 16:30 Docusate Sodium (Colace) 100 mg Q12H PRN PO CONSTIPATION Last administered on 04/06/18 22:50; Admin Dose 100 MG; Start 03/28/18 at 16:30 Magnesium Hydroxide (Milk Of Mag) 30 ml DAILY PRN PO CONSTIPATION Last administered on 04/06/18 22:50; Admin Dose 30 ML; Start 03/28/18 at 16:30 Enoxaparin Sodium (Lovenox) 40 mg DAILY SC Last administered on 04/22/18 08:57; Admin Dose 40 MG; Start 03/29/18 at 09:00 Sacubitril/ Valsartan (Entresto 24 Mg-26 Mg) 1 tab BID PO Last administered on 04/21/18 21:13; Admin Dose 1 TAB; Start 03/28/18 at 21:00 Nystatin (Nystatin Powder) 1 applic BID TOP Last administered on 04/22/18 08:49; Admin Dose 1 APPLIC; Start 03/28/18 at 21:00 Cholecalciferol (Vitamin D) 2,000 unit BID PO Last administered on 04/22/18 08:50; Admin Dose 2,000 UNIT; Start 03/28/18 at 21:00 Miscellaneous Information (Pending Santyl Order For Wound Care) This patient rivera... PRN PRN XX soiled; Start 03/28/18 at 19:00 Senna/Docusate Sodium (Senokot-S) 2 tab DAILY PO Last administered on 04/22/18 08:50; Admin Dose 2 TAB; Start 03/30/18 at 09:00 Multivitamins Therapeutic (Theragran) 1 tab DAILY PO Last administered on 04/22/18 08:51; Admin Dose 1 TAB; Start 03/30/18 at 09:00 Gabapentin (Neurontin) 200 mg TID PO Last administered on 04/22/18 12:47; Admin Dose 200 MG; Start 03/30/18 at 13:00 Digoxin (Digoxin) 0.125 mg DAILY@13 PO Last administered on 04/22/18 12:47; Admin Dose 0.125 MG; Start 04/02/18 at 13:00 Bisacodyl (Dulcolax) 5 mg DAILY PRN PO CONSTIPATION Last administered on 04/05 20:24; Admin Dose 5 MG; Start 04/02/18 at 18:30 Collagenase (Santyl) 1 applic DAILY TOP Last administered on 04/22/18 08:49; Admin Dose 1 APPLIC; Start 04/03/18 at 11:00 Vancomycin HCl (Vanco Iv Per Pharmacy) VANCOMYCIN PER PHARMACY PER PROTOCOL XX ; Start 04/04/18 at 17:30 Furosemide (Lasix) 40 mg DAILY PO Last administered on 04/22/18 08:50; Admin Dose 40 MG; Start 04/06/18 at 09:00 Mupirocin (Bactroban) 1 applic BID TOP Last administered on 04/22/18 08:49; Admin Dose 1 APPLIC; Start 04/06/18 at 21:00 Metoprolol Succinate (Toprol Xl) 50 mg BID PO Last administered on 04/21/18 21:14; Admin Dose 50 MG; Start 04/13/18 at 21:00 Oxycodone HCl (Roxicodone) 30 mg Q6H PRN PO PAIN LEVEL 6-10 Last administered on 04/21/18 12:33; Admin Dose 30 MG; Start 04/13/18 at 16:00 Vancomycin/Sodium Chloride 250 ml @ 125 mls/hr Q24H IVPB Last administered on 04/22/18 00:03; Admin Dose 125 MLS/HR; Start 04/17/18 at 23:00 Hydromorphone HCl (Dilaudid) 2 mg Q4H PRN IV SEVERE PAIN LEVEL 7-10 Last administered on 04/22/18 10:51; Admin Dose 2 MG; Start 04/21/18 at 16:00 PASTORA CUEVAS MD Apr 22, 2018 13:12
--- NOTE | 2018-04-22 13:29 | CONS ---
Date/Time of Note Date/Time of Note DATE: 04/22/18 TIME: 13:27 Assessment/Plan Assessment/Plan Result Diagram: 04/22/18 0449 04/22/189 Results 24hrs Laboratory Tests Test 04/22/18 04:49 White Blood Count 12.1 H Red Blood Count 4.42 L Hemoglobin 10.4 L Hematocrit 32.3 L Mean Corpuscular Volume 73.1 L Mean Corpuscular Hemoglobin 23.5 L Mean Corpuscular Hemoglobin Concent 32.2 Red Cell Distribution Width 21.1 H Platelet Count 420 H Mean Platelet Volume 10.7 H Immature Granulocytes % 0.700 H Neutrophils % 71.7 Lymphocytes % 14.9 L Monocytes % 11.6 H Eosinophils % 0.6 Basophils % 0.5 Nucleated Red Blood Cells % 0.0 Immature Granulocytes # 0.080 H Neutrophils # 8.7 H Lymphocytes # 1.8 Monocytes # 1.4 H Eosinophils # 0.1 Basophils # 0.1 Nucleated Red Blood Cells # 0.0 Sodium Level 134 L Potassium Level 4.4 Chloride Level 101 Carbon Dioxide Level 25 Anion Gap 8 Blood Urea Nitrogen 20 Creatinine 0.71 Est Glomerular Filtrat Rate mL/min > 60 Glucose Level 118 Calcium Level 9.4 Phosphorus Level 4.6 Magnesium Level 1.9 Consultation Date/Type/Reason Admit Date/Time Mar 29, 2018 at 07:48 Initial Consult Date SUBJECTIVE: Patient is awake, alert, afebrile. l VS: stable T: 98.6 LABS; WBC- 12.1 Microbiology: All cultures negative, MRSA swab positive Allergy: Tetracycline Antimicrobials: Vancomycin Physical examination: GEN: Well-nourished well-developed elderly -[place] man who is in no distress. HEAD: atraumatic normocephalic Neck: supple CHEST: rise symmetrical breath sounds diminished bases. HEART: S1-S2. ABDOMEN: soft bowel sounds present. EXTREM: patient has bilateral above-knee amputation. Rt stump with edema and fluctuance and mild erythema. Skin: Patient has multiple pressure sores Assessment: 1. Persistent leukocytosis of unknown etiology 2. Status post recurrent CHF 3. COPD 4. Substance abuse 5. Multiple wounds and pressure sores 6. History of methicillin-resistant Staphylococcus aureus infected graft, status post debridement back in 06/2017, per patient, the rest of the graft was removed at [facility], he completed IV vancomycin back in October 7. History of CABG and NM 8. Diabetes 9. MRSA nares colonization Plan: Patient is clinically stable. Continue Bactroban to nares and consider WBC labeled nuclear scan. Continue IV Vanco. Await for pro calcitonin level. MRI of Rt stump ordered. Requesting Provider: SUSAN FAULKNER MD Exam/Review of Systems Vital Signs Vitals Vital Signs Date Temp Pulse Resp B/P (MAP) Pulse Ox O2 O2 Flow FiO2 Time Delivery Rate 04/22/18 103 12:00 04/22/18 98.6 22 112/71 96 Room Air 11:31 (85) 04/22/18 21 10:38 Intake and Output 04/21/18 04/21/18 04/22/18 1515:00 23:00 07:00 IntakeIntake Total 500 ml 720 ml 600 ml OutputOutput Total 1000 ml 1800 ml 1200 ml BalanceBalance -500 ml -1080 ml -600 ml Medications Medications Current Medications Atorvastatin Calcium (Lipitor) 80 mg QHS PO Last administered on 04/21/18 21:13; Admin Dose 80 MG; Start 03/28/18 at 21:00 Budesonide (Pulmicort (Neb)) 0.5 mg BID RESP THERAPY HHN Last administered on 04/22/18 10:36; Admin Dose 0.5 MG; Start 03/28/18 at 20:00 Ferrous Gluconate (Fergon) 325 mg BID PO Last administered on 04/22/18 08:50; Admin Dose 325 MG; Start 03/28/18 at 21:00 Albuterol/ Ipratropium (Duoneb) 3 ml Q6HWA RESP THERAPY HHN Last administered on 04/22/18 08:37; Admin Dose 3 ML; Start 03/28/18 at 20:00 Montelukast Sodium (Singulair) 10 mg QHS PO Last administered on 04/21/18 21:14; Admin Dose 10 MG; Start 03/28/18 at 21:00 Pantoprazole (Protonix Tab) 40 mg DAILY@06 PO Last administered on 04/22/18 05:24; Admin Dose 40 MG; Start 03/29/18 at 06:00 Spironolactone (Aldactone) 25 mg DAILY PO Last administered on 04/22/18 08:49; Admin Dose 25 MG; Start 03/29/18 at 09:00 Tamsulosin HCl (Flomax) 0.4 mg HS PO Last administered on 04/21/18 21:17; Admin Dose 0.4 MG; Start 03/28/18 at 21:00 Tiotropium [place] (Spiriva) 1 inh DAILY INH Last administered on 04/22/18 09:00; Admin Dose 1 INH; Start 03/29/18 at 09:00 Albuterol (Proventil 0.083% (Neb)) 2.5 mg Q2H RESP THERAPY PRN HHN SHORTNESS OF BREATH Last administered on 04/06/18 19:39; Admin Dose 2.5 MG; Start 03/28/18 at 16:30 IV Flush (NS 3 ml) 3 ml PER PROTOCOL IV ; Start 03/28/18 at 16:30 Ondansetron HCl (Zofran Inj) 4 mg Q6H PRN IV NAUSEA AND/OR VOMITING; Start at 16:30 Nitroglycerin (Nitroglycerin (Sl Tab) 0.4 Mg) 1 tab Q5M PRN SL CHEST PAIN; Start 03/28/18 at 16:30 Acetaminophen (Tylenol Tab) 650 mg Q6H PRN PO PAIN LEVEL 1-3 OR FEVER Last administered on 04/13/18 21:11; Admin Dose 650 MG; Start 03/28/18 at 16:30 Docusate Sodium (Colace) 100 mg Q12H PRN PO CONSTIPATION Last administered on 04/06/18 22:50; Admin Dose 100 MG; Start 03/28/18 at 16:30 Magnesium Hydroxide (Milk Of Mag) 30 ml DAILY PRN PO CONSTIPATION Last administered on 04/06/18at 22:50; Admin Dose 30 ML; Start 03/28/18 at 16:30 Enoxaparin Sodium (Lovenox) 40 mg DAILY SC Last administered on 04/22/18 08:57; Admin Dose 40 MG; Start 03/29/18 at 09:00 Sacubitril/ Valsartan (Entresto 24 Mg-26 Mg) 1 tab BID PO Last administered on 04/21/18 21:13; Admin Dose 1 TAB; Start 03/28/18 at 21:00 Nystatin (Nystatin Powder) 1 applic BID TOP Last administered on 04/22/18 0 8:49; Admin Dose 1 APPLIC; Start 03/28/18 at 21:00 Cholecalciferol (Vitamin D) 2,000 unit BID PO Last administered on 04/22/18 08:50; Admin Dose 2,000 UNIT; Start 03/28/18 at 21:00 Miscellaneous Information (Pending Santyl Order For Wound Care) This patient rivera... PRN PRN XX soiled; Start 03/28/18 at 19:00 Senna/Docusate Sodium (Senokot-S) 2 tab DAILY PO Last administered on 04/22/18 08:50; Admin Dose 2 TAB; Start 03/30/18 at 09:00 Multivitamins Therapeutic (Theragran) 1 tab DAILY PO Last administered on 04/22/18 08:51; Admin Dose 1 TAB; Start 03/30/18 at 09:00 Gabapentin (Neurontin) 200 mg TID PO Last administered on 04/22/18 12:47; Admin Dose 200 MG; Start 03/30/18 at 13:00 Digoxin (Digoxin) 0.125 mg DAILY@13 PO Last administered on 04/22/18 12:47; Admin Dose 0.125 MG; Start 04/02/18 at 13:00 Bisacodyl (Dulcolax) 5 mg DAILY PRN PO CONSTIPATION Last administered on 04/05/18at 20:24; Admin Dose 5 MG; Start 04/02/18 at 18:30 Collagenase (Santyl) 1 applic DAILY TOP Last administered on 04/22/18 08:49; Admin Dose 1 APPLIC; Start 04/03/18 at 11:00 Vancomycin HCl (Vanco Iv Per Pharmacy) VANCOMYCIN PER PHARMACY PER PROTOCOL XX ; Start 04/04/18 at 17:30 Furosemide (Lasix) 40 mg DAILY PO Last administered on 04/22/18 08:50; Admin Dose 40 MG; Start 04/06/18 at 09:00 Mupirocin (Bactroban) 1 applic BID TOP Last administered on 04/22/18 08:49; Admin Dose 1 APPLIC; Start 04/06/18 at 21:00 Metoprolol Succinate (Toprol Xl) 50 mg BID PO Last administered on 04/21/18 21: 14; Admin Dose 50 MG; Start 04/13/18 at 21:00 Oxycodone HCl (Roxicodone) 30 mg Q6H PRN PO PAIN LEVEL 6-10 Last administered on 04/21/18 12:33; Admin Dose 30 MG; Start 04/13/18 at 16:00 Vancomycin/Sodium Chloride 250 ml @ 125 mls/hr Q24H IVPB Last administered on 04/22/18 00:03; Admin Dose 125 MLS/HR; Start 04/17/18 at 23:00 Hydromorphone HCl (Dilaudid) 2 mg Q4H PRN IV SEVERE PAIN LEVEL 7-10 Last administered on 04/22/18at 10:51; Admin Dose 2 MG; Start 04/21/18 at 16:00 SANTIAGO HENENSSY Apr 22, 2018 13:28
[2018-04-22] MEDS: ATORVASTATIN 80 MG TAB PO SCH (20:35)
[2018-04-22] MEDS: TAMSULOSIN (SR) 0.4 MG CAP PO SCH (20:35)
[2018-04-22] MEDS: MONTELUKAST 10 MG TAB PO SCH (20:36)
[2018-04-22] MEDS: oxyCODONE 15 MG TAB PO PRN (20:38)
[2018-04-22] MEDS: VANCOMYCIN 1 GM 250 ML IVPB SCH (23:34)
[2018-04-23] VITALS (11 sets, daily range): BP systolic 98–136; BP diastolic 59–71; PULSE 68–98; RESP 16–18
[2018-04-23] MEDS: HYDROmorphONE 2 MG/ML SYG IV PRN ×3 (03:32→20:06)
[2018-04-23] MEDS: PANTOPRAZOLE (EC) 40 MG TAB PO SCH (06:08)
[2018-04-23] MEDS: oxyCODONE 15 MG TAB PO PRN ×3 (07:13→23:24)
[2018-04-23] MEDS: BUDESONIDE (NEB) 0.5MG/2ML AMP HHN SCH ×2 (07:46→19:38)
[2018-04-23] MEDS: ALBUTEROL/IPRATROPIUM (NEB) 3 ML AMP HHN SCH ×3 (07:46→19:38)
[2018-04-23] MEDS: MULTIVITAMINS THERAPEUTIC TAB PO SCH (08:46)
[2018-04-23] MEDS: SACUBITRIL/VALSARTAN (24mg-26mg) TABLET PO SCH ×2 (08:46→20:50)
[2018-04-23] MEDS: FERROUS GLUCONATE (EC) 325 MG TAB PO SCH ×2 (08:46→20:50)
[2018-04-23] MEDS: GABAPENTIN 100 MG CAP PO SCH ×3 (08:47→20:50)
[2018-04-23] MEDS: METOPROLOL (XL) 50 MG TAB PO SCH ×2 (08:47→20:51)
[2018-04-23] MEDS: CHOLECALCIFEROL 2,000 UNIT CAP PO SCH ×2 (08:48→20:50)
[2018-04-23] MEDS: FUROSEMIDE 40 MG TAB PO SCH (08:48)
[2018-04-23] MEDS: COLLAGENASE 5 GM (UD JAR) TOP SCH (08:48)
[2018-04-23] MEDS: SPIRONOLACTONE 25 MG TAB PO SCH (08:48)
[2018-04-23] MEDS: SENNA/DOCUSATE NA (8.6MG/50MG) TAB PO SCH (08:49)
[2018-04-23] MEDS: NYSTATIN 30 GM POWDER BTL TOP SCH ×2 (08:49→20:51)
[2018-04-23] MEDS: MUPIROCIN 2% 22 GM OINT TOP SCH ×2 (08:50→20:51)
[2018-04-23] MEDS: ENOXAPARIN 40 MG/0.4 ML SYG SC SCH (08:54)
--- NOTE | 2018-04-23 09:08 | PN ---
Date/Time of Note Date/Time of Note DATE: 04/23/18 TIME: 09:08 Assessment/Plan VTE Prophylaxis Risk score (from Nsg)>0 risk: 8 SCD applied (from Nsg): No SCD contraindicated: bilateral amputee Pharmacological prophylaxis: apixaban Lines/Catheters IV Catheter Type (from Nrsg): Peripheral IV Urinary Cath still in place: No Assessment/Plan Assessment/Plan 1. Acute infection in right thigh s/p amputation at [facility] - Discussed plan of care with patient and still refusing transfer to tertiary center or further amputation given quality of life. Would like to try IV antibiotics and lifelong antibiotics. Discussed importance of obtaining an appointment with Vasc Surgery at [facility] prior to discharge to avoid getting lost to follow up with infection in leg - IR drainage appreciated and culture results noted - After discussion with multiple specialists, best for patient to return to original vascular surgeon who performed right amputation if he is refusing tertiary center for extensive debridement and possible further amputation of bone. - ID on board and recommending Vancomycin IV for 8 weeks followed by Doxycycline lifelong - Pain management on board and appreciate consultation. Requested referral to outpatient pain management office for continued care - LE US negative for DVT. 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 Discussed with vascular, Dr. Rodríguez, who said it was chronic and will need to follow up with outpatient clinic at [facility] since RLE amputation was performed there. - Dr. 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 Spoke with orthopedic surgeon who states that due to the severity of patient's vascular issues impeding healing, as well as possible extent of debridement and possibility of hindquarter amputation, he is recommending transfer to a tertiary care center where they could accommodate such complicated issues. Patient however currently is refusing transfer for possible further workup including debridement and possible amputation. Patient states that he does not want any further workup done on his leg and states that he will try just antibiotics as he does not want any debridement surgery or amputation on his leg. The importance of further workup including consequences including and debility were explained to patient and patient states that he chooses to just do antibiotics will follow up with the vascular surgeon in the outpatient setting. The patient is alert and oriented x4 - MRI was unclear due to movement 2/2 patient having pain when on MRI machine - xray femur can not rule out osteo 2. Acute on chronic systolic heart failure- resolved - Cardiology consultation appreciated. Continue on current diuretics and stressed importance of continuing after discharge - Echo results noted from prior admission with EF 20% 3. Wounds on elbows and sacrum - wound consultation appreciated 4. CAD - continue all home medications - stable 5. b/l AKA secondary to PVD - Left performed by Dr. Rodríguez - Right performed at [facility] 6. Episodes of sustained vtach-stable - monitor - Cardiology on board and continues to adjust medications as needed 7. Disposition - After discussion with patient regarding transfer to tertiary care for continued treatment of abscess/?osteo of right stump. patient would like to pu rsue antibiotics and outpatient follow up. - PICC line ordered and on board for assistance with arranging Vasc Surgery follow up and IV antibiotics with for IV administration and PICC line care Result Diagram: 04/23/18 0459 04/23/18 0459 Results 24hrs Laboratory Tests Test 04/23/18 04:59 White Blood Count 12.2 H Red Blood Count 4.40 L Hemoglobin 10.5 L Hematocrit 32.8 L Mean Corpuscular Volume 74.5 L Mean Corpuscular Hemoglobin 23.9 L Mean Corpuscular Hemoglobin Concent 32.0 Red Cell Distribution Width 21.2 H Platelet Count 408 Mean Platelet Volume 11.2 H Immature Granulocytes % 0.500 H Neutrophils % 71.0 Lymphocytes % 16.2 Monocytes % 11.1 H Eosinophils % 0.7 Basophils % 0.5 Nucleated Red Blood Cells % 0.0 Immature Granulocytes # 0.060 H Neutrophils # 8.6 H Lymphocytes # 2.0 Monocytes # 1.4 H Eosinophils # 0.1 Basophils # 0.1 Nucleated Red Blood Cells # 0.0 Sodium Level 138 Potassium Level 4.6 Chloride Level 99 Carbon Dioxide Level 26 Anion Gap 13 Blood Urea Nitrogen 21 H Creatinine 0.88 Est Glomerular Filtrat Rate mL/min > 60 Glucose Level 138 Calcium Level 9.2 Phosphorus Level 4.6 Magnesium Level 1.9 Subjective 24 Hr Interval Summary Free Text/Dictation Patient doing well and denies any new issues. Discussed plan of care and still refusing further surgical intervention or transfer to higher level of care. PICC line placement today and agreeable to d/c on IV antibiotics and followup with vasc as outpt. Exam/Review of Systems Vital Signs Vitals Vital Signs Date Temp Pulse Resp B/P (MAP) Pulse Ox O2 O2 Flow FiO2 Time Delivery Rate 04/23/18 94 08:59 04/23/18 98.3 16 98/59 (72) 99 Room Air 07:57 04/23/18 21 07:50 Intake and Output 04/22/18 04/22/18 04/23/18 1515:00 23:00 07:00 IntakeIntake Total 780 ml 1300 ml OutputOutput Total 1600 ml 1600 ml BalanceBalance -820 ml -300 ml Exam General: Patient is laying in bed and answers questions appropriately Mentation: Patient is alert and oriented 4, Neck: Supple, nontender, midline Respiratory: Clear to auscultation bilaterally. no wheezing or rhonchi Cardiovascular: regular rate, no obvious murmurs Gastrointestinal: soft, non-tender to palpation, nondistended, bowel sounds heard. Musculoskeletal: Bilateral AKA, dressing on right stump. moving without any issues. Medications Medications Current Medications Atorvastatin Calcium (Lipitor) 80 mg QHS PO Last administered on 04/22/18 20:35; Admin Dose 80 MG; Start 03/28/18 at 21:00 Budesonide (Pulmicort (Neb)) 0.5 mg BID RESP THERAPY HHN Last administered on 04/23/18 07:46; Admin Dose 0.5 MG; Start 03/28/18 at 20:00 Ferrous Gluconate (Fergon) 325 mg BID PO Last administered on 04/23/18 08:46; Admin Dose 325 MG; Start 03/28/18 at 21:00 Albuterol/ Ipratropium (Duoneb) 3 ml Q6HWA RESP THERAPY HHN Last administered on 04/23/18 07:46; Admin Dose 3 ML; Start 03/28/18 at 20:00 Montelukast Sodium (Singulair) 10 mg QHS PO Last administered on 04/22/18 20:36; Admin Dose 10 MG; Start 03/28/18 at 21:00 Pantoprazole (Protonix Tab) 40 mg DAILY@06 PO Last administered on 04/23/18 06:08; Admin Dose 40 MG; Start 03/29/18 at 06:00 Spironolactone (Aldactone) 25 mg DAILY PO Last administered on 04/23/18 08:48; Admin Dose 25 MG; Start 03/29/18 at 09:00 Tamsulosin HCl (Flomax) 0.4 mg HS PO Last administered on 04/22/18 20:35; Admin Dose 0.4 MG; Start 03/28/18 at 21:00 Tiotropium [place] (Spiriva) 1 inh DAILY INH Last administered on 04/22/18 09:00; Admin Dose 1 INH; Start 03/29/18 at 09:00 Albuterol (Proventil 0.083% (Neb)) 2.5 mg Q2H RESP THERAPY PRN HHN SHORTNESS OF BREATH Last administered on 04/06/18 19:39; Admin Dose 2.5 MG; Start 03/28/18 at 16:30 IV Flush (NS 3 ml) 3 ml PER PROTOCOL IV ; Start 03/28/18 at 16:30 Ondansetron HCl (Zofran Inj) 4 mg Q6H PRN IV NAUSEA AND/OR VOMITING; Start 03/28/18 at 16:30 Nitroglycerin (Nitroglycerin (Sl Tab) 0.4 Mg) 1 tab Q5M PRN SL CHEST PAIN; Start 03/28/18 at 16:30 Acetaminophen (Tylenol Tab) 650 mg Q6H PRN PO PAIN LEVEL 1-3 OR FEVER Last administered on 04/13/18at 21:11; Admin Dose 650 MG; Start 03/28/18 at 16:30 Docusate Sodium (Colace) 100 mg Q12H PRN PO CONSTIPATION Last administered on 04/06/18 22:50; Admin Dose 100 MG; Start 03/28/18 at 16:30 Magnesium Hydroxide (Milk Of Mag) 30 ml DAILY PRN PO CONSTIPATION Last administered on 04/06/18at 22:50; Admin Dose 30 ML; Start 03/28/18 at 16:30 Enoxaparin Sodium (Lovenox) 40 mg DAILY SC Last administered on 04/23/18 08:54; Admin Dose 40 MG; Start 03/29/18 at 09:00 Sacubitril/ Valsartan (Entresto 24 Mg-26 Mg) 1 tab BID PO Last administered on 04/23/18 08:46; Admin Dose 1 TAB; Start 03/28/18 at 21:00 Nystatin (Nystatin Powder) 1 applic BID TOP Last administered on 04/23/18 08:49; Admin Dose 1 APPLIC; Start 03/28/18 at 21:00 Cholecalciferol (Vitamin D) 2,000 unit BID PO Last administered on 04/23/18 08:48; Admin Dose 2,000 UNIT; Start 03/28/18 at 21:00 Miscellaneous Information (Pending Santyl Order For Wound Care) This patient rivera... PRN PRN XX soiled; Start 03/28/18 at 19:00 Senna/Docusate Sodium (Senokot-S) 2 tab DAILY PO Last administered on 04/23/18 08:49; Admin Dose 1 TAB; Start 03/30/18 at 09:00 Multivitamins Therapeutic (Theragran) 1 tab DAILY PO Last administered on 04/23/18 08:46; Admin Dose 1 TAB; Start 03/30/18 at 09:00 Gabapentin (Neurontin) 200 mg TID PO Last administered on 04/23/18 08:47; Admin Dose 200 MG; Start 03/30/18 at 13:00 Digoxin (Digoxin) 0.125 mg DAILY@13 PO Last administered on 04/22/18 12:47; Admin Dose 0.125 MG; Start 04/02/18 at 13:00 Bisacodyl (Dulcolax) 5 mg DAILY PRN PO CONSTIPATION Last administered on 04/05/18at 20:24; Admin Dose 5 MG; Start 04/02/18 at 18:30 Collagenase (Santyl) 1 applic DAILY TOP Last administered on 04/23/18 08:48; Admin Dose 1 APPLIC; Start 04/03/18 at 11:00 Vancomycin HCl (Vanco Iv Per Pharmacy) VANCOMYCIN PER PHARMACY PER PROTOCOL XX ; Start 04/04/18 at 17:30 Furosemide (Lasix) 40 mg DAILY PO Last administered on 04/23/18 08:48; Admin Dose 40 MG; Start 04/06/18 at 09:00 Mupirocin (Bactroban) 1 applic BID TOP Last administered on 04/23/18 08:50; Admin Dose 1 APPLIC; Start 04/06/18 at 21:00 Metoprolol Succinate (Toprol Xl) 50 mg BID PO Last administered on 04/23/18 08:47; Admin Dose 50 MG; Start 04/13/18 at 21:00 Oxycodone HCl (Roxicodone) 30 mg Q6H PRN PO PAIN LEVEL 6-10 Last administered on 04/23/18 07:13; Admin Dose 30 MG; Start 04/13/18 at 16:00 Hydromorphone HCl (Dilaudid) 2 mg Q4H PRN IV SEVERE PAIN LEVEL 7-10 Last administered on 04/23/18 03:32; Admin Dose 2 MG; Start 04/21/18 at 16:00 Vancomycin HCl 250 ml @ 125 mls/hr Q24H IVPB Last administered on 04/22/18 23:34; Admin Dose 125 MLS/HR; Start 04/22/18 at 23:00 SUSAN FAULKNER MD Apr 23, 2018 09:08
[2018-04-23] MEDS: TIOTROPIUM 18 MCG CAPSULE INHA DEV INH SCH (10:49)
--- NOTE | 2018-04-23 11:52 | CONS ---
Date/Time of Note Date/Time of Note DATE: 04/23/18 TIME: 11:49 Assessment/Plan Assessment/Plan Hospital Course IMPRESSION: 1. Congestive heart failure exacerbation, systolic, acute on chronic. 2. Cardiomyopathy with severely depressed left ventricular ejection fraction with last being approximately 20%. 3. Hypertension. 4. Dyslipidemia. 5. History of substance abuse. 6. Chronic obstructive pulmonary disease. 7. Bilateral lower extremity amputation and presenting with right stump pain.- s/p IR guidede drainage of collection seen by LE CT 8. Questionable history of intracardiac thrombus not seen by most recent echocardiogram dated 01/06/2018, but with severely depressed ejection fraction at that time of 20%. 9. Tobacco intake. 10. SVT-regular recurrent to 160-180. Broke with PO BB. Also questionable WCT right before. Had recurrent SVT o/n 04/01.Slowly improving S tach 11. Fluid collection at stump site by CTA Recc: -Tele -Continue entresto/BB as tolerated -Continue aldactone -Continue lasix daily -Continue bronchodilators/abx's and f/u cx data -Continue po digoxin -pain control -ongoing surgical eval of limb pain/fluid collection Result Diagram: 04/23/18 0459 04/23/18 0459 Results 24hrs Laboratory Tests Test 04/23/18 04:59 White Blood Count 12.2 H Red Blood Count 4.40 L Hemoglobin 10.5 L Hematocrit 32.8 L Mean Corpuscular Volume 74.5 L Mean Corpuscular Hemoglobin 23.9 L Mean Corpuscular Hemoglobin Concent 32.0 Red Cell Distribution Width 21.2 H Platelet Count 408 Mean Platelet Volume 11.2 H Immature Granulocytes % 0.500 H Neutrophils % 71.0 Lymphocytes % 16.2 Monocytes % 11.1 H Eosinophils % 0.7 Basophils % 0.5 Nucleated Red Blood Cells % 0.0 Immature Granulocytes # 0.060 H Neutrophils # 8.6 H Lymphocytes # 2.0 Monocytes # 1.4 H Eosinophils # 0.1 Basophils # 0.1 Nucleated Red Blood Cells # 0.0 Sodium Level 138 Potassium Level 4.6 Chloride Level 99 Carbon Dioxide Level 26 Anion Gap 13 Blood Urea Nitrogen 21 H Creatinine 0.88 Est Glomerular Filtrat Rate mL/min > 60 Glucose Level 138 Calcium Level 9.2 Phosphorus Level 4.6 Magnesium Level 1.9 Consultation Date/Type/Reason Admit Date/Time Mar 29, 2018 at 07:48 Initial Consult Date 03/29/18 Type of Consult cardiology Reason for Consultation CHF Requesting Provider: SUSAN FAULKNER MD Exam/Review of Systems Vital Signs Vitals Vital Signs Date Temp Pulse Resp B/P (MAP) Pulse Ox O2 O2 Flow FiO2 Time Delivery Rate 04/23/18 98.4 68 17 112/65 98 Room Air 11:16 (81) 04/23/18 21 07:50 Intake and Output 04/22/18 04/22/18 04/23/18 1515:00 23:00 07:00 IntakeIntake Total 780 ml 1300 ml OutputOutput Total 1600 ml 1600 ml BalanceBalance -820 ml -300 ml Exam Review of Systems: CONSTITUTIONAL: No fevers, chills. PULMONARY: No sob CARDIOVASCULAR: No chest pain/palpitations GASTROINTESTINAL: No nausea/vomiting. GENITOURINARY: No hematuria/dysuria. MUSCULOSKELETAL: No myagias/arthalgias. PSYCHIATRIC: The patient denies depression. NEUROLOGIC: No weakness Constitutional: alert Psych: no complaints Head: normocephalic ENMT: mucosa pink and moist Neck: supple, jvd (9 cm water) Respiratory: diminished breath sounds Cardiovascular: regular rate and rhythm Gastrointestinal: soft, non-tender Musculoskeletal: muscle weakness (generalized) Extremities: edema (none) Neurological: other (No focal deficits) Medications Medications Current Medications Atorvastatin Calcium (Lipitor) 80 mg QHS PO Last administered on 04/22/18 20:35; Admin Dose 80 MG; Start 03/28/18 at 21:00 Budesonide (Pulmicort (Neb)) 0.5 mg BID RESP THERAPY HHN Last administered on 04/23/18 07:46; Admin Dose 0.5 MG; Start 03/28/18 at 20:00 Ferrous Gluconate (Fergon) 325 mg BID PO Last administered on 04/23/18 08:46; Admin Dose 325 MG; Start 03/28/18 at 21:00 Albuterol/ Ipratropium (Duoneb) 3 ml Q6HWA RESP THERAPY HHN Last administered on 04/23/18 07:46; Admin Dose 3 ML; Start 03/28/18 at 20:00 Montelukast Sodium (Singulair) 10 mg QHS PO Last administered on 04/22/18 20:36; Admin Dose 10 MG; Start 03/28/18 at 21:00 Pantoprazole (Protonix Tab) 40 mg DAILY@06 PO Last administered on 04/23/18 06:08; Admin Dose 40 MG; Start 03/29/18 at 06:00 Spironolactone (Aldactone) 25 mg DAILY PO Last administered on 04/23/18 08:48; Admin Dose 25 MG; Start 03/29/18 at 09:00 Tamsulosin HCl (Flomax) 0.4 mg HS PO Last administered on 04/22/18 20:35; Admin Dose 0.4 MG; Start 03/28/18 at 21:00 Tiotropium [place] (Spiriva) 1 inh DAILY INH Last administered on 04/23/18 10:49; Admin Dose 1 INH; Start 03/29/18 at 09:00 Albuterol (Proventil 0.083% (Neb)) 2.5 mg Q2H RESP THERAPY PRN HHN SHORTNESS OF BREATH Last administered on 04/06/18at 19:39; Admin Dose 2.5 MG; Start 03/28/18 at 16:30 IV Flush (NS 3 ml) 3 ml PER PROTOCOL IV ; Start 03/28/18 at 16:30 Ondansetron HCl (Zofran Inj) 4 mg Q6H PRN IV NAUSEA AND/OR VOMITING; Start 03/28/18 at 16:30 Nitroglycerin (Nitroglycerin (Sl Tab) 0.4 Mg) 1 tab Q5M PRN SL CHEST PAIN; Start 03/28/18 at 16:30 Acetaminophen (Tylenol Tab) 650 mg Q6H PRN PO PAIN LEVEL 1-3 OR FEVER Last administered on 04/13/18at 21:11; Admin Dose 650 MG; Start 03/28/18 at 16:30 Docusate Sodium (Colace) 100 mg Q12H PRN PO CONSTIPATION Last administered on 04/06/18 22:50; Admin Dose 100 MG; Start 03/28/18 at 16:30 Magnesium Hydroxide (Milk Of Mag) 30 ml DAILY PRN PO CONSTIPATION Last administered on 04/06/18at 22:50; Admin Dose 30 ML; Start 03/28/18 at 16:30 Enoxaparin Sodium (Lovenox) 40 mg DAILY SC Last administered on 04/23/18 08:54; Admin Dose 40 MG; Start 03/29/18 at 09:00 Sacubitril/ Valsartan (Entresto 24 Mg-26 Mg) 1 tab BID PO Last administered on 04/23/18 08:46; Admin Dose 1 TAB; Start 03/28/18 at 21:00 Nystatin (Nystatin Powder) 1 applic BID TOP Last administered on 04/23/18 08:49; Admin Dose 1 APPLIC; Start 03/28/18 at 21:00 Cholecalciferol (Vitamin D) 2,000 unit BID PO Last administered on 04/23/18 08:48; Admin Dose 2,000 UNIT; Start 03/28/18 at 21:00 Miscellaneous Information (Pending Santyl Order For Wound Care) This patient rivera... PRN PRN XX soiled; Start 03/28/18 at 19:00 Senna/Docusate Sodium (Senokot-S) 2 tab DAILY PO Last administered on 04/23/18 08:49; Admin Dose 1 TAB; Start 03/30/18 at 09:00 Multivitamins Therapeutic (Theragran) 1 tab DAILY PO Last administered on 04/23/18 08:46; Admin Dose 1 TAB; Start 03/30/18 at 09:00 Gabapentin (Neurontin) 200 mg TID PO Last administered on 04/23/18 08:47; Admin Dose 200 MG; Start 03/30/18 at 13:00 Digoxin (Digoxin) 0.125 mg DAILY@13 PO Last administered on 04/22/18 12:47; Admin Dose 0.125 MG; Start 04/02/18 at 13:00 Bisacodyl (Dulcolax) 5 mg DAILY PRN PO CONSTIPATION Last administered on at 20:24; Admin Dose 5 MG; Start 04/02/18 at 18:30 Collagenase (Santyl) 1 applic DAILY TOP Last administered on 04/23/18 08:48; Admin Dose 1 APPLIC; Start 04/03/18 at 11:00 Vancomycin HCl (Vanco Iv Per Pharmacy) VANCOMYCIN PER PHARMACY PER PROTOCOL XX ; Start 04/04/18 at 17:30 Furosemide (Lasix) 40 mg DAILY PO Last administered on 04/23/18 08:48; Admin Dose 40 MG; Start 04/06/18 at 09:00 Mupirocin (Bactroban) 1 applic BID TOP Last administered on 04/23/18 08:50; Admin Dose 1 APPLIC; Start 04/06/18 at 21:00 Metoprolol Succinate (Toprol Xl) 50 mg BID PO Last administered on 04/23/18 0 8:47; Admin Dose 50 MG; Start 04/13/18 at 21:00 Oxycodone HCl (Roxicodone) 30 mg Q6H PRN PO PAIN LEVEL 6-10 Last administered on 04/23/18 07:13; Admin Dose 30 MG; Start 04/13/18 at 16:00 Hydromorphone HCl (Dilaudid) 2 mg Q4H PRN IV SEVERE PAIN LEVEL 7-10 Last administered on 04/23/18 03:32; Admin Dose 2 MG; Start 04/21/18 at 16:00 Vancomycin HCl 250 ml @ 125 mls/hr Q24H IVPB Last administered on 04/22/18 23:34; Admin Dose 125 MLS/HR; Start 04/22/18 at 23:00 VIVIAN PRINCE Apr 23, 2018 11:52
[2018-04-23] MEDS: DIGOXIN 0.125 MG TAB PO SCH (12:23)
--- NOTE | 2018-04-23 14:35 | CONS ---
Date/Time of Note Date/Time of Note DATE: 04/23/18 TIME: 14:35 Assessment/Plan Assessment/Plan Hospital Course Sleeping, looks comfortable no fevers. Microbiology: Aspirated fluid culture from right lower extremity growing MRSA X-ray of right lower extremity revealed possible osteomyelitis of the distal fe mur. Antimicrobials: Vancomycin Allergy: Tetracycline Physical examination: Well-nourished well-developed elderly -[place] man who is in no distress. Head atraumatic normocephalic neck is supple chest rise symmetrical breath sounds diminished bases. Heart: S1-S2. Abdomen soft bowel sounds present. Extremities without cyanosis patient has bilateral above-knee amputation, right stump painful to touch Assessment: 1. Leukocytosis secondary to right lower extremity stump MRSA abscess that was drained and probable osteomyelitis 2. Status post recurrent CHF/COPD exacerbation 3. Severe PAD 4. Substance abuse 5. Multiple wounds and pressure sores 6. History of methicillin-resistant Staphylococcus aureus infected graft, sta tus post debridement back in 06/2017, per patient, the rest of the graft was removed at [facility], he completed IV vancomycin back in January 7. History of CABG and SD 8. Diabetes 9. MRSA nares colonization 10. Medical noncompliance with chronic tobacco use Plan: Clinically unchanged, continue IV vancomycin and consider PICC line placement for long-term IV antibiotics. Pt refusing another surgical intervention/higher level of amputation. Needs to be on abx life long, PO Doxycycline after 8 wks IV Vanco [facility] staff Result Diagram: 04/23/18 0459 04/23/18 0459 Results 24hrs Laboratory Tests Test 04/23/18 04:59 White Blood Count 12.2 H Red Blood Count 4.40 L Hemoglobin 10.5 L Hematocrit 32.8 L Mean Corpuscular Volume 74.5 L Mean Corpuscular Hemoglobin 23.9 L Mean Corpuscular Hemoglobin Concent 32.0 Red Cell Distribution Width 21.2 H Platelet Count 408 Mean Platelet Volume 11.2 H Immature Granulocytes % 0.500 H Neutrophils % 71.0 Lymphocytes % 16.2 Monocytes % 11.1 H Eosinophils % 0.7 Basophils % 0.5 Nucleated Red Blood Cells % 0.0 Immature Granulocytes # 0.060 H Neutrophils # 8.6 H Lymphocytes # 2.0 Monocytes # 1.4 H Eosinophils # 0.1 Basophils # 0.1 Nucleated Red Blood Cells # 0.0 Sodium Level 138 Potassium Level 4.6 Chloride Level 99 Carbon Dioxide Level 26 Anion Gap 13 Blood Urea Nitrogen 21 H Creatinine 0.88 Est Glomerular Filtrat Rate mL/min > 60 Glucose Level 138 Calcium Level 9.2 Phosphorus Level 4.6 Magnesium Level 1.9 Consultation Date/Type/Reason Admit Date/Time Mar 29, 2018 at 07:48 Initial Consult Date Type of Consult ID Requesting Provider: SUSAN FAULKNER MD Exam/Review of Systems Vital Signs Vitals Vital Signs Date Temp Pulse Resp B/P (MAP) Pulse Ox O2 O2 Flow FiO2 Time Delivery Rate 04/23/18 80 12:36 04/23/18 98.4 17 112/65 98 Room Air 11:16 (81) 04/23/18 21 07:50 Intake and Output 04/22/18 04/22/18 04/23/18 1515:00 23:00 07:00 IntakeIntake Total 780 ml 1300 ml OutputOutput Total 1600 ml 1600 ml BalanceBalance -820 ml -300 ml Medications Medications Current Medications Atorvastatin Calcium (Lipitor) 80 mg QHS PO Last administered on 04/22/18 20:35; Admin Dose 80 MG; Start 03/28/18 at 21:00 Budesonide (Pulmicort (Neb)) 0.5 mg BID RESP THERAPY HHN Last administered on 04/23/18 07:46; Admin Dose 0.5 MG; Start 03/28/18 at 20:00 Ferrous Gluconate (Fergon) 325 mg BID PO Last administered on 04/23/18 08:46; Admin Dose 325 MG; Start 03/28/18 at 21:00 Albuterol/ Ipratropium (Duoneb) 3 ml Q6HWA RESP THERAPY HHN Last administered on 04/23/18 07:46; Admin Dose 3 ML; Start 03/28/18 at 20:00 Montelukast Sodium (Singulair) 10 mg QHS PO Last administered on 04/22/18 20:36; Admin Dose 10 MG; Start 03/28/18 at 21:00 Pantoprazole (Protonix Tab) 40 mg DAILY@06 PO Last administered on 04/23/18 06:08; Admin Dose 40 MG; Start 03/29/18 at 06:00 Spironolactone (Aldactone) 25 mg DAILY PO Last administered on 04/23/18 08:48; Admin Dose 25 MG; Start 03/29/18 at 09:00 Tamsulosin HCl (Flomax) 0.4 mg HS PO Last administered on 04/22/18 20:35; Admin Dose 0.4 MG; Start 03/28/18 at 21:00 Tiotropium [place] (Spiriva) 1 inh DAILY INH Last administered on 04/23/18 10:49; Admin Dose 1 INH; Start 03/29/18 at 09:00 Albuterol (Proventil 0.083% (Neb)) 2.5 mg Q2H RESP THERAPY PRN HHN SHORTNESS OF BREATH Last administered on 04/06/18 19:39; Admin Dose 2.5 MG; Start 03/28/18 at 16:30 IV Flush (NS 3 ml) 3 ml PER PROTOCOL IV ; Start 03/28/18 at 16:30 Ondansetron HCl (Zofran Inj) 4 mg Q6H PRN IV NAUSEA AND/OR VOMITING; Start 03/28/18 at 16:30 Nitroglycerin (Nitroglycerin (Sl Tab) 0.4 Mg) 1 tab Q5M PRN SL CHEST PAIN; Start 03/28/18 at 16:30 Acetaminophen (Tylenol Tab) 650 mg Q6H PRN PO PAIN LEVEL 1-3 OR FEVER Last administered on 04/13/18 21:11; Admin Dose 650 MG; Start 03/28/18 at 16:30 Docusate Sodium (Colace) 100 mg Q12H PRN PO CONSTIPATION Last administered on 04/06/18 22:50; Admin Dose 100 MG; Start 03/28/18 at 16:30 Magnesium Hydroxide (Milk Of Mag) 30 ml DAILY PRN PO CONSTIPATION Last administered on 04/06/18 22:50; Admin Dose 30 ML; Start 03/28/18 at 16:30 Enoxaparin Sodium (Lovenox) 40 mg DAILY SC Last administered on 04/23/18 08:54; Admin Dose 40 MG; Start 03/29/18 at 09:00 Sacubitril/ Valsartan (Entresto 24 Mg-26 Mg) 1 tab BID PO Last administered on 04/23/18 08:46; Admin Dose 1 TAB; Start 03/28/18 at 21:00 Nystatin (Nystatin Powder) 1 applic BID TOP Last administered on 04/23/18 08:49; Admin Dose 1 APPLIC; Start 03/28/18 at 21:00 Cholecalciferol (Vitamin D) 2,000 unit BID PO Last administered on 04/23/18 08:48; Admin Dose 2,000 UNIT; Start 03/28/18 at 21:00 Miscellaneous Information (Pending Santyl Order For Wound Care) This patient rivera... PRN PRN XX soiled; Start 03/28/18 at 19:00 Senna/Docusate Sodium (Senokot-S) 2 tab DAILY PO Last administered on 04/23/18 08:49; Admin Dose 1 TAB; Start 03/30/18 at 09:00 Multivitamins Therapeutic (Theragran) 1 tab DAILY PO Last administered on 04/23/18 08:46; Admin Dose 1 TAB; Start 03/30/18 at 09:00 Gabapentin (Neurontin) 200 mg TID PO Last administered on 04/23/18 12:23; Admin Dose 200 MG; Start 03/30/18 at 13:00 Digoxin (Digoxin) 0.125 mg DAILY@13 PO Last administered on 04/23/18 12:23; Admin Dose 0.125 MG; Start 04/02/18 at 13:00 Bisacodyl (Dulcolax) 5 mg DAILY PRN PO CONSTIPATION Last administered on 04/05/18at 20:24; Admin Dose 5 MG; Start 04/02/18 at 18:30 Collagenase (Santyl) 1 applic DAILY TOP Last administered on 04/23/18 08:48; Admin Dose 1 APPLIC; Start 04/03/18 at 11:00 Vancomycin HCl (Vanco Iv Per Pharmacy) VANCOMYCIN PER PHARMACY PER PROTOCOL XX ; Start 04/04/18 at 17:30 Furosemide (Lasix) 40 mg DAILY PO Last administered on 04/23/18 08:48; Admin Dose 40 MG; Start 04/06/18 at 09:00 Mupirocin (Bactroban) 1 applic BID TOP Last administered on 04/23/18 08:50; Admin Dose 1 APPLIC; Start 04/06/18 at 21:00 Metoprolol Succinate (Toprol Xl) 50 mg BID PO Last administered on 04/23/18 08:47; Admin Dose 50 MG; Start 04/13/18 at 21:00 Oxycodone HCl (Roxicodone) 30 mg Q6H PRN PO PAIN LEVEL 6-10 Last administered on 04/23/18 07:13; Admin Dose 30 MG; Start 04/13/18 at 16:00 Hydromorphone HCl (Dilaudid) 2 mg Q4H PRN IV SEVERE PAIN LEVEL 7-10 Last administered on 04/23/18 12:27; Admin Dose 2 MG; Start 04/21/18 at 16:00 Vancomycin HCl 250 ml @ 125 mls/hr Q24H IVPB Last administered on 04/22/18at 23:34; Admin Dose 125 MLS/HR; Start 04/22/18 at 23:00 NAYELI MADERA NP Apr 23, 2018 14:35
[2018-04-23] MEDS: ATORVASTATIN 80 MG TAB PO SCH (20:50)
[2018-04-23] MEDS: MONTELUKAST 10 MG TAB PO SCH (20:50)
[2018-04-23] MEDS: TAMSULOSIN (SR) 0.4 MG CAP PO SCH (20:51)
[2018-04-23] MEDS: VANCOMYCIN 1 GM 250 ML IVPB SCH (23:13)
[2018-04-24] VITALS (9 sets, daily range): BP systolic 99–124; BP diastolic 58–68; PULSE 76–98; RESP 18–20
[2018-04-24] MEDS: PANTOPRAZOLE (EC) 40 MG TAB PO SCH (05:50)
[2018-04-24] MEDS: HYDROmorphONE 2 MG/ML SYG IV PRN ×4 (05:51→22:06)
[2018-04-24] MEDS: ALBUTEROL/IPRATROPIUM (NEB) 3 ML AMP HHN SCH ×3 (07:17→20:17)
[2018-04-24] MEDS: BUDESONIDE (NEB) 0.5MG/2ML AMP HHN SCH ×2 (07:17→20:17)
[2018-04-24] MEDS: SACUBITRIL/VALSARTAN (24mg-26mg) TABLET PO SCH ×2 (07:53→20:43)
[2018-04-24] MEDS: METOPROLOL (XL) 50 MG TAB PO SCH ×2 (07:54→20:43)
--- NOTE | 2018-04-24 08:27 | PN ---
Date/Time of Note Date/Time of Note DATE: 04/24/18 TIME: 08:27 Assessment/Plan VTE Prophylaxis Risk score (from Nsg)>0 risk: 7 SCD applied (from Nsg): No SCD contraindicated: bilateral amputee Pharmacological prophylaxis: apixaban Lines/Catheters IV Catheter Type (from Nrsg): PICC Line Central line still needed: Yes Urinary Cath still in place: No Assessment/Plan Assessment/Plan 1. Acute infection in right thigh s/p amputation at [facility]- improving - Patients WBC stabilized and neutrophil count trending downward. Discussed need to continue on Vancomycin for 8 weeks total then continue on Doxycycline lifelong - Discussed plan of care with patient and still refusing transfer to tertiary center or further amputation given quality of life. Will continue on antibiotics. Discussed importance of obtaining a follow up appointment with Vasc Surgery at [facility] - IR drainage appreciated and culture results noted - After discussion with multiple specialists, best for patient to return to original vascular surgeon who performed right amputation if he is refusing tertiary center for extensive debridement and possible further amputation of bone. - ID on board and appreciate recommendations - Pain management on board and appreciate consultation. Recommending Dr. Satinder Fortune, painter foreman for patient to follow after discharged - LE US negative for DVT. 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 Discussed with vascular, Dr. Rodríguez, who said it was chronic and will need to follow up with outpatient clinic at [facility] since RLE amputation was performed there. - Dr. Sloan, CT surgery asked to eval patient's need for acute inpatient intervention at tertiary care center vs outpatient follow up, states can follow up outpatient - General surgery on board states that the wound infection on the right stump is MRSA and will continue to necrotized patient's muscle and patient will likely need an extensive debridement which will likely leave exposed bone. Spoke with orthopedic surgeon who states that due to the severity of patient's vascular issues impeding healing, as well as possible extent of debridement and possibility of hindquarter amputation, he is recommending transfer to a tertiary care center where they could accommodate such complicated issues. After discussion patient is refusing transfer and further surgical intervention. - MRI was unclear due to movement 2/2 patient having pain when on MRI machine 2. Acute on chronic systolic heart failure- resolved - Cardiology consultation appreciated. - stressed importance of continuing diuretics as outpatient - Echo results noted from prior admission with EF 20% 3. Wounds on elbows and sacrum - wound consultation appreciated 4. CAD - continue all home medications - stable 5. b/l AKA secondary to PVD - Left performed by Dr. Rodríguez - Right performed at [facility] 6. Episodes of sustained vtach-stable - monitor - Cardiology on board and continues to adjust medications as needed 7. Disposition - on board arranging for HH for IV therapy and authorization for Vascular Surgery outpatient follow up - Once all arrangements made, medically stable for d/c home Result Diagram: 04/24/18 0513 04/23/18 0459 Results 24hrs Laboratory Tests Test 04/24/18 05:13 White Blood Count 12.0 H Red Blood Count 4.59 L Hemoglobin 10.8 L Hematocrit 34.1 L Mean Corpuscular Volume 74.3 L Mean Corpuscular Hemoglobin 23.5 L Mean Corpuscular Hemoglobin Concent 31.7 L Red Cell Distribution Width 21.8 H Platelet Count 374 Mean Platelet Volume 10.7 H Immature Granulocytes % 0.600 H Neutrophils % 69.4 Lymphocytes % 16.9 Monocytes % 12.3 H Eosinophils % 0.5 Basophils % 0.3 Nucleated Red Blood Cells % 0.0 Immature Granulocytes # 0.070 H Neutrophils # 8.3 H Lymphocytes # 2.0 Monocytes # 1.5 H Eosinophils # 0.1 Basophils # 0.0 Nucleated Red Blood Cells # 0.0 Subjective 24 Hr Interval Summary Free Text/Dictation Patient denies any acute issues and discussed need to follow up with Vascular surgery at [facility] as well as given name of painter foreman as outpatient. No acute overnight events. Exam/Review of Systems Vital Signs Vitals Vital Signs Date Temp Pulse Resp B/P (MAP) Pulse Ox O2 O2 Flow FiO2 Time Delivery Rate 04/24/18 98.1 79 20 99/60 (73) 98 Room Air 07:49 04/24/18 21 07:18 Intake and Output 04/23/18 04/23/18 04/24/18 1515:00 23:00 07:00 IntakeIntake Total 720 ml 1050 ml OutputOutput Total 1300 ml 1200 ml BalanceBalance -580 ml -150 ml Exam General: Patient is sitting up in bed. answering questions appropriately. no acute distress Mentation: Patient is alert and oriented 4, Neck: Supple Respiratory: Clear to auscultation bilaterally. no wheezing or rhonchi Cardiovascular: regular rate and rhythm, no obvious murmurs Gastrointestinal: soft, non-tender to palpation, nondistended, bowel sounds heard. Musculoskeletal: Bilateral AKA, dressing on right stump. moving without any issues. Medications Medications Current Medications Atorvastatin Calcium (Lipitor) 80 mg QHS PO Last administered on 04/23/18 20:50; Admin Dose 80 MG; Start 03/28/18 at 21:00 Budesonide (Pulmicort (Neb)) 0.5 mg BID RESP THERAPY HHN Last administered on 04/24/18 07:17; Admin Dose 0.5 MG; Start 03/28/18 at 20:00 Ferrous Gluconate (Fergon) 325 mg BID PO Last administered on 04/23/18 20:50; Admin Dose 325 MG; Start 03/28/18 at 21:00 Albuterol/ Ipratropium (Duoneb) 3 ml Q6HWA RESP THERAPY HHN Last administered on 04/24/18 07:17; Admin Dose 3 ML; Start 03/28/18 at 20:00 Montelukast Sodium (Singulair) 10 mg QHS PO Last administered on 04/23/18 20:50; Admin Dose 10 MG; Start 03/28/18 at 21:00 Pantoprazole (Protonix Tab) 40 mg DAILY@06 PO Last administered on 04/24/18 05:50; Admin Dose 40 MG; Start 03/29/18 at 06:00 Spironolactone (Aldactone) 25 mg DAILY PO Last administered on 04/23/18 08:48; Admin Dose 25 MG; Start 03/29/18 at 09:00 Tamsulosin HCl (Flomax) 0.4 mg HS PO Last administered on 04/23/18 20:51; Admin Dose 0.4 MG; Start 03/28/18 at 21:00 Tiotropium [place] (Spiriva) 1 inh DAILY INH Last administered on 04/23/18 10:49; Admin Dose 1 INH; Start 03/29/18 at 09:00 Albuterol (Proventil 0.083% (Neb)) 2.5 mg Q2H RESP THERAPY PRN HHN SHORTNESS OF BREATH Last administered on 04/06/18at 19:39; Admin Dose 2.5 MG; Start 03/28/18 at 16:30 IV Flush (NS 3 ml) 3 ml PER PROTOCOL IV ; Start 03/28/18 at 16:30 Ondansetron HCl (Zofran Inj) 4 mg Q6H PRN IV NAUSEA AND/OR VOMITING; Start 04/03 at 16:30 Nitroglycerin (Nitroglycerin (Sl Tab) 0.4 Mg) 1 tab Q5M PRN SL CHEST PAIN; Start 03/28/18 at 16:30 Acetaminophen (Tylenol Tab) 650 mg Q6H PRN PO PAIN LEVEL 1-3 OR FEVER Last administered on 04/13/18at 21:11; Admin Dose 650 MG; Start 03/28/18 at 16:30 Docusate Sodium (Colace) 100 mg Q12H PRN PO CONSTIPATION Last administered on 04/06/18at 22:50; Admin Dose 100 MG; Start 03/28/18 at 16:30 Magnesium Hydroxide (Milk Of Mag) 30 ml DAILY PRN PO CONSTIPATION Last administered on 04/06/18at 22:50; Admin Dose 30 ML; Start 03/28/18 at 16:30 Enoxaparin Sodium (Lovenox) 40 mg DAILY SC Last administered on 04/23/18 08:54; Admin Dose 40 MG; Start 03/29/18 at 09:00 Sacubitril/ Valsartan (Entresto 24 Mg-26 Mg) 1 tab BID PO Last administered on 04/23/18 20:50; Admin Dose 1 TAB; Start 03/28/18 at 21:00 Nystatin (Nystatin Powder) 1 applic BID TOP Last administered on 04/23/18 20 :51; Admin Dose 1 APPLIC; Start 03/28/18 at 21:00 Cholecalciferol (Vitamin D) 2,000 unit BID PO Last administered on 04/23/18 20:50; Admin Dose 2,000 UNIT; Start 03/28/18 at 21:00 Miscellaneous Information (Pending [facility] Order For Wound Care) This patient rivera... PRN PRN XX soiled; Start 03/28/18 at 19:00 Senna/Docusate Sodium (Senokot-S) 2 tab DAILY PO Last administered on 04/23/18 08:49; Admin Dose 1 TAB; Start 03/30/18 at 09:00 Multivitamins Therapeutic (Theragran) 1 tab DAILY PO Last administered on 04/23/18 08:46; Admin Dose 1 TAB; Start 03/30/18 at 09:00 Gabapentin (Neurontin) 200 mg TID PO Last administered on 04/23/18 20:50; Admin Dose 200 MG; Start 03/30/18 at 13:00 Digoxin (Digoxin) 0.125 mg DAILY@13 PO Last administered on 04/23/18 12:23; Admin Dose 0.125 MG; Start 04/02/18 at 13:00 Bisacodyl (Dulcolax) 5 mg DAILY PRN PO CONSTIPATION Last administered on 04/05/18 20:24; Admin Dose 5 MG; Start 04/02/18 at 18:30 Collagenase (Santyl) 1 applic DAILY TOP Last administered on 04/23/18 08:48; Admin Dose 1 APPLIC; Start 04/03/18 at 11:00 Vancomycin HCl (Vanco Iv Per Pharmacy) VANCOMYCIN PER PHARMACY PER PROTOCOL XX ; Start 04/04/18 at 17:30 Furosemide (Lasix) 40 mg DAILY PO Last administered on 04/23/18 08:48; Admin Dose 40 MG; Start 04/06/18 at 09:00 Mupirocin (Bactroban) 1 applic BID TOP Last administered on 04/23/18 20:51; Admin Dose 1 APPLIC; Start 04/06/18 at 21:00 Metoprolol Succinate (Toprol Xl) 50 mg BID PO Last administered on 04/23/18 20:51; Admin Dose 50 MG; Start 04/13/18 at 21:00 Oxycodone HCl (Roxicodone) 30 mg Q6H PRN PO PAIN LEVEL 6-10 Last administered on 04/23/18 23:24; Admin Dose 30 MG; Start 04/13/18 at 16:00 Hydromorphone HCl (Dilaudid) 2 mg Q4H PRN IV SEVERE PAIN LEVEL 7-10 Last administered on 04/24/18 05:51; Admin Dose 2 MG; Start 04/21/18 at 16:00 Vancomycin HCl 250 ml @ 125 mls/hr Q24H IVPB Last administered on 04/23/18 23:13; Admin Dose 125 MLS/HR; Start 04/22/18 at 23:00 IV Flush (NS 10 ml) 10 ml PRN PRN IV IV PROTOCOL; Start 04/23/18 at 16:00 SUSAN FAULKNER MD Apr 24, 2018 08:27
[2018-04-24] MEDS: MULTIVITAMINS THERAPEUTIC TAB PO SCH (08:54)
[2018-04-24] MEDS: TIOTROPIUM 18 MCG CAPSULE INHA DEV INH SCH (08:54)
[2018-04-24] MEDS: SENNA/DOCUSATE NA (8.6MG/50MG) TAB PO SCH (08:54)
[2018-04-24] MEDS: CHOLECALCIFEROL 2,000 UNIT CAP PO SCH ×2 (08:54→20:40)
[2018-04-24] MEDS: COLLAGENASE 5 GM (UD JAR) TOP SCH (08:54)
[2018-04-24] MEDS: GABAPENTIN 100 MG CAP PO SCH ×3 (08:54→20:40)
[2018-04-24] MEDS: SPIRONOLACTONE 25 MG TAB PO SCH (08:54)
[2018-04-24] MEDS: FERROUS GLUCONATE (EC) 325 MG TAB PO SCH ×2 (08:54→20:41)
[2018-04-24] MEDS: NYSTATIN 30 GM POWDER BTL TOP SCH ×2 (08:55→20:41)
[2018-04-24] MEDS: FUROSEMIDE 40 MG TAB PO SCH (08:55)
[2018-04-24] MEDS: MUPIROCIN 2% 22 GM OINT TOP SCH ×2 (08:56→20:41)
--- NOTE | 2018-04-24 09:01 | CONS ---
Date/Time of Note Date/Time of Note DATE: 04/24/18 TIME: 08:58 Assessment/Plan Assessment/Plan Assessment/Plan 1. Congestive heart failure exacerbation, systolic, acute on chronic.- with low EF, will keep euvolemic - reasonable fluid satus. Improved SOB. 2. Cardiomyopathy with severely depressed left ventricular ejection fraction with last being approximately 20%- con't CHF Rx. Con't gentle diuresis. 3. Hypertension - treated - on meds now. 4. Dyslipidemia. 5. History of substance abuse- d/c advised. 6. Chronic obstructive pulmonary disease - no active wheezing now. 7. Bilateral lower extremity amputation and presenting with right stump pain.- s/p IR guidede drainage of collection seen by LE CT - vasculr follows - on anti- bx 8. Questionable history of intracardiac thrombus not seen by most recent echocardiogram dated 01/06/2018, but with severely depressed ejection fraction at that time of 20%. 9. Tobacco intake. 10. SVT-regular recurrent to 160-180. Broke with PO BB. Also questionable WCT ri ght before. Had recurrent SVT o/n 04/01.Slowly improving S tach - sinus now. 11. Fluid collection at stump - surgical team follows. Result Diagram: 04/24/18 0513 04/23/18 0459 Results 24hrs Laboratory Tests Test 04/24/18 05:13 White Blood Count 12.0 H Red Blood Count 4.59 L Hemoglobin 10.8 L Hematocrit 34.1 L Mean Corpuscular Volume 74.3 L Mean Corpuscular Hemoglobin 23.5 L Mean Corpuscular Hemoglobin Concent 31.7 L Red Cell Distribution Width 21.8 H Platelet Count 374 Mean Platelet Volume 10.7 H Immature Granulocytes % 0.600 H Neutrophils % 69.4 Lymphocytes % 16.9 Monocytes % 12.3 H Eosinophils % 0.5 Basophils % 0.3 Nucleated Red Blood Cells % 0.0 Immature Granulocytes # 0.070 H Neutrophils # 8.3 H Lymphocytes # 2.0 Monocytes # 1.5 H Eosinophils # 0.1 Basophils # 0.0 Nucleated Red Blood Cells # 0.0 Consultation Date/Type/Reason Admit Date/Time Mar 29, 2018 at 07:48 Initial Consult Date Requesting Provider: SUSAN FAULKNER MD 24 HR Interval Summary Free Text/Dictation NO acute events - BP in good range - mild SOB - con't wound care. ROS: No fever, no chills, no nausea, no vomiting, no diarrhea/constipation No recent weight changes No chest pain, no PND, no orthopnea - improved SOB No dizziness, blurred vision No thirst, no heat or cold intolerance Exam/Review of Systems Vital Signs Vitals Vital Signs Date Temp Pulse Resp B/P (MAP) Pulse Ox O2 O2 Flow FiO2 Time Delivery Rate 04/24/18 98.1 79 20 99/60 (73) 98 Room Air 07:49 04/24/18 21 07:18 Intake and Output 04/23/18 04/23/18 04/24/18 1515:00 23:00 07:00 IntakeIntake Total 720 ml 1050 ml OutputOutput Total 1300 ml 1200 ml BalanceBalance -580 ml -150 ml Exam General: WN/WD/NAD, AOx 3 HEENT: Unicetric/atraumatic/EOMI (follow commands) NECK: JVD elevated, no thyromegaly Lymph: no lymphadenopathy HEART: regular with no S3, II/ systolic murmur at apex, PMI L LUNGS: Coarse sounds ABD: soft, NT, ND, +BS : Intact Neuro: non focal SKIN: chronic changes EXT: amputated Medications Medications Current Medications Atorvastatin Calcium (Lipitor) 80 mg QHS PO Last administered on 04/23/18 20:50; Admin Dose 80 MG; Start 03/28/18 at 21:00 Budesonide (Pulmicort (Neb)) 0.5 mg BID RESP THERAPY HHN Last administered on 04/24/18 07:17; Admin Dose 0.5 MG; Start 03/28/18 at 20:00 Ferrous Gluconate (Fergon) 325 mg BID PO Last administered on 04/23/18 20:50; Admin Dose 325 MG; Start 03/28/18 at 21:00 Albuterol/ Ipratropium (Duoneb) 3 ml Q6HWA RESP THERAPY HHN Last administered on 04/24/18 07:17; Admin Dose 3 ML; Start 03/28/18 at 20:00 Montelukast Sodium (Singulair) 10 mg QHS PO Last administered on 04/23/18 20:50; Admin Dose 10 MG; Start 03/28/18 at 21:00 Pantoprazole (Protonix Tab) 40 mg DAILY@06 PO Last administered on 04/24/18 05:50; Admin Dose 40 MG; Start 03/29/18 at 06:00 Spironolactone (Aldactone) 25 mg DAILY PO Last administered on 04/23/18 08:48; Admin Dose 25 MG; Start 03/29/18 at 09:00 Tamsulosin HCl (Flomax) 0.4 mg HS PO Last administered on 04/23/18 20:51; Admin Dose 0.4 MG; Start 03/28/18 at 21:00 Tiotropium [place] (Spiriva) 1 inh DAILY INH Last administered on 04/23/18 10:49; Admin Dose 1 INH; Start 03/29/18 at 09:00 Albuterol (Proventil 0.083% (Neb)) 2.5 mg Q2H RESP THERAPY PRN HHN SHORTNESS OF BREATH Last administered on 04/06/18at 19:39; Admin Dose 2.5 MG; Start 03/28/18 at 16:30 IV Flush (NS 3 ml) 3 ml PER PROTOCOL IV ; Start 03/28/18 at 16:30 Ondansetron HCl (Zofran Inj) 4 mg Q6H PRN IV NAUSEA AND/OR VOMITING; Start 03/28/18 at 16:30 Nitroglycerin (Nitroglycerin (Sl Tab) 0.4 Mg) 1 tab Q5M PRN SL CHEST PAIN; Start 03/28/18 at 16:30 Acetaminophen (Tylenol Tab) 650 mg Q6H PRN PO PAIN LEVEL 1-3 OR FEVER Last administered on 04/13/18at 21:11; Admin Dose 650 MG; Start 03/28/18 at 16:30 Docusate Sodium (Colace) 100 mg Q12H PRN PO CONSTIPATION Last administered on 04/06/18at 22:50; Admin Dose 100 MG; Start 03/28/18 at 16:30 Magnesium Hydroxide (Milk Of Mag) 30 ml DAILY PRN PO CONSTIPATION Last adminis tered on 04/06/18at 22:50; Admin Dose 30 ML; Start 03/28/18 at 16:30 Enoxaparin Sodium (Lovenox) 40 mg DAILY SC Last administered on 04/23/18 08:54; Admin Dose 40 MG; Start 12/13/18 at 09:00 Sacubitril/ Valsartan (Entresto 24 Mg-26 Mg) 1 tab BID PO Last administered on 04/23/18 20:50; Admin Dose 1 TAB; Start 03/28/18 at 21:00 Nystatin (Nystatin Powder) 1 applic BID TOP Last administered on 04/23/18 20:51; Admin Dose 1 APPLIC; Start 03/28/18 at 21:00 Cholecalciferol (Vitamin D) 2,000 unit BID PO Last administered on 04/23/18 20:50; Admin Dose 2,000 UNIT; Start 03/28/18 at 21:00 Miscellaneous Information (Pending Santyl Order For Wound Care) This patient rivera... PRN PRN XX soiled; Start 03/28/18 at 19:00 Senna/Docusate Sodium (Senokot-S) 2 tab DAILY PO Last administered on 04/23/18 08:49; Admin Dose 1 TAB; Start 03/30/18 at 09:00 Multivitamins Therapeutic (Theragran) 1 tab DAILY PO Last administered on 04/23/18 08:46; Admin Dose 1 TAB; Start 03/30/18 at 09:00 Gabapentin (Neurontin) 200 mg TID PO Last administered on 04/23/18 20:50; Admin Dose 200 MG; Start 03/30/18 at 13:00 Digoxin (Digoxin) 0.125 mg DAILY@13 PO Last administered on 04/23/18 12:23; Admin Dose 0.125 MG; Start 04/02/18 at 13:00 Bisacodyl (Dulcolax) 5 mg DAILY PRN PO CONSTIPATION Last administered on 04/05/18at 20:24; Admin Dose 5 MG; Start 04/02/18 at 18:30 Collagenase (Santyl) 1 applic DAILY TOP Last administered on 04/23/18 08:48; Admin Dose 1 APPLIC; Start 04/03/18 at 11:00 Vancomycin HCl (Vanco Iv Per Pharmacy) VANCOMYCIN PER PHARMACY PER PROTOCOL XX ; Start 04/04/18 at 17:30 Furosemide (Lasix) 40 mg DAILY PO Last administered on 04/23/18 08:48; Admin Dose 40 MG; Start 04/06/18 at 09:00 Mupirocin (Bactroban) 1 applic BID TOP Last administered on 04/23/18 20:51; Admin Dose 1 APPLIC; Start 04/06/18 at 21:00 Metoprolol Succinate (Toprol Xl) 50 mg BID PO Last administered on 04/23/18 20:51; Admin Dose 50 MG; Start 04/13/18 at 21:00 Oxycodone HCl (Roxicodone) 30 mg Q6H PRN PO PAIN LEVEL 6-10 Last administered on 04/23/18 23:24; Admin Dose 30 MG; Start 04/13/18 at 16:00 Hydromorphone HCl (Dilaudid) 2 mg Q4H PRN IV SEVERE PAIN LEVEL 7-10 Last administered on 04/24/18 05:51; Admin Dose 2 MG; Start 04/21/18 at 16:00 Vancomycin HCl 250 ml @ 125 mls/hr Q24H IVPB Last administered on 04/23/18 23:13; Admin Dose 125 MLS/HR; Start 04/22/18 at 23:00 IV Flush (NS 10 ml) 10 ml PRN PRN IV IV PROTOCOL; Start 04/23/18 at 16:00 PASTORA CUEVAS MD Apr 24, 2018 09:01
[2018-04-24] MEDS: ENOXAPARIN 40 MG/0.4 ML SYG SC SCH (09:02)
[2018-04-24] MEDS: oxyCODONE 15 MG TAB PO PRN ×2 (09:03→19:19)
[2018-04-24] MEDS ORDERED: FERGON PO (11:25)
[2018-04-24] MEDS ORDERED: APIX5TAB PO (11:25)
[2018-04-24] MEDS ORDERED: TAMS-14 PO (11:25)
[2018-04-24] MEDS ORDERED: SENOKOTS PO (11:25)
[2018-04-24] MEDS ORDERED: FURO40TA4 PO (11:25)
[2018-04-24] MEDS ORDERED: TIOT18CA INH (11:25)
[2018-04-24] MEDS ORDERED: SPIR25TA PO (11:25)
[2018-04-24] MEDS ORDERED: SACU1TAB PO (11:25)
[2018-04-24] MEDS ORDERED: METO-319 PO (11:25)
[2018-04-24] MEDS ORDERED: OXYC15TA PO (11:25)
[2018-04-24] MEDS ORDERED: DIGO125T PO (11:25)
[2018-04-24] MEDS ORDERED: DOXY100T20 PO (11:26)
--- NOTE | 2018-04-24 11:36 | PDOCDIS ---
Discharge Instructions DIAGNOSIS Discharge Diagnosis 1. Acute infection in right thigh s/p amputation at [facility]- stable 2. Acute on chronic systolic heart failure- resolved 3. Wounds on elbows and sacrum 4. CAD 5. b/l AKA secondary to PVD 6. Episodes of sustained vtach-stable CONDITION [id number] Patient Condition: [id number] Stable HOME CARE INSTRUCTIONS: [id number] Diet Instructions: [id number] Low Fat /Cholesterol [id number] Special Diet: [id number] LOW FAT LOW CHOLESTEROL FOLLOW UP/APPOINTMENTS Follow-up Plan 1. Follow up with your primary care physician in 1 week 2. Follow up with your Vascular Surgeon at [facility] as soon as possible. You can also follow up with Dr. Sloan if unable to get an appointment in the next week 3. Take all medications as prescribed and very important to continue all your cardiac medications to avoid shortness of breath or arrhythmias 4. Take pain medications as prescribed and if experiencing constipation take Senna S. 5. You were followed by Dr. Weir for pain management in the hospital and he is recommending you follow up with Dr. Satinder Fortune MD for continued pain management. 6. You will need to continue on IV Vancomycin until 05/30/18 and then transition over to Doxycycline 100mg twice a day for life if no surgical intervention is performed on your right lower extremity. 7. Follow up with Cardiology in 2 weeks 8. If symptoms worsen, please go to the nearest emergency department. REFERRALS Other Referrals Swapnil Sloan MD Specialty: Cardiothoracic Surgery/ Vascular Comments Office Address [address] [place] [id number] Office SUSAN FAULKNER MD Apr 24, 2018 11:36
[2018-04-24] MEDS: DIGOXIN 0.125 MG TAB PO SCH (12:55)
--- NOTE | 2018-04-24 14:23 | CONS ---
Date/Time of Note Date/Time of Note DATE: 04/24/18 TIME: 14:21 Assessment/Plan Assessment/Plan Hospital Course All noted, looks comfortable no fevers. Microbiology: Aspirated fluid culture from right lower extremity growing MRSA X-ray of right lower extremity revealed possible osteomyelitis of the distal f emur. Antimicrobials: Vancomycin Allergy: Tetracycline Physical examination: Well-nourished well-developed elderly -[place] man who is in no distress. Head atraumatic normocephalic neck is supple chest rise symmetrical breath sounds diminished bases. Heart: S1-S2. Abdomen soft bowel sounds present. Extremities without cyanosis patient has bilateral above-knee amputation, right stump painful to touch Assessment: 1. Leukocytosis secondary to right lower extremity stump MRSA abscess that was drained and probable osteomyelitis 2. Status post recurrent CHF/COPD exacerbation 3. Severe PAD 4. Substance abuse 5. Multiple wounds and pressure sores 6. History of methicillin-resistant Staphylococcus aureus infected graft, st atus post debridement back in 06/2017, per patient, the rest of the graft was removed at [facility], he completed IV vancomycin back in January 7. History of CABG and VA 8. Diabetes 9. MRSA nares colonization 10. Medical noncompliance with chronic tobacco use Plan: Clinically unchanged, pending dc arrangements, continue IV vancomycin for 8 weeks, pt [facility] further [facility], likely needs to be on antibiotics lifelong. Status post left upper extremity PICC DW staff Result Diagram: 04/24/18 0513 04/23/18 0459 Results 24hrs Laboratory Tests Test 04/24/18 05:13 White Blood Count 12.0 H Red Blood Count 4.59 L Hemoglobin 10.8 L Hematocrit 34.1 L Mean Corpuscular Volume 74.3 L Mean Corpuscular Hemoglobin 23.5 L Mean Corpuscular Hemoglobin Concent 31.7 L Red Cell Distribution Width 21.8 H Platelet Count 374 Mean Platelet Volume 10.7 H Immature Granulocytes % 0.600 H Neutrophils % 69.4 Lymphocytes % 16.9 Monocytes % 12.3 H Eosinophils % 0.5 Basophils % 0.3 Nucleated Red Blood Cells % 0.0 Immature Granulocytes # 0.070 H Neutrophils # 8.3 H Lymphocytes # 2.0 Monocytes # 1.5 H Eosinophils # 0.1 Basophils # 0.0 Nucleated Red Blood Cells # 0.0 Consultation Date/Type/Reason Admit Date/Time Mar 29, 2018 at 07:48 Initial Consult Date Type of Consult ID Requesting Provider: SUSAN FAULKNER MD Exam/Review of Systems Vital Signs Vitals Vital Signs Date Temp Pulse Resp B/P (MAP) Pulse Ox O2 O2 Flow FiO2 Time Delivery Rate 04/24/18 87 18 96 21 13:33 04/24/18 98.6 124/60 Room Air 11:49 (81) Intake and Output 04/23/18 04/23/18 04/24/18 1515:00 23:00 07:00 IntakeIntake Total 720 ml 1050 ml OutputOutput Total 1300 ml 1200 ml BalanceBalance -580 ml -150 ml Medications Medications Current Medications Atorvastatin Calcium (Lipitor) 80 mg QHS PO Last administered on 04/23/18 20:50; Admin Dose 80 MG; Start 03/28/18 at 21:00 Budesonide (Pulmicort (Neb)) 0.5 mg BID RESP THERAPY HHN Last administered on 04/24/18 07:17; Admin Dose 0.5 MG; Start 03/28/18 at 20:00 Ferrous Gluconate (Fergon) 325 mg BID PO Last administered on 04/24/18 08:54; Admin Dose 325 MG; Start 03/28/18 at 21:00 Albuterol/ Ipratropium (Duoneb) 3 ml Q6HWA RESP THERAPY HHN Last administered on 04/24/18 13:33; Admin Dose 3 ML; Start 03/28/18 at 20:00 Montelukast Sodium (Singulair) 10 mg QHS PO Last administered on 04/23/18 20:50; Admin Dose 10 MG; Start 03/28/18 at 21:00 Pantoprazole (Protonix Tab) 40 mg DAILY@06 PO Last administered on 04/24/18 05:50; Admin Dose 40 MG; Start 03/29/18 at 06:00 Spironolactone (Aldactone) 25 mg DAILY PO Last administered on 04/24/18 08:54; Admin Dose 25 MG; Start 03/29/18 at 09:00 Tamsulosin HCl (Flomax) 0.4 mg HS PO Last administered on 04/23/18 20:51; Admin Dose 0.4 MG; Start 03/28/18 at 21:00 Tiotropium [place] (Spiriva) 1 inh DAILY INH Last administered on 04/24/18 08:54; Admin Dose 1 INH; Start 03/29/18 at 09:00 Albuterol (Proventil 0.083% (Neb)) 2.5 mg Q2H RESP THERAPY PRN HHN SHORTNESS OF BREATH Last administered on 04/06/18 19:39; Admin Dose 2.5 MG; Start 03/28/18 at 16:30 IV Flush (NS 3 ml) 3 ml PER PROTOCOL IV ; Start 03/28/18 at 16:30 Ondansetron HCl (Zofran Inj) 4 mg Q6H PRN IV NAUSEA AND/OR VOMITING; Start 03/28/18 at 16:30 Nitroglycerin (Nitroglycerin (Sl Tab) 0.4 Mg) 1 tab Q5M PRN SL CHEST PAIN; Start 03/28/18 at 16:30 Acetaminophen (Tylenol Tab) 650 mg Q6H PRN PO PAIN LEVEL 1-3 OR FEVER Last administered on 04/13/18at 21:11; Admin Dose 650 MG; Start 03/28/18 at 16:30 Docusate Sodium (Colace) 100 mg Q12H PRN PO CONSTIPATION Last administered on 04/06/18 22:50; Admin Dose 100 MG; Start 03/28/18 at 16:30 Magnesium Hydroxide (Milk Of Mag) 30 ml DAILY PRN PO CONSTIPATION Last administered on 04/06/18 22:50; Admin Dose 30 ML; Start 03/28/18 at 16:30 Enoxaparin Sodium (Lovenox) 40 mg DAILY SC Last administered on 04/24/18 09:02; Admin Dose 40 MG; Start 03/29/18 at 09:00 Sacubitril/ Valsartan (Entresto 24 Mg-26 Mg) 1 tab BID PO Last administered on 04/23/18 20:50; Admin Dose 1 TAB; Start 03/28/18 at 21:00 Nystatin (Nystatin Powder) 1 applic BID TOP Last administered on 04/24/18 08:55; Admin Dose 1 APPLIC; Start 03/28/18 at 21:00 Cholecalciferol (Vitamin D) 2,000 unit BID PO Last administered on 04/24/18 08:54; Admin Dose 2,000 UNIT; Start 03/28/18 at 21:00 Miscellaneous Information (Pending Santyl Order For Wound Care) This patient rivera... PRN PRN XX soiled; Start 03/28/18 at 19:00 Senna/Docusate Sodium (Senokot-S) 2 tab DAILY PO Last administered on 04/24/18 08:54; Admin Dose 2 TAB; Start 03/30/18 at 09:00 Multivitamins Therapeutic (Theragran) 1 tab DAILY PO Last administered on 08:54; Admin Dose 1 TAB; Start 03/30/18 at 09:00 Gabapentin (Neurontin) 200 mg TID PO Last administered on 04/24/18 12:55; Admin Dose 200 MG; Start 03/30/18 at 13:00 Digoxin (Digoxin) 0.125 mg DAILY@13 PO Last administered on 04/24/18 12:55; Admin Dose 0.125 MG; Start 04/02/18 at 13:00 Bisacodyl (Dulcolax) 5 mg DAILY PRN PO CONSTIPATION Last administered on 04/05/18 20:24; Admin Dose 5 MG; Start 04/02/18 at 18:30 Collagenase (Santyl) 1 applic DAILY TOP Last administered on 04/24/18 08:54; Admin Dose 1 APPLIC; Start 04/03/18 at 11:00 Vancomycin HCl (Vanco Iv Per Pharmacy) VANCOMYCIN PER PHARMACY PER PROTOCOL XX ; Start 04/04/18 at 17:30 Furosemide (Lasix) 40 mg DAILY PO Last administered on 04/24/18 08:55; Admin Dose 40 MG; Start 04/06/18 at 09:00 Mupirocin (Bactroban) 1 applic BID TOP Last administered on 04/24/18 08:56; Admin Dose 1 APPLIC; Start 04/06/18 at 21:00 Metoprolol Succinate (Toprol Xl) 50 mg BID PO Last administered on 04/23/18 20:51; Admin Dose 50 MG; Start 04/13/18 at 21:00 Oxycodone HCl (Roxicodone) 30 mg Q6H PRN PO PAIN LEVEL 6-10 Last administered on 04/24/18 09:03; Admin Dose 30 MG; Start 04/13/18 at 16:00 Hydromorphone HCl (Dilaudid) 2 mg Q4H PRN IV SEVERE PAIN LEVEL 7-10 Last administered on 04/24/18at 11:28; Admin Dose 2 MG; Start 04/21/18 at 16:00 Vancomycin HCl 250 ml @ 125 mls/hr Q24H IVPB Last administered on 04/23/18at 23:13; Admin Dose 125 MLS/HR; Start 04/22/18 at 23:00 IV Flush (NS 10 ml) 10 ml PRN PRN IV IV PROTOCOL; Start 04/23/18 at 16:00 NAYELI MADERA NP Apr 24, 2018 14:23
[2018-04-24] MEDS ORDERED: VITAMIN A & D 5 GM OINT PACKET TOP ONE (18:30)
[2018-04-24] MEDS: VANCOMYCIN 1 GM 250 ML IVPB SCH (19:19)
--- NOTE | 2018-04-24 19:29 | DS ---
Date/Time of Note Date/Time of Note DATE: 04/24/18 TIME: 19:29 Discharge Summary Admission/Discharge Info Admit Date/Time Mar 29, 2018 at 07:48 Discharge Date/Time 04/24/18 2200 Discharge Diagnosis 1. Acute infection in right thigh s/p amputation at [facility]- stable 2. Acute on chronic systolic heart failure- resolved 3. Wounds on elbows and sacrum 4. CAD 5. b/l AKA secondary to PVD 6. Episodes of sustained vtach-stable Patient Condition: Stable Consults cardiology- Dr. Weathers General Surgery- Dr. Rodriguez IR- Dr. Henry Infectious disease- Dr. Moe Vascular Surgery- Dr. Sloan Pain management- Dr. Weir Procedures PROCEDURE: XR Chest. CLINICAL INDICATION: PICC line placement TECHNIQUE: Single frontal view of the chest was obtained COMPARISON: Same day FINDINGS: There is a new left-sided PICC line in place with its tip overlying the region of the left brachiocephalic vein.. The heart, mediastinum, and lungs are unchanged. RPTAT: AA IMPRESSION: Left-sided PICC line in the region of the left brachiocephalic vein. .Alec Rico MD, MD Date Time Electronically viewed and signed by .Alec Rico MD, MD on 04/23/2018 15:02 PROCEDURE: XR Femur. CLINICAL INDICATION: Leg pain TECHNIQUE: Four views of the right femur were obtained COMPARISON: CT 04/14/2018 FINDINGS: Postoperative changes from the amputation. Atherosclerotic changes of the right lower extremity proximal arteries. Mild distal erosion of the femoral diaphysis may be postoperative. Heterotopic ossification/calcification present distally. IMPRESSION: Osteomyelitis of the distal femur is not excluded. Consider MRI for further evaluation. RPTAT: AADD .Ten Meraz MD, Date Time Electronically viewed and signed by .Ten Meraz MD, MD on 04/19/2018 13:11 PROCEDURE: CT angiogram of the aorta and bilateral runoff. CLINICAL INDICATION: Peripheral vascular disease. Right leg pain and swelling. Possible osteomyelitis of the stump. Abnormal lower extremity arterial Doppler study. TECHNIQUE: CT angiogram of the abdomen and pelvis with bilateral runoff was performed on the [employer] volumetric [address] scanner . The patient was scanned after administration of 90 cc of Omnipaque 350. intravenous contrast. Oral contrast was also administered. 3-D sagittal and coronal reformatted images were obtained from the axial source images. One or more of the following dose reduction techniques were used: Automated exposure control. Adjustment of the mA and/or kV according to patient size. Use of iterative reconstruction technique. DICOM images are available. DLP 504.41 mGycm. CTDI vol 8.95, and 92.95 mGy COMPARISON: Lower extremity Doppler study 03/29/2018. FINDINGS: CTA Aorta: There is extensive aortoiliac vascular calcifications and occlusion of the distal abdominal aorta and bilateral iliac arteries. There is occlusion of the left aortofemoral and fem-fem bypass grafts. CTA Right leg: There is occlusion of the right common femoral artery including femoral bifurcation. There is opacification of the right profunda femoris with severe calcific plaques along the proximal aspect of the vessel. There is severe diffuse calcific disease of the right superficial femoral artery with multiple moderate to severe tandem stenoses. There is occlusion of the vessel in the distal thigh. Loculated fluid collection along the right femur stump is again noted. CTA Left leg: There is occlusion of the left common femoral artery and femoral bifurcation. There is a patent small-caliber left superficial femoral artery with mild focal stenosis in the mid thigh. There is occlusion of the SFA in the distal thigh. The patient is status post above knee amputation. There is a patent profunda femoris. CT pelvis: Homogeneous enhancement of the inferior aspect of the left kidney is noted. There is fat containing periumbilical hernia. There is moderate stool in the visualized colon suggestive of constipation. There is no mass, lymphadenopathy or fluid collection in the lower pelvis. There is mild prostatomegaly. IMPRESSION: Vascular: 1. Extensive aortoiliac vascular calcifications with occlusion of the distal abdominal aorta and bilateral iliac arteries. 2. Occlusion of the aorta left femoral bypass graft. 3. Occlusion of the fem-fem bypass graft. Right le. Occlusion of the right common femoral artery and femoral bifurcation. 2. Diffuse severe calcific disease of the right SFA with multiple moderate to severe tandem stenoses. 3. Severe plaque at the proximal aspect of the profunda femoris. 4. Wfodk-amq-gvgr amputation with loculated fluid collection along the stump. Left le. Occlusion of the left common femoral artery and femoral bifurcation. 2. Small caliber patent left SFA with mild focal stenosis in the mid thigh. 3. Patent left profunda femoris. 4. Xpqri-vph-lpow amputation. RPTAT: HHO .Valdo Asher MD, Date Time Electronically viewed and signed by .Valdo Asher MD, MD on 04/14/2018 16:36 PROCEDURE: Ultrasound guided aspiration of right lower extremity subcutaneous fluid collection. CLINICAL INDICATION: History of above-knee amputation and fluid collection in the subcutaneous tissues of the stump. TECHNIQUE: Prior to the procedure, informed consent was obtained. Risks including bleeding and infection were explained to the patient. The patient understood was willing to proceed. A procedural pause was performed. The patient's name, date of , and procedure to be performed were verified. Using local anesthetic, sterile technique and ultrasound guidance, a 16-gauge needle was advanced into the fluid collection in the right lower extremity. 12 ml of brownish fluid was aspirated and sent for laboratory analysis. The patient tolerated the procedure well. COMPARISON: CT scan of the lower extremity dated April 10, 2018. FINDINGS: Images demonstrate the needle within the nodule in question. Specimens: Fluid from the collection in the right lower extremity. Blood loss: 1 ml. Complications: None. Superintendent Power: None. Anesthesia: Local. Graft/Implant: None. IMPRESSION: 1. Satisfactory ultrasound-guided aspiration of right lower extremity fluid collection. Call report: A call report of the findings was made to Dr. Carranza on April 12, 2018 at 1420 hours. RPTAT: QQ .Sam Henry MD, Date Time Electronically viewed and signed by .Sam Henry MD, MD on 04/12/2018 16:28 PROCEDURE: CT right lower extremity without contrast CLINICAL INDICATION: . Abscess versus seroma TECHNIQUE: Spiral CT images through the right lower extremity without the use of contrast. Multiplanar reconstructions. The total exam CTDI equals 18.35 mGy and the total exam DLP equals 708.71 mGy-cm. . One or more of the following dose reduction techniques were used: automated exposure control, adjustment of the mA and/or kV according to patient size, or use of iterative reconstruction technique. DICOM images are available. COMPARISON: CT runoff study from 06/28/2017 and MRI from the day prior FINDINGS: There is diffuse osteopenia. There is heterotopic bone formation and periosteal thickening of the distal right femur. The patient is status post right above knee amputation. Extensive atherosclerotic vascular calcification. There is a loculated fluid collection in the distal and posterior aspect of the right lower extremity stump. Only minimal fluid was seen on the prior CT from 06/28/2017. This collection measures 4.9 cm transverse by 3.4 cm AP by 6.9 cm craniocaudad. Fluid extends anterior to the distal. The as well, new since the 07/02 CT. The cortex heterogeneity appears similar to the prior June CT without gross bony erosive change seen. No other fluid collections are identified. No fracture or dislocation is seen. IMPRESSION: Loculated fluid collection inferior and distal to the distal femur and likely connecting with fluid extending anterior to the distal end of the femur. These changes are essentially new since the prior study of 07/02 which would make abscess more likely than seroma. No definite changes to specifically suggest osteomyelitis. RPTAT: HLBE Physician Rajat Date Time Electronically viewed and signed by Stephenie Hays Physician on 04/11/2018 05:34 PROCEDURE: MRI OF THE right THIGH CLINICAL INDICATION: Infection TECHNIQUE: Significantly limited exam with only coronal T1 and STIR images obtained. There is also motion artifact. The patient was unable to complete exam.. Images were interpreted on a high-resolution PACS system. COMPARISON: NM 04/08/2018; MR ORALIAPINE 09/30/2013 FINDINGS: Exam is significantly limited with limited sequences obtained before termination of exam, and motion artifact. Allowing for these limitations there appears to be soft tissue edema extending from the mid to distal 5 surrounding the femur (coronal image 28). There may be more focal appearing fluid collection at the amputation stump measuring approximately 7 x 4.5 cm (series 4 image 21). The patient is post isdmh-isy-[id number] amputation bilaterally. Evaluation for osteomyelitis is significantly limited because of the aforementioned limitations of the exam. IMPRESSION: Exam is significantly limited with few sequences able to be obtained and motion artifact. Allowing for these limitations there appears to be soft tissue edema surrounding the femur from the mid thigh to the amputation site concerning for soft tissue infection. Question more focal appearing fluid collection at the amputation site which could represent an abscess versus seroma. Consider further evaluation with CT with contrast if the patient is able. RPTAT:AAJJ Physician Ida Date Time Electronically viewed and signed by Physician Ida on 04/10/2018 08:16 PROCEDURE: Indium-111 labeled white blood cell scan CLINICAL INDICATION: 62 -year-old patient with fever and leukocytosis, status post right nbuck-rya-tsxy amputation. TECHNIQUE: Following the intravenous injection of 0.5 mCi of Indium-111 labeled white blood cells, limited anterior and posterior planar spot images of the lower chest, abdomen, pelvis and both I were obtained 24 hours post injection. The the patient was unable to tolerate additional images. COMPARISON: No prior indium scans. FINDINGS: Focus of heterogeneously increased activity is seen in the right proximal thigh, at / or above the right knee. The patient is status post right czbrz-nun-zszw amputation. No other definite abnormal areas of increased activity are seen in the study, including the visualized portions of the, chest, abdomen, pelvis and remainder of the visualized portions of the lower extremities. Physiologic uptake is noted in the liver and spleen. IMPRESSION: 1. Focus of heterogeneously increased uptake in the right medial proximal thigh at the level of/ slightly above the right knee. The finding likely represent infectious process. 2. No other definite abnormal focal areas of increased activity in the obtained limited views. RPTAT: HH .Huong Holt MD, MD Date Time Electronically viewed and signed by .Huong Holt MD, on 04/08/2018 14:37 PROCEDURE: XR Chest. CLINICAL INDICATION: Chest pain TECHNIQUE: Single portable view of the chest was obtained COMPARISON: CR CHEST 05/25/2017 , 03/28/2018 FINDINGS: The heart is enlarged. There is unchanged elevation of the right diaphragm with right lower lobe pleural thickening. There is no focal infiltrate. The previously seen right lower lobe infiltrate has resolved. There is no pneumothorax. RPTAT: AA IMPRESSION: Mild Cardiomegaly. Unchanged elevation of the right diaphragm with right lower lobe pleural thickening. Resolved right lower lobe infiltrate. .Alec Rico MD, MD Date Time Electronically viewed and signed by .Alec Rico MD, MD on 04/04/2018 11:50 PROCEDURE: XR right shoulder. CLINICAL INDICATION: shoulder discomfort TECHNIQUE: AP Internal and external rotation views of the right shoulder were performed. COMPARISON: None. FINDINGS: No acute fracture or dislocation. Mild degenerative changes the glenohumeral and acromioclavicular joints. No focal soft tissue abnormality or osseous lesion. IMPRESSION: Mild degenerative changes without acute abnormality of the right shoulder. RPTAT:AAJJ Carolann Cohen Physician Date Time Electronically viewed and signed by Carolann Cohen Physician on 04/03/2018 15:56 PROCEDURE: Bilateral lower extremity arterial ultrasound CLINICAL INDICATION: Lower extremity pain and claudication. TECHNIQUE: Johnson-scale and color ultrasound images with doppler of the lower extremities were obtained COMPARISON: None available FINDINGS: The patient has bilateral qzbxe-jzx-kugk amputations. Occluded right common femoral and superficial femoral arteries. Occluded left common femoral artery. Reconstitution of the left proximal superficial femoral artery via collateral vessel. Monophasic wave forms are seen throughout the patent arteries. Rt [employer]ER occluded. Rt Profunda 39 cm/s Rt Prox SFA occluded. Rt Mid SFA occluded. Rt Dist SFA occluded. Rt MAYDA N/A Lt COMMERCIAL [employer]LLER occluded. Lt Profunda 14 cm/s Lt Prox SFA 12 cm/s Lt Mid SFA 10 cm/s Lt Dist SFA 6 cm/s Lt MAYDA N/A IMPRESSION: Bilateral sowcb-mfq-ewpt amputations. Occluded right common femoral and superficial femoral arteries. Reconstitution of the profunda femoris. Occluded left common femoral artery with reconstitution of the profunda femoris and proximal left superficial femoral artery. Monophasic waveforms throughout the left superficial femoral artery, compatible with inflow disease. If further characterization of the arterial vasculature is needed CTA is recommended. RPTAT: AA .Geoff Houser MD, MD Date Time Electronically viewed and signed by .Geoff Houser MD, MD on 03/29/2018 11:58 PROCEDURE: XR Chest. CLINICAL INDICATION: Chest pain TECHNIQUE: Single frontal view of the chest was obtained COMPARISON: CR CHEST 05/25/2017 FINDINGS: The heart is enlarged. The thoracic aorta is calcified. There is right pleural thickening and right lower lobe atelectasis. The left lung base was not completely included. There is no pneumothorax. RPTAT: AA IMPRESSION: Mild cardiomegaly. Calcified aorta consistent with atherosclerotic disease. Right pleural thickening and right lower lobe atelectasis. .Alec Rico MD, MD Date Time Electronically viewed and signed by .Alec Rico MD, MD on 03/28/2018 14:23 PROCEDURE: US Lower extremity Venous. CLINICAL INDICATION: Bilateral lower extremity edema TECHNIQUE: Multiple sonographic images of the bilateral lower extremity deep venous system was obtained utilizing grayscale, color-flow, compressive sonography and doppler imaging with augmentation. The images were reviewed on a PACS workstation. COMPARISON: None. FINDINGS: There is normal compressibility and flow within the bilateral common femoral, femoral veins. The patient is status post bilateral AKA. RPTAT: AA IMPRESSION: No sonographic evidence for deep venous thrombosis. .Alec Rico MD, Date Time Electronically viewed and signed by .Alec Rico MD, on 03/28/2018 14:55 Hx of Present Illness 62 yo M with PMH systolic CHF, CAD, COPD, and b/l AKA secondary to PVD presents to ED with worsening pain in right thigh. Patient states he has been experiencing pain in the thigh for the past 5 days. He admits to trying cocaine, marijuana, and alcohol for pain relief but no improvement. He last used substances on Monday. Patient denies any trauma to area and unsure why he is experiencing the pain. Patient also admits to misplacing his Lasix bottle and has not taken his medication in 2 days. He admits to shortness of breath but denies any chest pain, palpations, wheezing, dizziness, LOC, abdominal issues, or urinary issues. He is concerned about noted drainage around his groin area as well. He has been using his elbows to readjust himself due to not being able to use his legs which has been causing skin breakdown. Patient states he lives alone but has good family support. Refusing SNF placement as well. Hospital Course Patient was admitted for treatment of acute on chronic congestive heart failure and Cardiology was consulted for assistance with management. Patient was continue on diuretics and blood pressure control which helped improve his respiratory status and overall cardiac stability. Patients clinical course was complicated by episodes of sustained Vtach and after adjustments to his medications, was controlled. Given patients right thigh/stump pain, workup was performed which included multiple imaging studies there were concerning for abscess formation and possible osteomyelitis. IR was consulted for drainage of the abscess for symptomatic relief as well as diagnostic purposes. The purulent drainage was sent for cultures and grew MRSA among other organisms. Infectious disease was on board for antibiotic recommendations and management and recommended to continue on IV Vancomycin for 8 weeks followed by Doxycycline. Various subspecialists were consulted including Vascular Surgery, and General Surgery to assess need for further intervention. Due to the right leg being a mputation at another facility and complicated nature of patients vasculature, recommendations were made for follow up with either patients original Vascular surgeon at [facility] or transfer to tertiary center. Patient was advised that he would most likely need extensive debridement and possible further amputation which he refused. He opted for antibiotics and pain control prior to pursuing any surgical intervention. Patients presenting symptoms improved during course of hospitalization. Pain was controlled with PO regime and arrangements were made for IV antibiotics to be continued at home. On day of discharge, patients vitals and physical exam were stable and patient was discharged home in stable condition. It was stressed to patient that he continue all medications as prescribed and follow up with Vascular Surgery at [facility] as soon as possible. Home Meds Active Scripts Doxycycline Hyclate* (Doxycycline Hyclate*) 100 Mg Tablet.dr, 100 MG PO BID for 30 Days, #60 TAB 10 Refills Start on 05/31/18 when completed IV Vancomycin Prov:SUSAN CARRANZA MD 04/24/18 Sennosides/Docusate Sodium (Dok Plus Tablet) 1 Each Tablet, 1 TAB PO BID PRN for CONSTIPATION for 30 Days, #60 TAB 6 Refills Prov:SUSAN CARRANZA MD 04/24/18 Furosemide* (Furosemide*) 40 Mg Tablet, 40 MG PO DAILY for 30 Days, #30 TAB 6 Refills Prov:SUSAN CARRANZA MD 04/24/18 Oxycodone Hcl* (IR) (Oxycodone Hcl*) 15 Mg Tablet, 30 MG PO Q6H PRN for PAIN LEVEL 6-10 for 30 Days, #120 TAB Prov:SUSAN CARRANZA MD 04/24/18 Sacubitril/Valsartan (Entresto 24 mg-26 mg Tablet) 1 Each Tablet, 1 TAB PO BID for 30 Days, #60 TAB 6 Refills Prov:SUSAN CARRANZA MD 04/24/18 Metoprolol Succinate* (Toprol XL*) 50 Mg Tab.er.24h, 50 MG PO BID for 30 Days, #60 TAB 6 Refills Prov:SUSAN CARRANZA MD 04/24/18 Digoxin* (Digitek*) 125 Mcg Tablet, 0.125 MG PO DAILY@13 for 30 Days, #30 TAB 6 Refills Prov:SUSAN CARRANZA MD 04/24/18 Apixaban* (Eliquis*) 5 Mg Tablet, 5 MG PO BID for 30 Days, #60 TAB 6 Refills Prov:SUSAN CARRANZA MD 04/24/18 Spironolactone* (Aldactone*) 25 Mg Tablet, 25 MG PO DAILY for 30 Days, #30 TAB 6 Refills Prov:SUSAN CARRANZA MD 04/24/18 Tiotropium [place]* (Spiriva*) 18 Mcg Cap.w.dev, 1 INH INH DAILY for 30 Days, #30 DOSE 2 Refills Prov:SUSAN CARRANZA MD 04/24/18 Tamsulosin Hcl* (Flomax*) 0.4 Mg Cap.er.24h, 0.4 MG PO HS for 30 Days, #30 CAP 2 Refills Prov:SUSAN CARRANZA MD 04/24/18 Ferrous Gluconate* (Fergon*) 325 Mg Tab, 325 MG PO BID, #60 TAB 2 Refills Prov:SUSAN CARRANZA MD 04/24/18 Pantoprazole* (Pantoprazole*) 40 Mg Tablet.dr, 40 MG PO DAILY@06 for 30 Days, #30 TAB 2 Refills Prov:MASTER HOWARD 01/29/18 Budesonide* (Budesonide*) 0.5 Mg/2 Ml Ampul.neb, 0.5 MG HHN BID RESP THERAPY for 30 Days, #30 AMP 2 Refills Prov:MASTER HOWARD 01/29/18 Ipratropium-Albuterol (Ipratropium-Albuterol) 0.5-3 Mg/3 Ml Ampul.neb, 3 ML HHN Q6HWA RESP THERAPY for 30 Days, #30 DOSE Prov:MASTER HOWARD 01/29/18 Reported Medications Montelukast Sodium* (Montelukast Sodium*) 10 Mg Tablet, 10 MG PO QHS, #30 TAB 03/28/18 Cholecalciferol (Vitamin D3) (Vitamin D-3) 2,000 Unit Tablet, 2000 UNIT PO BID, TAB 03/28/18 Atorvastatin* (Atorvastatin*) 80 Mg Tablet, 80 MG PO QHS, #30 TAB 06/27/17 Discontinued Reported Medications Metoprolol Succinate* (Toprol XL*) 25 Mg Tab.sr.24h, 12.5 MG PO DAILY, #30 TAB 03/28/18 Discontinued Scripts Furosemide* (Furosemide*) 40 Mg Tablet, 40 MG PO BID for 60 Days, #120 TAB 5 Refills Prov:NIKI MCCARTHY MD 02/04/18 Follow-up Plan 1. Follow up with your primary care physician in 1 week 2. Follow up with your Vascular Surgeon at [facility] as soon as possible. You can also follow up with Dr. Sloan if unable to get an appointment in the next week 3. Take all medications as prescribed and very important to continue all your cardiac medications to avoid shortness of breath or arrhythmias 4. Take pain medications as prescribed and if experiencing constipation take Senna S. 5. You were followed by Dr. Weir for pain management in the hospital and he is recommending you follow up with Dr. Satinder Fortune MD for continued pain management. 6. You will need to continue on IV Vancomycin until 05/30/18 and then transition over to Doxycycline 100mg twice a day for life if no surgical intervention is performed on your right lower extremity. 7. Follow up with Cardiology in 2 weeks 8. If symptoms worsen, please go to the nearest emergency department. Primary Care Provider Not On Staff Doctor Time spent on discharge: > 30 minutes Pending Labs Laboratory Tests Test 04/24/18 05:13 White Blood Count 12.0 10^3/ul (4.8-10.8) Red Blood Count 4.59 10^6/ul (4.70-6.10) Hemoglobin 10.8 g/dl (14.0-18.0) Hematocrit 34.1 % (42.0-52.0) Mean Corpuscular Volume 74.3 fl (82.0-101.0) Mean Corpuscular Hemoglobin 23.5 pg (29.0-33.0) Mean Corpuscular Hemoglobin Concent 31.7 g/dl (32.0-37.0) Red Cell Distribution Width 21.8 % (11.5-14.5) Platelet Count 374 10^3/UL (140-415) Mean Platelet Volume 10.7 fl (7.4-10.4) Immature Granulocytes % 0.600 % (0.001-0.429) Neutrophils % 69.4 % (39.0-77.0) Lymphocytes % 16.9 % (15.0-51.0) Monocytes % 12.3 % (0.0-11.0) Eosinophils % 0.5 % (0.0-7.0) Basophils % 0.3 % (0.0-2.0) Nucleated Red Blood Cells % 0.0 /100WBC (0.0-0.0) Immature Granulocytes # 0.070 10^3/ul (0.0-0.031) Neutrophils # 8.3 10^3/ul (1.6-7.5) Lymphocytes # 2.0 10^3/ul (0.8-2.9) Monocytes # 1.5 10^3/ul (0.3-0.9) Eosinophils # 0.1 10^3/ul (0.0-0.5) Basophils # 0.0 10^3/ul (0.0-0.1) Nucleated Red Blood Cells # 0.0 10^3/ul (0.0-0.0) SUSAN CARRANZA MD Apr 24, 2018 19:29
[2018-04-24] MEDS: TAMSULOSIN (SR) 0.4 MG CAP PO SCH (20:40)
[2018-04-24] MEDS: ATORVASTATIN 80 MG TAB PO SCH (20:41)
[2018-04-24] MEDS: MONTELUKAST 10 MG TAB PO SCH (20:41)
== END 2018-04-24 23:20 | disposition home health service (06) | DRG 871 ==
LOC: E/R 13:35 → 6WM 15:18 → OBSVTOIN 03-29 07:48
PROVIDERS: ADMIT Internal Medicine; ATTEND Internal Medicine
PROC: 0Y9 Anatomical Regions, Lower Extremities, Drainage (ICD-10-PCS; principal; 2018-04-12)
PROC: 05H433Z Insertion of Infusion Device into Left Innominate Vein, Percutaneous Approach (ICD-10-PCS; 2018-04-23)
DX: A41.02 Sepsis due to Methicillin resistant Staphylococcus aureus (principal); I50.23 Acute on chronic systolic (congestive) heart failure; L89.313 Pressure ulcer of right buttock, stage 3; L02.415 Cutaneous abscess of right lower limb; I42.9 Cardiomyopathy, unspecified; I47.2 Ventricular tachycardia; M86.8X5 Other osteomyelitis, thigh; B95.62 Methicillin resistant Staphylococcus aureus infection as the cause of diseases classified elsewhere; E11.40 Type 2 diabetes mellitus with diabetic neuropathy, unspecified; E11.51 Type 2 diabetes mellitus with diabetic peripheral angiopathy without gangrene; E11.69 Type 2 diabetes mellitus with other specified complication; E78.5 Hyperlipidemia, unspecified; F17.200 Nicotine dependence, unspecified, uncomplicated; F14.10 Cocaine abuse, uncomplicated; F12.10 Cannabis abuse, uncomplicated; I11.0 Hypertensive heart disease with heart failure; I25.10 Atherosclerotic heart disease of native coronary artery without angina pectoris; J44.9 Chronic obstructive pulmonary disease, unspecified; L89.322 Pressure ulcer of left buttock, stage 2; S50.312A Abrasion of left elbow, initial encounter; S50.311A Abrasion of right elbow, initial encounter; X58.XXXA Exposure to other specified factors, initial encounter; I25.2 Old myocardial infarction; Z95.1 Presence of aortocoronary bypass graft; Z89.612 Acquired absence of left leg above knee; Z89.611 Acquired absence of right leg above knee; Z79.01 Long term (current) use of anticoagulants; Z91.14 Patient's other noncompliance with medication regimen
CPT/HCPCS: 36415; 36569; 71045; 73550; 73700; 73706; 73718; 76937; 78806; 80048; 80069; 80202; 80307; 81003; 82550; 82553; 82962; 83540; 83735; 83880; 84100; 84132; 84145; 84484; 85025; 85610; 85651; 85730; 86140; 87040; 87070; 87081; 87086; 90686; 93005; 93922; 93970; 94640; 94664; 97110; 97161; 97166; 97530; 97535; 97542; G0378; A9570; C1769; J0692; J0696; J1170; J1650; J1815; J1885; J1940; J2270; J2274; J3370; J3475; J7050; Q9967

== ENCOUNTER 2018-06-06 15:05 | Emergency (ER) | payer OTHER ==
[~2018-06-06] VITALS: Wt 72.7 kg
[~2018-06-06 15:05] MED LIST changes: +APIX5TAB PO; -ASCO500C7 PO; -CARV12.579 PO; +CHOL200056 PO; +DIGO125T PO; +DOXY100T20 PO; -LEVO500T48 PO; -LISI2.5T59 PO; +METO-319 PO; +MONT10TA24 PO; +OXYC15TA PO; +SACU1TAB PO; +SENOKOTS PO; -Vancomycin Iv Per Pharmacy XX
[2018-06-06] MEDS ORDERED: CEPH-443 PO (18:27)
--- NOTE | 2018-06-06 18:29 | ERD ---
ER Documentation Chief Complaint Chief Complaint LEFT ELBOW SWELLING & DISCHARGE HPI This is a 62-year-old male who has bilateral AKA's and he uses his elbows to scoot around on the floor. He saw his primary care doctor and was sent here for evaluation of a swollen left elbow. The patient says he has chronic swelling to his elbows but left greater than right and the left has a small 2 mm open circular wound where there is some serous drainage. There is no pus or infection or erythema or pain ROS All systems reviewed and are negative except as per history of present illness. Medications Home Meds Active Scripts Cephalexin* (Keflex*) 500 Mg Capsule, 500 MG PO QID for 7 Days, CAP Prov:LUIS LUCAS DO 06/06/18 Doxycycline Hyclate* (Doxycycline Hyclate*) 100 Mg Tablet.dr, 100 MG PO BID for 30 Days, #60 TAB 10 Refills Start on 05/31/18 when completed IV Vancomycin Prov:SUSAN FAULKNER MD 04/24/18 Sennosides/Docusate Sodium (Dok Plus Tablet) 1 Each Tablet, 1 TAB PO BID PRN for CONSTIPATION for 30 Days, #60 TAB 6 Refills Prov:SUSAN FAULKNER MD 04/24/18 Furosemide* (Furosemide*) 40 Mg Tablet, 40 MG PO DAILY for 30 Days, #30 TAB 6 Refills Prov:SUSAN FAULKNER MD 04/24/18 Oxycodone Hcl* (IR) (Oxycodone Hcl*) 15 Mg Tablet, 30 MG PO Q6H PRN for PAIN LEVEL 6-10 for 30 Days, #120 TAB Prov:SUSAN FAULKNER MD 04/24/18 Sacubitril/Valsartan (Entresto 24 mg-26 mg Tablet) 1 Each Tablet, 1 TAB PO BID for 30 Days, #60 TAB 6 Refills Prov:SUSAN FAULKNER MD 04/24/18 Metoprolol Succinate* (Toprol XL*) 50 Mg Tab.er.24h, 50 MG PO BID for 30 Days, # 60 TAB 6 Refills Prov:SUSAN FAULKNER MD 04/24/18 Digoxin* (Digitek*) 125 Mcg Tablet, 0.125 MG PO DAILY@13 for 30 Days, #30 TAB 6 Refills Prov:SUSAN FAULKNER MD 04/24/18 Apixaban* (Eliquis*) 5 Mg Tablet, 5 MG PO BID for 30 Days, #60 TAB 6 Refills Prov:SUSAN FAULKNER MD 04/24/18 Spironolactone* (Aldactone*) 25 Mg Tablet, 25 MG PO DAILY for 30 Days, #30 TAB 6 Refills Prov:SUSAN FAULKNER MD 04/24/18 Tiotropium [place]* (Spiriva*) 18 Mcg Cap.w.dev, 1 INH INH DAILY for 30 Days, #30 DOSE 2 Refills Prov:SUSAN FAULKNER MD 04/24/18 Tamsulosin Hcl* (Flomax*) 0.4 Mg Cap.er.24h, 0.4 MG PO HS for 30 Days, #30 CAP 2 Refills Prov:SUSAN FAULKNER MD 04/24/18 Ferrous Gluconate* (Fergon*) 325 Mg Tab, 325 MG PO BID, #60 TAB 2 Refills Prov:SUSAN FAULKNER MD 04/24/18 Pantoprazole* (Pantoprazole*) 40 Mg Tablet.dr, 40 MG PO DAILY@06 for 30 Days, #30 TAB 2 Refills Prov:MASTER HOWARD 01/29/18 Budesonide* (Budesonide*) 0.5 Mg/2 Ml Ampul.neb, 0.5 MG HHN BID RESP THERAPY for 30 Days, #30 AMP 2 Refills Prov:MASTER HOWARD 01/29/18 Ipratropium-Albuterol (Ipratropium-Albuterol) 0.5-3 Mg/3 Ml Ampul.neb, 3 ML HHN Q6HWA RESP THERAPY for 30 Days, #30 DOSE Prov:MASTER HOWARD 01/29/18 Reported Medications Montelukast Sodium* (Montelukast Sodium*) 10 Mg Tablet, 10 MG PO QHS, #30 TAB 03/28/18 Cholecalciferol (Vitamin D3) (Vitamin D-3) 2,000 Unit Tablet, 2000 UNIT PO BID, TAB 03/28/18 Atorvastatin* (Atorvastatin*) 80 Mg Tablet, 80 MG PO QHS, #30 TAB 06/27/17 Allergies Allergies: Coded Allergies: tetracycline (Verified Allergy, Intermediate, RASH, 03/28/18) PMhx/Soc History of Surgery: Yes (BILAT AKA, HEART GRAFT) Anesthesia Reaction: No Hx Neurological Disorder: Yes (DEPRESSION, B) Hx Respiratory Disorders: Yes (COPD, PULMO HTN) Hx Cardiac Disorders: Yes (CAD, HTN, DYSLIPIDEMIA, CHF) Hx Psychiatric Problems: Yes (DEPRESSION, BIPOLAR) Hx Miscellaneous Medical Probl: Yes (CHF, CAD, COPD, HTN, Dyslipidemia, depression,AKA secondary to PVD,) Hx Alcohol Use: No Hx Substance Use: Yes (COCAINE AND MARIJUANA) Hx Tobacco Use: Yes Smoking Status: Current every day smoker FmHx Family History: No coronary disease Physical Exam Vitals Vital Signs Date Temp Pulse Resp B/P (MAP) Pulse Ox O2 O2 Flow FiO2 Time Delivery Rate 06/06/18 97.2 84 18 125/82 97 15:08 (96) Physical Exam Const: Well-developed, well-nourished Head: Atraumatic, normocephalic Eyes: Normal Conjunctiva, PERRLA, EOMI, normal sclera, no nystagmus ENT: Normal External Ears, Nose and Mouth, moist mucus membranes. Neck: Full range of motion. No meningismus, no lymphadenopathy. Resp: Clear to auscultation bilaterally, no wheezing, rhonchi, rales Cardio: Regular rate and rhythm, no murmurs, S1 S2 present Abd: Soft, non tender x 4, non distended. Normal bowel sounds, no guarding or rebound, no pulsitile abdominal masses or bruits Skin: No petechiae or rashes, no ecchymosis , no maculopapular rash Back: No midline or flank tenderness Ext: No cyanosis, or edema, FROM x 4, normal inspection, neurovascularly intact x 4, the left elbow has a very mild olecranon bursitis there is not enough fluid to drain it is not ballotable there is a small open 2- 3 mm circular wound with some serous drainage but no erythema or pain there is full range of motion of the elbow Neur: Awake and alert, STR 5/5 x 4, sensation intact x 4, no focal findings, cerebellum intact Psych: Normal Mood and Affect Procedures/MDM MR #: [id number] DOS: 06/06/18 1711 Ordering MD: LUIS LUCAS DO Location: E/R Room/Bed: PROCEDURE: XR LEFT ELBOW. CLINICAL INDICATION: Swelling around the olecranon. Elbow pain. TECHNIQUE: 3views of the left elbow are available for review. COMPARISON: None available FINDINGS: There is chronic triceps insertional enthesopathy. There is soft tissue swelling adjacent to the enthesophyte and dorsal olecranon most consistent with bursitis. No elbow joint effusion is seen. No evidence for fracture. No evidence for erosive change. There is an osteophyte of the tip of the olecranon consistent with degenerative arthrosis. IMPRESSION: 1. Findings consistent with olecranon bursitis adjacent to a chronic triceps insertional enthesopathy. 2. No evidence for fracture, subluxation, or dislocation. 3. Elbow arthrosis at the tip of the olecranon. RPTAT: XX .Ashok Waldron MD, MD Date Time Electronically viewed and signed by .Ashok Waldron MD, on 06/06/2018 18:04 .T/ CC: LUIS LUCAS DO [id number] Told the patient home care and will discharge home with Keflex Departure Diagnosis: Primary Impression: Olecranon bursitis Laterality: left Qualified Codes: M70.22 - Olecranon bursitis, left elbow Condition: Stable Patient Instructions: Bursitis, Elbow (Olecranon) LUIS LUCAS DO Jun 06, 2018 18:29
[2018-06-06 19:14] VITALS: BP 137/90; PULSE 74; RESP 16
== END 2018-06-06 19:15 | disposition home or self-care (01) ==
LOC: E/R 15:05
DX: M70.22 Olecranon bursitis, left elbow (principal); R40.2142 Coma scale, eyes open, spontaneous, at arrival to emergency department; R40.2362 Coma scale, best motor response, obeys commands, at arrival to emergency department; R40.2252 Coma scale, best verbal response, oriented, at arrival to emergency department; I11.0 Hypertensive heart disease with heart failure; I50.9 Heart failure, unspecified; J44.9 Chronic obstructive pulmonary disease, unspecified; I25.10 Atherosclerotic heart disease of native coronary artery without angina pectoris; F17.210 Nicotine dependence, cigarettes, uncomplicated; Y93.9 Activity, unspecified
CPT/HCPCS: 73080; Z7502